=== PATIENT | female | born 1960 | race Two or more races ===

== ENCOUNTER 2018-03-05 17:41 | Inpatient (IN) | payer MEDICARE, OTHER ==
[~2018-03-05] VITALS: Ht 167.6 cm; Wt 75.3 kg
--- NOTE | 2018-03-05 19:42 | PHYS DOC ---
Adult General Chief Complaint Chief Complaint: DIALYSIS PROBLEM HPI HPI Patient is a 57 year old female who presents with this [facility] she had a new dialysis catheter placed in her right chest. Her old catheter stopped working after she received her for full dialysis treatment on Monday. She only received a half dialysis on . Today she went to have dialysis and were able to flush the port but the dialysis would not work when it was up. Patient states that at [facility] they put Flow in the catheter and then pulled back and got some clot-like stuff out of it. Patient states they then started to try else's again and is still would not work. [facility] sent them to the ED. Review of Systems Review of Systems Constitutional: Denies fever or chills [] Eyes: Denies change in visual acuity, redness, or eye pain [] HENT: Denies nasal congestion or sore throat [] Respiratory: Denies cough or shortness of breath [] Cardiovascular: No additional information not addressed in HPI [] GI: Realized abdominal pain, nausea, vomiting, denies bloody stools or diarrhea [] : Denies dysuria or hematuria [] Musculoskeletal: Denies back pain or joint pain [] Integument: Denies rash or skin lesions [] Neurologic: Denies headache, focal weakness or sensory changes [] All other systems were reviewed and found to be within normal limits, except as documented in this note. Allergies Allergies Physical Exam Physical Exam Constitutional: Well developed, well nourished, no acute distress, non-toxic appearance. [] HENT: Normocephalic, atraumatic, bilateral external ears normal, oropharynx moist, no oral exudates, nose normal. [] Eyes: PERRLA, EOMI, conjunctiva normal, no discharge. [] Neck: Normal range of motion, no tenderness, supple, no stridor. [] Cardiovascular:Heart rate regular rhythm, no murmur [] Lungs & Thorax: Bilateral breath sounds clear to auscultation [] Abdomen: Bowel sounds normal, firm, generalized tenderness, no masses, no pulsatile masses. [] Skin: Warm, dry, no erythema, no rash. [] Back: No tenderness, no CVA tenderness. [] Extremities: No tenderness, no cyanosis, no clubbing, ROM intact, no edema. [] Neurologic: Alert and oriented X 3, normal motor function, normal sensory function, no focal deficits noted. [] Psychologic: Affect normal, judgement normal, mood normal. [] Current Patient Data Vital Signs Vital Signs Date Time Temp Pulse Resp B/P (MAP) Pulse Ox O2 Delivery O2 Flow Rate FiO2 03/05/18 21:17 104 16 123/82 (96) 100 Nasal Cannula 2.0 03/05/18 19:20 97.9 97.9 Lab Values Laboratory Tests Test 03/05/18 20:10 White Blood Count 15.1 x10^3/uL (4.0-11.0) H Red Blood Count 2.72 x10^6/uL (3.50-5.40) L Hemoglobin 7.9 g/dL (12.0-15.5) L Hematocrit 24.8 % (36.0-47.0) L Mean Corpuscular Volume 91 fL (79-100) Mean Corpuscular Hemoglobin 29 pg (25-35) Mean Corpuscular Hemoglobin Concent 32 g/dL (31-37) Red Cell Distribution Width 19.5 % (11.5-14.5) H Platelet Count 383 x10^3/uL (140-400) Neutrophils (%) (Auto) 90 % (31-73) H Lymphocytes (%) (Auto) 4 % (24-48) L Monocytes (%) (Auto) 6 % (0-9) Eosinophils (%) (Auto) 0 % (0-3) Basophils (%) (Auto) 0 % (0-3) Neutrophils # (Auto) 13.5 x10^3uL (1.8-7.7) H Lymphocytes # (Auto) 0.5 x10^3/uL (1.0-4.8) L Monocytes # (Auto) 1.0 x10^3/uL (0.0-1.1) Eosinophils # (Auto) 0.1 x10^3/uL (0.0-0.7) Basophils # (Auto) 0.0 x10^3/uL (0.0-0.2) Segmented Neutrophils % 91 % (35-66) H Band Neutrophils % 4 % (0-9) Lymphocytes % 2 % (24-48) L Monocytes % 3 % (0-10) Nucleated Red Blood Cells 1 Toxic Granulation Slight Platelet Estimate Adequate (ADEQUATE) Giant Platelets Occ Polychromasia Slight Hypochromasia Slight Poikilocytosis Slight Basophilic Stippling Present Anisocytosis Slight Spherocytes Occ Helmet Cells Occ Sodium Level 136 mmol/L (136-145) Potassium Level 5.6 mmol/L (3.5-5.1) H Chloride Level 94 mmol/L (98-107) L Carbon Dioxide Level 31 mmol/L (21-32) Anion Gap 11 (6-14) Blood Urea Nitrogen 131 mg/dL (7-20) H Creatinine 8.5 mg/dL (0.6-1.0) H Estimated GFR (Cockcroft-Gault) 4.8 BUN/Creatinine Ratio 15 (6-20) Glucose Level 93 mg/dL (70-99) Calcium Level 9.9 mg/dL (8.5-10.1) Total Bilirubin 0.3 mg/dL (0.2-1.0) Aspartate Amino Transferase (AST) 47 U/L (15-37) H Alanine Aminotransferase (ALT) 16 U/L (14-59) Alkaline Phosphatase 142 U/L (46-116) H Total Protein 6.7 g/dL (6.4-8.2) Albumin 2.2 g/dL (3.4-5.0) L Albumin/Globulin Ratio 0.5 (1.0-1.7) L Laboratory Tests 03/05/18 20:10 Laboratory Tests 03/05/18 20:10 EKG EKG Sinus rhythm no STEMI[] Interpretation Time: [address] CATHERINE Radiology/Procedures Radiology/Procedures PROCEDURE: CHEST PA & LATERAL CHEST PA LATERAL History: SOA,VOMITING, DIALYSIS PORT NOT WORKING Comparison: None. Findings: Right chest Port-A-Cath, tip at superior atriocaval junction. There is right IJ hemodialysis catheter, tip in the upper right atrium. There is left Pleurx catheter. Cardiac size upper limits of normal. Pulmonary vasculature is normal. Trace bilateral pleural effusions. Mild bibasilar airspace disease. No pneumothorax is seen. There is no acute bone abnormality. IMPRESSION: Trace bilateral pleural effusions. Mild bibasilar airspace disease. Electronically signed by: Chase Traylor MD (03/05/2018 11:08 PM) [facility] Course & Med Decision Making Course & Med Decision Making Patient is a 57 year old female who presents with this [facility] she had a new dialysis catheter placed in her right chest. Her old catheter stopped working after she received her for full dialysis treatment on Monday. She only received a half dialysis on . Today she went to have dialysis and were able to flush the port but the dialysis would not work when it was up. Patient states that at [facility] they Cath Flow in the catheter and then pulled back and got some clot-like stuff out of it. Patient states they then started to try else's again and is still would not work. [facility] sent them to the ED. patient states she has pain were the fresh catheter was placed today but otherwise no pain. She states she vomited twice this morning. Abdomen is firm and tender with palpation. Patient is alert and oriented. Skin is pink warm and dry. Mucous membranes are moist. She denies chest pain, shortness of air, dizziness, numbness or tingling or focal weaknesses. I spoken to Dr. Gomez from Interventional radiology he states he can place a temporary catheter tomorrow morning dialysis patient. States also consult nephrology. I have spoken to Dr Lawrence with Nephrology and he states to make sure to give her Kayexalate and then she can be dialyzed in the morning. Dragon Disclaimer Dragon Disclaimer This electronic medical record was generated, in whole or in part, using a voice recognition dictation system. Departure Departure Impression: Primary Impression: Hyperkalemia Additional Impression: Dialysis catheter clot or failure Disposition: ADMITTED INPATIENT Admitting Physician: Xie. Miranda Condition: GUARDED Referrals: FERNANDEZ PERRY MD (PCP) Problem Qualifiers ANA GARCIA APRN Mar 05, 2018 19:42 GARO CATHERINE DO Mar 07, 2018 14:27
[2018-03-05 20:39] LABS: CALCIUM 9.9 mg/dL (8.5-10.1); CREATININE 8.5 mg/dL (0.6-1.0); GFR 4.8; POTASSIUM 5.6 mmol/L (3.5-5.1)
[2018-03-05 20:40] LABS: BASO % 0 % (0-3); EOS # 0.1 x10^3/uL (0.0-0.7); EOS % 0 % (0-3); HEMATOCRIT 24.8 % (36.0-47.0); HEMOGLOBIN 7.9 g/dL (12.0-15.5); LYMPH # 0.5 x10^3/uL (1.0-4.8); LYMPH % 4 % (24-48); MEAN CORPUSCULAR HEMOGLOBIN 29 pg (25-35); MEAN CORPUSCULAR HGB CONC 32 g/dL (31-37); MEAN CORPUSCULAR VOLUME 91 fL (79-100); MONO % 6 % (0-9); NEUT # 13.5 x10^3uL (1.8-7.7); NEUT % 90 % (31-73); PLATELET COUNT 383 x10^3/uL (140-400); RED BLOOD COUNT 2.72 x10^6/uL (3.50-5.40); RED CELL DISTRIBUTION WIDTH 19.5 % (11.5-14.5); WHITE BLOOD COUNT 15.1 x10^3/uL (4.0-11.0)
[2018-03-05 20:45] LABS: ALBUMIN 2.2 g/dL (3.4-5.0); ALBUMIN/GLOBULIN RATIO 0.5 (1.0-1.7); TOTAL BILIRUBIN 0.3 mg/dL (0.2-1.0); TOTAL PROTEIN 6.7 g/dL (6.4-8.2)
[2018-03-05 21:32] LABS: % BANDS 4 % (0-9); % LYMPHS 2 % (24-48); % MONOS 3 % (0-10); % SEGS 91 % (35-66); ANISOCYTOSIS SLIGHT; HYPOCHROMIA SLIGHT; NUCLEATED RBC 1; PLT ESTIMATE ADEQUATE (ADEQUATE); POIKILOCYTOSIS SLIGHT; POLYCHROMASIA SLIGHT; SPHEROCYTES OCC
[2018-03-05 21:33] LABS: HELMET CELLS OCC; TOXIC GRANULATION SLIGHT
[2018-03-05] MEDS ORDERED: ONDANSETRON PF 4 MG/2 ML VIAL. IV PRN (22:00)
[2018-03-05] MEDS ORDERED: SODIUM POLYSTYRENE SULFONATE 15 GM/60 ML ORAL.SUSP. PO ONE (22:15)
[2018-03-05] MEDS ORDERED: SODIUM BICARB ADULT 8.4% 50 MEQ/50 ML DISP.SYRIN. IV ONE (22:15)
[2018-03-05] MEDS ORDERED: CALCIUM GLUCONATE 1,000 MG/10 ML VIAL. IVP ONE (22:15)
[2018-03-05] MEDS ORDERED: ONDANSETRON PF 4 MG/2 ML VIAL. IV ONE (22:45)
[2018-03-05] MEDS: fentaNYL PF VIAL 100 MCG/2 ML VIAL IV PRN (22:55)
--- NOTE | 2018-03-05 23:12 | RAD ---
CHEST PA LATERAL History: SOA,VOMITING, DIALYSIS PORT NOT WORKING Comparison: None. Findings: Right chest Port-A-Cath, tip at superior atriocaval junction. There is right IJ hemodialysis catheter, tip in the upper right atrium. There is left Pleurx catheter. Cardiac size upper limits of normal. Pulmonary vasculature is normal. Trace bilateral pleural effusions. Mild bibasilar airspace disease. No pneumothorax is seen. There is no acute bone abnormality. IMPRESSION: Trace bilateral pleural effusions. Mild bibasilar airspace disease. Electronically signed by: Chase Traylor MD (03/05/2018 11:08 PM) [facility]
--- NOTE | 2018-03-05 23:52 | NUR ---
Pt.just arrived from ED w/ a dialysis catheter problem. She is A/O x4 and will make needs known. @ BS.
[2018-03-06] VITALS (15 sets, daily range): BP systolic 109–136; BP diastolic 67–86
--- NOTE | 2018-03-06 00:36 | EKG ---
[facility] [address] [place] [address] Test Date: 2018-03-05 Test Time: 19:53:44 Pat Name: MARIA LUISA HAYES Department: Room: [facility] Gender: Female Graduate Intern: : 1960 Requested By: ANA GARCIA Order Number: [id number] Reading MD: Fahad Moran Measurements Intervals Marine Rate: 97 P: 51 VA: 138 QRS: 43 QRSD: 82 T: 31 QT: 326 QTc: 418 Interpretive Statements SINUS RHYTHM LEFT ATRIAL ABNORMALITY Electronically Signed On 03-09-2018 17:14:07 JAW SKINNER by Fahad Moran
[2018-03-06] MEDS ORDERED: DEXA4TAB PO (03:51)
[2018-03-06] MEDS ORDERED: MELA3TAB2 PO (03:51)
[2018-03-06] MEDS ORDERED: FENT1PAT17 TP (03:51)
[2018-03-06] MEDS ORDERED: CARV25TA2 PO (03:51)
[2018-03-06] MEDS ORDERED: CLON0.1T PO (03:51)
[2018-03-06] MEDS ORDERED: ONDA4TAB12 PO (03:51)
[2018-03-06] MEDS ORDERED: POLY17PO29 PO (03:51)
[2018-03-06] MEDS ORDERED: GUAI118L13 PO (03:51)
[2018-03-06] MEDS ORDERED: OXYC5CAP PO (03:51)
[2018-03-06] MEDS ORDERED: FAMO40TA4 PO (03:51)
[2018-03-06] MEDS ORDERED: LORA0.5T96 PO (03:51)
[2018-03-06] MEDS ORDERED: ALBU2.5V8 INH (03:51)
[2018-03-06] MEDS ORDERED: SERT100T PO (03:51)
[2018-03-06] MEDS ORDERED: FLUT9.9S NS (03:51)
[2018-03-06] MEDS ORDERED: CALC667T4 PO (03:51)
[2018-03-06] MEDS ORDERED: SENN-87 PO (03:51)
[2018-03-06] MEDS ORDERED: MULT-735 PO (03:51)
[2018-03-06] MEDS: fentaNYL PF VIAL 100 MCG/2 ML VIAL IV PRN (05:35)
[2018-03-06] MEDS ORDERED: oxyCODONE IR 5 MG TABLET PO PRN (06:15)
[2018-03-06] MEDS ORDERED: PROCHLORPERAZINE 10 MG/2 ML VIAL. IM PRN (06:15)
[2018-03-06] MEDS ORDERED: LIDOCAINE 1%/EPI 1:100,000 20 ML VIAL. ONE (09:11)
[2018-03-06] MEDS ORDERED: MIDAZOLAM HCL/PF 2 MG/2 ML VIAL. ONE (09:34)
[2018-03-06] MEDS ORDERED: fentaNYL PF VIAL 100 MCG/2 ML VIAL ONE (09:34)
[2018-03-06] MEDS ORDERED: HEPARIN for IV BOLUS 10,000 UNIT/10 ML VIAL. ONE (09:44)
--- NOTE | 2018-03-06 10:20 | RAD ---
Procedure: Tunneled hemodialysis catheter placement and tunneled hemodialysis catheter removal Clinical Indication: 57-year-old female with nonfunctioning right IJ tunneled hemodialysis catheter, requiring hemodialysis. Sedation: Conscious sedation was administered for 27 minutes. The patient was monitored by a qualified independent observer throughout the time of sedation. Please refer to the medical record for exact doses of medications utilized to achieve moderate sedation. Antibiotics: Antibiotic was administered intravenously within 1 hour of the procedure start time. Fluoro Time: 0.3 minutes. Images: 2 Contrast: None Sterility: All elements of maximal sterile barrier technique including the use of a cap, mask, sterile gown, sterile gloves, large sterile sheet, appropriate hand hygiene, and 2% chlorhexidine for cutaneous antisepsis (or acceptable alternative antiseptic per current guidelines) were followed for this procedure. Consent: The procedure was explained in its entirety to the patient or the patients designated communications representative by a member of the treatment team, including a discussion of the risks, benefits and commonly accepted alternatives to the procedure, as well as the expected consequences of no therapy whatsoever. Discussion of the risks included, but was not limited to, those that are most frequent and those that are rare but possibly severe or life-threatening, as well as the possibility of unforeseen complications. Technique and Findings: Following informed consent, the patient was prepped and draped in the usual sterile fashion. Fluoroscopy over the right chest revealed a kinked right IJ tunnel hemodialysis catheter. This was deemed not suitable for use and suboptimal for exchange. Ultrasound interrogation of the left neck revealed patency and compressibility of the left internal jugular vein. A 21-gauge micropuncture was then used to gain access to this vein under ultrasound guidance. A hard copy ultrasound image was recorded. The needle was exchanged over a wire for a 4 Burmese sheath which was used to guide an Amplatz wire into the IVC. The skin over the left anterior chest wall was copiously anesthetized with 1% Lidocaine plus Epinephrine and a small dermatotomy was made. A 28 cm palindrome tunneled hemodialysis catheter was then tunneled subcutaneously towards the neck dermatotomy and deployed through a large caliber peel-away sheath under fluoroscopic guidance such that the distal tip resided in the mid right atrium. Manual flow rates were assessed and found to be excellent. The catheter was then flushed, packed with Heparin, capped, and sutured to the skin. The neck dermatotomy was closed with Dermabond. The tunneled catheter on the right was then anesthetized 1% lidocaine and blunt dissection techniques were used to free the cuff, and the catheter was then removed in its entirety and hemostasis was achieved with manual compression. Complications: No immediate Impression: 1. Tunneled hemodialysis catheter placement via the left internal jugular vein as described. This catheter demonstrates excellent manual flow rates and is suitable for use immediately. 2. Tunneled hemodialysis catheter removal from the right internal jugular vein as described.
[2018-03-06] MEDS ORDERED: fentaNYL PF VIAL 100 MCG/2 ML VIAL IV ONE (10:30)
[2018-03-06] MEDS ORDERED: MIDAZOLAM HCL/PF 2 MG/2 ML VIAL. IV ONE (10:30)
[2018-03-06] MEDS ORDERED: LIDOCAINE 1%/EPI 1:100,000 20 ML VIAL. IJ ONE (10:30)
[2018-03-06] MEDS ORDERED: LORazepam 0.5 MG TABLET PO PRN (11:30)
[2018-03-06] MEDS ORDERED: guaiFENesin/CODEINE 100mg/10mg 5 ML LIQUID PO PRN (11:45)
[2018-03-06] MEDS: SERTRALINE 50 MG TABLET. PO SCH (12:14)
[2018-03-06] MEDS: CARVEDILOL 6.25 MG TABLET. PO SCH ×2 (12:15→18:11)
[2018-03-06] MEDS: cloNIDine HCL 0.1 MG TABLET PO SCH ×2 (12:15→20:51)
[2018-03-06] MEDS: DEXAMETHASONE 4 MG TABLET PO SCH (12:15)
[2018-03-06] MEDS: SENNOSIDES 8.6 MG TABLET PO SCH (12:15)
[2018-03-06] MEDS: MULTIVITAMIN with MINERAL TABLET. PO SCH (12:15)
[2018-03-06] MEDS: FLUTICASONE 50MCG/NASAL SPRAY 16GM BOTTLE. NS SCH (12:16)
[2018-03-06] MEDS: CALCIUM ACETATE 667 MG CAPSULE PO SCH ×2 (12:16→18:10)
[2018-03-06] MEDS ORDERED: IV NORMAL SALINE 1000ML BAG 1,000 ML IV PRN ×2 (12:30)
[2018-03-06] MEDS: PROCHLORPERAZINE 10 MG/2 ML VIAL. IV PRN (12:34)
--- NOTE | 2018-03-06 13:11 | PDOC2 ---
CONSULT Date of Consult Date of Consult DATE: 03/06/18 TIME: 12:53 Reason for Consult Reason for Consult: ESRD, ^K Referring Physician Referring Physician: Aidee Arias in ER Identification/Chief Complaint Chief Complaint not feeling good. Non-functioning HD Cath Source Source: Caregiver (), Chart review, Patient History of Present Illness Reason for Visit: Mrs. Cox is a pleasant 57-year-old female who currently dial[facility]zes [facility] a [facility] the care of Dr. Richey. She has had difficulties with hemodialysis catheter malfunction. She' s had this replaced almost 2-3 times. tPA was administered at the dialysis unit yesterday in an attempt to get it to work however this failed and she was sent to the ER for further evaluation. Her potassium was 5.6 at presentation and hence it was decided to admit the patient. She was initially treated with Kayexalate. Interventional radiology has been consulted for dialysis catheter exchange. This will be tried on hemodialysis later today. Based on my discussion with the patient it appears that she has not had dialysis for almost a week. Her ESRD status has been attribute it to chemotherapy for ovarian cancer Past Medical History Past Medical History Ovarian cancer status post chemotherapy ESRD on dialysis Previous history of tobaccoism Anemia chronic kidney disease GERD Depression Family History Family History Noncontributory to current problems. Social History Quit Lives: with Family Domestic Violence: Neg Current Problem List Problem List Problems Medical Problems: (1) Dialysis catheter clot or failure Status: Acute (2) Serum potassium elevated Status: Acute Current Medications Current Medications Current Medications Ondansetron HCl (Zofran) 4 mg PRN Q8HRS PRN IV NAUSEA/VOMITING Last administered on 03/06/18at 05:34; Start 03/05/18 at 22:00; Stop 03/06/18 at 21:59 Fentanyl Citrate (Fentanyl 2ml Vial) 50 mcg PRN Q1HR PRN IV PAIN Last administered on 03/06/18at 05:35; Start 03/05/18 at 22:00; Stop 03/06/18 at 21:59 Calcium Gluconate (Calcium Gluconate) 1,000 mg 1X ONCE IVP Last administered on 03/05/18at 23:23; Start 03/05/18 at 22:15; Stop 03/05/18 at 22:16; Status DC Sodium Bicarbonate (Sodium Bicarb Adult 8.4% Syr) 50 meq 1X ONCE IV Last administered on 03/05/18at 23:23; Start 03/05/18 at 22:15; Stop 03/05/18 at 22 :16; Status DC Sodium Polystyrene Sulfonate (Kayexalate) 30 gm 1X ONCE PO Last administered on 03/05/18at 23:23; Start 03/05/18 at 22:15; Stop 03/05/18 at 22:16; Status DC Ondansetron HCl (Zofran) 4 mg 1X ONCE IV Last administered on 03/05/18at 22:55 ; Start 03/05/18 at 22:45; Stop 03/05/18 at 22:55; Status DC Prochlorperazine Edisylate (Compazine) 10 mg PRN Q6HRS PRN IM NAUSEA/VOMITING; Start 03/06/18 at 06:15; Stop 03/06/18 at 12:32; Status DC Oxycodone HCl (Roxicodone) 10 mg PRN Q4HRS PRN PO PAIN; Start 03/06/18 at 06:15 Oxycodone HCl (Roxicodone) 20 mg PRN Q4HRS PRN PO PAIN; Start 03/06/18 at 06:15 Lidocaine/ Epinephrine (LIDOCAINE 1%-EPI 1:100,000 Multi-Dose) 20 ml STK-MED ONCE .ROUTE ; Start 03/06/18 at 09:11; Stop 03/06/18 at 09:12; Status DC Cefazolin Sodium 50 ml @ As Directed STK-MED ONCE IV ; Start 03/06/18 at 09:34; Stop 03/06/18 at 09:35; Status DC Midazolam HCl (Versed) 2 mg STK-MED ONCE .ROUTE ; Start 03/06/18 at 09:34; Stop 03/06/18 at 09:35; Status DC Fentanyl Citrate (Fentanyl 2ml Vial) 100 mcg STK-MED ONCE .ROUTE ; Start at 09:34; Stop 03/06/18 at 09:35; Status DC Heparin Sodium (Porcine) (Heparin Sodium) 10,000 unit STK-MED ONCE .ROUTE ; Start 03/06/18 at 09:44; Stop 03/06/18 at 09:46; Status DC Midazolam HCl (Versed) 2 mg 1X ONCE IV Last administered on 03/06/18 10:11; Start 03/06/18 at 10:30; Stop 03/06/18 at 10:35; Status DC Fentanyl Citrate (Fentanyl 2ml Vial) 100 mcg 1X ONCE IV Last administered on at 10:11; Start 03/06/18 at 10:30; Stop 03/06/18 at 10:35; Status DC Lidocaine/ Epinephrine (LIDOCAINE 1%-EPI 1:100,000 Multi-Dose) 20 ml 1X ONCE IJ Last administered on 03/06/18at 10:09; Start 03/06/18 at 10:30; Stop 03/06/18 at 10:35; Status DC Cefazolin Sodium 50 ml @ 100 mls/hr 1X ONCE IV Last administered on 03/06/18 10:11; Start 03/06/18 at 10:30; Stop 03/06/18 at 10:59; Status DC Heparin Sodium (Porcine) (Heparin Sodium) 4,200 unit 1X ONCE INT CAT Last administered on 03/06/18at 10:11; Start 03/06/18 at 10:30; Stop 03/06/18 at 10:35; Status DC Clonidine HCl (Catapres) 0.1 mg BID PO Last administered on 03/06/18 12:15; Start 03/06/18 at 12:00 Dexamethasone (Decadron) 16 mg DAILY PO Last administered on 03/06/18at 12:15; Start 03/06/18 at 12:00 Fentanyl (Duragesic 50mcg/ Hr Patch) 1 patch Q3DAYS TD ; Start 03/09/18 at 09:00 Lorazepam (Ativan) 0.5 mg PRN Q12HRS PRN PO ANXIETY / AGITATION; Start 03/06/18 at 11:30 Ondansetron HCl (Zofran Odt) 8 mg PRN Q8HRS PRN PO NAUSEA/VOMITING; Start at 11:30 Calcium Acetate (Phoslo) 667 mg TIDWMEALS PO Last administered on 03/06/18at 12: 16; Start 03/06/18 at 12:00 Carvedilol (Coreg) 6.25 mg BIDWMEALS PO Last administered on 03/06/18at 12:15; Start 03/06/18 at 12:00 Famotidine (Pepcid) 20 mg QHS PO ; Start 03/06/18 at 21:00 Fluticasone Propionate (Flonase) 1 spray DAILY NS Last administered on at 12:16; Start 03/06/18 at 12:00 Guaifenesin/ Codeine Phosphate (Robitussin Ac) 10 ml PRN Q4HRS PRN PO COUGH; Start 03/06/18 at 11:45 Non-Formulary Medication (Melatonin ) 1 tab QHS PO ; Start 03/06/18 at 21:00; Status UNV Multivitamins (Thera M Plus) 1 tab DAILY PO Last administered on 03/06/18at 12:15 ; Start 03/06/18 at 12:00 Polyethylene Glycol (miraLAX PACKET) 17 gm QHS PO ; Start 03/06/18 at 21:00 Sennosides (Senna) 8.6 mg DAILY PO Last administered on 03/06/18at 12:15; Start 03/06/18 at 12:00 Sertraline HCl (Zoloft) 150 mg DAILY PO Last administered on 03/06/18at 12:14; Start 03/06/18 at 12:00 Prochlorperazine Edisylate (Compazine) 10 mg PRN Q6HRS PRN IV NAUSEA/VOMITING Last administered on 03/06/18at 12:34; Start 03/06/18 at 12:45 Active Scripts Active Reported Zoloft (Sertraline Hcl) 100 Mg Tablet 150 Mg PO DAILY Senna Lax (Sennosides) 8.6 Mg Tablet 8.6 Mg PO DAILY Proair Hfa (Albuterol Sulfate) 8.5 Gm Hfa.aer.ad 2 Puff INH PRN Q6HRS PRN Miralax (Polyethylene Glycol 3350) 17 Gm Powd.pack 1 Pkt PO HS Oxycodone Hcl 5 Mg Capsule 20 Mg PO PRN Q4HRS PRN Oxycodone Hcl 5 Mg Capsule 10 Mg PO PRN Q4HRS PRN Ondansetron Odt (Ondansetron) 4 Mg Tab.rapdis 8 Mg PO PRN Q8HRS PRN One-Daily Multi-Vitamin (Multivitamin) 1 Each Tablet 1 Each PO HS Melatonin 3 Mg Tablet 1 Tab PO QHS Ativan (Lorazepam) 0.5 Mg Tablet 0.5 Mg PO PRN Q12HRS PRN Guaifenesin-Codeine Syrup (Guaifenesin/Codeine Phosphate) 118 Ml Liquid 10 Ml PO PRN Q4HRS PRN Flonase Allergy Relief (Fluticasone Propionate) 9.9 Ml Sylvester.susp 1 Sprays NS DAILY FENTANYL 50mcg/hr (Fentanyl) 1 Each Patch.td72 1 Patch TP Q3DAYS Famotidine 40 Mg Tablet 20 Mg PO HS Dexamethasone 4 Mg Tablet 4 Tab PO DAILY Clonidine Hcl 0.1 Mg Tablet 0.1 Mg PO BID Carvedilol 25 Mg Tablet 6.25 Mg PO BIDWMEALS Calcium Acetate 667 Mg Tablet 667 Mg PO TIDWMEALS Allergies Allergies: Coded Allergies: Iodinated Contrast- Oral and IV Dye (Verified Allergy, Intermediate, ) milk (Verified Allergy, Intermediate, 03/06/18) paclitaxel (Verified Allergy, Intermediate, 03/06/18) ROS Review of System as per HPI. 14 - pt ROS reviewed with Pt and Physical Exam Physical Exam General Appearance: Awake, slightly drowsy vs tired. Oriented x 3 In no Distress Eyes: VIsion Unchanged Conjunctiva Normal EN: No EN Drainage Mucous Memb. moist Neck: no JVD min JVP Supple no Thyromegaly CVS: S1 S2 ? Murmur No Gallop No Rub tr Edema Resp: no Rales no Rhonchi no Acc. Muscle use GI: BAS +ve NO Bruit Non Tender ? Obese vs Distended : no CVA tenderness; no Suprapubic Tenderness SKIN: no visible petechial Rashes Breast Exam deferred Mu.Sk: Adequate ROM min Muscle Atrophy Heme: Unable to palpate Obvious LAD no palp Splenomegaly NEURO: Good Strength and Tone Cranial Nerves II - XII grossly intact Psych: somewhat Depressed vs Ch Ill appearring, no Active hallucination Vital Signs Vital Signs Date Time Temp Pulse Resp B/P (MAP) Pulse Ox O2 Delivery O2 Flow Rate FiO2 03/06/18 12:15 107 115/67 03/06/18 12:05 18 98 Nasal Cannula 2.0 03/06/18 11:00 97.6 97.6 Assessment & Plan ESRD : Dialysis as below F 180 NR 3.5 Hrs 2 K 2.5 Ca 140 Na 35 HC03 Qb 350 + Qd 500+ Heparin 0 Units Uf 0-1 Kgs or to dry weight as tolerated May give 25-50 gms of 25% Albumin if needed to maintain Hemodynamic stability Treatment plan reviewed and discussed with inspector exhaust emissions Poorly functioning hemodialysis catheter: This appears to have been changed out. We will see how this works Anemia: Epogen as ordered. Transfuse with next HD as needed. HTN: Current BP meds reviewed. See orders for changes. Possible intravascular volume depletion cannot be ruled out. Probably due to poor by mouth intake Hyperkalemia: Patient was treated with Kayexalate. I anticipate this to improve with dialysis. Possible uremic symptoms. It is unclear to me if some of this is related to her lack of dialysis for approximately one week versus associated with her underlying ovarian cancer. She is agreeable to dialysis to 3 straight days in a row. Will attempt to get her back on her regular outpatient schedule Bone & Mineral: Follow phosphorus levels and alter binder regimen as needed. Discussed Plan of Care and prognosis etc. at length with family. Labs Labs Laboratory Tests Test 03/05/18 20:10 03/06/18 07:35 White Blood Count 15.1 x10^3/uL (4.0-11.0) Red Blood Count 2.72 x10^6/uL (3.50-5.40) Hemoglobin 7.9 g/dL (12.0-15.5) Hematocrit 24.8 % (36.0-47.0) Mean Corpuscular Volume 91 fL (79-100) Mean Corpuscular Hemoglobin 29 pg (25-35) Mean Corpuscular Hemoglobin Concent 32 g/dL (31-37) Red Cell Distribution Width 19.5 % (11.5-14.5) Platelet Count 383 x10^3/uL (140-400) Neutrophils (%) (Auto) 90 % (31-73) Lymphocytes (%) (Auto) 4 % (24-48) Monocytes (%) (Auto) 6 % (0-9) Eosinophils (%) (Auto) 0 % (0-3) Basophils (%) (Auto) 0 % (0-3) Neutrophils # (Auto) 13.5 x10^3uL (1.8-7.7) Lymphocytes # (Auto) 0.5 x10^3/uL (1.0-4.8) Monocytes # (Auto) 1.0 x10^3/uL (0.0-1.1) Eosinophils # (Auto) 0.1 x10^3/uL (0.0-0.7) Basophils # (Auto) 0.0 x10^3/uL (0.0-0.2) Segmented Neutrophils % 91 % (35-66) Band Neutrophils % 4 % (0-9) Lymphocytes % 2 % (24-48) Monocytes % 3 % (0-10) Nucleated Red Blood Cells 1 Toxic Granulation Slight Platelet Estimate Adequate (ADEQUATE) Giant Platelets Occ Polychromasia Slight Hypochromasia Slight Poikilocytosis Slight Basophilic Stippling Present Anisocytosis Slight Spherocytes Occ Helmet Cells Occ Sodium Level 136 mmol/L (136-145) Potassium Level 5.6 mmol/L (3.5-5.1) Chloride Level 94 mmol/L (98-107) Carbon Dioxide Level 31 mmol/L (21-32) Anion Gap 11 (6-14) Blood Urea Nitrogen 131 mg/dL (7-20) Creatinine 8.5 mg/dL (0.6-1.0) Estimated GFR (Cockcroft-Gault) 4.8 BUN/Creatinine Ratio 15 (6-20) Glucose Level 93 mg/dL (70-99) Calcium Level 9.9 mg/dL (8.5-10.1) Total Bilirubin 0.3 mg/dL (0.2-1.0) Aspartate Amino Transf (AST/SGOT) 47 U/L (15-37) Alanine Aminotransferase (ALT/SGPT) 16 U/L (14-59) Alkaline Phosphatase 142 U/L (46-116) Total Protein 6.7 g/dL (6.4-8.2) Albumin 2.2 g/dL (3.4-5.0) Albumin/Globulin Ratio 0.5 (1.0-1.7) Glucose (Fingerstick) 94 mg/dL (70-99) Laboratory Tests Test 03/05/18 20:10 03/06/18 07:35 White Blood Count 15.1 x10^3/uL (4.0-11.0) Red Blood Count 2.72 x10^6/uL (3.50-5.40) Hemoglobin 7.9 g/dL (12.0-15.5) Hematocrit 24.8 % (36.0-47.0) Mean Corpuscular Volume 91 fL (79-100) Mean Corpuscular Hemoglobin 29 pg (25-35) Mean Corpuscular Hemoglobin Concent 32 g/dL (31-37) Red Cell Distribution Width 19.5 % (11.5-14.5) Platelet Count 383 x10^3/uL (140-400) Neutrophils (%) (Auto) 90 % (31-73) Lymphocytes (%) (Auto) 4 % (24-48) Monocytes (%) (Auto) 6 % (0-9) Eosinophils (%) (Auto) 0 % (0-3) Basophils (%) (Auto) 0 % (0-3) Neutrophils # (Auto) 13.5 x10^3uL (1.8-7.7) Lymphocytes # (Auto) 0.5 x10^3/uL (1.0-4.8) Monocytes # (Auto) 1.0 x10^3/uL (0.0-1.1) Eosinophils # (Auto) 0.1 x10^3/uL (0.0-0.7) Basophils # (Auto) 0.0 x10^3/uL (0.0-0.2) Segmented Neutrophils % 91 % (35-66) Band Neutrophils % 4 % (0-9) Lymphocytes % 2 % (24-48) Monocytes % 3 % (0-10) Nucleated Red Blood Cells 1 Toxic Granulation Slight Platelet Estimate Adequate (ADEQUATE) Giant Platelets Occ Polychromasia Slight Hypochromasia Slight Poikilocytosis Slight Basophilic Stippling Present Anisocytosis Slight Spherocytes Occ Helmet Cells Occ Sodium Level 136 mmol/L (136-145) Potassium Level 5.6 mmol/L (3.5-5.1) Chloride Level 94 mmol/L (98-107) Carbon Dioxide Level 31 mmol/L (21-32) Anion Gap 11 (6-14) Blood Urea Nitrogen 131 mg/dL (7-20) Creatinine 8.5 mg/dL (0.6-1.0) Estimated GFR (Cockcroft-Gault) 4.8 BUN/Creatinine Ratio 15 (6-20) Glucose Level 93 mg/dL (70-99) Calcium Level 9.9 mg/dL (8.5-10.1) Total Bilirubin 0.3 mg/dL (0.2-1.0) Aspartate Amino Transf (AST/SGOT) 47 U/L (15-37) Alanine Aminotransferase (ALT/SGPT) 16 U/L (14-59) Alkaline Phosphatase 142 U/L (46-116) Total Protein 6.7 g/dL (6.4-8.2) Albumin 2.2 g/dL (3.4-5.0) Albumin/Globulin Ratio 0.5 (1.0-1.7) Glucose (Fingerstick) 94 mg/dL (70-99) Review All relevant outside records, renal labs, imaging studies, telemetry/EKG's were reviewed. Images Images Right chest Port-A-Cath, tip at superior atriocaval junction. There is right IJ hemodialysis catheter, tip in the upper right atrium. There is left Pleurx catheter. Cardiac size upper limits of normal. Pulmonary vasculature is normal. Trace bilateral pleural effusions. Mild bibasilar airspace disease. No pneumothorax is seen. There is no acute bone abnormality. IMPRESSION: Trace bilateral pleural effusions. Mild bibasilar airspace disease. JIGAR OLIVER MD Mar 06, 2018 13:11
[2018-03-06] MEDS ORDERED: MAGNESIUM SULFATE 2GM 50 ML IV PRN (13:45)
--- NOTE | 2018-03-06 13:46 | PDOC ---
Dialysis Progress Note Dialysis Note Dialysis Note Seen on Hemodialysis, tolerating treatment Okay so far. Dialysis catheter seems to be working okay at this time. IV fluid bolus will be administered to see if it helps some. Vitals on Hemodialysis: 98/57 110 It is possible that patient is intravascularly volume depleted. It is unclear to me if her edema is due to her underlying malignancy. I will check lower extremity duplex as well as abdominal sonogram due to her history of ovarian cancer. Vitals Vital Signs Vital Signs Date Time Temp Pulse Resp B/P (MAP) Pulse Ox O2 Delivery O2 Flow Rate FiO2 03/06/18 12:15 107 115/67 03/06/18 12:05 18 98 Nasal Cannula 2.0 03/06/18 11:00 97.6 97.6 Labs Last Labs Laboratory Tests Test 03/05/18 20:10 03/06/18 07:35 White Blood Count 15.1 x10^3/uL (4.0-11.0) Red Blood Count 2.72 x10^6/uL (3.50-5.40) Hemoglobin 7.9 g/dL (12.0-15.5) Hematocrit 24.8 % (36.0-47.0) Mean Corpuscular Volume 91 fL (79-100) Mean Corpuscular Hemoglobin 29 pg (25-35) Mean Corpuscular Hemoglobin Concent 32 g/dL (31-37) Red Cell Distribution Width 19.5 % (11.5-14.5) Platelet Count 383 x10^3/uL (140-400) Neutrophils (%) (Auto) 90 % (31-73) Lymphocytes (%) (Auto) 4 % (24-48) Monocytes (%) (Auto) 6 % (0-9) Eosinophils (%) (Auto) 0 % (0-3) Basophils (%) (Auto) 0 % (0-3) Neutrophils # (Auto) 13.5 x10^3uL (1.8-7.7) Lymphocytes # (Auto) 0.5 x10^3/uL (1.0-4.8) Monocytes # (Auto) 1.0 x10^3/uL (0.0-1.1) Eosinophils # (Auto) 0.1 x10^3/uL (0.0-0.7) Basophils # (Auto) 0.0 x10^3/uL (0.0-0.2) Segmented Neutrophils % 91 % (35-66) Band Neutrophils % 4 % (0-9) Lymphocytes % 2 % (24-48) Monocytes % 3 % (0-10) Nucleated Red Blood Cells 1 Toxic Granulation Slight Platelet Estimate Adequate (ADEQUATE) Giant Platelets Occ Polychromasia Slight Hypochromasia Slight Poikilocytosis Slight Basophilic Stippling Present Anisocytosis Slight Spherocytes Occ Helmet Cells Occ Sodium Level 136 mmol/L (136-145) Potassium Level 5.6 mmol/L (3.5-5.1) Chloride Level 94 mmol/L (98-107) Carbon Dioxide Level 31 mmol/L (21-32) Anion Gap 11 (6-14) Blood Urea Nitrogen 131 mg/dL (7-20) Creatinine 8.5 mg/dL (0.6-1.0) Estimated GFR (Cockcroft-Gault) 4.8 BUN/Creatinine Ratio 15 (6-20) Glucose Level 93 mg/dL (70-99) Calcium Level 9.9 mg/dL (8.5-10.1) Total Bilirubin 0.3 mg/dL (0.2-1.0) Aspartate Amino Transf (AST/SGOT) 47 U/L (15-37) Alanine Aminotransferase (ALT/SGPT) 16 U/L (14-59) Alkaline Phosphatase 142 U/L (46-116) Total Protein 6.7 g/dL (6.4-8.2) Albumin 2.2 g/dL (3.4-5.0) Albumin/Globulin Ratio 0.5 (1.0-1.7) Glucose (Fingerstick) 94 mg/dL (70-99) Laboratory Tests Test 03/05/18 20:10 03/06/18 07:35 White Blood Count 15.1 x10^3/uL (4.0-11.0) Red Blood Count 2.72 x10^6/uL (3.50-5.40) Hemoglobin 7.9 g/dL (12.0-15.5) Hematocrit 24.8 % (36.0-47.0) Mean Corpuscular Volume 91 fL (79-100) Mean Corpuscular Hemoglobin 29 pg (25-35) Mean Corpuscular Hemoglobin Concent 32 g/dL (31-37) Red Cell Distribution Width 19.5 % (11.5-14.5) Platelet Count 383 x10^3/uL (140-400) Neutrophils (%) (Auto) 90 % (31-73) Lymphocytes (%) (Auto) 4 % (24-48) Monocytes (%) (Auto) 6 % (0-9) Eosinophils (%) (Auto) 0 % (0-3) Basophils (%) (Auto) 0 % (0-3) Neutrophils # (Auto) 13.5 x10^3uL (1.8-7.7) Lymphocytes # (Auto) 0.5 x10^3/uL (1.0-4.8) Monocytes # (Auto) 1.0 x10^3/uL (0.0-1.1) Eosinophils # (Auto) 0.1 x10^3/uL (0.0-0.7) Basophils # (Auto) 0.0 x10^3/uL (0.0-0.2) Segmented Neutrophils % 91 % (35-66) Band Neutrophils % 4 % (0-9) Lymphocytes % 2 % (24-48) Monocytes % 3 % (0-10) Nucleated Red Blood Cells 1 Toxic Granulation Slight Platelet Estimate Adequate (ADEQUATE) Giant Platelets Occ Polychromasia Slight Hypochromasia Slight Poikilocytosis Slight Basophilic Stippling Present Anisocytosis Slight Spherocytes Occ Helmet Cells Occ Sodium Level 136 mmol/L (136-145) Potassium Level 5.6 mmol/L (3.5-5.1) Chloride Level 94 mmol/L (98-107) Carbon Dioxide Level 31 mmol/L (21-32) Anion Gap 11 (6-14) Blood Urea Nitrogen 131 mg/dL (7-20) Creatinine 8.5 mg/dL (0.6-1.0) Estimated GFR (Cockcroft-Gault) 4.8 BUN/Creatinine Ratio 15 (6-20) Glucose Level 93 mg/dL (70-99) Calcium Level 9.9 mg/dL (8.5-10.1) Total Bilirubin 0.3 mg/dL (0.2-1.0) Aspartate Amino Transf (AST/SGOT) 47 U/L (15-37) Alanine Aminotransferase (ALT/SGPT) 16 U/L (14-59) Alkaline Phosphatase 142 U/L (46-116) Total Protein 6.7 g/dL (6.4-8.2) Albumin 2.2 g/dL (3.4-5.0) Albumin/Globulin Ratio 0.5 (1.0-1.7) Glucose (Fingerstick) 94 mg/dL (70-99) Assessment Assessment Problems Medical Problems: (1) Dialysis catheter clot or failure Status: Acute (2) Serum potassium elevated Status: Acute Plan Plan of Care Problems Medical Problems: (1) Dialysis catheter clot or failure Status: Acute (2) Serum potassium elevated Status: Acute JIGAR OLIVER MD Mar 06, 2018 13:46
--- NOTE | 2018-03-06 13:52 | HP ---
ADMIT DATE: 03/05/2018 CHIEF COMPLAINT: Dialysis catheter failure. HISTORY OF PRESENT ILLNESS: The patient is a pleasant 57-year-old female who is suffering from a combination of ovarian cancer and end-stage renal disease and she is on dialysis. She has been dialyzing since 02/06/2018. She has had 2 different dialysis catheters put in, but they have both failed, 1 was done yesterday. Once again, her catheter has failed again. It is not functioning. We planned to admit her and get her to the vascular lab and get a new catheter again. It should be also noted that she has a PowerPort on her chest, right near the catheter that she is using for chemo for her ovarian cancer. She rates her symptoms at 7/10. She has associated weakness and pain, tried taking some [id number] meds, but that did not work, describes her diseases as very depressing. PAST MEDICAL HISTORY: Ovarian cancer with mets, end-stage renal disease and she was started on dialysis this month; asthma, hypertension, CHF, chronic pain, anxiety, depression, allergic rhinitis, constipation, GERD, insomnia. ALLERGIES: IODINE, MILK. FAMILY HISTORY: Ovarian cancer. SOCIAL HISTORY: She has been for 36 years. She does not drink, smoke or take drugs. MEDICATIONS: Reviewed. She is on quite a few including melatonin, vitamins, dexamethasone, Pepcid, ondansetron, senna, MiraLax, Flonase, guaifenesin, calcium, Ativan, sertraline, oxycodone, fentanyl, Coreg, clonidine, and albuterol. REVIEW OF SYSTEMS: GENERAL: No history of weight change, weakness or fevers. SKIN: No bruising, hair changes or rashes. EYES: No blurred, double or loss of vision. NOSE AND THROAT: No history of nosebleeds, hoarseness or sore throat. HEART: No history of palpitations, chest pain or shortness of breath on exertion. LUNGS: Denies cough, hemoptysis, wheezing or shortness of breath. GASTROINTESTINAL: She complains of abdominal distention (she did have a paracentesis within the past day or so). GENITOURINARY: No history of frequency, urgency, hesitancy or nocturia. NEUROLOGIC: Denies history of numbness, tingling, tremor or weakness. PSYCHIATRIC: No history of panic, anxiety or depression. ENDOCRINE: No history of heat or cold intolerance, polyuria or polydipsia. EXTREMITIES: Denies muscle weakness, joint pain, pain on walking or stiffness. PHYSICAL EXAMINATION: VITAL SIGNS: Temperature afebrile, pulse 90, respirations 18, blood pressure 113/90. GENERAL: She is alert, cooperative. Her is present. He seems to be good support for her. HEART: Normal S1, S2. LUNGS: Diminished. ABDOMEN: Very distended and firm. There is ascites. EXTREMITIES: 1+ edema. SKIN: No rashes. It is very pale. ENDOCRINE: No thyromegaly. LYMPHATICS: No cervical nodes. HEMATOPOIETIC: No bruising. PSYCHIATRIC: She is depressed. CHEST: She does have a PowerPort and there is also a tunneled catheter on the right for dialysis. LABORATORY DATA: White count 15, hemoglobin 8, platelets 383. Electrolytes: Sodium 136, potassium 5.6, chloride 94, bicarbonate 31, BUN 131, creatinine 8.5, glucose 93, alkaline phosphatase 142, albumin 2.2. ASSESSMENT AND PLAN: Failed dialysis catheter, hyperkalemia, acute on chronic renal failure, leukocytosis, anemia, and probable failure to thrive and ascites. The patient has been admitted. We have consulted Interventional Radiology and Nephrology, also consult GI and Dr. Linder, home medications, frequent labs, PT, OT, she wants to be full code for now, p.r.n. fentanyl. PROGNOSIS: Long-term is guarded. ROGERIO MONSALVE DO DR: YUNIOR/spencer JOB#: [id number] / [id number]
[2018-03-06] MEDS ORDERED: DIALYSIS PATIENT. MC PRN ×2 (15:00)
[2018-03-06] MEDS: DARBEPOETIN ALFA 60 MCG/0.3 ML DISP.SYRIN. SQ SCH (20:52)
[2018-03-06] MEDS: oxyCODONE IR 5 MG TABLET PO PRN (20:56)
[2018-03-06] MEDS: POLYETHYLENE GLYCOL 3350 17 GM PACKET. PO SCH (20:57)
[2018-03-06] MEDS ORDERED: fentaNYL 50MCG/HR PATCH 1 PATCH PATCH.TD72 TD SCH (21:00)
[2018-03-06] MEDS ORDERED: FAMOTIDINE 20 MG TABLET. PO SCH (21:00)
[2018-03-06] MEDS ORDERED: NON FORMULARY ITEM (Melatonin 1 TAB) PO SCH (21:00)
[2018-03-06] MEDS: fentaNYL 50MCG/HR PATCH 1 PATCH PATCH.TD72 TD SCH (21:08)
[2018-03-07 03:00] VITALS: BP 153/94
[2018-03-07] MEDS: PROCHLORPERAZINE 10 MG/2 ML VIAL. IV PRN (03:05)
[2018-03-07 05:30] LABS: ALBUMIN 1.8 g/dL (3.4-5.0); CALCIUM 8.9 mg/dL (8.5-10.1); CREATININE 5.1 mg/dL (0.6-1.0); GFR 8.7; PHOSPHORUS 4.1 mg/dL (2.6-4.7); POTASSIUM 4.5 mmol/L (3.5-5.1)
[2018-03-07 07:00] VITALS: BP 131/88
[2018-03-07] MEDS ORDERED: IV NORMAL SALINE 1000ML BAG 1,000 ML IV PRN ×2 (07:51)
[2018-03-07] MEDS ORDERED: ALBUMIN HUMAN 25% 200 ML IV PRN (08:00)
[2018-03-07] MEDS ORDERED: DIALYSIS PATIENT. MC PRN ×2 (08:00)
[2018-03-07] MEDS: CALCIUM ACETATE 667 MG CAPSULE PO SCH ×3 (08:00→17:00)
--- NOTE | 2018-03-07 08:13 | RAD ---
CLINICAL HISTORY: Abdominal dimension COMPARISON: None available. TECHNIQUE: Ultrasound of the upper abdomen was performed. FINDINGS: Note the exam is somewhat limited given significant overlying bowel gas limiting sonographic penetration. The liver measures 20.3 cm in length in the right mid clavicular line. Mild nodularity of the hepatic margin. There are no focal liver lesions. Flow is identified in the hepatic veins and portal veins. The gallbladder is normal in appearance without evidence for cholelithiasis. There is no wall thickening or pericholecystic fluid. There is no pain with direct transducer pressure over the gallbladder. The common bile duct measures 0.5 cm. The spleen is not well visualized, obscured by associated bowel gas. The head of the pancreas are unremarkable. The remainder is obscured by intestinal gas.. The right kidney measures 9.5 cm in bipolar length. Increased echogenicity of the right kidney may be seen with medical renal disease. No hydronephrosis. Left kidney was obscured by overlying bowel gas. IVC is not well delineated, possibly partially decompressed and obscured by overlying bowel gas. Aorta is obscured by overlying gas. Ascites is seen predominantly in lower abdomen. IMPRESSION: 1. The IVC is not well visualized and possibly collapsed in nature at the level of the hepatic veins. The remainder the IVC is not seen by ultrasound. Of note, evaluation is limited from poor sonographic window and overlying bowel gas. 2. The liver is borderline/mildly nodular in contour. This may be seen with cirrhosis although may also be physiologic for this patient. 3. Right kidney is echogenic, possibly from medical renal disease. Electronically signed by: José Ann MD (03/07/2018 8:09 AM) [facility]
[2018-03-07] MEDS: FLUTICASONE 50MCG/NASAL SPRAY 16GM BOTTLE. NS SCH (09:00)
--- NOTE | 2018-03-07 09:00 | PDOC ---
Dialysis Progress Note Dialysis Note Dialysis Note Seen on Hemodialysis, tolerating treatment Okay so far. Dialysis catheter seems to be working okay at this time. Patient complaints of persistent nausea and some vomiting Vitals on Hemodialysis: 125/76 114 afeb General Appearance: ch Ill Awake: Alert Oriented x 3 Neck: No JVD or JVP Chest: CTA Jason Heart: S1 S2 Abdomen - Soft NTND Extremities - + Edema ESRD: Dialysis as below F 180 NR 3.5 Hrs 3 K 2.5 Ca 140 Na 35 HC03 Qb 350 + Qd 500+ Heparin 0 Units Uf 0 Kgs or to dry weight as tolerated May give 25-50 gms of 25% Albumin if needed to maintain Hemodynamic stability Treatment plan reviewed and discussed with director china Vitals Vital Signs Vital Signs Date Time Temp Pulse Resp B/P (MAP) Pulse Ox O2 Delivery O2 Flow Rate FiO2 03/07/18 07:00 97.7 121 20 131/88 (102) 93 2L 97.7 03/07/18 02:33 2.0 Labs Last Labs Laboratory Tests Test 03/05/18 20:10 03/06/18 07:35 03/06/18 16:25 03/07/18 04:56 White Blood Count 15.1 x10^3/uL (4.0-11.0) Red Blood Count 2.72 x10^6/uL (3.50-5.40) Hemoglobin 7.9 g/dL (12.0-15.5) 7.2 g/dL (12.0-15.5) Hematocrit 24.8 % (36.0-47.0) Mean Corpuscular Volume 91 fL (79-100) Mean Corpuscular Hemoglobin 29 pg (25-35) Mean Corpuscular Hemoglobin Concent 32 g/dL (31-37) Red Cell Distribution Width 19.5 % (11.5-14.5) Platelet Count 383 x10^3/uL (140-400) Neutrophils (%) (Auto) 90 % (31-73) Lymphocytes (%) (Auto) 4 % (24-48) Monocytes (%) (Auto) 6 % (0-9) Eosinophils (%) (Auto) 0 % (0-3) Basophils (%) (Auto) 0 % (0-3) Neutrophils # (Auto) 13.5 x10^3uL (1.8-7.7) Lymphocytes # (Auto) 0.5 x10^3/uL (1.0-4.8) Monocytes # (Auto) 1.0 x10^3/uL (0.0-1.1) Eosinophils # (Auto) 0.1 x10^3/uL (0.0-0.7) Basophils # (Auto) 0.0 x10^3/uL (0.0-0.2) Segmented Neutrophils % 91 % (35-66) Band Neutrophils % 4 % (0-9) Lymphocytes % 2 % (24-48) Monocytes % 3 % (0-10) Nucleated Red Blood Cells 1 Toxic Granulation Slight Platelet Estimate Adequate (ADEQUATE) Giant Platelets Occ Polychromasia Slight Hypochromasia Slight Poikilocytosis Slight Basophilic Stippling Present Anisocytosis Slight Spherocytes Occ Helmet Cells Occ Sodium Level 136 mmol/L (136-145) 140 mmol/L (136-145) Potassium Level 5.6 mmol/L (3.5-5.1) 4.5 mmol/L (3.5-5.1) Chloride Level 94 mmol/L (98-107) 98 mmol/L (98-107) Carbon Dioxide Level 31 mmol/L (21-32) 30 mmol/L (21-32) Anion Gap 11 (6-14) 12 (6-14) Blood Urea Nitrogen 131 mg/dL (7-20) 66 mg/dL (7-20) Creatinine 8.5 mg/dL (0.6-1.0) 5.1 mg/dL (0.6-1.0) Estimated GFR (Cockcroft-Gault) 4.8 8.7 BUN/Creatinine Ratio 15 (6-20) Glucose Level 93 mg/dL (70-99) 120 mg/dL (70-99) Calcium Level 9.9 mg/dL (8.5-10.1) 8.9 mg/dL (8.5-10.1) Total Bilirubin 0.3 mg/dL (0.2-1.0) Aspartate Amino Transf (AST/SGOT) 47 U/L (15-37) Alanine Aminotransferase (ALT/SGPT) 16 U/L (14-59) Alkaline Phosphatase 142 U/L (46-116) Total Protein 6.7 g/dL (6.4-8.2) Albumin 2.2 g/dL (3.4-5.0) 1.8 g/dL (3.4-5.0) Albumin/Globulin Ratio 0.5 (1.0-1.7) Glucose (Fingerstick) 94 mg/dL (70-99) Hepatitis B Surface Antigen Nonreactive (Nonreactive) Hepatitis B Surface Antibody Nonreactive Phosphorus Level 4.1 mg/dL (2.6-4.7) Magnesium Level 2.0 mg/dL (1.8-2.4) Laboratory Tests Test 03/06/18 16:25 03/07/18 04:56 Hepatitis B Surface Antigen Nonreactive (Nonreactive) Hepatitis B Surface Antibody Nonreactive Hemoglobin 7.2 g/dL (12.0-15.5) Sodium Level 140 mmol/L (136-145) Potassium Level 4.5 mmol/L (3.5-5.1) Chloride Level 98 mmol/L (98-107) Carbon Dioxide Level 30 mmol/L (21-32) Anion Gap 12 (6-14) Blood Urea Nitrogen 66 mg/dL (7-20) Creatinine 5.1 mg/dL (0.6-1.0) Estimated GFR (Cockcroft-Gault) 8.7 Glucose Level 120 mg/dL (70-99) Calcium Level 8.9 mg/dL (8.5-10.1) Phosphorus Level 4.1 mg/dL (2.6-4.7) Magnesium Level 2.0 mg/dL (1.8-2.4) Albumin 1.8 g/dL (3.4-5.0) Assessment Assessment Problems Medical Problems: (1) Dialysis catheter clot or failure Status: Acute (2) Serum potassium elevated Status: Acute Plan Plan of Care Problems Medical Problems: (1) Dialysis catheter clot or failure Status: Acute (2) Serum potassium elevated Status: Acute JIGAR OLIVER MD Mar 07, 2018 09:00
--- NOTE | 2018-03-07 09:24 | PDOC2 ---
CONSULT Date of Consult Date of Consult Reason for consultation: Ovarian cancer Consult: Hematology oncology, Dr. 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 Past medical history: Avastin-induced thrombotic microangiopathy Assessment End-stage renal disease on dialysis Allergic rhinitis Constipation History of subdural hematoma reported Ovarian cancer metastatic NSTEMI GERD Hypertension Hyperlipidemia Depression Past surgical history: Total hysterectomy with lymph node dissection Appendectomy Tonsillectomy Hemodialysis catheter with replacement multiple times Port placement Paracentesis Allergies: Taxol, Avastin, milk, IV contrast Medications: See attached list Social history: , [employer] [place], quit tobacco in 2011, autistic son, active in [employer] in the past Family history: Lung and prostate cancer Review of systems: Weight loss, nausea, makes minimal urine, constipation, well controlled at the moment, no active bleeding, abdominal pain, otherwise 10 point review of systems negative Physical exam: Vitals reviewed Gen.: thin female resting in HD bed, in no acute distress HEENT: mucous membranes moist, head normocephalic atraumatic Neck: Supple, no lymphadenopathy, neck line on L, port on R Lymph nodes: No palpable lymphadenopathy neck Lungs: Breathing comfortably on 3L NCO2, no evidence of respiratory distress Heart: Regular rhythm, tachycardia Abdomen: firm, sl TTP, distended, no rebound Extremities: No cyanosis, does have BLE edema Skin: No obvious rashes or skin breakdown Neuro: Alert and oriented �3 Psych: Normal mood and affect Lab reviewed: White count 15.1, hemoglobin 7.2, platelets 383, MCV 91 Creatinine 5.1 Rads reviewed: Chest x-ray with trace bilateral pleural effusions, mild bibasilar airspace disease Case discussed with: Patient, hemodialysis nurse, records reviewed in [facility] and [facility] including labs and radiology, please see note for summary details. Assessment and Plan: She is a 57-year-old female with metastatic ovarian cancer , not a candidate for further anticancer therapy due to functional status, she stays at [facility], and end-stage renal disease on dialysis. She has been followed by palliative care and gynecology oncology at and is not interested in seeing palliative care here or interested in getting hospice involved at this point in time either even though it would be certainly very reasonable. She is on dexamethasone, 16 mg daily, she tells me was to see if it would improve the ascites, she tells me he has had no benefit, we can consider weaning this. Has had paracentesis of 4 L in the past, does not feel like she needs paracentesis at the moment. She is on Aranesp for anemia and is pending lower extremity ultrasounds due to edema with low albumin and getting some albumin replacement today as well. Anemia: Continue Aranesp, will check ferritin and iron panel, transfuse if <Hb of 7 BLE edema: Pending ultrasounds End-stage renal disease: On dialysis Ovarian cancer: Consider pall care consultation if she were ever amenable to this, with follow-up with pall care and gynecology oncology at as needed as outpatient, will wean dexamethasone slowly, go from 16 mg daily to 12 mg daily, this can continue to be weaned over time as long as she is having no benefit from it Thank you kindly for this consultation and please do not hesitate to call with any further questions. DATE: 03/07/18 TIME: 09:12 Social History Quit Lives: with Family Domestic Violence: Neg Current Problem List Problem List Problems Medical Problems: (1) Dialysis catheter clot or failure Status: Acute (2) Serum potassium elevated Status: Acute Current Medications Current Medications Current Medications Ondansetron HCl (Zofran) 4 mg PRN Q8HRS PRN IV NAUSEA/VOMITING Last administered on 03/06/18at 05:34; Start 03/05/18 at 22:00; Stop 03/06/18 at 21:59 ; Status DC Fentanyl Citrate (Fentanyl 2ml Vial) 50 mcg PRN Q1HR PRN IV PAIN Last administered on 03/06/18at 05:35; Start 03/05/18 at 22:00; Stop 03/06/18 at 21:59 ; Status DC Calcium Gluconate (Calcium Gluconate) 1,000 mg 1X ONCE IVP Last administered on 03/05/18at 23:23; Start 03/05/18 at 22:15; Stop 03/05/18 at 22:16; Status DC Sodium Bicarbonate (Sodium Bicarb Adult 8.4% Syr) 50 meq 1X ONCE IV Last administered on 03/05/18at 23:23; Start 03/05/18 at 22:15; Stop 03/05/18 at 22 :16; Status DC Sodium Polystyrene Sulfonate (Kayexalate) 30 gm 1X ONCE PO Last administered on 03/05/18at 23:23; Start 03/05/18 at 22:15; Stop 03/05/18 at 22:16; Status DC Ondansetron HCl (Zofran) 4 mg 1X ONCE IV Last administered on 03/05/18at 22:55 ; Start 03/05/18 at 22:45; Stop 03/05/18 at 22:55; Status DC Prochlorperazine Edisylate (Compazine) 10 mg PRN Q6HRS PRN IM NAUSEA/VOMITING; Start 03/06/18 at 06:15; Stop 03/06/18 at 12:32; Status DC Oxycodone HCl (Roxicodone) 10 mg PRN Q4HRS PRN PO PAIN Last administered on 03/06at 20:56; Start 03/06/18 at 06:15 Oxycodone HCl (Roxicodone) 20 mg PRN Q4HRS PRN PO PAIN; Start 03/06/18 at 06:15 Lidocaine/ Epinephrine (LIDOCAINE 1%-EPI 1:100,000 Multi-Dose) 20 ml STK-MED ONCE .ROUTE ; Start 03/06/18 at 09:11; Stop 03/06/18 at 09:12; Status DC Cefazolin Sodium 50 ml @ As Directed STK-MED ONCE IV ; Start 03/06/18 at 09:34; Stop 03/06/18 at 09:35; Status DC Midazolam HCl (Versed) 2 mg STK-MED ONCE .ROUTE ; Start 03/06/18 at 09:34; Stop 03/06/18 at 09:35; Status DC Fentanyl Citrate (Fentanyl 2ml Vial) 100 mcg STK-MED ONCE .ROUTE ; Start at 09:34; Stop 03/06/18 at 09:35; Status DC Heparin Sodium (Porcine) (Heparin Sodium) 10,000 unit STK-MED ONCE .ROUTE ; Start 03/06/18 at 09:44; Stop 03/06/18 at 09:46; Status DC Midazolam HCl (Versed) 2 mg 1X ONCE IV Last administered on 03/06/18at 10:11; Start 03/06/18 at 10:30; Stop 03/06/18 at 10:35; Status DC Fentanyl Citrate (Fentanyl 2ml Vial) 100 mcg 1X ONCE IV Last administered on at 10:11; Start 03/06/18 at 10:30; Stop 03/06/18 at 10:35; Status DC Lidocaine/ Epinephrine (LIDOCAINE 1%-EPI 1:100,000 Multi-Dose) 20 ml 1X ONCE IJ Last administered on 03/06/18at 10:09; Start 03/06/18 at 10:30; Stop 03/06/18 at 10:35; Status DC Cefazolin Sodium 50 ml @ 100 mls/hr 1X ONCE IV Last administered on 03/06/18at 10:11; Start 03/06/18 at 10:30; Stop 03/06/18 at 10:59; Status DC Heparin Sodium (Porcine) (Heparin Sodium) 4,200 unit 1X ONCE INT CAT Last administered on 03/06/18at 10:11; Start 03/06/18 at 10:30; Stop 03/06/18 at 10:35; Status DC Clonidine HCl (Catapres) 0.1 mg BID PO Last administered on 03/06/18at 12:15; Start 03/06/18 at 12:00 Dexamethasone (Decadron) 16 mg DAILY PO Last administered on 03/06/18at 12:15; Start 03/06/18 at 12:00 Fentanyl (Duragesic 50mcg/ Hr Patch) 1 patch Q3DAYS TD ; Start 03/06/18 at 21:00 ; Stop 03/06/18 at 21:05; Status DC Lorazepam (Ativan) 0.5 mg PRN Q12HRS PRN PO ANXIETY / AGITATION; Start 03/06/18 at 11:30 Ondansetron HCl (Zofran Odt) 8 mg PRN Q8HRS PRN PO NAUSEA/VOMITING; Start at 11:30 Calcium Acetate (Phoslo) 667 mg TIDWMEALS PO Last administered on 03/06/18 18: 10; Start 03/06/18 at 12:00 Carvedilol (Coreg) 6.25 mg BIDWMEALS PO Last administered on 03/06/18 18:11; Start 03/06/18 at 12:00 Famotidine (Pepcid) 20 mg QHS PO Last administered on 03/06/18 20:51; Start 03/06/18 at 21:00 Fluticasone Propionate (Flonase) 1 spray DAILY NS Last administered on 12:16; Start 03/06/18 at 12:00 Guaifenesin/ Codeine Phosphate (Robitussin Ac) 10 ml PRN Q4HRS PRN PO COUGH; Start 03/06/18 at 11:45 Non-Formulary Medication (Melatonin ) 1 tab QHS PO ; Start 03/06/18 at 21:00; Status UNV Multivitamins (Thera M Plus) 1 tab DAILY PO Last administered on 03/06/18 12:15 ; Start 03/06/18 at 12:00 Polyethylene Glycol (miraLAX PACKET) 17 gm QHS PO Last administered on 20:57; Start 03/06/18 at 21:00 Sennosides (Senna) 8.6 mg DAILY PO Last administered on 03/06/18 12:15; Start 03/06/18 at 12:00 Sertraline HCl (Zoloft) 150 mg DAILY PO Last administered on 03/06/18 12:14; Start 03/06/18 at 12:00 Prochlorperazine Edisylate (Compazine) 10 mg PRN Q6HRS PRN IV NAUSEA/VOMITING Last administered on 03/07/18 03:05; Start 03/06/18 at 12:45 Darbepoetin Taran (Aranesp) 60 mcg WEEKLYHS SQ Last administered on 03/06/18 20: 52; Start 03/06/18 at 21:00 Magnesium Sulfate 50 ml @ 25 mls/hr PRN DAILY PRN IV for Mag < 1.7 on am labs; Start 03/06/18 at 13:45 Sodium Chloride 1,000 ml @ 1,000 mls/hr Q1H PRN IV hypotension; Start 03/06/18 at 12:30; Stop 03/06/18 at 18:29; Status DC Sodium Chloride 1,000 ml @ 400 mls/hr Q2H30M PRN IV PATENCY; Start 03/06/18 at 12:30; Stop 03/06/18 at 20:00; Status DC Info (PHARMACY MONITORING -- do not chart) 1 each PRN DAILY PRN MC SEE COMMENTS ; Start 03/06/18 at 15:00; Status UNV Info (PHARMACY MONITORING -- do not chart) 1 each PRN DAILY PRN MC SEE COMMENTS ; Start 03/06/18 at 15:00 Fentanyl (Duragesic 50mcg/ Hr Patch) 1 patch Q72H TD Last administered on at 21:08; Start 03/06/18 at 21:30 Sodium Chloride 1,000 ml @ 1,000 mls/hr Q1H PRN IV hypotension; Start 03/07/18 at 07:51; Stop 03/07/18 at 13:50 Albumin Human 200 ml @ 200 mls/hr 1X PRN PRN IV Hypotension; Start 03/07/18 at 08:00; Stop 03/07/18 at 13:59 Sodium Chloride 1,000 ml @ 400 mls/hr Q2H30M PRN IV PATENCY; Start 03/07/18 at 07:51; Stop 03/07/18 at 19:50 Info (PHARMACY MONITORING -- do not chart) 1 each PRN DAILY PRN MC SEE COMMENTS ; Start 03/07/18 at 08:00 Info (PHARMACY MONITORING -- do not chart) 1 each PRN DAILY PRN MC SEE COMMENTS ; Start 03/07/18 at 08:00; Status UNV Active Scripts Active Reported Zoloft (Sertraline Hcl) 100 Mg Tablet 150 Mg PO DAILY Senna Lax (Sennosides) 8.6 Mg Tablet 8.6 Mg PO DAILY Proair Hfa (Albuterol Sulfate) 8.5 Gm Hfa.aer.ad 2 Puff INH PRN Q6HRS PRN Miralax (Polyethylene Glycol 3350) 17 Gm Powd.pack 1 Pkt PO HS Oxycodone Hcl 5 Mg Capsule 20 Mg PO PRN Q4HRS PRN Oxycodone Hcl 5 Mg Capsule 10 Mg PO PRN Q4HRS PRN Ondansetron Odt (Ondansetron) 4 Mg Tab.rapdis 8 Mg PO PRN Q8HRS PRN One-Daily Multi-Vitamin (Multivitamin) 1 Each Tablet 1 Each PO HS Melatonin 3 Mg Tablet 1 Tab PO QHS Ativan (Lorazepam) 0.5 Mg Tablet 0.5 Mg PO PRN Q12HRS PRN Guaifenesin-Codeine Syrup (Guaifenesin/Codeine Phosphate) 118 Ml Liquid 10 Ml PO PRN Q4HRS PRN Flonase Allergy Relief (Fluticasone Propionate) 9.9 Ml [place].susp 1 Sprays NS DAILY FENTANYL 50mcg/hr (Fentanyl) 1 Each Patch.td72 1 Patch TP Q3DAYS Famotidine 40 Mg Tablet 20 Mg PO HS Dexamethasone 4 Mg Tablet 4 Tab PO DAILY Clonidine Hcl 0.1 Mg Tablet 0.1 Mg PO BID Carvedilol 25 Mg Tablet 6.25 Mg PO BIDWMEALS Calcium Acetate 667 Mg Tablet 667 Mg PO TIDWMEALS Allergies Allergies: Coded Allergies: Iodinated Contrast- Oral and IV Dye (Verified Allergy, Intermediate, ) milk (Verified Allergy, Intermediate, 03/06/18) paclitaxel (Verified Allergy, Intermediate, 03/06/18) Vitals VITALS Vital Signs Date Time Temp Pulse Resp B/P (MAP) Pulse Ox O2 Delivery O2 Flow Rate FiO2 03/07/18 07:00 97.7 121 20 131/88 (102) 93 2L 97.7 03/07/18 02:33 2.0 Labs Labs Laboratory Tests Test 03/05/18 20:10 03/06/18 07:35 03/06/18 16:25 03/07/18 04:56 White Blood Count 15.1 x10^3/uL (4.0-11.0) Red Blood Count 2.72 x10^6/uL (3.50-5.40) Hemoglobin 7.9 g/dL (12.0-15.5) 7.2 g/dL (12.0-15.5) Hematocrit 24.8 % (36.0-47.0) Mean Corpuscular Volume 91 fL (79-100) Mean Corpuscular Hemoglobin 29 pg (25-35) Mean Corpuscular Hemoglobin Concent 32 g/dL (31-37) Red Cell Distribution Width 19.5 % (11.5-14.5) Platelet Count 383 x10^3/uL (140-400) Neutrophils (%) (Auto) 90 % (31-73) Lymphocytes (%) (Auto) 4 % (24-48) Monocytes (%) (Auto) 6 % (0-9) Eosinophils (%) (Auto) 0 % (0-3) Basophils (%) (Auto) 0 % (0-3) Neutrophils # (Auto) 13.5 x10^3uL (1.8-7.7) Lymphocytes # (Auto) 0.5 x10^3/uL (1.0-4.8) Monocytes # (Auto) 1.0 x10^3/uL (0.0-1.1) Eosinophils # (Auto) 0.1 x10^3/uL (0.0-0.7) Basophils # (Auto) 0.0 x10^3/uL (0.0-0.2) Segmented Neutrophils % 91 % (35-66) Band Neutrophils % 4 % (0-9) Lymphocytes % 2 % (24-48) Monocytes % 3 % (0-10) Nucleated Red Blood Cells 1 Toxic Granulation Slight Platelet Estimate Adequate (ADEQUATE) Giant Platelets Occ Polychromasia Slight Hypochromasia Slight Poikilocytosis Slight Basophilic Stippling Present Anisocytosis Slight Spherocytes Occ Helmet Cells Occ Sodium Level 136 mmol/L (136-145) 140 mmol/L (136-145) Potassium Level 5.6 mmol/L (3.5-5.1) 4.5 mmol/L (3.5-5.1) Chloride Level 94 mmol/L (98-107) 98 mmol/L (98-107) Carbon Dioxide Level 31 mmol/L (21-32) 30 mmol/L (21-32) Anion Gap 11 (6-14) 12 (6-14) Blood Urea Nitrogen 131 mg/dL (7-20) 66 mg/dL (7-20) Creatinine 8.5 mg/dL (0.6-1.0) 5.1 mg/dL (0.6-1.0) Estimated GFR (Cockcroft-Gault) 4.8 8.7 BUN/Creatinine Ratio 15 (6-20) Glucose Level 93 mg/dL (70-99) 120 mg/dL (70-99) Calcium Level 9.9 mg/dL (8.5-10.1) 8.9 mg/dL (8.5-10.1) Total Bilirubin 0.3 mg/dL (0.2-1.0) Aspartate Amino Transf (AST/SGOT) 47 U/L (15-37) Alanine Aminotransferase (ALT/SGPT) 16 U/L (14-59) Alkaline Phosphatase 142 U/L (46-116) Total Protein 6.7 g/dL (6.4-8.2) Albumin 2.2 g/dL (3.4-5.0) 1.8 g/dL (3.4-5.0) Albumin/Globulin Ratio 0.5 (1.0-1.7) Glucose (Fingerstick) 94 mg/dL (70-99) Hepatitis B Surface Antigen Nonreactive (Nonreactive) Hepatitis B Surface Antibody Nonreactive Phosphorus Level 4.1 mg/dL (2.6-4.7) Magnesium Level 2.0 mg/dL (1.8-2.4) Laboratory Tests Test 03/06/18 16:25 03/07/18 04:56 Hepatitis B Surface Antigen Nonreactive (Nonreactive) Hepatitis B Surface Antibody Nonreactive Hemoglobin 7.2 g/dL (12.0-15.5) Sodium Level 140 mmol/L (136-145) Potassium Level 4.5 mmol/L (3.5-5.1) Chloride Level 98 mmol/L (98-107) Carbon Dioxide Level 30 mmol/L (21-32) Anion Gap 12 (6-14) Blood Urea Nitrogen 66 mg/dL (7-20) Creatinine 5.1 mg/dL (0.6-1.0) Estimated GFR (Cockcroft-Gault) 8.7 Glucose Level 120 mg/dL (70-99) Calcium Level 8.9 mg/dL (8.5-10.1) Phosphorus Level 4.1 mg/dL (2.6-4.7) Magnesium Level 2.0 mg/dL (1.8-2.4) Albumin 1.8 g/dL (3.4-5.0) ROSALIO PATEL MD Mar 07, 2018 09:24
[2018-03-07] MEDS ORDERED: DEXAMETHASONE 4 MG TABLET PO SCH (09:30)
--- NOTE | 2018-03-07 12:28 | PDOC2 ---
GI CONSULT Reason For Consult: N/v, elevated LFTs, ascites HPI: HPI: 57 y/o female from w/ metastatic ovarian cancer and ESRD on HD, here w/ need for HD cath replacement. GI-duenas, she reports n/v, fullness, and decreased appetite - she says for a couple days, but then thinks this has been present since last week. This morning she vomited foor from last night. H/o GERD not well controlled w/ Pepcid QD. No dysphagia or odynophagia. No hematemesis. Apparently h/o constipation though she denies this (or diarrhea) currently. No hematochezia or melena. Thinks EGD and colonoscopy done 5-6 years ago (?here at [facility]) - recalls no significant findings. Denies GB, liver, or pancreas history - though does have h/o ascites and did have paracentesis last Monday (?4L removed - "across the street" - no records here), on steroids for this (w/ plans to wean per heme/onc). 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) hysterectomy, appendectomy, tonsillectomy, port placement, paracentesis FH: Family History: Cancer (lung, prostate) Social History: Smoke: Quit ALCOHOL: none Drugs: None ROS: GEN: Denies fevers, chills, sweats HEENT: Denies blurred vision, sore throat CV: Denies chest pain RESP: Denies shortness of air, cough GI: Per HPI : Denies hematuria, dysuria ENDO: +weight changes NEURO: Denies confusion, dizziness MSK: +weakness SKIN: Denies jaundice, pruritus Vitals: Vitals: Vital Signs Date Time Temp Pulse Resp B/P (MAP) Pulse Ox O2 Delivery O2 Flow Rate FiO2 03/07/18 08:00 Nasal Cannula 2.0 03/07/18 07:00 97.7 121 20 131/88 (102) 93 97.7 Labs: Labs: Laboratory Tests Test 03/06/18 16:25 03/07/18 04:56 Hepatitis B Surface Antigen Nonreactive (Nonreactive) Hepatitis B Surface Antibody Nonreactive Hemoglobin 7.2 g/dL (12.0-15.5) Sodium Level 140 mmol/L (136-145) Potassium Level 4.5 mmol/L (3.5-5.1) Chloride Level 98 mmol/L (98-107) Carbon Dioxide Level 30 mmol/L (21-32) Anion Gap 12 (6-14) Blood Urea Nitrogen 66 mg/dL (7-20) Creatinine 5.1 mg/dL (0.6-1.0) Estimated GFR (Cockcroft-Gault) 8.7 Glucose Level 120 mg/dL (70-99) Calcium Level 8.9 mg/dL (8.5-10.1) Phosphorus Level 4.1 mg/dL (2.6-4.7) Magnesium Level 2.0 mg/dL (1.8-2.4) Iron Level 17 ug/dL (50-170) Total Iron Binding Capacity 113 ug/dL (250-450) Iron Saturation 15 % (15-34) Ferritin 967 ng/mL (8-252) Albumin 1.8 g/dL (3.4-5.0) Allergies: Coded Allergies: Iodinated Contrast- Oral and IV Dye (Verified Allergy, Intermediate, ) milk (Verified Allergy, Intermediate, 03/06/18) paclitaxel (Verified Allergy, Intermediate, 03/06/18) Medications: Current Medications Medications (Trade) Dose Ordered Sig/Nazia Route PRN Reason Start Time Stop Time Status Last Admin Dose Admin Famotidine (Pepcid) 20 mg QHS PO 03/06/18 21:00 03/06/18 20:51 Polyethylene Glycol (miraLAX PACKET) 17 gm QHS PO 03/06/18 21:00 03/06/18 20:57 Prochlorperazine Edisylate (Compazine) 10 mg PRN Q6HRS PRN IV NAUSEA/VOMITING 03/06/18 12:45 03/07/18 03:05 Darbepoetin Taran (Aranesp) 60 mcg WEEKLYHS SQ 03/06/18 21:00 03/06/18 20:52 Fentanyl (Duragesic 50mcg/ Hr Patch) 1 patch Q72H TD 03/06/18 21:30 03/06/18 21:08 Imaging: Imaging: CXR IMPRESSION: Trace bilateral pleural effusions. Mild bibasilar airspace disease. Tunneled HD cath removal/placement Abd US FINDINGS: The liver measures 20.3 cm in length in the right mid clavicular line. Mild nodularity of the hepatic margin. There are no focal liver lesions. Flow is identified in the hepatic veins and portal veins. The gallbladder is normal in appearance without evidence for cholelithiasis. There is no wall thickening or pericholecystic fluid. There is no pain with direct transducer pressure over the gallbladder. The common bile duct measures 0.5 cm. The spleen is not well visualized, obscured by associated bowel gas. The head of the pancreas are unremarkable. The remainder is obscured by intestinal gas. The right kidney measures 9.5 cm in bipolar length. Increased echogenicity of the right kidney may be seen with medical renal disease. No hydronephrosis. Left kidney was obscured by overlying bowel gas. IVC is not well delineated, possibly partially decompressed and obscured by overlying bowel gas. Aorta is obscured by overlying gas. Ascites is seen predominantly in lower abdomen. IMPRESSION: 1. The IVC is not well visualized and possibly collapsed in nature at the level of the hepatic veins. The remainder the IVC is not seen by ultrasound. Of note, evaluation is limited from poor sonographic window and overlying bowel gas. 2. The liver is borderline/mildly nodular in contour. This may be seen with cirrhosis although may also be physiologic for this patient. 3. Right kidney is echogenic, possibly from medical renal disease. LE US (pending) PE: GEN: NAD, ill, weak HEENT: Atraumatic, PERRL LUNGS: CTAB HEART: tachycardic ABD: BS+, round, tight, vague discomfort EXTREMITY: BLE edema SKIN: pale NEURO/PSYCH: A & O �3 A/P: A/P: Metastatic ovarian cancer ESRD on HD, cath replaced 03/06/18 - potassium, BUN, and Cr improving ACD N/v, early satiety, decreased appetite H/o ascites and paracentesis - mild elevation in AST and Alk Phos, on US: mild nodularity of hepatic margin and ascites in lower abdomen GERD - not completely controlled w/ Pepcid H/o constipation - controlled CRC screen - recalls colonoscopy 5-6 years ago -- Check KUB, consider CT A/P w/o contrast. Will ask for repeat paracentesis. Change from H2 rabia to PPI. Clears for now, adjust as indicated. Will review all w/ Dr. Murdock. CAROL GOMEZ Mar 07, 2018 12:28
[2018-03-07] MEDS: CARVEDILOL 6.25 MG TABLET. PO SCH ×2 (13:11→17:10)
[2018-03-07] MEDS: SENNOSIDES 8.6 MG TABLET PO SCH (13:11)
[2018-03-07] MEDS: SERTRALINE 50 MG TABLET. PO SCH (13:11)
[2018-03-07] MEDS: MULTIVITAMIN with MINERAL TABLET. PO SCH (13:12)
[2018-03-07] MEDS: DEXAMETHASONE 4 MG TABLET PO SCH (13:12)
[2018-03-07] MEDS: cloNIDine HCL 0.1 MG TABLET PO SCH ×2 (13:13→21:00)
--- NOTE | 2018-03-07 13:37 | PDOC ---
PROGRESS NOTES Chief Complaint Chief Complaint Hyperkalemia Ovarian Cancer End Stage Renal Disease, HD dependent Tachycardia History of Present Illness History of Present Illness PT seen and examined, spoke with nursing staff. Pt just back from HD when interviewed. Pt reports N/V. Observed CDI bandage. Pt was educated about potential Hospice options and would like to talk with palliative care. PT requests paracentesis for abdominal fluid. Vitals Vitals Vital Signs Date Time Temp Pulse Resp B/P (MAP) Pulse Ox O2 Delivery O2 Flow Rate FiO2 03/07/18 13:13 110 117/81 03/07/18 08:00 Nasal Cannula 2.0 03/07/18 07:00 97.7 20 93 97.7 Physical Exam General: mild distress Heart: Other (tachycardia at 119 bpm) Abdomen: Other (Marked Ascites, requests paracentesis) Labs LABS Laboratory Tests Test 03/06/18 16:25 03/07/18 04:56 Hepatitis B Surface Antigen Nonreactive (Nonreactive) Hepatitis B Surface Antibody Nonreactive Hemoglobin 7.2 g/dL (12.0-15.5) Sodium Level 140 mmol/L (136-145) Potassium Level 4.5 mmol/L (3.5-5.1) Chloride Level 98 mmol/L (98-107) Carbon Dioxide Level 30 mmol/L (21-32) Anion Gap 12 (6-14) Blood Urea Nitrogen 66 mg/dL (7-20) Creatinine 5.1 mg/dL (0.6-1.0) Estimated GFR (Cockcroft-Gault) 8.7 Glucose Level 120 mg/dL (70-99) Calcium Level 8.9 mg/dL (8.5-10.1) Phosphorus Level 4.1 mg/dL (2.6-4.7) Magnesium Level 2.0 mg/dL (1.8-2.4) Iron Level 17 ug/dL (50-170) Total Iron Binding Capacity 113 ug/dL (250-450) Iron Saturation 15 % (15-34) Ferritin 967 ng/mL (8-252) Albumin 1.8 g/dL (3.4-5.0) Review of Systems Review of Systems Denies CP Admits to abdominal pain Assessment and Plan Assessmemt and Plan Assessment: Hyperkalemia Ovarian Cancer End Stage Renal Disease, HD dependent Tachycardia Plan: Continue HD every other diet Wound residential meds Consult Palliative Care (Linda Sy) - considering hospice Consult Intervention Radiology (Yakelin) - please consider paracentesis Comment Review of Relevant I have reviewed the following items arden (where applicable) has been applied. Labs Laboratory Tests Test 03/05/18 20:10 03/06/18 07:35 03/06/18 16:25 03/07/18 04:56 White Blood Count 15.1 x10^3/uL (4.0-11.0) Red Blood Count 2.72 x10^6/uL (3.50-5.40) Hemoglobin 7.9 g/dL (12.0-15.5) 7.2 g/dL (12.0-15.5) Hematocrit 24.8 % (36.0-47.0) Mean Corpuscular Volume 91 fL (79-100) Mean Corpuscular Hemoglobin 29 pg (25-35) Mean Corpuscular Hemoglobin Concent 32 g/dL (31-37) Red Cell Distribution Width 19.5 % (11.5-14.5) Platelet Count 383 x10^3/uL (140-400) Neutrophils (%) (Auto) 90 % (31-73) Lymphocytes (%) (Auto) 4 % (24-48) Monocytes (%) (Auto) 6 % (0-9) Eosinophils (%) (Auto) 0 % (0-3) Basophils (%) (Auto) 0 % (0-3) Neutrophils # (Auto) 13.5 x10^3uL (1.8-7.7) Lymphocytes # (Auto) 0.5 x10^3/uL (1.0-4.8) Monocytes # (Auto) 1.0 x10^3/uL (0.0-1.1) Eosinophils # (Auto) 0.1 x10^3/uL (0.0-0.7) Basophils # (Auto) 0.0 x10^3/uL (0.0-0.2) Segmented Neutrophils % 91 % (35-66) Band Neutrophils % 4 % (0-9) Lymphocytes % 2 % (24-48) Monocytes % 3 % (0-10) Nucleated Red Blood Cells 1 Toxic Granulation Slight Platelet Estimate Adequate (ADEQUATE) Giant Platelets Occ Polychromasia Slight Hypochromasia Slight Poikilocytosis Slight Basophilic Stippling Present Anisocytosis Slight Spherocytes Occ Helmet Cells Occ Sodium Level 136 mmol/L (136-145) 140 mmol/L (136-145) Potassium Level 5.6 mmol/L (3.5-5.1) 4.5 mmol/L (3.5-5.1) Chloride Level 94 mmol/L (98-107) 98 mmol/L (98-107) Carbon Dioxide Level 31 mmol/L (21-32) 30 mmol/L (21-32) Anion Gap 11 (6-14) 12 (6-14) Blood Urea Nitrogen 131 mg/dL (7-20) 66 mg/dL (7-20) Creatinine 8.5 mg/dL (0.6-1.0) 5.1 mg/dL (0.6-1.0) Estimated GFR (Cockcroft-Gault) 4.8 8.7 BUN/Creatinine Ratio 15 (6-20) Glucose Level 93 mg/dL (70-99) 120 mg/dL (70-99) Calcium Level 9.9 mg/dL (8.5-10.1) 8.9 mg/dL (8.5-10.1) Total Bilirubin 0.3 mg/dL (0.2-1.0) Aspartate Amino Transf (AST/SGOT) 47 U/L (15-37) Alanine Aminotransferase (ALT/SGPT) 16 U/L (14-59) Alkaline Phosphatase 142 U/L (46-116) Total Protein 6.7 g/dL (6.4-8.2) Albumin 2.2 g/dL (3.4-5.0) 1.8 g/dL (3.4-5.0) Albumin/Globulin Ratio 0.5 (1.0-1.7) Glucose (Fingerstick) 94 mg/dL (70-99) Hepatitis B Surface Antigen Nonreactive (Nonreactive) Hepatitis B Surface Antibody Nonreactive Phosphorus Level 4.1 mg/dL (2.6-4.7) Magnesium Level 2.0 mg/dL (1.8-2.4) Iron Level 17 ug/dL (50-170) Total Iron Binding Capacity 113 ug/dL (250-450) Iron Saturation 15 % (15-34) Ferritin 967 ng/mL (8-252) Laboratory Tests Test 03/06/18 16:25 03/07/18 04:56 Hepatitis B Surface Antigen Nonreactive (Nonreactive) Hepatitis B Surface Antibody Nonreactive Hemoglobin 7.2 g/dL (12.0-15.5) Sodium Level 140 mmol/L (136-145) Potassium Level 4.5 mmol/L (3.5-5.1) Chloride Level 98 mmol/L (98-107) Carbon Dioxide Level 30 mmol/L (21-32) Anion Gap 12 (6-14) Blood Urea Nitrogen 66 mg/dL (7-20) Creatinine 5.1 mg/dL (0.6-1.0) Estimated GFR (Cockcroft-Gault) 8.7 Glucose Level 120 mg/dL (70-99) Calcium Level 8.9 mg/dL (8.5-10.1) Phosphorus Level 4.1 mg/dL (2.6-4.7) Magnesium Level 2.0 mg/dL (1.8-2.4) Iron Level 17 ug/dL (50-170) Total Iron Binding Capacity 113 ug/dL (250-450) Iron Saturation 15 % (15-34) Ferritin 967 ng/mL (8-252) Albumin 1.8 g/dL (3.4-5.0) Medications Current Medications Ondansetron HCl (Zofran) 4 mg PRN Q8HRS PRN IV NAUSEA/VOMITING Last administered on 03/06/18at 05:34; Start 03/05/18 at 22:00; Stop 03/06/18 at 21:59 ; Status DC Fentanyl Citrate (Fentanyl 2ml Vial) 50 mcg PRN Q1HR PRN IV PAIN Last administered on 03/06/18at 05:35; Start 03/05/18 at 22:00; Stop 03/06/18 at 21:59 ; Status DC Calcium Gluconate (Calcium Gluconate) 1,000 mg 1X ONCE IVP Last administered on 03/05/18at 23:23; Start 03/05/18 at 22:15; Stop 03/05/18 at 22:16; Status DC Sodium Bicarbonate (Sodium Bicarb Adult 8.4% Syr) 50 meq 1X ONCE IV Last administered on 03/05/18at 23:23; Start 03/05/18 at 22:15; Stop 03/05/18 at 22 :16; Status DC Sodium Polystyrene Sulfonate (Kayexalate) 30 gm 1X ONCE PO Last administered on 03/05/18at 23:23; Start 03/05/18 at 22:15; Stop 03/05/18 at 22:16; Status DC Ondansetron HCl (Zofran) 4 mg 1X ONCE IV Last administered on 03/05/18at 22:55 ; Start 03/05/18 at 22:45; Stop 03/05/18 at 22:55; Status DC Prochlorperazine Edisylate (Compazine) 10 mg PRN Q6HRS PRN IM NAUSEA/VOMITING; Start 03/06/18 at 06:15; Stop 03/06/18 at 12:32; Status DC Oxycodone HCl (Roxicodone) 10 mg PRN Q4HRS PRN PO PAIN Last administered on 03/06at 20:56; Start 03/06/18 at 06:15 Oxycodone HCl (Roxicodone) 20 mg PRN Q4HRS PRN PO PAIN; Start 03/06/18 at 06:15 Lidocaine/ Epinephrine (LIDOCAINE 1%-EPI 1:100,000 Multi-Dose) 20 ml STK-MED ONCE .ROUTE ; Start 03/06/18 at 09:11; Stop 03/06/18 at 09:12; Status DC Cefazolin Sodium 50 ml @ As Directed STK-MED ONCE IV ; Start 03/06/18 at 09:34; Stop 03/06/18 at 09:35; Status DC Midazolam HCl (Versed) 2 mg STK-MED ONCE .ROUTE ; Start 03/06/18 at 09:34; Stop 03/06/18 at 09:35; Status DC Fentanyl Citrate (Fentanyl 2ml Vial) 100 mcg STK-MED ONCE .ROUTE ; Start at 09:34; Stop 03/06/18 at 09:35; Status DC Heparin Sodium (Porcine) (Heparin Sodium) 10,000 unit STK-MED ONCE .ROUTE ; Start 03/06/18 at 09:44; Stop 03/06/18 at 09:46; Status DC Midazolam HCl (Versed) 2 mg 1X ONCE IV Last administered on 03/06/18at 10:11; Start 03/06/18 at 10:30; Stop 03/06/18 at 10:35; Status DC Fentanyl Citrate (Fentanyl 2ml Vial) 100 mcg 1X ONCE IV Last administered on 10:11; Start 03/06/18 at 10:30; Stop 03/06/18 at 10:35; Status DC Lidocaine/ Epinephrine (LIDOCAINE 1%-EPI 1:100,000 Multi-Dose) 20 ml 1X ONCE IJ Last administered on 03/06/18at 10:09; Start 03/06/18 at 10:30; Stop 03/06/18 at 10:35; Status DC Cefazolin Sodium 50 ml @ 100 mls/hr 1X ONCE IV Last administered on 03/06/18 10:11; Start 03/06/18 at 10:30; Stop 03/06/18 at 10:59; Status DC Heparin Sodium (Porcine) (Heparin Sodium) 4,200 unit 1X ONCE INT CAT Last administered on 03/06/18 10:11; Start 03/06/18 at 10:30; Stop 03/06/18 at 10:35; Status DC Clonidine HCl (Catapres) 0.1 mg BID PO Last administered on 03/07/18 13:13; Start 03/06/18 at 12:00 Dexamethasone (Decadron) 16 mg DAILY PO Last administered on 03/07/18 13:12; Start 03/06/18 at 12:00; Stop 03/08/18 at 09:00 Fentanyl (Duragesic 50mcg/ Hr Patch) 1 patch Q3DAYS TD ; Start 03/06/18 at 21:00 ; Stop 03/06/18 at 21:05; Status DC Lorazepam (Ativan) 0.5 mg PRN Q12HRS PRN PO ANXIETY / AGITATION; Start 03/06/18 at 11:30 Ondansetron HCl (Zofran Odt) 8 mg PRN Q8HRS PRN PO NAUSEA/VOMITING; Start at 11:30 Calcium Acetate (Phoslo) 667 mg TIDWMEALS PO Last administered on 03/07/18 13: 12; Start 03/06/18 at 12:00 Carvedilol (Coreg) 6.25 mg BIDWMEALS PO Last administered on 03/07/18 13:11; Start 03/06/18 at 12:00 Famotidine (Pepcid) 20 mg QHS PO Last administered on 1/1/19at 20:51; Start 03/06/18 at 21:00; Stop 03/07/18 at 13:15; Status DC Fluticasone Propionate (Flonase) 1 spray DAILY NS Last administered on at 12:16; Start 03/06/18 at 12:00 Guaifenesin/ Codeine Phosphate (Robitussin Ac) 10 ml PRN Q4HRS PRN PO COUGH; Start 03/06/18 at 11:45 Non-Formulary Medication (Melatonin ) 1 tab QHS PO ; Start 03/06/18 at 21:00; Status UNV Multivitamins (Thera M Plus) 1 tab DAILY PO Last administered on 03/07/18at 13:12 ; Start 03/06/18 at 12:00 Polyethylene Glycol (miraLAX PACKET) 17 gm QHS PO Last administered on at 20:57; Start 03/06/18 at 21:00 Sennosides (Senna) 8.6 mg DAILY PO Last administered on 03/07/18at 13:11; Start 03/06/18 at 12:00 Sertraline HCl (Zoloft) 150 mg DAILY PO Last administered on 03/07/18at 13:11; Start 03/06/18 at 12:00 Prochlorperazine Edisylate (Compazine) 10 mg PRN Q6HRS PRN IV NAUSEA/VOMITING Last administered on 03/07/18at 03:05; Start 03/06/18 at 12:45 Darbepoetin Taran (Aranesp) 60 mcg WEEKLYHS SQ Last administered on 03/06/18at 20: 52; Start 03/06/18 at 21:00 Magnesium Sulfate 50 ml @ 25 mls/hr PRN DAILY PRN IV for Mag < 1.7 on am labs; Start 03/06/18 at 13:45 Sodium Chloride 1,000 ml @ 1,000 mls/hr Q1H PRN IV hypotension; Start 03/06/18 at 12:30; Stop 03/06/18 at 18:29; Status DC Sodium Chloride 1,000 ml @ 400 mls/hr Q2H30M PRN IV PATENCY; Start 03/06/18 at 12:30; Stop 03/06/18 at 20:00; Status DC Info (PHARMACY MONITORING -- do not chart) 1 each PRN DAILY PRN MC SEE COMMENTS ; Start 03/06/18 at 15:00; Status UNV Info (PHARMACY MONITORING -- do not chart) 1 each PRN DAILY PRN MC SEE COMMENTS ; Start 03/06/18 at 15:00 Fentanyl (Duragesic 50mcg/ Hr Patch) 1 patch Q72H TD Last administered on at 21:08; Start 03/06/18 at 21:30 Sodium Chloride 1,000 ml @ 1,000 mls/hr Q1H PRN IV hypotension; Start 03/07/18 at 07:51; Stop 03/07/18 at 13:50 Albumin Human 200 ml @ 200 mls/hr 1X PRN PRN IV Hypotension; Start 03/07/18 at 08:00; Stop 03/07/18 at 13:59 Sodium Chloride 1,000 ml @ 400 mls/hr Q2H30M PRN IV PATENCY; Start 03/07/18 at 07:51; Stop 03/07/18 at 19:50 Info (PHARMACY MONITORING -- do not chart) 1 each PRN DAILY PRN MC SEE COMMENTS ; Start 03/07/18 at 08:00 Info (PHARMACY MONITORING -- do not chart) 1 each PRN DAILY PRN MC SEE COMMENTS ; Start 03/07/18 at 08:00; Status UNV Dexamethasone (Decadron) 12 mg DAILY PO ; Start 03/07/18 at 09:30; Stop 03/07/18 at 09:33; Status DC Dexamethasone (Decadron) 12 mg DAILY PO ; Start 03/09/18 at 09:00 Pantoprazole Sodium (Protonix) 40 mg DAILYAC PO ; Start 03/08/18 at 07:30 Active Scripts Active Reported Zoloft (Sertraline Hcl) 100 Mg Tablet 150 Mg PO DAILY Senna Lax (Sennosides) 8.6 Mg Tablet 8.6 Mg PO DAILY Proair Hfa (Albuterol Sulfate) 8.5 Gm Hfa.aer.ad 2 Puff INH PRN Q6HRS PRN Miralax (Polyethylene Glycol 3350) 17 Gm Powd.pack 1 Pkt PO HS Oxycodone Hcl 5 Mg Capsule 20 Mg PO PRN Q4HRS PRN Oxycodone Hcl 5 Mg Capsule 10 Mg PO PRN Q4HRS PRN Ondansetron Odt (Ondansetron) 4 Mg Tab.rapdis 8 Mg PO PRN Q8HRS PRN One-Daily Multi-Vitamin (Multivitamin) 1 Each Tablet 1 Each PO HS Melatonin 3 Mg Tablet 1 Tab PO QHS Ativan (Lorazepam) 0.5 Mg Tablet 0.5 Mg PO PRN Q12HRS PRN Guaifenesin-Codeine Syrup (Guaifenesin/Codeine Phosphate) 118 Ml Liquid 10 Ml PO PRN Q4HRS PRN Flonase Allergy Relief (Fluticasone Propionate) 9.9 Ml [place].susp 1 Sprays NS DAILY FENTANYL 50mcg/hr (Fentanyl) 1 Each Patch.td72 1 Patch TP Q3DAYS Famotidine 40 Mg Tablet 20 Mg PO HS Dexamethasone 4 Mg Tablet 4 Tab PO DAILY Clonidine Hcl 0.1 Mg Tablet 0.1 Mg PO BID Carvedilol 25 Mg Tablet 6.25 Mg PO BIDWMEALS Calcium Acetate 667 Mg Tablet 667 Mg PO TIDWMEALS Vitals/I & O Vital Sign - Last 24 Hours 03/06/18 03/06/18 03/06/18 03/06/18 18:11 19:00 20:05 20:56 Temp 98.0 98.0 Pulse 105 103 Resp 18 18 B/P (MAP) 129/83 126/77 (93) Pulse Ox 95 95 O2 Delivery Nasal Cannula Nasal Cannula Nasal Cannula O2 Flow Rate 2.0 2.0 2.0 03/06/18 03/06/18 03/06/18 03/07/18 21:08 22:09 23:00 02:33 Temp 97.8 97.8 Pulse 101 Resp 18 18 18 B/P (MAP) 136/82 (100) Pulse Ox 95 95 96 96 O2 Delivery Nasal Cannula Nasal Cannula Nasal Cannula Nasal Cannula O2 Flow Rate 2.0 2.0 2.0 2.0 03/07/18 03/07/18 03/07/18 03/07/18 03:00 07:00 08:00 13:11 Temp 98.2 97.7 98.2 97.7 Pulse 97 121 110 Resp 18 20 B/P (MAP) 153/94 (113) 131/88 (102) 117/81 Pulse Ox 96 93 O2 Delivery Nasal Cannula 2L Nasal Cannula O2 Flow Rate 2.0 03/07/18 13:13 Pulse 110 B/P (MAP) 117/81 Intake and Output 03/06/18 03/06/18 03/07/18 15:01 23:01 07:01 Intake Total 0 ml 320 ml 180 ml Balance 0 ml 320 ml 180 ml ROGERIO MONSALVE III, DO Mar 07, 2018 13:37
--- NOTE | 2018-03-07 14:34 | RAD ---
Abdominal radiograph March 07, 2018 INDICATION: Nausea and vomiting. COMPARISON: Ultrasound abdomen March 07, 2018 TECHNIQUE: Single supine view the abdomen is provided. FINDINGS: Lung bases are included on this radiograph. There are dilated loops of suspected small bowel the central abdomen measuring up to 4.1 cm. Supine technique limits evaluation for free intraperitoneal air. There may be wall thickening involving central small bowel loops suggestive of an enteritis. No suspicious osseous abnormality is identified. Surgical clips are identified in the retroperitoneum bilaterally. IMPRESSION: Dilated small bowel loops are identified within the central abdomen with suggestion of mild wall thickening. Consideration may be given for an enteritis. An ileus versus developing small bowel obstruction may have similar appearance. Electronically signed by: Diane Trent MD (03/07/2018 2:30 PM) [id number]
[2018-03-07 15:00] VITALS: BP 138/95
--- NOTE | 2018-03-07 15:31 | NUR ---
SW following for discharge planning, discussed with RN. Pt is from [facility]. SW faxed updates to [facility], [facility] can hold pt's bed at no charge to family. Attempted to contact pt's . Pt has been in dialysis most of the day, SW unable to visit. SW will continue to follow.
--- NOTE | 2018-03-07 15:49 | RAD ---
PQRS Compliance Statement: One or more of the following individualized dose reduction techniques were utilized for this examination: 1. Automated exposure control 2. Adjustment of the mA and/or kV according to patient size 3. Use of iterative reconstruction technique CT abdomen/pelvis without contrast 03/07/2018 3:10 PM INDICATION: Vomiting. COMPARISON: Abdominal radiograph March 07, 2018 TECHNIQUE: Multiple axial CT images of the abdomen and pelvis were obtained without intravenous contrast. Coronal and sagittal reformats are provided. FINDINGS: There is a small left pleural effusion. There is adjacent compressive atelectasis versus infiltrate. There is subsegmental atelectasis at the right lung base. There is a 6 cm solid noncalcified pulmonary nodule in the right middle lobe (series 2, image 9). A left lower lobe thoracostomy tube is partially profiled. There is suggestion of pleural thickening at the left lung base. Evaluation of the solid abdominal viscera is limited by lack of intravenous contrast. There is mild nodular contour of the hepatic parenchyma which may reflect underlying hepatic disease such as cirrhosis. Spleen is nonenlarged. There is focal hypoattenuation along the superior aspect of the spleen measuring 2.9 cm which is inadequately assessed without contrast. There is nodular thickening of the left adrenal gland which is indeterminate measuring up to 9 mm. A right adrenal gland is normal in appearance. There is mild atrophy of the pancreas. No peripancreatic inflammatory changes are identified. Gallbladder appears surgically absent. Abdominal aorta is normal in course and caliber with mild calcified atheromatous plaque. There are no pathologically enlarged lymph nodes in abdomen and pelvis. There is moderate to large volume abdominal ascites. Mild renal parenchymal atrophy. Duplex right renal collecting system is identified with prominence of the right renal collecting system and right ureter. Findings may be secondary to reflux. There is no hydronephrosis of the inferior moiety. Left kidney appears normal. No definite contour deforming renal masses are identified. Minimal oral contrast is noted. Differential air-fluid levels are identified. There are dilated small bowel loops measuring up to 3.6 cm. Large bowel is normal in caliber with moderate amount of stool. Stomach is normal in appearance. Evaluation for transition point is limited, however it does appear that the distal terminal ileum is somewhat decompressed. There is nodular thickening along the ventral abdominal wall the supra umbilical region measuring up to 14 mm. Findings are indeterminate and correlation with any prior surgical history is recommended. Anasarca is noted with edema and bilateral flanks. Pelvis evaluation is limited by ascites. Urinary bladder is within normal limits given degree of distention. No suspicious adnexal masses are identified. Supervision the left adnexa measures 2.1 cm suggestive of a dominant follicle. As osseous abnormality is identified. IMPRESSION: 1. Dilated small bowel loops most suggestive of small bowel obstruction without definite transition point visualized due to limited evaluation secondary to the lack of contrast opacification of small bowel loops as well as moderate to large volume abdominal ascites. Short-term follow-up radiographs may be of benefit to assess partial versus complete obstruction. 2. Suggestion of cirrhosis with abdominal ascites. No splenomegaly. Small left pleural effusion which appears loculated. Left-sided thoracostomy tube is partially profiled. Bibasilar subsegmental atelectasis versus infiltrates. 3. Indeterminate splenic lesion measuring 2.9 cm. Further evaluation with a contrast-enhanced CT study may be of benefit. 4. Fusiform thickening of the left adrenal gland may be secondary to adrenal hyperplasia. Attention on follow-up exams is recommended. 5. Nodular thickening is identified along the ventral abdominal wall in the supraumbilical region with nodules measuring up to 14 mm. Electronically signed by: Diane Trent MD (03/07/2018 3:45 PM) [id number]
[2018-03-07 16:54] LABS: PROTHROMBIN TIME PATIENT 14.9 SEC (11.7-14.0)
--- NOTE | 2018-03-07 17:07 | PDOC2 ---
PALLIATIVE CARE Palliative Care Note Palliative Care Consult requested by Dr. Phillip to provide information on hospice services. Medical Assessment per medical record Chief Complaint Hyperkalemia Ovarian Cancer End Stage Renal Disease, HD dependent Tachycardia Met with patient and her Richy Provided information regarding Hospice Services and Palliative Care Goal of patient and is to continue dialysis ( result of chemotherapy toxicity per patient) continue with paracentesis when needed. Hopefully be able to stay closer to home in [place]. They have met Hospice and Palliative Care Team when at [facility]. Discussed Code Status; Full code. states he is DPOA and "will make that decision at the time" Informed of emergent situation and that may not have time for discussion. Patient can be removed from Life Support if started. Acknowledges understanding. Plan; Continue current treatment plan Full Code Available tomorrow if more discussion needed ANITA YI Mar 07, 2018 17:07
[2018-03-07 19:00] VITALS: BP 127/77
[2018-03-07] MEDS: POLYETHYLENE GLYCOL 3350 17 GM PACKET. PO SCH (21:00)
[2018-03-07] MEDS: ONDANSETRON ODT 4 MG TAB.RAPDIS. PO PRN (21:42)
[2018-03-07] MEDS: oxyCODONE IR 5 MG TABLET PO PRN (21:43)
[2018-03-07 23:00] VITALS: BP 124/82
[2018-03-08] VITALS (8 sets, daily range): BP systolic 129–149; BP diastolic 52–91
[2018-03-08 05:56] LABS: HEMATOCRIT 22.8 % (36.0-47.0); HEMOGLOBIN 7.1 g/dL (12.0-15.5); RED BLOOD COUNT 2.51 x10^6/uL (3.50-5.40); WHITE BLOOD COUNT 12.3 x10^3/uL (4.0-11.0)
[2018-03-08 06:32] LABS: ALBUMIN 1.8 g/dL (3.4-5.0); CALCIUM 8.7 mg/dL (8.5-10.1); CREATININE 3.1 mg/dL (0.6-1.0); GFR 15.5; PHOSPHORUS 3.1 mg/dL (2.6-4.7); POTASSIUM 3.9 mmol/L (3.5-5.1)
[2018-03-08] MEDS ORDERED: PANTOPRAZOLE 40 MG TABLET.DR. PO SCH (07:30)
[2018-03-08] MEDS: CALCIUM ACETATE 667 MG CAPSULE PO SCH ×3 (08:00→17:34)
[2018-03-08] MEDS: CARVEDILOL 6.25 MG TABLET. PO SCH ×2 (08:00→17:33)
[2018-03-08] MEDS: PANTOPRAZOLE IV PUSH 40 MG VIAL. IVP SCH (08:11)
[2018-03-08] MEDS: cloNIDine HCL 0.1 MG TABLET PO SCH ×2 (08:20→21:07)
[2018-03-08] MEDS: SENNOSIDES 8.6 MG TABLET PO SCH (08:20)
[2018-03-08] MEDS: FLUTICASONE 50MCG/NASAL SPRAY 16GM BOTTLE. NS SCH (08:20)
[2018-03-08] MEDS: MULTIVITAMIN with MINERAL TABLET. PO SCH (08:20)
[2018-03-08] MEDS: DEXAMETHASONE 4 MG TABLET PO SCH (08:20)
[2018-03-08] MEDS: SERTRALINE 50 MG TABLET. PO SCH (08:21)
[2018-03-08] MEDS: POLYETHYLENE GLYCOL 3350 17 GM PACKET. PO SCH (08:21)
--- NOTE | 2018-03-08 08:48 | RAD ---
MR#: [id number] Date of Study: 03/07/2018 Ordering Physician: JIGAR OLIVER, Referring Physician: MIRTHA BEATTY Tech: Kennedi Lima RT R, CT RDMS AB, RVT APPROVED REPORT Bilateral Lower Extremity Venous Study for DVT Patient Location: IN-PATIENT Indications Lower Extremity Edema: Bilateral Vein Imaging (Right) CFV (R): Compressible SFJ (R): Compressible FEM (R): Compressible POP (R): Compressible DFV (R): Compressible PTV (R): Compressible GSV (R): Compressible Vein Imaging (Left) CFV (L): Compressible SFJ (L): Compressible FEM (L): Compressible POP (L): Compressible DFV (L): Compressible PTV (L): Compressible GSV (L): Compressible Doppler Evaluation (Right) CFV (R): Spontaneous POP (R):Spontaneous Doppler Evaluation (Left) CFV (L):Spontaneous POP (L):Spontaneous Findings The bilateral lower extremity deep veins were evaluated for thrombus with color Doppler, spectral and grayscale images. On the right the grayscale images of the common femoral, superficial femoral and popliteal veins do n ot demonstrate any evidence of thrombus and these veins appear to be compressible. The below-knee vei ns were not well visualized but grossly appear to be compressible. Spectral imaging and color Doppler do not reveal any evidence of obstruction to flow with normal respirophasic variation above the knee . Below the knee there is spontaneous flow noted. On the left, the grayscale images of the common femoral, superficial femoral and popliteal veins do n ot demonstrate any evidence of thrombus and these veins appear to be compressible. The below-knee vei ns again were not well visualized but grossly appear to be compressible. Spectral imaging and color D oppler do not reveal any evidence of obstruction to flow with normal respirophasic variation above th e knee. The below-knee veins demonstrate spontaneous flow. Diffuse LE edema noted. Critical Notification Critical Value: No <Conclusion> 1. Negative for DVT 2. Diffuse LE edema noted. 3. Technically difficult stuyd Signed by : Lisandro Arora, Electronically Approved : 03/08/2018 08:47:02
--- NOTE | 2018-03-08 08:53 | PDOC ---
PROGRESS NOTES Chief Complaint Chief Complaint Hyperkalemia Ovarian Cancer End Stage Renal Disease, HD dependent Tachycardia History of Present Illness History of Present Illness PT seen and examined, spoke with nursing staff. when interviewed. Observed CDI bandage. CHOSE Hospice options PT requests paracentesis for abdominal fluid. Vitals Vitals Vital Signs Date Time Temp Pulse Resp B/P (MAP) Pulse Ox O2 Delivery O2 Flow Rate FiO2 03/08/18 08:20 114 145/89 03/08/18 07:00 99.0 16 96 Room Air 99.0 03/07/18 23:07 2.0 Physical Exam Physical Exam General: ALERT Heart: Other (tachycardia at 111 bpm) Abdomen: SOFT GEN: NAD LUNGS: CTAB HEART: RRR There is a small left pleural effusion. There is adjacent compressive atelectasis versus infiltrate. There is subsegmental atelectasis at the right lung base. There is a 6 cm solid noncalcified pulmonary nodule in the right middle lobe (series 2, image 9). A left lower lobe thoracostomy tube is partially profiled. There is suggestion of pleural thickening at the left lung base. Evaluation of the solid abdominal viscera is limited by lack of intravenous contrast. There is mild nodular contour of the hepatic parenchyma which may reflect underlying hepatic disease such as cirrhosis. Spleen is nonenlarged. There is focal hypoattenuation along the superior aspect of the spleen measuring 2.9 cm which is inadequately assessed without contrast. There is nodular thickening of the left adrenal gland which is indeterminate measuring up to 9 mm. A right adrenal gland is normal in appearance. There is mild atrophy of the pancreas. No peripancreatic inflammatory changes are identified. Gallbladder appears surgically absent. Abdominal aorta is normal in course and caliber with mild calcified atheromatous plaque. There are no pathologically enlarged lymph nodes in abdomen and pelvis. There is moderate to large volume abdominal ascites. Mild renal parenchymal atrophy. Duplex right renal collecting system is identified with prominence of the right renal collecting system and right ureter. Findings may be secondary to reflux. There is no hydronephrosis of the inferior moiety. Left kidney appears normal. No definite contour deforming renal masses are identified. Minimal oral contrast is noted. Differential air-fluid levels are identified. There are dilated small bowel loops measuring up to 3.6 cm. Large bowel is normal in caliber with moderate amount of stool. Stomach is normal in appearance. Evaluation for transition point is limited, however it does appear that the distal terminal ileum is somewhat decompressed. There is nodular thickening along the ventral abdominal wall the supra umbilical region measuring up to 14 mm. Findings are indeterminate and correlation with any prior surgical history is recommended. Anasarca is noted with edema and bilateral flanks. Pelvis evaluation is limited by ascites. Urinary bladder is within normal limits given degree of distention. No suspicious adnexal masses are identified. Supervision the left adnexa measures 2.1 cm suggestive of a dominant follicle. As osseous abnormality is identified. IMPRESSION: 1. Dilated small bowel loops most suggestive of small bowel obstruction without definite transition point visualized due to limited evaluation secondary to the lack of contrast opacification of small bowel loops as well as moderate to large volume abdominal ascites. Short-term follow-up radiographs may be of benefit to assess partial versus complete obstruction. 2. Suggestion of cirrhosis with abdominal ascites. No splenomegaly. Small left pleural effusion which appears loculated. Left-sided thoracostomy tube is partially profiled. Bibasilar subsegmental atelectasis versus infiltrates. 3. Indeterminate splenic lesion measuring 2.9 cm. Further evaluation with a contrast-enhanced CT study may be of benefit. 4. Fusiform thickening of the left adrenal gland may be secondary to adrenal hyperplasia. Attention on follow-up exams is recommended. 5. Nodular thickening is identified along the ventral abdominal wall in the supraumbilical region with nodules measuring up to 14 mm. Electronically signed by: Diane Trent MD (03/07/2018 3:45 PM) [id number] General: Cooperative, mild distress Heart: Regular rate, Other (tachycardia at 119 bpm) Abdomen: No hepatosplenomegaly, Other (POST PARACENTESIS) Extremities: No cyanosis Labs LABS Laboratory Tests Test 03/07/18 16:35 03/08/18 05:15 Prothrombin Time 14.9 SEC (11.7-14.0) Prothromb Time International Ratio 1.2 (0.8-1.1) Activated Partial Thromboplast Time 33 SEC (24-38) White Blood Count 12.3 x10^3/uL (4.0-11.0) Red Blood Count 2.51 x10^6/uL (3.50-5.40) Hemoglobin 7.1 g/dL (12.0-15.5) Hematocrit 22.8 % (36.0-47.0) Mean Corpuscular Volume 91 fL (79-100) Mean Corpuscular Hemoglobin 28 pg (25-35) Mean Corpuscular Hemoglobin Concent 31 g/dL (31-37) Red Cell Distribution Width 20.0 % (11.5-14.5) Platelet Count 362 x10^3/uL (140-400) Sodium Level 142 mmol/L (136-145) Potassium Level 3.9 mmol/L (3.5-5.1) Chloride Level 102 mmol/L (98-107) Carbon Dioxide Level 30 mmol/L (21-32) Anion Gap 10 (6-14) Blood Urea Nitrogen 34 mg/dL (7-20) Creatinine 3.1 mg/dL (0.6-1.0) Estimated GFR (Cockcroft-Gault) 15.5 Glucose Level 79 mg/dL (70-99) Calcium Level 8.7 mg/dL (8.5-10.1) Phosphorus Level 3.1 mg/dL (2.6-4.7) Magnesium Level 1.8 mg/dL (1.8-2.4) Albumin 1.8 g/dL (3.4-5.0) Assessment and Plan Assessmemt and Plan Problems Medical Problems: (1) Dialysis catheter clot or failure Status: Acute (2) Serum potassium elevated Status: Acute Comment Review of Relevant I have reviewed the following items arden (where applicable) has been applied. Labs Laboratory Tests Test 03/06/18 16:25 03/07/18 04:56 03/07/18 16:35 03/08/18 05:15 Hepatitis B Surface Antigen Nonreactive (Nonreactive) Hepatitis B Surface Antibody Nonreactive Hemoglobin 7.2 g/dL (12.0-15.5) 7.1 g/dL (12.0-15.5) Sodium Level 140 mmol/L (136-145) 142 mmol/L (136-145) Potassium Level 4.5 mmol/L (3.5-5.1) 3.9 mmol/L (3.5-5.1) Chloride Level 98 mmol/L (98-107) 102 mmol/L (98-107) Carbon Dioxide Level 30 mmol/L (21-32) 30 mmol/L (21-32) Anion Gap 12 (6-14) 10 (6-14) Blood Urea Nitrogen 66 mg/dL (7-20) 34 mg/dL (7-20) Creatinine 5.1 mg/dL (0.6-1.0) 3.1 mg/dL (0.6-1.0) Estimated GFR (Cockcroft-Gault) 8.7 15.5 Glucose Level 120 mg/dL (70-99) 79 mg/dL (70-99) Calcium Level 8.9 mg/dL (8.5-10.1) 8.7 mg/dL (8.5-10.1) Phosphorus Level 4.1 mg/dL (2.6-4.7) 3.1 mg/dL (2.6-4.7) Magnesium Level 2.0 mg/dL (1.8-2.4) 1.8 mg/dL (1.8-2.4) Iron Level 17 ug/dL (50-170) Total Iron Binding Capacity 113 ug/dL (250-450) Iron Saturation 15 % (15-34) Ferritin 967 ng/mL (8-252) Albumin 1.8 g/dL (3.4-5.0) 1.8 g/dL (3.4-5.0) Prothrombin Time 14.9 SEC (11.7-14.0) Prothromb Time International Ratio 1.2 (0.8-1.1) Activated Partial Thromboplast Time 33 SEC (24-38) White Blood Count 12.3 x10^3/uL (4.0-11.0) Red Blood Count 2.51 x10^6/uL (3.50-5.40) Hematocrit 22.8 % (36.0-47.0) Mean Corpuscular Volume 91 fL (79-100) Mean Corpuscular Hemoglobin 28 pg (25-35) Mean Corpuscular Hemoglobin Concent 31 g/dL (31-37) Red Cell Distribution Width 20.0 % (11.5-14.5) Platelet Count 362 x10^3/uL (140-400) Laboratory Tests Test 03/07/18 16:35 03/08/18 05:15 Prothrombin Time 14.9 SEC (11.7-14.0) Prothromb Time International Ratio 1.2 (0.8-1.1) Activated Partial Thromboplast Time 33 SEC (24-38) White Blood Count 12.3 x10^3/uL (4.0-11.0) Red Blood Count 2.51 x10^6/uL (3.50-5.40) Hemoglobin 7.1 g/dL (12.0-15.5) Hematocrit 22.8 % (36.0-47.0) Mean Corpuscular Volume 91 fL (79-100) Mean Corpuscular Hemoglobin 28 pg (25-35) Mean Corpuscular Hemoglobin Concent 31 g/dL (31-37) Red Cell Distribution Width 20.0 % (11.5-14.5) Platelet Count 362 x10^3/uL (140-400) Sodium Level 142 mmol/L (136-145) Potassium Level 3.9 mmol/L (3.5-5.1) Chloride Level 102 mmol/L (98-107) Carbon Dioxide Level 30 mmol/L (21-32) Anion Gap 10 (6-14) Blood Urea Nitrogen 34 mg/dL (7-20) Creatinine 3.1 mg/dL (0.6-1.0) Estimated GFR (Cockcroft-Gault) 15.5 Glucose Level 79 mg/dL (70-99) Calcium Level 8.7 mg/dL (8.5-10.1) Phosphorus Level 3.1 mg/dL (2.6-4.7) Magnesium Level 1.8 mg/dL (1.8-2.4) Albumin 1.8 g/dL (3.4-5.0) Medications Current Medications Ondansetron HCl (Zofran) 4 mg PRN Q8HRS PRN IV NAUSEA/VOMITING Last administered on 03/06/18at 05:34; Start 03/05/18 at 22:00; Stop 03/06/18 at 21:59 ; Status DC Fentanyl Citrate (Fentanyl 2ml Vial) 50 mcg PRN Q1HR PRN IV PAIN Last administered on 03/06/18at 05:35; Start 03/05/18 at 22:00; Stop 03/06/18 at 21:59 ; Status DC Calcium Gluconate (Calcium Gluconate) 1,000 mg 1X ONCE IVP Last administered on 03/05/18at 23:23; Start 03/05/18 at 22:15; Stop 03/05/18 at 22:16; Status DC Sodium Bicarbonate (Sodium Bicarb Adult 8.4% Syr) 50 meq 1X ONCE IV Last administered on 03/05/18at 23:23; Start 03/05/18 at 22:15; Stop 03/05/18 at 22 :16; Status DC Sodium Polystyrene Sulfonate (Kayexalate) 30 gm 1X ONCE PO Last administered on 03/05/18at 23:23; Start 03/05/18 at 22:15; Stop 03/05/18 at 22:16; Status DC Ondansetron HCl (Zofran) 4 mg 1X ONCE IV Last administered on 03/05/18at 22:55 ; Start 03/05/18 at 22:45; Stop 03/05/18 at 22:55; Status DC Prochlorperazine Edisylate (Compazine) 10 mg PRN Q6HRS PRN IM NAUSEA/VOMITING; Start 03/06/18 at 06:15; Stop 03/06/18 at 12:32; Status DC Oxycodone HCl (Roxicodone) 10 mg PRN Q4HRS PRN PO PAIN Last administered on 03/07at 21:43; Start 03/06/18 at 06:15 Oxycodone HCl (Roxicodone) 20 mg PRN Q4HRS PRN PO PAIN; Start 03/06/18 at 06:15 Lidocaine/ Epinephrine (LIDOCAINE 1%-EPI 1:100,000 Multi-Dose) 20 ml STK-MED ONCE .ROUTE ; Start 03/06/18 at 09:11; Stop 03/06/18 at 09:12; Status DC Cefazolin Sodium 50 ml @ As Directed STK-MED ONCE IV ; Start 03/06/18 at 09:34; Stop 03/06/18 at 09:35; Status DC Midazolam HCl (Versed) 2 mg STK-MED ONCE .ROUTE ; Start 03/06/18 at 09:34; Stop 03/06/18 at 09:35; Status DC Fentanyl Citrate (Fentanyl 2ml Vial) 100 mcg STK-MED ONCE .ROUTE ; Start at 09:34; Stop 03/06/18 at 09:35; Status DC Heparin Sodium (Porcine) (Heparin Sodium) 10,000 unit STK-MED ONCE .ROUTE ; Start 03/06/18 at 09:44; Stop 03/06/18 at 09:46; Status DC Midazolam HCl (Versed) 2 mg 1X ONCE IV Last administered on 03/06/18 10:11; Start 03/06/18 at 10:30; Stop 03/06/18 at 10:35; Status DC Fentanyl Citrate (Fentanyl 2ml Vial) 100 mcg 1X ONCE IV Last administered on 10:11; Start 03/06/18 at 10:30; Stop 03/06/18 at 10:35; Status DC Lidocaine/ Epinephrine (LIDOCAINE 1%-EPI 1:100,000 Multi-Dose) 20 ml 1X ONCE IJ Last administered on 03/06/18 10:09; Start 03/06/18 at 10:30; Stop 03/06/18 at 10:35; Status DC Cefazolin Sodium 50 ml @ 100 mls/hr 1X ONCE IV Last administered on 03/06/18 10:11; Start 03/06/18 at 10:30; Stop 03/06/18 at 10:59; Status DC Heparin Sodium (Porcine) (Heparin Sodium) 4,200 unit 1X ONCE INT CAT Last administered on 03/06/18 10:11; Start 03/06/18 at 10:30; Stop 03/06/18 at 10:35; Status DC Clonidine HCl (Catapres) 0.1 mg BID PO Last administered on 03/07/18 13:13; Start 03/06/18 at 12:00 Dexamethasone (Decadron) 16 mg DAILY PO Last administered on 03/07/18 13:12; Start 03/06/18 at 12:00; Stop 03/08/18 at 09:00 Fentanyl (Duragesic 50mcg/ Hr Patch) 1 patch Q3DAYS TD ; Start 03/06/18 at 21:00 ; Stop 03/06/18 at 21:05; Status DC Lorazepam (Ativan) 0.5 mg PRN Q12HRS PRN PO ANXIETY / AGITATION; Start 03/06/18 at 11:30 Ondansetron HCl (Zofran Odt) 8 mg PRN Q8HRS PRN PO NAUSEA/VOMITING Last administered on 03/07/18 21:42; Start 03/06/18 at 11:30 Calcium Acetate (Phoslo) 667 mg TIDWMEALS PO Last administered on 03/07/18 13: 12; Start 03/06/18 at 12:00 Carvedilol (Coreg) 6.25 mg BIDWMEALS PO Last administered on 03/07/18 17:10; Start 03/06/18 at 12:00 Famotidine (Pepcid) 20 mg QHS PO Last administered on 03/06/18at 20:51; Start 03/06/18 at 21:00; Stop 03/07/18 at 13:15; Status DC Fluticasone Propionate (Flonase) 1 spray DAILY NS Last administered on 12:16; Start 03/06/18 at 12:00 Guaifenesin/ Codeine Phosphate (Robitussin Ac) 10 ml PRN Q4HRS PRN PO COUGH; Start 03/06/18 at 11:45 Non-Formulary Medication (Melatonin ) 1 tab QHS PO ; Start 03/06/18 at 21:00; Status UNV Multivitamins (Thera M Plus) 1 tab DAILY PO Last administered on 03/07/18 13:12 ; Start 03/06/18 at 12:00 Polyethylene Glycol (miraLAX PACKET) 17 gm QHS PO Last administered on 20:57; Start 03/06/18 at 21:00 Sennosides (Senna) 8.6 mg DAILY PO Last administered on 03/07/18 13:11; Start 03/06/18 at 12:00 Sertraline HCl (Zoloft) 150 mg DAILY PO Last administered on 03/07/18 13:11; Start 03/06/18 at 12:00 Prochlorperazine Edisylate (Compazine) 10 mg PRN Q6HRS PRN IV NAUSEA/VOMITING Last administered on 03/07/18 03:05; Start 03/06/18 at 12:45 Darbepoetin Taran (Aranesp) 60 mcg WEEKLYHS SQ Last administered on 03/06/18 20: 52; Start 03/06/18 at 21:00 Magnesium Sulfate 50 ml @ 25 mls/hr PRN DAILY PRN IV for Mag < 1.7 on am labs; Start 03/06/18 at 13:45 Sodium Chloride 1,000 ml @ 1,000 mls/hr Q1H PRN IV hypotension; Start 03/06/18 at 12:30; Stop 03/06/18 at 18:29; Status DC Sodium Chloride 1,000 ml @ 400 mls/hr Q2H30M PRN IV PATENCY; Start 03/06/18 at 12:30; Stop 03/06/18 at 20:00; Status DC Info (PHARMACY MONITORING -- do not chart) 1 each PRN DAILY PRN MC SEE COMMENTS ; Start 03/06/18 at 15:00; Status UNV Info (PHARMACY MONITORING -- do not chart) 1 each PRN DAILY PRN MC SEE COMMENTS ; Start 03/06/18 at 15:00; Stop 03/07/18 at 16:17; Status DC Fentanyl (Duragesic 50mcg/ Hr Patch) 1 patch Q72H TD Last administered on at 21:08; Start 03/06/18 at 21:30 Sodium Chloride 1,000 ml @ 1,000 mls/hr Q1H PRN IV hypotension; Start 03/07/18 at 07:51; Stop 03/07/18 at 13:50; Status DC Albumin Human 200 ml @ 200 mls/hr 1X PRN PRN IV Hypotension; Start 03/07/18 at 08:00; Stop 03/07/18 at 13:59; Status DC Sodium Chloride 1,000 ml @ 400 mls/hr Q2H30M PRN IV PATENCY; Start 03/07/18 at 07:51; Stop 03/07/18 at 19:50; Status DC Info (PHARMACY MONITORING -- do not chart) 1 each PRN DAILY PRN MC SEE COMMENTS ; Start 03/07/18 at 08:00 Info (PHARMACY MONITORING -- do not chart) 1 each PRN DAILY PRN MC SEE COMMENTS ; Start 03/07/18 at 08:00; Status UNV Dexamethasone (Decadron) 12 mg DAILY PO ; Start 03/07/18 at 09:30; Stop 03/07/18 at 09:33; Status DC Dexamethasone (Decadron) 12 mg DAILY PO ; Start 03/09/18 at 09:00 Pantoprazole Sodium (Protonix) 40 mg DAILYAC PO ; Start 03/08/18 at 07:30; Stop 03/08/18 at 07:30; Status DC Pantoprazole Sodium (PROTONIX VIAL for IV PUSH) 40 mg DAILYAC IVP Last administered on 03/08/18at 08:11; Start 03/08/18 at 07:30 Active Scripts Active Reported Zoloft (Sertraline Hcl) 100 Mg Tablet 150 Mg PO DAILY Senna Lax (Sennosides) 8.6 Mg Tablet 8.6 Mg PO DAILY Proair Hfa (Albuterol Sulfate) 8.5 Gm Hfa.aer.ad 2 Puff INH PRN Q6HRS PRN Miralax (Polyethylene Glycol 3350) 17 Gm Powd.pack 1 Pkt PO HS Oxycodone Hcl 5 Mg Capsule 20 Mg PO PRN Q4HRS PRN Oxycodone Hcl 5 Mg Capsule 10 Mg PO PRN Q4HRS PRN Ondansetron Odt (Ondansetron) 4 Mg Tab.rapdis 8 Mg PO PRN Q8HRS PRN One-Daily Multi-Vitamin (Multivitamin) 1 Each Tablet 1 Each PO HS Melatonin 3 Mg Tablet 1 Tab PO QHS Ativan (Lorazepam) 0.5 Mg Tablet 0.5 Mg PO PRN Q12HRS PRN Guaifenesin-Codeine Syrup (Guaifenesin/Codeine Phosphate) 118 Ml Liquid 10 Ml PO PRN Q4HRS PRN Flonase Allergy Relief (Fluticasone Propionate) 9.9 Ml [place].susp 1 Sprays NS DAILY FENTANYL 50mcg/hr (Fentanyl) 1 Each Patch.td72 1 Patch TP Q3DAYS Famotidine 40 Mg Tablet 20 Mg PO HS Dexamethasone 4 Mg Tablet 4 Tab PO DAILY Clonidine Hcl 0.1 Mg Tablet 0.1 Mg PO BID Carvedilol 25 Mg Tablet 6.25 Mg PO BIDWMEALS Calcium Acetate 667 Mg Tablet 667 Mg PO TIDWMEALS Vitals/I & O Vital Sign - Last 24 Hours 03/07/18 03/07/18 03/07/18 03/07/18 13:11 13:13 15:00 17:10 Temp 99.1 99.1 Pulse 110 110 115 115 Resp 20 B/P (MAP) 117/81 117/81 138/95 (109) 138/95 Pulse Ox 96 O2 Delivery 2L 03/07/18 03/07/18 03/07/18 03/07/18 19:00 20:12 21:00 21:43 Temp 99.0 99.0 Pulse 110 110 Resp 16 18 B/P (MAP) 127/77 (94) 127/77 Pulse Ox 98 98 O2 Delivery Nasal Cannula Nasal Cannula Nasal Cannula O2 Flow Rate 2.0 2.0 2.0 03/07/18 03/07/18 03/08/18 03/08/18 23:00 23:07 03:00 07:00 Temp 98.3 98.1 99.0 98.3 98.1 99.0 Pulse 107 109 114 Resp 15 18 16 16 B/P (MAP) 124/82 (96) 138/90 (106) 145/89 (107) Pulse Ox 93 98 95 96 O2 Delivery Room Air Nasal Cannula Room Air Room Air O2 Flow Rate 2.0 03/08/18 03/08/18 08:00 08:20 Pulse 114 114 B/P (MAP) 145/89 145/89 Intake and Output 03/07/18 03/07/18 03/08/18 15:01 23:01 07:01 Intake Total 600 ml 330 ml 0 ml Output Total 0 ml Balance 600 ml 330 ml 0 ml Nutrition Consultation Dietary Evaluation: Recommendations by RD: Increase Calorie Intake, Protein supplementation Comments: sending ensure clear tid Expected Outcomes/Goals: diet advancement/ tolerance Malnutrition Findings: Food and Nutrition Intake (Mod: <75% est energy req 7days Weight Status: Overweight PURA MARTÍNEZ MD Mar 08, 2018 08:53
--- NOTE | 2018-03-08 10:01 | PDOC ---
SUBJECTIVE Subjective S: She did see palliative care and has declined further palliative interventions ,fatigue today O: Physical exam: Gen: resting in bed, NAD, tired Psych: pleasant mood and affect Labs: White count 2.3, hemoglobin 7.1, platelets 362, ferritin 967, iron sat 15% Rads: BLE u/s neg for DVT, limited study Assessment and Plan: She is a 57-year-old female with metastatic ovarian cancer , not a candidate for further anticancer therapy due to poor functional status, she stays at [facility], and has end-stage renal disease on dialysis. Good candidate for, but not interested in hospice. On palliative dexamethasone, currently 12 mg daily, and on Aranesp for anemia w/ low iron sat. Anemia: Continue Aranesp, transfuse if <Hb of 7, even though ferritin elevated will add oral iron due to sat less than 20% BLE edema: us neg for DVT, albumin per nephro End-stage renal disease: On dialysis Ovarian cancer: no current active tx, follow-up with pall care and gynecology oncology at as needed as outpatient, will wean dexamethasone slowly, 12 mg daily as of Mar, this can continue to be weaned over time as long as she is having no benefit from it (was started for ascites she tells me). Thank you kindly, and please do not hesitate to call with any further questions. OBJECTIVE Vital Signs Vital Signs Date Time Temp Pulse Resp B/P (MAP) Pulse Ox O2 Delivery O2 Flow Rate FiO2 03/08/18 08:20 114 145/89 03/08/18 08:00 114 145/89 03/08/18 07:00 99.0 114 16 145/89 (107) 96 Room Air 99.0 03/08/18 03:00 98.1 109 16 138/90 (106) 95 Room Air 98.1 03/07/18 23:07 18 98 Nasal Cannula 2.0 03/07/18 23:00 98.3 107 15 124/82 (96) 93 Room Air 98.3 03/07/18 21:43 18 98 Nasal Cannula 2.0 03/07/18 21:00 110 127/77 03/07/18 20:12 Nasal Cannula 2.0 03/07/18 19:00 99.0 110 16 127/77 (94) 98 Nasal Cannula 2.0 99.0 03/07/18 17:10 115 138/95 1/2/19 15:00 99.1 115 20 138/95 (109) 96 2L 99.1 03/07/18 13:13 110 117/81 03/07/18 13:11 110 117/81 I & O Intake and Output 03/08/18 07:01 Intake Total 930 ml Output Total 0 ml Balance 930 ml Intake Oral 930 ml Output Urine Total 0 ml COMMENT Lab Laboratory Tests Test 03/07/18 16:35 03/08/18 05:15 Prothrombin Time 14.9 SEC (11.7-14.0) Prothromb Time International Ratio 1.2 (0.8-1.1) Activated Partial Thromboplast Time 33 SEC (24-38) White Blood Count 12.3 x10^3/uL (4.0-11.0) Red Blood Count 2.51 x10^6/uL (3.50-5.40) Hemoglobin 7.1 g/dL (12.0-15.5) Hematocrit 22.8 % (36.0-47.0) Mean Corpuscular Volume 91 fL (79-100) Mean Corpuscular Hemoglobin 28 pg (25-35) Mean Corpuscular Hemoglobin Concent 31 g/dL (31-37) Red Cell Distribution Width 20.0 % (11.5-14.5) Platelet Count 362 x10^3/uL (140-400) Sodium Level 142 mmol/L (136-145) Potassium Level 3.9 mmol/L (3.5-5.1) Chloride Level 102 mmol/L (98-107) Carbon Dioxide Level 30 mmol/L (21-32) Anion Gap 10 (6-14) Blood Urea Nitrogen 34 mg/dL (7-20) Creatinine 3.1 mg/dL (0.6-1.0) Estimated GFR (Cockcroft-Gault) 15.5 Glucose Level 79 mg/dL (70-99) Calcium Level 8.7 mg/dL (8.5-10.1) Phosphorus Level 3.1 mg/dL (2.6-4.7) Magnesium Level 1.8 mg/dL (1.8-2.4) Albumin 1.8 g/dL (3.4-5.0) Nutrition Consultation Dietary Evaluation: Recommendations by RD: Increase Calorie Intake, Protein supplementation Comments: sending ensure clear tid Expected Outcomes/Goals: diet advancement/ tolerance Malnutrition Findings: Food and Nutrition Intake (Mod: <75% est energy req 7days Weight Status: Overweight ROSALIO DANIELS MD Mar 08, 2018 10:01
[2018-03-08] MEDS: FERROUS SULFATE ORAL 300 MG/5 ML SOLUTION. PO SCH (10:30)
--- NOTE | 2018-03-08 11:00 | PDOC ---
Subjective: Subjective: Didn't get much sleep last night. Tolerating ice chips/water. Abdomen feels the same - passing gas and stooled earlier today. No vomiting. Objective: Vital Signs: Vital Signs Date Time Temp Pulse Resp B/P (MAP) Pulse Ox O2 Delivery O2 Flow Rate FiO2 03/08/18 08:20 114 145/89 03/08/18 07:00 99.0 16 96 Room Air 99.0 03/07/18 23:07 2.0 Labs: Laboratory Tests Test 03/07/18 16:35 03/08/18 05:15 Prothrombin Time 14.9 SEC Prothromb Time International Ratio 1.2 Activated Partial Thromboplast Time 33 SEC White Blood Count 12.3 x10^3/uL Red Blood Count 2.51 x10^6/uL Hemoglobin 7.1 g/dL Hematocrit 22.8 % Mean Corpuscular Volume 91 fL Mean Corpuscular Hemoglobin 28 pg Mean Corpuscular Hemoglobin Concent 31 g/dL Red Cell Distribution Width 20.0 % Platelet Count 362 x10^3/uL Sodium Level 142 mmol/L Potassium Level 3.9 mmol/L Chloride Level 102 mmol/L Carbon Dioxide Level 30 mmol/L Anion Gap 10 Blood Urea Nitrogen 34 mg/dL Creatinine 3.1 mg/dL Estimated GFR (Cockcroft-Gault) 15.5 Glucose Level 79 mg/dL Calcium Level 8.7 mg/dL Phosphorus Level 3.1 mg/dL Magnesium Level 1.8 mg/dL Albumin 1.8 g/dL Imaging: KUB 03/07/18 IMPRESSION: Dilated small bowel loops are identified within the central abdomen with suggestion of mild wall thickening. Consideration may be given for an enteritis. An ileus versus developing small bowel obstruction may have similar appearance. CT A/P IMPRESSION: 1. Dilated small bowel loops most suggestive of small bowel obstruction without definite transition point visualized due to limited evaluation secondary to the lack of contrast opacification of small bowel loops as well as moderate to large volume abdominal ascites. Short-term follow-up radiographs may be of benefit to assess partial versus complete obstruction. 2. Suggestion of cirrhosis with abdominal ascites. No splenomegaly. Small left pleural effusion which appears loculated. Left-sided thoracostomy tube is partially profiled. Bibasilar subsegmental atelectasis versus infiltrates. 3. Indeterminate splenic lesion measuring 2.9 cm. Further evaluation with a contrast-enhanced CT study may be of benefit. 4. Fusiform thickening of the left adrenal gland may be secondary to adrenal hyperplasia. Attention on follow-up exams is recommended. 5. Nodular thickening is identified along the ventral abdominal wall in the supraumbilical region with nodules measuring up to 14 mm. PE: GEN: NAD LUNGS: CTAB HEART: RRR ABD: distended, tight, not particularly tender, BS+ (mostly to left) NEURO/PSYCH: A & O �3 A/P: Metastatic ovarian cancer, ESRD on HD, anemia N/v Ascites w/ past paracentesis Abnormal KUB/CT - ?ileus/SBO, additional findings as above -- Plans for paracentesis this afternoon. Consider trial of clears after. Dr. Murdock will see today. CAROL GOMEZ Mar 08, 2018 11:00
--- NOTE | 2018-03-08 11:07 | PDOC ---
SUBJECTIVE ROS Follow-up for ESRD on hemodialysis Monday Patient claims she does not get much sleep or rest of review. Her nausea vomiting is improved since yesterday but she was only able to take ice chips. Plans for paracentesis noted today. CVS: no Orthopnea, no CP RESP: no SOB, no GARCIA GI: min Nausea, no Vomiting : no Dysuria, no Urgency OBJECTIVE Vital Signs Vital Signs Date Time Temp Pulse Resp B/P (MAP) Pulse Ox O2 Delivery O2 Flow Rate FiO2 03/08/18 10:54 99.8 102 18 141/91 (108) 95 Nasal Cannula 99.8 03/07/18 23:07 2.0 I & 0 Intake and Output 03/08/18 07:01 Intake Total 930 ml Output Total 0 ml Balance 930 ml Intake Oral 930 ml Output Urine Total 0 ml PHYSICAL EXAM Physical Exam GEN: Awake, Oriented x 3, In no distress, chronically ill-appearing white female EYES: Vision Unchanged, Conjunctiva Normal EN: No EN Drainage, Mucous Membranes moist NECK: no JVD, min JVP, Supple, no Thyromegaly CVS: S1S2, soft Murmur, No Gallop, No Rub,+ Edema RESP: Bilateral basal Rales, no Rhonchi,no Acc. Muscle Use GI: BS + ve, NO Bruit, Non Tender, Non Distended : no CVA tenderness, no Suprapubic Tenderness DIAGNOSIS/ASSESSMENT Assessment & Plan ESRD : Dialysis as below F 180 NR 3.5 Hrs 3 K 2.5 Ca 140 Na 35 HC03 Qb 350 + Qd 500+ Heparin 0 Units Uf 0-1 Kgs or to dry weight as tolerated May give 25-50 gms of 25% Albumin if needed to maintain Hemodynamic stability Treatment plan reviewed and discussed with portable grinding machine operator Poorly functioning hemodialysis catheter: This appears to have been changed out. And works well so far Anemia: Epogen as ordered. Transfuse with next HD as needed. She could benefit from some intravenous iron however surgeons to elevated for the same currently. HTN: Current BP meds reviewed. See orders for changes. Possible intravascular volume depletion cannot be ruled out. Probably due to poor by mouth intake Edema lower extremity: Suspect due to cirrhosis/liver infiltration by tumor and associated severe hypoalbuminemia IV albumin as ordered Bone & Mineral: Follow phosphorus levels and alter binder regimen as needed. Current by mouth intake is minimal and phosphorus is well controlled Discussed Plan of Care and prognosis etc. at length withpt COMMENT/RELEVANT DATA Meds Current Medications Medications (Trade) Dose Ordered Sig/Nazia Start Time Stop Time Status Last Admin Dose Admin Albumin Human 200 ml @ 200 mls/hr 1X PRN PRN 03/07/18 08:00 03/07/18 13:59 DC Calcium Acetate (Phoslo) 667 mg TIDWMEALS 03/06/18 12:00 03/07/18 13:12 667 MG Calcium Gluconate (Calcium Gluconate) 1,000 mg 1X ONCE 03/05/18 22:15 03/05/18 22:16 DC 03/05/18 23:23 1,000 MG Carvedilol (Coreg) 6.25 mg BIDWMEALS 03/06/18 12:00 03/07/18 17:10 6.25 MG Cefazolin Sodium 50 ml @ 100 mls/hr 1X ONCE 03/06/18 10:30 03/06/18 10:59 DC 03/06/18 10:11 100 MLS/HR Clonidine HCl (Catapres) 0.1 mg BID 03/06/18 12:00 03/07/18 13:13 0.1 MG Darbepoetin Taran (Aranesp) 60 mcg WEEKLYHS 03/06/18 21:00 03/06/18 20:52 60 MCG Dexamethasone (Decadron) 12 mg DAILY 03/09/18 09:00 Famotidine (Pepcid) 20 mg QHS 03/06/18 21:00 03/07/18 13:15 DC 03/06/18 20:51 20 MG Fentanyl (Duragesic 50mcg/ Hr Patch) 1 patch Q72H 03/06/18 21:30 03/06/18 21:08 1 PATCH Fentanyl Citrate (Fentanyl 2ml Vial) 100 mcg 1X ONCE 03/06/18 10:30 03/06/18 10:35 DC 03/06/18 10:11 100 MCG Ferrous Sulfate (Iron Oral Solution) 300 mg DAILY 03/08/18 10:30 Fluticasone Propionate (Flonase) 1 spray DAILY 03/06/18 12:00 03/06/18 12:16 1 SPRAY Guaifenesin/ Codeine Phosphate (Robitussin Ac) 10 ml PRN Q4HRS PRN 03/06/18 11:45 Heparin Sodium (Porcine) (Heparin Sodium) 4,200 unit 1X ONCE 03/06/18 10:30 03/06/18 10:35 DC 03/06/18 10:11 4,200 UNIT Info (PHARMACY MONITORING -- do not chart) 1 each PRN DAILY PRN 03/07/18 08:00 UNV Lidocaine/ Epinephrine (LIDOCAINE 1%-EPI 1:100,000 Multi-Dose) 20 ml 1X ONCE 03/06/18 10:30 03/06/18 10:35 DC 03/06/18 10:09 9 ML Lorazepam (Ativan) 0.5 mg PRN Q12HRS PRN 03/06/18 11:30 Magnesium Sulfate 50 ml @ 25 mls/hr PRN DAILY PRN 03/06/18 13:45 Midazolam HCl (Versed) 2 mg 1X ONCE 03/06/18 10:30 03/06/18 10:35 DC 03/06/18 10:11 2 MG Multivitamins (Thera M Plus) 1 tab DAILY 03/06/18 12:00 03/07/18 13:12 1 TAB Non-Formulary Medication (Melatonin ) 1 tab QHS 03/06/18 21:00 UNV Ondansetron HCl (Zofran Odt) 8 mg PRN Q8HRS PRN 03/06/18 11:30 03/07/18 21:42 8 MG Ondansetron HCl (Zofran) 4 mg 1X ONCE 03/05/18 22:45 03/05/18 22:55 DC 03/05/18 22:55 4 MG Oxycodone HCl (Roxicodone) 20 mg PRN Q4HRS PRN 03/06/18 06:15 Pantoprazole Sodium (PROTONIX VIAL for IV PUSH) 40 mg DAILYAC 03/08/18 07:30 03/08/18 08:11 40 MG Pantoprazole Sodium (Protonix) 40 mg DAILYAC 03/08/18 07:30 03/08/18 07:30 DC Polyethylene Glycol (miraLAX PACKET) 17 gm QHS 03/06/18 21:00 03/06/18 20:57 17 GM Prochlorperazine Edisylate (Compazine) 10 mg PRN Q6HRS PRN 03/06/18 12:45 03/07/18 03:05 10 MG Sennosides (Senna) 8.6 mg DAILY 03/06/18 12:00 03/07/18 13:11 8.6 MG Sertraline HCl (Zoloft) 150 mg DAILY 03/06/18 12:00 03/07/18 13:11 150 MG Sodium Polystyrene Sulfonate (Kayexalate) 30 gm 1X ONCE 03/05/18 22:15 03/05/18 22:16 DC 03/05/18 23:23 30 GM Sodium Bicarbonate (Sodium Bicarb Adult 8.4% Syr) 50 meq 1X ONCE 03/05/18 22:15 03/05/18 22:16 DC 03/05/18 23:23 50 MEQ Sodium Chloride 1,000 ml @ 400 mls/hr Q2H30M PRN 03/07/18 07:51 03/07/18 19:50 DC Lab Laboratory Tests Test 03/07/18 16:35 03/08/18 05:15 Prothrombin Time 14.9 SEC (11.7-14.0) Prothromb Time International Ratio 1.2 (0.8-1.1) Activated Partial Thromboplast Time 33 SEC (24-38) White Blood Count 12.3 x10^3/uL (4.0-11.0) Red Blood Count 2.51 x10^6/uL (3.50-5.40) Hemoglobin 7.1 g/dL (12.0-15.5) Hematocrit 22.8 % (36.0-47.0) Mean Corpuscular Volume 91 fL (79-100) Mean Corpuscular Hemoglobin 28 pg (25-35) Mean Corpuscular Hemoglobin Concent 31 g/dL (31-37) Red Cell Distribution Width 20.0 % (11.5-14.5) Platelet Count 362 x10^3/uL (140-400) Sodium Level 142 mmol/L (136-145) Potassium Level 3.9 mmol/L (3.5-5.1) Chloride Level 102 mmol/L (98-107) Carbon Dioxide Level 30 mmol/L (21-32) Anion Gap 10 (6-14) Blood Urea Nitrogen 34 mg/dL (7-20) Creatinine 3.1 mg/dL (0.6-1.0) Estimated GFR (Cockcroft-Gault) 15.5 Glucose Level 79 mg/dL (70-99) Calcium Level 8.7 mg/dL (8.5-10.1) Phosphorus Level 3.1 mg/dL (2.6-4.7) Magnesium Level 1.8 mg/dL (1.8-2.4) Albumin 1.8 g/dL (3.4-5.0) Results All relevant outside records, renal labs, imaging studies, telemetry/EKG's were reviewed. JIGAR OLIVER MD Mar 08, 2018 11:07
[2018-03-08] MEDS: ALBUMIN HUMAN 25% 100 ML IV SCH ×2 (12:22→21:02)
[2018-03-08] MEDS: oxyCODONE IR 5 MG TABLET PO PRN (14:45)
[2018-03-08] MEDS ORDERED: 0.9 % SODIUM CHLORIDE 10 ML DISP.SYRIN. IV PRN ×2 (15:00)
[2018-03-08] MEDS ORDERED: IV NORMAL SALINE 1000ML BAG 1,000 ML IV PRN (15:00)
--- NOTE | 2018-03-08 15:03 | NUR ---
SW following. ZACHARY met with pt and pt's this morning to discuss return to [facility]. Awaiting PT/OT. BPCI packet discussed and given to pt. ZACHARY will continue to follow.
--- NOTE | 2018-03-08 16:10 | RAD ---
Ultrasound-guided paracentesis 03/08/2018 4:04 PM Procedure: The risks and benefits of the procedure were discussed the patient. Informed consent was obtained. A timeout procedure was performed. Sonographic evaluation of the abdomen was performed demonstrating ascites . Some loculation was found to be present. The left lower quadrant was prepped and draped using maximum sterile barrier technique. 1% lidocaine without epinephrine was administered for local anesthesia. Real-time ultrasonographic guidance was used in passing a 5 [place] UGOBEeh catheter into the fluid collection. 0.8 L of serous ascites was removed. The catheter was removed and pressure held to achieve hemostasis. A sterile dressing was applied. Impression: Successful ultrasound-guided paracentesis
[2018-03-08] MEDS ORDERED: DIALYSIS PATIENT. MC PRN ×2 (21:15)
[2018-03-09] MEDS: ALBUMIN HUMAN 25% 100 ML IV SCH ×4 (01:19→17:28)
[2018-03-09] MEDS: oxyCODONE IR 5 MG TABLET PO PRN ×3 (01:24→20:54)
[2018-03-09] MEDS: ONDANSETRON ODT 4 MG TAB.RAPDIS. PO PRN ×3 (01:24→20:55)
[2018-03-09 06:39] VITALS: BP 155/94
[2018-03-09] MEDS: PANTOPRAZOLE IV PUSH 40 MG VIAL. IVP SCH (08:19)
[2018-03-09] MEDS: cloNIDine HCL 0.1 MG TABLET PO SCH ×2 (08:19→20:54)
[2018-03-09] MEDS: CALCIUM ACETATE 667 MG CAPSULE PO SCH ×3 (08:20→17:00)
[2018-03-09] MEDS: MULTIVITAMIN with MINERAL TABLET. PO SCH (08:20)
[2018-03-09] MEDS: SENNOSIDES 8.6 MG TABLET PO SCH (08:20)
[2018-03-09] MEDS: FERROUS SULFATE ORAL 300 MG/5 ML SOLUTION. PO SCH (08:20)
[2018-03-09] MEDS: CARVEDILOL 6.25 MG TABLET. PO SCH ×2 (08:20→17:28)
[2018-03-09] MEDS: SERTRALINE 50 MG TABLET. PO SCH (08:20)
[2018-03-09] MEDS: DEXAMETHASONE 4 MG TABLET PO SCH (08:20)
[2018-03-09] MEDS: FLUTICASONE 50MCG/NASAL SPRAY 16GM BOTTLE. NS SCH (08:21)
[2018-03-09] MEDS: POLYETHYLENE GLYCOL 3350 17 GM PACKET. PO SCH (08:25)
[2018-03-09 08:29] LABS: ALBUMIN 3.2 g/dL (3.4-5.0); CALCIUM 8.4 mg/dL (8.5-10.1); CREATININE 2.5 mg/dL (0.6-1.0); GFR 19.9; PHOSPHORUS 3.3 mg/dL (2.6-4.7)
--- NOTE | 2018-03-09 09:57 | PDOC ---
PROGRESS NOTES Chief Complaint Chief Complaint IMPRESSION Hyperkalemia Ovarian Cancer, METASTATIC End Stage Renal Disease, HD dependent Tachycardia small bowel obstruction by ct Ascites - s/p paracentesis (800cc) Abnormal KUB/CT - ?ileus/SBO History of Present Illness History of Present Illness PT seen and examined, spoke with nursing staff. Observed CDI bandage. CHOSE NO Hospice options , FEELS VERY WEAK, not much intake Vitals Vitals Vital Signs Date Time Temp Pulse Resp B/P (MAP) Pulse Ox O2 Delivery O2 Flow Rate FiO2 03/09/18 08:20 109 155/94 03/09/18 08:19 Nasal Cannula 2.0 03/09/18 06:39 98.0 19 99 98.0 Physical Exam Physical Exam General: ALERT Heart: Other (tachycardia at 111 bpm) Abdomen: SOFT GEN: NAD LUNGS: CTAB HEART: RRR There is a small left pleural effusion. There is adjacent compressive atelectasis versus infiltrate. There is subsegmental atelectasis at the right lung base. There is a 6 cm solid noncalcified pulmonary nodule in the right middle lobe (series 2, image 9). A left lower lobe thoracostomy tube is partially profiled. There is suggestion of pleural thickening at the left lung base. Evaluation of the solid abdominal viscera is limited by lack of intravenous contrast. There is mild nodular contour of the hepatic parenchyma which may reflect underlying hepatic disease such as cirrhosis. Spleen is nonenlarged. There is focal hypoattenuation along the superior aspect of the spleen measuring 2.9 cm which is inadequately assessed without contrast. There is nodular thickening of the left adrenal gland which is indeterminate measuring up to 9 mm. A right adrenal gland is normal in appearance. There is mild atrophy of the pancreas. No peripancreatic inflammatory changes are identified. Gallbladder appears surgically absent. Abdominal aorta is normal in course and caliber with mild calcified atheromatous plaque. There are no pathologically enlarged lymph nodes in abdomen and pelvis. There is moderate to large volume abdominal ascites. Mild renal parenchymal atrophy. Duplex right renal collecting system is identified with prominence of the right renal collecting system and right ureter. Findings may be secondary to reflux. There is no hydronephrosis of the inferior moiety. Left kidney appears normal. No definite contour deforming renal masses are identified. Minimal oral contrast is noted. Differential air-fluid levels are identified. There are dilated small bowel loops measuring up to 3.6 cm. Large bowel is normal in caliber with moderate amount of stool. Stomach is normal in appearance. Evaluation for transition point is limited, however it does appear that the distal terminal ileum is somewhat decompressed. There is nodular thickening along the ventral abdominal wall the supra umbilical region measuring up to 14 mm. Findings are indeterminate and correlation with any prior surgical history is recommended. Anasarca is noted with edema and bilateral flanks. Pelvis evaluation is limited by ascites. Urinary bladder is within normal limits given degree of distention. No suspicious adnexal masses are identified. Supervision the left adnexa measures 2.1 cm suggestive of a dominant follicle. As osseous abnormality is identified. IMPRESSION: 1. Dilated small bowel loops most suggestive of small bowel obstruction without definite transition point visualized due to limited evaluation secondary to the lack of contrast opacification of small bowel loops as well as moderate to large volume abdominal ascites. Short-term follow-up radiographs may be of benefit to assess partial versus complete obstruction. 2. Suggestion of cirrhosis with abdominal ascites. No splenomegaly. Small left pleural effusion which appears loculated. Left-sided thoracostomy tube is partially profiled. Bibasilar subsegmental atelectasis versus infiltrates. 3. Indeterminate splenic lesion measuring 2.9 cm. Further evaluation with a contrast-enhanced CT study may be of benefit. 4. Fusiform thickening of the left adrenal gland may be secondary to adrenal hyperplasia. Attention on follow-up exams is recommended. 5. Nodular thickening is identified along the ventral abdominal wall in the supraumbilical region with nodules measuring up to 14 mm. Electronically signed by: Nisa Trent MD (03/07/2018 3:45 PM) [id number] General: Alert, Cooperative, mild distress Heart: Regular rate, Normal S1, Other (tachycardia at 119 bpm) Lungs: Clear Abdomen: No hepatosplenomegaly, Other (POST PARACENTESIS) Extremities: No clubbing, No cyanosis, Normal pulses Labs LABS REASON: vomiting, ?enteritis/ileus on KUB PROCEDURE: CT ABDOMEN PELVIS WO CONTRAST PQRS Compliance Statement: One or more of the following individualized dose reduction techniques were utilized for this examination: 1. Automated exposure control 2. Adjustment of the mA and/or kV according to patient size 3. Use of iterative reconstruction technique CT abdomen/pelvis without contrast 03/07/2018 3:10 PM INDICATION: Vomiting. COMPARISON: Abdominal radiograph March 07, 2018 TECHNIQUE: Multiple axial CT images of the abdomen and pelvis were obtained without intravenous contrast. Coronal and sagittal reformats are provided. FINDINGS: There is a small left pleural effusion. There is adjacent compressive atelectasis versus infiltrate. There is subsegmental atelectasis at the right lung base. There is a 6 cm solid noncalcified pulmonary nodule in the right middle lobe (series 2, image 9). A left lower lobe thoracostomy tube is partially profiled. There is suggestion of pleural thickening at the left lung base. Evaluation of the solid abdominal viscera is limited by lack of intravenous contrast. There is mild nodular contour of the hepatic parenchyma which may reflect underlying hepatic disease such as cirrhosis. Spleen is nonenlarged. There is focal hypoattenuation along the superior aspect of the spleen measuring 2.9 cm which is inadequately assessed without contrast. There is nodular thickening of the left adrenal gland which is indeterminate measuring up to 9 mm. A right adrenal gland is normal in appearance. There is mild atrophy of the pancreas. No peripancreatic inflammatory changes are identified. Gallbladder appears surgically absent. Abdominal aorta is normal in course and caliber with mild calcified atheromatous plaque. There are no pathologically enlarged lymph nodes in abdomen and pelvis. There is moderate to large volume abdominal ascites. Mild renal parenchymal atrophy. Duplex right renal collecting system is identified with prominence of the right renal collecting system and right ureter. Findings may be secondary to reflux. There is no hydronephrosis of the inferior moiety. Left kidney appears normal. No definite contour deforming renal masses are identified. Minimal oral contrast is noted. Differential air-fluid levels are identified. There are dilated small bowel loops measuring up to 3.6 cm. Large bowel is normal in caliber with moderate amount of stool. Stomach is normal in appearance. Evaluation for transition point is limited, however it does appear that the distal terminal ileum is somewhat decompressed. There is nodular thickening along the ventral abdominal wall the supra umbilical region measuring up to 14 mm. Findings are indeterminate and correlation with any prior surgical history is recommended. Anasarca is noted with edema and bilateral flanks. Pelvis evaluation is limited by ascites. Urinary bladder is within normal limits given degree of distention. No suspicious adnexal masses are identified. Supervision the left adnexa measures 2.1 cm suggestive of a dominant follicle. As osseous abnormality is identified. IMPRESSION: 1. Dilated small bowel loops most suggestive of small bowel obstruction without definite transition point visualized due to limited evaluation secondary to the lack of contrast opacification of small bowel loops as well as moderate to large volume abdominal ascites. Short-term follow-up radiographs may be of benefit to assess partial versus complete obstruction. 2. Suggestion of cirrhosis with abdominal ascites. No splenomegaly. Small left pleural effusion which appears loculated. Left-sided thoracostomy tube is partially profiled. Bibasilar subsegmental atelectasis versus infiltrates. 3. Indeterminate splenic lesion measuring 2.9 cm. Further evaluation with a contrast-enhanced CT study may be of benefit. 4. Fusiform thickening of the left adrenal gland may be secondary to adrenal hyperplasia. Attention on follow-up exams is recommended. 5. Nodular thickening is identified along the ventral abdominal wall in the supraumbilical region with nodules measuring up to 14 mm. Electronically signed by: Nisa Trent MD (03/07/2018 3:45 PM) [id number] DICTATED and SIGNED BY: NISA TRENT MD DATE: 03/07/18 1534 Laboratory Tests Test 03/09/18 07:55 Sodium Level 140 mmol/L (136-145) Potassium Level 4.0 mmol/L (3.5-5.1) Chloride Level 99 mmol/L (98-107) Carbon Dioxide Level 25 mmol/L (21-32) Anion Gap 16 (6-14) Blood Urea Nitrogen 27 mg/dL (7-20) Creatinine 2.5 mg/dL (0.6-1.0) Estimated GFR (Cockcroft-Gault) 19.9 Glucose Level 73 mg/dL (70-99) Calcium Level 8.4 mg/dL (8.5-10.1) Phosphorus Level 3.3 mg/dL (2.6-4.7) Magnesium Level 1.9 mg/dL (1.8-2.4) Albumin 3.2 g/dL (3.4-5.0) Assessment and Plan Assessmemt and Plan Problems Medical Problems: (1) Dialysis catheter clot or failure Status: Acute (2) Serum potassium elevated Status: Acute Comment Review of Relevant I have reviewed the following items arden (where applicable) has been applied. Labs Laboratory Tests Test 03/07/18 16:35 03/08/18 05:15 03/09/18 07:55 Prothrombin Time 14.9 SEC (11.7-14.0) Prothromb Time International Ratio 1.2 (0.8-1.1) Activated Partial Thromboplast Time 33 SEC (24-38) White Blood Count 12.3 x10^3/uL (4.0-11.0) Red Blood Count 2.51 x10^6/uL (3.50-5.40) Hemoglobin 7.1 g/dL (12.0-15.5) Hematocrit 22.8 % (36.0-47.0) Mean Corpuscular Volume 91 fL (79-100) Mean Corpuscular Hemoglobin 28 pg (25-35) Mean Corpuscular Hemoglobin Concent 31 g/dL (31-37) Red Cell Distribution Width 20.0 % (11.5-14.5) Platelet Count 362 x10^3/uL (140-400) Sodium Level 142 mmol/L (136-145) 140 mmol/L (136-145) Potassium Level 3.9 mmol/L (3.5-5.1) 4.0 mmol/L (3.5-5.1) Chloride Level 102 mmol/L (98-107) 99 mmol/L (98-107) Carbon Dioxide Level 30 mmol/L (21-32) 25 mmol/L (21-32) Anion Gap 10 (6-14) 16 (6-14) Blood Urea Nitrogen 34 mg/dL (7-20) 27 mg/dL (7-20) Creatinine 3.1 mg/dL (0.6-1.0) 2.5 mg/dL (0.6-1.0) Estimated GFR (Cockcroft-Gault) 15.5 19.9 Glucose Level 79 mg/dL (70-99) 73 mg/dL (70-99) Calcium Level 8.7 mg/dL (8.5-10.1) 8.4 mg/dL (8.5-10.1) Phosphorus Level 3.1 mg/dL (2.6-4.7) 3.3 mg/dL (2.6-4.7) Magnesium Level 1.8 mg/dL (1.8-2.4) 1.9 mg/dL (1.8-2.4) Albumin 1.8 g/dL (3.4-5.0) 3.2 g/dL (3.4-5.0) Laboratory Tests Test 03/09/18 07:55 Sodium Level 140 mmol/L (136-145) Potassium Level 4.0 mmol/L (3.5-5.1) Chloride Level 99 mmol/L (98-107) Carbon Dioxide Level 25 mmol/L (21-32) Anion Gap 16 (6-14) Blood Urea Nitrogen 27 mg/dL (7-20) Creatinine 2.5 mg/dL (0.6-1.0) Estimated GFR (Cockcroft-Gault) 19.9 Glucose Level 73 mg/dL (70-99) Calcium Level 8.4 mg/dL (8.5-10.1) Phosphorus Level 3.3 mg/dL (2.6-4.7) Magnesium Level 1.9 mg/dL (1.8-2.4) Albumin 3.2 g/dL (3.4-5.0) Medications Current Medications Ondansetron HCl (Zofran) 4 mg PRN Q8HRS PRN IV NAUSEA/VOMITING Last administered on 03/06/18at 05:34; Start 03/05/18 at 22:00; Stop 03/06/18 at 21:59 ; Status DC Fentanyl Citrate (Fentanyl 2ml Vial) 50 mcg PRN Q1HR PRN IV PAIN Last administered on 03/06/18at 05:35; Start 03/05/18 at 22:00; Stop 03/06/18 at 21:59 ; Status DC Calcium Gluconate (Calcium Gluconate) 1,000 mg 1X ONCE IVP Last administered on 03/05/18at 23:23; Start 03/05/18 at 22:15; Stop 03/05/18 at 22:16; Status DC Sodium Bicarbonate (Sodium Bicarb Adult 8.4% Syr) 50 meq 1X ONCE IV Last administered on 03/05/18at 23:23; Start 03/05/18 at 22:15; Stop 03/05/18 at 22 :16; Status DC Sodium Polystyrene Sulfonate (Kayexalate) 30 gm 1X ONCE PO Last administered on 03/05/18at 23:23; Start 03/05/18 at 22:15; Stop 03/05/18 at 22:16; Status DC Ondansetron HCl (Zofran) 4 mg 1X ONCE IV Last administered on 03/05/18at 22:55 ; Start 03/05/18 at 22:45; Stop 03/05/18 at 22:55; Status DC Prochlorperazine Edisylate (Compazine) 10 mg PRN Q6HRS PRN IM NAUSEA/VOMITING; Start 03/06/18 at 06:15; Stop 03/06/18 at 12:32; Status DC Oxycodone HCl (Roxicodone) 10 mg PRN Q4HRS PRN PO PAIN MILD TO MOD Last administered on 03/09/18at 08:19; Start 03/06/18 at 06:15 Oxycodone HCl (Roxicodone) 20 mg PRN Q4HRS PRN PO PAIN MOD TO SEV; Start at 06:15 Lidocaine/ Epinephrine (LIDOCAINE 1%-EPI 1:100,000 Multi-Dose) 20 ml STK-MED ONCE .ROUTE ; Start 03/06/18 at 09:11; Stop 03/06/18 at 09:12; Status DC Cefazolin Sodium 50 ml @ As Directed STK-MED ONCE IV ; Start 03/06/18 at 09:34; Stop 03/06/18 at 09:35; Status DC Midazolam HCl (Versed) 2 mg STK-MED ONCE .ROUTE ; Start 03/06/18 at 09:34; Stop 03/06/18 at 09:35; Status DC Fentanyl Citrate (Fentanyl 2ml Vial) 100 mcg STK-MED ONCE .ROUTE ; Start at 09:34; Stop 03/06/18 at 09:35; Status DC Heparin Sodium (Porcine) (Heparin Sodium) 10,000 unit STK-MED ONCE .ROUTE ; Start 03/06/18 at 09:44; Stop 03/06/18 at 09:46; Status DC Midazolam HCl (Versed) 2 mg 1X ONCE IV Last administered on 03/06/18at 10:11; Start 03/06/18 at 10:30; Stop 03/06/18 at 10:35; Status DC Fentanyl Citrate (Fentanyl 2ml Vial) 100 mcg 1X ONCE IV Last administered on at 10:11; Start 03/06/18 at 10:30; Stop 03/06/18 at 10:35; Status DC Lidocaine/ Epinephrine (LIDOCAINE 1%-EPI 1:100,000 Multi-Dose) 20 ml 1X ONCE IJ Last administered on 03/06/18 10:09; Start 03/06/18 at 10:30; Stop 03/06/18 at 10:35; Status DC Cefazolin Sodium 50 ml @ 100 mls/hr 1X ONCE IV Last administered on 03/06/18at 10:11; Start 03/06/18 at 10:30; Stop 03/06/18 at 10:59; Status DC Heparin Sodium (Porcine) (Heparin Sodium) 4,200 unit 1X ONCE INT CAT Last administered on 03/06/18 10:11; Start 03/06/18 at 10:30; Stop 03/06/18 at 10:35; Status DC Clonidine HCl (Catapres) 0.1 mg BID PO Last administered on 03/09/18 08:19; Start 03/06/18 at 12:00 Dexamethasone (Decadron) 16 mg DAILY PO Last administered on 03/07/18 13:12; Start 03/06/18 at 12:00; Stop 03/08/18 at 09:00; Status DC Fentanyl (Duragesic 50mcg/ Hr Patch) 1 patch Q3DAYS TD ; Start 03/06/18 at 21:00 ; Stop 03/06/18 at 21:05; Status DC Lorazepam (Ativan) 0.5 mg PRN Q12HRS PRN PO ANXIETY / AGITATION; Start 03/06/18 at 11:30 Ondansetron HCl (Zofran Odt) 8 mg PRN Q8HRS PRN PO NAUSEA/VOMITING Last administered on 03/09/18 01:24; Start 03/06/18 at 11:30 Calcium Acetate (Phoslo) 667 mg TIDWMEALS PO Last administered on 03/09/18 08: 20; Start 03/06/18 at 12:00 Carvedilol (Coreg) 6.25 mg BIDWMEALS PO Last administered on 03/09/18 08:20; Start 03/06/18 at 12:00 Famotidine (Pepcid) 20 mg QHS PO Last administered on 03/06/18 20:51; Start 03/06/18 at 21:00; Stop 03/07/18 at 13:15; Status DC Fluticasone Propionate (Flonase) 1 spray DAILY NS Last administered on 1/1/ 19at 12:16; Start 03/06/18 at 12:00 Guaifenesin/ Codeine Phosphate (Robitussin Ac) 10 ml PRN Q4HRS PRN PO COUGH; Start 03/06/18 at 11:45 Non-Formulary Medication (Melatonin ) 1 tab QHS PO ; Start 03/06/18 at 21:00; Status UNV Multivitamins (Thera M Plus) 1 tab DAILY PO Last administered on 03/09/18at 08:20 ; Start 03/06/18 at 12:00 Polyethylene Glycol (miraLAX PACKET) 17 gm QHS PO Last administered on at 08:25; Start 03/06/18 at 21:00 Sennosides (Senna) 8.6 mg DAILY PO Last administered on 03/09/18at 08:20; Start 03/06/18 at 12:00 Sertraline HCl (Zoloft) 150 mg DAILY PO Last administered on 03/09/18at 08:20; Start 03/06/18 at 12:00 Prochlorperazine Edisylate (Compazine) 10 mg PRN Q6HRS PRN IV NAUSEA/VOMITING Last administered on 03/07/18at 03:05; Start 03/06/18 at 12:45 Darbepoetin Taran (Aranesp) 60 mcg WEEKLYHS SQ Last administered on 03/06/18at 20: 52; Start 03/06/18 at 21:00 Magnesium Sulfate 50 ml @ 25 mls/hr PRN DAILY PRN IV for Mag < 1.7 on am labs; Start 03/06/18 at 13:45 Sodium Chloride 1,000 ml @ 1,000 mls/hr Q1H PRN IV hypotension; Start 03/06/18 at 12:30; Stop 03/06/18 at 18:29; Status DC Sodium Chloride 1,000 ml @ 400 mls/hr Q2H30M PRN IV PATENCY; Start 03/06/18 at 12:30; Stop 03/06/18 at 20:00; Status DC Info (PHARMACY MONITORING -- do not chart) 1 each PRN DAILY PRN MC SEE COMMENTS ; Start 03/06/18 at 15:00; Status UNV Info (PHARMACY MONITORING -- do not chart) 1 each PRN DAILY PRN MC SEE COMMENTS ; Start 03/06/18 at 15:00; Stop 03/07/18 at 16:17; Status DC Fentanyl (Duragesic 50mcg/ Hr Patch) 1 patch Q72H TD Last administered on at 21:08; Start 03/06/18 at 21:30 Sodium Chloride 1,000 ml @ 1,000 mls/hr Q1H PRN IV hypotension; Start 03/07/18 at 07:51; Stop 03/07/18 at 13:50; Status DC Albumin Human 200 ml @ 200 mls/hr 1X PRN PRN IV Hypotension; Start 03/07/18 at 08:00; Stop 03/07/18 at 13:59; Status DC Sodium Chloride 1,000 ml @ 400 mls/hr Q2H30M PRN IV PATENCY; Start 03/07/18 at 07:51; Stop 03/07/18 at 19:50; Status DC Info (PHARMACY MONITORING -- do not chart) 1 each PRN DAILY PRN MC SEE COMMENTS ; Start 03/07/18 at 08:00 Info (PHARMACY MONITORING -- do not chart) 1 each PRN DAILY PRN MC SEE COMMENTS ; Start 03/07/18 at 08:00; Status UNV Dexamethasone (Decadron) 12 mg DAILY PO ; Start 03/07/18 at 09:30; Stop 03/07/18 at 09:33; Status DC Dexamethasone (Decadron) 12 mg DAILY PO Last administered on 03/09/18at 08:20; Start 03/09/18 at 09:00 Pantoprazole Sodium (Protonix) 40 mg DAILYAC PO ; Start 03/08/18 at 07:30; Stop 03/08/18 at 07:30; Status DC Pantoprazole Sodium (PROTONIX VIAL for IV PUSH) 40 mg DAILYAC IVP Last administered on 03/09/18at 08:19; Start 03/08/18 at 07:30 Ferrous Sulfate (Iron Oral Solution) 300 mg DAILY PO Last administered on at 08:20; Start 03/08/18 at 10:30 Albumin Human 100 ml @ 100 mls/hr Q6HRS IV Last administered on 03/09/18at 06:21 ; Start 03/08/18 at 12:00; Stop 03/09/18 at 18:59 Sodium Chloride 1,000 ml @ 1,000 mls/hr Q1H PRN IV hypotension; Start 03/08/18 at 15:00; Stop 03/08/18 at 21:21; Status DC Sodium Chloride (Normal Saline Flush) 10 ml 1X PRN PRN IV AP catheter pack; Start 03/08/18 at 15:00; Stop 03/09/18 at 14:59 Sodium Chloride (Normal Saline Flush) 10 ml 1X PRN PRN IV NUT GRADER catheter pack; Start 03/08/18 at 15:00; Stop 03/09/18 at 14:59 Info (PHARMACY MONITORING -- do not chart) 1 each PRN DAILY PRN MC SEE COMMENTS ; Start 03/08/18 at 21:15 Info (PHARMACY MONITORING -- do not chart) 1 each PRN DAILY PRN MC SEE COMMENTS ; Start 03/08/18 at 21:15 Active Scripts Active Reported Zoloft (Sertraline Hcl) 100 Mg Tablet 150 Mg PO DAILY Senna Lax (Sennosides) 8.6 Mg Tablet 8.6 Mg PO DAILY Proair Hfa (Albuterol Sulfate) 8.5 Gm Hfa.aer.ad 2 Puff INH PRN Q6HRS PRN Miralax (Polyethylene Glycol 3350) 17 Gm Powd.pack 1 Pkt PO HS Oxycodone Hcl 5 Mg Capsule 20 Mg PO PRN Q4HRS PRN Oxycodone Hcl 5 Mg Capsule 10 Mg PO PRN Q4HRS PRN Ondansetron Odt (Ondansetron) 4 Mg Tab.rapdis 8 Mg PO PRN Q8HRS PRN One-Daily Multi-Vitamin (Multivitamin) 1 Each Tablet 1 Each PO HS Melatonin 3 Mg Tablet 1 Tab PO QHS Ativan (Lorazepam) 0.5 Mg Tablet 0.5 Mg PO PRN Q12HRS PRN Guaifenesin-Codeine Syrup (Guaifenesin/Codeine Phosphate) 118 Ml Liquid 10 Ml PO PRN Q4HRS PRN Flonase Allergy Relief (Fluticasone Propionate) 9.9 Ml [place].susp 1 Sprays NS DAILY FENTANYL 50mcg/hr (Fentanyl) 1 Each Patch.td72 1 Patch TP Q3DAYS Famotidine 40 Mg Tablet 20 Mg PO HS Dexamethasone 4 Mg Tablet 4 Tab PO DAILY Clonidine Hcl 0.1 Mg Tablet 0.1 Mg PO BID Carvedilol 25 Mg Tablet 6.25 Mg PO BIDWMEALS Calcium Acetate 667 Mg Tablet 667 Mg PO TIDWMEALS Vitals/I & O Vital Sign - Last 24 Hours 03/08/18 03/08/18 03/08/18 03/08/18 10:54 14:00 14:15 14:45 Temp 99.8 99.8 Pulse 102 104 104 Resp 18 16 20 B/P (MAP) 141/91 (108) 147/88 (107) 143/82 (102) Pulse Ox 95 96 96 O2 Delivery Nasal Cannula Nasal Cannula Nasal Cannula Nasal Cannula O2 Flow Rate 3.0 3.0 2.0 03/08/18 03/08/18 03/08/18 03/08/18 14:49 19:00 20:30 21:07 Temp 97.6 98.4 97.6 98.4 Pulse 94 104 104 Resp 18 20 B/P (MAP) 149/82 (104) 139/82 (101) 139/82 Pulse Ox 96 96 O2 Delivery Nasal Cannula Nasal Cannula Nasal Cannula O2 Flow Rate 3.0 2.0 2.0 03/08/18 03/09/18 03/09/18 03/09/18 23:00 01:24 02:52 03:00 Temp 98.7 98.7 Pulse 105 Resp 18 18 18 B/P (MAP) 138/82 (100) Pulse Ox 99 99 O2 Delivery Nasal Cannula Nasal Cannula Nasal Cannula Room Air O2 Flow Rate 2.0 2.0 2.0 03/09/18 03/09/18 03/09/18 03/09/18 06:39 07:55 08:19 08:19 Temp 98.0 98.0 Pulse 109 109 Resp 19 B/P (MAP) 155/94 (114) 155/94 Pulse Ox 99 O2 Delivery Nasal Cannula Nasal Cannula Nasal Cannula O2 Flow Rate 2.0 2.0 2.0 03/09/18 08:20 Pulse 109 B/P (MAP) 155/94 Intake and Output 03/08/18 03/08/18 03/09/18 15:01 23:01 07:01 Intake Total 0 ml 100 ml 420 ml Output Total 820 ml Balance -820 ml 100 ml 420 ml Nutrition Consultation Dietary Evaluation: Recommendations by RD: Increase Calorie Intake, Protein supplementation Comments: sending ensure clear tid Expected Outcomes/Goals: diet advancement/ tolerance Malnutrition Findings: Food and Nutrition Intake (Mod: <75% est energy req 7days Weight Status: Overweight PURA MARTÍNEZ MD Mar 09, 2018 09:57
[2018-03-09 10:58] VITALS: BP 129/79
--- NOTE | 2018-03-09 11:46 | PDOC ---
SUBJECTIVE ROS Follow-up for ESRD on hemodialysis Monday Patient feels that she has lost a significant amount of strength during her last few days here. Nausea vomiting is better. She is trying some Jell-O this morning she has not had much solid food to eat though. CVS: no Orthopnea, no CP RESP: no SOB, no GARCIA GI: no Nausea, no Vomiting : no Dysuria, no Urgency OBJECTIVE Vital Signs Vital Signs Date Time Temp Pulse Resp B/P (MAP) Pulse Ox O2 Delivery O2 Flow Rate FiO2 03/09/18 10:58 98.3 101 18 129/79 (96) 94 Nasal Cannula 2.0 98.3 I & 0 Intake and Output 03/09/18 07:01 Intake Total 520 ml Output Total 820 ml Balance -300 ml Intake Oral 320 ml IV Total 200 ml Drainage Total 820 ml PHYSICAL EXAM Physical Exam GEN: Awake, Oriented x 3, In no distress, chronically ill-appearing white female EYES: Vision Unchanged, Conjunctiva Normal EN: No EN Drainage, Mucous Membranes moist NECK: no JVD, min JVP, Supple, no Thyromegaly CVS: S1S2, soft Murmur, No Gallop, No Rub,+ Edema RESP: Bilateral basal Rales, no Rhonchi,no Acc. Muscle Use GI: BS + ve, NO Bruit, Non Tender, Non Distended : no CVA tenderness, no Suprapubic Tenderness DIAGNOSIS/ASSESSMENT Assessment & Plan ESRD: Current fluid and E-lyte status does not necessitate emergent need for dialysis. Will re-evaluate for dialysis in the am and continue on Monday schedule. Anemia: Epogen as ordered. Transfuse with next HD as needed. She could benefit from some intravenous iron As outpatient. Blood transfusion may be required if hemoglobin less than 7 in the morningHTN: Current BP meds reviewed. See orders for changes. Possible intravascular volume depletion cannot be ruled out. Probably due to poor by mouth intake Edema lower extremity: Much improved currently especially after IV albumin and ultrafiltration on dialysis Bone & Mineral: Follow phosphorus levels and alter binder regimen as needed. Current by mouth intake is minimal and phosphorus is well controlled Nausea vomiting: Would like to see patient heat better/tolerate solid foods prior to discharge Discussed Plan of Care and prognosis etc. at length withpt and at bedside COMMENT/RELEVANT DATA Meds Current Medications Medications (Trade) Dose Ordered Sig/Nazia Start Time Stop Time Status Last Admin Dose Admin Albumin Human 100 ml @ 100 mls/hr Q6HRS 03/08/18 12:00 03/09/18 18:59 03/09/18 06:21 100 MLS/HR Calcium Acetate (Phoslo) 667 mg TIDWMEALS 03/06/18 12:00 03/09/18 08:20 667 MG Calcium Gluconate (Calcium Gluconate) 1,000 mg 1X ONCE 03/05/18 22:15 03/05/18 22:16 DC 03/05/18 23:23 1,000 MG Carvedilol (Coreg) 6.25 mg BIDWMEALS 03/06/18 12:00 03/09/18 08:20 6.25 MG Cefazolin Sodium 50 ml @ 100 mls/hr 1X ONCE 03/06/18 10:30 03/06/18 10:59 DC 03/06/18 10:11 100 MLS/HR Clonidine HCl (Catapres) 0.1 mg BID 03/06/18 12:00 03/09/18 08:19 0.1 MG Darbepoetin Taran (Aranesp) 60 mcg WEEKLYHS 03/06/18 21:00 03/06/18 20:52 60 MCG Dexamethasone (Decadron) 12 mg DAILY 03/09/18 09:00 03/09/18 08:20 12 MG Famotidine (Pepcid) 20 mg QHS 03/06/18 21:00 03/07/18 13:15 DC 03/06/18 20:51 20 MG Fentanyl (Duragesic 50mcg/ Hr Patch) 1 patch Q72H 03/06/18 21:30 03/06/18 21:08 1 PATCH Fentanyl Citrate (Fentanyl 2ml Vial) 100 mcg 1X ONCE 03/06/18 10:30 03/06/18 10:35 DC 03/06/18 10:11 100 MCG Ferrous Sulfate (Iron Oral Solution) 300 mg DAILY 03/08/18 10:30 03/09/18 08:20 300 MG Fluticasone Propionate (Flonase) 1 spray DAILY 03/06/18 12:00 03/06/18 12:16 1 SPRAY Guaifenesin/ Codeine Phosphate (Robitussin Ac) 10 ml PRN Q4HRS PRN 03/06/18 11:45 Heparin Sodium (Porcine) (Heparin Sodium) 4,200 unit 1X ONCE 03/06/18 10:30 03/06/18 10:35 DC 03/06/18 10:11 4,200 UNIT Info (PHARMACY MONITORING -- do not chart) 1 each PRN DAILY PRN 03/08/18 21:15 Lidocaine/ Epinephrine (LIDOCAINE 1%-EPI 1:100,000 Multi-Dose) 20 ml 1X ONCE 03/06/18 10:30 03/06/18 10:35 DC 03/06/18 10:09 9 ML Lorazepam (Ativan) 0.5 mg PRN Q12HRS PRN 03/06/18 11:30 Magnesium Sulfate 50 ml @ 25 mls/hr PRN DAILY PRN 03/06/18 13:45 Midazolam HCl (Versed) 2 mg 1X ONCE 03/06/18 10:30 03/06/18 10:35 DC 03/06/18 10:11 2 MG Multivitamins (Thera M Plus) 1 tab DAILY 03/06/18 12:00 03/09/18 08:20 1 TAB Non-Formulary Medication (Melatonin ) 1 tab QHS 03/06/18 21:00 UNV Ondansetron HCl (Zofran Odt) 8 mg PRN Q8HRS PRN 03/06/18 11:30 03/09/18 01:24 8 MG Ondansetron HCl (Zofran) 4 mg 1X ONCE 03/05/18 22:45 03/05/18 22:55 DC 03/05/18 22:55 4 MG Oxycodone HCl (Roxicodone) 20 mg PRN Q4HRS PRN 03/06/18 06:15 Pantoprazole Sodium (PROTONIX VIAL for IV PUSH) 40 mg DAILYAC 03/08/18 07:30 03/09/18 08:19 40 MG Pantoprazole Sodium (Protonix) 40 mg DAILYAC 03/08/18 07:30 03/08/18 07:30 DC Polyethylene Glycol (miraLAX PACKET) 17 gm QHS 03/06/18 21:00 03/09/18 08:25 17 GM Prochlorperazine Edisylate (Compazine) 10 mg PRN Q6HRS PRN 03/06/18 12:45 1/2/19 03:05 10 MG Sennosides (Senna) 8.6 mg DAILY 03/06/18 12:00 03/09/18 08:20 8.6 MG Sertraline HCl (Zoloft) 150 mg DAILY 03/06/18 12:00 03/09/18 08:20 150 MG Sodium Polystyrene Sulfonate (Kayexalate) 30 gm 1X ONCE 03/05/18 22:15 03/05/18 22:16 DC 03/05/18 23:23 30 GM Sodium Bicarbonate (Sodium Bicarb Adult 8.4% Syr) 50 meq 1X ONCE 03/05/18 22:15 03/05/18 22:16 DC 03/05/18 23:23 50 MEQ Sodium Chloride (Normal Saline Flush) 10 ml 1X PRN PRN 03/08/18 15:00 03/09/18 14:59 Lab Laboratory Tests Test 03/09/18 07:55 Sodium Level 140 mmol/L (136-145) Potassium Level 4.0 mmol/L (3.5-5.1) Chloride Level 99 mmol/L (98-107) Carbon Dioxide Level 25 mmol/L (21-32) Anion Gap 16 (6-14) Blood Urea Nitrogen 27 mg/dL (7-20) Creatinine 2.5 mg/dL (0.6-1.0) Estimated GFR (Cockcroft-Gault) 19.9 Glucose Level 73 mg/dL (70-99) Calcium Level 8.4 mg/dL (8.5-10.1) Phosphorus Level 3.3 mg/dL (2.6-4.7) Magnesium Level 1.9 mg/dL (1.8-2.4) Albumin 3.2 g/dL (3.4-5.0) Results All relevant outside records, renal labs, imaging studies, telemetry/EKG's were reviewed. JIGAR OLIVER MD Mar 09, 2018 11:46
--- NOTE | 2018-03-09 12:23 | PDOC ---
Subjective: Subjective: Abdomen feels tight. No n/v - tolerating clears "so far so good," not interested in having more right now. Passing gas, no stool today. Objective: Vital Signs: Vital Signs Date Time Temp Pulse Resp B/P (MAP) Pulse Ox O2 Delivery O2 Flow Rate FiO2 03/09/18 10:58 98.3 101 18 129/79 (96) 94 Nasal Cannula 2.0 98.3 Labs: Laboratory Tests Test 03/09/18 07:55 Sodium Level 140 mmol/L Potassium Level 4.0 mmol/L Chloride Level 99 mmol/L Carbon Dioxide Level 25 mmol/L Anion Gap 16 Blood Urea Nitrogen 27 mg/dL Creatinine 2.5 mg/dL Estimated GFR (Cockcroft-Gault) 19.9 Glucose Level 73 mg/dL Calcium Level 8.4 mg/dL Phosphorus Level 3.3 mg/dL Magnesium Level 1.9 mg/dL Albumin 3.2 g/dL Imaging: Acute Abd Series 03/09/18 (pending) PE: GEN: NAD, up to chair w/ therapy LUNGS: NC HEART: RRR ABD: distended, tight/firm (stable), BS+ EXTREMITY: BLE pitting edema NEURO/PSYCH: A & O �3 A/P: Metastatic ovarian cancer, ESRD on HD, anemia Ascites - s/p paracentesis (800cc) Abnormal KUB/CT - ?ileus/SBO -- Tolerating clears, x-ray pending - ?advance diet Change to PO PPI. CAROL GOMEZ Mar 09, 2018 12:23
--- NOTE | 2018-03-09 13:50 | NUR ---
ZACHARY following for dc planning. Discussed with RN. Pt having an xray today and is still on clear liquid diet. Unlikely to dc today. SW following.
[2018-03-09 14:44] VITALS: BP 129/76
--- NOTE | 2018-03-09 16:20 | RAD ---
Single view chest with upright and supine AP views abdomen 03/09/2018 CLINICAL INDICATION: Small bowel obstruction follow-up. COMPARISON: CT abdomen and pelvis 03/07/2018 FINDINGS: Right IJ chest port with distal tip overlying the superior caval atrial junction. Dual lumen left IJ hemodialysis catheter with distal tip overlying the mid right atrial level. Left-sided chest tube in similar position. Cardiac and mediastinal silhouettes unremarkable. There are small bilateral pleural effusions with patchy bibasilar opacities. No pneumothorax. Mild gaseous dilated small bowel loops measuring up to 3.3 cm with distal colorectal gas. No evidence of pneumoperitoneum. IMPRESSION: 1. No significant change in mild gaseous dilated small bowel loops with distal colorectal gas, indeterminate between partial low-grade small bowel obstruction versus ileus versus physiologic. 2. Stable small bilateral pleural effusions and patchy bibasilar opacities. Electronically signed by: Huber Rodriguez MD (03/09/2018 4:15 PM) [id number]
[2018-03-09] MEDS: PANTOPRAZOLE 40 MG TABLET.DR. PO SCH (17:28)
[2018-03-09 19:57] VITALS: BP 130/75
[2018-03-09] MEDS: fentaNYL 50MCG/HR PATCH 1 PATCH PATCH.TD72 TD SCH (20:55)
[2018-03-10] VITALS (9 sets, daily range): BP systolic 104–156; BP diastolic 75–102
[2018-03-10 05:00] LABS: BASO % 0 % (0-3); EOS % 0 % (0-3); LYMPH # 0.3 x10^3/uL (1.0-4.8); LYMPH % 3 % (24-48); MEAN CORPUSCULAR HEMOGLOBIN 29 pg (25-35); MEAN CORPUSCULAR HGB CONC 32 g/dL (31-37); MEAN CORPUSCULAR VOLUME 89 fL (79-100); MONO # 0.5 x10^3/uL (0.0-1.1); MONO % 4 % (0-9); NEUT # 11.1 x10^3uL (1.8-7.7); NEUT % 93 % (31-73); PLATELET COUNT 322 x10^3/uL (140-400); RED BLOOD COUNT 2.17 x10^6/uL (3.50-5.40); RED CELL DISTRIBUTION WIDTH 20.1 % (11.5-14.5)
[2018-03-10 05:14] LABS: HEMATOCRIT 19.3 % (36.0-47.0); HEMOGLOBIN 6.2 g/dL (12.0-15.5)
--- NOTE | 2018-03-10 05:26 | NUR ---
Around 0512 lab called and notified me that Yessica had a critical HGB of 6.2 and Hct of 19.3. Dr Lino notified @ 0517 and gave orders to transfuse 1 unit of PRBC's in dialysis.
[2018-03-10 05:50] LABS: ALBUMIN 3.4 g/dL (3.4-5.0); CALCIUM 9.1 mg/dL (8.5-10.1); CREATININE 3.3 mg/dL (0.6-1.0); GFR 14.4; PHOSPHORUS 4.1 mg/dL (2.6-4.7)
[2018-03-10] MEDS: PANTOPRAZOLE 40 MG TABLET.DR. PO SCH (08:20)
[2018-03-10] MEDS: ONDANSETRON ODT 4 MG TAB.RAPDIS. PO PRN ×2 (08:28→17:25)
[2018-03-10] MEDS: oxyCODONE IR 5 MG TABLET PO PRN ×2 (08:28→14:04)
[2018-03-10] MEDS ORDERED: IV NORMAL SALINE 1000ML BAG 1,000 ML IV PRN ×2 (08:30)
[2018-03-10] MEDS: FLUTICASONE 50MCG/NASAL SPRAY 16GM BOTTLE. NS SCH (08:45)
[2018-03-10] MEDS: SERTRALINE 50 MG TABLET. PO SCH (08:45)
[2018-03-10] MEDS: SENNOSIDES 8.6 MG TABLET PO SCH (08:45)
[2018-03-10] MEDS: FERROUS SULFATE ORAL 300 MG/5 ML SOLUTION. PO SCH (08:45)
[2018-03-10] MEDS: cloNIDine HCL 0.1 MG TABLET PO SCH ×2 (08:45→21:05)
[2018-03-10] MEDS: DEXAMETHASONE 4 MG TABLET PO SCH (08:45)
[2018-03-10] MEDS: CALCIUM ACETATE 667 MG CAPSULE PO SCH ×3 (08:45→17:00)
[2018-03-10] MEDS: MULTIVITAMIN with MINERAL TABLET. PO SCH (08:45)
[2018-03-10] MEDS: CARVEDILOL 6.25 MG TABLET. PO SCH ×2 (08:45→18:35)
[2018-03-10] MEDS ORDERED: DIALYSIS PATIENT. MC PRN ×2 (10:15)
--- NOTE | 2018-03-10 10:22 | PDOC ---
PROGRESS NOTES Chief Complaint Chief Complaint Hyperkalemia Ovarian Cancer, METASTATIC End Stage Renal Disease, HD dependent Tachycardia small bowel obstruction by ct Ascites - s/p paracentesis (800cc) Abnormal KUB/CT - ?ileus/SBO History of Present Illness History of Present Illness PT seen and examined, spoke with nursing staff. Observed CDI bandage. Pt will receive dialysis today. Pt will receive a unit of blood today secondary to H/H critical low on labs. Observed B/L LE edema, will contact Meredith Mcdonough secondary to this for lymphedema treatment. Pt reports that her chemo port is obstructed. Pt reports "I need something to work out." Vitals Vitals Vital Signs Date Time Temp Pulse Resp B/P (MAP) Pulse Ox O2 Delivery O2 Flow Rate FiO2 03/10/18 08:28 16 Nasal Cannula 2.0 03/10/18 07:00 98.3 97 147/87 (107) 96 98.3 Physical Exam Physical Exam General: ALERT Heart: Other (tachycardia at 111 bpm) Abdomen: SOFT GEN: NAD LUNGS: CTAB HEART: RRR There is a small left pleural effusion. There is adjacent compressive atelectasis versus infiltrate. There is subsegmental atelectasis at the right lung base. There is a 6 cm solid noncalcified pulmonary nodule in the right middle lobe (series 2, image 9). A left lower lobe thoracostomy tube is partially profiled. There is suggestion of pleural thickening at the left lung base. Evaluation of the solid abdominal viscera is limited by lack of intravenous contrast. There is mild nodular contour of the hepatic parenchyma which may reflect underlying hepatic disease such as cirrhosis. Spleen is nonenlarged. There is focal hypoattenuation along the superior aspect of the spleen measuring 2.9 cm which is inadequately assessed without contrast. There is nodular thickening of the left adrenal gland which is indeterminate measuring up to 9 mm. A right adrenal gland is normal in appearance. There is mild atrophy of the pancreas. No peripancreatic inflammatory changes are identified. Gallbladder appears surgically absent. Abdominal aorta is normal in course and caliber with mild calcified atheromatous plaque. There are no pathologically enlarged lymph nodes in abdomen and pelvis. There is moderate to large volume abdominal ascites. Mild renal parenchymal atrophy. Duplex right renal collecting system is identified with prominence of the right renal collecting system and right ureter. Findings may be secondary to reflux. There is no hydronephrosis of the inferior moiety. Left kidney appears normal. No definite contour deforming renal masses are identified. Minimal oral contrast is noted. Differential air-fluid levels are identified. There are dilated small bowel loops measuring up to 3.6 cm. Large bowel is normal in caliber with moderate amount of stool. Stomach is normal in appearance. Evaluation for transition point is limited, however it does appear that the distal terminal ileum is somewhat decompressed. There is nodular thickening along the ventral abdominal wall the supra umbilical region measuring up to 14 mm. Findings are indeterminate and correlation with any prior surgical history is recommended. Anasarca is noted with edema and bilateral flanks. Pelvis evaluation is limited by ascites. Urinary bladder is within normal limits given degree of distention. No suspicious adnexal masses are identified. Supervision the left adnexa measures 2.1 cm suggestive of a dominant follicle. As osseous abnormality is identified. IMPRESSION: 1. Dilated small bowel loops most suggestive of small bowel obstruction without definite transition point visualized due to limited evaluation secondary to the lack of contrast opacification of small bowel loops as well as moderate to large volume abdominal ascites. Short-term follow-up radiographs may be of benefit to assess partial versus complete obstruction. 2. Suggestion of cirrhosis with abdominal ascites. No splenomegaly. Small left pleural effusion which appears loculated. Left-sided thoracostomy tube is partially profiled. Bibasilar subsegmental atelectasis versus infiltrates. 3. Indeterminate splenic lesion measuring 2.9 cm. Further evaluation with a contrast-enhanced CT study may be of benefit. 4. Fusiform thickening of the left adrenal gland may be secondary to adrenal hyperplasia. Attention on follow-up exams is recommended. 5. Nodular thickening is identified along the ventral abdominal wall in the supraumbilical region with nodules measuring up to 14 mm. Electronically signed by: Diane Trent MD (03/07/2018 3:45 PM) [id number] General: Alert, Cooperative, mild distress Heart: Regular rate, Normal S1, Other (tachycardia at 119 bpm) Lungs: Clear Abdomen: No hepatosplenomegaly, Other (POST PARACENTESIS) Extremities: No clubbing, No cyanosis, Normal pulses Labs LABS Laboratory Tests Test 03/10/18 04:30 White Blood Count 12.0 x10^3/uL (4.0-11.0) Red Blood Count 2.17 x10^6/uL (3.50-5.40) Hemoglobin 6.2 g/dL (12.0-15.5) Hematocrit 19.3 % (36.0-47.0) Mean Corpuscular Volume 89 fL (79-100) Mean Corpuscular Hemoglobin 29 pg (25-35) Mean Corpuscular Hemoglobin Concent 32 g/dL (31-37) Red Cell Distribution Width 20.1 % (11.5-14.5) Platelet Count 322 x10^3/uL (140-400) Neutrophils (%) (Auto) 93 % (31-73) Lymphocytes (%) (Auto) 3 % (24-48) Monocytes (%) (Auto) 4 % (0-9) Eosinophils (%) (Auto) 0 % (0-3) Basophils (%) (Auto) 0 % (0-3) Neutrophils # (Auto) 11.1 x10^3uL (1.8-7.7) Lymphocytes # (Auto) 0.3 x10^3/uL (1.0-4.8) Monocytes # (Auto) 0.5 x10^3/uL (0.0-1.1) Eosinophils # (Auto) 0.0 x10^3/uL (0.0-0.7) Basophils # (Auto) 0.0 x10^3/uL (0.0-0.2) Sodium Level 139 mmol/L (136-145) Potassium Level 4.0 mmol/L (3.5-5.1) Chloride Level 99 mmol/L (98-107) Carbon Dioxide Level 25 mmol/L (21-32) Anion Gap 15 (6-14) Blood Urea Nitrogen 41 mg/dL (7-20) Creatinine 3.3 mg/dL (0.6-1.0) Estimated GFR (Cockcroft-Gault) 14.4 Glucose Level 89 mg/dL (70-99) Calcium Level 9.1 mg/dL (8.5-10.1) Phosphorus Level 4.1 mg/dL (2.6-4.7) Magnesium Level 2.0 mg/dL (1.8-2.4) Albumin 3.4 g/dL (3.4-5.0) Review of Systems Review of Systems Denies CP Denies SOB Denies N/V Assessment and Plan Assessmemt and Plan Assessment: Hyperkalemia Ovarian Cancer, METASTATIC End Stage Renal Disease, HD dependent Tachycardia small bowel obstruction by ct Ascites - s/p paracentesis (800cc) Abnormal KUB/CT - ?ileus/SBO Plan: Appreciate subspecialist input Labs PTOT Homemeds Consult Meredith Mcdonough - Lymphedema treatment Comment Review of Relevant I have reviewed the following items arden (where applicable) has been applied. Labs Laboratory Tests Test 03/09/18 07:55 03/10/18 04:30 Sodium Level 140 mmol/L (136-145) 139 mmol/L (136-145) Potassium Level 4.0 mmol/L (3.5-5.1) 4.0 mmol/L (3.5-5.1) Chloride Level 99 mmol/L (98-107) 99 mmol/L (98-107) Carbon Dioxide Level 25 mmol/L (21-32) 25 mmol/L (21-32) Anion Gap 16 (6-14) 15 (6-14) Blood Urea Nitrogen 27 mg/dL (7-20) 41 mg/dL (7-20) Creatinine 2.5 mg/dL (0.6-1.0) 3.3 mg/dL (0.6-1.0) Estimated GFR (Cockcroft-Gault) 19.9 14.4 Glucose Level 73 mg/dL (70-99) 89 mg/dL (70-99) Calcium Level 8.4 mg/dL (8.5-10.1) 9.1 mg/dL (8.5-10.1) Phosphorus Level 3.3 mg/dL (2.6-4.7) 4.1 mg/dL (2.6-4.7) Magnesium Level 1.9 mg/dL (1.8-2.4) 2.0 mg/dL (1.8-2.4) Albumin 3.2 g/dL (3.4-5.0) 3.4 g/dL (3.4-5.0) White Blood Count 12.0 x10^3/uL (4.0-11.0) Red Blood Count 2.17 x10^6/uL (3.50-5.40) Hemoglobin 6.2 g/dL (12.0-15.5) Hematocrit 19.3 % (36.0-47.0) Mean Corpuscular Volume 89 fL (79-100) Mean Corpuscular Hemoglobin 29 pg (25-35) Mean Corpuscular Hemoglobin Concent 32 g/dL (31-37) Red Cell Distribution Width 20.1 % (11.5-14.5) Platelet Count 322 x10^3/uL (140-400) Neutrophils (%) (Auto) 93 % (31-73) Lymphocytes (%) (Auto) 3 % (24-48) Monocytes (%) (Auto) 4 % (0-9) Eosinophils (%) (Auto) 0 % (0-3) Basophils (%) (Auto) 0 % (0-3) Neutrophils # (Auto) 11.1 x10^3uL (1.8-7.7) Lymphocytes # (Auto) 0.3 x10^3/uL (1.0-4.8) Monocytes # (Auto) 0.5 x10^3/uL (0.0-1.1) Eosinophils # (Auto) 0.0 x10^3/uL (0.0-0.7) Basophils # (Auto) 0.0 x10^3/uL (0.0-0.2) Laboratory Tests Test 03/10/18 04:30 White Blood Count 12.0 x10^3/uL (4.0-11.0) Red Blood Count 2.17 x10^6/uL (3.50-5.40) Hemoglobin 6.2 g/dL (12.0-15.5) Hematocrit 19.3 % (36.0-47.0) Mean Corpuscular Volume 89 fL (79-100) Mean Corpuscular Hemoglobin 29 pg (25-35) Mean Corpuscular Hemoglobin Concent 32 g/dL (31-37) Red Cell Distribution Width 20.1 % (11.5-14.5) Platelet Count 322 x10^3/uL (140-400) Neutrophils (%) (Auto) 93 % (31-73) Lymphocytes (%) (Auto) 3 % (24-48) Monocytes (%) (Auto) 4 % (0-9) Eosinophils (%) (Auto) 0 % (0-3) Basophils (%) (Auto) 0 % (0-3) Neutrophils # (Auto) 11.1 x10^3uL (1.8-7.7) Lymphocytes # (Auto) 0.3 x10^3/uL (1.0-4.8) Monocytes # (Auto) 0.5 x10^3/uL (0.0-1.1) Eosinophils # (Auto) 0.0 x10^3/uL (0.0-0.7) Basophils # (Auto) 0.0 x10^3/uL (0.0-0.2) Sodium Level 139 mmol/L (136-145) Potassium Level 4.0 mmol/L (3.5-5.1) Chloride Level 99 mmol/L (98-107) Carbon Dioxide Level 25 mmol/L (21-32) Anion Gap 15 (6-14) Blood Urea Nitrogen 41 mg/dL (7-20) Creatinine 3.3 mg/dL (0.6-1.0) Estimated GFR (Cockcroft-Gault) 14.4 Glucose Level 89 mg/dL (70-99) Calcium Level 9.1 mg/dL (8.5-10.1) Phosphorus Level 4.1 mg/dL (2.6-4.7) Magnesium Level 2.0 mg/dL (1.8-2.4) Albumin 3.4 g/dL (3.4-5.0) Microbiology 03/08/18 Anaerobic/Aerobic Culture, Resulted Pending 03/08/18 Anaerobic Culture Result 1 (TIMOTHY), Resulted Pending 03/08/18 Aerobic Culture, Resulted Pending 03/08/18 Aerobic Culture Result 1 (TIMOTHY), Resulted Pending 03/08/18 Gram Stain - Final, Resulted 03/08/18 Gram Stain Result 1 (TIMOTHY) - Final, Resulted 03/08/18 Gram Stain Result 2 (TIMOTHY) - Final, Resulted Medications Current Medications Ondansetron HCl (Zofran) 4 mg PRN Q8HRS PRN IV NAUSEA/VOMITING Last administered on 03/06/18at 05:34; Start 03/05/18 at 22:00; Stop 03/06/18 at 21:59 ; Status DC Fentanyl Citrate (Fentanyl 2ml Vial) 50 mcg PRN Q1HR PRN IV PAIN Last administered on 03/06/18at 05:35; Start 03/05/18 at 22:00; Stop 03/06/18 at 21:59 ; Status DC Calcium Gluconate (Calcium Gluconate) 1,000 mg 1X ONCE IVP Last administered on 03/05/18at 23:23; Start 03/05/18 at 22:15; Stop 03/05/18 at 22:16; Status DC Sodium Bicarbonate (Sodium Bicarb Adult 8.4% Syr) 50 meq 1X ONCE IV Last administered on 03/05/18at 23:23; Start 03/05/18 at 22:15; Stop 03/05/18 at 22 :16; Status DC Sodium Polystyrene Sulfonate (Kayexalate) 30 gm 1X ONCE PO Last administered on 03/05/18at 23:23; Start 03/05/18 at 22:15; Stop 03/05/18 at 22:16; Status DC Ondansetron HCl (Zofran) 4 mg 1X ONCE IV Last administered on 03/05/18at 22:55 ; Start 03/05/18 at 22:45; Stop 03/05/18 at 22:55; Status DC Prochlorperazine Edisylate (Compazine) 10 mg PRN Q6HRS PRN IM NAUSEA/VOMITING; Start 03/06/18 at 06:15; Stop 03/06/18 at 12:32; Status DC Oxycodone HCl (Roxicodone) 10 mg PRN Q4HRS PRN PO MILD - MODERATE PAIN Last administered on 03/10/18at 08:28; Start 03/06/18 at 06:15 Oxycodone HCl (Roxicodone) 20 mg PRN Q4HRS PRN PO SEVERE PAIN; Start 03/06/18 at 06:15 Lidocaine/ Epinephrine (LIDOCAINE 1%-EPI 1:100,000 Multi-Dose) 20 ml STK-MED ONCE .ROUTE ; Start 03/06/18 at 09:11; Stop 03/06/18 at 09:12; Status DC Cefazolin Sodium 50 ml @ As Directed STK-MED ONCE IV ; Start 03/06/18 at 09:34; Stop 03/06/18 at 09:35; Status DC Midazolam HCl (Versed) 2 mg STK-MED ONCE .ROUTE ; Start 03/06/18 at 09:34; Stop 03/06/18 at 09:35; Status DC Fentanyl Citrate (Fentanyl 2ml Vial) 100 mcg STK-MED ONCE .ROUTE ; Start at 09:34; Stop 03/06/18 at 09:35; Status DC Heparin Sodium (Porcine) (Heparin Sodium) 10,000 unit STK-MED ONCE .ROUTE ; Start 03/06/18 at 09:44; Stop 03/06/18 at 09:46; Status DC Midazolam HCl (Versed) 2 mg 1X ONCE IV Last administered on 03/06/18at 10:11; Start 03/06/18 at 10:30; Stop 03/06/18 at 10:35; Status DC Fentanyl Citrate (Fentanyl 2ml Vial) 100 mcg 1X ONCE IV Last administered on at 10:11; Start 03/06/18 at 10:30; Stop 03/06/18 at 10:35; Status DC Lidocaine/ Epinephrine (LIDOCAINE 1%-EPI 1:100,000 Multi-Dose) 20 ml 1X ONCE IJ Last administered on 03/06/18at 10:09; Start 03/06/18 at 10:30; Stop 03/06/18 at 10:35; Status DC Cefazolin Sodium 50 ml @ 100 mls/hr 1X ONCE IV Last administered on 03/06/18at 10:11; Start 03/06/18 at 10:30; Stop 03/06/18 at 10:59; Status DC Heparin Sodium (Porcine) (Heparin Sodium) 4,200 unit 1X ONCE INT CAT Last administered on 03/06/18at 10:11; Start 03/06/18 at 10:30; Stop 03/06/18 at 10:35; Status DC Clonidine HCl (Catapres) 0.1 mg BID PO Last administered on 03/09/18at 20:54; Start 03/06/18 at 12:00 Dexamethasone (Decadron) 16 mg DAILY PO Last administered on 03/07/18at 13:12; Start 03/06/18 at 12:00; Stop 03/08/18 at 09:00; Status DC Fentanyl (Duragesic 50mcg/ Hr Patch) 1 patch Q3DAYS TD ; Start 03/06/18 at 21:00 ; Stop 03/06/18 at 21:05; Status DC Lorazepam (Ativan) 0.5 mg PRN Q12HRS PRN PO ANXIETY / AGITATION; Start 03/06/18 at 11:30 Ondansetron HCl (Zofran Odt) 8 mg PRN Q8HRS PRN PO NAUSEA/VOMITING Last administered on 03/10/18 08:28; Start 03/06/18 at 11:30 Calcium Acetate (Phoslo) 667 mg TIDWMEALS PO Last administered on 03/09/18 12: 09; Start 03/06/18 at 12:00 Carvedilol (Coreg) 6.25 mg BIDWMEALS PO Last administered on 03/09/18 17:28; Start 03/06/18 at 12:00 Famotidine (Pepcid) 20 mg QHS PO Last administered on 03/06/18 20:51; Start 03/06/18 at 21:00; Stop 03/07/18 at 13:15; Status DC Fluticasone Propionate (Flonase) 1 spray DAILY NS Last administered on 12:16; Start 03/06/18 at 12:00 Guaifenesin/ Codeine Phosphate (Robitussin Ac) 10 ml PRN Q4HRS PRN PO COUGH; Start 03/06/18 at 11:45 Non-Formulary Medication (Melatonin ) 1 tab QHS PO ; Start 03/06/18 at 21:00; Status UNV Multivitamins (Thera M Plus) 1 tab DAILY PO Last administered on 03/09/18 08:20 ; Start 03/06/18 at 12:00 Polyethylene Glycol (miraLAX PACKET) 17 gm QHS PO Last administered on 08:25; Start 03/06/18 at 21:00 Sennosides (Senna) 8.6 mg DAILY PO Last administered on 03/09/18 08:20; Start 03/06/18 at 12:00 Sertraline HCl (Zoloft) 150 mg DAILY PO Last administered on 03/09/18 08:20; Start 03/06/18 at 12:00 Prochlorperazine Edisylate (Compazine) 10 mg PRN Q6HRS PRN IV NAUSEA/VOMITING Last administered on 03/07/18 03:05; Start 03/06/18 at 12:45 Darbepoetin Taran (Aranesp) 60 mcg WEEKLYHS SQ Last administered on 03/06/18 20: 52; Start 03/06/18 at 21:00 Magnesium Sulfate 50 ml @ 25 mls/hr PRN DAILY PRN IV for Mag < 1.7 on am labs; Start 03/06/18 at 13:45 Sodium Chloride 1,000 ml @ 1,000 mls/hr Q1H PRN IV hypotension; Start 03/06/18 at 12:30; Stop 03/06/18 at 18:29; Status DC Sodium Chloride 1,000 ml @ 400 mls/hr Q2H30M PRN IV PATENCY; Start 03/06/18 at 12:30; Stop 03/06/18 at 20:00; Status DC Info (PHARMACY MONITORING -- do not chart) 1 each PRN DAILY PRN MC SEE COMMENTS ; Start 03/06/18 at 15:00; Status UNV Info (PHARMACY MONITORING -- do not chart) 1 each PRN DAILY PRN MC SEE COMMENTS ; Start 03/06/18 at 15:00; Stop 03/07/18 at 16:17; Status DC Fentanyl (Duragesic 50mcg/ Hr Patch) 1 patch Q72H TD Last administered on at 20:55; Start 03/06/18 at 21:30 Sodium Chloride 1,000 ml @ 1,000 mls/hr Q1H PRN IV hypotension; Start 03/07/18 at 07:51; Stop 03/07/18 at 13:50; Status DC Albumin Human 200 ml @ 200 mls/hr 1X PRN PRN IV Hypotension; Start 03/07/18 at 08:00; Stop 03/07/18 at 13:59; Status DC Sodium Chloride 1,000 ml @ 400 mls/hr Q2H30M PRN IV PATENCY; Start 03/07/18 at 07:51; Stop 03/07/18 at 19:50; Status DC Info (PHARMACY MONITORING -- do not chart) 1 each PRN DAILY PRN MC SEE COMMENTS ; Start 03/07/18 at 08:00; Stop 03/09/18 at 18:51; Status DC Info (PHARMACY MONITORING -- do not chart) 1 each PRN DAILY PRN MC SEE COMMENTS ; Start 03/07/18 at 08:00; Status UNV Dexamethasone (Decadron) 12 mg DAILY PO ; Start 03/07/18 at 09:30; Stop 03/07/18 at 09:33; Status DC Dexamethasone (Decadron) 12 mg DAILY PO Last administered on 03/09/18at 08:20; Start 03/09/18 at 09:00 Pantoprazole Sodium (Protonix) 40 mg DAILYAC PO ; Start 03/08/18 at 07:30; Stop 03/08/18 at 07:30; Status DC Pantoprazole Sodium (PROTONIX VIAL for IV PUSH) 40 mg DAILYAC IVP Last administered on 03/09/18at 08:19; Start 03/08/18 at 07:30; Stop 03/09/18 at 12:24; Status DC Ferrous Sulfate (Iron Oral Solution) 300 mg DAILY PO Last administered on at 08:20; Start 03/08/18 at 10:30 Albumin Human 100 ml @ 100 mls/hr Q6HRS IV Last administered on 03/09/18at 17:28 ; Start 03/08/18 at 12:00; Stop 03/09/18 at 18:59; Status DC Sodium Chloride 1,000 ml @ 1,000 mls/hr Q1H PRN IV hypotension; Start 03/08/18 at 15:00; Stop 03/08/18 at 21:21; Status DC Sodium Chloride (Normal Saline Flush) 10 ml 1X PRN PRN IV AP catheter pack; Start 03/08/18 at 15:00; Stop 03/09/18 at 14:59; Status DC Sodium Chloride (Normal Saline Flush) 10 ml 1X PRN PRN IV TECHNICAL DOCUMENT WRITER catheter pack; Start 03/08/18 at 15:00; Stop 03/09/18 at 14:59; Status DC Info (PHARMACY MONITORING -- do not chart) 1 each PRN DAILY PRN MC SEE COMMENTS ; Start 03/08/18 at 21:15; Status Cancel Info (PHARMACY MONITORING -- do not chart) 1 each PRN DAILY PRN MC SEE COMMENTS ; Start 03/08/18 at 21:15 Pantoprazole Sodium (Protonix) 40 mg DAILYAC PO Last administered on 03/10/18at 08:20; Start 03/09/18 at 16:30 Sodium Chloride 1,000 ml @ 1,000 mls/hr Q1H PRN IV hypotension; Start 03/10/18 at 08:30; Stop 03/10/18 at 14:29 Sodium Chloride 1,000 ml @ 400 mls/hr Q2H30M PRN IV PATENCY; Start 03/10/18 at 08:30; Stop 03/10/18 at 20:29 Info (PHARMACY MONITORING -- do not chart) 1 each PRN DAILY PRN MC SEE COMMENTS ; Start 03/10/18 at 10:15; Status UNV Info (PHARMACY MONITORING -- do not chart) 1 each PRN DAILY PRN MC SEE COMMENTS ; Start 03/10/18 at 10:15; Status UNV Active Scripts Active Reported Zoloft (Sertraline Hcl) 100 Mg Tablet 150 Mg PO DAILY Senna Lax (Sennosides) 8.6 Mg Tablet 8.6 Mg PO DAILY Proair Hfa (Albuterol Sulfate) 8.5 Gm Hfa.aer.ad 2 Puff INH PRN Q6HRS PRN Miralax (Polyethylene Glycol 3350) 17 Gm Powd.pack 1 Pkt PO HS Oxycodone Hcl 5 Mg Capsule 20 Mg PO PRN Q4HRS PRN Oxycodone Hcl 5 Mg Capsule 10 Mg PO PRN Q4HRS PRN Ondansetron Odt (Ondansetron) 4 Mg Tab.rapdis 8 Mg PO PRN Q8HRS PRN One-Daily Multi-Vitamin (Multivitamin) 1 Each Tablet 1 Each PO HS Melatonin 3 Mg Tablet 1 Tab PO QHS Ativan (Lorazepam) 0.5 Mg Tablet 0.5 Mg PO PRN Q12HRS PRN Guaifenesin-Codeine Syrup (Guaifenesin/Codeine Phosphate) 118 Ml Liquid 10 Ml PO PRN Q4HRS PRN Flonase Allergy Relief (Fluticasone Propionate) 9.9 Ml Ashley.susp 1 Sprays NS DAILY FENTANYL 50mcg/hr (Fentanyl) 1 Each Patch.td72 1 Patch TP Q3DAYS Famotidine 40 Mg Tablet 20 Mg PO HS Dexamethasone 4 Mg Tablet 4 Tab PO DAILY Clonidine Hcl 0.1 Mg Tablet 0.1 Mg PO BID Carvedilol 25 Mg Tablet 6.25 Mg PO BIDWMEALS Calcium Acetate 667 Mg Tablet 667 Mg PO TIDWMEALS Vitals/I & O Vital Sign - Last 24 Hours 03/09/18 03/09/18 03/09/18 03/09/18 10:58 14:44 17:28 19:57 Temp 98.3 98.2 98.7 98.3 98.2 98.7 Pulse 101 92 92 85 Resp 18 18 18 B/P (MAP) 129/79 (96) 129/76 (93) 129/76 130/75 (93) Pulse Ox 94 97 97 O2 Delivery Nasal Cannula Nasal Cannula Room Air O2 Flow Rate 2.0 2.0 03/09/18 03/09/18 03/09/18 03/09/18 20:21 20:54 20:54 20:55 Pulse 85 Resp 18 B/P (MAP) 130/75 Pulse Ox 97 97 O2 Delivery Nasal Cannula Nasal Cannula Nasal Cannula O2 Flow Rate 2.0 2.0 2.0 03/09/18 03/09/18 03/10/18 03/10/18 21:55 23:59 00:02 01:12 Temp 97.7 97.7 Pulse 89 Resp 18 18 B/P (MAP) 135/78 (97) Pulse Ox 97 99 97 O2 Delivery Nasal Cannula Nasal Cannula Nasal Cannula Nasal Cannula O2 Flow Rate 2.0 2.0 2.0 03/10/18 03/10/18 03/10/18 03:53 07:00 08:28 Temp 98.8 98.3 98.8 98.3 Pulse 93 97 Resp 17 18 16 B/P (MAP) 139/85 (103) 147/87 (107) Pulse Ox 98 96 O2 Delivery Nasal Cannula Nasal Cannula Nasal Cannula O2 Flow Rate 2.0 2.0 2.0 Intake and Output 03/09/18 03/09/18 03/10/18 15:01 23:01 07:01 Intake Total 700 ml 400 ml 150 ml Balance 700 ml 400 ml 150 ml Nutrition Consultation Dietary Evaluation: Recommendations by RD: Increase Calorie Intake, Protein supplementation Comments: sending ensure clear tid and active liquid protein tid Expected Outcomes/Goals: diet advancement/ tolerance Malnutrition Findings: Food and Nutrition Intake (Mod: <75% est energy req 7days Weight Status: Overweight ROGERIO MONSALVE III DO Mar 10, 2018 10:22
[2018-03-10] MEDS ORDERED: ALTEPLASE 2 MG VIAL INT CAT ONE ×2 (11:45→20:00)
--- NOTE | 2018-03-10 14:00 | PDOC ---
PROGRESS NOTES Subjective Subjective SEEN IN FOLLOW UP OF ESRD. HAVING NAUSEA Objective Objective Vital Signs Date Time Temp Pulse Resp B/P (MAP) Pulse Ox O2 Delivery O2 Flow Rate FiO2 03/10/18 11:09 97.1 105 16 115/83 97.1 03/10/18 08:28 Nasal Cannula 2.0 03/10/18 07:00 96 Intake and Output 03/10/18 07:01 Intake Total 1250 ml Balance 1250 ml Intake Oral 950 ml IV Total 300 ml Physical Exam Abdomen: Normal bowel sounds, Soft, No tenderness, No hepatosplenomegaly, No masses Heart: Regular rate, Normal S1, Normal S2, No murmurs, Gallops Extremities: No clubbing, No cyanosis, No edema, Normal pulses, No tenderness/ swelling General: Alert, Oriented X3, Cooperative, No acute distress Lungs: Clear to auscultation, Normal air movement Psych/Mental Status: Mental status NL Diagnosis RENAL FAILURE: ESRD Assessment Assessment Problems Medical Problems: (1) Dialysis catheter clot or failure Status: Acute (2) Serum potassium elevated Status: Acute Plan Plan of Care DIALYSIS TODAY AND TOLERATED WELL. NAUSEA AN ISSUE PRE DIALYSIS. CONT ANTIEMETICS Comment Review of Relevant I have reviewed the following items arden (where applicable) has been applied. Labs Laboratory Tests Test 03/09/18 07:55 03/10/18 04:30 Sodium Level 140 mmol/L (136-145) 139 mmol/L (136-145) Potassium Level 4.0 mmol/L (3.5-5.1) 4.0 mmol/L (3.5-5.1) Chloride Level 99 mmol/L (98-107) 99 mmol/L (98-107) Carbon Dioxide Level 25 mmol/L (21-32) 25 mmol/L (21-32) Anion Gap 16 (6-14) 15 (6-14) Blood Urea Nitrogen 27 mg/dL (7-20) 41 mg/dL (7-20) Creatinine 2.5 mg/dL (0.6-1.0) 3.3 mg/dL (0.6-1.0) Estimated GFR (Cockcroft-Gault) 19.9 14.4 Glucose Level 73 mg/dL (70-99) 89 mg/dL (70-99) Calcium Level 8.4 mg/dL (8.5-10.1) 9.1 mg/dL (8.5-10.1) Phosphorus Level 3.3 mg/dL (2.6-4.7) 4.1 mg/dL (2.6-4.7) Magnesium Level 1.9 mg/dL (1.8-2.4) 2.0 mg/dL (1.8-2.4) Albumin 3.2 g/dL (3.4-5.0) 3.4 g/dL (3.4-5.0) White Blood Count 12.0 x10^3/uL (4.0-11.0) Red Blood Count 2.17 x10^6/uL (3.50-5.40) Hemoglobin 6.2 g/dL (12.0-15.5) Hematocrit 19.3 % (36.0-47.0) Mean Corpuscular Volume 89 fL (79-100) Mean Corpuscular Hemoglobin 29 pg (25-35) Mean Corpuscular Hemoglobin Concent 32 g/dL (31-37) Red Cell Distribution Width 20.1 % (11.5-14.5) Platelet Count 322 x10^3/uL (140-400) Neutrophils (%) (Auto) 93 % (31-73) Lymphocytes (%) (Auto) 3 % (24-48) Monocytes (%) (Auto) 4 % (0-9) Eosinophils (%) (Auto) 0 % (0-3) Basophils (%) (Auto) 0 % (0-3) Neutrophils # (Auto) 11.1 x10^3uL (1.8-7.7) Lymphocytes # (Auto) 0.3 x10^3/uL (1.0-4.8) Monocytes # (Auto) 0.5 x10^3/uL (0.0-1.1) Eosinophils # (Auto) 0.0 x10^3/uL (0.0-0.7) Basophils # (Auto) 0.0 x10^3/uL (0.0-0.2) Laboratory Tests Test 03/10/18 04:30 White Blood Count 12.0 x10^3/uL (4.0-11.0) Red Blood Count 2.17 x10^6/uL (3.50-5.40) Hemoglobin 6.2 g/dL (12.0-15.5) Hematocrit 19.3 % (36.0-47.0) Mean Corpuscular Volume 89 fL (79-100) Mean Corpuscular Hemoglobin 29 pg (25-35) Mean Corpuscular Hemoglobin Concent 32 g/dL (31-37) Red Cell Distribution Width 20.1 % (11.5-14.5) Platelet Count 322 x10^3/uL (140-400) Neutrophils (%) (Auto) 93 % (31-73) Lymphocytes (%) (Auto) 3 % (24-48) Monocytes (%) (Auto) 4 % (0-9) Eosinophils (%) (Auto) 0 % (0-3) Basophils (%) (Auto) 0 % (0-3) Neutrophils # (Auto) 11.1 x10^3uL (1.8-7.7) Lymphocytes # (Auto) 0.3 x10^3/uL (1.0-4.8) Monocytes # (Auto) 0.5 x10^3/uL (0.0-1.1) Eosinophils # (Auto) 0.0 x10^3/uL (0.0-0.7) Basophils # (Auto) 0.0 x10^3/uL (0.0-0.2) Sodium Level 139 mmol/L (136-145) Potassium Level 4.0 mmol/L (3.5-5.1) Chloride Level 99 mmol/L (98-107) Carbon Dioxide Level 25 mmol/L (21-32) Anion Gap 15 (6-14) Blood Urea Nitrogen 41 mg/dL (7-20) Creatinine 3.3 mg/dL (0.6-1.0) Estimated GFR (Cockcroft-Gault) 14.4 Glucose Level 89 mg/dL (70-99) Calcium Level 9.1 mg/dL (8.5-10.1) Phosphorus Level 4.1 mg/dL (2.6-4.7) Magnesium Level 2.0 mg/dL (1.8-2.4) Albumin 3.4 g/dL (3.4-5.0) Microbiology 03/08/18 Anaerobic/Aerobic Culture, Resulted Pending 03/08/18 Anaerobic Culture Result 1 (TIMOTHY), Resulted Pending 03/08/18 Aerobic Culture, Resulted Pending 03/08/18 Aerobic Culture Result 1 (TIMOTHY), Resulted Pending 03/08/18 Gram Stain - Final, Resulted 03/08/18 Gram Stain Result 1 (TIMOTHY) - Final, Resulted 03/08/18 Gram Stain Result 2 (TIMOTHY) - Final, Resulted Medications Current Medications Ondansetron HCl (Zofran) 4 mg PRN Q8HRS PRN IV NAUSEA/VOMITING Last administered on 03/06/18at 05:34; Start 03/05/18 at 22:00; Stop 03/06/18 at 21:59 ; Status DC Fentanyl Citrate (Fentanyl 2ml Vial) 50 mcg PRN Q1HR PRN IV PAIN Last administered on 03/06/18at 05:35; Start 03/05/18 at 22:00; Stop 03/06/18 at 21:59 ; Status DC Calcium Gluconate (Calcium Gluconate) 1,000 mg 1X ONCE IVP Last administered on 03/05/18at 23:23; Start 03/05/18 at 22:15; Stop 03/05/18 at 22:16; Status DC Sodium Bicarbonate (Sodium Bicarb Adult 8.4% Syr) 50 meq 1X ONCE IV Last administered on 03/05/18at 23:23; Start 03/05/18 at 22:15; Stop 03/05/18 at 22 :16; Status DC Sodium Polystyrene Sulfonate (Kayexalate) 30 gm 1X ONCE PO Last administered on 03/05/18at 23:23; Start 03/05/18 at 22:15; Stop 03/05/18 at 22:16; Status DC Ondansetron HCl (Zofran) 4 mg 1X ONCE IV Last administered on 03/05/18at 22:55 ; Start 03/05/18 at 22:45; Stop 03/05/18 at 22:55; Status DC Prochlorperazine Edisylate (Compazine) 10 mg PRN Q6HRS PRN IM NAUSEA/VOMITING; Start 03/06/18 at 06:15; Stop 03/06/18 at 12:32; Status DC Oxycodone HCl (Roxicodone) 10 mg PRN Q4HRS PRN PO MILD - MODERATE PAIN Last administered on 03/10/18at 08:28; Start 03/06/18 at 06:15 Oxycodone HCl (Roxicodone) 20 mg PRN Q4HRS PRN PO SEVERE PAIN; Start 03/06/18 at 06:15 Lidocaine/ Epinephrine (LIDOCAINE 1%-EPI 1:100,000 Multi-Dose) 20 ml STK-MED ONCE .ROUTE ; Start 03/06/18 at 09:11; Stop 03/06/18 at 09:12; Status DC Cefazolin Sodium 50 ml @ As Directed STK-MED ONCE IV ; Start 03/06/18 at 09:34; Stop 03/06/18 at 09:35; Status DC Midazolam HCl (Versed) 2 mg STK-MED ONCE .ROUTE ; Start 03/06/18 at 09:34; Stop 03/06/18 at 09:35; Status DC Fentanyl Citrate (Fentanyl 2ml Vial) 100 mcg STK-MED ONCE .ROUTE ; Start at 09:34; Stop 03/06/18 at 09:35; Status DC Heparin Sodium (Porcine) (Heparin Sodium) 10,000 unit STK-MED ONCE .ROUTE ; Start 03/06/18 at 09:44; Stop 03/06/18 at 09:46; Status DC Midazolam HCl (Versed) 2 mg 1X ONCE IV Last administered on 03/06/18at 10:11; Start 03/06/18 at 10:30; Stop 03/06/18 at 10:35; Status DC Fentanyl Citrate (Fentanyl 2ml Vial) 100 mcg 1X ONCE IV Last administered on at 10:11; Start 03/06/18 at 10:30; Stop 03/06/18 at 10:35; Status DC Lidocaine/ Epinephrine (LIDOCAINE 1%-EPI 1:100,000 Multi-Dose) 20 ml 1X ONCE IJ Last administered on 03/06/18at 10:09; Start 03/06/18 at 10:30; Stop 03/06/18 at 10:35; Status DC Cefazolin Sodium 50 ml @ 100 mls/hr 1X ONCE IV Last administered on 03/06/18at 10:11; Start 03/06/18 at 10:30; Stop 03/06/18 at 10:59; Status DC Heparin Sodium (Porcine) (Heparin Sodium) 4,200 unit 1X ONCE INT CAT Last administered on 03/06/18at 10:11; Start 03/06/18 at 10:30; Stop 03/06/18 at 10:35; Status DC Clonidine HCl (Catapres) 0.1 mg BID PO Last administered on 03/09/18 20:54; Start 03/06/18 at 12:00 Dexamethasone (Decadron) 16 mg DAILY PO Last administered on 03/07/18 13:12; Start 03/06/18 at 12:00; Stop 03/08/18 at 09:00; Status DC Fentanyl (Duragesic 50mcg/ Hr Patch) 1 patch Q3DAYS TD ; Start 03/06/18 at 21:00 ; Stop 03/06/18 at 21:05; Status DC Lorazepam (Ativan) 0.5 mg PRN Q12HRS PRN PO ANXIETY / AGITATION; Start 03/06/18 at 11:30 Ondansetron HCl (Zofran Odt) 8 mg PRN Q8HRS PRN PO NAUSEA/VOMITING Last administered on 03/10/18 08:28; Start 03/06/18 at 11:30 Calcium Acetate (Phoslo) 667 mg TIDWMEALS PO Last administered on 03/09/18 12: 09; Start 03/06/18 at 12:00 Carvedilol (Coreg) 6.25 mg BIDWMEALS PO Last administered on 03/09/18 17:28; Start 03/06/18 at 12:00 Famotidine (Pepcid) 20 mg QHS PO Last administered on 03/06/18 20:51; Start 03/06/18 at 21:00; Stop 03/07/18 at 13:15; Status DC Fluticasone Propionate (Flonase) 1 spray DAILY NS Last administered on at 12:16; Start 03/06/18 at 12:00 Guaifenesin/ Codeine Phosphate (Robitussin Ac) 10 ml PRN Q4HRS PRN PO COUGH; Start 03/06/18 at 11:45 Non-Formulary Medication (Melatonin ) 1 tab QHS PO ; Start 03/06/18 at 21:00; Status UNV Multivitamins (Thera M Plus) 1 tab DAILY PO Last administered on 03/09/18 08:20 ; Start 03/06/18 at 12:00 Polyethylene Glycol (miraLAX PACKET) 17 gm QHS PO Last administered on 1/4/ 19at 08:25; Start 03/06/18 at 21:00 Sennosides (Senna) 8.6 mg DAILY PO Last administered on 03/09/18at 08:20; Start 03/06/18 at 12:00 Sertraline HCl (Zoloft) 150 mg DAILY PO Last administered on 03/09/18at 08:20; Start 03/06/18 at 12:00 Prochlorperazine Edisylate (Compazine) 10 mg PRN Q6HRS PRN IV NAUSEA/VOMITING Last administered on 03/07/18at 03:05; Start 03/06/18 at 12:45 Darbepoetin Taran (Aranesp) 60 mcg WEEKLYHS SQ Last administered on 03/06/18at 20: 52; Start 03/06/18 at 21:00 Magnesium Sulfate 50 ml @ 25 mls/hr PRN DAILY PRN IV for Mag < 1.7 on am labs; Start 03/06/18 at 13:45 Sodium Chloride 1,000 ml @ 1,000 mls/hr Q1H PRN IV hypotension; Start 03/06/18 at 12:30; Stop 03/06/18 at 18:29; Status DC Sodium Chloride 1,000 ml @ 400 mls/hr Q2H30M PRN IV PATENCY; Start 03/06/18 at 12:30; Stop 03/06/18 at 20:00; Status DC Info (PHARMACY MONITORING -- do not chart) 1 each PRN DAILY PRN MC SEE COMMENTS ; Start 03/06/18 at 15:00; Status UNV Info (PHARMACY MONITORING -- do not chart) 1 each PRN DAILY PRN MC SEE COMMENTS ; Start 03/06/18 at 15:00; Stop 03/07/18 at 16:17; Status DC Fentanyl (Duragesic 50mcg/ Hr Patch) 1 patch Q72H TD Last administered on at 20:55; Start 03/06/18 at 21:30 Sodium Chloride 1,000 ml @ 1,000 mls/hr Q1H PRN IV hypotension; Start 03/07/18 at 07:51; Stop 03/07/18 at 13:50; Status DC Albumin Human 200 ml @ 200 mls/hr 1X PRN PRN IV Hypotension; Start 03/07/18 at 08:00; Stop 03/07/18 at 13:59; Status DC Sodium Chloride 1,000 ml @ 400 mls/hr Q2H30M PRN IV PATENCY; Start 03/07/18 at 07:51; Stop 03/07/18 at 19:50; Status DC Info (PHARMACY MONITORING -- do not chart) 1 each PRN DAILY PRN MC SEE COMMENTS ; Start 03/07/18 at 08:00; Stop 03/09/18 at 18:51; Status DC Info (PHARMACY MONITORING -- do not chart) 1 each PRN DAILY PRN MC SEE COMMENTS ; Start 03/07/18 at 08:00; Status UNV Dexamethasone (Decadron) 12 mg DAILY PO ; Start 03/07/18 at 09:30; Stop 03/07/18 at 09:33; Status DC Dexamethasone (Decadron) 12 mg DAILY PO Last administered on 03/09/18at 08:20; Start 03/09/18 at 09:00 Pantoprazole Sodium (Protonix) 40 mg DAILYAC PO ; Start 03/08/18 at 07:30; Stop 03/08/18 at 07:30; Status DC Pantoprazole Sodium (PROTONIX VIAL for IV PUSH) 40 mg DAILYAC IVP Last administered on 03/09/18at 08:19; Start 03/08/18 at 07:30; Stop 03/09/18 at 12:24; Status DC Ferrous Sulfate (Iron Oral Solution) 300 mg DAILY PO Last administered on at 08:20; Start 03/08/18 at 10:30 Albumin Human 100 ml @ 100 mls/hr Q6HRS IV Last administered on 03/09/18at 17:28 ; Start 03/08/18 at 12:00; Stop 03/09/18 at 18:59; Status DC Sodium Chloride 1,000 ml @ 1,000 mls/hr Q1H PRN IV hypotension; Start 03/08/18 at 15:00; Stop 03/08/18 at 21:21; Status DC Sodium Chloride (Normal Saline Flush) 10 ml 1X PRN PRN IV AP catheter pack; Start 03/08/18 at 15:00; Stop 03/09/18 at 14:59; Status DC Sodium Chloride (Normal Saline Flush) 10 ml 1X PRN PRN IV AC/DC REWINDER catheter pack; Start 03/08/18 at 15:00; Stop 03/09/18 at 14:59; Status DC Info (PHARMACY MONITORING -- do not chart) 1 each PRN DAILY PRN MC SEE COMMENTS ; Start 03/08/18 at 21:15; Status Cancel Info (PHARMACY MONITORING -- do not chart) 1 each PRN DAILY PRN MC SEE COMMENTS ; Start 03/08/18 at 21:15 Pantoprazole Sodium (Protonix) 40 mg DAILYAC PO Last administered on 03/10/18at 08:20; Start 03/09/18 at 16:30 Sodium Chloride 1,000 ml @ 1,000 mls/hr Q1H PRN IV hypotension; Start 03/10/18 at 08:30; Stop 03/10/18 at 14:29 Sodium Chloride 1,000 ml @ 400 mls/hr Q2H30M PRN IV PATENCY; Start 03/10/18 at 08:30; Stop 03/10/18 at 20:29 Info (PHARMACY MONITORING -- do not chart) 1 each PRN DAILY PRN MC SEE COMMENTS ; Start 03/10/18 at 10:15; Status UNV Info (PHARMACY MONITORING -- do not chart) 1 each PRN DAILY PRN MC SEE COMMENTS ; Start 03/10/18 at 10:15; Status UNV Alteplase, Recombinant (Cathflo) 2 mg 1X ONCE INT CAT ; Start 03/10/18 at 11:45 ; Stop 03/10/18 at 11:46; Status DC Active Scripts Active Reported Zoloft (Sertraline Hcl) 100 Mg Tablet 150 Mg PO DAILY Senna Lax (Sennosides) 8.6 Mg Tablet 8.6 Mg PO DAILY Proair Hfa (Albuterol Sulfate) 8.5 Gm Hfa.aer.ad 2 Puff INH PRN Q6HRS PRN Miralax (Polyethylene Glycol 3350) 17 Gm Powd.pack 1 Pkt PO HS Oxycodone Hcl 5 Mg Capsule 20 Mg PO PRN Q4HRS PRN Oxycodone Hcl 5 Mg Capsule 10 Mg PO PRN Q4HRS PRN Ondansetron Odt (Ondansetron) 4 Mg Tab.rapdis 8 Mg PO PRN Q8HRS PRN One-Daily Multi-Vitamin (Multivitamin) 1 Each Tablet 1 Each PO HS Melatonin 3 Mg Tablet 1 Tab PO QHS Ativan (Lorazepam) 0.5 Mg Tablet 0.5 Mg PO PRN Q12HRS PRN Guaifenesin-Codeine Syrup (Guaifenesin/Codeine Phosphate) 118 Ml Liquid 10 Ml PO PRN Q4HRS PRN Flonase Allergy Relief (Fluticasone Propionate) 9.9 Ml Orient.susp 1 Sprays NS DAILY FENTANYL 50mcg/hr (Fentanyl) 1 Each Patch.td72 1 Patch TP Q3DAYS Famotidine 40 Mg Tablet 20 Mg PO HS Dexamethasone 4 Mg Tablet 4 Tab PO DAILY Clonidine Hcl 0.1 Mg Tablet 0.1 Mg PO BID Carvedilol 25 Mg Tablet 6.25 Mg PO BIDWMEALS Calcium Acetate 667 Mg Tablet 667 Mg PO TIDWMEALS Vitals/I & O Vital Sign - Last 24 Hours 03/09/18 03/09/18 03/09/18 03/09/18 14:44 17:28 19:57 20:21 Temp 98.2 98.7 98.2 98.7 Pulse 92 92 85 Resp 18 18 B/P (MAP) 129/76 (93) 129/76 130/75 (93) Pulse Ox 97 97 O2 Delivery Nasal Cannula Room Air Nasal Cannula O2 Flow Rate 2.0 2.0 03/09/18 03/09/18 03/09/18 03/09/18 20:54 20:54 20:55 21:55 Pulse 85 Resp 18 18 B/P (MAP) 130/75 Pulse Ox 97 97 97 O2 Delivery Nasal Cannula Nasal Cannula Nasal Cannula O2 Flow Rate 2.0 2.0 2.0 03/09/18 03/10/18 03/10/18 03/10/18 23:59 00:02 01:12 03:53 Temp 97.7 98.8 97.7 98.8 Pulse 89 93 Resp 18 17 B/P (MAP) 135/78 (97) 139/85 (103) Pulse Ox 99 97 98 O2 Delivery Nasal Cannula Nasal Cannula Nasal Cannula Nasal Cannula O2 Flow Rate 2.0 2.0 2.0 03/10/18 03/10/18 03/10/18 03/10/18 07:00 07:50 08:28 08:45 Temp 98.3 98.3 Pulse 97 97 Resp 18 16 B/P (MAP) 147/87 (107) 147/87 Pulse Ox 96 O2 Delivery Nasal Cannula Nasal Cannula Nasal Cannula O2 Flow Rate 2.0 2.0 2.0 03/10/18 03/10/18 03/10/18 03/10/18 08:45 10:24 10:50 11:09 Temp 97.8 97.5 97.1 97.8 97.5 97.1 Pulse 97 108 107 105 Resp 20 18 16 B/P (MAP) 147/87 104/75 104/82 115/83 Intake and Output 03/09/18 03/09/18 03/10/18 15:01 23:01 07:01 Intake Total 700 ml 400 ml 150 ml Balance 700 ml 400 ml 150 ml Nutrition Consultation Dietary Evaluation: Recommendations by RD: Increase Calorie Intake, Protein supplementation Comments: sending ensure clear tid and active liquid protein tid Expected Outcomes/Goals: diet advancement/ tolerance Malnutrition Findings: Food and Nutrition Intake (Mod: <75% est energy req 7days Weight Status: Overweight GARO WEBSTER MD Mar 10, 2018 14:00
[2018-03-10] MEDS: PROCHLORPERAZINE 10 MG/2 ML VIAL. IV PRN ×2 (14:04→20:58)
--- NOTE | 2018-03-10 14:18 | PDOC ---
G I PROGRESS NOTE Reason for Follow-up Peritoneal carcinomatosis Subjective More nauseated today Physical Exam Lungs decreased BS CV S1 S2 ABD distended, hypoactive BS Review of Relevant I have reviewed the following items arden (where applicable) has been applied. Labs Laboratory Tests Test 03/09/18 07:55 03/10/18 04:30 Sodium Level 140 mmol/L (136-145) 139 mmol/L (136-145) Potassium Level 4.0 mmol/L (3.5-5.1) 4.0 mmol/L (3.5-5.1) Chloride Level 99 mmol/L (98-107) 99 mmol/L (98-107) Carbon Dioxide Level 25 mmol/L (21-32) 25 mmol/L (21-32) Anion Gap 16 (6-14) 15 (6-14) Blood Urea Nitrogen 27 mg/dL (7-20) 41 mg/dL (7-20) Creatinine 2.5 mg/dL (0.6-1.0) 3.3 mg/dL (0.6-1.0) Estimated GFR (Cockcroft-Gault) 19.9 14.4 Glucose Level 73 mg/dL (70-99) 89 mg/dL (70-99) Calcium Level 8.4 mg/dL (8.5-10.1) 9.1 mg/dL (8.5-10.1) Phosphorus Level 3.3 mg/dL (2.6-4.7) 4.1 mg/dL (2.6-4.7) Magnesium Level 1.9 mg/dL (1.8-2.4) 2.0 mg/dL (1.8-2.4) Albumin 3.2 g/dL (3.4-5.0) 3.4 g/dL (3.4-5.0) White Blood Count 12.0 x10^3/uL (4.0-11.0) Red Blood Count 2.17 x10^6/uL (3.50-5.40) Hemoglobin 6.2 g/dL (12.0-15.5) Hematocrit 19.3 % (36.0-47.0) Mean Corpuscular Volume 89 fL (79-100) Mean Corpuscular Hemoglobin 29 pg (25-35) Mean Corpuscular Hemoglobin Concent 32 g/dL (31-37) Red Cell Distribution Width 20.1 % (11.5-14.5) Platelet Count 322 x10^3/uL (140-400) Neutrophils (%) (Auto) 93 % (31-73) Lymphocytes (%) (Auto) 3 % (24-48) Monocytes (%) (Auto) 4 % (0-9) Eosinophils (%) (Auto) 0 % (0-3) Basophils (%) (Auto) 0 % (0-3) Neutrophils # (Auto) 11.1 x10^3uL (1.8-7.7) Lymphocytes # (Auto) 0.3 x10^3/uL (1.0-4.8) Monocytes # (Auto) 0.5 x10^3/uL (0.0-1.1) Eosinophils # (Auto) 0.0 x10^3/uL (0.0-0.7) Basophils # (Auto) 0.0 x10^3/uL (0.0-0.2) Laboratory Tests Test 03/10/18 04:30 White Blood Count 12.0 x10^3/uL (4.0-11.0) Red Blood Count 2.17 x10^6/uL (3.50-5.40) Hemoglobin 6.2 g/dL (12.0-15.5) Hematocrit 19.3 % (36.0-47.0) Mean Corpuscular Volume 89 fL (79-100) Mean Corpuscular Hemoglobin 29 pg (25-35) Mean Corpuscular Hemoglobin Concent 32 g/dL (31-37) Red Cell Distribution Width 20.1 % (11.5-14.5) Platelet Count 322 x10^3/uL (140-400) Neutrophils (%) (Auto) 93 % (31-73) Lymphocytes (%) (Auto) 3 % (24-48) Monocytes (%) (Auto) 4 % (0-9) Eosinophils (%) (Auto) 0 % (0-3) Basophils (%) (Auto) 0 % (0-3) Neutrophils # (Auto) 11.1 x10^3uL (1.8-7.7) Lymphocytes # (Auto) 0.3 x10^3/uL (1.0-4.8) Monocytes # (Auto) 0.5 x10^3/uL (0.0-1.1) Eosinophils # (Auto) 0.0 x10^3/uL (0.0-0.7) Basophils # (Auto) 0.0 x10^3/uL (0.0-0.2) Sodium Level 139 mmol/L (136-145) Potassium Level 4.0 mmol/L (3.5-5.1) Chloride Level 99 mmol/L (98-107) Carbon Dioxide Level 25 mmol/L (21-32) Anion Gap 15 (6-14) Blood Urea Nitrogen 41 mg/dL (7-20) Creatinine 3.3 mg/dL (0.6-1.0) Estimated GFR (Cockcroft-Gault) 14.4 Glucose Level 89 mg/dL (70-99) Calcium Level 9.1 mg/dL (8.5-10.1) Phosphorus Level 4.1 mg/dL (2.6-4.7) Magnesium Level 2.0 mg/dL (1.8-2.4) Albumin 3.4 g/dL (3.4-5.0) Microbiology 03/08/18 Anaerobic/Aerobic Culture, Resulted Pending 03/08/18 Anaerobic Culture Result 1 (TIMOTHY), Resulted Pending 03/08/18 Aerobic Culture, Resulted Pending 03/08/18 Aerobic Culture Result 1 (TIMOTHY), Resulted Pending 03/08/18 Gram Stain - Final, Resulted 03/08/18 Gram Stain Result 1 (TIMOTHY) - Final, Resulted 03/08/18 Gram Stain Result 2 (TIMOTHY) - Final, Resulted Medications Current Medications Ondansetron HCl (Zofran) 4 mg PRN Q8HRS PRN IV NAUSEA/VOMITING Last administered on 03/06/18at 05:34; Start 03/05/18 at 22:00; Stop 03/06/18 at 21:59 ; Status DC Fentanyl Citrate (Fentanyl 2ml Vial) 50 mcg PRN Q1HR PRN IV PAIN Last administered on 03/06/18at 05:35; Start 03/05/18 at 22:00; Stop 03/06/18 at 21:59 ; Status DC Calcium Gluconate (Calcium Gluconate) 1,000 mg 1X ONCE IVP Last administered on 03/05/18at 23:23; Start 03/05/18 at 22:15; Stop 03/05/18 at 22:16; Status DC Sodium Bicarbonate (Sodium Bicarb Adult 8.4% Syr) 50 meq 1X ONCE IV Last administered on 03/05/18at 23:23; Start 03/05/18 at 22:15; Stop 03/05/18 at 22 :16; Status DC Sodium Polystyrene Sulfonate (Kayexalate) 30 gm 1X ONCE PO Last administered on 03/05/18at 23:23; Start 03/05/18 at 22:15; Stop 03/05/18 at 22:16; Status DC Ondansetron HCl (Zofran) 4 mg 1X ONCE IV Last administered on 03/05/18at 22:55 ; Start 03/05/18 at 22:45; Stop 03/05/18 at 22:55; Status DC Prochlorperazine Edisylate (Compazine) 10 mg PRN Q6HRS PRN IM NAUSEA/VOMITING; Start 03/06/18 at 06:15; Stop 03/06/18 at 12:32; Status DC Oxycodone HCl (Roxicodone) 10 mg PRN Q4HRS PRN PO MILD - MODERATE PAIN Last administered on 03/10/18at 14:04; Start 03/06/18 at 06:15 Oxycodone HCl (Roxicodone) 20 mg PRN Q4HRS PRN PO SEVERE PAIN; Start 03/06/18 at 06:15 Lidocaine/ Epinephrine (LIDOCAINE 1%-EPI 1:100,000 Multi-Dose) 20 ml STK-MED ONCE .ROUTE ; Start 03/06/18 at 09:11; Stop 03/06/18 at 09:12; Status DC Cefazolin Sodium 50 ml @ As Directed STK-MED ONCE IV ; Start 03/06/18 at 09:34; Stop 03/06/18 at 09:35; Status DC Midazolam HCl (Versed) 2 mg STK-MED ONCE .ROUTE ; Start 03/06/18 at 09:34; Stop 03/06/18 at 09:35; Status DC Fentanyl Citrate (Fentanyl 2ml Vial) 100 mcg STK-MED ONCE .ROUTE ; Start at 09:34; Stop 03/06/18 at 09:35; Status DC Heparin Sodium (Porcine) (Heparin Sodium) 10,000 unit STK-MED ONCE .ROUTE ; Start 03/06/18 at 09:44; Stop 03/06/18 at 09:46; Status DC Midazolam HCl (Versed) 2 mg 1X ONCE IV Last administered on 03/06/18at 10:11; Start 03/06/18 at 10:30; Stop 03/06/18 at 10:35; Status DC Fentanyl Citrate (Fentanyl 2ml Vial) 100 mcg 1X ONCE IV Last administered on at 10:11; Start 03/06/18 at 10:30; Stop 03/06/18 at 10:35; Status DC Lidocaine/ Epinephrine (LIDOCAINE 1%-EPI 1:100,000 Multi-Dose) 20 ml 1X ONCE IJ Last administered on 03/06/18at 10:09; Start 03/06/18 at 10:30; Stop 03/06/18 at 10:35; Status DC Cefazolin Sodium 50 ml @ 100 mls/hr 1X ONCE IV Last administered on 03/06/18at 10:11; Start 03/06/18 at 10:30; Stop 03/06/18 at 10:59; Status DC Heparin Sodium (Porcine) (Heparin Sodium) 4,200 unit 1X ONCE INT CAT Last administered on 03/06/18at 10:11; Start 03/06/18 at 10:30; Stop 03/06/18 at 10:35; Status DC Clonidine HCl (Catapres) 0.1 mg BID PO Last administered on 03/09/18at 20:54; Start 03/06/18 at 12:00 Dexamethasone (Decadron) 16 mg DAILY PO Last administered on 03/07/18at 13:12; Start 03/06/18 at 12:00; Stop 03/08/18 at 09:00; Status DC Fentanyl (Duragesic 50mcg/ Hr Patch) 1 patch Q3DAYS TD ; Start 03/06/18 at 21:00 ; Stop 03/06/18 at 21:05; Status DC Lorazepam (Ativan) 0.5 mg PRN Q12HRS PRN PO ANXIETY / AGITATION; Start 03/06/18 at 11:30 Ondansetron HCl (Zofran Odt) 8 mg PRN Q8HRS PRN PO NAUSEA/VOMITING Last administered on 03/10/18at 08:28; Start 03/06/18 at 11:30 Calcium Acetate (Phoslo) 667 mg TIDWMEALS PO Last administered on 03/09/18at 12: 09; Start 03/06/18 at 12:00 Carvedilol (Coreg) 6.25 mg BIDWMEALS PO Last administered on 03/09/18 17:28; Start 03/06/18 at 12:00 Famotidine (Pepcid) 20 mg QHS PO Last administered on 03/06/18 20:51; Start 03/06/18 at 21:00; Stop 03/07/18 at 13:15; Status DC Fluticasone Propionate (Flonase) 1 spray DAILY NS Last administered on 12:16; Start 03/06/18 at 12:00 Guaifenesin/ Codeine Phosphate (Robitussin Ac) 10 ml PRN Q4HRS PRN PO COUGH; Start 03/06/18 at 11:45 Non-Formulary Medication (Melatonin ) 1 tab QHS PO ; Start 03/06/18 at 21:00; Status UNV Multivitamins (Thera M Plus) 1 tab DAILY PO Last administered on 03/09/18 08:20 ; Start 03/06/18 at 12:00 Polyethylene Glycol (miraLAX PACKET) 17 gm QHS PO Last administered on 08:25; Start 03/06/18 at 21:00 Sennosides (Senna) 8.6 mg DAILY PO Last administered on 03/09/18 08:20; Start 03/06/18 at 12:00 Sertraline HCl (Zoloft) 150 mg DAILY PO Last administered on 03/09/18 08:20; Start 03/06/18 at 12:00 Prochlorperazine Edisylate (Compazine) 10 mg PRN Q6HRS PRN IV NAUSEA/VOMITING Last administered on 03/10/18 14:04; Start 03/06/18 at 12:45 Darbepoetin Taran (Aranesp) 60 mcg WEEKLYHS SQ Last administered on 03/06/18 20: 52; Start 03/06/18 at 21:00 Magnesium Sulfate 50 ml @ 25 mls/hr PRN DAILY PRN IV for Mag < 1.7 on am labs; Start 03/06/18 at 13:45 Sodium Chloride 1,000 ml @ 1,000 mls/hr Q1H PRN IV hypotension; Start 03/06/18 at 12:30; Stop 03/06/18 at 18:29; Status DC Sodium Chloride 1,000 ml @ 400 mls/hr Q2H30M PRN IV PATENCY; Start 03/06/18 at 12:30; Stop 03/06/18 at 20:00; Status DC Info (PHARMACY MONITORING -- do not chart) 1 each PRN DAILY PRN MC SEE COMMENTS ; Start 03/06/18 at 15:00; Status UNV Info (PHARMACY MONITORING -- do not chart) 1 each PRN DAILY PRN MC SEE COMMENTS ; Start 03/06/18 at 15:00; Stop 03/07/18 at 16:17; Status DC Fentanyl (Duragesic 50mcg/ Hr Patch) 1 patch Q72H TD Last administered on at 20:55; Start 03/06/18 at 21:30 Sodium Chloride 1,000 ml @ 1,000 mls/hr Q1H PRN IV hypotension; Start 03/07/18 at 07:51; Stop 03/07/18 at 13:50; Status DC Albumin Human 200 ml @ 200 mls/hr 1X PRN PRN IV Hypotension; Start 03/07/18 at 08:00; Stop 03/07/18 at 13:59; Status DC Sodium Chloride 1,000 ml @ 400 mls/hr Q2H30M PRN IV PATENCY; Start 03/07/18 at 07:51; Stop 03/07/18 at 19:50; Status DC Info (PHARMACY MONITORING -- do not chart) 1 each PRN DAILY PRN MC SEE COMMENTS ; Start 03/07/18 at 08:00; Stop 03/09/18 at 18:51; Status DC Info (PHARMACY MONITORING -- do not chart) 1 each PRN DAILY PRN MC SEE COMMENTS ; Start 03/07/18 at 08:00; Status UNV Dexamethasone (Decadron) 12 mg DAILY PO ; Start 03/07/18 at 09:30; Stop 03/07/18 at 09:33; Status DC Dexamethasone (Decadron) 12 mg DAILY PO Last administered on 03/09/18at 08:20; Start 03/09/18 at 09:00 Pantoprazole Sodium (Protonix) 40 mg DAILYAC PO ; Start 03/08/18 at 07:30; Stop 03/08/18 at 07:30; Status DC Pantoprazole Sodium (PROTONIX VIAL for IV PUSH) 40 mg DAILYAC IVP Last administered on 03/09/18at 08:19; Start 03/08/18 at 07:30; Stop 03/09/18 at 12:24; Status DC Ferrous Sulfate (Iron Oral Solution) 300 mg DAILY PO Last administered on at 08:20; Start 03/08/18 at 10:30 Albumin Human 100 ml @ 100 mls/hr Q6HRS IV Last administered on 03/09/18at 17:28 ; Start 03/08/18 at 12:00; Stop 03/09/18 at 18:59; Status DC Sodium Chloride 1,000 ml @ 1,000 mls/hr Q1H PRN IV hypotension; Start 03/08/18 at 15:00; Stop 03/08/18 at 21:21; Status DC Sodium Chloride (Normal Saline Flush) 10 ml 1X PRN PRN IV AP catheter pack; Start 03/08/18 at 15:00; Stop 03/09/18 at 14:59; Status DC Sodium Chloride (Normal Saline Flush) 10 ml 1X PRN PRN IV FORGER HELPER catheter pack; Start 03/08/18 at 15:00; Stop 03/09/18 at 14:59; Status DC Info (PHARMACY MONITORING -- do not chart) 1 each PRN DAILY PRN MC SEE COMMENTS ; Start 03/08/18 at 21:15; Status Cancel Info (PHARMACY MONITORING -- do not chart) 1 each PRN DAILY PRN MC SEE COMMENTS ; Start 03/08/18 at 21:15 Pantoprazole Sodium (Protonix) 40 mg DAILYAC PO Last administered on 03/10/18at 08:20; Start 03/09/18 at 16:30 Sodium Chloride 1,000 ml @ 1,000 mls/hr Q1H PRN IV hypotension; Start 03/10/18 at 08:30; Stop 03/10/18 at 14:29 Sodium Chloride 1,000 ml @ 400 mls/hr Q2H30M PRN IV PATENCY; Start 03/10/18 at 08:30; Stop 03/10/18 at 20:29 Info (PHARMACY MONITORING -- do not chart) 1 each PRN DAILY PRN MC SEE COMMENTS ; Start 03/10/18 at 10:15; Status UNV Info (PHARMACY MONITORING -- do not chart) 1 each PRN DAILY PRN MC SEE COMMENTS ; Start 03/10/18 at 10:15; Status UNV Alteplase, Recombinant (Cathflo) 2 mg 1X ONCE INT CAT Last administered on 03/10at 14:04; Start 03/10/18 at 11:45; Stop 03/10/18 at 11:46; Status DC Active Scripts Active Reported Zoloft (Sertraline Hcl) 100 Mg Tablet 150 Mg PO DAILY Senna Lax (Sennosides) 8.6 Mg Tablet 8.6 Mg PO DAILY Proair Hfa (Albuterol Sulfate) 8.5 Gm Hfa.aer.ad 2 Puff INH PRN Q6HRS PRN Miralax (Polyethylene Glycol 3350) 17 Gm Powd.pack 1 Pkt PO HS Oxycodone Hcl 5 Mg Capsule 20 Mg PO PRN Q4HRS PRN Oxycodone Hcl 5 Mg Capsule 10 Mg PO PRN Q4HRS PRN Ondansetron Odt (Ondansetron) 4 Mg Tab.rapdis 8 Mg PO PRN Q8HRS PRN One-Daily Multi-Vitamin (Multivitamin) 1 Each Tablet 1 Each PO HS Melatonin 3 Mg Tablet 1 Tab PO QHS Ativan (Lorazepam) 0.5 Mg Tablet 0.5 Mg PO PRN Q12HRS PRN Guaifenesin-Codeine Syrup (Guaifenesin/Codeine Phosphate) 118 Ml Liquid 10 Ml PO PRN Q4HRS PRN Flonase Allergy Relief (Fluticasone Propionate) 9.9 Ml [place].susp 1 Sprays NS DAILY FENTANYL 50mcg/hr (Fentanyl) 1 Each Patch.td72 1 Patch TP Q3DAYS Famotidine 40 Mg Tablet 20 Mg PO HS Dexamethasone 4 Mg Tablet 4 Tab PO DAILY Clonidine Hcl 0.1 Mg Tablet 0.1 Mg PO BID Carvedilol 25 Mg Tablet 6.25 Mg PO BIDWMEALS Calcium Acetate 667 Mg Tablet 667 Mg PO TIDWMEALS Vitals/I & O Vital Sign - Last 24 Hours 03/09/18 03/09/18 03/09/18 03/09/18 14:44 17:28 19:57 20:21 Temp 98.2 98.7 98.2 98.7 Pulse 92 92 85 Resp 18 18 B/P (MAP) 129/76 (93) 129/76 130/75 (93) Pulse Ox 97 97 O2 Delivery Nasal Cannula Room Air Nasal Cannula O2 Flow Rate 2.0 2.0 03/09/18 03/09/18 03/09/18 03/09/18 20:54 20:54 20:55 21:55 Pulse 85 Resp 18 18 B/P (MAP) 130/75 Pulse Ox 97 97 97 O2 Delivery Nasal Cannula Nasal Cannula Nasal Cannula O2 Flow Rate 2.0 2.0 2.0 03/09/18 03/10/18 03/10/18 03/10/18 23:59 00:02 01:12 03:53 Temp 97.7 98.8 97.7 98.8 Pulse 89 93 Resp 18 17 B/P (MAP) 135/78 (97) 139/85 (103) Pulse Ox 99 97 98 O2 Delivery Nasal Cannula Nasal Cannula Nasal Cannula Nasal Cannula O2 Flow Rate 2.0 2.0 2.0 03/10/18 03/10/18 03/10/18 03/10/18 07:00 07:50 08:28 08:45 Temp 98.3 98.3 Pulse 97 97 Resp 18 16 B/P (MAP) 147/87 (107) 147/87 Pulse Ox 96 O2 Delivery Nasal Cannula Nasal Cannula Nasal Cannula O2 Flow Rate 2.0 2.0 2.0 03/10/18 03/10/18 03/10/18 03/10/18 08:45 10:24 10:50 11:09 Temp 97.8 97.5 97.1 97.8 97.5 97.1 Pulse 97 108 107 105 Resp 20 18 16 B/P (MAP) 147/87 104/75 104/82 115/83 03/10/18 14:04 O2 Delivery Nasal Cannula O2 Flow Rate 2.0 Intake and Output 03/09/18 03/09/18 03/10/18 15:01 23:01 07:01 Intake Total 700 ml 400 ml 150 ml Balance 700 ml 400 ml 150 ml Problem List Problems Medical Problems: (1) Dialysis catheter clot or failure Status: Acute (2) Serum potassium elevated Status: Acute Assessment Partial SBO- with metastatic ovarian ca, worsening nausea and vomiting today, vermin exterminator prognosis poor, CPM AMOS CHURCH MD Mar 10, 2018 14:18
[2018-03-10 18:20] LABS: HEMATOCRIT 29.6 % (36.0-47.0); HEMOGLOBIN 9.7 g/dL (12.0-15.5)
--- NOTE | 2018-03-10 19:55 | NUR ---
Received orders per Dr. Phillip to administer another dose of Cathflo to patient's port. Relayed this information to patient. Asked patient if she would prefer to deaccess the port, then reaccess instead of the Cathflo, patient declined.
[2018-03-10] MEDS: AMINO AC 3%/ELECTROLYTE/GLYCER 1,000 ML IV SCH (20:52)
[2018-03-10] MEDS: POLYETHYLENE GLYCOL 3350 17 GM PACKET. PO SCH (21:04)
[2018-03-11] MEDS: oxyCODONE IR 5 MG TABLET PO PRN (00:24)
[2018-03-11] MEDS: ONDANSETRON ODT 4 MG TAB.RAPDIS. PO PRN (01:41)
[2018-03-11 04:30] VITALS: BP 152/99
[2018-03-11 06:03] LABS: BASO % 0 % (0-3); EOS % 0 % (0-3); HEMATOCRIT 29.7 % (36.0-47.0); HEMOGLOBIN 9.8 g/dL (12.0-15.5); LYMPH # 0.3 x10^3/uL (1.0-4.8); LYMPH % 2 % (24-48); MEAN CORPUSCULAR HEMOGLOBIN 29 pg (25-35); MEAN CORPUSCULAR HGB CONC 33 g/dL (31-37); MEAN CORPUSCULAR VOLUME 88 fL (79-100); MONO # 0.6 x10^3/uL (0.0-1.1); MONO % 4 % (0-9); NEUT # 15.5 x10^3uL (1.8-7.7); NEUT % 94 % (31-73); PLATELET COUNT 360 x10^3/uL (140-400); RED CELL DISTRIBUTION WIDTH 19.2 % (11.5-14.5); WHITE BLOOD COUNT 16.4 x10^3/uL (4.0-11.0)
[2018-03-11 06:28] LABS: CALCIUM 8.8 mg/dL (8.5-10.1); CREATININE 2.4 mg/dL (0.6-1.0); GFR 20.8; POTASSIUM 4.1 mmol/L (3.5-5.1)
[2018-03-11 06:32] LABS: CALCIUM 8.7 mg/dL (8.5-10.1); CREATININE 2.3 mg/dL (0.6-1.0); GFR 21.9; PHOSPHORUS 3.6 mg/dL (2.6-4.7); POTASSIUM 3.9 mmol/L (3.5-5.1)
--- NOTE | 2018-03-11 06:37 | RAD ---
Abdomen one view. HISTORY: NG tube placement Single view of the abdomen shows the NG tube extends into the stomach. There is bowel distention. There is a left Pleurx catheter. There is a dialysis catheter. There is a Port-A-Cath. There has been a mild improvement in the basilar infiltrates or edema. IMPRESSION: 1. NG tube extends into the stomach. Electronically signed by: Eduar Combs MD (03/11/2018 6:32 AM) [id number]
[2018-03-11 07:00] VITALS: BP 156/101
[2018-03-11] MEDS: CARVEDILOL 6.25 MG TABLET. PO SCH ×2 (07:28→16:21)
[2018-03-11] MEDS: CALCIUM ACETATE 667 MG CAPSULE PO SCH ×3 (07:28→16:21)
[2018-03-11] MEDS: PANTOPRAZOLE 40 MG TABLET.DR. PO SCH (07:28)
[2018-03-11] MEDS: MULTIVITAMIN with MINERAL TABLET. PO SCH (07:29)
[2018-03-11] MEDS: FERROUS SULFATE ORAL 300 MG/5 ML SOLUTION. PO SCH (07:29)
[2018-03-11] MEDS: SENNOSIDES 8.6 MG TABLET PO SCH (07:29)
[2018-03-11] MEDS: SERTRALINE 50 MG TABLET. PO SCH (07:29)
[2018-03-11] MEDS: DEXAMETHASONE 4 MG TABLET PO SCH (07:29)
[2018-03-11] MEDS: FLUTICASONE 50MCG/NASAL SPRAY 16GM BOTTLE. NS SCH (07:29)
[2018-03-11] MEDS: cloNIDine HCL 0.1 MG TABLET PO SCH ×2 (07:29→20:10)
--- NOTE | 2018-03-11 07:30 | NUR ---
Morning medications non-administered due to newly placed NG tube.
--- NOTE | 2018-03-11 10:11 | RAD ---
KUB History: Adjustment was made to the NG tube. Comparison: 6:00 AM today The endogastric tube has been advanced, proximal sidehole now appears to be within the stomach. Small bowel distention is similar to the previous study. Infiltrate/fluid in both lung bases are again identified. IMPRESSION: The endogastric tube position further advanced into the stomach. Small bowel distention is stable. Electronically signed by: Gianluca Chavez MD (03/11/2018 10:07 AM) [facility]
--- NOTE | 2018-03-11 10:59 | PDOC ---
PROGRESS NOTES Chief Complaint Chief Complaint Hyperkalemia Ovarian Cancer, METASTATIC End Stage Renal Disease, HD dependent Tachycardia small bowel obstruction by ct Ascites - s/p paracentesis (800cc) Abnormal KUB/CT - ?ileus/SBO PATIENT DESIRES TO BE A DNR History of Present Illness History of Present Illness PT seen and examined, spoke with nursing staff. PT TACHY requested iv metoprolol 5 mg q 4 hrs prn, NG in place Observed CDI bandage. reports that her chemo port is obstructed. Pt reports "I need something to work out. will consult palliative care Vitals Vitals Vital Signs Date Time Temp Pulse Resp B/P (MAP) Pulse Ox O2 Delivery O2 Flow Rate FiO2 03/11/18 07:00 98.7 127 14 156/101 (119) 95 Nasal Cannula 2.0 98.7 Physical Exam Physical Exam ABD distended, hypoactive BS, diffuse tenderness General: ALERT Heart: Other (tachycardia at 111 bpm) Abdomen: SOFT GEN: NAD LUNGS: CTAB HEART: RRR There is a small left pleural effusion. There is adjacent compressive atelectasis versus infiltrate. There is subsegmental atelectasis at the right lung base. There is a 6 cm solid noncalcified pulmonary nodule in the right middle lobe (series 2, image 9). A left lower lobe thoracostomy tube is partially profiled. There is suggestion of pleural thickening at the left lung base. Evaluation of the solid abdominal viscera is limited by lack of intravenous contrast. There is mild nodular contour of the hepatic parenchyma which may reflect underlying hepatic disease such as cirrhosis. Spleen is nonenlarged. There is focal hypoattenuation along the superior aspect of the spleen measuring 2.9 cm which is inadequately assessed without contrast. There is nodular thickening of the left adrenal gland which is indeterminate measuring up to 9 mm. A right adrenal gland is normal in appearance. There is mild atrophy of the pancreas. No peripancreatic inflammatory changes are identified. Gallbladder appears surgically absent. Abdominal aorta is normal in course and caliber with mild calcified atheromatous plaque. There are no pathologically enlarged lymph nodes in abdomen and pelvis. There is moderate to large volume abdominal ascites. Mild renal parenchymal atrophy. Duplex right renal collecting system is identified with prominence of the right renal collecting system and right ureter. Findings may be secondary to reflux. There is no hydronephrosis of the inferior moiety. Left kidney appears normal. No definite contour deforming renal masses are identified. Minimal oral contrast is noted. Differential air-fluid levels are identified. There are dilated small bowel loops measuring up to 3.6 cm. Large bowel is normal in caliber with moderate amount of stool. Stomach is normal in appearance. Evaluation for transition point is limited, however it does appear that the distal terminal ileum is somewhat decompressed. There is nodular thickening along the ventral abdominal wall the supra umbilical region measuring up to 14 mm. Findings are indeterminate and correlation with any prior surgical history is recommended. Anasarca is noted with edema and bilateral flanks. Pelvis evaluation is limited by ascites. Urinary bladder is within normal limits given degree of distention. No suspicious adnexal masses are identified. Supervision the left adnexa measures 2.1 cm suggestive of a dominant follicle. As osseous abnormality is identified. IMPRESSION: 1. Dilated small bowel loops most suggestive of small bowel obstruction without definite transition point visualized due to limited evaluation secondary to the lack of contrast opacification of small bowel loops as well as moderate to large volume abdominal ascites. Short-term follow-up radiographs may be of benefit to assess partial versus complete obstruction. 2. Suggestion of cirrhosis with abdominal ascites. No splenomegaly. Small left pleural effusion which appears loculated. Left-sided thoracostomy tube is partially profiled. Bibasilar subsegmental atelectasis versus infiltrates. 3. Indeterminate splenic lesion measuring 2.9 cm. Further evaluation with a contrast-enhanced CT study may be of benefit. 4. Fusiform thickening of the left adrenal gland may be secondary to adrenal hyperplasia. Attention on follow-up exams is recommended. 5. Nodular thickening is identified along the ventral abdominal wall in the supraumbilical region with nodules measuring up to 14 mm. Electronically signed by: Diane Trent MD (03/07/2018 3:45 PM) [facility] General: Alert, Oriented X3, Cooperative, No acute distress, moderate distress Heart: Regular rate, Normal S1, Normal S2, No murmurs, Gallops, Other (TACHY RATE 116) Lungs: Clear Abdomen: Normal bowel sounds, Soft, No tenderness, No hepatosplenomegaly, No masses Extremities: No clubbing, No cyanosis, No edema, Normal pulses, No tenderness/ swelling Labs LABS KUB History: Adjustment was made to the NG tube. Comparison: 6:00 AM today The endogastric tube has been advanced, proximal sidehole now appears to be within the stomach. Small bowel distention is similar to the previous study. Infiltrate/fluid in both lung bases are again identified. IMPRESSION: The endogastric tube position further advanced into the stomach. Small bowel distention is stable. Electronically signed by: Gianluca Chavez MD (03/11/2018 10:07 AM) [facility] Laboratory Tests Test 03/10/18 18:00 03/11/18 05:10 03/11/18 05:40 03/11/18 05:45 Hemoglobin 9.7 g/dL (12.0-15.5) 9.8 g/dL (12.0-15.5) Hematocrit 29.6 % (36.0-47.0) 29.7 % (36.0-47.0) Mean Corpuscular Hemoglobin Concent 33 g/dL (31-37) 33 g/dL (31-37) White Blood Count 16.4 x10^3/uL (4.0-11.0) Red Blood Count 3.40 x10^6/uL (3.50-5.40) Mean Corpuscular Volume 88 fL (79-100) Mean Corpuscular Hemoglobin 29 pg (25-35) Red Cell Distribution Width 19.2 % (11.5-14.5) Platelet Count 360 x10^3/uL (140-400) Neutrophils (%) (Auto) 94 % (31-73) Lymphocytes (%) (Auto) 2 % (24-48) Monocytes (%) (Auto) 4 % (0-9) Eosinophils (%) (Auto) 0 % (0-3) Basophils (%) (Auto) 0 % (0-3) Neutrophils # (Auto) 15.5 x10^3uL (1.8-7.7) Lymphocytes # (Auto) 0.3 x10^3/uL (1.0-4.8) Monocytes # (Auto) 0.6 x10^3/uL (0.0-1.1) Eosinophils # (Auto) 0.0 x10^3/uL (0.0-0.7) Basophils # (Auto) 0.0 x10^3/uL (0.0-0.2) Sodium Level 140 mmol/L (136-145) 141 mmol/L (136-145) Potassium Level 3.9 mmol/L (3.5-5.1) 4.1 mmol/L (3.5-5.1) Chloride Level 98 mmol/L (98-107) 98 mmol/L (98-107) Carbon Dioxide Level 23 mmol/L (21-32) 22 mmol/L (21-32) Anion Gap 19 (6-14) 21 (6-14) Blood Urea Nitrogen 40 mg/dL (7-20) 41 mg/dL (7-20) Creatinine 2.3 mg/dL (0.6-1.0) 2.4 mg/dL (0.6-1.0) Estimated GFR (Cockcroft-Gault) 21.9 20.8 Glucose Level 113 mg/dL (70-99) 106 mg/dL (70-99) Calcium Level 8.7 mg/dL (8.5-10.1) 8.8 mg/dL (8.5-10.1) Phosphorus Level 3.6 mg/dL (2.6-4.7) Albumin 3.0 g/dL (3.4-5.0) Magnesium Level 2.3 mg/dL (1.8-2.4) Assessment and Plan Assessmemt and Plan Problems Medical Problems: (1) Dialysis catheter clot or failure Status: Acute (2) Serum potassium elevated Status: Acute Comment Review of Relevant I have reviewed the following items arden (where applicable) has been applied. Labs Laboratory Tests Test 03/10/18 04:30 03/10/18 18:00 03/11/18 05:10 03/11/18 05:40 White Blood Count 12.0 x10^3/uL (4.0-11.0) 16.4 x10^3/uL (4.0-11.0) Red Blood Count 2.17 x10^6/uL (3.50-5.40) 3.40 x10^6/uL (3.50-5.40) Hemoglobin 6.2 g/dL (12.0-15.5) 9.7 g/dL (12.0-15.5) 9.8 g/dL (12.0-15.5) Hematocrit 19.3 % (36.0-47.0) 29.6 % (36.0-47.0) 29.7 % (36.0-47.0) Mean Corpuscular Volume 89 fL (79-100) 88 fL (79-100) Mean Corpuscular Hemoglobin 29 pg (25-35) 29 pg (25-35) Mean Corpuscular Hemoglobin Concent 32 g/dL (31-37) 33 g/dL (31-37) 33 g/dL (31-37) Red Cell Distribution Width 20.1 % (11.5-14.5) 19.2 % (11.5-14.5) Platelet Count 322 x10^3/uL (140-400) 360 x10^3/uL (140-400) Neutrophils (%) (Auto) 93 % (31-73) 94 % (31-73) Lymphocytes (%) (Auto) 3 % (24-48) 2 % (24-48) Monocytes (%) (Auto) 4 % (0-9) 4 % (0-9) Eosinophils (%) (Auto) 0 % (0-3) 0 % (0-3) Basophils (%) (Auto) 0 % (0-3) 0 % (0-3) Neutrophils # (Auto) 11.1 x10^3uL (1.8-7.7) 15.5 x10^3uL (1.8-7.7) Lymphocytes # (Auto) 0.3 x10^3/uL (1.0-4.8) 0.3 x10^3/uL (1.0-4.8) Monocytes # (Auto) 0.5 x10^3/uL (0.0-1.1) 0.6 x10^3/uL (0.0-1.1) Eosinophils # (Auto) 0.0 x10^3/uL (0.0-0.7) 0.0 x10^3/uL (0.0-0.7) Basophils # (Auto) 0.0 x10^3/uL (0.0-0.2) 0.0 x10^3/uL (0.0-0.2) Sodium Level 139 mmol/L (136-145) 140 mmol/L (136-145) 141 mmol/L (136-145) Potassium Level 4.0 mmol/L (3.5-5.1) 3.9 mmol/L (3.5-5.1) 4.1 mmol/L (3.5-5.1) Chloride Level 99 mmol/L (98-107) 98 mmol/L (98-107) 98 mmol/L (98-107) Carbon Dioxide Level 25 mmol/L (21-32) 23 mmol/L (21-32) 22 mmol/L (21-32) Anion Gap 15 (6-14) 19 (6-14) 21 (6-14) Blood Urea Nitrogen 41 mg/dL (7-20) 40 mg/dL (7-20) 41 mg/dL (7-20) Creatinine 3.3 mg/dL (0.6-1.0) 2.3 mg/dL (0.6-1.0) 2.4 mg/dL (0.6-1.0) Estimated GFR (Cockcroft-Gault) 14.4 21.9 20.8 Glucose Level 89 mg/dL (70-99) 113 mg/dL (70-99) 106 mg/dL (70-99) Calcium Level 9.1 mg/dL (8.5-10.1) 8.7 mg/dL (8.5-10.1) 8.8 mg/dL (8.5-10.1) Phosphorus Level 4.1 mg/dL (2.6-4.7) 3.6 mg/dL (2.6-4.7) Magnesium Level 2.0 mg/dL (1.8-2.4) Albumin 3.4 g/dL (3.4-5.0) 3.0 g/dL (3.4-5.0) Test 03/11/18 05:45 Magnesium Level 2.3 mg/dL (1.8-2.4) Laboratory Tests Test 03/10/18 18:00 03/11/18 05:10 03/11/18 05:40 03/11/18 05:45 Hemoglobin 9.7 g/dL (12.0-15.5) 9.8 g/dL (12.0-15.5) Hematocrit 29.6 % (36.0-47.0) 29.7 % (36.0-47.0) Mean Corpuscular Hemoglobin Concent 33 g/dL (31-37) 33 g/dL (31-37) White Blood Count 16.4 x10^3/uL (4.0-11.0) Red Blood Count 3.40 x10^6/uL (3.50-5.40) Mean Corpuscular Volume 88 fL (79-100) Mean Corpuscular Hemoglobin 29 pg (25-35) Red Cell Distribution Width 19.2 % (11.5-14.5) Platelet Count 360 x10^3/uL (140-400) Neutrophils (%) (Auto) 94 % (31-73) Lymphocytes (%) (Auto) 2 % (24-48) Monocytes (%) (Auto) 4 % (0-9) Eosinophils (%) (Auto) 0 % (0-3) Basophils (%) (Auto) 0 % (0-3) Neutrophils # (Auto) 15.5 x10^3uL (1.8-7.7) Lymphocytes # (Auto) 0.3 x10^3/uL (1.0-4.8) Monocytes # (Auto) 0.6 x10^3/uL (0.0-1.1) Eosinophils # (Auto) 0.0 x10^3/uL (0.0-0.7) Basophils # (Auto) 0.0 x10^3/uL (0.0-0.2) Sodium Level 140 mmol/L (136-145) 141 mmol/L (136-145) Potassium Level 3.9 mmol/L (3.5-5.1) 4.1 mmol/L (3.5-5.1) Chloride Level 98 mmol/L (98-107) 98 mmol/L (98-107) Carbon Dioxide Level 23 mmol/L (21-32) 22 mmol/L (21-32) Anion Gap 19 (6-14) 21 (6-14) Blood Urea Nitrogen 40 mg/dL (7-20) 41 mg/dL (7-20) Creatinine 2.3 mg/dL (0.6-1.0) 2.4 mg/dL (0.6-1.0) Estimated GFR (Cockcroft-Gault) 21.9 20.8 Glucose Level 113 mg/dL (70-99) 106 mg/dL (70-99) Calcium Level 8.7 mg/dL (8.5-10.1) 8.8 mg/dL (8.5-10.1) Phosphorus Level 3.6 mg/dL (2.6-4.7) Albumin 3.0 g/dL (3.4-5.0) Magnesium Level 2.3 mg/dL (1.8-2.4) Microbiology 03/08/18 Anaerobic/Aerobic Culture, Resulted Pending 03/08/18 Anaerobic Culture Result 1 (TIMOTHY), Resulted Pending 03/08/18 Aerobic Culture - Preliminary, Resulted 03/08/18 Aerobic Culture Result 1 (TIMOTHY) - Preliminary, Resulted 03/08/18 Gram Stain - Final, Resulted 03/08/18 Gram Stain Result 1 (TIMOTHY) - Final, Resulted 03/08/18 Gram Stain Result 2 (TIMOTHY) - Final, Resulted Medications Current Medications Ondansetron HCl (Zofran) 4 mg PRN Q8HRS PRN IV NAUSEA/VOMITING Last administered on 03/06/18at 05:34; Start 03/05/18 at 22:00; Stop 03/06/18 at 21:59 ; Status DC Fentanyl Citrate (Fentanyl 2ml Vial) 50 mcg PRN Q1HR PRN IV PAIN Last administered on 03/06/18at 05:35; Start 03/05/18 at 22:00; Stop 03/06/18 at 21:59 ; Status DC Calcium Gluconate (Calcium Gluconate) 1,000 mg 1X ONCE IVP Last administered on 03/05/18at 23:23; Start 03/05/18 at 22:15; Stop 03/05/18 at 22:16; Status DC Sodium Bicarbonate (Sodium Bicarb Adult 8.4% Syr) 50 meq 1X ONCE IV Last administered on 03/05/18at 23:23; Start 03/05/18 at 22:15; Stop 03/05/18 at 22 :16; Status DC Sodium Polystyrene Sulfonate (Kayexalate) 30 gm 1X ONCE PO Last administered on 03/05/18at 23:23; Start 03/05/18 at 22:15; Stop 03/05/18 at 22:16; Status DC Ondansetron HCl (Zofran) 4 mg 1X ONCE IV Last administered on 03/05/18at 22:55 ; Start 03/05/18 at 22:45; Stop 03/05/18 at 22:55; Status DC Prochlorperazine Edisylate (Compazine) 10 mg PRN Q6HRS PRN IM NAUSEA/VOMITING; Start 03/06/18 at 06:15; Stop 03/06/18 at 12:32; Status DC Oxycodone HCl (Roxicodone) 10 mg PRN Q4HRS PRN PO MILD - MODERATE PAIN Last administered on 03/11/18at 00:24; Start 03/06/18 at 06:15 Oxycodone HCl (Roxicodone) 20 mg PRN Q4HRS PRN PO SEVERE PAIN; Start 03/06/18 at 06:15 Lidocaine/ Epinephrine (LIDOCAINE 1%-EPI 1:100,000 Multi-Dose) 20 ml STK-MED ONCE .ROUTE ; Start 03/06/18 at 09:11; Stop 03/06/18 at 09:12; Status DC Cefazolin Sodium 50 ml @ As Directed STK-MED ONCE IV ; Start 03/06/18 at 09:34; Stop 03/06/18 at 09:35; Status DC Midazolam HCl (Versed) 2 mg STK-MED ONCE .ROUTE ; Start 03/06/18 at 09:34; Stop 03/06/18 at 09:35; Status DC Fentanyl Citrate (Fentanyl 2ml Vial) 100 mcg STK-MED ONCE .ROUTE ; Start at 09:34; Stop 03/06/18 at 09:35; Status DC Heparin Sodium (Porcine) (Heparin Sodium) 10,000 unit STK-MED ONCE .ROUTE ; Start 03/06/18 at 09:44; Stop 03/06/18 at 09:46; Status DC Midazolam HCl (Versed) 2 mg 1X ONCE IV Last administered on 03/06/18at 10:11; Start 03/06/18 at 10:30; Stop 03/06/18 at 10:35; Status DC Fentanyl Citrate (Fentanyl 2ml Vial) 100 mcg 1X ONCE IV Last administered on at 10:11; Start 03/06/18 at 10:30; Stop 03/06/18 at 10:35; Status DC Lidocaine/ Epinephrine (LIDOCAINE 1%-EPI 1:100,000 Multi-Dose) 20 ml 1X ONCE IJ Last administered on 03/06/18at 10:09; Start 03/06/18 at 10:30; Stop 03/06/18 at 10:35; Status DC Cefazolin Sodium 50 ml @ 100 mls/hr 1X ONCE IV Last administered on 03/06/18at 10:11; Start 03/06/18 at 10:30; Stop 03/06/18 at 10:59; Status DC Heparin Sodium (Porcine) (Heparin Sodium) 4,200 unit 1X ONCE INT CAT Last administered on 03/06/18at 10:11; Start 03/06/18 at 10:30; Stop 03/06/18 at 10:35; Status DC Clonidine HCl (Catapres) 0.1 mg BID PO Last administered on 03/10/18 21:05; Start 03/06/18 at 12:00 Dexamethasone (Decadron) 16 mg DAILY PO Last administered on 03/07/18at 13:12; Start 03/06/18 at 12:00; Stop 03/08/18 at 09:00; Status DC Fentanyl (Duragesic 50mcg/ Hr Patch) 1 patch Q3DAYS TD ; Start 03/06/18 at 21:00 ; Stop 03/06/18 at 21:05; Status DC Lorazepam (Ativan) 0.5 mg PRN Q12HRS PRN PO ANXIETY / AGITATION; Start 03/06/18 at 11:30 Ondansetron HCl (Zofran Odt) 8 mg PRN Q8HRS PRN PO NAUSEA/VOMITING Last administered on 03/11/18at 01:41; Start 03/06/18 at 11:30 Calcium Acetate (Phoslo) 667 mg TIDWMEALS PO Last administered on 03/09/18at 12: 09; Start 03/06/18 at 12:00 Carvedilol (Coreg) 6.25 mg BIDWMEALS PO Last administered on 03/10/18 18:35; Start 03/06/18 at 12:00 Famotidine (Pepcid) 20 mg QHS PO Last administered on 03/06/18at 20:51; Start 03/06/18 at 21:00; Stop 03/07/18 at 13:15; Status DC Fluticasone Propionate (Flonase) 1 spray DAILY NS Last administered on at 12:16; Start 03/06/18 at 12:00 Guaifenesin/ Codeine Phosphate (Robitussin Ac) 10 ml PRN Q4HRS PRN PO COUGH; Start 03/06/18 at 11:45 Non-Formulary Medication (Melatonin ) 1 tab QHS PO ; Start 03/06/18 at 21:00; Status UNV Multivitamins (Thera M Plus) 1 tab DAILY PO Last administered on 03/09/18at 08:20 ; Start 03/06/18 at 12:00 Polyethylene Glycol (miraLAX PACKET) 17 gm QHS PO Last administered on at 21:04; Start 03/06/18 at 21:00 Sennosides (Senna) 8.6 mg DAILY PO Last administered on 03/09/18 08:20; Start 03/06/18 at 12:00 Sertraline HCl (Zoloft) 150 mg DAILY PO Last administered on 03/09/18 08:20; Start 03/06/18 at 12:00 Prochlorperazine Edisylate (Compazine) 10 mg PRN Q6HRS PRN IV NAUSEA/VOMITING Last administered on 03/10/18at 20:58; Start 03/06/18 at 12:45 Darbepoetin Taran (Aranesp) 60 mcg WEEKLYHS SQ Last administered on 03/06/18at 20: 52; Start 03/06/18 at 21:00 Magnesium Sulfate 50 ml @ 25 mls/hr PRN DAILY PRN IV for Mag < 1.7 on am labs; Start 03/06/18 at 13:45 Sodium Chloride 1,000 ml @ 1,000 mls/hr Q1H PRN IV hypotension; Start 03/06/18 at 12:30; Stop 03/06/18 at 18:29; Status DC Sodium Chloride 1,000 ml @ 400 mls/hr Q2H30M PRN IV PATENCY; Start 03/06/18 at 12:30; Stop 03/06/18 at 20:00; Status DC Info (PHARMACY MONITORING -- do not chart) 1 each PRN DAILY PRN MC SEE COMMENTS ; Start 03/06/18 at 15:00; Status UNV Info (PHARMACY MONITORING -- do not chart) 1 each PRN DAILY PRN MC SEE COMMENTS ; Start 03/06/18 at 15:00; Stop 03/07/18 at 16:17; Status DC Fentanyl (Duragesic 50mcg/ Hr Patch) 1 patch Q72H TD Last administered on at 20:55; Start 03/06/18 at 21:30 Sodium Chloride 1,000 ml @ 1,000 mls/hr Q1H PRN IV hypotension; Start 03/07/18 at 07:51; Stop 03/07/18 at 13:50; Status DC Albumin Human 200 ml @ 200 mls/hr 1X PRN PRN IV Hypotension; Start 03/07/18 at 08:00; Stop 03/07/18 at 13:59; Status DC Sodium Chloride 1,000 ml @ 400 mls/hr Q2H30M PRN IV PATENCY; Start 03/07/18 at 07:51; Stop 03/07/18 at 19:50; Status DC Info (PHARMACY MONITORING -- do not chart) 1 each PRN DAILY PRN MC SEE COMMENTS ; Start 03/07/18 at 08:00; Stop 03/09/18 at 18:51; Status DC Info (PHARMACY MONITORING -- do not chart) 1 each PRN DAILY PRN MC SEE COMMENTS ; Start 03/07/18 at 08:00; Status UNV Dexamethasone (Decadron) 12 mg DAILY PO ; Start 03/07/18 at 09:30; Stop 03/07/18 at 09:33; Status DC Dexamethasone (Decadron) 12 mg DAILY PO Last administered on 03/09/18at 08:20; Start 03/09/18 at 09:00 Pantoprazole Sodium (Protonix) 40 mg DAILYAC PO ; Start 03/08/18 at 07:30; Stop 03/08/18 at 07:30; Status DC Pantoprazole Sodium (PROTONIX VIAL for IV PUSH) 40 mg DAILYAC IVP Last administered on 03/09/18at 08:19; Start 03/08/18 at 07:30; Stop 03/09/18 at 12:24; Status DC Ferrous Sulfate (Iron Oral Solution) 300 mg DAILY PO Last administered on at 08:20; Start 03/08/18 at 10:30 Albumin Human 100 ml @ 100 mls/hr Q6HRS IV Last administered on 03/09/18at 17:28 ; Start 03/08/18 at 12:00; Stop 03/09/18 at 18:59; Status DC Sodium Chloride 1,000 ml @ 1,000 mls/hr Q1H PRN IV hypotension; Start 03/08/18 at 15:00; Stop 03/08/18 at 21:21; Status DC Sodium Chloride (Normal Saline Flush) 10 ml 1X PRN PRN IV AP catheter pack; Start 03/08/18 at 15:00; Stop 03/09/18 at 14:59; Status DC Sodium Chloride (Normal Saline Flush) 10 ml 1X PRN PRN IV [employer] catheter pack; Start 03/08/18 at 15:00; Stop 03/09/18 at 14:59; Status DC Info (PHARMACY MONITORING -- do not chart) 1 each PRN DAILY PRN MC SEE COMMENTS ; Start 03/08/18 at 21:15; Status Cancel Info (PHARMACY MONITORING -- do not chart) 1 each PRN DAILY PRN MC SEE COMMENTS ; Start 03/08/18 at 21:15 Pantoprazole Sodium (Protonix) 40 mg DAILYAC PO Last administered on 03/10/18at 08:20; Start 03/09/18 at 16:30 Sodium Chloride 1,000 ml @ 1,000 mls/hr Q1H PRN IV hypotension; Start 03/10/18 at 08:30; Stop 03/10/18 at 14:29; Status DC Sodium Chloride 1,000 ml @ 400 mls/hr Q2H30M PRN IV PATENCY; Start 03/10/18 at 08:30; Stop 03/10/18 at 20:29; Status DC Info (PHARMACY MONITORING -- do not chart) 1 each PRN DAILY PRN MC SEE COMMENTS ; Start 03/10/18 at 10:15; Status UNV Info (PHARMACY MONITORING -- do not chart) 1 each PRN DAILY PRN MC SEE COMMENTS ; Start 03/10/18 at 10:15; Status UNV Alteplase, Recombinant (Cathflo) 2 mg 1X ONCE INT CAT Last administered on 03/10at 14:04; Start 03/10/18 at 11:45; Stop 03/10/18 at 11:46; Status DC Amino Acids/ Glycerin/ Electrolytes 1,000 ml @ 50 mls/hr Q20H IV Last administered on 03/10/18at 20:52; Start 03/10/18 at 20:00 Alteplase, Recombinant (Cathflo) 2 mg 1X ONCE INT CAT Last administered on 03/10at 21:05; Start 03/10/18 at 20:00; Stop 03/10/18 at 20:16; Status DC Active Scripts Active Reported Zoloft (Sertraline Hcl) 100 Mg Tablet 150 Mg PO DAILY Senna Lax (Sennosides) 8.6 Mg Tablet 8.6 Mg PO DAILY Proair Hfa (Albuterol Sulfate) 8.5 Gm Hfa.aer.ad 2 Puff INH PRN Q6HRS PRN Miralax (Polyethylene Glycol 3350) 17 Gm Powd.pack 1 Pkt PO HS Oxycodone Hcl 5 Mg Capsule 20 Mg PO PRN Q4HRS PRN Oxycodone Hcl 5 Mg Capsule 10 Mg PO PRN Q4HRS PRN Ondansetron Odt (Ondansetron) 4 Mg Tab.rapdis 8 Mg PO PRN Q8HRS PRN One-Daily Multi-Vitamin (Multivitamin) 1 Each Tablet 1 Each PO HS Melatonin 3 Mg Tablet 1 Tab PO QHS Ativan (Lorazepam) 0.5 Mg Tablet 0.5 Mg PO PRN Q12HRS PRN Guaifenesin-Codeine Syrup (Guaifenesin/Codeine Phosphate) 118 Ml Liquid 10 Ml PO PRN Q4HRS PRN Flonase Allergy Relief (Fluticasone Propionate) 9.9 Ml [place].susp 1 Sprays NS DAILY FENTANYL 50mcg/hr (Fentanyl) 1 Each Patch.td72 1 Patch TP Q3DAYS Famotidine 40 Mg Tablet 20 Mg PO HS Dexamethasone 4 Mg Tablet 4 Tab PO DAILY Clonidine Hcl 0.1 Mg Tablet 0.1 Mg PO BID Carvedilol 25 Mg Tablet 6.25 Mg PO BIDWMEALS Calcium Acetate 667 Mg Tablet 667 Mg PO TIDWMEALS Vitals/I & O Vital Sign - Last 24 Hours 03/10/18 03/10/18 03/10/18 03/10/18 11:09 14:04 15:00 18:35 Temp 97.1 97.5 97.1 97.5 Pulse 105 111 109 Resp 16 16 B/P (MAP) 115/83 144/90 (108) 155/90 Pulse Ox 95 O2 Delivery Nasal Cannula Nasal Cannula O2 Flow Rate 2.0 2.0 03/10/18 03/10/18 03/10/185/19 19:50 20:00 21:05 22:35 Temp 98.0 98.1 98.0 98.1 Pulse 111 111 113 Resp 19 18 B/P (MAP) 145/94 (111) 145/94 156/102 (120) Pulse Ox 92 93 O2 Delivery Room Air Nasal Cannula Room Air O2 Flow Rate 2.0 03/11/18 03/11/18 03/11/18 03/11/18 00:24 01:41 03:59 04:30 Temp 97.8 97.8 Pulse 124 Resp 15 17 21 B/P (MAP) 152/99 (116) Pulse Ox 93 93 96 O2 Delivery Nasal Cannula Nasal Cannula Nasal Cannula Nasal Cannula O2 Flow Rate 2.0 2.0 2.0 03/11/18 07:00 Temp 98.7 98.7 Pulse 127 Resp 14 B/P (MAP) 156/101 (119) Pulse Ox 95 O2 Delivery Nasal Cannula O2 Flow Rate 2.0 Intake and Output 03/10/18 03/10/18 03/11/18 15:01 23:01 07:01 Intake Total 250 ml Output Total 50 ml 100 ml Balance 250 ml -50 ml -100 ml Nutrition Consultation Dietary Evaluation: Recommendations by RD: Increase Calorie Intake, Protein supplementation Comments: sending ensure clear tid and active liquid protein tid Expected Outcomes/Goals: diet advancement/ tolerance Malnutrition Findings: Food and Nutrition Intake (Mod: <75% est energy req 7days Weight Status: Overweight PURA MARTÍNEZ MD Mar 11, 2018 10:59
[2018-03-11 11:00] VITALS: BP 161/107
[2018-03-11] MEDS ORDERED: IV NORMAL SALINE 500ML BAG 500 ML IV ONE (11:45)
[2018-03-11] MEDS: HYDROmorphone 2 MG/ML VIAL IV PRN ×3 (12:00→22:17)
[2018-03-11] MEDS ORDERED: METOPROLOL TARTRATE 5 MG/5 ML VIAL. IVP ONE (12:00)
--- NOTE | 2018-03-11 14:57 | PDOC ---
G I PROGRESS NOTE Reason for Follow-up n/v/abd pain Subjective pain unchanged Physical Exam Lungs decreased BS CV S1 S2 ABD distended, hypoactive BS, diffuse tenderness Review of Relevant I have reviewed the following items arden (where applicable) has been applied. Labs Laboratory Tests Test 03/10/18 04:30 03/10/18 18:00 03/11/18 05:10 03/11/18 05:40 White Blood Count 12.0 x10^3/uL (4.0-11.0) 16.4 x10^3/uL (4.0-11.0) Red Blood Count 2.17 x10^6/uL (3.50-5.40) 3.40 x10^6/uL (3.50-5.40) Hemoglobin 6.2 g/dL (12.0-15.5) 9.7 g/dL (12.0-15.5) 9.8 g/dL (12.0-15.5) Hematocrit 19.3 % (36.0-47.0) 29.6 % (36.0-47.0) 29.7 % (36.0-47.0) Mean Corpuscular Volume 89 fL (79-100) 88 fL (79-100) Mean Corpuscular Hemoglobin 29 pg (25-35) 29 pg (25-35) Mean Corpuscular Hemoglobin Concent 32 g/dL (31-37) 33 g/dL (31-37) 33 g/dL (31-37) Red Cell Distribution Width 20.1 % (11.5-14.5) 19.2 % (11.5-14.5) Platelet Count 322 x10^3/uL (140-400) 360 x10^3/uL (140-400) Neutrophils (%) (Auto) 93 % (31-73) 94 % (31-73) Lymphocytes (%) (Auto) 3 % (24-48) 2 % (24-48) Monocytes (%) (Auto) 4 % (0-9) 4 % (0-9) Eosinophils (%) (Auto) 0 % (0-3) 0 % (0-3) Basophils (%) (Auto) 0 % (0-3) 0 % (0-3) Neutrophils # (Auto) 11.1 x10^3uL (1.8-7.7) 15.5 x10^3uL (1.8-7.7) Lymphocytes # (Auto) 0.3 x10^3/uL (1.0-4.8) 0.3 x10^3/uL (1.0-4.8) Monocytes # (Auto) 0.5 x10^3/uL (0.0-1.1) 0.6 x10^3/uL (0.0-1.1) Eosinophils # (Auto) 0.0 x10^3/uL (0.0-0.7) 0.0 x10^3/uL (0.0-0.7) Basophils # (Auto) 0.0 x10^3/uL (0.0-0.2) 0.0 x10^3/uL (0.0-0.2) Sodium Level 139 mmol/L (136-145) 140 mmol/L (136-145) 141 mmol/L (136-145) Potassium Level 4.0 mmol/L (3.5-5.1) 3.9 mmol/L (3.5-5.1) 4.1 mmol/L (3.5-5.1) Chloride Level 99 mmol/L (98-107) 98 mmol/L (98-107) 98 mmol/L (98-107) Carbon Dioxide Level 25 mmol/L (21-32) 23 mmol/L (21-32) 22 mmol/L (21-32) Anion Gap 15 (6-14) 19 (6-14) 21 (6-14) Blood Urea Nitrogen 41 mg/dL (7-20) 40 mg/dL (7-20) 41 mg/dL (7-20) Creatinine 3.3 mg/dL (0.6-1.0) 2.3 mg/dL (0.6-1.0) 2.4 mg/dL (0.6-1.0) Estimated GFR (Cockcroft-Gault) 14.4 21.9 20.8 Glucose Level 89 mg/dL (70-99) 113 mg/dL (70-99) 106 mg/dL (70-99) Calcium Level 9.1 mg/dL (8.5-10.1) 8.7 mg/dL (8.5-10.1) 8.8 mg/dL (8.5-10.1) Phosphorus Level 4.1 mg/dL (2.6-4.7) 3.6 mg/dL (2.6-4.7) Magnesium Level 2.0 mg/dL (1.8-2.4) Albumin 3.4 g/dL (3.4-5.0) 3.0 g/dL (3.4-5.0) Test 03/11/18 05:45 Magnesium Level 2.3 mg/dL (1.8-2.4) Laboratory Tests Test 03/10/18 18:00 03/11/18 05:10 03/11/18 05:40 03/11/18 05:45 Hemoglobin 9.7 g/dL (12.0-15.5) 9.8 g/dL (12.0-15.5) Hematocrit 29.6 % (36.0-47.0) 29.7 % (36.0-47.0) Mean Corpuscular Hemoglobin Concent 33 g/dL (31-37) 33 g/dL (31-37) White Blood Count 16.4 x10^3/uL (4.0-11.0) Red Blood Count 3.40 x10^6/uL (3.50-5.40) Mean Corpuscular Volume 88 fL (79-100) Mean Corpuscular Hemoglobin 29 pg (25-35) Red Cell Distribution Width 19.2 % (11.5-14.5) Platelet Count 360 x10^3/uL (140-400) Neutrophils (%) (Auto) 94 % (31-73) Lymphocytes (%) (Auto) 2 % (24-48) Monocytes (%) (Auto) 4 % (0-9) Eosinophils (%) (Auto) 0 % (0-3) Basophils (%) (Auto) 0 % (0-3) Neutrophils # (Auto) 15.5 x10^3uL (1.8-7.7) Lymphocytes # (Auto) 0.3 x10^3/uL (1.0-4.8) Monocytes # (Auto) 0.6 x10^3/uL (0.0-1.1) Eosinophils # (Auto) 0.0 x10^3/uL (0.0-0.7) Basophils # (Auto) 0.0 x10^3/uL (0.0-0.2) Sodium Level 140 mmol/L (136-145) 141 mmol/L (136-145) Potassium Level 3.9 mmol/L (3.5-5.1) 4.1 mmol/L (3.5-5.1) Chloride Level 98 mmol/L (98-107) 98 mmol/L (98-107) Carbon Dioxide Level 23 mmol/L (21-32) 22 mmol/L (21-32) Anion Gap 19 (6-14) 21 (6-14) Blood Urea Nitrogen 40 mg/dL (7-20) 41 mg/dL (7-20) Creatinine 2.3 mg/dL (0.6-1.0) 2.4 mg/dL (0.6-1.0) Estimated GFR (Cockcroft-Gault) 21.9 20.8 Glucose Level 113 mg/dL (70-99) 106 mg/dL (70-99) Calcium Level 8.7 mg/dL (8.5-10.1) 8.8 mg/dL (8.5-10.1) Phosphorus Level 3.6 mg/dL (2.6-4.7) Albumin 3.0 g/dL (3.4-5.0) Magnesium Level 2.3 mg/dL (1.8-2.4) Microbiology 03/08/18 Anaerobic/Aerobic Culture, Resulted Pending 03/08/18 Anaerobic Culture Result 1 (TIMOTHY), Resulted Pending 03/08/18 Aerobic Culture - Preliminary, Resulted 03/08/18 Aerobic Culture Result 1 (TIMOTHY) - Preliminary, Resulted 03/08/18 Gram Stain - Final, Resulted 03/08/18 Gram Stain Result 1 (TIMOTHY) - Final, Resulted 03/08/18 Gram Stain Result 2 (TIMOTHY) - Final, Resulted Medications Current Medications Ondansetron HCl (Zofran) 4 mg PRN Q8HRS PRN IV NAUSEA/VOMITING Last administered on 03/06/18at 05:34; Start 03/05/18 at 22:00; Stop 03/06/18 at 21:59 ; Status DC Fentanyl Citrate (Fentanyl 2ml Vial) 50 mcg PRN Q1HR PRN IV PAIN Last administered on 03/06/18at 05:35; Start 03/05/18 at 22:00; Stop 03/06/18 at 21:59 ; Status DC Calcium Gluconate (Calcium Gluconate) 1,000 mg 1X ONCE IVP Last administered on 03/05/18at 23:23; Start 03/05/18 at 22:15; Stop 03/05/18 at 22:16; Status DC Sodium Bicarbonate (Sodium Bicarb Adult 8.4% Syr) 50 meq 1X ONCE IV Last administered on 03/05/18at 23:23; Start 03/05/18 at 22:15; Stop 03/05/18 at 22 :16; Status DC Sodium Polystyrene Sulfonate (Kayexalate) 30 gm 1X ONCE PO Last administered on 03/05/18at 23:23; Start 03/05/18 at 22:15; Stop 03/05/18 at 22:16; Status DC Ondansetron HCl (Zofran) 4 mg 1X ONCE IV Last administered on 03/05/18at 22:55 ; Start 03/05/18 at 22:45; Stop 03/05/18 at 22:55; Status DC Prochlorperazine Edisylate (Compazine) 10 mg PRN Q6HRS PRN IM NAUSEA/VOMITING; Start 03/06/18 at 06:15; Stop 03/06/18 at 12:32; Status DC Oxycodone HCl (Roxicodone) 10 mg PRN Q4HRS PRN PO MILD - MODERATE PAIN Last administered on 03/11/18at 00:24; Start 03/06/18 at 06:15 Oxycodone HCl (Roxicodone) 20 mg PRN Q4HRS PRN PO SEVERE PAIN; Start 03/06/18 at 06:15 Lidocaine/ Epinephrine (LIDOCAINE 1%-EPI 1:100,000 Multi-Dose) 20 ml STK-MED ONCE .ROUTE ; Start 03/06/18 at 09:11; Stop 03/06/18 at 09:12; Status DC Cefazolin Sodium 50 ml @ As Directed STK-MED ONCE IV ; Start 03/06/18 at 09:34; Stop 03/06/18 at 09:35; Status DC Midazolam HCl (Versed) 2 mg STK-MED ONCE .ROUTE ; Start 03/06/18 at 09:34; Stop 03/06/18 at 09:35; Status DC Fentanyl Citrate (Fentanyl 2ml Vial) 100 mcg STK-MED ONCE .ROUTE ; Start at 09:34; Stop 03/06/18 at 09:35; Status DC Heparin Sodium (Porcine) (Heparin Sodium) 10,000 unit STK-MED ONCE .ROUTE ; Start 03/06/18 at 09:44; Stop 03/06/18 at 09:46; Status DC Midazolam HCl (Versed) 2 mg 1X ONCE IV Last administered on 03/06/18at 10:11; Start 03/06/18 at 10:30; Stop 03/06/18 at 10:35; Status DC Fentanyl Citrate (Fentanyl 2ml Vial) 100 mcg 1X ONCE IV Last administered on at 10:11; Start 03/06/18 at 10:30; Stop 03/06/18 at 10:35; Status DC Lidocaine/ Epinephrine (LIDOCAINE 1%-EPI 1:100,000 Multi-Dose) 20 ml 1X ONCE IJ Last administered on 03/06/18at 10:09; Start 03/06/18 at 10:30; Stop 03/06/18 at 10:35; Status DC Cefazolin Sodium 50 ml @ 100 mls/hr 1X ONCE IV Last administered on 03/06/18at 10:11; Start 03/06/18 at 10:30; Stop 03/06/18 at 10:59; Status DC Heparin Sodium (Porcine) (Heparin Sodium) 4,200 unit 1X ONCE INT CAT Last administered on 03/06/18at 10:11; Start 03/06/18 at 10:30; Stop 03/06/18 at 10:35; Status DC Clonidine HCl (Catapres) 0.1 mg BID PO Last administered on 03/10/18at 21:05; Start 03/06/18 at 12:00 Dexamethasone (Decadron) 16 mg DAILY PO Last administered on 03/07/18at 13:12; Start 03/06/18 at 12:00; Stop 03/08/18 at 09:00; Status DC Fentanyl (Duragesic 50mcg/ Hr Patch) 1 patch Q3DAYS TD ; Start 03/06/18 at 21:00 ; Stop 03/06/18 at 21:05; Status DC Lorazepam (Ativan) 0.5 mg PRN Q12HRS PRN PO ANXIETY / AGITATION; Start 03/06/18 at 11:30 Ondansetron HCl (Zofran Odt) 8 mg PRN Q8HRS PRN PO NAUSEA/VOMITING Last administered on 03/11/18 01:41; Start 03/06/18 at 11:30 Calcium Acetate (Phoslo) 667 mg TIDWMEALS PO Last administered on 03/09/18 12: 09; Start 03/06/18 at 12:00 Carvedilol (Coreg) 6.25 mg BIDWMEALS PO Last administered on 03/10/18 18:35; Start 03/06/18 at 12:00 Famotidine (Pepcid) 20 mg QHS PO Last administered on 03/06/18 20:51; Start 03/06/18 at 21:00; Stop 03/07/18 at 13:15; Status DC Fluticasone Propionate (Flonase) 1 spray DAILY NS Last administered on 12:16; Start 03/06/18 at 12:00 Guaifenesin/ Codeine Phosphate (Robitussin Ac) 10 ml PRN Q4HRS PRN PO COUGH; Start 03/06/18 at 11:45 Non-Formulary Medication (Melatonin ) 1 tab QHS PO ; Start 03/06/18 at 21:00; Status UNV Multivitamins (Thera M Plus) 1 tab DAILY PO Last administered on 03/09/18 08:20 ; Start 03/06/18 at 12:00 Polyethylene Glycol (miraLAX PACKET) 17 gm QHS PO Last administered on 21:04; Start 03/06/18 at 21:00 Sennosides (Senna) 8.6 mg DAILY PO Last administered on 03/09/18 08:20; Start 03/06/18 at 12:00 Sertraline HCl (Zoloft) 150 mg DAILY PO Last administered on 03/09/18 08:20; Start 03/06/18 at 12:00 Prochlorperazine Edisylate (Compazine) 10 mg PRN Q6HRS PRN IV NAUSEA/VOMITING Last administered on 03/10/18 20:58; Start 03/06/18 at 12:45 Darbepoetin Taran (Aranesp) 60 mcg WEEKLYHS SQ Last administered on 03/06/18at 20: 52; Start 03/06/18 at 21:00 Magnesium Sulfate 50 ml @ 25 mls/hr PRN DAILY PRN IV for Mag < 1.7 on am labs; Start 03/06/18 at 13:45 Sodium Chloride 1,000 ml @ 1,000 mls/hr Q1H PRN IV hypotension; Start 03/06/18 at 12:30; Stop 03/06/18 at 18:29; Status DC Sodium Chloride 1,000 ml @ 400 mls/hr Q2H30M PRN IV PATENCY; Start 03/06/18 at 12:30; Stop 03/06/18 at 20:00; Status DC Info (PHARMACY MONITORING -- do not chart) 1 each PRN DAILY PRN MC SEE COMMENTS ; Start 03/06/18 at 15:00; Status UNV Info (PHARMACY MONITORING -- do not chart) 1 each PRN DAILY PRN MC SEE COMMENTS ; Start 03/06/18 at 15:00; Stop 03/07/18 at 16:17; Status DC Fentanyl (Duragesic 50mcg/ Hr Patch) 1 patch Q72H TD Last administered on at 20:55; Start 03/06/18 at 21:30 Sodium Chloride 1,000 ml @ 1,000 mls/hr Q1H PRN IV hypotension; Start 03/07/18 at 07:51; Stop 03/07/18 at 13:50; Status DC Albumin Human 200 ml @ 200 mls/hr 1X PRN PRN IV Hypotension; Start 03/07/18 at 08:00; Stop 03/07/18 at 13:59; Status DC Sodium Chloride 1,000 ml @ 400 mls/hr Q2H30M PRN IV PATENCY; Start 03/07/18 at 07:51; Stop 03/07/18 at 19:50; Status DC Info (PHARMACY MONITORING -- do not chart) 1 each PRN DAILY PRN MC SEE COMMENTS ; Start 03/07/18 at 08:00; Stop 03/09/18 at 18:51; Status DC Info (PHARMACY MONITORING -- do not chart) 1 each PRN DAILY PRN MC SEE COMMENTS ; Start 03/07/18 at 08:00; Status UNV Dexamethasone (Decadron) 12 mg DAILY PO ; Start 03/07/18 at 09:30; Stop 03/07/18 at 09:33; Status DC Dexamethasone (Decadron) 12 mg DAILY PO Last administered on 03/09/18at 08:20; Start 03/09/18 at 09:00 Pantoprazole Sodium (Protonix) 40 mg DAILYAC PO ; Start 03/08/18 at 07:30; Stop 03/08/18 at 07:30; Status DC Pantoprazole Sodium (PROTONIX VIAL for IV PUSH) 40 mg DAILYAC IVP Last administered on 03/09/18at 08:19; Start 03/08/18 at 07:30; Stop 03/09/18 at 12:24; Status DC Ferrous Sulfate (Iron Oral Solution) 300 mg DAILY PO Last administered on at 08:20; Start 03/08/18 at 10:30 Albumin Human 100 ml @ 100 mls/hr Q6HRS IV Last administered on 03/09/18at 17:28 ; Start 03/08/18 at 12:00; Stop 03/09/18 at 18:59; Status DC Sodium Chloride 1,000 ml @ 1,000 mls/hr Q1H PRN IV hypotension; Start 03/08/18 at 15:00; Stop 03/08/18 at 21:21; Status DC Sodium Chloride (Normal Saline Flush) 10 ml 1X PRN PRN IV AP catheter pack; Start 03/08/18 at 15:00; Stop 03/09/18 at 14:59; Status DC Sodium Chloride (Normal Saline Flush) 10 ml 1X PRN PRN IV LACQUER SHADER catheter pack; Start 03/08/18 at 15:00; Stop 03/09/18 at 14:59; Status DC Info (PHARMACY MONITORING -- do not chart) 1 each PRN DAILY PRN MC SEE COMMENTS ; Start 03/08/18 at 21:15; Status Cancel Info (PHARMACY MONITORING -- do not chart) 1 each PRN DAILY PRN MC SEE COMMENTS ; Start 03/08/18 at 21:15 Pantoprazole Sodium (Protonix) 40 mg DAILYAC PO Last administered on 03/10/18at 08:20; Start 03/09/18 at 16:30 Sodium Chloride 1,000 ml @ 1,000 mls/hr Q1H PRN IV hypotension; Start 03/10/18 at 08:30; Stop 03/10/18 at 14:29; Status DC Sodium Chloride 1,000 ml @ 400 mls/hr Q2H30M PRN IV PATENCY; Start 03/10/18 at 08:30; Stop 03/10/18 at 20:29; Status DC Info (PHARMACY MONITORING -- do not chart) 1 each PRN DAILY PRN MC SEE COMMENTS ; Start 03/10/18 at 10:15; Status UNV Info (PHARMACY MONITORING -- do not chart) 1 each PRN DAILY PRN MC SEE COMMENTS ; Start 03/10/18 at 10:15; Status UNV Alteplase, Recombinant (Cathflo) 2 mg 1X ONCE INT CAT Last administered on 03/10at 14:04; Start 03/10/18 at 11:45; Stop 03/10/18 at 11:46; Status DC Amino Acids/ Glycerin/ Electrolytes 1,000 ml @ 50 mls/hr Q20H IV Last administered on 03/10/18at 20:52; Start 03/10/18 at 20:00 Alteplase, Recombinant (Cathflo) 2 mg 1X ONCE INT CAT Last administered on 03/10at 21:05; Start 03/10/18 at 20:00; Stop 03/10/18 at 20:16; Status DC Metoprolol Tartrate (Lopressor Vial) 5 mg 1X ONCE IVP Last administered on 03/11at 12:01; Start 03/11/18 at 12:00; Stop 03/11/18 at 12:01; Status DC Hydromorphone HCl (Dilaudid) 1 mg PRN Q4HRS PRN IV PAIN Last administered on 03/11/18at 12:00; Start 03/11/18 at 11:45 Sodium Chloride 500 ml @ 500 mls/hr 1X ONCE IV Last administered on 03/11/18at 12:02; Start 03/11/18 at 11:45; Stop 03/11/18 at 12:45; Status DC Active Scripts Active Reported Zoloft (Sertraline Hcl) 100 Mg Tablet 150 Mg PO DAILY Senna Lax (Sennosides) 8.6 Mg Tablet 8.6 Mg PO DAILY Proair Hfa (Albuterol Sulfate) 8.5 Gm Hfa.aer.ad 2 Puff INH PRN Q6HRS PRN Miralax (Polyethylene Glycol 3350) 17 Gm Powd.pack 1 Pkt PO HS Oxycodone Hcl 5 Mg Capsule 20 Mg PO PRN Q4HRS PRN Oxycodone Hcl 5 Mg Capsule 10 Mg PO PRN Q4HRS PRN Ondansetron Odt (Ondansetron) 4 Mg Tab.rapdis 8 Mg PO PRN Q8HRS PRN One-Daily Multi-Vitamin (Multivitamin) 1 Each Tablet 1 Each PO HS Melatonin 3 Mg Tablet 1 Tab PO QHS Ativan (Lorazepam) 0.5 Mg Tablet 0.5 Mg PO PRN Q12HRS PRN Guaifenesin-Codeine Syrup (Guaifenesin/Codeine Phosphate) 118 Ml Liquid 10 Ml PO PRN Q4HRS PRN Flonase Allergy Relief (Fluticasone Propionate) 9.9 Ml [place].susp 1 Sprays NS DAILY FENTANYL 50mcg/hr (Fentanyl) 1 Each Patch.td72 1 Patch TP Q3DAYS Famotidine 40 Mg Tablet 20 Mg PO HS Dexamethasone 4 Mg Tablet 4 Tab PO DAILY Clonidine Hcl 0.1 Mg Tablet 0.1 Mg PO BID Carvedilol 25 Mg Tablet 6.25 Mg PO BIDWMEALS Calcium Acetate 667 Mg Tablet 667 Mg PO TIDWMEALS Vitals/I & O Vital Sign - Last 24 Hours 03/10/18 03/10/18 03/10/18 03/10/18 15:00 18:35 19:50 20:00 Temp 97.5 98.0 97.5 98.0 Pulse 111 109 111 Resp 16 19 B/P (MAP) 144/90 (108) 155/90 145/94 (111) Pulse Ox 95 92 O2 Delivery Nasal Cannula Room Air Nasal Cannula O2 Flow Rate 2.0 2.0 03/10/18 03/10/18 03/11/18 03/11/18 21:05 22:35 00:24 01:41 Temp 98.1 98.1 Pulse 111 113 Resp 18 15 17 B/P (MAP) 145/94 156/102 (120) Pulse Ox 93 93 93 O2 Delivery Room Air Nasal Cannula Nasal Cannula O2 Flow Rate 2.0 2.0 03/11/18 03/11/18 03/11/18 03/11/18 03:59 04:30 07:00 08:00 Temp 97.8 98.7 97.8 98.7 Pulse 124 127 Resp 21 14 B/P (MAP) 152/99 (116) 156/101 (119) Pulse Ox 96 95 O2 Delivery Nasal Cannula Nasal Cannula Nasal Cannula Nasal Cannula O2 Flow Rate 2.0 2.0 2.0 03/11/18 03/11/18 03/11/18 03/11/18 11:00 12:00 12:01 13:43 Temp 98.7 98.7 Pulse 134 134 Resp 16 B/P (MAP) 161/107 (125) 161/107 Pulse Ox 96 O2 Delivery Nasal Cannula Nasal Cannula Room Air O2 Flow Rate 2.0 2.0 Intake and Output 03/10/18 03/10/18 03/11/18 15:01 23:01 07:01 Intake Total 250 ml Output Total 50 ml 100 ml Balance 250 ml -50 ml -100 ml Problem List Problems Medical Problems: (1) Dialysis catheter clot or failure Status: Acute (2) Serum potassium elevated Status: Acute Assessment Abd pain- with metastatic ovarian cancer, patient considering palliative care/ hospice options, doesn't want to be full code, cpm AMOS CHURCH MD Mar 11, 2018 14:57
[2018-03-11 15:00] VITALS: BP 157/103
[2018-03-11] MEDS: AMINO AC 3%/ELECTROLYTE/GLYCER 1,000 ML IV SCH (16:25)
--- NOTE | 2018-03-11 17:23 | NUR ---
Dr. Lino notified of HR at 134, ordered to give dose of metoprolol. HR down to 120. Since no plan to d/c NG and patient cannot have PO medications, metoprolol order was updated to be PRN q6hrs per Dr. Lino. Patient has decided to be a partial code/DNI. Dr. Lino made aware and ordered changed to reflect patient wishes. Dr. Lino notified that patient's port has been flushing but no blood return after 2 attempts of cathflo. 1 more cathflo will be ordered as well as IR consult if not successful. Patient does not wish to have dressing changed at this time.
[2018-03-11] MEDS ORDERED: METOPROLOL TARTRATE 5 MG/5 ML VIAL. IVP SCH (18:00)
[2018-03-11] MEDS ORDERED: HEPARIN PF 500 UNIT/5 ML DISP.SYRIN. IV ONE (18:00)
[2018-03-11] MEDS ORDERED: ALTEPLASE 2 MG VIAL INT CAT ONE (18:00)
[2018-03-11 19:00] VITALS: BP 164/111
--- NOTE | 2018-03-11 19:54 | NUR ---
This RN de-accessed old line and re-accessed with new line, with assistance of propellant charge loader. Blood return retrieved upon insertion. IR consult removed.
[2018-03-11] MEDS: POLYETHYLENE GLYCOL 3350 17 GM PACKET. PO SCH (20:10)
[2018-03-11] MEDS: METOPROLOL TARTRATE 5 MG/5 ML VIAL. IVP PRN (20:13)
[2018-03-11 23:00] VITALS: BP 159/101
[2018-03-12 03:00] VITALS: BP 157/106
[2018-03-12] MEDS: METOPROLOL TARTRATE 5 MG/5 ML VIAL. IVP PRN ×3 (03:36→23:23)
[2018-03-12] MEDS: HYDROmorphone 2 MG/ML VIAL IV PRN ×3 (05:10→23:22)
[2018-03-12 06:33] LABS: BASO % 0 % (0-3); EOS % 0 % (0-3); HEMATOCRIT 29.5 % (36.0-47.0); HEMOGLOBIN 9.6 g/dL (12.0-15.5); LYMPH # 0.5 x10^3/uL (1.0-4.8); LYMPH % 4 % (24-48); MEAN CORPUSCULAR HEMOGLOBIN 28 pg (25-35); MEAN CORPUSCULAR HGB CONC 33 g/dL (31-37); MEAN CORPUSCULAR VOLUME 87 fL (79-100); MONO # 0.9 x10^3/uL (0.0-1.1); MONO % 7 % (0-9); NEUT % 89 % (31-73); PLATELET COUNT 355 x10^3/uL (140-400); RED BLOOD COUNT 3.41 x10^6/uL (3.50-5.40); RED CELL DISTRIBUTION WIDTH 19.5 % (11.5-14.5); WHITE BLOOD COUNT 13.5 x10^3/uL (4.0-11.0)
[2018-03-12 06:41] LABS: ALBUMIN 2.6 g/dL (3.4-5.0); CALCIUM 8.5 mg/dL (8.5-10.1); CREATININE 3.2 mg/dL (0.6-1.0); GFR 14.9; PHOSPHORUS 3.8 mg/dL (2.6-4.7); POTASSIUM 4.6 mmol/L (3.5-5.1)
[2018-03-12 07:00] VITALS: BP 154/103
[2018-03-12] MEDS: PANTOPRAZOLE 40 MG TABLET.DR. PO SCH (07:30)
[2018-03-12] MEDS: CALCIUM ACETATE 667 MG CAPSULE PO SCH ×3 (08:00→16:54)
[2018-03-12] MEDS: CARVEDILOL 6.25 MG TABLET. PO SCH ×2 (08:00→16:53)
[2018-03-12] MEDS ORDERED: PHENOL ORAL SPRAY 177ML BOTTLE. PO PRN (08:45)
[2018-03-12] MEDS ORDERED: ACETAMINOPHEN 650 MG SUPP.RECT. PR PRN (08:45)
[2018-03-12] MEDS: FERROUS SULFATE ORAL 300 MG/5 ML SOLUTION. PO SCH (09:00)
[2018-03-12] MEDS: cloNIDine HCL 0.1 MG TABLET PO SCH ×2 (09:00→20:33)
[2018-03-12] MEDS: FLUTICASONE 50MCG/NASAL SPRAY 16GM BOTTLE. NS SCH (09:00)
[2018-03-12] MEDS: SENNOSIDES 8.6 MG TABLET PO SCH (09:00)
[2018-03-12] MEDS: MULTIVITAMIN with MINERAL TABLET. PO SCH (09:00)
[2018-03-12] MEDS: DEXAMETHASONE 4 MG TABLET PO SCH (09:00)
[2018-03-12] MEDS: SERTRALINE 50 MG TABLET. PO SCH (09:00)
--- NOTE | 2018-03-12 09:01 | PDOC ---
PROGRESS NOTES Chief Complaint Chief Complaint Hyperkalemia Ovarian Cancer, METASTATIC End Stage Renal Disease, HD dependent Tachycardia small bowel obstruction by ct Ascites - s/p paracentesis (800cc) Abnormal KUB/CT - ?ileus/SBO PATIENT DESIRES TO BE A DNR History of Present Illness History of Present Illness PT seen and examined, spoke with nursing staff. PT TACHY requested iv metoprolol 5 mg q 4 hrs prn, NG in place now with some relief. She c/o worsening abdominal pain today, febrile this morning, cultures drawn. will consult palliative care Vitals Vitals Vital Signs Date Time Temp Pulse Resp B/P (MAP) Pulse Ox O2 Delivery O2 Flow Rate FiO2 03/12/18 07:00 100.7 120 18 154/103 (120) 96 3L 100.7 03/12/18 05:10 2.0 Physical Exam Physical Exam ABD distended, hypoactive BS, diffuse tenderness General: ALERT Heart: Other (tachycardia at 111 bpm) Abdomen: SOFT GEN: NAD LUNGS: CTAB HEART: RRR There is a small left pleural effusion. There is adjacent compressive atelectasis versus infiltrate. There is subsegmental atelectasis at the right lung base. There is a 6 cm solid noncalcified pulmonary nodule in the right middle lobe (series 2, image 9). A left lower lobe thoracostomy tube is partially profiled. There is suggestion of pleural thickening at the left lung base. Evaluation of the solid abdominal viscera is limited by lack of intravenous contrast. There is mild nodular contour of the hepatic parenchyma which may reflect underlying hepatic disease such as cirrhosis. Spleen is nonenlarged. There is focal hypoattenuation along the superior aspect of the spleen measuring 2.9 cm which is inadequately assessed without contrast. There is nodular thickening of the left adrenal gland which is indeterminate measuring up to 9 mm. A right adrenal gland is normal in appearance. There is mild atrophy of the pancreas. No peripancreatic inflammatory changes are identified. Gallbladder appears surgically absent. Abdominal aorta is normal in course and caliber with mild calcified atheromatous plaque. There are no pathologically enlarged lymph nodes in abdomen and pelvis. There is moderate to large volume abdominal ascites. Mild renal parenchymal atrophy. Duplex right renal collecting system is identified with prominence of the right renal collecting system and right ureter. Findings may be secondary to reflux. There is no hydronephrosis of the inferior moiety. Left kidney appears normal. No definite contour deforming renal masses are identified. Minimal oral contrast is noted. Differential air-fluid levels are identified. There are dilated small bowel loops measuring up to 3.6 cm. Large bowel is normal in caliber with moderate amount of stool. Stomach is normal in appearance. Evaluation for transition point is limited, however it does appear that the distal terminal ileum is somewhat decompressed. There is nodular thickening along the ventral abdominal wall the supra umbilical region measuring up to 14 mm. Findings are indeterminate and correlation with any prior surgical history is recommended. Anasarca is noted with edema and bilateral flanks. Pelvis evaluation is limited by ascites. Urinary bladder is within normal limits given degree of distention. No suspicious adnexal masses are identified. Supervision the left adnexa measures 2.1 cm suggestive of a dominant follicle. As osseous abnormality is identified. IMPRESSION: 1. Dilated small bowel loops most suggestive of small bowel obstruction without definite transition point visualized due to limited evaluation secondary to the lack of contrast opacification of small bowel loops as well as moderate to large volume abdominal ascites. Short-term follow-up radiographs may be of benefit to assess partial versus complete obstruction. 2. Suggestion of cirrhosis with abdominal ascites. No splenomegaly. Small left pleural effusion which appears loculated. Left-sided thoracostomy tube is partially profiled. Bibasilar subsegmental atelectasis versus infiltrates. 3. Indeterminate splenic lesion measuring 2.9 cm. Further evaluation with a contrast-enhanced CT study may be of benefit. 4. Fusiform thickening of the left adrenal gland may be secondary to adrenal hyperplasia. Attention on follow-up exams is recommended. 5. Nodular thickening is identified along the ventral abdominal wall in the supraumbilical region with nodules measuring up to 14 mm. Electronically signed by: Diane Trent MD (03/07/2018 3:45 PM) [facility] General: Alert, Oriented X3, Cooperative, No acute distress, moderate distress Heart: Regular rate, Normal S1, Normal S2, No murmurs, Gallops, Other (TACHY RATE 116) Lungs: Clear Abdomen: Normal bowel sounds, Soft, No tenderness, No hepatosplenomegaly, No masses Extremities: No clubbing, No cyanosis, No edema, Normal pulses, No tenderness/ swelling Labs LABS Laboratory Tests Test 03/12/18 06:03 White Blood Count 13.5 x10^3/uL (4.0-11.0) Red Blood Count 3.41 x10^6/uL (3.50-5.40) Hemoglobin 9.6 g/dL (12.0-15.5) Hematocrit 29.5 % (36.0-47.0) Mean Corpuscular Volume 87 fL (79-100) Mean Corpuscular Hemoglobin 28 pg (25-35) Mean Corpuscular Hemoglobin Concent 33 g/dL (31-37) Red Cell Distribution Width 19.5 % (11.5-14.5) Platelet Count 355 x10^3/uL (140-400) Neutrophils (%) (Auto) 89 % (31-73) Lymphocytes (%) (Auto) 4 % (24-48) Monocytes (%) (Auto) 7 % (0-9) Eosinophils (%) (Auto) 0 % (0-3) Basophils (%) (Auto) 0 % (0-3) Neutrophils # (Auto) 12.0 x10^3uL (1.8-7.7) Lymphocytes # (Auto) 0.5 x10^3/uL (1.0-4.8) Monocytes # (Auto) 0.9 x10^3/uL (0.0-1.1) Eosinophils # (Auto) 0.0 x10^3/uL (0.0-0.7) Basophils # (Auto) 0.0 x10^3/uL (0.0-0.2) Sodium Level 138 mmol/L (136-145) Potassium Level 4.6 mmol/L (3.5-5.1) Chloride Level 99 mmol/L (98-107) Carbon Dioxide Level 25 mmol/L (21-32) Anion Gap 14 (6-14) Blood Urea Nitrogen 74 mg/dL (7-20) Creatinine 3.2 mg/dL (0.6-1.0) Estimated GFR (Cockcroft-Gault) 14.9 Glucose Level 114 mg/dL (70-99) Calcium Level 8.5 mg/dL (8.5-10.1) Phosphorus Level 3.8 mg/dL (2.6-4.7) Albumin 2.6 g/dL (3.4-5.0) Assessment and Plan Assessmemt and Plan Problems Medical Problems: (1) Dialysis catheter clot or failure Status: Acute (2) Serum potassium elevated Status: Acute Comment Review of Relevant I have reviewed the following items arden (where applicable) has been applied. Labs Laboratory Tests Test 03/10/18 18:00 03/11/18 05:10 03/11/18 05:40 03/11/18 05:45 Hemoglobin 9.7 g/dL (12.0-15.5) 9.8 g/dL (12.0-15.5) Hematocrit 29.6 % (36.0-47.0) 29.7 % (36.0-47.0) Mean Corpuscular Hemoglobin Concent 33 g/dL (31-37) 33 g/dL (31-37) White Blood Count 16.4 x10^3/uL (4.0-11.0) Red Blood Count 3.40 x10^6/uL (3.50-5.40) Mean Corpuscular Volume 88 fL (79-100) Mean Corpuscular Hemoglobin 29 pg (25-35) Red Cell Distribution Width 19.2 % (11.5-14.5) Platelet Count 360 x10^3/uL (140-400) Neutrophils (%) (Auto) 94 % (31-73) Lymphocytes (%) (Auto) 2 % (24-48) Monocytes (%) (Auto) 4 % (0-9) Eosinophils (%) (Auto) 0 % (0-3) Basophils (%) (Auto) 0 % (0-3) Neutrophils # (Auto) 15.5 x10^3uL (1.8-7.7) Lymphocytes # (Auto) 0.3 x10^3/uL (1.0-4.8) Monocytes # (Auto) 0.6 x10^3/uL (0.0-1.1) Eosinophils # (Auto) 0.0 x10^3/uL (0.0-0.7) Basophils # (Auto) 0.0 x10^3/uL (0.0-0.2) Sodium Level 140 mmol/L (136-145) 141 mmol/L (136-145) Potassium Level 3.9 mmol/L (3.5-5.1) 4.1 mmol/L (3.5-5.1) Chloride Level 98 mmol/L (98-107) 98 mmol/L (98-107) Carbon Dioxide Level 23 mmol/L (21-32) 22 mmol/L (21-32) Anion Gap 19 (6-14) 21 (6-14) Blood Urea Nitrogen 40 mg/dL (7-20) 41 mg/dL (7-20) Creatinine 2.3 mg/dL (0.6-1.0) 2.4 mg/dL (0.6-1.0) Estimated GFR (Cockcroft-Gault) 21.9 20.8 Glucose Level 113 mg/dL (70-99) 106 mg/dL (70-99) Calcium Level 8.7 mg/dL (8.5-10.1) 8.8 mg/dL (8.5-10.1) Phosphorus Level 3.6 mg/dL (2.6-4.7) Albumin 3.0 g/dL (3.4-5.0) Magnesium Level 2.3 mg/dL (1.8-2.4) Test 03/12/18 06:03 White Blood Count 13.5 x10^3/uL (4.0-11.0) Red Blood Count 3.41 x10^6/uL (3.50-5.40) Hemoglobin 9.6 g/dL (12.0-15.5) Hematocrit 29.5 % (36.0-47.0) Mean Corpuscular Volume 87 fL (79-100) Mean Corpuscular Hemoglobin 28 pg (25-35) Mean Corpuscular Hemoglobin Concent 33 g/dL (31-37) Red Cell Distribution Width 19.5 % (11.5-14.5) Platelet Count 355 x10^3/uL (140-400) Neutrophils (%) (Auto) 89 % (31-73) Lymphocytes (%) (Auto) 4 % (24-48) Monocytes (%) (Auto) 7 % (0-9) Eosinophils (%) (Auto) 0 % (0-3) Basophils (%) (Auto) 0 % (0-3) Neutrophils # (Auto) 12.0 x10^3uL (1.8-7.7) Lymphocytes # (Auto) 0.5 x10^3/uL (1.0-4.8) Monocytes # (Auto) 0.9 x10^3/uL (0.0-1.1) Eosinophils # (Auto) 0.0 x10^3/uL (0.0-0.7) Basophils # (Auto) 0.0 x10^3/uL (0.0-0.2) Sodium Level 138 mmol/L (136-145) Potassium Level 4.6 mmol/L (3.5-5.1) Chloride Level 99 mmol/L (98-107) Carbon Dioxide Level 25 mmol/L (21-32) Anion Gap 14 (6-14) Blood Urea Nitrogen 74 mg/dL (7-20) Creatinine 3.2 mg/dL (0.6-1.0) Estimated GFR (Cockcroft-Gault) 14.9 Glucose Level 114 mg/dL (70-99) Calcium Level 8.5 mg/dL (8.5-10.1) Phosphorus Level 3.8 mg/dL (2.6-4.7) Albumin 2.6 g/dL (3.4-5.0) Laboratory Tests Test 03/12/18 06:03 White Blood Count 13.5 x10^3/uL (4.0-11.0) Red Blood Count 3.41 x10^6/uL (3.50-5.40) Hemoglobin 9.6 g/dL (12.0-15.5) Hematocrit 29.5 % (36.0-47.0) Mean Corpuscular Volume 87 fL (79-100) Mean Corpuscular Hemoglobin 28 pg (25-35) Mean Corpuscular Hemoglobin Concent 33 g/dL (31-37) Red Cell Distribution Width 19.5 % (11.5-14.5) Platelet Count 355 x10^3/uL (140-400) Neutrophils (%) (Auto) 89 % (31-73) Lymphocytes (%) (Auto) 4 % (24-48) Monocytes (%) (Auto) 7 % (0-9) Eosinophils (%) (Auto) 0 % (0-3) Basophils (%) (Auto) 0 % (0-3) Neutrophils # (Auto) 12.0 x10^3uL (1.8-7.7) Lymphocytes # (Auto) 0.5 x10^3/uL (1.0-4.8) Monocytes # (Auto) 0.9 x10^3/uL (0.0-1.1) Eosinophils # (Auto) 0.0 x10^3/uL (0.0-0.7) Basophils # (Auto) 0.0 x10^3/uL (0.0-0.2) Sodium Level 138 mmol/L (136-145) Potassium Level 4.6 mmol/L (3.5-5.1) Chloride Level 99 mmol/L (98-107) Carbon Dioxide Level 25 mmol/L (21-32) Anion Gap 14 (6-14) Blood Urea Nitrogen 74 mg/dL (7-20) Creatinine 3.2 mg/dL (0.6-1.0) Estimated GFR (Cockcroft-Gault) 14.9 Glucose Level 114 mg/dL (70-99) Calcium Level 8.5 mg/dL (8.5-10.1) Phosphorus Level 3.8 mg/dL (2.6-4.7) Albumin 2.6 g/dL (3.4-5.0) Microbiology 03/08/18 Anaerobic/Aerobic Culture, Resulted Pending 03/08/18 Anaerobic Culture Result 1 (TIMOTHY), Resulted Pending 03/08/18 Aerobic Culture - Final, Resulted 03/08/18 Aerobic Culture Result 1 (TIMOTHY) - Final, Resulted 03/08/18 Gram Stain - Final, Resulted 03/08/18 Gram Stain Result 1 (TIMOTHY) - Final, Resulted 03/08/18 Gram Stain Result 2 (TIMOTHY) - Final, Resulted Medications Current Medications Ondansetron HCl (Zofran) 4 mg PRN Q8HRS PRN IV NAUSEA/VOMITING Last administered on 03/06/18at 05:34; Start 03/05/18 at 22:00; Stop 03/06/18 at 21:59 ; Status DC Fentanyl Citrate (Fentanyl 2ml Vial) 50 mcg PRN Q1HR PRN IV PAIN Last administered on 03/06/18at 05:35; Start 03/05/18 at 22:00; Stop 03/06/18 at 21:59 ; Status DC Calcium Gluconate (Calcium Gluconate) 1,000 mg 1X ONCE IVP Last administered on 03/05/18at 23:23; Start 03/05/18 at 22:15; Stop 03/05/18 at 22:16; Status DC Sodium Bicarbonate (Sodium Bicarb Adult 8.4% Syr) 50 meq 1X ONCE IV Last administered on 03/05/18at 23:23; Start 03/05/18 at 22:15; Stop 03/05/18 at 22 :16; Status DC Sodium Polystyrene Sulfonate (Kayexalate) 30 gm 1X ONCE PO Last administered on 03/05/18at 23:23; Start 03/05/18 at 22:15; Stop 03/05/18 at 22:16; Status DC Ondansetron HCl (Zofran) 4 mg 1X ONCE IV Last administered on 03/05/18at 22:55 ; Start 03/05/18 at 22:45; Stop 03/05/18 at 22:55; Status DC Prochlorperazine Edisylate (Compazine) 10 mg PRN Q6HRS PRN IM NAUSEA/VOMITING; Start 03/06/18 at 06:15; Stop 03/06/18 at 12:32; Status DC Oxycodone HCl (Roxicodone) 10 mg PRN Q4HRS PRN PO MILD - MODERATE PAIN Last administered on 03/11/18at 00:24; Start 03/06/18 at 06:15 Oxycodone HCl (Roxicodone) 20 mg PRN Q4HRS PRN PO SEVERE PAIN; Start 03/06/18 at 06:15 Lidocaine/ Epinephrine (LIDOCAINE 1%-EPI 1:100,000 Multi-Dose) 20 ml STK-MED ONCE .ROUTE ; Start 03/06/18 at 09:11; Stop 03/06/18 at 09:12; Status DC Cefazolin Sodium 50 ml @ As Directed STK-MED ONCE IV ; Start 03/06/18 at 09:34; Stop 03/06/18 at 09:35; Status DC Midazolam HCl (Versed) 2 mg STK-MED ONCE .ROUTE ; Start 03/06/18 at 09:34; Stop 03/06/18 at 09:35; Status DC Fentanyl Citrate (Fentanyl 2ml Vial) 100 mcg STK-MED ONCE .ROUTE ; Start at 09:34; Stop 03/06/18 at 09:35; Status DC Heparin Sodium (Porcine) (Heparin Sodium) 10,000 unit STK-MED ONCE .ROUTE ; Start 03/06/18 at 09:44; Stop 03/06/18 at 09:46; Status DC Midazolam HCl (Versed) 2 mg 1X ONCE IV Last administered on 03/06/18 10:11; Start 03/06/18 at 10:30; Stop 03/06/18 at 10:35; Status DC Fentanyl Citrate (Fentanyl 2ml Vial) 100 mcg 1X ONCE IV Last administered on 10:11; Start 03/06/18 at 10:30; Stop 03/06/18 at 10:35; Status DC Lidocaine/ Epinephrine (LIDOCAINE 1%-EPI 1:100,000 Multi-Dose) 20 ml 1X ONCE IJ Last administered on 03/06/18at 10:09; Start 03/06/18 at 10:30; Stop 03/06/18 at 10:35; Status DC Cefazolin Sodium 50 ml @ 100 mls/hr 1X ONCE IV Last administered on 03/06/18 10:11; Start 03/06/18 at 10:30; Stop 03/06/18 at 10:59; Status DC Heparin Sodium (Porcine) (Heparin Sodium) 4,200 unit 1X ONCE INT CAT Last administered on 03/06/18 10:11; Start 03/06/18 at 10:30; Stop 03/06/18 at 10:35; Status DC Clonidine HCl (Catapres) 0.1 mg BID PO Last administered on 03/10/18 21:05; Start 03/06/18 at 12:00 Dexamethasone (Decadron) 16 mg DAILY PO Last administered on 03/07/18 13:12; Start 03/06/18 at 12:00; Stop 03/08/18 at 09:00; Status DC Fentanyl (Duragesic 50mcg/ Hr Patch) 1 patch Q3DAYS TD ; Start 03/06/18 at 21:00 ; Stop 03/06/18 at 21:05; Status DC Lorazepam (Ativan) 0.5 mg PRN Q12HRS PRN PO ANXIETY / AGITATION; Start 03/06/18 at 11:30 Ondansetron HCl (Zofran Odt) 8 mg PRN Q8HRS PRN PO NAUSEA/VOMITING Last administered on 03/11/18 01:41; Start 03/06/18 at 11:30 Calcium Acetate (Phoslo) 667 mg TIDWMEALS PO Last administered on 03/09/18 12: 09; Start 03/06/18 at 12:00 Carvedilol (Coreg) 6.25 mg BIDWMEALS PO Last administered on 03/10/18 18:35; Start 03/06/18 at 12:00 Famotidine (Pepcid) 20 mg QHS PO Last administered on 03/06/18 20:51; Start 03/06/18 at 21:00; Stop 03/07/18 at 13:15; Status DC Fluticasone Propionate (Flonase) 1 spray DAILY NS Last administered on 12:16; Start 03/06/18 at 12:00 Guaifenesin/ Codeine Phosphate (Robitussin Ac) 10 ml PRN Q4HRS PRN PO COUGH; Start 03/06/18 at 11:45 Non-Formulary Medication (Melatonin ) 1 tab QHS PO ; Start 03/06/18 at 21:00; Status UNV Multivitamins (Thera M Plus) 1 tab DAILY PO Last administered on 03/09/18 08:20 ; Start 03/06/18 at 12:00 Polyethylene Glycol (miraLAX PACKET) 17 gm QHS PO Last administered on 21:04; Start 03/06/18 at 21:00 Sennosides (Senna) 8.6 mg DAILY PO Last administered on 03/09/18 08:20; Start 03/06/18 at 12:00 Sertraline HCl (Zoloft) 150 mg DAILY PO Last administered on 03/09/18 08:20; Start 03/06/18 at 12:00 Prochlorperazine Edisylate (Compazine) 10 mg PRN Q6HRS PRN IV NAUSEA/VOMITING Last administered on 03/10/18 20:58; Start 03/06/18 at 12:45 Darbepoetin Taran (Aranesp) 60 mcg WEEKLYHS SQ Last administered on 03/06/18 20: 52; Start 03/06/18 at 21:00 Magnesium Sulfate 50 ml @ 25 mls/hr PRN DAILY PRN IV for Mag < 1.7 on am labs; Start 03/06/18 at 13:45 Sodium Chloride 1,000 ml @ 1,000 mls/hr Q1H PRN IV hypotension; Start 03/06/18 at 12:30; Stop 03/06/18 at 18:29; Status DC Sodium Chloride 1,000 ml @ 400 mls/hr Q2H30M PRN IV PATENCY; Start 03/06/18 at 12:30; Stop 03/06/18 at 20:00; Status DC Info (PHARMACY MONITORING -- do not chart) 1 each PRN DAILY PRN MC SEE COMMENTS ; Start 03/06/18 at 15:00; Status UNV Info (PHARMACY MONITORING -- do not chart) 1 each PRN DAILY PRN MC SEE COMMENTS ; Start 03/06/18 at 15:00; Stop 03/07/18 at 16:17; Status DC Fentanyl (Duragesic 50mcg/ Hr Patch) 1 patch Q72H TD Last administered on at 20:55; Start 03/06/18 at 21:30 Sodium Chloride 1,000 ml @ 1,000 mls/hr Q1H PRN IV hypotension; Start 03/07/18 at 07:51; Stop 03/07/18 at 13:50; Status DC Albumin Human 200 ml @ 200 mls/hr 1X PRN PRN IV Hypotension; Start 03/07/18 at 08:00; Stop 03/07/18 at 13:59; Status DC Sodium Chloride 1,000 ml @ 400 mls/hr Q2H30M PRN IV PATENCY; Start 03/07/18 at 07:51; Stop 03/07/18 at 19:50; Status DC Info (PHARMACY MONITORING -- do not chart) 1 each PRN DAILY PRN MC SEE COMMENTS ; Start 03/07/18 at 08:00; Stop 03/09/18 at 18:51; Status DC Info (PHARMACY MONITORING -- do not chart) 1 each PRN DAILY PRN MC SEE COMMENTS ; Start 03/07/18 at 08:00; Status UNV Dexamethasone (Decadron) 12 mg DAILY PO ; Start 03/07/18 at 09:30; Stop 03/07/18 at 09:33; Status DC Dexamethasone (Decadron) 12 mg DAILY PO Last administered on 03/09/18at 08:20; Start 03/09/18 at 09:00 Pantoprazole Sodium (Protonix) 40 mg DAILYAC PO ; Start 03/08/18 at 07:30; Stop 03/08/18 at 07:30; Status DC Pantoprazole Sodium (PROTONIX VIAL for IV PUSH) 40 mg DAILYAC IVP Last administered on 03/09/18at 08:19; Start 03/08/18 at 07:30; Stop 03/09/18 at 12:24; Status DC Ferrous Sulfate (Iron Oral Solution) 300 mg DAILY PO Last administered on at 08:20; Start 03/08/18 at 10:30 Albumin Human 100 ml @ 100 mls/hr Q6HRS IV Last administered on 03/09/18at 17:28 ; Start 03/08/18 at 12:00; Stop 03/09/18 at 18:59; Status DC Sodium Chloride 1,000 ml @ 1,000 mls/hr Q1H PRN IV hypotension; Start 03/08/18 at 15:00; Stop 03/08/18 at 21:21; Status DC Sodium Chloride (Normal Saline Flush) 10 ml 1X PRN PRN IV AP catheter pack; Start 03/08/18 at 15:00; Stop 03/09/18 at 14:59; Status DC Sodium Chloride (Normal Saline Flush) 10 ml 1X PRN PRN IV [employer] catheter pack; Start 03/08/18 at 15:00; Stop 03/09/18 at 14:59; Status DC Info (PHARMACY MONITORING -- do not chart) 1 each PRN DAILY PRN MC SEE COMMENTS ; Start 03/08/18 at 21:15; Status Cancel Info (PHARMACY MONITORING -- do not chart) 1 each PRN DAILY PRN MC SEE COMMENTS ; Start 03/08/18 at 21:15 Pantoprazole Sodium (Protonix) 40 mg DAILYAC PO Last administered on 03/10/18at 08:20; Start 03/09/18 at 16:30 Sodium Chloride 1,000 ml @ 1,000 mls/hr Q1H PRN IV hypotension; Start 03/10/18 at 08:30; Stop 03/10/18 at 14:29; Status DC Sodium Chloride 1,000 ml @ 400 mls/hr Q2H30M PRN IV PATENCY; Start 03/10/18 at 08:30; Stop 03/10/18 at 20:29; Status DC Info (PHARMACY MONITORING -- do not chart) 1 each PRN DAILY PRN MC SEE COMMENTS ; Start 03/10/18 at 10:15; Status UNV Info (PHARMACY MONITORING -- do not chart) 1 each PRN DAILY PRN MC SEE COMMENTS ; Start 03/10/18 at 10:15; Status UNV Alteplase, Recombinant (Cathflo) 2 mg 1X ONCE INT CAT Last administered on 03/10at 14:04; Start 03/10/18 at 11:45; Stop 03/10/18 at 11:46; Status DC Amino Acids/ Glycerin/ Electrolytes 1,000 ml @ 50 mls/hr Q20H IV Last administered on 03/11/18at 16:25; Start 03/10/18 at 20:00 Alteplase, Recombinant (Cathflo) 2 mg 1X ONCE INT CAT Last administered on 03/10at 21:05; Start 03/10/18 at 20:00; Stop 03/10/18 at 20:16; Status DC Metoprolol Tartrate (Lopressor Vial) 5 mg 1X ONCE IVP Last administered on 03/11at 12:01; Start 03/11/18 at 12:00; Stop 03/11/18 at 12:01; Status DC Hydromorphone HCl (Dilaudid) 1 mg PRN Q4HRS PRN IV PAIN Last administered on 03/12/18at 05:10; Start 03/11/18 at 11:45 Sodium Chloride 500 ml @ 500 mls/hr 1X ONCE IV Last administered on 03/11/18at 12:02; Start 03/11/18 at 11:45; Stop 03/11/18 at 12:45; Status DC Metoprolol Tartrate (Lopressor Vial) 5 mg Q6HRS IVP ; Start 03/11/18 at 18:00; Stop 03/11/18 at 18:00; Status DC Alteplase, Recombinant (Cathflo) 2 mg 1X ONCE INT CAT ; Start 03/11/18 at 18:00 ; Stop 03/11/18 at 18:01; Status DC Metoprolol Tartrate (Lopressor Vial) 5 mg Q6HRS PRN IVP TACHYCARDIA Last administered on 03/12/18at 03:36; Start 03/11/18 at 18:00 Heparin Sodium (Porcine) (Hep Lock Adult) 500 unit 1X ONCE IV Last administered on 03/11/18at 18:20; Start 03/11/18 at 18:00; Stop 03/11/18 at 18:01; Status DC Acetaminophen (Tylenol Supp) 650 mg PRN Q6HRS PRN [place] MILD PAIN / TEMP; Start at 08:45 Throat Lozenges (Chloraseptic) 1 spray PRN Q2HR PRN PO SORE THROAT; Start at 08:45 Active Scripts Active Reported Zoloft (Sertraline Hcl) 100 Mg Tablet 150 Mg PO DAILY Senna Lax (Sennosides) 8.6 Mg Tablet 8.6 Mg PO DAILY Proair Hfa (Albuterol Sulfate) 8.5 Gm Hfa.aer.ad 2 Puff INH PRN Q6HRS PRN Miralax (Polyethylene Glycol 3350) 17 Gm Powd.pack 1 Pkt PO HS Oxycodone Hcl 5 Mg Capsule 20 Mg PO PRN Q4HRS PRN Oxycodone Hcl 5 Mg Capsule 10 Mg PO PRN Q4HRS PRN Ondansetron Odt (Ondansetron) 4 Mg Tab.rapdis 8 Mg PO PRN Q8HRS PRN One-Daily Multi-Vitamin (Multivitamin) 1 Each Tablet 1 Each PO HS Melatonin 3 Mg Tablet 1 Tab PO QHS Ativan (Lorazepam) 0.5 Mg Tablet 0.5 Mg PO PRN Q12HRS PRN Guaifenesin-Codeine Syrup (Guaifenesin/Codeine Phosphate) 118 Ml Liquid 10 Ml PO PRN Q4HRS PRN Flonase Allergy Relief (Fluticasone Propionate) 9.9 Ml [place].susp 1 Sprays NS DAILY FENTANYL 50mcg/hr (Fentanyl) 1 Each Patch.td72 1 Patch TP Q3DAYS Famotidine 40 Mg Tablet 20 Mg PO HS Dexamethasone 4 Mg Tablet 4 Tab PO DAILY Clonidine Hcl 0.1 Mg Tablet 0.1 Mg PO BID Carvedilol 25 Mg Tablet 6.25 Mg PO BIDWMEALS Calcium Acetate 667 Mg Tablet 667 Mg PO TIDWMEALS Vitals/I & O Vital Sign - Last 24 Hours 03/11/18 03/11/18 03/11/18 03/11/18 11:00 12:00 12:01 15:00 Temp 98.7 98.2 98.7 98.2 Pulse 134 134 127 Resp 16 16 B/P (MAP) 161/107 (125) 161/107 157/103 (121) Pulse Ox 96 99 O2 Delivery Nasal Cannula Nasal Cannula Nasal Cannula O2 Flow Rate 2.0 2.0 2.0 03/11/18 03/11/18 03/11/18 03/11/18 16:25 16:59 19:00 20:00 Temp 99.8 99.8 Pulse 136 Resp 19 B/P (MAP) 164/111 (128) Pulse Ox 93 O2 Delivery Room Air Nasal Cannula Room Air Nasal Cannula O2 Flow Rate 2.0 2.0 03/11/18 03/11/18 03/11/18 03/12/18 20:13 22:17 23:00 03:00 Temp 100.7 100.0 100.7 100.0 Pulse 136 133 140 Resp 18 17 B/P (MAP) 164/111 159/101 (120) 157/106 (123) Pulse Ox 93 94 96 O2 Delivery Nasal Cannula Room Air Room Air O2 Flow Rate 2.0 03/12/18 03/12/18 03/12/18 03:36 05:10 07:00 Temp 100.7 100.7 Pulse 140 120 Resp 18 B/P (MAP) 157/106 154/103 (120) Pulse Ox 96 96 O2 Delivery Nasal Cannula 3L O2 Flow Rate 2.0 Intake and Output 03/11/18 03/11/18 03/12/18 15:01 23:01 07:01 Output Total 450 ml 0 ml Balance -450 ml 0 ml Nutrition Consultation Dietary Evaluation: Recommendations by RD: Increase Calorie Intake, Protein supplementation Comments: sending ensure clear tid and active liquid protein tid Expected Outcomes/Goals: diet advancement/ tolerance Malnutrition Findings: Food and Nutrition Intake (Mod: <75% est energy req 7days Weight Status: Overweight JACKIE RODRIGUEZ MD Mar 12, 2018 09:01
--- NOTE | 2018-03-12 10:22 | PDOC ---
Renal-Progress Notes Subjective Notes Notes NO WORSE OR BETTER History of Present Illness Hx of present illness STABLE Vitals Vitals Vital Signs Date Time Temp Pulse Resp B/P (MAP) Pulse Ox O2 Delivery O2 Flow Rate FiO2 03/12/18 07:55 Nasal Cannula 3.0 03/12/18 07:00 100.7 120 18 154/103 (120) 96 100.7 Weight Weight [ ] I.O. Intake and Output Intake and Output 03/12/18 07:01 Output Total 450 ml Balance -450 ml Output Urine Total 0 ml Gastric Drainage Total 450 ml Labs Labs Laboratory Tests Test 03/12/18 06:03 White Blood Count 13.5 x10^3/uL (4.0-11.0) Red Blood Count 3.41 x10^6/uL (3.50-5.40) Hemoglobin 9.6 g/dL (12.0-15.5) Hematocrit 29.5 % (36.0-47.0) Mean Corpuscular Volume 87 fL (79-100) Mean Corpuscular Hemoglobin 28 pg (25-35) Mean Corpuscular Hemoglobin Concent 33 g/dL (31-37) Red Cell Distribution Width 19.5 % (11.5-14.5) Platelet Count 355 x10^3/uL (140-400) Neutrophils (%) (Auto) 89 % (31-73) Lymphocytes (%) (Auto) 4 % (24-48) Monocytes (%) (Auto) 7 % (0-9) Eosinophils (%) (Auto) 0 % (0-3) Basophils (%) (Auto) 0 % (0-3) Neutrophils # (Auto) 12.0 x10^3uL (1.8-7.7) Lymphocytes # (Auto) 0.5 x10^3/uL (1.0-4.8) Monocytes # (Auto) 0.9 x10^3/uL (0.0-1.1) Eosinophils # (Auto) 0.0 x10^3/uL (0.0-0.7) Basophils # (Auto) 0.0 x10^3/uL (0.0-0.2) Sodium Level 138 mmol/L (136-145) Potassium Level 4.6 mmol/L (3.5-5.1) Chloride Level 99 mmol/L (98-107) Carbon Dioxide Level 25 mmol/L (21-32) Anion Gap 14 (6-14) Blood Urea Nitrogen 74 mg/dL (7-20) Creatinine 3.2 mg/dL (0.6-1.0) Estimated GFR (Cockcroft-Gault) 14.9 Glucose Level 114 mg/dL (70-99) Calcium Level 8.5 mg/dL (8.5-10.1) Phosphorus Level 3.8 mg/dL (2.6-4.7) Albumin 2.6 g/dL (3.4-5.0) Micro Micro Microbiology 03/08/18 Anaerobic/Aerobic Culture, Resulted Pending 03/08/18 Anaerobic Culture Result 1 (TIMOTHY), Resulted Pending 03/08/18 Aerobic Culture - Final, Resulted 03/08/18 Aerobic Culture Result 1 (TIMOTHY) - Final, Resulted 03/08/18 Gram Stain - Final, Resulted 03/08/18 Gram Stain Result 1 (TIMOTHY) - Final, Resulted 03/08/18 Gram Stain Result 2 (TIMOTHY) - Final, Resulted Review of Systems Constitutional: yes: weakness, alert, oriented Ears/Nose/Throat: Yes: no symptom reported Eyes: Yes: no symptom reported Pulmonary: Yes no symptom reported Cardiovascular: Yes no symptom reported Gastrointestional: Yes: abdominal pain Genitourinary: Yes: no symptom reported Musculoskeletal: Yes: no symptom reported Skin: Yes no symptom reported Psychiatric/Neurological: Yes: depressed Endocrine: Yes: no symptom reported Physical Exam General Appearance: no apparent distress Skin: warm Respiratory: decreased breath sounds Heart: S1S2 Abdomen: soft, bowel sounds present Extremities: pulses present Neurology: alert, oriented Assessment Assessment IMP ESRD HTN FEVER LEUCOCYTOSIS ABD PAIN MET OVARIAN CANCER ANEMIA PLAN ANTIBIOTICS ARANESP PPN HD TOMORROW SHE STILL WANTS TO CONTINUE WITH HER HD PALLIATIVE CARE WOULD BE APPROPRIATE CASIMIRO SMITH MD Mar 12, 2018 10:22
--- NOTE | 2018-03-12 10:36 | PDOC ---
Subjective: Subjective: Abd feels better w/ NG. Objective: Objective: On PPN. RN reports 4 stools over the weekend. Vital Signs: Vital Signs Date Time Temp Pulse Resp B/P (MAP) Pulse Ox O2 Delivery O2 Flow Rate FiO2 03/12/18 07:55 Nasal Cannula 3.0 03/12/18 07:00 100.7 120 18 154/103 (120) 96 100.7 Labs: Laboratory Tests Test 03/12/18 06:03 White Blood Count 13.5 x10^3/uL Red Blood Count 3.41 x10^6/uL Hemoglobin 9.6 g/dL Hematocrit 29.5 % Mean Corpuscular Volume 87 fL Mean Corpuscular Hemoglobin 28 pg Mean Corpuscular Hemoglobin Concent 33 g/dL Red Cell Distribution Width 19.5 % Platelet Count 355 x10^3/uL Neutrophils (%) (Auto) 89 % Lymphocytes (%) (Auto) 4 % Monocytes (%) (Auto) 7 % Eosinophils (%) (Auto) 0 % Basophils (%) (Auto) 0 % Neutrophils # (Auto) 12.0 x10^3uL Lymphocytes # (Auto) 0.5 x10^3/uL Monocytes # (Auto) 0.9 x10^3/uL Eosinophils # (Auto) 0.0 x10^3/uL Basophils # (Auto) 0.0 x10^3/uL Sodium Level 138 mmol/L Potassium Level 4.6 mmol/L Chloride Level 99 mmol/L Carbon Dioxide Level 25 mmol/L Anion Gap 14 Blood Urea Nitrogen 74 mg/dL Creatinine 3.2 mg/dL Estimated GFR (Cockcroft-Gault) 14.9 Glucose Level 114 mg/dL Calcium Level 8.5 mg/dL Phosphorus Level 3.8 mg/dL Albumin 2.6 g/dL ANAEROBIC-AEROBIC CULTURE PENDING ANAEROBIC RES 1 PENDING AEROBIC CULT Final Final report AEROBIC RES 1 Final Comment No growth in 56 - 72 hours. GRAM STAIN Final Final report GRAM STAIN RES 1 Final Comment No white blood cells seen. GRAM STAIN RES 2 Final No organisms seen Imaging: KUB 03/11/18 IMPRESSION: The endogastric tube position further advanced into the stomach. Small bowel distention is stable. PE: GEN: ill HEENT: NGT w/ light brown-yellow output LUNGS: NC HEART: tachycardic ABD: abd maybe slightly softer NEURO/PSYCH: A & O �3 A/P: Fever, tachycardia, leukocytosis (better) Metastatic ovarian cancer, ascites s/p paracentesis ESRD on HD, chronic anemia ?ileus/SBO, abd pain/distention, n/v - NPO w/ NG, PPN -- Supportive care per GI, continue NG. ?palliative care to see ?atbx ?ID CAROL GOMEZ Mar 12, 2018 10:36
[2018-03-12 11:00] VITALS: BP 150/100
[2018-03-12] MEDS: AMINO AC 3%/ELECTROLYTE/GLYCER 1,000 ML IV SCH (12:23)
--- NOTE | 2018-03-12 14:28 | NUR ---
SW following for discharge planning. Discussed with RN, RN advised pt has an NG tube and is not ready for discharge. SW will continue to follow.
[2018-03-12 15:00] VITALS: BP 160/107
--- NOTE | 2018-03-12 15:03 | NUR ---
Patient has been tachycardic all night and morning. Dr. Mchugh was notified, patient does have metoprolol IV PRN Q6 hrs which has been given. Patient was told she might be moved to a telemetry unit so we could monitor her heart and patient flat out refused. This RN explained it was just to monitor her heart, there was no intervention. Patient still refused. Physician aware. Will continue to monitor patient.
[2018-03-12 19:00] VITALS: BP 144/92
[2018-03-12] MEDS: fentaNYL 50MCG/HR PATCH 1 PATCH PATCH.TD72 TD SCH (20:32)
[2018-03-12] MEDS: POLYETHYLENE GLYCOL 3350 17 GM PACKET. PO SCH (20:33)
[2018-03-12 23:00] VITALS: BP 149/96
[2018-03-13] MEDS: AMINO AC 3%/ELECTROLYTE/GLYCER 1,000 ML IV SCH ×2 (01:03→18:36)
[2018-03-13 03:00] VITALS: BP 138/89
[2018-03-13 05:51] LABS: BASO % 0 % (0-3); EOS % 0 % (0-3); HEMATOCRIT 27.9 % (36.0-47.0); LYMPH # 1.1 x10^3/uL (1.0-4.8); LYMPH % 7 % (24-48); MEAN CORPUSCULAR HEMOGLOBIN 28 pg (25-35); MEAN CORPUSCULAR HGB CONC 32 g/dL (31-37); MEAN CORPUSCULAR VOLUME 86 fL (79-100); MONO # 0.9 x10^3/uL (0.0-1.1); MONO % 6 % (0-9); NEUT # 13.3 x10^3uL (1.8-7.7); NEUT % 87 % (31-73); PLATELET COUNT 316 x10^3/uL (140-400); RED BLOOD COUNT 3.25 x10^6/uL (3.50-5.40); RED CELL DISTRIBUTION WIDTH 19.4 % (11.5-14.5); WHITE BLOOD COUNT 15.4 x10^3/uL (4.0-11.0)
[2018-03-13 06:18] LABS: ALBUMIN 2.3 g/dL (3.4-5.0); CALCIUM 8.5 mg/dL (8.5-10.1); GFR 11.5
[2018-03-13 06:28] LABS: POTASSIUM 5.4 mmol/L (3.5-5.1)
[2018-03-13 07:13] VITALS: BP 132/89
[2018-03-13] MEDS: CARVEDILOL 6.25 MG TABLET. PO SCH ×2 (07:44→12:21)
[2018-03-13] MEDS: CALCIUM ACETATE 667 MG CAPSULE PO SCH ×3 (07:45→12:22)
[2018-03-13] MEDS: FLUTICASONE 50MCG/NASAL SPRAY 16GM BOTTLE. NS SCH (07:45)
[2018-03-13] MEDS: cloNIDine HCL 0.1 MG TABLET PO SCH ×2 (07:45→21:00)
[2018-03-13] MEDS: MULTIVITAMIN with MINERAL TABLET. PO SCH (07:46)
[2018-03-13] MEDS: FERROUS SULFATE ORAL 300 MG/5 ML SOLUTION. PO SCH (07:46)
[2018-03-13] MEDS: DEXAMETHASONE 4 MG TABLET PO SCH ×2 (07:46→09:30)
[2018-03-13] MEDS: SERTRALINE 50 MG TABLET. PO SCH (07:46)
[2018-03-13] MEDS: SENNOSIDES 8.6 MG TABLET PO SCH (07:47)
[2018-03-13] MEDS: PANTOPRAZOLE IV PUSH 40 MG VIAL. IVP SCH (08:06)
[2018-03-13] MEDS: HYDROmorphone 2 MG/ML VIAL IV PRN ×2 (08:07→23:11)
--- NOTE | 2018-03-13 09:15 | PDOC ---
SUBJECTIVE Subjective S: Appears to be getting weaker, at bedside O: Physical exam: Gen: resting in bed, NAD, fatigued, NG tube in place Psych: depressed mood and tired affect Labs: reviewed Rads: BLE u/s neg for DVT, limited study Assessment and Plan: She is a 57-year-old female with metastatic ovarian cancer , not a candidate for further anticancer therapy due to poor functional status, she stays at [facility], and has end-stage renal disease on dialysis. Good candidate for, but not interested in hospice. On palliative dexamethasone, currently 12 mg daily, and on Aranesp for anemia w/ low iron sat. Anemia: Continue Aranesp, transfuse if <Hb of 7, even though ferritin elevated will add oral iron due to sat less than 20% BLE edema: us neg for DVT, albumin per nephro End-stage renal disease: On dialysis Ovarian cancer: NGT in place, no current active oncology tx, follow-up with pall care prn, will wean dexamethasone slowly, to 8 mg daily as of Mar, this can continue to be weaned over time as able. She confirms for me today that she is not interested in hospice as that would require her to stop dialysis. She could potentially get palliative care at home and continue dialysis if she feels strong enough to continue dialysis prior to the end-of-life which she is certainly getting nearer to. Thank you kindly, and please do not hesitate to call with any further questions. OBJECTIVE Vital Signs Vital Signs Date Time Temp Pulse Resp B/P (MAP) Pulse Ox O2 Delivery O2 Flow Rate FiO2 03/13/18 08:07 18 Nasal Cannula 3.0 03/13/18 07:45 125 132/89 03/13/18 07:44 125 132/89 03/13/18 07:13 97.6 125 19 132/89 (103) 96 Room Air 97.6 03/13/18 03:00 98.5 124 17 138/89 (105) 95 Room Air 98.5 03/13/18 00:42 19 97 Nasal Cannula 3.0 03/13/18 00:09 19 97 Nasal Cannula 3.0 03/12/18 23:23 131 149/96 03/12/18 23:22 16 97 Nasal Cannula 3.0 03/12/18 23:00 98.4 131 16 149/96 (113) 98 Room Air 98.4 03/12/18 20:32 18 97 Nasal Cannula 3.0 03/12/18 19:45 Nasal Cannula 3.0 03/12/18 19:00 98.4 131 17 144/92 (109) 97 Room Air 98.4 03/12/18 18:40 Nasal Cannula 3.0 03/12/18 15:00 99.3 104 18 160/107 (124) 96 3L 99.3 03/12/18 12:28 123 150/100 03/12/18 11:00 99.5 123 18 150/100 (117) 94 3L 99.5 I & O Intake and Output 03/13/18 07:01 Intake Total 1000 ml Output Total 500 ml Balance 500 ml IV Total 1000 ml Output Urine Total 0 ml Gastric Drainage Total 500 ml COMMENT Lab Laboratory Tests Test 03/13/18 05:20 White Blood Count 15.4 x10^3/uL (4.0-11.0) Red Blood Count 3.25 x10^6/uL (3.50-5.40) Hemoglobin 9.0 g/dL (12.0-15.5) Hematocrit 27.9 % (36.0-47.0) Mean Corpuscular Volume 86 fL (79-100) Mean Corpuscular Hemoglobin 28 pg (25-35) Mean Corpuscular Hemoglobin Concent 32 g/dL (31-37) Red Cell Distribution Width 19.4 % (11.5-14.5) Platelet Count 316 x10^3/uL (140-400) Neutrophils (%) (Auto) 87 % (31-73) Lymphocytes (%) (Auto) 7 % (24-48) Monocytes (%) (Auto) 6 % (0-9) Eosinophils (%) (Auto) 0 % (0-3) Basophils (%) (Auto) 0 % (0-3) Neutrophils # (Auto) 13.3 x10^3uL (1.8-7.7) Lymphocytes # (Auto) 1.1 x10^3/uL (1.0-4.8) Monocytes # (Auto) 0.9 x10^3/uL (0.0-1.1) Eosinophils # (Auto) 0.0 x10^3/uL (0.0-0.7) Basophils # (Auto) 0.0 x10^3/uL (0.0-0.2) Sodium Level 137 mmol/L (136-145) Potassium Level 5.4 mmol/L (3.5-5.1) Chloride Level 97 mmol/L (98-107) Carbon Dioxide Level 25 mmol/L (21-32) Anion Gap 15 (6-14) Blood Urea Nitrogen 109 mg/dL (7-20) Creatinine 4.0 mg/dL (0.6-1.0) Estimated GFR (Cockcroft-Gault) 11.5 Glucose Level 106 mg/dL (70-99) Calcium Level 8.5 mg/dL (8.5-10.1) Phosphorus Level 4.0 mg/dL (2.6-4.7) Albumin 2.3 g/dL (3.4-5.0) Nutrition Consultation Dietary Evaluation: Recommendations by RD: Increase Calorie Intake, Protein supplementation Comments: sending ensure clear tid and active liquid protein tid Expected Outcomes/Goals: diet advancement/ tolerance Malnutrition Findings: Food and Nutrition Intake (Mod: <75% est energy req 7days Weight Status: Overweight ROSALIO DANIELS MD Mar 13, 2018 09:15
[2018-03-13] MEDS ORDERED: IV NORMAL SALINE 1000ML BAG 1,000 ML IV PRN (10:05)
--- NOTE | 2018-03-13 10:10 | PDOC ---
PROGRESS NOTES Chief Complaint Chief Complaint Hyperkalemia Ovarian Cancer, METASTATIC End Stage Renal Disease, HD dependent Tachycardia small bowel obstruction by ct Ascites - s/p paracentesis (800cc) Abnormal KUB/CT - ?ileus/SBO PATIENT DESIRES TO BE A DNR History of Present Illness History of Present Illness PT seen and examined, spoke with nursing staff. PT TACHY requested iv metoprolol 5 mg q 4 hrs prn, NG in place now with some relief. She c/o worsening abdominal pain today, febrile 03/13/18, cultures drawn, returned positive for 2/4 bottles with GNR - 2 types. Started empiric rocephin. will consult palliative care. She does not wish to stop dialysis but understands she has metastatic ovarian cancer and wishes for palliation for this. Vitals Vitals Vital Signs Date Time Temp Pulse Resp B/P (MAP) Pulse Ox O2 Delivery O2 Flow Rate FiO2 03/13/18 08:07 18 Nasal Cannula 3.0 03/13/18 07:45 125 132/89 03/13/18 07:13 97.6 96 97.6 Physical Exam Physical Exam ABD distended, hypoactive BS, diffuse tenderness General: ALERT Heart: Other (tachycardia at 111 bpm) Abdomen: SOFT GEN: NAD LUNGS: CTAB HEART: RRR There is a small left pleural effusion. There is adjacent compressive atelectasis versus infiltrate. There is subsegmental atelectasis at the right lung base. There is a 6 cm solid noncalcified pulmonary nodule in the right middle lobe (series 2, image 9). A left lower lobe thoracostomy tube is partially profiled. There is suggestion of pleural thickening at the left lung base. Evaluation of the solid abdominal viscera is limited by lack of intravenous contrast. There is mild nodular contour of the hepatic parenchyma which may reflect underlying hepatic disease such as cirrhosis. Spleen is nonenlarged. There is focal hypoattenuation along the superior aspect of the spleen measuring 2.9 cm which is inadequately assessed without contrast. There is nodular thickening of the left adrenal gland which is indeterminate measuring up to 9 mm. A right adrenal gland is normal in appearance. There is mild atrophy of the pancreas. No peripancreatic inflammatory changes are identified. Gallbladder appears surgically absent. Abdominal aorta is normal in course and caliber with mild calcified atheromatous plaque. There are no pathologically enlarged lymph nodes in abdomen and pelvis. There is moderate to large volume abdominal ascites. Mild renal parenchymal atrophy. Duplex right renal collecting system is identified with prominence of the right renal collecting system and right ureter. Findings may be secondary to reflux. There is no hydronephrosis of the inferior moiety. Left kidney appears normal. No definite contour deforming renal masses are identified. Minimal oral contrast is noted. Differential air-fluid levels are identified. There are dilated small bowel loops measuring up to 3.6 cm. Large bowel is normal in caliber with moderate amount of stool. Stomach is normal in appearance. Evaluation for transition point is limited, however it does appear that the distal terminal ileum is somewhat decompressed. There is nodular thickening along the ventral abdominal wall the supra umbilical region measuring up to 14 mm. Findings are indeterminate and correlation with any prior surgical history is recommended. Anasarca is noted with edema and bilateral flanks. Pelvis evaluation is limited by ascites. Urinary bladder is within normal limits given degree of distention. No suspicious adnexal masses are identified. Supervision the left adnexa measures 2.1 cm suggestive of a dominant follicle. As osseous abnormality is identified. IMPRESSION: 1. Dilated small bowel loops most suggestive of small bowel obstruction without definite transition point visualized due to limited evaluation secondary to the lack of contrast opacification of small bowel loops as well as moderate to large volume abdominal ascites. Short-term follow-up radiographs may be of benefit to assess partial versus complete obstruction. 2. Suggestion of cirrhosis with abdominal ascites. No splenomegaly. Small left pleural effusion which appears loculated. Left-sided thoracostomy tube is partially profiled. Bibasilar subsegmental atelectasis versus infiltrates. 3. Indeterminate splenic lesion measuring 2.9 cm. Further evaluation with a contrast-enhanced CT study may be of benefit. 4. Fusiform thickening of the left adrenal gland may be secondary to adrenal hyperplasia. Attention on follow-up exams is recommended. 5. Nodular thickening is identified along the ventral abdominal wall in the supraumbilical region with nodules measuring up to 14 mm. Electronically signed by: Diane Trent MD (03/07/2018 3:45 PM) [id number] General: Alert, Oriented X3, Cooperative, No acute distress, moderate distress Heart: Regular rate, Normal S1, Normal S2, No murmurs, Gallops, Other (TACHY RATE 116) Lungs: Clear Abdomen: Normal bowel sounds, Soft, No tenderness, No hepatosplenomegaly, No masses Extremities: No clubbing, No cyanosis, No edema, Normal pulses, No tenderness/ swelling Labs LABS Laboratory Tests Test 03/13/18 05:20 White Blood Count 15.4 x10^3/uL (4.0-11.0) Red Blood Count 3.25 x10^6/uL (3.50-5.40) Hemoglobin 9.0 g/dL (12.0-15.5) Hematocrit 27.9 % (36.0-47.0) Mean Corpuscular Volume 86 fL (79-100) Mean Corpuscular Hemoglobin 28 pg (25-35) Mean Corpuscular Hemoglobin Concent 32 g/dL (31-37) Red Cell Distribution Width 19.4 % (11.5-14.5) Platelet Count 316 x10^3/uL (140-400) Neutrophils (%) (Auto) 87 % (31-73) Lymphocytes (%) (Auto) 7 % (24-48) Monocytes (%) (Auto) 6 % (0-9) Eosinophils (%) (Auto) 0 % (0-3) Basophils (%) (Auto) 0 % (0-3) Neutrophils # (Auto) 13.3 x10^3uL (1.8-7.7) Lymphocytes # (Auto) 1.1 x10^3/uL (1.0-4.8) Monocytes # (Auto) 0.9 x10^3/uL (0.0-1.1) Eosinophils # (Auto) 0.0 x10^3/uL (0.0-0.7) Basophils # (Auto) 0.0 x10^3/uL (0.0-0.2) Sodium Level 137 mmol/L (136-145) Potassium Level 5.4 mmol/L (3.5-5.1) Chloride Level 97 mmol/L (98-107) Carbon Dioxide Level 25 mmol/L (21-32) Anion Gap 15 (6-14) Blood Urea Nitrogen 109 mg/dL (7-20) Creatinine 4.0 mg/dL (0.6-1.0) Estimated GFR (Cockcroft-Gault) 11.5 Glucose Level 106 mg/dL (70-99) Calcium Level 8.5 mg/dL (8.5-10.1) Phosphorus Level 4.0 mg/dL (2.6-4.7) Albumin 2.3 g/dL (3.4-5.0) Assessment and Plan Assessmemt and Plan Problems Medical Problems: (1) Dialysis catheter clot or failure Status: Acute (2) Serum potassium elevated Status: Acute Comment Review of Relevant I have reviewed the following items arden (where applicable) has been applied. Labs Laboratory Tests Test 03/12/18 06:03 03/13/18 05:20 White Blood Count 13.5 x10^3/uL (4.0-11.0) 15.4 x10^3/uL (4.0-11.0) Red Blood Count 3.41 x10^6/uL (3.50-5.40) 3.25 x10^6/uL (3.50-5.40) Hemoglobin 9.6 g/dL (12.0-15.5) 9.0 g/dL (12.0-15.5) Hematocrit 29.5 % (36.0-47.0) 27.9 % (36.0-47.0) Mean Corpuscular Volume 87 fL (79-100) 86 fL (79-100) Mean Corpuscular Hemoglobin 28 pg (25-35) 28 pg (25-35) Mean Corpuscular Hemoglobin Concent 33 g/dL (31-37) 32 g/dL (31-37) Red Cell Distribution Width 19.5 % (11.5-14.5) 19.4 % (11.5-14.5) Platelet Count 355 x10^3/uL (140-400) 316 x10^3/uL (140-400) Neutrophils (%) (Auto) 89 % (31-73) 87 % (31-73) Lymphocytes (%) (Auto) 4 % (24-48) 7 % (24-48) Monocytes (%) (Auto) 7 % (0-9) 6 % (0-9) Eosinophils (%) (Auto) 0 % (0-3) 0 % (0-3) Basophils (%) (Auto) 0 % (0-3) 0 % (0-3) Neutrophils # (Auto) 12.0 x10^3uL (1.8-7.7) 13.3 x10^3uL (1.8-7.7) Lymphocytes # (Auto) 0.5 x10^3/uL (1.0-4.8) 1.1 x10^3/uL (1.0-4.8) Monocytes # (Auto) 0.9 x10^3/uL (0.0-1.1) 0.9 x10^3/uL (0.0-1.1) Eosinophils # (Auto) 0.0 x10^3/uL (0.0-0.7) 0.0 x10^3/uL (0.0-0.7) Basophils # (Auto) 0.0 x10^3/uL (0.0-0.2) 0.0 x10^3/uL (0.0-0.2) Sodium Level 138 mmol/L (136-145) 137 mmol/L (136-145) Potassium Level 4.6 mmol/L (3.5-5.1) 5.4 mmol/L (3.5-5.1) Chloride Level 99 mmol/L (98-107) 97 mmol/L (98-107) Carbon Dioxide Level 25 mmol/L (21-32) 25 mmol/L (21-32) Anion Gap 14 (6-14) 15 (6-14) Blood Urea Nitrogen 74 mg/dL (7-20) 109 mg/dL (7-20) Creatinine 3.2 mg/dL (0.6-1.0) 4.0 mg/dL (0.6-1.0) Estimated GFR (Cockcroft-Gault) 14.9 11.5 Glucose Level 114 mg/dL (70-99) 106 mg/dL (70-99) Calcium Level 8.5 mg/dL (8.5-10.1) 8.5 mg/dL (8.5-10.1) Phosphorus Level 3.8 mg/dL (2.6-4.7) 4.0 mg/dL (2.6-4.7) Albumin 2.6 g/dL (3.4-5.0) 2.3 g/dL (3.4-5.0) Laboratory Tests Test 03/13/18 05:20 White Blood Count 15.4 x10^3/uL (4.0-11.0) Red Blood Count 3.25 x10^6/uL (3.50-5.40) Hemoglobin 9.0 g/dL (12.0-15.5) Hematocrit 27.9 % (36.0-47.0) Mean Corpuscular Volume 86 fL (79-100) Mean Corpuscular Hemoglobin 28 pg (25-35) Mean Corpuscular Hemoglobin Concent 32 g/dL (31-37) Red Cell Distribution Width 19.4 % (11.5-14.5) Platelet Count 316 x10^3/uL (140-400) Neutrophils (%) (Auto) 87 % (31-73) Lymphocytes (%) (Auto) 7 % (24-48) Monocytes (%) (Auto) 6 % (0-9) Eosinophils (%) (Auto) 0 % (0-3) Basophils (%) (Auto) 0 % (0-3) Neutrophils # (Auto) 13.3 x10^3uL (1.8-7.7) Lymphocytes # (Auto) 1.1 x10^3/uL (1.0-4.8) Monocytes # (Auto) 0.9 x10^3/uL (0.0-1.1) Eosinophils # (Auto) 0.0 x10^3/uL (0.0-0.7) Basophils # (Auto) 0.0 x10^3/uL (0.0-0.2) Sodium Level 137 mmol/L (136-145) Potassium Level 5.4 mmol/L (3.5-5.1) Chloride Level 97 mmol/L (98-107) Carbon Dioxide Level 25 mmol/L (21-32) Anion Gap 15 (6-14) Blood Urea Nitrogen 109 mg/dL (7-20) Creatinine 4.0 mg/dL (0.6-1.0) Estimated GFR (Cockcroft-Gault) 11.5 Glucose Level 106 mg/dL (70-99) Calcium Level 8.5 mg/dL (8.5-10.1) Phosphorus Level 4.0 mg/dL (2.6-4.7) Albumin 2.3 g/dL (3.4-5.0) Microbiology 03/12/18 Blood Culture - Final, Complete 03/08/18 Anaerobic/Aerobic Culture - Final, Complete 03/08/18 Anaerobic Culture Result 1 (TIMOTHY) - Final, Complete 03/08/18 Aerobic Culture - Final, Complete 03/08/18 Aerobic Culture Result 1 (TIMOTHY) - Final, Complete 03/08/18 Gram Stain - Final, Complete 03/08/18 Gram Stain Result 1 (TIMOTHY) - Final, Complete 03/08/18 Gram Stain Result 2 (TIMOTHY) - Final, Complete Medications Current Medications Ondansetron HCl (Zofran) 4 mg PRN Q8HRS PRN IV NAUSEA/VOMITING Last administered on 03/06/18at 05:34; Start 03/05/18 at 22:00; Stop 03/06/18 at 21:59 ; Status DC Fentanyl Citrate (Fentanyl 2ml Vial) 50 mcg PRN Q1HR PRN IV PAIN Last administered on 03/06/18at 05:35; Start 03/05/18 at 22:00; Stop 03/06/18 at 21:59 ; Status DC Calcium Gluconate (Calcium Gluconate) 1,000 mg 1X ONCE IVP Last administered on 03/05/18at 23:23; Start 03/05/18 at 22:15; Stop 03/05/18 at 22:16; Status DC Sodium Bicarbonate (Sodium Bicarb Adult 8.4% Syr) 50 meq 1X ONCE IV Last administered on 03/05/18at 23:23; Start 03/05/18 at 22:15; Stop 03/05/18 at 22 :16; Status DC Sodium Polystyrene Sulfonate (Kayexalate) 30 gm 1X ONCE PO Last administered on 03/05/18at 23:23; Start 03/05/18 at 22:15; Stop 03/05/18 at 22:16; Status DC Ondansetron HCl (Zofran) 4 mg 1X ONCE IV Last administered on 03/05/18at 22:55 ; Start 03/05/18 at 22:45; Stop 03/05/18 at 22:55; Status DC Prochlorperazine Edisylate (Compazine) 10 mg PRN Q6HRS PRN IM NAUSEA/VOMITING; Start 03/06/18 at 06:15; Stop 03/06/18 at 12:32; Status DC Oxycodone HCl (Roxicodone) 10 mg PRN Q4HRS PRN PO MILD - MODERATE PAIN Last administered on 03/11/18at 00:24; Start 03/06/18 at 06:15 Oxycodone HCl (Roxicodone) 20 mg PRN Q4HRS PRN PO SEVERE PAIN; Start 03/06/18 at 06:15 Lidocaine/ Epinephrine (LIDOCAINE 1%-EPI 1:100,000 Multi-Dose) 20 ml STK-MED ONCE .ROUTE ; Start 03/06/18 at 09:11; Stop 03/06/18 at 09:12; Status DC Cefazolin Sodium 50 ml @ As Directed STK-MED ONCE IV ; Start 03/06/18 at 09:34; Stop 03/06/18 at 09:35; Status DC Midazolam HCl (Versed) 2 mg STK-MED ONCE .ROUTE ; Start 03/06/18 at 09:34; Stop 03/06/18 at 09:35; Status DC Fentanyl Citrate (Fentanyl 2ml Vial) 100 mcg STK-MED ONCE .ROUTE ; Start at 09:34; Stop 03/06/18 at 09:35; Status DC Heparin Sodium (Porcine) (Heparin Sodium) 10,000 unit STK-MED ONCE .ROUTE ; Start 03/06/18 at 09:44; Stop 03/06/18 at 09:46; Status DC Midazolam HCl (Versed) 2 mg 1X ONCE IV Last administered on 03/06/18at 10:11; Start 03/06/18 at 10:30; Stop 03/06/18 at 10:35; Status DC Fentanyl Citrate (Fentanyl 2ml Vial) 100 mcg 1X ONCE IV Last administered on at 10:11; Start 03/06/18 at 10:30; Stop 03/06/18 at 10:35; Status DC Lidocaine/ Epinephrine (LIDOCAINE 1%-EPI 1:100,000 Multi-Dose) 20 ml 1X ONCE IJ Last administered on 03/06/18at 10:09; Start 03/06/18 at 10:30; Stop 03/06/18 at 10:35; Status DC Cefazolin Sodium 50 ml @ 100 mls/hr 1X ONCE IV Last administered on 03/06/18at 10:11; Start 03/06/18 at 10:30; Stop 03/06/18 at 10:59; Status DC Heparin Sodium (Porcine) (Heparin Sodium) 4,200 unit 1X ONCE INT CAT Last administered on 03/06/18at 10:11; Start 03/06/18 at 10:30; Stop 03/06/18 at 10:35; Status DC Clonidine HCl (Catapres) 0.1 mg BID PO Last administered on 03/10/18 21:05; Start 03/06/18 at 12:00 Dexamethasone (Decadron) 16 mg DAILY PO Last administered on 03/07/18 13:12; Start 03/06/18 at 12:00; Stop 03/08/18 at 09:00; Status DC Fentanyl (Duragesic 50mcg/ Hr Patch) 1 patch Q3DAYS TD ; Start 03/06/18 at 21:00 ; Stop 03/06/18 at 21:05; Status DC Lorazepam (Ativan) 0.5 mg PRN Q12HRS PRN PO ANXIETY / AGITATION; Start 03/06/18 at 11:30 Ondansetron HCl (Zofran Odt) 8 mg PRN Q8HRS PRN PO NAUSEA/VOMITING Last administered on 03/11/18at 01:41; Start 03/06/18 at 11:30 Calcium Acetate (Phoslo) 667 mg TIDWMEALS PO Last administered on 03/09/18at 12: 09; Start 03/06/18 at 12:00 Carvedilol (Coreg) 6.25 mg BIDWMEALS PO Last administered on 03/10/18at 18:35; Start 03/06/18 at 12:00 Famotidine (Pepcid) 20 mg QHS PO Last administered on 03/06/18at 20:51; Start 03/06/18 at 21:00; Stop 03/07/18 at 13:15; Status DC Fluticasone Propionate (Flonase) 1 spray DAILY NS Last administered on at 12:16; Start 03/06/18 at 12:00 Guaifenesin/ Codeine Phosphate (Robitussin Ac) 10 ml PRN Q4HRS PRN PO COUGH; Start 03/06/18 at 11:45 Non-Formulary Medication (Melatonin ) 1 tab QHS PO ; Start 03/06/18 at 21:00; Status UNV Multivitamins (Thera M Plus) 1 tab DAILY PO Last administered on 03/09/18at 08:20 ; Start 03/06/18 at 12:00 Polyethylene Glycol (miraLAX PACKET) 17 gm QHS PO Last administered on at 21:04; Start 03/06/18 at 21:00 Sennosides (Senna) 8.6 mg DAILY PO Last administered on 03/09/18at 08:20; Start 03/06/18 at 12:00 Sertraline HCl (Zoloft) 150 mg DAILY PO Last administered on 03/09/18 08:20; Start 03/06/18 at 12:00 Prochlorperazine Edisylate (Compazine) 10 mg PRN Q6HRS PRN IV NAUSEA/VOMITING Last administered on 03/10/18at 20:58; Start 03/06/18 at 12:45 Darbepoetin Taran (Aranesp) 60 mcg WEEKLYHS SQ Last administered on 03/06/18at 20: 52; Start 03/06/18 at 21:00 Magnesium Sulfate 50 ml @ 25 mls/hr PRN DAILY PRN IV for Mag < 1.7 on am labs; Start 03/06/18 at 13:45 Sodium Chloride 1,000 ml @ 1,000 mls/hr Q1H PRN IV hypotension; Start 03/06/18 at 12:30; Stop 03/06/18 at 18:29; Status DC Sodium Chloride 1,000 ml @ 400 mls/hr Q2H30M PRN IV PATENCY; Start 03/06/18 at 12:30; Stop 03/06/18 at 20:00; Status DC Info (PHARMACY MONITORING -- do not chart) 1 each PRN DAILY PRN MC SEE COMMENTS ; Start 03/06/18 at 15:00; Status UNV Info (PHARMACY MONITORING -- do not chart) 1 each PRN DAILY PRN MC SEE COMMENTS ; Start 03/06/18 at 15:00; Stop 03/07/18 at 16:17; Status DC Fentanyl (Duragesic 50mcg/ Hr Patch) 1 patch Q72H TD Last administered on at 20:32; Start 03/06/18 at 21:30 Sodium Chloride 1,000 ml @ 1,000 mls/hr Q1H PRN IV hypotension; Start 03/07/18 at 07:51; Stop 03/07/18 at 13:50; Status DC Albumin Human 200 ml @ 200 mls/hr 1X PRN PRN IV Hypotension; Start 03/07/18 at 08:00; Stop 03/07/18 at 13:59; Status DC Sodium Chloride 1,000 ml @ 400 mls/hr Q2H30M PRN IV PATENCY; Start 03/07/18 at 07:51; Stop 03/07/18 at 19:50; Status DC Info (PHARMACY MONITORING -- do not chart) 1 each PRN DAILY PRN MC SEE COMMENTS ; Start 03/07/18 at 08:00; Stop 03/09/18 at 18:51; Status DC Info (PHARMACY MONITORING -- do not chart) 1 each PRN DAILY PRN MC SEE COMMENTS ; Start 03/07/18 at 08:00; Status UNV Dexamethasone (Decadron) 12 mg DAILY PO ; Start 03/07/18 at 09:30; Stop 03/07/18 at 09:33; Status DC Dexamethasone (Decadron) 12 mg DAILY PO Last administered on 03/09/18at 08:20; Start 03/09/18 at 09:00; Stop 03/13/18 at 09:17; Status DC Pantoprazole Sodium (Protonix) 40 mg DAILYAC PO ; Start 03/08/18 at 07:30; Stop 03/08/18 at 07:30; Status DC Pantoprazole Sodium (PROTONIX VIAL for IV PUSH) 40 mg DAILYAC IVP Last administered on 03/09/18at 08:19; Start 03/08/18 at 07:30; Stop 03/09/18 at 12:24; Status DC Ferrous Sulfate (Iron Oral Solution) 300 mg DAILY PO Last administered on at 08:20; Start 03/08/18 at 10:30 Albumin Human 100 ml @ 100 mls/hr Q6HRS IV Last administered on 03/09/18at 17:28 ; Start 03/08/18 at 12:00; Stop 03/09/18 at 18:59; Status DC Sodium Chloride 1,000 ml @ 1,000 mls/hr Q1H PRN IV hypotension; Start 03/08/18 at 15:00; Stop 03/08/18 at 21:21; Status DC Sodium Chloride (Normal Saline Flush) 10 ml 1X PRN PRN IV AP catheter pack; Start 03/08/18 at 15:00; Stop 03/09/18 at 14:59; Status DC Sodium Chloride (Normal Saline Flush) 10 ml 1X PRN PRN IV DISC PAD GRINDER catheter pack; Start 03/08/18 at 15:00; Stop 03/09/18 at 14:59; Status DC Info (PHARMACY MONITORING -- do not chart) 1 each PRN DAILY PRN MC SEE COMMENTS ; Start 03/08/18 at 21:15; Status Cancel Info (PHARMACY MONITORING -- do not chart) 1 each PRN DAILY PRN MC SEE COMMENTS ; Start 03/08/18 at 21:15 Pantoprazole Sodium (Protonix) 40 mg DAILYAC PO Last administered on 03/10/18at 08:20; Start 03/09/18 at 16:30; Stop 03/12/18 at 10:38; Status DC Sodium Chloride 1,000 ml @ 1,000 mls/hr Q1H PRN IV hypotension; Start 03/10/18 at 08:30; Stop 03/10/18 at 14:29; Status DC Sodium Chloride 1,000 ml @ 400 mls/hr Q2H30M PRN IV PATENCY; Start 03/10/18 at 08:30; Stop 03/10/18 at 20:29; Status DC Info (PHARMACY MONITORING -- do not chart) 1 each PRN DAILY PRN MC SEE COMMENTS ; Start 03/10/18 at 10:15; Status UNV Info (PHARMACY MONITORING -- do not chart) 1 each PRN DAILY PRN MC SEE COMMENTS ; Start 03/10/18 at 10:15; Status UNV Alteplase, Recombinant (Cathflo) 2 mg 1X ONCE INT CAT Last administered on 03/10at 14:04; Start 03/10/18 at 11:45; Stop 03/10/18 at 11:46; Status DC Amino Acids/ Glycerin/ Electrolytes 1,000 ml @ 80 mls/hr [id number] IV Last administered on 03/13/18at 01:03; Start 03/10/18 at 20:00 Alteplase, Recombinant (Cathflo) 2 mg 1X ONCE INT CAT Last administered on 03/10at 21:05; Start 03/10/18 at 20:00; Stop 03/10/18 at 20:16; Status DC Metoprolol Tartrate (Lopressor Vial) 5 mg 1X ONCE IVP Last administered on 03/11at 12:01; Start 03/11/18 at 12:00; Stop 03/11/18 at 12:01; Status DC Hydromorphone HCl (Dilaudid) 1 mg PRN Q4HRS PRN IV PAIN Last administered on 03/13/18at 08:07; Start 03/11/18 at 11:45 Sodium Chloride 500 ml @ 500 mls/hr 1X ONCE IV Last administered on 03/11/18at 12:02; Start 03/11/18 at 11:45; Stop 03/11/18 at 12:45; Status DC Metoprolol Tartrate (Lopressor Vial) 5 mg Q6HRS IVP ; Start 03/11/18 at 18:00; Stop 03/11/18 at 18:00; Status DC Alteplase, Recombinant (Cathflo) 2 mg 1X ONCE INT CAT ; Start 03/11/18 at 18:00 ; Stop 03/11/18 at 18:01; Status DC Metoprolol Tartrate (Lopressor Vial) 5 mg Q6HRS PRN IVP TACHYCARDIA Last administered on 03/12/18at 23:23; Start 03/11/18 at 18:00 Heparin Sodium (Porcine) (Hep Lock Adult) 500 unit 1X ONCE IV Last administered on 03/11/18at 18:20; Start 03/11/18 at 18:00; Stop 03/11/18 at 18:01; Status DC Acetaminophen (Tylenol Supp) 650 mg PRN Q6HRS PRN FL MILD PAIN / TEMP Last administered on 03/12/18at 09:27; Start 03/12/18 at 08:45 Throat Lozenges (Chloraseptic) 1 spray PRN Q2HR PRN PO SORE THROAT Last administered on 03/12/18at 09:26; Start 03/12/18 at 08:45 Pantoprazole Sodium (PROTONIX VIAL for IV PUSH) 40 mg DAILYAC IVP Last administered on 03/13/18at 08:06; Start 03/13/18 at 07:30 Dexamethasone (Decadron) 8 mg DAILY PO ; Start 03/13/18 at 09:30 Ceftriaxone Sodium (Rocephin) 1 gm Q24H IVP ; Start 03/13/18 at 10:15; Status UNV Piperacillin Sod/ Tazobactam Sod 3.375 gm/Sodium Chloride 50 ml @ 100 mls/hr Q6HRS IV ; Start 03/13/18 at 12:00; Status UNV Active Scripts Active Reported Zoloft (Sertraline Hcl) 100 Mg Tablet 150 Mg PO DAILY Senna Lax (Sennosides) 8.6 Mg Tablet 8.6 Mg PO DAILY Proair Hfa (Albuterol Sulfate) 8.5 Gm Hfa.aer.ad 2 Puff INH PRN Q6HRS PRN Miralax (Polyethylene Glycol 3350) 17 Gm Powd.pack 1 Pkt PO HS Oxycodone Hcl 5 Mg Capsule 20 Mg PO PRN Q4HRS PRN Oxycodone Hcl 5 Mg Capsule 10 Mg PO PRN Q4HRS PRN Ondansetron Odt (Ondansetron) 4 Mg Tab.rapdis 8 Mg PO PRN Q8HRS PRN One-Daily Multi-Vitamin (Multivitamin) 1 Each Tablet 1 Each PO HS Melatonin 3 Mg Tablet 1 Tab PO QHS Ativan (Lorazepam) 0.5 Mg Tablet 0.5 Mg PO PRN Q12HRS PRN Guaifenesin-Codeine Syrup (Guaifenesin/Codeine Phosphate) 118 Ml Liquid 10 Ml PO PRN Q4HRS PRN Flonase Allergy Relief (Fluticasone Propionate) 9.9 Ml [place].susp 1 Sprays NS DAILY FENTANYL 50mcg/hr (Fentanyl) 1 Each Patch.td72 1 Patch TP Q3DAYS Famotidine 40 Mg Tablet 20 Mg PO HS Dexamethasone 4 Mg Tablet 4 Tab PO DAILY Clonidine Hcl 0.1 Mg Tablet 0.1 Mg PO BID Carvedilol 25 Mg Tablet 6.25 Mg PO BIDWMEALS Calcium Acetate 667 Mg Tablet 667 Mg PO TIDWMEALS Vitals/I & O Vital Sign - Last 24 Hours 03/12/18 03/12/18 03/12/18 03/12/18 11:00 12:28 15:00 18:40 Temp 99.5 99.3 99.5 99.3 Pulse 123 123 104 Resp 18 18 B/P (MAP) 150/100 (117) 150/100 160/107 (124) Pulse Ox 94 96 O2 Delivery 3L 3L Nasal Cannula O2 Flow Rate 3.0 03/12/18 03/12/18 03/12/18 1/7/19 19:00 19:45 20:32 23:00 Temp 98.4 98.4 98.4 98.4 Pulse 131 131 Resp 17 18 16 B/P (MAP) 144/92 (109) 149/96 (113) Pulse Ox 97 97 98 O2 Delivery Room Air Nasal Cannula Nasal Cannula Room Air O2 Flow Rate 3.0 3.0 03/12/18 03/12/18 03/13/18 03/13/18 23:22 23:23 00:09 00:42 Pulse 131 Resp 16 19 B/P (MAP) 149/96 Pulse Ox 97 97 97 O2 Delivery Nasal Cannula Nasal Cannula Nasal Cannula O2 Flow Rate 3.0 3.0 3.0 03/13/18 03/13/18 03/13/18 03/13/18 03:00 07:13 07:44 07:45 Temp 98.5 97.6 98.5 97.6 Pulse 124 125 125 125 Resp 19 B/P (MAP) 138/89 (105) 132/89 (103) 132/89 132/89 Pulse Ox 95 96 O2 Delivery Room Air Room Air 03/13/18 08:07 Resp 18 O2 Delivery Nasal Cannula O2 Flow Rate 3.0 Intake and Output 03/12/18 03/12/18 03/13/18 15:01 23:01 07:01 Intake Total 1000 ml Output Total 500 ml 0 ml Balance 1000 ml -500 ml 0 ml Nutrition Consultation Dietary Evaluation: Recommendations by RD: Increase Calorie Intake, Protein supplementation Comments: sending ensure clear tid and active liquid protein tid Expected Outcomes/Goals: diet advancement/ tolerance Malnutrition Findings: Food and Nutrition Intake (Mod: <75% est energy req 7days Weight Status: Overweight JACKIE RODRIGUEZ MD Mar 13, 2018 10:10
[2018-03-13] MEDS ORDERED: DIALYSIS PATIENT. MC PRN ×2 (10:15)
[2018-03-13] MEDS ORDERED: ALBUMIN HUMAN 25% 200 ML IV PRN (10:15)
[2018-03-13] MEDS ORDERED: cefTRIAXone IV Push 1 GM VIAL. IVP SCH (10:30)
--- NOTE | 2018-03-13 11:20 | PDOC ---
Renal-Progress Notes Subjective Notes Notes ASLEEP ON HD History of Present Illness Hx of present illness NO CHANGE Vitals Vitals Vital Signs Date Time Temp Pulse Resp B/P (MAP) Pulse Ox O2 Delivery O2 Flow Rate FiO2 03/13/18 08:37 18 96 Nasal Cannula 3.0 03/13/18 07:45 125 132/89 03/13/18 07:13 97.6 97.6 Weight Weight [ ] I.O. Intake and Output Intake and Output 03/13/18 07:01 Intake Total 1000 ml Output Total 500 ml Balance 500 ml IV Total 1000 ml Output Urine Total 0 ml Gastric Drainage Total 500 ml Labs Labs Laboratory Tests Test 03/13/18 05:20 White Blood Count 15.4 x10^3/uL (4.0-11.0) Red Blood Count 3.25 x10^6/uL (3.50-5.40) Hemoglobin 9.0 g/dL (12.0-15.5) Hematocrit 27.9 % (36.0-47.0) Mean Corpuscular Volume 86 fL (79-100) Mean Corpuscular Hemoglobin 28 pg (25-35) Mean Corpuscular Hemoglobin Concent 32 g/dL (31-37) Red Cell Distribution Width 19.4 % (11.5-14.5) Platelet Count 316 x10^3/uL (140-400) Neutrophils (%) (Auto) 87 % (31-73) Lymphocytes (%) (Auto) 7 % (24-48) Monocytes (%) (Auto) 6 % (0-9) Eosinophils (%) (Auto) 0 % (0-3) Basophils (%) (Auto) 0 % (0-3) Neutrophils # (Auto) 13.3 x10^3uL (1.8-7.7) Lymphocytes # (Auto) 1.1 x10^3/uL (1.0-4.8) Monocytes # (Auto) 0.9 x10^3/uL (0.0-1.1) Eosinophils # (Auto) 0.0 x10^3/uL (0.0-0.7) Basophils # (Auto) 0.0 x10^3/uL (0.0-0.2) Sodium Level 137 mmol/L (136-145) Potassium Level 5.4 mmol/L (3.5-5.1) Chloride Level 97 mmol/L (98-107) Carbon Dioxide Level 25 mmol/L (21-32) Anion Gap 15 (6-14) Blood Urea Nitrogen 109 mg/dL (7-20) Creatinine 4.0 mg/dL (0.6-1.0) Estimated GFR (Cockcroft-Gault) 11.5 Glucose Level 106 mg/dL (70-99) Calcium Level 8.5 mg/dL (8.5-10.1) Phosphorus Level 4.0 mg/dL (2.6-4.7) Albumin 2.3 g/dL (3.4-5.0) Micro Micro Microbiology 03/12/18 Blood Culture - Final, Complete 03/08/18 Anaerobic/Aerobic Culture - Final, Complete 03/08/18 Anaerobic Culture Result 1 (TIMOTHY) - Final, Complete 03/08/18 Aerobic Culture - Final, Complete 03/08/18 Aerobic Culture Result 1 (TIMOTHY) - Final, Complete 03/08/18 Gram Stain - Final, Complete 03/08/18 Gram Stain Result 1 (TIMOTHY) - Final, Complete 03/08/18 Gram Stain Result 2 (TIMOTHY) - Final, Complete Review of Systems Ears/Nose/Throat: Yes: no symptom reported Eyes: Yes: no symptom reported Pulmonary: Yes no symptom reported Cardiovascular: Yes no symptom reported Gastrointestional: Yes: abdominal pain Genitourinary: Yes: no symptom reported Musculoskeletal: Yes: no symptom reported Skin: Yes no symptom reported Psychiatric/Neurological: Yes: depressed Endocrine: Yes: no symptom reported Physical Exam General Appearance: no apparent distress Skin: warm Respiratory: decreased breath sounds Heart: S1S2 Abdomen: soft, bowel sounds present Extremities: pulses present Neurology: alert, oriented Assessment Assessment IMP ESRD HTN FEVER LEUCOCYTOSIS ABD PAIN MET OVARIAN CANCER ANEMIA PLAN ANTIBIOTICS ARANESP HD TODAY UF TO DW SHE STILL WANTS TO CONTINUE WITH HER HD PALLIATIVE CARE WOULD BE APPROPRIATE CASIMIRO SMITH MD Mar 13, 2018 11:20
[2018-03-13] MEDS ORDERED: PIPERACILLIN/TAZOBACTAM 3.375 GM in IV NORMAL SALINE 50ML 50 ML IV SCH (12:00)
--- NOTE | 2018-03-13 12:03 | NUR ---
SW following for dc planning. Pt is from [facility]. Per RN, pt is not ready for discharge. Pt is on PPN and has an NG. Pt may be wanting palliative care upon discharge. SW will continue to follow.
--- NOTE | 2018-03-13 12:25 | PDOC ---
Subjective: Subjective: Can't really say how she feels. Objective: Vital Signs: Vital Signs Date Time Temp Pulse Resp B/P (MAP) Pulse Ox O2 Delivery O2 Flow Rate FiO2 03/13/18 08:37 18 96 Nasal Cannula 3.0 03/13/18 07:45 125 132/89 03/13/18 07:13 97.6 97.6 Labs: Laboratory Tests Test 03/13/18 05:20 White Blood Count 15.4 x10^3/uL Red Blood Count 3.25 x10^6/uL Hemoglobin 9.0 g/dL Hematocrit 27.9 % Mean Corpuscular Volume 86 fL Mean Corpuscular Hemoglobin 28 pg Mean Corpuscular Hemoglobin Concent 32 g/dL Red Cell Distribution Width 19.4 % Platelet Count 316 x10^3/uL Neutrophils (%) (Auto) 87 % Lymphocytes (%) (Auto) 7 % Monocytes (%) (Auto) 6 % Eosinophils (%) (Auto) 0 % Basophils (%) (Auto) 0 % Neutrophils # (Auto) 13.3 x10^3uL Lymphocytes # (Auto) 1.1 x10^3/uL Monocytes # (Auto) 0.9 x10^3/uL Eosinophils # (Auto) 0.0 x10^3/uL Basophils # (Auto) 0.0 x10^3/uL Sodium Level 137 mmol/L Potassium Level 5.4 mmol/L Chloride Level 97 mmol/L Carbon Dioxide Level 25 mmol/L Anion Gap 15 Blood Urea Nitrogen 109 mg/dL Creatinine 4.0 mg/dL Estimated GFR (Cockcroft-Gault) 11.5 Glucose Level 106 mg/dL Calcium Level 8.5 mg/dL Phosphorus Level 4.0 mg/dL Albumin 2.3 g/dL ANAEROBIC-AEROBIC CULTURE Final Final report ANAEROBIC RES 1 Final Bacteroides fragilis 4+ AEROBIC CULT Final Final report AEROBIC RES 1 Final Comment No growth in 56 - 72 hours. GRAM STAIN Final Final report GRAM STAIN RES 1 Final Comment No white blood cells seen. GRAM STAIN RES 2 Final No organisms seen BLOOD CULTURE Final VERY TINY GRAM NEGATIVE RODS, IN BOTH ANAEROBIC BOTTLES, 2 OF 4,TWO SETS DRAWN PE: GEN: dialyzing, ill LUNGS: NC HEART: tachycardic ABD: quiet NEURO/PSYCH: awakens briefly - seems slower today A/P: Bacteremia - gram neg rods Metastatic ovarian cancer, ascites s/p paracentesis - Bacteroides fragilis ESRD on HD Ileus/partial SBO -- ID involved. Continue same per GI. CAROL GOMEZ Mar 13, 2018 12:25
--- NOTE | 2018-03-13 12:45 | NUR ---
Pt returned from dialysis at 1245 by this RN; medications behind by time, will run in order of urgency. Procalamine is not yet completed, will restart old bottle once antibiotics are run.
--- NOTE | 2018-03-13 13:57 | PDOC ---
Infectious Disease Note Vital Sign Vital Signs Vital Signs Date Time Temp Pulse Resp B/P (MAP) Pulse Ox O2 Delivery O2 Flow Rate FiO2 03/13/18 08:37 18 96 Nasal Cannula 3.0 03/13/18 07:45 125 132/89 03/13/18 07:13 97.6 97.6 Physical Exam PHYSICAL EXAM ABD distended, hypoactive BS, diffuse tenderness General: ALERT Heart: Other (tachycardia at 111 bpm) Abdomen: SOFT GEN: NAD LUNGS: CTAB HEART: RRR There is a small left pleural effusion. There is adjacent compressive atelectasis versus infiltrate. There is subsegmental atelectasis at the right lung base. There is a 6 cm solid noncalcified pulmonary nodule in the right middle lobe (series 2, image 9). A left lower lobe thoracostomy tube is partially profiled. There is suggestion of pleural thickening at the left lung base. Evaluation of the solid abdominal viscera is limited by lack of intravenous contrast. There is mild nodular contour of the hepatic parenchyma which may reflect underlying hepatic disease such as cirrhosis. Spleen is nonenlarged. There is focal hypoattenuation along the superior aspect of the spleen measuring 2.9 cm which is inadequately assessed without contrast. There is nodular thickening of the left adrenal gland which is indeterminate measuring up to 9 mm. A right adrenal gland is normal in appearance. There is mild atrophy of the pancreas. No peripancreatic inflammatory changes are identified. Gallbladder appears surgically absent. Abdominal aorta is normal in course and caliber with mild calcified atheromatous plaque. There are no pathologically enlarged lymph nodes in abdomen and pelvis. There is moderate to large volume abdominal ascites. Mild renal parenchymal atrophy. Duplex right renal collecting system is identified with prominence of the right renal collecting system and right ureter. Findings may be secondary to reflux. There is no hydronephrosis of the inferior moiety. Left kidney appears normal. No definite contour deforming renal masses are identified. Minimal oral contrast is noted. Differential air-fluid levels are identified. There are dilated small bowel loops measuring up to 3.6 cm. Large bowel is normal in caliber with moderate amount of stool. Stomach is normal in appearance. Evaluation for transition point is limited, however it does appear that the distal terminal ileum is somewhat decompressed. There is nodular thickening along the ventral abdominal wall the supra umbilical region measuring up to 14 mm. Findings are indeterminate and correlation with any prior surgical history is recommended. Anasarca is noted with edema and bilateral flanks. Pelvis evaluation is limited by ascites. Urinary bladder is within normal limits given degree of distention. No suspicious adnexal masses are identified. Supervision the left adnexa measures 2.1 cm suggestive of a dominant follicle. As osseous abnormality is identified. IMPRESSION: 1. Dilated small bowel loops most suggestive of small bowel obstruction without definite transition point visualized due to limited evaluation secondary to the lack of contrast opacification of small bowel loops as well as moderate to large volume abdominal ascites. Short-term follow-up radiographs may be of benefit to assess partial versus complete obstruction. 2. Suggestion of cirrhosis with abdominal ascites. No splenomegaly. Small left pleural effusion which appears loculated. Left-sided thoracostomy tube is partially profiled. Bibasilar subsegmental atelectasis versus infiltrates. 3. Indeterminate splenic lesion measuring 2.9 cm. Further evaluation with a contrast-enhanced CT study may be of benefit. 4. Fusiform thickening of the left adrenal gland may be secondary to adrenal hyperplasia. Attention on follow-up exams is recommended. 5. Nodular thickening is identified along the ventral abdominal wall in the supraumbilical region with nodules measuring up to 14 mm. Electronically signed by: Diane Trent MD (03/07/2018 3:45 PM) [id number] Labs Lab Laboratory Tests Test 03/13/18 05:20 White Blood Count 15.4 x10^3/uL (4.0-11.0) Red Blood Count 3.25 x10^6/uL (3.50-5.40) Hemoglobin 9.0 g/dL (12.0-15.5) Hematocrit 27.9 % (36.0-47.0) Mean Corpuscular Volume 86 fL (79-100) Mean Corpuscular Hemoglobin 28 pg (25-35) Mean Corpuscular Hemoglobin Concent 32 g/dL (31-37) Red Cell Distribution Width 19.4 % (11.5-14.5) Platelet Count 316 x10^3/uL (140-400) Neutrophils (%) (Auto) 87 % (31-73) Lymphocytes (%) (Auto) 7 % (24-48) Monocytes (%) (Auto) 6 % (0-9) Eosinophils (%) (Auto) 0 % (0-3) Basophils (%) (Auto) 0 % (0-3) Neutrophils # (Auto) 13.3 x10^3uL (1.8-7.7) Lymphocytes # (Auto) 1.1 x10^3/uL (1.0-4.8) Monocytes # (Auto) 0.9 x10^3/uL (0.0-1.1) Eosinophils # (Auto) 0.0 x10^3/uL (0.0-0.7) Basophils # (Auto) 0.0 x10^3/uL (0.0-0.2) Sodium Level 137 mmol/L (136-145) Potassium Level 5.4 mmol/L (3.5-5.1) Chloride Level 97 mmol/L (98-107) Carbon Dioxide Level 25 mmol/L (21-32) Anion Gap 15 (6-14) Blood Urea Nitrogen 109 mg/dL (7-20) Creatinine 4.0 mg/dL (0.6-1.0) Estimated GFR (Cockcroft-Gault) 11.5 Glucose Level 106 mg/dL (70-99) Calcium Level 8.5 mg/dL (8.5-10.1) Phosphorus Level 4.0 mg/dL (2.6-4.7) Albumin 2.3 g/dL (3.4-5.0) Micro Microbiology 03/12/18 Blood Culture - Final, Complete 03/08/18 Anaerobic/Aerobic Culture - Final, Complete 03/08/18 Anaerobic Culture Result 1 (TIMOTHY) - Final, Complete 03/08/18 Aerobic Culture - Final, Complete 03/08/18 Aerobic Culture Result 1 (TIMOTHY) - Final, Complete 03/08/18 Gram Stain - Final, Complete 03/08/18 Gram Stain Result 1 (TIMOTHY) - Final, Complete 03/08/18 Gram Stain Result 2 (TIMOTHY) - Final, Complete Objective Assessment Peritonitis - Bacteroides Mar 08 GNR sepsis - 03/12 Tiny GNR - likely anaerobes. larger rods also Metastatic ovarian cancer, ascites s/p paracentesis - Bacteroides fragilis ESRD on HD Ileus/partial SBO Plan Plan of Care Cont Zosyn Added Flagyl Repeat cults in am May need port and HD cath removed F/u labs D/w Dr. Mchugh Thank you # [phone] KATIE JONES MD Mar 13, 2018 13:57
[2018-03-13 14:56] VITALS: BP 144/97
[2018-03-13] MEDS: PIPERACILLIN/TAZOBACTAM 2.25 GM in IV NORMAL SALINE 50ML 50 ML IV SCH ×2 (14:59→22:22)
--- NOTE | 2018-03-13 15:27 | CONS ---
DATE OF CONSULTATION: 03/13/2018 INFECTIOUS DISEASE CONSULTATION ROOM: 560, but seen in the dialysis unit. REQUESTING PHYSICIAN: Dr. Mchugh. REASON FOR CONSULTATION: Bacteremia. HISTORY OF PRESENT ILLNESS: The patient is a 57-year-old female. She has a history of progressive ovarian cancer, chronic kidney disease on hemodialysis. She is undergoing palliative care, but does not want hospice. She is essentially nonverbal. She reportedly had a subdural hematoma, which makes it difficult for her to speak. She was admitted to [facility] about the first or so of March secondary to dialysis catheter failure. She has a Port-A-Cath on the right chest as well as left hemodialysis catheter. She was seen by GI, was noted to have ascites. She underwent a paracentesis on the , apparently there is no fluid numbers collected, but her cultures are now growing Bacteroides fragilis species. Yesterday, she had blood cultures obtained x 2 and they turned positive on 2/4 sets for tiny gram-negative rods as well as a few larger gram-negative rods. Rocephin has been started. I discontinued that and added Zosyn as she did have Bacteroides and is concerned that she could have anaerobic bloodstream infection. Additionally, I added Flagyl. Currently, the patient is in dialysis. She appears comfortable and is only able to voice that she is okay. PAST MEDICAL HISTORY: Positive for progressive ovarian cancer. She has got end-stage renal disease, on hemodialysis. She has had Avastin-induced thrombocytopenia, allergic rhinitis, constipation, history of subdural hematoma, NSTEMI, gastroesophageal reflux disease, hypertension, hyperlipidemia, depression. PAST SURGICAL HISTORY: Positive for total hysterectomy with lymph node dissection, appendectomy, tonsillectomy, HD catheter placements, Port-A-Cath placements and paracentesis. REVIEW OF SYSTEMS: Unable to obtain. ALLERGIES: LISTED TAXOL, AVASTIN, MILK AND IV CONTRAST. SOCIAL HISTORY: She is . She quit tobacco in 2011. FAMILY HISTORY: Positive for lung and prostate cancer. CURRENT MEDICATIONS: Included dexamethasone started today, pantoprazole, metoprolol, hydromorphone, she is on TPN, ferrous sulfate, fentanyl, magnesium, sertraline, Coreg, clonidine, Zofran, lorazepam, oxycodone and the Rocephin that was changed to Zosyn and Flagyl as I mentioned above. PHYSICAL EXAMINATION: VITAL SIGNS: She is afebrile, although yesterday she had temps up to 100.7, currently 97.6, pulse 125, respiration 18, blood pressure 132/89, satting 96% on 3 liters. CONSTITUTIONAL: She is undergoing dialysis. She is alert. She is trying to vocalize some, but is minimal. HEENT: Her pupils equal and reactive. She has normal conjunctivae. Oral cavity, pharynx was clear. NECK: Supple. She has a Port-A-Cath in right chest without signs of any complications and left hemodialysis catheter without signs of any complications or tenderness. LUNGS: Decreased in the bases. HEART: S1, S2. ABDOMEN: Mildly distended. She has decreased bowel sounds. She also has an NG tube in place. Her paracentesis site on the right mid lower quadrant is clean without signs of any complications. EXTREMITIES: Without clubbing, cyanosis. She has 1+ lower extremity edema. SKIN: Warm to touch without any obvious rash. NEUROLOGIC: She is alert and responds to questions. Affect is flat. LABORATORY DATA: White count 15.4, hemoglobin 9, platelets 316, neutrophils 87. Creatinine of 4, glucose 106, AST was 47, ALT was 16. Hepatitis B antigens were negative. KUB from the 03/11/2018, NG tube in place, small bowel distention, stable. IMPRESSION: 1. Peritonitis with Bacteroides obtained on 03/08/2018. 2. Gram-negative sepsis from the 03/12/2018 with tiny gram-negative rods, likely anaerobes and larger rods also. 3. Metastatic ovarian cancer. 4. Ascites, status post paracentesis. 5. End-stage renal disease, on hemodialysis. 6. Ileus/partial small-bowel obstruction. RECOMMENDATIONS: For now, continue Zosyn. I did add Flagyl. Repeat cultures in the morning. May need port and HD catheter removed. Followup labs as discussed with Dr. Mchugh. Thank you for allowing me to participate in the patient's care. Should you have any further questions, please do not hesitate to contact me. KATIE JONES MD DR: DANIELLE/spencer JOB#: [id number] / [id number]
[2018-03-13 19:20] VITALS: BP 134/88
[2018-03-13] MEDS: POLYETHYLENE GLYCOL 3350 17 GM PACKET. PO SCH (21:00)
[2018-03-13] MEDS: DARBEPOETIN ALFA 60 MCG/0.3 ML DISP.SYRIN. SQ SCH (21:03)
[2018-03-13 23:14] VITALS: BP 134/81
[2018-03-14] VITALS (24 sets, daily range): BP systolic 92–144; BP diastolic 60–95
[2018-03-14] MEDS: AMINO AC 3%/ELECTROLYTE/GLYCER 1,000 ML IV SCH ×2 (00:53→13:58)
--- NOTE | 2018-03-14 03:40 | NUR ---
Patient's spouse calls, patient reports she cannot breathe, O2 on 3 L, sat 45%, increased flow to 6 L, 80%, rapid response called at 0346, Radha, Nursing education supervisor, RT, rn women services Dasha Snyder to room, abg's, cxr, other orders received (note order hx), patient transferred to ICU, room 109, accompanied per , belongings per spouse, transferred at approximately 0430.
[2018-03-14 04:06] LABS: BASE EXCESS ABG -3 mmol/L (-3-3); HCO3 ABG 25 mmol/L (21-28); PO2 ABG 71 mmHg (75-108); SAT O2 ABG 91 % (92-99)
[2018-03-14] MEDS: HYDROmorphone 2 MG/ML VIAL IV PRN ×4 (04:12→22:10)
[2018-03-14 04:21] LABS: FIO2 ABG 100
[2018-03-14 04:22] LABS: PCO2 ABG 66 mmHg (35-46)
--- NOTE | 2018-03-14 05:00 | NUR ---
Patient transferred to room 109 via bed with O2 Non-rebreather at 15L, accompanied by RNx2 and patient's who brought belongings which includes wheelchair. Patient oriented to ICU routine, room, nursing call light, bed/TV control, activity (Bedrest at this time), pain scale, POC and introduced to this RN. After explanation and agreement the patient was immediately placed on BiPap with settings of IPAP 20, EPAP 8, rate 20, and O2 100%--these settings slowly increased O2 saturation to >92%. Attempted to draw blood for lab and blood cultur from right chest portacath without any return od blood. Port de-accessed and re-accessed with a larger Patel needle again and flushes well but again unable to withdraw blood. Port de-accessed and re-accessed with the smaller Patel needle flushed fine and unable to withdraw blood--lab notified to draw patient's lab. Patient code status is DNI. See assessment.
--- NOTE | 2018-03-14 05:02 | RAD ---
AP chest. HISTORY: Short of breath AP view was taken of the chest. Right Port-A-Cath, left dialysis catheter and left Pleurx catheter are unchanged. There is a small left pleural effusion and a small right effusion. There is an NG tube in the stomach. There are infiltrates in the lung bases. There are possible pulmonary nodules. Pattern is similar to the recent study from March 09. IMPRESSION: 1. Tubes and lines remain in position. 2. NG tube in the stomach. 3. Persistent infiltrates in pleural effusions. Electronically signed by: Eduar Combs MD (03/14/2018 4:58 AM) [id number]
--- NOTE | 2018-03-14 05:03 | RAD ---
Supine abdomen. HISTORY: Difficulty breathing breathing, ascites Supine view was taken of the abdomen. There is an NG tube in the stomach. There is persistent small bowel distention marginally less prominent than the study from March 11. IMPRESSION: 1. NG tube in the stomach. 2. Persistent mild small bowel distention. Electronically signed by: Eduar Combs MD (03/14/2018 4:59 AM) [id number]
[2018-03-14 05:28] LABS: BASO % 0 % (0-3); EOS % 0 % (0-3); HEMOGLOBIN 8.9 g/dL (12.0-15.5); LYMPH # 1.1 x10^3/uL (1.0-4.8); LYMPH % 7 % (24-48); MEAN CORPUSCULAR HEMOGLOBIN 28 pg (25-35); MEAN CORPUSCULAR HGB CONC 31 g/dL (31-37); MEAN CORPUSCULAR VOLUME 89 fL (79-100); MONO % 6 % (0-9); NEUT # 14.9 x10^3uL (1.8-7.7); NEUT % 87 % (31-73); PLATELET COUNT 307 x10^3/uL (140-400); RED BLOOD COUNT 3.26 x10^6/uL (3.50-5.40); RED CELL DISTRIBUTION WIDTH 19.7 % (11.5-14.5); WHITE BLOOD COUNT 17.1 x10^3/uL (4.0-11.0)
[2018-03-14] MEDS: METOPROLOL TARTRATE 5 MG/5 ML VIAL. IVP PRN (05:28)
[2018-03-14] MEDS: PIPERACILLIN/TAZOBACTAM 2.25 GM in IV NORMAL SALINE 50ML 50 ML IV SCH ×3 (05:35→22:11)
[2018-03-14 05:53] LABS: CALCIUM 8.4 mg/dL (8.5-10.1); CREATININE 3.2 mg/dL (0.6-1.0); GFR 14.9; POTASSIUM 4.9 mmol/L (3.5-5.1)
--- NOTE | 2018-03-14 06:17 | NUR ---
Rapid Response Note Rapid response called at 0348 for respiratory distress. Patient was found by the aide with a SPO2 of 45% on 3L NC. RT placed patient on 50% VM which caused the SPO2 to go to the 80s, then patient was placed on an NRB which improved SPO2 to the 90s. Patient taking shallow breaths, answering questions appropriately. Said had some pain in the chest with breathing, EKG completed. HR in the 110s/120s, BP stable. CXR and KUB done stat. ABG drawn, critical results received, called to Dr. Grimaldo who wanted to transfer the patient and place on BiPAP. Family at bedside.
--- NOTE | 2018-03-14 07:00 | NUR ---
Dr Stokes here, notified of transfer, BiPap, and updated on patient's condition to include sepsis.
--- NOTE | 2018-03-14 07:57 | PDOC ---
Infectious Disease Note Subjective Subjective Events noted On Bipap ROS ROS Unobtainable Vital Sign Vital Signs Vital Signs Date Time Temp Pulse Resp B/P (MAP) Pulse Ox O2 Delivery O2 Flow Rate FiO2 03/14/18 05:28 122 102/68 03/14/18 05:20 93 BiPAP/CPAP 03/14/18 04:12 20 03/14/18 04:04 15.0 03/14/18 03:09 98.2 98.2 Physical Exam PHYSICAL EXAM CONSTITUTIONAL: She is alert. She is trying to vocalize some, but is minimal. HEENT: Her pupils equal and reactive. On bipap NECK: Supple. She has a Port-A-Cath in right chest without signs of any complications and left hemodialysis catheter without signs of any complications or tenderness. LUNGS: Decreased in the bases. HEART: S1, S2. ABDOMEN: Mildly - mod distended. She has decreased bowel sounds. She also has an NG tube in place. Her paracentesis site on the right mid lower quadrant is clean without signs of any complications. EXTREMITIES: Without clubbing, cyanosis. She has 1+ lower extremity edema. SKIN: Warm to touch without any obvious rash. NEUROLOGIC: She is alert Affect is flat. Labs Lab Laboratory Tests Test 03/14/18 04:01 03/14/18 05:15 O2 Saturation 91 % (92-99) Arterial Blood pH 7.20 (7.35-7.45) Arterial Blood pCO2 at Patient Temp 66 mmHg (35-46) Arterial Blood pO2 at Patient Temp 71 mmHg (75-108) Arterial Blood HCO3 25 mmol/L (21-28) Arterial Blood Base Excess -3 mmol/L (-3-3) FiO2 100 White Blood Count 17.1 x10^3/uL (4.0-11.0) Red Blood Count 3.26 x10^6/uL (3.50-5.40) Hemoglobin 8.9 g/dL (12.0-15.5) Hematocrit 29.0 % (36.0-47.0) Mean Corpuscular Volume 89 fL (79-100) Mean Corpuscular Hemoglobin 28 pg (25-35) Mean Corpuscular Hemoglobin Concent 31 g/dL (31-37) Red Cell Distribution Width 19.7 % (11.5-14.5) Platelet Count 307 x10^3/uL (140-400) Neutrophils (%) (Auto) 87 % (31-73) Lymphocytes (%) (Auto) 7 % (24-48) Monocytes (%) (Auto) 6 % (0-9) Eosinophils (%) (Auto) 0 % (0-3) Basophils (%) (Auto) 0 % (0-3) Neutrophils # (Auto) 14.9 x10^3uL (1.8-7.7) Lymphocytes # (Auto) 1.1 x10^3/uL (1.0-4.8) Monocytes # (Auto) 1.0 x10^3/uL (0.0-1.1) Eosinophils # (Auto) 0.0 x10^3/uL (0.0-0.7) Basophils # (Auto) 0.0 x10^3/uL (0.0-0.2) Sodium Level 137 mmol/L (136-145) Potassium Level 4.9 mmol/L (3.5-5.1) Chloride Level 98 mmol/L (98-107) Carbon Dioxide Level 27 mmol/L (21-32) Anion Gap 12 (6-14) Blood Urea Nitrogen 68 mg/dL (7-20) Creatinine 3.2 mg/dL (0.6-1.0) Estimated GFR (Cockcroft-Gault) 14.9 Glucose Level 117 mg/dL (70-99) Calcium Level 8.4 mg/dL (8.5-10.1) Micro Microbiology 03/12/18 Blood Culture - Final, Complete 03/08/18 Anaerobic/Aerobic Culture - Final, Complete 03/08/18 Anaerobic Culture Result 1 (TIMOTHY) - Final, Complete 03/08/18 Aerobic Culture - Final, Complete 03/08/18 Aerobic Culture Result 1 (TIMOTHY) - Final, Complete 03/08/18 Gram Stain - Final, Complete 03/08/18 Gram Stain Result 1 (TIMOTHY) - Final, Complete 03/08/18 Gram Stain Result 2 (TIMOTHY) - Final, Complete Objective Assessment Acute Resp Failure now on Bipap. Pleurx in place Leukocytosis - on Steroids Peritonitis - Bacteroides Cornelio 3 GNR sepsis - 03/12 Tiny GNR - likely anaerobes. larger rods also Metastatic ovarian cancer, ascites s/p paracentesis - Bacteroides fragilis ESRD on HD Ileus/partial SBO Plan Plan of Care Cont Zosyn Added Flagyl 03/13/18 Repeat cults in am Dose Vanc times one Await Pulm eval. Repeat Lower Ext U/S - initially as allergic to contrast Check Lactate May need port and HD cath removed F/u labs Critically ill D/w nursing D/w KATIE JONES MD Mar 14, 2018 07:57
[2018-03-14] MEDS: CARVEDILOL 6.25 MG TABLET. PO SCH ×2 (08:00→17:00)
[2018-03-14] MEDS: CALCIUM ACETATE 667 MG CAPSULE PO SCH ×3 (08:00→17:00)
[2018-03-14] MEDS ORDERED: VANCOMYCIN 1.25 GM in IV NORMAL SALINE 250ML 250 ML IV ONE (08:15)
[2018-03-14] MEDS: SENNOSIDES 8.6 MG TABLET PO SCH (09:00)
[2018-03-14] MEDS: MULTIVITAMIN with MINERAL TABLET. PO SCH (09:00)
[2018-03-14] MEDS: DEXAMETHASONE 4 MG TABLET PO SCH (09:00)
[2018-03-14] MEDS: FERROUS SULFATE ORAL 300 MG/5 ML SOLUTION. PO SCH (09:00)
[2018-03-14] MEDS: SERTRALINE 50 MG TABLET. PO SCH (09:00)
[2018-03-14] MEDS: cloNIDine HCL 0.1 MG TABLET PO SCH ×2 (09:00→21:00)
[2018-03-14] MEDS: FLUTICASONE 50MCG/NASAL SPRAY 16GM BOTTLE. NS SCH (09:00)
[2018-03-14] MEDS: PANTOPRAZOLE IV PUSH 40 MG VIAL. IVP SCH (09:03)
--- NOTE | 2018-03-14 09:23 | RAD ---
Bilateral lower extremity venous ultrasound, 03/14/2018: History: Shortness of breath Duplex evaluation of the deep veins in the lower extremities was performed including grayscale, color-flow and spectral Doppler analysis. The common femoral, superficial femoral and popliteal veins demonstrate normal compressibility and normal responses to distal augmentation maneuvers. Color imaging of those vessels shows no evidence of intraluminal clot. The calf veins are poorly visualized in this patient. No calf vein DVT is identified. IMPRESSION: There is no sonographic evidence of deep vein thrombosis in either lower extremity. Electronically signed by: Alexis Ray MD (03/14/2018 9:19 AM) [facility]
[2018-03-14 10:12] LABS: BASE EXCESS ABG -4 mmol/L (-3-3); HCO3 ABG 25 mmol/L (21-28); PO2 ABG 98 mmHg (75-108); SAT O2 ABG 96 % (92-99)
[2018-03-14 10:18] LABS: FIO2 ABG 80; PCO2 ABG 68 mmHg (35-46)
[2018-03-14] MEDS ORDERED: SODIUM BICARB ADULT 8.4% 50 MEQ/50 ML DISP.SYRIN. IV ONE (10:45)
--- NOTE | 2018-03-14 11:02 | PDOC ---
Renal-Progress Notes Subjective Notes Notes SOMNOLENT History of Present Illness Hx of present illness DETERIORATION Vitals Vitals Vital Signs Date Time Temp Pulse Resp B/P (MAP) Pulse Ox O2 Delivery O2 Flow Rate FiO2 03/14/18 11:00 20 BiPAP/CPAP 03/14/18 10:00 105 114/77 (89) 97 03/14/18 08:00 98.2 98.2 03/14/18 04:45 15.0 Weight Weight [ ] I.O. Intake and Output Intake and Output 03/14/18 07:01 Intake Total 750 ml Output Total 301 ml Balance 449 ml Intake Oral 0 ml IV Total 750 ml Output Urine Total 1 ml Oral Regurgitation 300 ml Labs Labs Laboratory Tests Test 03/14/18 04:01 03/14/18 05:15 03/14/18 09:30 03/14/18 09:55 O2 Saturation 91 % (92-99) 96 % (92-99) Arterial Blood pH 7.20 (7.35-7.45) 7.18 (7.35-7.45) Arterial Blood pCO2 at Patient Temp 66 mmHg (35-46) 68 mmHg (35-46) Arterial Blood pO2 at Patient Temp 71 mmHg (75-108) 98 mmHg (75-108) Arterial Blood HCO3 25 mmol/L (21-28) 25 mmol/L (21-28) Arterial Blood Base Excess -3 mmol/L (-3-3) -4 mmol/L (-3-3) FiO2 100 80 White Blood Count 17.1 x10^3/uL (4.0-11.0) Red Blood Count 3.26 x10^6/uL (3.50-5.40) Hemoglobin 8.9 g/dL (12.0-15.5) Hematocrit 29.0 % (36.0-47.0) Mean Corpuscular Volume 89 fL (79-100) Mean Corpuscular Hemoglobin 28 pg (25-35) Mean Corpuscular Hemoglobin Concent 31 g/dL (31-37) Red Cell Distribution Width 19.7 % (11.5-14.5) Platelet Count 307 x10^3/uL (140-400) Neutrophils (%) (Auto) 87 % (31-73) Lymphocytes (%) (Auto) 7 % (24-48) Monocytes (%) (Auto) 6 % (0-9) Eosinophils (%) (Auto) 0 % (0-3) Basophils (%) (Auto) 0 % (0-3) Neutrophils # (Auto) 14.9 x10^3uL (1.8-7.7) Lymphocytes # (Auto) 1.1 x10^3/uL (1.0-4.8) Monocytes # (Auto) 1.0 x10^3/uL (0.0-1.1) Eosinophils # (Auto) 0.0 x10^3/uL (0.0-0.7) Basophils # (Auto) 0.0 x10^3/uL (0.0-0.2) Sodium Level 137 mmol/L (136-145) Potassium Level 4.9 mmol/L (3.5-5.1) Chloride Level 98 mmol/L (98-107) Carbon Dioxide Level 27 mmol/L (21-32) Anion Gap 12 (6-14) Blood Urea Nitrogen 68 mg/dL (7-20) Creatinine 3.2 mg/dL (0.6-1.0) Estimated GFR (Cockcroft-Gault) 14.9 Glucose Level 117 mg/dL (70-99) Calcium Level 8.4 mg/dL (8.5-10.1) Lactic Acid Level 0.5 mmol/L (0.4-2.0) Micro Micro Microbiology 03/12/18 Blood Culture - Final, Complete 03/08/18 Anaerobic/Aerobic Culture - Final, Complete 03/08/18 Anaerobic Culture Result 1 (TIMOTHY) - Final, Complete 03/08/18 Aerobic Culture - Final, Complete 03/08/18 Aerobic Culture Result 1 (TIMOTHY) - Final, Complete 03/08/18 Gram Stain - Final, Complete 03/08/18 Gram Stain Result 1 (TIMOTHY) - Final, Complete 03/08/18 Gram Stain Result 2 (TIMOTHY) - Final, Complete Review of Systems Ears/Nose/Throat: Yes: no symptom reported Eyes: Yes: no symptom reported Pulmonary: Yes no symptom reported Cardiovascular: Yes no symptom reported Gastrointestional: Yes: abdominal pain Genitourinary: Yes: no symptom reported Musculoskeletal: Yes: no symptom reported Skin: Yes no symptom reported Psychiatric/Neurological: Yes: depressed Endocrine: Yes: no symptom reported Physical Exam General Appearance: no apparent distress Skin: warm Respiratory: decreased breath sounds Heart: S1S2 Abdomen: soft, bowel sounds present Extremities: pulses present Neurology: alert, oriented Assessment Assessment IMP ACIDEMIA ACUTE RESP FAILURE ESRD HTN FEVER LEUCOCYTOSIS ABD PAIN MET OVARIAN CANCER ANEMIA PLAN ANTIBIOTICS ARANESP PALLIATIVE/COMFORT CARE D/W DR MERCHANT AND CASIMIRO GARCIA MD Mar 14, 2018 11:02
--- NOTE | 2018-03-14 11:05 | CONS ---
DATE OF CONSULTATION: PULMONARY CONSULTATION ATTENDING PHYSICIAN: Dr. Truong. REASON FOR CONSULTATION: Respiratory failure. HISTORY OF PRESENT ILLNESS: The patient is a 57-year-old female with history of progressive ovarian cancer and end-stage renal disease, on dialysis. She developed renal failure as a result of chemo toxicity. The patient is not a candidate for any further chemo. She has been followed at palliative care at as well. 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 The patient was hospitalized to [facility] on 03/05/2018 with failed dialysis catheter and also had hyperkalemia and [id number] renal failure. She has been seen by multiple consultants. Last night, Rapid Response was called, which was around 04:00 a.m. and I was informed about the patient's status. Arterial blood gases were done and pH was 7.20, pCO2 of 66 and a pO2 of 71 with bicarbonate of 25. This was obtained on 100% FiO2. At that time, the patient has been on a nonrebreather mask as well as a Ventimask. I had placed the patient on BiPAP and she was transferred to the ICU. Her chest x-rays have been reviewed and the latest one done early this morning showed bibasilar pleural effusions with bibasilar infiltrates and mild vascular congestion. Her hemodialysis catheter is in appropriate position. She also has a chronic pleural catheter on the left side for chronic effusions. Latest ABGs while on BiPAP at a rate of 16/6 and rate of 16 shows a pH of 7.17, pCO2 of 68 and a pO2 of 98 with bicarbonate of 24.6. She is requiring 80% oxygen. Her is at the bedside. Dr. Abad and I had a long discussion with the regarding her progression of disease and multisystem organ involvement and also regarding discussion of advanced care. In terms of her progression of her disease and poor prognosis, her agrees to be DNR and DNI. He also understands that if there is any further progression of the disease and her respiratory status continues to deteriorate, then I have recommended we should go for palliative care and comfort care only and he is agreeable with that as well. PAST MEDICAL HISTORY: Significant for history of end-stage renal disease, on hemodialysis; history of metastatic ovarian cancer; history of chronic left-sided pleural effusion; history of small pleural catheter; history of non-STEMI; GERD; hypertension; hyperlipidemia; depression; reported history of subdural hematoma; allergic rhinitis and history of Avastin-induced thrombotic microangiopathy. PAST SURGICAL HISTORY: Total hysterectomy with lymph node dissection, appendectomy, hemodialysis catheter with multiple times replacements, port placement and paracentesis. ALLERGIES: AVASTIN, MILK, IV CONTRAST AND PACLITAXEL. MEDICATIONS: Reviewed as listed in the MRAD, including broad-spectrum antibiotics. REVIEW OF SYSTEMS: System review is limited, but pertinent positives are discussed in my history of present illness. She denies any chest pain. She does have some shortness of breath. No headaches. No nausea, vomiting or diarrhea. PHYSICAL EXAMINATION: VITAL SIGNS: She is on BiPAP. Blood pressure latest is 105 systolic, afebrile, pulse ox 95%. HEENT: Sclerae nonicteric. NECK: Supple. LUNGS: With diminished breath sounds at the bases. CARDIOVASCULAR EXAMINATION: With a regular rate. ABDOMEN: Soft. EXTREMITIES: With bilateral lower extremity trace pitting edema. LABORATORY DATA: Labs are reviewed. ABGs are all discussed in my history of present illness. Her chemistries revealed a BUN of 68 and a creatinine of 3.2 with bicarbonate of 27. Her INR is 1.2. White cell count 17.1, hemoglobin 8.9 and platelets are 307,000. Her venous Dopplers of the lower extremities shows no evidence of DVT. Her chest x-ray findings are discussed in my history of present illness. IMPRESSION: 1. Progressive hypercapnic and hypoxic respiratory failure secondary to multifactorial etiologies. The patient had progressive metastatic ovarian cancer with ongoing congestive heart failure and bilateral effusions, suspected extreme weakness contributing to hypercapnia as well. Cannot exclude the possibility of thromboembolic disease but clinically less likely 2. End-stage renal disease, on hemodialysis. 3. Metastatic ovarian cancer. 4. History of subdural hematoma. 5. History of gastroesophageal reflux disease. 6. Non-ST elevation myocardial infarction. 7. Depression. 8. Hyperlipidemia. RECOMMENDATIONS: 1. As discussed with the patient's and in view of the poor prognosis, he is agreeable to be DNR/DNI. He also understands that if there is any further progression of her respiratory status and she does not turn around, then we will go with palliative care and he is agreeable with that. 2. In the meantime, I will make some changes in the BiPAP. I have increased the IPAP and respiratory rate and reduced the oxygen flow. 3. At this time, I do not see any further need for any diagnostic or invasive workup. 4. Follow ABGs and make necessary adjustments. 5. Continue antibiotics. 6. Venous Dopplers are negative. 7. Supportive care and follow recommendations of Renal and Oncology. 8. DVT prophylaxis. 9. Stress ulcer prophylaxis. 10. Discussed with RN and RT and discussed with Dr. Abad and her . CRITICAL CARE TIME: 40 minutes. RAEGAN MERCHANT MD DR: ALICE/spencer JOB#: [id number] / [id number] CARLOS
[2018-03-14] MEDS: HEPARIN for SUB-Q USE 5,000 UNIT/ML VIAL. SQ SCH ×2 (12:00→22:13)
--- NOTE | 2018-03-14 12:14 | PDOC ---
Objective: Objective: Reviewed chart, d/w RN and Dr. Re chavarria DNR, monitoring pulm status w/ consideration for comfort care. Vital Signs: Vital Signs Date Time Temp Pulse Resp B/P (MAP) Pulse Ox O2 Delivery O2 Flow Rate FiO2 03/14/18 11:30 20 BiPAP/CPAP 03/14/18 11:00 100 109/70 (83) 95 03/14/18 08:00 98.2 98.2 03/14/18 04:45 15.0 Labs: Laboratory Tests Test 03/14/18 04:01 03/14/18 05:15 03/14/18 09:30 03/14/18 09:55 O2 Saturation 91 % 96 % Arterial Blood pH 7.20 7.18 Arterial Blood pCO2 at Patient Temp 66 mmHg 68 mmHg Arterial Blood pO2 at Patient Temp 71 mmHg 98 mmHg Arterial Blood HCO3 25 mmol/L 25 mmol/L Arterial Blood Base Excess -3 mmol/L -4 mmol/L FiO2 100 80 White Blood Count 17.1 x10^3/uL Red Blood Count 3.26 x10^6/uL Hemoglobin 8.9 g/dL Hematocrit 29.0 % Mean Corpuscular Volume 89 fL Mean Corpuscular Hemoglobin 28 pg Mean Corpuscular Hemoglobin Concent 31 g/dL Red Cell Distribution Width 19.7 % Platelet Count 307 x10^3/uL Neutrophils (%) (Auto) 87 % Lymphocytes (%) (Auto) 7 % Monocytes (%) (Auto) 6 % Eosinophils (%) (Auto) 0 % Basophils (%) (Auto) 0 % Neutrophils # (Auto) 14.9 x10^3uL Lymphocytes # (Auto) 1.1 x10^3/uL Monocytes # (Auto) 1.0 x10^3/uL Eosinophils # (Auto) 0.0 x10^3/uL Basophils # (Auto) 0.0 x10^3/uL Sodium Level 137 mmol/L Potassium Level 4.9 mmol/L Chloride Level 98 mmol/L Carbon Dioxide Level 27 mmol/L Anion Gap 12 Blood Urea Nitrogen 68 mg/dL Creatinine 3.2 mg/dL Estimated GFR (Cockcroft-Gault) 14.9 Glucose Level 117 mg/dL Calcium Level 8.4 mg/dL Lactic Acid Level 0.5 mmol/L PE: GEN: ill LUNGS: BiPAP HEART: tachycardic ABD: distended, a few gurgles, NG bilious NEURO/PSYCH: A & O �3 A/P: Resp failure - multi-factorial Peritonitis, GNR sepsis Metastatic ovarian cancer, ESRD -- Consideration for comfort care if resp status does not improve. CAROL GOMEZ Mar 14, 2018 12:14
--- NOTE | 2018-03-14 12:23 | NUR ---
Nursing Note Heparin to start at 2100 per MD order. Multiple doctors discussed prognosis with patient and ; DNR/DNI-- Will see how the next 24 hours go and if lungs improve. If they do not; patient and family are agreeable to comfort care. Patient on bipap; morning ABG critical- Settings adjusted; Bicarb push; will recheck around 1230. VSS Will continue to monitor Brigette TRAN RN Addendum: 03/14/18 at 1752 by TALON TRAN RN ABGs continued to be critical; discussed with Dr. Grimaldo and family. Family understands that by patient receiving medications for pain/anxiety her CO2 will rise; they wish to proceed and want patient to be comfortable; but remain on bipap for tonight. ABG will be check in A.M. Palliative care meeting planned for tomorrow at 0900. Family very appreciative of care. Tearful. will remain at bedside tonight. Patient's mental status has slowly declined; still responsive, but extremely weak. Patient has adamantly refused turns throughout the day; and becomes unhappy when repositioned. Brigette TRAN RN
[2018-03-14 13:21] LABS: BASE EXCESS ABG -1 mmol/L (-3-3); HCO3 ABG 29 mmol/L (21-28); PO2 ABG 97 mmHg (75-108); SAT O2 ABG 96 % (92-99)
[2018-03-14 13:22] LABS: FIO2 ABG 70; PCO2 ABG 91 mmHg (35-46)
--- NOTE | 2018-03-14 14:26 | PDOC ---
PROGRESS NOTES Chief Complaint Chief Complaint Hyperkalemia Ovarian Cancer, METASTATIC End Stage Renal Disease, HD dependent Tachycardia small bowel obstruction by ct Ascites - s/p paracentesis (800cc) Abnormal KUB/CT - ?ileus/SBO PATIENT DESIRES TO BE A DNR History of Present Illness History of Present Illness Discussed tratment plan expectations with patient and at bedside. Discussed with critical child care giver. Vitals Vitals Vital Signs Date Time Temp Pulse Resp B/P (MAP) Pulse Ox O2 Delivery O2 Flow Rate FiO2 03/14/18 14:00 100 20 114/75 (88) 90 BiPAP/CPAP 03/14/18 12:00 98.2 98.2 03/14/18 04:45 15.0 Physical Exam Physical Exam CONSTITUTIONAL: She is alert. She is trying to vocalize some, but is minimal. HEENT: Her pupils equal and reactive. On bipap NECK: Supple. She has a Port-A-Cath in right chest without signs of any complications and left hemodialysis catheter without signs of any complications or tenderness. LUNGS: Decreased in the bases. HEART: S1, S2. ABDOMEN: Mildly - mod distended. She has decreased bowel sounds. She also has an NG tube in place. Her paracentesis site on the right mid lower quadrant is clean without signs of any complications. EXTREMITIES: Without clubbing, cyanosis. She has 1+ lower extremity edema. SKIN: Warm to touch without any obvious rash. NEUROLOGIC: She is alert Affect is flat. General: Alert, Oriented X3, Cooperative, No acute distress, moderate distress Heart: Regular rate, Normal S1, Normal S2, No murmurs, Gallops, Other (TACHY RATE 116) Lungs: Clear Abdomen: Normal bowel sounds, Soft, No tenderness, No hepatosplenomegaly, No masses Extremities: No clubbing, No cyanosis, Normal pulses, No tenderness/swelling, Other (3+ edema) Labs LABS Laboratory Tests Test 03/14/18 04:01 03/14/18 05:15 03/14/18 09:30 03/14/18 09:55 O2 Saturation 91 % (92-99) 96 % (92-99) Arterial Blood pH 7.20 (7.35-7.45) 7.18 (7.35-7.45) Arterial Blood pCO2 at Patient Temp 66 mmHg (35-46) 68 mmHg (35-46) Arterial Blood pO2 at Patient Temp 71 mmHg (75-108) 98 mmHg (75-108) Arterial Blood HCO3 25 mmol/L (21-28) 25 mmol/L (21-28) Arterial Blood Base Excess -3 mmol/L (-3-3) -4 mmol/L (-3-3) FiO2 100 80 White Blood Count 17.1 x10^3/uL (4.0-11.0) Red Blood Count 3.26 x10^6/uL (3.50-5.40) Hemoglobin 8.9 g/dL (12.0-15.5) Hematocrit 29.0 % (36.0-47.0) Mean Corpuscular Volume 89 fL (79-100) Mean Corpuscular Hemoglobin 28 pg (25-35) Mean Corpuscular Hemoglobin Concent 31 g/dL (31-37) Red Cell Distribution Width 19.7 % (11.5-14.5) Platelet Count 307 x10^3/uL (140-400) Neutrophils (%) (Auto) 87 % (31-73) Lymphocytes (%) (Auto) 7 % (24-48) Monocytes (%) (Auto) 6 % (0-9) Eosinophils (%) (Auto) 0 % (0-3) Basophils (%) (Auto) 0 % (0-3) Neutrophils # (Auto) 14.9 x10^3uL (1.8-7.7) Lymphocytes # (Auto) 1.1 x10^3/uL (1.0-4.8) Monocytes # (Auto) 1.0 x10^3/uL (0.0-1.1) Eosinophils # (Auto) 0.0 x10^3/uL (0.0-0.7) Basophils # (Auto) 0.0 x10^3/uL (0.0-0.2) Sodium Level 137 mmol/L (136-145) Potassium Level 4.9 mmol/L (3.5-5.1) Chloride Level 98 mmol/L (98-107) Carbon Dioxide Level 27 mmol/L (21-32) Anion Gap 12 (6-14) Blood Urea Nitrogen 68 mg/dL (7-20) Creatinine 3.2 mg/dL (0.6-1.0) Estimated GFR (Cockcroft-Gault) 14.9 Glucose Level 117 mg/dL (70-99) Calcium Level 8.4 mg/dL (8.5-10.1) Lactic Acid Level 0.5 mmol/L (0.4-2.0) Test 03/14/18 13:05 O2 Saturation 96 % (92-99) Arterial Blood pH 7.13 (7.35-7.45) Arterial Blood pCO2 at Patient Temp 91 mmHg (35-46) Arterial Blood pO2 at Patient Temp 97 mmHg (75-108) Arterial Blood HCO3 29 mmol/L (21-28) Arterial Blood Base Excess -1 mmol/L (-3-3) FiO2 70 Review of Systems Review of Systems unable to assess due to NIMV Assessment and Plan Assessmemt and Plan Problems Medical Problems: (1) Dialysis catheter clot or failure Status: Acute (2) Serum potassium elevated Status: Acute Comment Review of Relevant I have reviewed the following items arden (where applicable) has been applied. Labs Laboratory Tests Test 03/13/18 05:20 03/14/18 04:01 03/14/18 05:15 03/14/18 09:30 White Blood Count 15.4 x10^3/uL (4.0-11.0) 17.1 x10^3/uL (4.0-11.0) Red Blood Count 3.25 x10^6/uL (3.50-5.40) 3.26 x10^6/uL (3.50-5.40) Hemoglobin 9.0 g/dL (12.0-15.5) 8.9 g/dL (12.0-15.5) Hematocrit 27.9 % (36.0-47.0) 29.0 % (36.0-47.0) Mean Corpuscular Volume 86 fL (79-100) 89 fL (79-100) Mean Corpuscular Hemoglobin 28 pg (25-35) 28 pg (25-35) Mean Corpuscular Hemoglobin Concent 32 g/dL (31-37) 31 g/dL (31-37) Red Cell Distribution Width 19.4 % (11.5-14.5) 19.7 % (11.5-14.5) Platelet Count 316 x10^3/uL (140-400) 307 x10^3/uL (140-400) Neutrophils (%) (Auto) 87 % (31-73) 87 % (31-73) Lymphocytes (%) (Auto) 7 % (24-48) 7 % (24-48) Monocytes (%) (Auto) 6 % (0-9) 6 % (0-9) Eosinophils (%) (Auto) 0 % (0-3) 0 % (0-3) Basophils (%) (Auto) 0 % (0-3) 0 % (0-3) Neutrophils # (Auto) 13.3 x10^3uL (1.8-7.7) 14.9 x10^3uL (1.8-7.7) Lymphocytes # (Auto) 1.1 x10^3/uL (1.0-4.8) 1.1 x10^3/uL (1.0-4.8) Monocytes # (Auto) 0.9 x10^3/uL (0.0-1.1) 1.0 x10^3/uL (0.0-1.1) Eosinophils # (Auto) 0.0 x10^3/uL (0.0-0.7) 0.0 x10^3/uL (0.0-0.7) Basophils # (Auto) 0.0 x10^3/uL (0.0-0.2) 0.0 x10^3/uL (0.0-0.2) Sodium Level 137 mmol/L (136-145) 137 mmol/L (136-145) Potassium Level 5.4 mmol/L (3.5-5.1) 4.9 mmol/L (3.5-5.1) Chloride Level 97 mmol/L (98-107) 98 mmol/L (98-107) Carbon Dioxide Level 25 mmol/L (21-32) 27 mmol/L (21-32) Anion Gap 15 (6-14) 12 (6-14) Blood Urea Nitrogen 109 mg/dL (7-20) 68 mg/dL (7-20) Creatinine 4.0 mg/dL (0.6-1.0) 3.2 mg/dL (0.6-1.0) Estimated GFR (Cockcroft-Gault) 11.5 14.9 Glucose Level 106 mg/dL (70-99) 117 mg/dL (70-99) Calcium Level 8.5 mg/dL (8.5-10.1) 8.4 mg/dL (8.5-10.1) Phosphorus Level 4.0 mg/dL (2.6-4.7) Albumin 2.3 g/dL (3.4-5.0) O2 Saturation 91 % (92-99) Arterial Blood pH 7.20 (7.35-7.45) Arterial Blood pCO2 at Patient Temp 66 mmHg (35-46) Arterial Blood pO2 at Patient Temp 71 mmHg (75-108) Arterial Blood HCO3 25 mmol/L (21-28) Arterial Blood Base Excess -3 mmol/L (-3-3) FiO2 100 Lactic Acid Level 0.5 mmol/L (0.4-2.0) Test 03/14/18 09:55 03/14/18 13:05 O2 Saturation 96 % (92-99) 96 % (92-99) Arterial Blood pH 7.18 (7.35-7.45) 7.13 (7.35-7.45) Arterial Blood pCO2 at Patient Temp 68 mmHg (35-46) 91 mmHg (35-46) Arterial Blood pO2 at Patient Temp 98 mmHg (75-108) 97 mmHg (75-108) Arterial Blood HCO3 25 mmol/L (21-28) 29 mmol/L (21-28) Arterial Blood Base Excess -4 mmol/L (-3-3) -1 mmol/L (-3-3) FiO2 80 70 Laboratory Tests Test 03/14/18 04:01 03/14/18 05:15 03/14/18 09:30 03/14/18 09:55 O2 Saturation 91 % (92-99) 96 % (92-99) Arterial Blood pH 7.20 (7.35-7.45) 7.18 (7.35-7.45) Arterial Blood pCO2 at Patient Temp 66 mmHg (35-46) 68 mmHg (35-46) Arterial Blood pO2 at Patient Temp 71 mmHg (75-108) 98 mmHg (75-108) Arterial Blood HCO3 25 mmol/L (21-28) 25 mmol/L (21-28) Arterial Blood Base Excess -3 mmol/L (-3-3) -4 mmol/L (-3-3) FiO2 100 80 White Blood Count 17.1 x10^3/uL (4.0-11.0) Red Blood Count 3.26 x10^6/uL (3.50-5.40) Hemoglobin 8.9 g/dL (12.0-15.5) Hematocrit 29.0 % (36.0-47.0) Mean Corpuscular Volume 89 fL (79-100) Mean Corpuscular Hemoglobin 28 pg (25-35) Mean Corpuscular Hemoglobin Concent 31 g/dL (31-37) Red Cell Distribution Width 19.7 % (11.5-14.5) Platelet Count 307 x10^3/uL (140-400) Neutrophils (%) (Auto) 87 % (31-73) Lymphocytes (%) (Auto) 7 % (24-48) Monocytes (%) (Auto) 6 % (0-9) Eosinophils (%) (Auto) 0 % (0-3) Basophils (%) (Auto) 0 % (0-3) Neutrophils # (Auto) 14.9 x10^3uL (1.8-7.7) Lymphocytes # (Auto) 1.1 x10^3/uL (1.0-4.8) Monocytes # (Auto) 1.0 x10^3/uL (0.0-1.1) Eosinophils # (Auto) 0.0 x10^3/uL (0.0-0.7) Basophils # (Auto) 0.0 x10^3/uL (0.0-0.2) Sodium Level 137 mmol/L (136-145) Potassium Level 4.9 mmol/L (3.5-5.1) Chloride Level 98 mmol/L (98-107) Carbon Dioxide Level 27 mmol/L (21-32) Anion Gap 12 (6-14) Blood Urea Nitrogen 68 mg/dL (7-20) Creatinine 3.2 mg/dL (0.6-1.0) Estimated GFR (Cockcroft-Gault) 14.9 Glucose Level 117 mg/dL (70-99) Calcium Level 8.4 mg/dL (8.5-10.1) Lactic Acid Level 0.5 mmol/L (0.4-2.0) Test 03/14/18 13:05 O2 Saturation 96 % (92-99) Arterial Blood pH 7.13 (7.35-7.45) Arterial Blood pCO2 at Patient Temp 91 mmHg (35-46) Arterial Blood pO2 at Patient Temp 97 mmHg (75-108) Arterial Blood HCO3 29 mmol/L (21-28) Arterial Blood Base Excess -1 mmol/L (-3-3) FiO2 70 Microbiology 03/12/18 Blood Culture - Final, Complete 03/08/18 Anaerobic/Aerobic Culture - Final, Complete 03/08/18 Anaerobic Culture Result 1 (TIMOTHY) - Final, Complete 03/08/18 Aerobic Culture - Final, Complete 03/08/18 Aerobic Culture Result 1 (TIMOTHY) - Final, Complete 03/08/18 Gram Stain - Final, Complete 03/08/18 Gram Stain Result 1 (TIMOTHY) - Final, Complete 03/08/18 Gram Stain Result 2 (TIMOTHY) - Final, Complete Medications Current Medications Ondansetron HCl (Zofran) 4 mg PRN Q8HRS PRN IV NAUSEA/VOMITING Last administered on 03/06/18at 05:34; Start 03/05/18 at 22:00; Stop 03/06/18 at 21:59 ; Status DC Fentanyl Citrate (Fentanyl 2ml Vial) 50 mcg PRN Q1HR PRN IV PAIN Last administered on 03/06/18at 05:35; Start 03/05/18 at 22:00; Stop 03/06/18 at 21:59 ; Status DC Calcium Gluconate (Calcium Gluconate) 1,000 mg 1X ONCE IVP Last administered on 03/05/18at 23:23; Start 03/05/18 at 22:15; Stop 03/05/18 at 22:16; Status DC Sodium Bicarbonate (Sodium Bicarb Adult 8.4% Syr) 50 meq 1X ONCE IV Last administered on 03/05/18at 23:23; Start 03/05/18 at 22:15; Stop 03/05/18 at 22 :16; Status DC Sodium Polystyrene Sulfonate (Kayexalate) 30 gm 1X ONCE PO Last administered on 03/05/18at 23:23; Start 03/05/18 at 22:15; Stop 03/05/18 at 22:16; Status DC Ondansetron HCl (Zofran) 4 mg 1X ONCE IV Last administered on 03/05/18at 22:55 ; Start 03/05/18 at 22:45; Stop 03/05/18 at 22:55; Status DC Prochlorperazine Edisylate (Compazine) 10 mg PRN Q6HRS PRN IM NAUSEA/VOMITING; Start 03/06/18 at 06:15; Stop 03/06/18 at 12:32; Status DC Oxycodone HCl (Roxicodone) 10 mg PRN Q4HRS PRN PO MILD - MODERATE PAIN Last administered on 03/11/18at 00:24; Start 03/06/18 at 06:15 Oxycodone HCl (Roxicodone) 20 mg PRN Q4HRS PRN PO SEVERE PAIN; Start 03/06/18 at 06:15 Lidocaine/ Epinephrine (LIDOCAINE 1%-EPI 1:100,000 Multi-Dose) 20 ml STK-MED ONCE .ROUTE ; Start 03/06/18 at 09:11; Stop 03/06/18 at 09:12; Status DC Cefazolin Sodium 50 ml @ As Directed STK-MED ONCE IV ; Start 03/06/18 at 09:34; Stop 03/06/18 at 09:35; Status DC Midazolam HCl (Versed) 2 mg STK-MED ONCE .ROUTE ; Start 03/06/18 at 09:34; Stop 03/06/18 at 09:35; Status DC Fentanyl Citrate (Fentanyl 2ml Vial) 100 mcg STK-MED ONCE .ROUTE ; Start at 09:34; Stop 03/06/18 at 09:35; Status DC Heparin Sodium (Porcine) (Heparin Sodium) 10,000 unit STK-MED ONCE .ROUTE ; Start 03/06/18 at 09:44; Stop 03/06/18 at 09:46; Status DC Midazolam HCl (Versed) 2 mg 1X ONCE IV Last administered on 03/06/18at 10:11; Start 03/06/18 at 10:30; Stop 03/06/18 at 10:35; Status DC Fentanyl Citrate (Fentanyl 2ml Vial) 100 mcg 1X ONCE IV Last administered on at 10:11; Start 03/06/18 at 10:30; Stop 03/06/18 at 10:35; Status DC Lidocaine/ Epinephrine (LIDOCAINE 1%-EPI 1:100,000 Multi-Dose) 20 ml 1X ONCE IJ Last administered on 03/06/18at 10:09; Start 03/06/18 at 10:30; Stop 03/06/18 at 10:35; Status DC Cefazolin Sodium 50 ml @ 100 mls/hr 1X ONCE IV Last administered on 03/06/18at 10:11; Start 03/06/18 at 10:30; Stop 03/06/18 at 10:59; Status DC Heparin Sodium (Porcine) (Heparin Sodium) 4,200 unit 1X ONCE INT CAT Last administered on 03/06/18at 10:11; Start 03/06/18 at 10:30; Stop 03/06/18 at 10:35; Status DC Clonidine HCl (Catapres) 0.1 mg BID PO Last administered on 03/10/18 21:05; Start 03/06/18 at 12:00 Dexamethasone (Decadron) 16 mg DAILY PO Last administered on 03/07/18at 13:12; Start 03/06/18 at 12:00; Stop 03/08/18 at 09:00; Status DC Fentanyl (Duragesic 50mcg/ Hr Patch) 1 patch Q3DAYS TD ; Start 03/06/18 at 21:00 ; Stop 03/06/18 at 21:05; Status DC Lorazepam (Ativan) 0.5 mg PRN Q12HRS PRN PO ANXIETY / AGITATION; Start 03/06/18 at 11:30 Ondansetron HCl (Zofran Odt) 8 mg PRN Q8HRS PRN PO NAUSEA/VOMITING Last administered on 03/11/18at 01:41; Start 03/06/18 at 11:30 Calcium Acetate (Phoslo) 667 mg TIDWMEALS PO Last administered on 03/09/18at 12: 09; Start 03/06/18 at 12:00 Carvedilol (Coreg) 6.25 mg BIDWMEALS PO Last administered on 03/10/18 18:35; Start 03/06/18 at 12:00 Famotidine (Pepcid) 20 mg QHS PO Last administered on 03/06/18at 20:51; Start 03/06/18 at 21:00; Stop 03/07/18 at 13:15; Status DC Fluticasone Propionate (Flonase) 1 spray DAILY NS Last administered on at 12:16; Start 03/06/18 at 12:00 Guaifenesin/ Codeine Phosphate (Robitussin Ac) 10 ml PRN Q4HRS PRN PO COUGH; Start 03/06/18 at 11:45 Non-Formulary Medication (Melatonin ) 1 tab QHS PO ; Start 03/06/18 at 21:00; Status UNV Multivitamins (Thera M Plus) 1 tab DAILY PO Last administered on 03/09/18 08:20 ; Start 03/06/18 at 12:00 Polyethylene Glycol (miraLAX PACKET) 17 gm QHS PO Last administered on at 21:04; Start 03/06/18 at 21:00 Sennosides (Senna) 8.6 mg DAILY PO Last administered on 03/09/18 08:20; Start 03/06/18 at 12:00 Sertraline HCl (Zoloft) 150 mg DAILY PO Last administered on 03/09/18 08:20; Start 03/06/18 at 12:00 Prochlorperazine Edisylate (Compazine) 10 mg PRN Q6HRS PRN IV NAUSEA/VOMITING Last administered on 03/10/18at 20:58; Start 03/06/18 at 12:45 Darbepoetin Taran (Aranesp) 60 mcg WEEKLYHS SQ Last administered on 03/13/18 21: 03; Start 03/06/18 at 21:00 Magnesium Sulfate 50 ml @ 25 mls/hr PRN DAILY PRN IV for Mag < 1.7 on am labs; Start 03/06/18 at 13:45 Sodium Chloride 1,000 ml @ 1,000 mls/hr Q1H PRN IV hypotension; Start 03/06/18 at 12:30; Stop 03/06/18 at 18:29; Status DC Sodium Chloride 1,000 ml @ 400 mls/hr Q2H30M PRN IV PATENCY; Start 03/06/18 at 12:30; Stop 03/06/18 at 20:00; Status DC Info (PHARMACY MONITORING -- do not chart) 1 each PRN DAILY PRN MC SEE COMMENTS ; Start 03/06/18 at 15:00; Status UNV Info (PHARMACY MONITORING -- do not chart) 1 each PRN DAILY PRN MC SEE COMMENTS ; Start 03/06/18 at 15:00; Stop 03/07/18 at 16:17; Status DC Fentanyl (Duragesic 50mcg/ Hr Patch) 1 patch Q72H TD Last administered on at 20:32; Start 03/06/18 at 21:30 Sodium Chloride 1,000 ml @ 1,000 mls/hr Q1H PRN IV hypotension; Start 03/07/18 at 07:51; Stop 03/07/18 at 13:50; Status DC Albumin Human 200 ml @ 200 mls/hr 1X PRN PRN IV Hypotension; Start 03/07/18 at 08:00; Stop 03/07/18 at 13:59; Status DC Sodium Chloride 1,000 ml @ 400 mls/hr Q2H30M PRN IV PATENCY; Start 03/07/18 at 07:51; Stop 03/07/18 at 19:50; Status DC Info (PHARMACY MONITORING -- do not chart) 1 each PRN DAILY PRN MC SEE COMMENTS ; Start 03/07/18 at 08:00; Stop 03/09/18 at 18:51; Status DC Info (PHARMACY MONITORING -- do not chart) 1 each PRN DAILY PRN MC SEE COMMENTS ; Start 03/07/18 at 08:00; Status UNV Dexamethasone (Decadron) 12 mg DAILY PO ; Start 03/07/18 at 09:30; Stop 03/07/18 at 09:33; Status DC Dexamethasone (Decadron) 12 mg DAILY PO Last administered on 03/09/18at 08:20; Start 03/09/18 at 09:00; Stop 03/13/18 at 09:17; Status DC Pantoprazole Sodium (Protonix) 40 mg DAILYAC PO ; Start 03/08/18 at 07:30; Stop 03/08/18 at 07:30; Status DC Pantoprazole Sodium (PROTONIX VIAL for IV PUSH) 40 mg DAILYAC IVP Last administered on 03/09/18at 08:19; Start 03/08/18 at 07:30; Stop 03/09/18 at 12:24; Status DC Ferrous Sulfate (Iron Oral Solution) 300 mg DAILY PO Last administered on at 08:20; Start 03/08/18 at 10:30 Albumin Human 100 ml @ 100 mls/hr Q6HRS IV Last administered on 03/09/18at 17:28 ; Start 03/08/18 at 12:00; Stop 03/09/18 at 18:59; Status DC Sodium Chloride 1,000 ml @ 1,000 mls/hr Q1H PRN IV hypotension; Start 03/08/18 at 15:00; Stop 03/08/18 at 21:21; Status DC Sodium Chloride (Normal Saline Flush) 10 ml 1X PRN PRN IV AP catheter pack; Start 03/08/18 at 15:00; Stop 03/09/18 at 14:59; Status DC Sodium Chloride (Normal Saline Flush) 10 ml 1X PRN PRN IV QUALITY CONSULTANT catheter pack; Start 03/08/18 at 15:00; Stop 03/09/18 at 14:59; Status DC Info (PHARMACY MONITORING -- do not chart) 1 each PRN DAILY PRN MC SEE COMMENTS ; Start 03/08/18 at 21:15; Status Cancel Info (PHARMACY MONITORING -- do not chart) 1 each PRN DAILY PRN MC SEE COMMENTS ; Start 03/08/18 at 21:15 Pantoprazole Sodium (Protonix) 40 mg DAILYAC PO Last administered on 03/10/18at 08:20; Start 03/09/18 at 16:30; Stop 03/12/18 at 10:38; Status DC Sodium Chloride 1,000 ml @ 1,000 mls/hr Q1H PRN IV hypotension; Start 03/10/18 at 08:30; Stop 03/10/18 at 14:29; Status DC Sodium Chloride 1,000 ml @ 400 mls/hr Q2H30M PRN IV PATENCY; Start 03/10/18 at 08:30; Stop 03/10/18 at 20:29; Status DC Info (PHARMACY MONITORING -- do not chart) 1 each PRN DAILY PRN MC SEE COMMENTS ; Start 03/10/18 at 10:15; Status UNV Info (PHARMACY MONITORING -- do not chart) 1 each PRN DAILY PRN MC SEE COMMENTS ; Start 03/10/18 at 10:15; Status UNV Alteplase, Recombinant (Cathflo) 2 mg 1X ONCE INT CAT Last administered on 03/10at 14:04; Start 03/10/18 at 11:45; Stop 03/10/18 at 11:46; Status DC Amino Acids/ Glycerin/ Electrolytes 1,000 ml @ 80 mls/hr [id number] IV Last administered on 03/14/18at 13:58; Start 03/10/18 at 20:00 Alteplase, Recombinant (Cathflo) 2 mg 1X ONCE INT CAT Last administered on 03/10at 21:05; Start 03/10/18 at 20:00; Stop 03/10/18 at 20:16; Status DC Metoprolol Tartrate (Lopressor Vial) 5 mg 1X ONCE IVP Last administered on 03/11at 12:01; Start 03/11/18 at 12:00; Stop 03/11/18 at 12:01; Status DC Hydromorphone HCl (Dilaudid) 1 mg PRN Q4HRS PRN IV PAIN Last administered on 03/14/18at 11:00; Start 03/11/18 at 11:45 Sodium Chloride 500 ml @ 500 mls/hr 1X ONCE IV Last administered on 03/11/18at 12:02; Start 03/11/18 at 11:45; Stop 03/11/18 at 12:45; Status DC Metoprolol Tartrate (Lopressor Vial) 5 mg Q6HRS IVP ; Start 03/11/18 at 18:00; Stop 03/11/18 at 18:00; Status DC Alteplase, Recombinant (Cathflo) 2 mg 1X ONCE INT CAT ; Start 03/11/18 at 18:00 ; Stop 03/11/18 at 18:01; Status DC Metoprolol Tartrate (Lopressor Vial) 5 mg Q6HRS PRN IVP TACHYCARDIA Last administered on 03/14/18at 05:28; Start 03/11/18 at 18:00 Heparin Sodium (Porcine) (Hep Lock Adult) 500 unit 1X ONCE IV Last administered on 03/11/18at 18:20; Start 03/11/18 at 18:00; Stop 03/11/18 at 18:01; Status DC Acetaminophen (Tylenol Supp) 650 mg PRN Q6HRS PRN PA MILD PAIN / TEMP Last administered on 03/12/18 09:27; Start 03/12/18 at 08:45 Throat Lozenges (Chloraseptic) 1 spray PRN Q2HR PRN PO SORE THROAT Last administered on 03/12/18 09:26; Start 03/12/18 at 08:45 Pantoprazole Sodium (PROTONIX VIAL for IV PUSH) 40 mg DAILYAC IVP Last administered on 03/14/18at 09:03; Start 03/13/18 at 07:30 Dexamethasone (Decadron) 8 mg DAILY PO ; Start 03/13/18 at 09:30 Ceftriaxone Sodium (Rocephin) 1 gm Q24H IVP ; Start 03/13/18 at 10:30; Stop at 10:34; Status DC Piperacillin Sod/ Tazobactam Sod 3.375 gm/Sodium Chloride 50 ml @ 100 mls/hr Q6HRS IV ; Start 03/13/18 at 12:00; Stop 03/13/18 at 12:00; Status DC Sodium Chloride 1,000 ml @ 1,000 mls/hr Q1H PRN IV hypotension; Start 03/13/18 at 10:05; Stop 03/13/18 at 16:04; Status DC Albumin Human 200 ml @ 200 mls/hr 1X PRN PRN IV Hypotension; Start 03/13/18 at 10:15; Stop 03/13/18 at 16:14; Status DC Info (PHARMACY MONITORING -- do not chart) 1 each PRN DAILY PRN MC SEE COMMENTS ; Start 03/13/18 at 10:15; Status UNV Info (PHARMACY MONITORING -- do not chart) 1 each PRN DAILY PRN MC SEE COMMENTS ; Start 03/13/18 at 10:15; Status UNV Metronidazole 100 ml @ 100 mls/hr Q8HRS IV ; Start 03/13/18 at 10:45; Stop at 10:45; Status DC Piperacillin Sod/ Tazobactam Sod 2.25 gm/Sodium Chloride 50 ml @ 100 mls/hr Q8HRS IV Last administered on 03/14/18at 14:18; Start 03/13/18 at 14:00 Metronidazole 100 ml @ 100 mls/hr Q8HRS IV Last administered on 03/14/18at 14:18 ; Start 03/13/18 at 11:00 Vancomycin HCl 1.25 gm/Sodium Chloride 250 ml @ 166.667 mls/hr 1X ONCE IV Last administered on 03/14/18at 09:02; Start 03/14/18 at 08:15; Stop 03/14/18 at 09: 44; Status DC Sodium Bicarbonate (Sodium Bicarb Adult 8.4% Syr) 100 meq 1X ONCE IV Last administered on 03/14/18at 11:00; Start 03/14/18 at 10:45; Stop 03/14/18 at 10:46; Status DC Heparin Sodium (Porcine) (Heparin Sodium) 5,000 unit BID SQ ; Start 03/14/18 at 12:00 Active Scripts Active Reported Zoloft (Sertraline Hcl) 100 Mg Tablet 150 Mg PO DAILY Senna Lax (Sennosides) 8.6 Mg Tablet 8.6 Mg PO DAILY Proair Hfa (Albuterol Sulfate) 8.5 Gm Hfa.aer.ad 2 Puff INH PRN Q6HRS PRN Miralax (Polyethylene Glycol 3350) 17 Gm Powd.pack 1 Pkt PO HS Oxycodone Hcl 5 Mg Capsule 20 Mg PO PRN Q4HRS PRN Oxycodone Hcl 5 Mg Capsule 10 Mg PO PRN Q4HRS PRN Ondansetron Odt (Ondansetron) 4 Mg Tab.rapdis 8 Mg PO PRN Q8HRS PRN One-Daily Multi-Vitamin (Multivitamin) 1 Each Tablet 1 Each PO HS Melatonin 3 Mg Tablet 1 Tab PO QHS Ativan (Lorazepam) 0.5 Mg Tablet 0.5 Mg PO PRN Q12HRS PRN Guaifenesin-Codeine Syrup (Guaifenesin/Codeine Phosphate) 118 Ml Liquid 10 Ml PO PRN Q4HRS PRN Flonase Allergy Relief (Fluticasone Propionate) 9.9 Ml Vancleave.susp 1 Sprays NS DAILY FENTANYL 50mcg/hr (Fentanyl) 1 Each Patch.td72 1 Patch TP Q3DAYS Famotidine 40 Mg Tablet 20 Mg PO HS Dexamethasone 4 Mg Tablet 4 Tab PO DAILY Clonidine Hcl 0.1 Mg Tablet 0.1 Mg PO BID Carvedilol 25 Mg Tablet 6.25 Mg PO BIDWMEALS Calcium Acetate 667 Mg Tablet 667 Mg PO TIDWMEALS Vitals/I & O Vital Sign - Last 24 Hours 03/13/18 03/13/18 03/13/18 03/13/18 14:56 19:20 20:20 23:11 Temp 97.9 97.9 97.9 97.9 Pulse 123 109 Resp 19 18 20 B/P (MAP) 144/97 (113) 134/88 (103) Pulse Ox 98 O2 Delivery Nasal Cannula Nasal Cannula Nasal Cannula Nasal Cannula O2 Flow Rate 3.0 3.0 3.0 03/13/18 03/14/18 03/14/18 03/14/18 23:14 03:09 04:04 04:12 Temp 97.7 98.2 97.7 98.2 Pulse 105 115 Resp 18 18 20 B/P (MAP) 134/81 (98) 144/95 (111) Pulse Ox 98 93 90 O2 Delivery Room Air Nasal Cannula NonRebreather Mask Nasal Cannula O2 Flow Rate 3.0 15.0 03/14/18 03/14/18 03/14/18 03/14/18 04:30 04:40 04:45 04:45 Temp 98.7 98.7 Pulse 120 122 Resp 30 30 B/P (MAP) 107/68 (81) 116/76 (89) Pulse Ox 85 87 95 90 O2 Delivery NonRebreather Mask BiPAP/CPAP BiPAP/CPAP O2 Flow Rate 15.0 15.0 03/14/18 03/14/18 03/14/18 03/14/18 04:45 05:00 05:15 05:20 Pulse 122 120 Resp 28 28 B/P (MAP) 118/79 (92) 110/72 (85) Pulse Ox 98 96 93 O2 Delivery Bi-pap BiPAP/CPAP BiPAP/CPAP BiPAP/CPAP 03/14/18 03/14/18 03/14/18 03/14/18 05:28 05:30 06:00 06:30 Pulse 122 122 104 109 Resp 26 26 26 B/P (MAP) 102/68 103/68 (80) 117/74 (88) 100/64 (76) Pulse Ox 97 98 95 O2 Delivery BiPAP/CPAP BiPAP/CPAP BiPAP/CPAP 03/14/18 03/14/18 03/14/18 03/14/18 08:00 08:00 09:00 09:56 Temp 98.2 98.2 Pulse 105 106 Resp 22 20 B/P (MAP) 92/64 (73) 105/64 (78) Pulse Ox 96 95 97 O2 Delivery BiPAP/CPAP Bi-pap BiPAP/CPAP BiPAP/CPAP 03/14/18 03/14/18 03/14/18 03/14/18 10:00 11:00 11:00 11:30 Pulse 105 100 Resp 20 20 20 20 B/P (MAP) 114/77 (89) 109/70 (83) Pulse Ox 97 95 O2 Delivery BiPAP/CPAP BiPAP/CPAP BiPAP/CPAP BiPAP/CPAP 03/14/18 03/14/18 03/14/18 03/14/18 12:00 13:00 13:00 13:06 Temp 98.2 98.2 Pulse 108 100 Resp 20 20 B/P (MAP) 114/70 (85) 111/75 (87) Pulse Ox 95 95 98 O2 Delivery BiPAP/CPAP Bi-pap BiPAP/CPAP BiPAP/CPAP 03/14/18 14:00 Pulse 100 Resp 20 B/P (MAP) 114/75 (88) Pulse Ox 90 O2 Delivery BiPAP/CPAP Intake and Output 03/13/18 03/13/18 03/14/18 15:01 23:01 07:01 Intake Total 100 ml 100 ml 550 ml Output Total 301 ml Balance 100 ml 100 ml 249 ml Nutrition Consultation Dietary Evaluation: Recommendations by RD: PPN/TPN Comments: continue PPN at this time Expected Outcomes/Goals: diet advancement/ tolerance Malnutrition Findings: Food and Nutrition Intake (Mod: <75% est energy req 7days Weight Status: Appropriate SYLVIA DORAN MD Mar 14, 2018 14:26
[2018-03-14 16:28] LABS: BASE EXCESS ABG -4 mmol/L (-3-3); HCO3 ABG 27 mmol/L (21-28); PO2 ABG 70 mmHg (75-108); SAT O2 ABG 90 % (92-99)
[2018-03-14 16:32] LABS: FIO2 ABG 65; PCO2 ABG 84 mmHg (35-46)
--- NOTE | 2018-03-14 16:51 | PDOC2 ---
PALLIATIVE CARE Palliative Care Note Palliative Care Plan family meeting tomorrow at 9am. Patient now DNR/DNI ABG's reviewed. PCO2 80's. BiPap tonight. If no improvement will consider comfort care. ANITA YI Mar 14, 2018 16:51
[2018-03-14] MEDS: POLYETHYLENE GLYCOL 3350 17 GM PACKET. PO SCH (21:00)
[2018-03-15] VITALS (24 sets, daily range): BP systolic 84–124; BP diastolic 55–78
[2018-03-15] MEDS: HYDROmorphone 2 MG/ML VIAL IV PRN ×5 (02:05→22:05)
[2018-03-15] MEDS: AMINO AC 3%/ELECTROLYTE/GLYCER 1,000 ML IV SCH ×2 (02:05→14:23)
[2018-03-15 04:42] LABS: BASO % 0 % (0-3); EOS % 0 % (0-3); HEMATOCRIT 26.1 % (36.0-47.0); HEMOGLOBIN 8.3 g/dL (12.0-15.5); LYMPH # 0.7 x10^3/uL (1.0-4.8); LYMPH % 3 % (24-48); MEAN CORPUSCULAR HEMOGLOBIN 29 pg (25-35); MEAN CORPUSCULAR HGB CONC 32 g/dL (31-37); MEAN CORPUSCULAR VOLUME 89 fL (79-100); MONO # 1.2 x10^3/uL (0.0-1.1); MONO % 6 % (0-9); NEUT # 18.7 x10^3uL (1.8-7.7); NEUT % 91 % (31-73); PLATELET COUNT 302 x10^3/uL (140-400); RED BLOOD COUNT 2.91 x10^6/uL (3.50-5.40); RED CELL DISTRIBUTION WIDTH 19.7 % (11.5-14.5); WHITE BLOOD COUNT 20.6 x10^3/uL (4.0-11.0)
[2018-03-15] MEDS: PIPERACILLIN/TAZOBACTAM 2.25 GM in IV NORMAL SALINE 50ML 50 ML IV SCH ×3 (06:06→21:15)
[2018-03-15 06:30] LABS: CALCIUM 8.3 mg/dL (8.5-10.1); CREATININE 3.9 mg/dL (0.6-1.0); GFR 11.9
[2018-03-15 06:36] LABS: POTASSIUM 5.5 mmol/L (3.5-5.1)
[2018-03-15] MEDS: PROCHLORPERAZINE 10 MG/2 ML VIAL. IV PRN (07:03)
--- NOTE | 2018-03-15 07:09 | PDOC ---
Infectious Disease Note Subjective Subjective Events noted On Bipap Some nausea ROS ROS difficult to obtain - denies pain and feeling cold Vital Sign Vital Signs Vital Signs Date Time Temp Pulse Resp B/P (MAP) Pulse Ox O2 Delivery O2 Flow Rate FiO2 03/15/18 06:00 105 24 106/69 (81) 98 BiPAP/CPAP 03/15/18 04:00 97.7 97.7 Physical Exam PHYSICAL EXAM CONSTITUTIONAL: She is alert. Appears comfortable HEENT: Her pupils equal and reactive. On bipap NECK: Supple. She has a Port-A-Cath in right chest without signs of any complications and left hemodialysis catheter without signs of any complications or tenderness. LUNGS: Decreased in the bases. HEART: S1, S2. ABDOMEN: Mildly - mod distended. She has decreased bowel sounds. She also has an NG tube in place. Her paracentesis site on the right mid lower quadrant is clean without signs of any complications. EXTREMITIES: Without clubbing, cyanosis. She has 1+ lower extremity edema. SKIN: Warm to touch without any obvious rash. NEUROLOGIC: She is alert Affect is flat. Labs Lab Laboratory Tests Test 03/14/18 09:30 03/14/18 09:55 03/14/18 13:05 03/14/18 16:00 Lactic Acid Level 0.5 mmol/L (0.4-2.0) O2 Saturation 96 % (92-99) 96 % (92-99) 90 % (92-99) Arterial Blood pH 7.18 (7.35-7.45) 7.13 (7.35-7.45) 7.12 (7.35-7.45) Arterial Blood pCO2 at Patient Temp 68 mmHg (35-46) 91 mmHg (35-46) 84 mmHg (35-46) Arterial Blood pO2 at Patient Temp 98 mmHg (75-108) 97 mmHg (75-108) 70 mmHg (75-108) Arterial Blood HCO3 25 mmol/L (21-28) 29 mmol/L (21-28) 27 mmol/L (21-28) Arterial Blood Base Excess -4 mmol/L (-3-3) -1 mmol/L (-3-3) -4 mmol/L (-3-3) FiO2 80 70 65 Test 03/15/18 03:55 White Blood Count 20.6 x10^3/uL (4.0-11.0) Red Blood Count 2.91 x10^6/uL (3.50-5.40) Hemoglobin 8.3 g/dL (12.0-15.5) Hematocrit 26.1 % (36.0-47.0) Mean Corpuscular Volume 89 fL (79-100) Mean Corpuscular Hemoglobin 29 pg (25-35) Mean Corpuscular Hemoglobin Concent 32 g/dL (31-37) Red Cell Distribution Width 19.7 % (11.5-14.5) Platelet Count 302 x10^3/uL (140-400) Neutrophils (%) (Auto) 91 % (31-73) Lymphocytes (%) (Auto) 3 % (24-48) Monocytes (%) (Auto) 6 % (0-9) Eosinophils (%) (Auto) 0 % (0-3) Basophils (%) (Auto) 0 % (0-3) Neutrophils # (Auto) 18.7 x10^3uL (1.8-7.7) Lymphocytes # (Auto) 0.7 x10^3/uL (1.0-4.8) Monocytes # (Auto) 1.2 x10^3/uL (0.0-1.1) Eosinophils # (Auto) 0.0 x10^3/uL (0.0-0.7) Basophils # (Auto) 0.0 x10^3/uL (0.0-0.2) Sodium Level 136 mmol/L (136-145) Potassium Level 5.5 mmol/L (3.5-5.1) Chloride Level 97 mmol/L (98-107) Carbon Dioxide Level 29 mmol/L (21-32) Anion Gap 10 (6-14) Blood Urea Nitrogen 89 mg/dL (7-20) Creatinine 3.9 mg/dL (0.6-1.0) Estimated GFR (Cockcroft-Gault) 11.9 Glucose Level 115 mg/dL (70-99) Calcium Level 8.3 mg/dL (8.5-10.1) Micro Microbiology 03/12/18 Blood Culture - Final, Complete 03/08/18 Anaerobic/Aerobic Culture - Final, Complete 03/08/18 Anaerobic Culture Result 1 (TIMOTHY) - Final, Complete 03/08/18 Aerobic Culture - Final, Complete 03/08/18 Aerobic Culture Result 1 (TIMOTHY) - Final, Complete 03/08/18 Gram Stain - Final, Complete 03/08/18 Gram Stain Result 1 (TIMOTHY) - Final, Complete 03/08/18 Gram Stain Result 2 (TIMOTHY) - Final, Complete Objective Assessment Acute Resp Failure now on Bipap. Pleurx in place Leukocytosis - on Steroids Peritonitis - Bacteroides Mar 08 GNR sepsis - 03/12 Tiny GNR - likely anaerobes. larger rods also -ID still pending. Repeat 03/14 neg at one day Metastatic ovarian cancer, ascites s/p paracentesis - Bacteroides fragilis ESRD on HD Ileus/partial SBO LE dopplers neg 03/14 Plan Plan of Care Cont Zosyn/ Flagyl added 03/13/18 F/u Repeat cults in am Dosed Vanc times one 03/14 May need port and HD cath removed F/u labs Critically ill D/w nursing D/w Await Palliative KATIE Dalton MD Mar 15, 2018 07:09
--- NOTE | 2018-03-15 07:57 | EKG ---
[facility] [address] [place] [address] Test Date: 2018-03-14 Test Time: 03:58:44 Pat Name: MARIA LUISA HAYES Department: Room: 109 1 Gender: F Principal Military Analyst: KATHY : 1960 Requested By: MIRTHA BEATTY Order Number: [id number] Reading MD: Fahad Moran Measurements Intervals [place] Rate: 123 P: 43 MO: 108 QRS: 44 QRSD: 68 T: 30 QT: 294 QTc: 426 Interpretive Statements SINUS TACHYCARDIA LEFT ATRIAL ABNORMALITY Electronically Signed On 03-20-2018 9:22:27 THERMO PROCESSOR by Fahad Moran
[2018-03-15] MEDS: CALCIUM ACETATE 667 MG CAPSULE PO SCH ×3 (08:00→17:00)
[2018-03-15] MEDS: CARVEDILOL 6.25 MG TABLET. PO SCH ×2 (08:00→17:00)
[2018-03-15 08:03] LABS: BASE EXCESS ABG -2 mmol/L (-3-3); HCO3 ABG 27 mmol/L (21-28); PO2 ABG 129 mmHg (75-108); SAT O2 ABG 97 % (92-99)
[2018-03-15 08:34] LABS: FIO2 ABG 65; PCO2 ABG 74 mmHg (35-46)
[2018-03-15] MEDS: FLUTICASONE 50MCG/NASAL SPRAY 16GM BOTTLE. NS SCH (09:00)
[2018-03-15] MEDS: FERROUS SULFATE ORAL 300 MG/5 ML SOLUTION. PO SCH (09:00)
[2018-03-15] MEDS: DEXAMETHASONE 4 MG TABLET PO SCH (09:00)
[2018-03-15] MEDS: cloNIDine HCL 0.1 MG TABLET PO SCH ×2 (09:00→20:04)
[2018-03-15] MEDS: SERTRALINE 50 MG TABLET. PO SCH (09:00)
[2018-03-15] MEDS: SENNOSIDES 8.6 MG TABLET PO SCH (09:00)
[2018-03-15] MEDS: MULTIVITAMIN with MINERAL TABLET. PO SCH (09:00)
[2018-03-15] MEDS: PANTOPRAZOLE IV PUSH 40 MG VIAL. IVP SCH (10:49)
[2018-03-15] MEDS: HEPARIN for SUB-Q USE 5,000 UNIT/ML VIAL. SQ SCH ×2 (10:50→20:52)
--- NOTE | 2018-03-15 10:57 | PDOC ---
Renal-Progress Notes Subjective Notes Notes SOMNOLENT History of Present Illness Hx of present illness STABLE Vitals Vitals Vital Signs Date Time Temp Pulse Resp B/P (MAP) Pulse Ox O2 Delivery O2 Flow Rate FiO2 03/15/18 10:08 BiPAP/CPAP 03/15/18 09:20 92 03/15/18 06:00 105 24 106/69 (81) 03/15/18 04:00 97.7 97.7 Weight Weight [ ] I.O. Intake and Output Intake and Output 03/15/18 07:01 Intake Total 2287 ml Output Total 200 ml Balance 2087 ml Intake Oral 0 ml IV Total 2287 ml Output Urine Total 0 ml Gastric Drainage Total 200 ml Labs Labs Laboratory Tests Test 03/14/18 13:05 03/14/18 16:00 03/15/18 03:55 03/15/18 08:00 O2 Saturation 96 % (92-99) 90 % (92-99) 97 % (92-99) Arterial Blood pH 7.13 (7.35-7.45) 7.12 (7.35-7.45) 7.17 (7.35-7.45) Arterial Blood pCO2 at Patient Temp 91 mmHg (35-46) 84 mmHg (35-46) 74 mmHg (35-46) Arterial Blood pO2 at Patient Temp 97 mmHg (75-108) 70 mmHg (75-108) 129 mmHg (75-108) Arterial Blood HCO3 29 mmol/L (21-28) 27 mmol/L (21-28) 27 mmol/L (21-28) Arterial Blood Base Excess -1 mmol/L (-3-3) -4 mmol/L (-3-3) -2 mmol/L (-3-3) FiO2 70 65 65 White Blood Count 20.6 x10^3/uL (4.0-11.0) Red Blood Count 2.91 x10^6/uL (3.50-5.40) Hemoglobin 8.3 g/dL (12.0-15.5) Hematocrit 26.1 % (36.0-47.0) Mean Corpuscular Volume 89 fL (79-100) Mean Corpuscular Hemoglobin 29 pg (25-35) Mean Corpuscular Hemoglobin Concent 32 g/dL (31-37) Red Cell Distribution Width 19.7 % (11.5-14.5) Platelet Count 302 x10^3/uL (140-400) Neutrophils (%) (Auto) 91 % (31-73) Lymphocytes (%) (Auto) 3 % (24-48) Monocytes (%) (Auto) 6 % (0-9) Eosinophils (%) (Auto) 0 % (0-3) Basophils (%) (Auto) 0 % (0-3) Neutrophils # (Auto) 18.7 x10^3uL (1.8-7.7) Lymphocytes # (Auto) 0.7 x10^3/uL (1.0-4.8) Monocytes # (Auto) 1.2 x10^3/uL (0.0-1.1) Eosinophils # (Auto) 0.0 x10^3/uL (0.0-0.7) Basophils # (Auto) 0.0 x10^3/uL (0.0-0.2) Sodium Level 136 mmol/L (136-145) Potassium Level 5.5 mmol/L (3.5-5.1) Chloride Level 97 mmol/L (98-107) Carbon Dioxide Level 29 mmol/L (21-32) Anion Gap 10 (6-14) Blood Urea Nitrogen 89 mg/dL (7-20) Creatinine 3.9 mg/dL (0.6-1.0) Estimated GFR (Cockcroft-Gault) 11.9 Glucose Level 115 mg/dL (70-99) Calcium Level 8.3 mg/dL (8.5-10.1) Micro Micro Microbiology 03/14/18 Blood Culture - Preliminary, Resulted NO GROWTH AFTER 1 DAY 03/08/18 Anaerobic/Aerobic Culture - Final, Complete 03/08/18 Anaerobic Culture Result 1 (TIMOTHY) - Final, Complete 03/08/18 Aerobic Culture - Final, Complete 03/08/18 Aerobic Culture Result 1 (TIMOTHY) - Final, Complete 03/08/18 Gram Stain - Final, Complete 03/08/18 Gram Stain Result 1 (TIMOTHY) - Final, Complete 03/08/18 Gram Stain Result 2 (TIMOTHY) - Final, Complete Review of Systems Ears/Nose/Throat: Yes: no symptom reported Eyes: Yes: no symptom reported Pulmonary: Yes no symptom reported Cardiovascular: Yes no symptom reported Gastrointestional: Yes: abdominal pain Genitourinary: Yes: no symptom reported Musculoskeletal: Yes: no symptom reported Skin: Yes no symptom reported Psychiatric/Neurological: Yes: depressed Endocrine: Yes: no symptom reported Physical Exam General Appearance: no apparent distress Skin: warm Respiratory: decreased breath sounds Heart: S1S2 Abdomen: soft, bowel sounds present Extremities: pulses present Neurology: alert, oriented Assessment Assessment IMP ACIDEMIA ACUTE RESP FAILURE ESRD HTN FEVER LEUCOCYTOSIS ABD PAIN MET OVARIAN CANCER ANEMIA PLAN ANTIBIOTICS ARANESP PALLIATIVE/COMFORT CARE D/W DR MERCHANT AND HOPES TO PROCEED WITH COMFORT CARE SOON NO HD PLANNED CASIMIRO SMITH MD Mar 15, 2018 10:57
--- NOTE | 2018-03-15 11:01 | PDOC ---
Subjective: Subjective: Family present. Objective: Objective: Reviewed w/ RN - on BiPAP, NG output slowing, has pain, friend coming from [place] today. Vital Signs: Vital Signs Date Time Temp Pulse Resp B/P (MAP) Pulse Ox O2 Delivery O2 Flow Rate FiO2 03/15/18 10:08 BiPAP/CPAP 03/15/18 09:20 92 03/15/18 06:00 105 24 106/69 (81) 03/15/18 04:00 97.7 97.7 Labs: Laboratory Tests Test 03/14/18 13:05 03/14/18 16:00 03/15/18 03:55 03/15/18 08:00 O2 Saturation 96 % 90 % 97 % Arterial Blood pH 7.13 7.12 7.17 Arterial Blood pCO2 at Patient Temp 91 mmHg 84 mmHg 74 mmHg Arterial Blood pO2 at Patient Temp 97 mmHg 70 mmHg 129 mmHg Arterial Blood HCO3 29 mmol/L 27 mmol/L 27 mmol/L Arterial Blood Base Excess -1 mmol/L -4 mmol/L -2 mmol/L FiO2 70 65 65 White Blood Count 20.6 x10^3/uL Red Blood Count 2.91 x10^6/uL Hemoglobin 8.3 g/dL Hematocrit 26.1 % Mean Corpuscular Volume 89 fL Mean Corpuscular Hemoglobin 29 pg Mean Corpuscular Hemoglobin Concent 32 g/dL Red Cell Distribution Width 19.7 % Platelet Count 302 x10^3/uL Neutrophils (%) (Auto) 91 % Lymphocytes (%) (Auto) 3 % Monocytes (%) (Auto) 6 % Eosinophils (%) (Auto) 0 % Basophils (%) (Auto) 0 % Neutrophils # (Auto) 18.7 x10^3uL Lymphocytes # (Auto) 0.7 x10^3/uL Monocytes # (Auto) 1.2 x10^3/uL Eosinophils # (Auto) 0.0 x10^3/uL Basophils # (Auto) 0.0 x10^3/uL Sodium Level 136 mmol/L Potassium Level 5.5 mmol/L Chloride Level 97 mmol/L Carbon Dioxide Level 29 mmol/L Anion Gap 10 Blood Urea Nitrogen 89 mg/dL Creatinine 3.9 mg/dL Estimated GFR (Cockcroft-Gault) 11.9 Glucose Level 115 mg/dL Calcium Level 8.3 mg/dL PE: GEN: ill HEENT: NG bilious LUNGS: BiPAP HEART: tachycardic ABD: tender NEURO/PSYCH:awake and alert, nods and shakes head A/P: Resp failure, peritonitis, GNR sepsis Metastatic ovarian cancer, ESRD Ileus/SBO -- Will follow re: outcome of family discussion, etc. CAROL GOMEZ Mar 15, 2018 11:01
--- NOTE | 2018-03-15 11:22 | PDOC ---
PULMONARY PROGRESS NOTES Subjective remains lethargic/ on bipap ABG not improved Vitals Vital Signs Date Time Temp Pulse Resp B/P (MAP) Pulse Ox O2 Delivery O2 Flow Rate FiO2 03/15/18 11:00 103 30 98/60 (73) 91 BiPAP/CPAP 03/15/18 08:00 98.3 98.3 General: Lethargic Lungs: Other (decrease bs) Cardiovascular: S1 Abdomen: Soft Extremities: Other (1+edema) Labs Laboratory Tests Test 03/14/18 04:01 03/14/18 05:15 03/14/18 05:30 03/14/18 09:30 O2 Saturation 91 % (92-99) Arterial Blood pH 7.20 (7.35-7.45) Arterial Blood pCO2 at Patient Temp 66 mmHg (35-46) Arterial Blood pO2 at Patient Temp 71 mmHg (75-108) Arterial Blood HCO3 25 mmol/L (21-28) Arterial Blood Base Excess -3 mmol/L (-3-3) FiO2 100 White Blood Count 17.1 x10^3/uL (4.0-11.0) Red Blood Count 3.26 x10^6/uL (3.50-5.40) Hemoglobin 8.9 g/dL (12.0-15.5) Hematocrit 29.0 % (36.0-47.0) Mean Corpuscular Volume 89 fL (79-100) Mean Corpuscular Hemoglobin 28 pg (25-35) Mean Corpuscular Hemoglobin Concent 31 g/dL (31-37) Red Cell Distribution Width 19.7 % (11.5-14.5) Platelet Count 307 x10^3/uL (140-400) Neutrophils (%) (Auto) 87 % (31-73) Lymphocytes (%) (Auto) 7 % (24-48) Monocytes (%) (Auto) 6 % (0-9) Eosinophils (%) (Auto) 0 % (0-3) Basophils (%) (Auto) 0 % (0-3) Neutrophils # (Auto) 14.9 x10^3uL (1.8-7.7) Lymphocytes # (Auto) 1.1 x10^3/uL (1.0-4.8) Monocytes # (Auto) 1.0 x10^3/uL (0.0-1.1) Eosinophils # (Auto) 0.0 x10^3/uL (0.0-0.7) Basophils # (Auto) 0.0 x10^3/uL (0.0-0.2) Sodium Level 137 mmol/L (136-145) Potassium Level 4.9 mmol/L (3.5-5.1) Chloride Level 98 mmol/L (98-107) Carbon Dioxide Level 27 mmol/L (21-32) Anion Gap 12 (6-14) Blood Urea Nitrogen 68 mg/dL (7-20) Creatinine 3.2 mg/dL (0.6-1.0) Estimated GFR (Cockcroft-Gault) 14.9 Glucose Level 117 mg/dL (70-99) Calcium Level 8.4 mg/dL (8.5-10.1) Nasal Screen MRSA (PCR) Negative (Negative) Lactic Acid Level 0.5 mmol/L (0.4-2.0) Test 03/14/18 09:55 03/14/18 13:05 03/14/18 16:00 03/15/18 03:55 O2 Saturation 96 % (92-99) 96 % (92-99) 90 % (92-99) Arterial Blood pH 7.18 (7.35-7.45) 7.13 (7.35-7.45) 7.12 (7.35-7.45) Arterial Blood pCO2 at Patient Temp 68 mmHg (35-46) 91 mmHg (35-46) 84 mmHg (35-46) Arterial Blood pO2 at Patient Temp 98 mmHg (75-108) 97 mmHg (75-108) 70 mmHg (75-108) Arterial Blood HCO3 25 mmol/L (21-28) 29 mmol/L (21-28) 27 mmol/L (21-28) Arterial Blood Base Excess -4 mmol/L (-3-3) -1 mmol/L (-3-3) -4 mmol/L (-3-3) FiO2 80 70 65 White Blood Count 20.6 x10^3/uL (4.0-11.0) Red Blood Count 2.91 x10^6/uL (3.50-5.40) Hemoglobin 8.3 g/dL (12.0-15.5) Hematocrit 26.1 % (36.0-47.0) Mean Corpuscular Volume 89 fL (79-100) Mean Corpuscular Hemoglobin 29 pg (25-35) Mean Corpuscular Hemoglobin Concent 32 g/dL (31-37) Red Cell Distribution Width 19.7 % (11.5-14.5) Platelet Count 302 x10^3/uL (140-400) Neutrophils (%) (Auto) 91 % (31-73) Lymphocytes (%) (Auto) 3 % (24-48) Monocytes (%) (Auto) 6 % (0-9) Eosinophils (%) (Auto) 0 % (0-3) Basophils (%) (Auto) 0 % (0-3) Neutrophils # (Auto) 18.7 x10^3uL (1.8-7.7) Lymphocytes # (Auto) 0.7 x10^3/uL (1.0-4.8) Monocytes # (Auto) 1.2 x10^3/uL (0.0-1.1) Eosinophils # (Auto) 0.0 x10^3/uL (0.0-0.7) Basophils # (Auto) 0.0 x10^3/uL (0.0-0.2) Sodium Level 136 mmol/L (136-145) Potassium Level 5.5 mmol/L (3.5-5.1) Chloride Level 97 mmol/L (98-107) Carbon Dioxide Level 29 mmol/L (21-32) Anion Gap 10 (6-14) Blood Urea Nitrogen 89 mg/dL (7-20) Creatinine 3.9 mg/dL (0.6-1.0) Estimated GFR (Cockcroft-Gault) 11.9 Glucose Level 115 mg/dL (70-99) Calcium Level 8.3 mg/dL (8.5-10.1) Test 03/15/18 08:00 O2 Saturation 97 % (92-99) Arterial Blood pH 7.17 (7.35-7.45) Arterial Blood pCO2 at Patient Temp 74 mmHg (35-46) Arterial Blood pO2 at Patient Temp 129 mmHg (75-108) Arterial Blood HCO3 27 mmol/L (21-28) Arterial Blood Base Excess -2 mmol/L (-3-3) FiO2 65 Laboratory Tests Test 03/14/18 13:05 03/14/18 16:00 03/15/18 03:55 03/15/18 08:00 O2 Saturation 96 % (92-99) 90 % (92-99) 97 % (92-99) Arterial Blood pH 7.13 (7.35-7.45) 7.12 (7.35-7.45) 7.17 (7.35-7.45) Arterial Blood pCO2 at Patient Temp 91 mmHg (35-46) 84 mmHg (35-46) 74 mmHg (35-46) Arterial Blood pO2 at Patient Temp 97 mmHg (75-108) 70 mmHg (75-108) 129 mmHg (75-108) Arterial Blood HCO3 29 mmol/L (21-28) 27 mmol/L (21-28) 27 mmol/L (21-28) Arterial Blood Base Excess -1 mmol/L (-3-3) -4 mmol/L (-3-3) -2 mmol/L (-3-3) FiO2 70 65 65 White Blood Count 20.6 x10^3/uL (4.0-11.0) Red Blood Count 2.91 x10^6/uL (3.50-5.40) Hemoglobin 8.3 g/dL (12.0-15.5) Hematocrit 26.1 % (36.0-47.0) Mean Corpuscular Volume 89 fL (79-100) Mean Corpuscular Hemoglobin 29 pg (25-35) Mean Corpuscular Hemoglobin Concent 32 g/dL (31-37) Red Cell Distribution Width 19.7 % (11.5-14.5) Platelet Count 302 x10^3/uL (140-400) Neutrophils (%) (Auto) 91 % (31-73) Lymphocytes (%) (Auto) 3 % (24-48) Monocytes (%) (Auto) 6 % (0-9) Eosinophils (%) (Auto) 0 % (0-3) Basophils (%) (Auto) 0 % (0-3) Neutrophils # (Auto) 18.7 x10^3uL (1.8-7.7) Lymphocytes # (Auto) 0.7 x10^3/uL (1.0-4.8) Monocytes # (Auto) 1.2 x10^3/uL (0.0-1.1) Eosinophils # (Auto) 0.0 x10^3/uL (0.0-0.7) Basophils # (Auto) 0.0 x10^3/uL (0.0-0.2) Sodium Level 136 mmol/L (136-145) Potassium Level 5.5 mmol/L (3.5-5.1) Chloride Level 97 mmol/L (98-107) Carbon Dioxide Level 29 mmol/L (21-32) Anion Gap 10 (6-14) Blood Urea Nitrogen 89 mg/dL (7-20) Creatinine 3.9 mg/dL (0.6-1.0) Estimated GFR (Cockcroft-Gault) 11.9 Glucose Level 115 mg/dL (70-99) Calcium Level 8.3 mg/dL (8.5-10.1) Medications Active Scripts Medications Dose Route/Sig Max Daily Dose Days Date Category Zoloft (Sertraline Hcl) 100 Mg Tablet 150 Mg PO DAILY 03/06/18 Reported Senna Lax (Sennosides) 8.6 Mg Tablet 8.6 Mg PO DAILY 03/06/18 Reported Proair Hfa (Albuterol Sulfate) 8.5 Gm Hfa.aer.ad 2 Puff INH PRN Q6HRS PRN 03/06/18 Reported Miralax (Polyethylene Glycol 3350) 17 Gm Powd.pack 1 Pkt PO HS 03/06/18 Reported Oxycodone Hcl 5 Mg Capsule 20 Mg PO PRN Q4HRS PRN 03/06/18 Reported Oxycodone Hcl 5 Mg Capsule 10 Mg PO PRN Q4HRS PRN 03/06/18 Reported Ondansetron Odt (Ondansetron) 4 Mg Tab.rapdis 8 Mg PO PRN Q8HRS PRN 03/06/18 Reported One-Daily Multi-Vitamin (Multivitamin) 1 Each Tablet 1 Each PO HS 03/06/18 Reported Melatonin 3 Mg Tablet 1 Tab PO QHS 03/06/18 Reported Ativan (Lorazepam) 0.5 Mg Tablet 0.5 Mg PO PRN Q12HRS PRN 03/06/18 Reported Guaifenesin-Codeine Syrup (Guaifenesin/Codeine Phosphate) 118 Ml Liquid 10 Ml PO PRN Q4HRS PRN 03/06/18 Reported Flonase Allergy Relief (Fluticasone Propionate) 9.9 Ml [place].susp 1 Sprays NS DAILY 03/06/18 Reported FENTANYL 50mcg/hr (Fentanyl) 1 Each Patch.td72 1 Patch TP Q3DAYS 03/06/18 Reported Famotidine 40 Mg Tablet 20 Mg PO HS 03/06/18 Reported Dexamethasone 4 Mg Tablet 4 Tab PO DAILY 03/06/18 Reported Clonidine Hcl 0.1 Mg Tablet 0.1 Mg PO BID 03/06/18 Reported Carvedilol 25 Mg Tablet 6.25 Mg PO BIDWMEALS 03/06/18 Reported Calcium Acetate 667 Mg Tablet 667 Mg PO TIDWMEALS 03/06/18 Reported Impression . 1. Progressive hypercapnic and hypoxic respiratory failure secondary to multifactorial etiologies. The patient had progressive metastatic ovarian cancer with ongoing congestive heart failure and bilateral effusions, suspected extreme weakness contributing to hypercapnia as well. 2. End-stage renal disease, on hemodialysis. 3. Metastatic ovarian cancer. 4. History of subdural hematoma. 5. History of gastroesophageal reflux disease. 6. Non-ST elevation myocardial infarction. 7. Depression. 8. Hyperlipidemia. Plan . 1. Persistent hypercapnic RF despite multiple changes on BIPAP. discussed with the patient's and daughter. poor prognosis, I have recommended comfort care. she has failed BIPAP. She needs aggressive pain control. will let us know today. 2. In the meantime,continue BiPAP. 3. I do not see any further need for any diagnostic or invasive workup. 4. Follow ABGs prn 5. Continue antibiotics. 6. Venous Dopplers are negative. 7. Supportive care and follow recommendations of Renal and Oncology. 8. DVT prophylaxis. 9. Stress ulcer prophylaxis. 10. Discussed with RN and RT and discussed with Dr. Abad and her . cct 30 min RAEGAN MERCHANT MD Mar 15, 2018 11:22
--- NOTE | 2018-03-15 12:50 | PDOC ---
PROGRESS NOTES Chief Complaint Chief Complaint Acute hypoxemic respiratory failure failing Bipap, prognosis very grim, discussed with family at bedside. Ovarian Cancer, METASTATIC End Stage Renal Disease, HD dependent Tachycardia small bowel obstruction by ct Ascites - s/p paracentesis (800cc) Abnormal KUB/CT - ?ileus/SBO PATIENT DESIRES TO BE A DNR History of Present Illness History of Present Illness patient lying in bed in moderate dsitress, still on bipap, has voiced her wishes to be made comfortable, consultation with palliative care has been done and will meet with family this morning Vitals Vitals Vital Signs Date Time Temp Pulse Resp B/P (MAP) Pulse Ox O2 Delivery O2 Flow Rate FiO2 03/15/18 11:16 93 BiPAP/CPAP 03/15/18 11:00 103 30 98/60 (73) 03/15/18 08:00 98.3 98.3 Physical Exam Physical Exam CONSTITUTIONAL: She is alert. Appears comfortable HEENT: Her pupils equal and reactive. On bipap NECK: Supple. She has a Port-A-Cath in right chest without signs of any complications and left hemodialysis catheter without signs of any complications or tenderness. LUNGS: Decreased in the bases. HEART: S1, S2. ABDOMEN: Mildly - mod distended. She has decreased bowel sounds. She also has an NG tube in place. Her paracentesis site on the right mid lower quadrant is clean without signs of any complications. EXTREMITIES: Without clubbing, cyanosis. She has 1+ lower extremity edema. SKIN: Warm to touch without any obvious rash. NEUROLOGIC: She is alert Affect is flat. General: Alert, Oriented X3, Cooperative, No acute distress, moderate distress Heart: Regular rate, Normal S1, Normal S2, No murmurs, Gallops, Other (TACHY RATE 116) Lungs: Other (decrease bs) Abdomen: Normal bowel sounds, Soft, No tenderness, No hepatosplenomegaly, No masses Extremities: No clubbing, No cyanosis, Normal pulses, No tenderness/swelling, Other (3+ edema) Labs LABS Laboratory Tests Test 03/14/18 13:05 03/14/18 16:00 03/15/18 03:55 03/15/18 08:00 O2 Saturation 96 % (92-99) 90 % (92-99) 97 % (92-99) Arterial Blood pH 7.13 (7.35-7.45) 7.12 (7.35-7.45) 7.17 (7.35-7.45) Arterial Blood pCO2 at Patient Temp 91 mmHg (35-46) 84 mmHg (35-46) 74 mmHg (35-46) Arterial Blood pO2 at Patient Temp 97 mmHg (75-108) 70 mmHg (75-108) 129 mmHg (75-108) Arterial Blood HCO3 29 mmol/L (21-28) 27 mmol/L (21-28) 27 mmol/L (21-28) Arterial Blood Base Excess -1 mmol/L (-3-3) -4 mmol/L (-3-3) -2 mmol/L (-3-3) FiO2 70 65 65 White Blood Count 20.6 x10^3/uL (4.0-11.0) Red Blood Count 2.91 x10^6/uL (3.50-5.40) Hemoglobin 8.3 g/dL (12.0-15.5) Hematocrit 26.1 % (36.0-47.0) Mean Corpuscular Volume 89 fL (79-100) Mean Corpuscular Hemoglobin 29 pg (25-35) Mean Corpuscular Hemoglobin Concent 32 g/dL (31-37) Red Cell Distribution Width 19.7 % (11.5-14.5) Platelet Count 302 x10^3/uL (140-400) Neutrophils (%) (Auto) 91 % (31-73) Lymphocytes (%) (Auto) 3 % (24-48) Monocytes (%) (Auto) 6 % (0-9) Eosinophils (%) (Auto) 0 % (0-3) Basophils (%) (Auto) 0 % (0-3) Neutrophils # (Auto) 18.7 x10^3uL (1.8-7.7) Lymphocytes # (Auto) 0.7 x10^3/uL (1.0-4.8) Monocytes # (Auto) 1.2 x10^3/uL (0.0-1.1) Eosinophils # (Auto) 0.0 x10^3/uL (0.0-0.7) Basophils # (Auto) 0.0 x10^3/uL (0.0-0.2) Sodium Level 136 mmol/L (136-145) Potassium Level 5.5 mmol/L (3.5-5.1) Chloride Level 97 mmol/L (98-107) Carbon Dioxide Level 29 mmol/L (21-32) Anion Gap 10 (6-14) Blood Urea Nitrogen 89 mg/dL (7-20) Creatinine 3.9 mg/dL (0.6-1.0) Estimated GFR (Cockcroft-Gault) 11.9 Glucose Level 115 mg/dL (70-99) Calcium Level 8.3 mg/dL (8.5-10.1) Assessment and Plan Assessmemt and Plan Problems Medical Problems: (1) Dialysis catheter clot or failure Status: Acute (2) Serum potassium elevated Status: Acute Comment Review of Relevant I have reviewed the following items arden (where applicable) has been applied. Labs Laboratory Tests Test 03/14/18 04:01 03/14/18 05:15 03/14/18 05:30 03/14/18 09:30 O2 Saturation 91 % (92-99) Arterial Blood pH 7.20 (7.35-7.45) Arterial Blood pCO2 at Patient Temp 66 mmHg (35-46) Arterial Blood pO2 at Patient Temp 71 mmHg (75-108) Arterial Blood HCO3 25 mmol/L (21-28) Arterial Blood Base Excess -3 mmol/L (-3-3) FiO2 100 White Blood Count 17.1 x10^3/uL (4.0-11.0) Red Blood Count 3.26 x10^6/uL (3.50-5.40) Hemoglobin 8.9 g/dL (12.0-15.5) Hematocrit 29.0 % (36.0-47.0) Mean Corpuscular Volume 89 fL (79-100) Mean Corpuscular Hemoglobin 28 pg (25-35) Mean Corpuscular Hemoglobin Concent 31 g/dL (31-37) Red Cell Distribution Width 19.7 % (11.5-14.5) Platelet Count 307 x10^3/uL (140-400) Neutrophils (%) (Auto) 87 % (31-73) Lymphocytes (%) (Auto) 7 % (24-48) Monocytes (%) (Auto) 6 % (0-9) Eosinophils (%) (Auto) 0 % (0-3) Basophils (%) (Auto) 0 % (0-3) Neutrophils # (Auto) 14.9 x10^3uL (1.8-7.7) Lymphocytes # (Auto) 1.1 x10^3/uL (1.0-4.8) Monocytes # (Auto) 1.0 x10^3/uL (0.0-1.1) Eosinophils # (Auto) 0.0 x10^3/uL (0.0-0.7) Basophils # (Auto) 0.0 x10^3/uL (0.0-0.2) Sodium Level 137 mmol/L (136-145) Potassium Level 4.9 mmol/L (3.5-5.1) Chloride Level 98 mmol/L (98-107) Carbon Dioxide Level 27 mmol/L (21-32) Anion Gap 12 (6-14) Blood Urea Nitrogen 68 mg/dL (7-20) Creatinine 3.2 mg/dL (0.6-1.0) Estimated GFR (Cockcroft-Gault) 14.9 Glucose Level 117 mg/dL (70-99) Calcium Level 8.4 mg/dL (8.5-10.1) Nasal Screen MRSA (PCR) Negative (Negative) Lactic Acid Level 0.5 mmol/L (0.4-2.0) Test 03/14/18 09:55 03/14/18 13:05 03/14/18 16:00 03/15/18 03:55 O2 Saturation 96 % (92-99) 96 % (92-99) 90 % (92-99) Arterial Blood pH 7.18 (7.35-7.45) 7.13 (7.35-7.45) 7.12 (7.35-7.45) Arterial Blood pCO2 at Patient Temp 68 mmHg (35-46) 91 mmHg (35-46) 84 mmHg (35-46) Arterial Blood pO2 at Patient Temp 98 mmHg (75-108) 97 mmHg (75-108) 70 mmHg (75-108) Arterial Blood HCO3 25 mmol/L (21-28) 29 mmol/L (21-28) 27 mmol/L (21-28) Arterial Blood Base Excess -4 mmol/L (-3-3) -1 mmol/L (-3-3) -4 mmol/L (-3-3) FiO2 80 70 65 White Blood Count 20.6 x10^3/uL (4.0-11.0) Red Blood Count 2.91 x10^6/uL (3.50-5.40) Hemoglobin 8.3 g/dL (12.0-15.5) Hematocrit 26.1 % (36.0-47.0) Mean Corpuscular Volume 89 fL (79-100) Mean Corpuscular Hemoglobin 29 pg (25-35) Mean Corpuscular Hemoglobin Concent 32 g/dL (31-37) Red Cell Distribution Width 19.7 % (11.5-14.5) Platelet Count 302 x10^3/uL (140-400) Neutrophils (%) (Auto) 91 % (31-73) Lymphocytes (%) (Auto) 3 % (24-48) Monocytes (%) (Auto) 6 % (0-9) Eosinophils (%) (Auto) 0 % (0-3) Basophils (%) (Auto) 0 % (0-3) Neutrophils # (Auto) 18.7 x10^3uL (1.8-7.7) Lymphocytes # (Auto) 0.7 x10^3/uL (1.0-4.8) Monocytes # (Auto) 1.2 x10^3/uL (0.0-1.1) Eosinophils # (Auto) 0.0 x10^3/uL (0.0-0.7) Basophils # (Auto) 0.0 x10^3/uL (0.0-0.2) Sodium Level 136 mmol/L (136-145) Potassium Level 5.5 mmol/L (3.5-5.1) Chloride Level 97 mmol/L (98-107) Carbon Dioxide Level 29 mmol/L (21-32) Anion Gap 10 (6-14) Blood Urea Nitrogen 89 mg/dL (7-20) Creatinine 3.9 mg/dL (0.6-1.0) Estimated GFR (Cockcroft-Gault) 11.9 Glucose Level 115 mg/dL (70-99) Calcium Level 8.3 mg/dL (8.5-10.1) Test 03/15/18 08:00 O2 Saturation 97 % (92-99) Arterial Blood pH 7.17 (7.35-7.45) Arterial Blood pCO2 at Patient Temp 74 mmHg (35-46) Arterial Blood pO2 at Patient Temp 129 mmHg (75-108) Arterial Blood HCO3 27 mmol/L (21-28) Arterial Blood Base Excess -2 mmol/L (-3-3) FiO2 65 Laboratory Tests Test 03/14/18 13:05 03/14/18 16:00 03/15/18 03:55 03/15/18 08:00 O2 Saturation 96 % (92-99) 90 % (92-99) 97 % (92-99) Arterial Blood pH 7.13 (7.35-7.45) 7.12 (7.35-7.45) 7.17 (7.35-7.45) Arterial Blood pCO2 at Patient Temp 91 mmHg (35-46) 84 mmHg (35-46) 74 mmHg (35-46) Arterial Blood pO2 at Patient Temp 97 mmHg (75-108) 70 mmHg (75-108) 129 mmHg (75-108) Arterial Blood HCO3 29 mmol/L (21-28) 27 mmol/L (21-28) 27 mmol/L (21-28) Arterial Blood Base Excess -1 mmol/L (-3-3) -4 mmol/L (-3-3) -2 mmol/L (-3-3) FiO2 70 65 65 White Blood Count 20.6 x10^3/uL (4.0-11.0) Red Blood Count 2.91 x10^6/uL (3.50-5.40) Hemoglobin 8.3 g/dL (12.0-15.5) Hematocrit 26.1 % (36.0-47.0) Mean Corpuscular Volume 89 fL (79-100) Mean Corpuscular Hemoglobin 29 pg (25-35) Mean Corpuscular Hemoglobin Concent 32 g/dL (31-37) Red Cell Distribution Width 19.7 % (11.5-14.5) Platelet Count 302 x10^3/uL (140-400) Neutrophils (%) (Auto) 91 % (31-73) Lymphocytes (%) (Auto) 3 % (24-48) Monocytes (%) (Auto) 6 % (0-9) Eosinophils (%) (Auto) 0 % (0-3) Basophils (%) (Auto) 0 % (0-3) Neutrophils # (Auto) 18.7 x10^3uL (1.8-7.7) Lymphocytes # (Auto) 0.7 x10^3/uL (1.0-4.8) Monocytes # (Auto) 1.2 x10^3/uL (0.0-1.1) Eosinophils # (Auto) 0.0 x10^3/uL (0.0-0.7) Basophils # (Auto) 0.0 x10^3/uL (0.0-0.2) Sodium Level 136 mmol/L (136-145) Potassium Level 5.5 mmol/L (3.5-5.1) Chloride Level 97 mmol/L (98-107) Carbon Dioxide Level 29 mmol/L (21-32) Anion Gap 10 (6-14) Blood Urea Nitrogen 89 mg/dL (7-20) Creatinine 3.9 mg/dL (0.6-1.0) Estimated GFR (Cockcroft-Gault) 11.9 Glucose Level 115 mg/dL (70-99) Calcium Level 8.3 mg/dL (8.5-10.1) Microbiology 03/14/18 Blood Culture - Preliminary, Resulted NO GROWTH AFTER 1 DAY 03/08/18 Anaerobic/Aerobic Culture - Final, Complete 03/08/18 Anaerobic Culture Result 1 (TIMOTHY) - Final, Complete 03/08/18 Aerobic Culture - Final, Complete 03/08/18 Aerobic Culture Result 1 (TIMOTHY) - Final, Complete 03/08/18 Gram Stain - Final, Complete 03/08/18 Gram Stain Result 1 (TIMOTHY) - Final, Complete 03/08/18 Gram Stain Result 2 (TIMOTHY) - Final, Complete Medications Current Medications Ondansetron HCl (Zofran) 4 mg PRN Q8HRS PRN IV NAUSEA/VOMITING Last administered on 03/06/18at 05:34; Start 03/05/18 at 22:00; Stop 03/06/18 at 21:59 ; Status DC Fentanyl Citrate (Fentanyl 2ml Vial) 50 mcg PRN Q1HR PRN IV PAIN Last administered on 03/06/18at 05:35; Start 03/05/18 at 22:00; Stop 03/06/18 at 21:59 ; Status DC Calcium Gluconate (Calcium Gluconate) 1,000 mg 1X ONCE IVP Last administered on 03/05/18at 23:23; Start 03/05/18 at 22:15; Stop 03/05/18 at 22:16; Status DC Sodium Bicarbonate (Sodium Bicarb Adult 8.4% Syr) 50 meq 1X ONCE IV Last administered on 03/05/18at 23:23; Start 03/05/18 at 22:15; Stop 03/05/18 at 22 :16; Status DC Sodium Polystyrene Sulfonate (Kayexalate) 30 gm 1X ONCE PO Last administered on 03/05/18at 23:23; Start 03/05/18 at 22:15; Stop 03/05/18 at 22:16; Status DC Ondansetron HCl (Zofran) 4 mg 1X ONCE IV Last administered on 03/05/18at 22:55 ; Start 03/05/18 at 22:45; Stop 03/05/18 at 22:55; Status DC Prochlorperazine Edisylate (Compazine) 10 mg PRN Q6HRS PRN IM NAUSEA/VOMITING; Start 03/06/18 at 06:15; Stop 03/06/18 at 12:32; Status DC Oxycodone HCl (Roxicodone) 10 mg PRN Q4HRS PRN PO MILD - MODERATE PAIN Last administered on 03/11/18at 00:24; Start 03/06/18 at 06:15 Oxycodone HCl (Roxicodone) 20 mg PRN Q4HRS PRN PO SEVERE PAIN; Start 03/06/18 at 06:15 Lidocaine/ Epinephrine (LIDOCAINE 1%-EPI 1:100,000 Multi-Dose) 20 ml STK-MED ONCE .ROUTE ; Start 03/06/18 at 09:11; Stop 03/06/18 at 09:12; Status DC Cefazolin Sodium 50 ml @ As Directed STK-MED ONCE IV ; Start 03/06/18 at 09:34; Stop 03/06/18 at 09:35; Status DC Midazolam HCl (Versed) 2 mg STK-MED ONCE .ROUTE ; Start 03/06/18 at 09:34; Stop 03/06/18 at 09:35; Status DC Fentanyl Citrate (Fentanyl 2ml Vial) 100 mcg STK-MED ONCE .ROUTE ; Start at 09:34; Stop 03/06/18 at 09:35; Status DC Heparin Sodium (Porcine) (Heparin Sodium) 10,000 unit STK-MED ONCE .ROUTE ; Start 03/06/18 at 09:44; Stop 03/06/18 at 09:46; Status DC Midazolam HCl (Versed) 2 mg 1X ONCE IV Last administered on 03/06/18at 10:11; Start 03/06/18 at 10:30; Stop 03/06/18 at 10:35; Status DC Fentanyl Citrate (Fentanyl 2ml Vial) 100 mcg 1X ONCE IV Last administered on at 10:11; Start 03/06/18 at 10:30; Stop 03/06/18 at 10:35; Status DC Lidocaine/ Epinephrine (LIDOCAINE 1%-EPI 1:100,000 Multi-Dose) 20 ml 1X ONCE IJ Last administered on 03/06/18at 10:09; Start 03/06/18 at 10:30; Stop 03/06/18 at 10:35; Status DC Cefazolin Sodium 50 ml @ 100 mls/hr 1X ONCE IV Last administered on 03/06/18at 10:11; Start 03/06/18 at 10:30; Stop 03/06/18 at 10:59; Status DC Heparin Sodium (Porcine) (Heparin Sodium) 4,200 unit 1X ONCE INT CAT Last administered on 03/06/18at 10:11; Start 03/06/18 at 10:30; Stop 03/06/18 at 10:35; Status DC Clonidine HCl (Catapres) 0.1 mg BID PO Last administered on 03/10/18at 21:05; Start 03/06/18 at 12:00 Dexamethasone (Decadron) 16 mg DAILY PO Last administered on 03/07/18at 13:12; Start 03/06/18 at 12:00; Stop 03/08/18 at 09:00; Status DC Fentanyl (Duragesic 50mcg/ Hr Patch) 1 patch Q3DAYS TD ; Start 03/06/18 at 21:00 ; Stop 03/06/18 at 21:05; Status DC Lorazepam (Ativan) 0.5 mg PRN Q12HRS PRN PO ANXIETY / AGITATION; Start 03/06/18 at 11:30 Ondansetron HCl (Zofran Odt) 8 mg PRN Q8HRS PRN PO NAUSEA/VOMITING Last administered on 03/11/18at 01:41; Start 03/06/18 at 11:30 Calcium Acetate (Phoslo) 667 mg TIDWMEALS PO Last administered on 03/09/18 12: 09; Start 03/06/18 at 12:00 Carvedilol (Coreg) 6.25 mg BIDWMEALS PO Last administered on 03/10/18 18:35; Start 03/06/18 at 12:00 Famotidine (Pepcid) 20 mg QHS PO Last administered on 03/06/18 20:51; Start 03/06/18 at 21:00; Stop 03/07/18 at 13:15; Status DC Fluticasone Propionate (Flonase) 1 spray DAILY NS Last administered on 12:16; Start 03/06/18 at 12:00 Guaifenesin/ Codeine Phosphate (Robitussin Ac) 10 ml PRN Q4HRS PRN PO COUGH; Start 03/06/18 at 11:45 Non-Formulary Medication (Melatonin ) 1 tab QHS PO ; Start 03/06/18 at 21:00; Status UNV Multivitamins (Thera M Plus) 1 tab DAILY PO Last administered on 03/09/18 08:20 ; Start 03/06/18 at 12:00 Polyethylene Glycol (miraLAX PACKET) 17 gm QHS PO Last administered on 21:04; Start 03/06/18 at 21:00 Sennosides (Senna) 8.6 mg DAILY PO Last administered on 03/09/18 08:20; Start 03/06/18 at 12:00 Sertraline HCl (Zoloft) 150 mg DAILY PO Last administered on 03/09/18 08:20; Start 03/06/18 at 12:00 Prochlorperazine Edisylate (Compazine) 10 mg PRN Q6HRS PRN IV NAUSEA/VOMITING Last administered on 03/15/18 07:03; Start 03/06/18 at 12:45 Darbepoetin Taran (Aranesp) 60 mcg [id number] SQ Last administered on 03/13/18 21: 03; Start 03/06/18 at 21:00 Magnesium Sulfate 50 ml @ 25 mls/hr PRN DAILY PRN IV for Mag < 1.7 on am labs; Start 03/06/18 at 13:45 Sodium Chloride 1,000 ml @ 1,000 mls/hr Q1H PRN IV hypotension; Start 03/06/18 at 12:30; Stop 03/06/18 at 18:29; Status DC Sodium Chloride 1,000 ml @ 400 mls/hr Q2H30M PRN IV PATENCY; Start 03/06/18 at 12:30; Stop 03/06/18 at 20:00; Status DC Info (PHARMACY MONITORING -- do not chart) 1 each PRN DAILY PRN MC SEE COMMENTS ; Start 03/06/18 at 15:00; Status UNV Info (PHARMACY MONITORING -- do not chart) 1 each PRN DAILY PRN MC SEE COMMENTS ; Start 03/06/18 at 15:00; Stop 03/07/18 at 16:17; Status DC Fentanyl (Duragesic 50mcg/ Hr Patch) 1 patch Q72H TD Last administered on at 20:32; Start 03/06/18 at 21:30 Sodium Chloride 1,000 ml @ 1,000 mls/hr Q1H PRN IV hypotension; Start 03/07/18 at 07:51; Stop 03/07/18 at 13:50; Status DC Albumin Human 200 ml @ 200 mls/hr 1X PRN PRN IV Hypotension; Start 03/07/18 at 08:00; Stop 03/07/18 at 13:59; Status DC Sodium Chloride 1,000 ml @ 400 mls/hr Q2H30M PRN IV PATENCY; Start 03/07/18 at 07:51; Stop 03/07/18 at 19:50; Status DC Info (PHARMACY MONITORING -- do not chart) 1 each PRN DAILY PRN MC SEE COMMENTS ; Start 03/07/18 at 08:00; Stop 03/09/18 at 18:51; Status DC Info (PHARMACY MONITORING -- do not chart) 1 each PRN DAILY PRN MC SEE COMMENTS ; Start 03/07/18 at 08:00; Status UNV Dexamethasone (Decadron) 12 mg DAILY PO ; Start 03/07/18 at 09:30; Stop 03/07/18 at 09:33; Status DC Dexamethasone (Decadron) 12 mg DAILY PO Last administered on 03/09/18at 08:20; Start 03/09/18 at 09:00; Stop 03/13/18 at 09:17; Status DC Pantoprazole Sodium (Protonix) 40 mg DAILYAC PO ; Start 03/08/18 at 07:30; Stop 03/08/18 at 07:30; Status DC Pantoprazole Sodium (PROTONIX VIAL for IV PUSH) 40 mg DAILYAC IVP Last administered on 03/09/18at 08:19; Start 03/08/18 at 07:30; Stop 03/09/18 at 12:24; Status DC Ferrous Sulfate (Iron Oral Solution) 300 mg DAILY PO Last administered on at 08:20; Start 03/08/18 at 10:30 Albumin Human 100 ml @ 100 mls/hr Q6HRS IV Last administered on 03/09/18at 17:28 ; Start 03/08/18 at 12:00; Stop 03/09/18 at 18:59; Status DC Sodium Chloride 1,000 ml @ 1,000 mls/hr Q1H PRN IV hypotension; Start 03/08/18 at 15:00; Stop 03/08/18 at 21:21; Status DC Sodium Chloride (Normal Saline Flush) 10 ml 1X PRN PRN IV AP catheter pack; Start 03/08/18 at 15:00; Stop 03/09/18 at 14:59; Status DC Sodium Chloride (Normal Saline Flush) 10 ml 1X PRN PRN IV MULTIGRAPHER catheter pack; Start 03/08/18 at 15:00; Stop 03/09/18 at 14:59; Status DC Info (PHARMACY MONITORING -- do not chart) 1 each PRN DAILY PRN MC SEE COMMENTS ; Start 03/08/18 at 21:15; Status Cancel Info (PHARMACY MONITORING -- do not chart) 1 each PRN DAILY PRN MC SEE COMMENTS ; Start 03/08/18 at 21:15 Pantoprazole Sodium (Protonix) 40 mg DAILYAC PO Last administered on 03/10/18at 08:20; Start 03/09/18 at 16:30; Stop 03/12/18 at 10:38; Status DC Sodium Chloride 1,000 ml @ 1,000 mls/hr Q1H PRN IV hypotension; Start 03/10/18 at 08:30; Stop 03/10/18 at 14:29; Status DC Sodium Chloride 1,000 ml @ 400 mls/hr Q2H30M PRN IV PATENCY; Start 03/10/18 at 08:30; Stop 03/10/18 at 20:29; Status DC Info (PHARMACY MONITORING -- do not chart) 1 each PRN DAILY PRN MC SEE COMMENTS ; Start 03/10/18 at 10:15; Status UNV Info (PHARMACY MONITORING -- do not chart) 1 each PRN DAILY PRN MC SEE COMMENTS ; Start 03/10/18 at 10:15; Status UNV Alteplase, Recombinant (Cathflo) 2 mg 1X ONCE INT CAT Last administered on 03/10at 14:04; Start 03/10/18 at 11:45; Stop 03/10/18 at 11:46; Status DC Amino Acids/ Glycerin/ Electrolytes 1,000 ml @ 80 mls/hr [id number] IV Last administered on 03/15/18at 02:05; Start 03/10/18 at 20:00 Alteplase, Recombinant (Cathflo) 2 mg 1X ONCE INT CAT Last administered on 03/10at 21:05; Start 03/10/18 at 20:00; Stop 03/10/18 at 20:16; Status DC Metoprolol Tartrate (Lopressor Vial) 5 mg 1X ONCE IVP Last administered on 03/11at 12:01; Start 03/11/18 at 12:00; Stop 03/11/18 at 12:01; Status DC Hydromorphone HCl (Dilaudid) 1 mg PRN Q4HRS PRN IV PAIN Last administered on 12/22at 09:20; Start 03/11/18 at 11:45 Sodium Chloride 500 ml @ 500 mls/hr 1X ONCE IV Last administered on 03/11/18at 12:02; Start 03/11/18 at 11:45; Stop 03/11/18 at 12:45; Status DC Metoprolol Tartrate (Lopressor Vial) 5 mg Q6HRS IVP ; Start 03/11/18 at 18:00; Stop 03/11/18 at 18:00; Status DC Alteplase, Recombinant (Cathflo) 2 mg 1X ONCE INT CAT ; Start 03/11/18 at 18:00 ; Stop 03/11/18 at 18:01; Status DC Metoprolol Tartrate (Lopressor Vial) 5 mg Q6HRS PRN IVP TACHYCARDIA Last administered on 03/14/18at 05:28; Start 03/11/18 at 18:00 Heparin Sodium (Porcine) (Hep Lock Adult) 500 unit 1X ONCE IV Last administered on 03/11/18at 18:20; Start 03/11/18 at 18:00; Stop 03/11/18 at 18:01; Status DC Acetaminophen (Tylenol Supp) 650 mg PRN Q6HRS PRN [place] MILD PAIN / TEMP Last administered on 03/12/18at 09:27; Start 03/12/18 at 08:45 Throat Lozenges (Chloraseptic) 1 spray PRN Q2HR PRN PO SORE THROAT Last administered on 03/12/18at 09:26; Start 03/12/18 at 08:45 Pantoprazole Sodium (PROTONIX VIAL for IV PUSH) 40 mg DAILYAC IVP Last administered on 03/15/18at 10:49; Start 03/13/18 at 07:30 Dexamethasone (Decadron) 8 mg DAILY PO ; Start 03/13/18 at 09:30 Ceftriaxone Sodium (Rocephin) 1 gm Q24H IVP ; Start 03/13/18 at 10:30; Stop at 10:34; Status DC Piperacillin Sod/ Tazobactam Sod 3.375 gm/Sodium Chloride 50 ml @ 100 mls/hr Q6HRS IV ; Start 03/13/18 at 12:00; Stop 03/13/18 at 12:00; Status DC Sodium Chloride 1,000 ml @ 1,000 mls/hr Q1H PRN IV hypotension; Start 03/13/18 at 10:05; Stop 03/13/18 at 16:04; Status DC Albumin Human 200 ml @ 200 mls/hr 1X PRN PRN IV Hypotension; Start 03/13/18 at 10:15; Stop 03/13/18 at 16:14; Status DC Info (PHARMACY MONITORING -- do not chart) 1 each PRN DAILY PRN MC SEE COMMENTS ; Start 03/13/18 at 10:15; Status UNV Info (PHARMACY MONITORING -- do not chart) 1 each PRN DAILY PRN MC SEE COMMENTS ; Start 03/13/18 at 10:15; Status UNV Metronidazole 100 ml @ 100 mls/hr Q8HRS IV ; Start 03/13/18 at 10:45; Stop at 10:45; Status DC Piperacillin Sod/ Tazobactam Sod 2.25 gm/Sodium Chloride 50 ml @ 100 mls/hr Q8HRS IV Last administered on 03/15/18at 06:06; Start 03/13/18 at 14:00 Metronidazole 100 ml @ 100 mls/hr Q8HRS IV Last administered on 03/15/18at 06: 05; Start 03/13/18 at 11:00 Vancomycin HCl 1.25 gm/Sodium Chloride 250 ml @ 166.667 mls/hr 1X ONCE IV Last administered on 03/14/18at 09:02; Start 03/14/18 at 08:15; Stop 03/14/18 at 09: 44; Status DC Sodium Bicarbonate (Sodium Bicarb Adult 8.4% Syr) 100 meq 1X ONCE IV Last administered on 03/14/18at 11:00; Start 03/14/18 at 10:45; Stop 03/14/18 at 10:46; Status DC Heparin Sodium (Porcine) (Heparin Sodium) 5,000 unit BID SQ Last administered on 03/15/18at 10:50; Start 03/14/18 at 12:00 Lorazepam (Ativan) 0.5 mg PRN Q4HRS PRN IV ANXIETY / AGITATION; Start 03/14/18 at 17:00 Active Scripts Active Reported Zoloft (Sertraline Hcl) 100 Mg Tablet 150 Mg PO DAILY Senna Lax (Sennosides) 8.6 Mg Tablet 8.6 Mg PO DAILY Proair Hfa (Albuterol Sulfate) 8.5 Gm Hfa.aer.ad 2 Puff INH PRN Q6HRS PRN Miralax (Polyethylene Glycol 3350) 17 Gm Powd.pack 1 Pkt PO HS Oxycodone Hcl 5 Mg Capsule 20 Mg PO PRN Q4HRS PRN Oxycodone Hcl 5 Mg Capsule 10 Mg PO PRN Q4HRS PRN Ondansetron Odt (Ondansetron) 4 Mg Tab.rapdis 8 Mg PO PRN Q8HRS PRN One-Daily Multi-Vitamin (Multivitamin) 1 Each Tablet 1 Each PO HS Melatonin 3 Mg Tablet 1 Tab PO QHS Ativan (Lorazepam) 0.5 Mg Tablet 0.5 Mg PO PRN Q12HRS PRN Guaifenesin-Codeine Syrup (Guaifenesin/Codeine Phosphate) 118 Ml Liquid 10 Ml PO PRN Q4HRS PRN Flonase Allergy Relief (Fluticasone Propionate) 9.9 Ml [place].susp 1 Sprays NS DAILY FENTANYL 50mcg/hr (Fentanyl) 1 Each Patch.td72 1 Patch TP Q3DAYS Famotidine 40 Mg Tablet 20 Mg PO HS Dexamethasone 4 Mg Tablet 4 Tab PO DAILY Clonidine Hcl 0.1 Mg Tablet 0.1 Mg PO BID Carvedilol 25 Mg Tablet 6.25 Mg PO BIDWMEALS Calcium Acetate 667 Mg Tablet 667 Mg PO TIDWMEALS Vitals/I & O Vital Sign - Last 24 Hours 03/14/18 03/14/18 03/14/18 03/14/18 13:00 13:00 13:06 14:00 Pulse 100 100 Resp 20 20 B/P (MAP) 111/75 (87) 114/75 (88) Pulse Ox 95 98 90 O2 Delivery Bi-pap BiPAP/CPAP BiPAP/CPAP BiPAP/CPAP 03/14/18 03/14/18 03/14/18 03/14/18 15:00 16:00 16:00 16:03 Temp 97.9 97.9 Pulse 103 111 Resp 20 28 B/P (MAP) 111/75 (87) 112/75 (87) Pulse Ox 88 90 93 O2 Delivery BiPAP/CPAP Bi-pap BiPAP/CPAP BiPAP/CPAP 03/14/18 03/14/18 03/14/18 03/14/18 16:35 17:00 17:05 18:00 Pulse 104 106 Resp 30 20 20 20 B/P (MAP) 98/62 (74) 110/60 (77) Pulse Ox 91 92 O2 Delivery BiPAP/CPAP BiPAP/CPAP BiPAP/CPAP 03/14/18 03/14/18 03/14/18 03/14/18 19:00 19:58 20:00 20:00 Temp 96.8 96.8 Pulse 106 108 Resp 24 24 B/P (MAP) 101/69 (80) 110/76 (87) Pulse Ox 96 94 97 O2 Delivery BiPAP/CPAP BiPAP/CPAP Bi-pap BiPAP/CPAP 1/9/19 1/9/19 1/9/19 1/9/19 21:00 22:00 23:00 23:03 Pulse 106 104 106 Resp 27 23 27 B/P (MAP) 95/65 (75) 93/67 (76) 106/68 (81) Pulse Ox 97 98 97 98 O2 Delivery BiPAP/CPAP BiPAP/CPAP BiPAP/CPAP BiPAP/CPAP 03/15/18 03/15/18 03/15/18 03/15/18 00:00 00:00 01:00 01:38 Temp 97.4 97.4 Pulse 102 105 Resp 25 24 B/P (MAP) 103/75 (84) 102/69 (80) Pulse Ox 97 96 97 O2 Delivery Bi-pap BiPAP/CPAP BiPAP/CPAP BiPAP/CPAP 03/15/18 03/15/18 03/15/18 03/15/18 02:00 03:00 03:55 04:00 Pulse 107 104 Resp 24 25 B/P (MAP) 105/78 (87) 97/66 (76) Pulse Ox 96 96 97 O2 Delivery BiPAP/CPAP BiPAP/CPAP BiPAP/CPAP Bi-pap 03/15/18 03/15/18 03/15/18 03/15/18 04:00 05:00 05:43 06:00 Temp 97.7 97.7 Pulse 107 106 105 Resp 26 25 24 B/P (MAP) 124/73 (90) 105/65 (78) 106/69 (81) Pulse Ox 99 97 97 98 O2 Delivery BiPAP/CPAP BiPAP/CPAP BiPAP/CPAP BiPAP/CPAP 03/15/18 03/15/18 03/15/18 03/15/18 07:00 07:50 08:00 08:00 Temp 98.3 98.3 Pulse 106 104 Resp 27 24 B/P (MAP) 93/62 (72) 84/60 (68) Pulse Ox 99 99 99 O2 Delivery BiPAP/CPAP BiPAP/CPAP BiPAP/CPAP Bi-pap 03/15/18 03/15/18 03/15/18 03/15/18 09:00 09:06 09:20 10:00 Pulse 108 102 Resp 30 39 B/P (MAP) 103/65 (78) 93/64 (74) Pulse Ox 99 99 92 90 O2 Delivery BiPAP/CPAP BiPAP/CPAP BiPAP/CPAP BiPAP/CPAP 03/15/18 03/15/18 03/15/18 10:08 11:00 11:16 Pulse 103 Resp 30 B/P (MAP) 98/60 (73) Pulse Ox 91 93 O2 Delivery BiPAP/CPAP BiPAP/CPAP BiPAP/CPAP Intake and Output 03/14/18 03/14/18 03/15/18 15:01 23:01 07:01 Intake Total 0 ml 1225 ml 1062 ml Output Total 0 ml 200 ml Balance 0 ml 1225 ml 862 ml Nutrition Consultation Dietary Evaluation: Recommendations by RD: PPN/TPN Comments: continue PPN at this time Expected Outcomes/Goals: diet advancement/ tolerance Malnutrition Findings: Food and Nutrition Intake (Mod: <75% est energy req 7days Weight Status: Appropriate SYLVIA DORAN MD Mar 15, 2018 12:50
--- NOTE | 2018-03-15 13:26 | PDOC2 ---
PALLIATIVE CARE Palliative Care Note Palliative Care Patient remains on BiPap remains hypercapnic. Complains of severe abdominal pain. Asking for pain medication. Met with Richy, daughter-Paris and family friend-Estela . Son Eduar is Autistic and did not meet. Reviewed current medical condition; 1. Progressive hypercapnic and hypoxic respiratory failure secondary to multifactorial etiologies. The patient had progressive metastatic ovarian cancer with ongoing congestive heart failure and bilateral effusions, suspected extreme weakness contributing to hypercapnia as well. Cannot exclude the possibility of thromboembolic disease but clinically less likely 2. End-stage renal disease, on hemodialysis. 3. Metastatic ovarian cancer. Reviewed Infections Disease impression , plans and results of cultures. Discussed options for care; continue current treatment plan BiPap, antibiotics , dialysis (scheduled today) vs comfort care. Richy adamant about continuing current treatment plan per him and his 's wishes--focused on breathing and use of BiPap. He declined further discussion and went back to the room to be with is . Continued to discuss concerns of progression of disease and multi-system failure with daughter and friend. They shared concerns: Eduar, son who is Autistic. Concerned that patient is afraid to because of Eduar and his care although several plans are in progress to care for him. At times patient has been very hopeful and then changes to be very discouraged about her prognosis and care. Confirmed Code Status: DNR/DNI Another family friend is arriving THERESE this evening. She is a long time friend of patient and is an [employer]. Richy has gone home to think over options and communication from Dr. Grimaldo and Dr. Abad. Will continue to follow and have discussions with patient and family. Plan; Continue current treatment plan. ANITA YI Mar 15, 2018 13:26
[2018-03-15] MEDS: POLYETHYLENE GLYCOL 3350 17 GM PACKET. PO SCH (20:04)
[2018-03-15] MEDS: fentaNYL 50MCG/HR PATCH 1 PATCH PATCH.TD72 TD SCH (20:46)
[2018-03-16] VITALS (28 sets, daily range): BP systolic 81–120; BP diastolic 51–78
[2018-03-16] MEDS: HYDROmorphone 2 MG/ML VIAL IV PRN ×5 (02:05→19:15)
[2018-03-16] MEDS: AMINO AC 3%/ELECTROLYTE/GLYCER 1,000 ML IV SCH ×2 (04:33→18:47)
[2018-03-16] MEDS: PIPERACILLIN/TAZOBACTAM 2.25 GM in IV NORMAL SALINE 50ML 50 ML IV SCH ×3 (05:17→21:07)
[2018-03-16 05:30] LABS: BASO % 0 % (0-3); EOS % 0 % (0-3); HEMATOCRIT 24.2 % (36.0-47.0); HEMOGLOBIN 7.3 g/dL (12.0-15.5); LYMPH # 0.4 x10^3/uL (1.0-4.8); LYMPH % 2 % (24-48); MEAN CORPUSCULAR HEMOGLOBIN 27 pg (25-35); MEAN CORPUSCULAR HGB CONC 30 g/dL (31-37); MEAN CORPUSCULAR VOLUME 91 fL (79-100); MONO # 0.9 x10^3/uL (0.0-1.1); MONO % 4 % (0-9); NEUT # 18.9 x10^3uL (1.8-7.7); NEUT % 94 % (31-73); PLATELET COUNT 309 x10^3/uL (140-400); RED BLOOD COUNT 2.68 x10^6/uL (3.50-5.40); RED CELL DISTRIBUTION WIDTH 20.5 % (11.5-14.5); WHITE BLOOD COUNT 20.2 x10^3/uL (4.0-11.0)
[2018-03-16 05:50] LABS: CALCIUM 8.5 mg/dL (8.5-10.1); CREATININE 4.4 mg/dL (0.6-1.0); GFR 10.3
[2018-03-16 05:55] LABS: POTASSIUM 5.7 mmol/L (3.5-5.1)
--- NOTE | 2018-03-16 07:20 | PDOC ---
Infectious Disease Note Subjective Subjective Events noted On Bipap Vital Sign Vital Signs Vital Signs Date Time Temp Pulse Resp B/P (MAP) Pulse Ox O2 Delivery O2 Flow Rate FiO2 03/16/18 06:49 24 97 BiPAP/CPAP 03/16/18 06:00 97 105/66 (79) 03/16/18 04:00 96.7 96.7 Physical Exam PHYSICAL EXAM CONSTITUTIONAL: She is sleeping. Appears comfortable HEENT: Her pupils equal and reactive. On bipap NECK: Supple. She has a Port-A-Cath in right chest without signs of any complications and left hemodialysis catheter without signs of any complications or tenderness. LUNGS: Decreased in the bases. HEART: S1, S2. ABDOMEN: Mildly - mod distended. She has decreased bowel sounds. She also has an NG tube in place. Her paracentesis site on the right mid lower quadrant is clean without signs of any complications. EXTREMITIES: Without clubbing, cyanosis. She has 1+ lower extremity edema. SKIN: Warm to touch without any obvious rash. NEUROLOGIC: on bipap and resting Labs Lab Laboratory Tests Test 03/15/18 08:00 03/16/18 05:00 O2 Saturation 97 % (92-99) Arterial Blood pH 7.17 (7.35-7.45) Arterial Blood pCO2 at Patient Temp 74 mmHg (35-46) Arterial Blood pO2 at Patient Temp 129 mmHg (75-108) Arterial Blood HCO3 27 mmol/L (21-28) Arterial Blood Base Excess -2 mmol/L (-3-3) FiO2 65 White Blood Count 20.2 x10^3/uL (4.0-11.0) Red Blood Count 2.68 x10^6/uL (3.50-5.40) Hemoglobin 7.3 g/dL (12.0-15.5) Hematocrit 24.2 % (36.0-47.0) Mean Corpuscular Volume 91 fL (79-100) Mean Corpuscular Hemoglobin 27 pg (25-35) Mean Corpuscular Hemoglobin Concent 30 g/dL (31-37) Red Cell Distribution Width 20.5 % (11.5-14.5) Platelet Count 309 x10^3/uL (140-400) Neutrophils (%) (Auto) 94 % (31-73) Lymphocytes (%) (Auto) 2 % (24-48) Monocytes (%) (Auto) 4 % (0-9) Eosinophils (%) (Auto) 0 % (0-3) Basophils (%) (Auto) 0 % (0-3) Neutrophils # (Auto) 18.9 x10^3uL (1.8-7.7) Lymphocytes # (Auto) 0.4 x10^3/uL (1.0-4.8) Monocytes # (Auto) 0.9 x10^3/uL (0.0-1.1) Eosinophils # (Auto) 0.0 x10^3/uL (0.0-0.7) Basophils # (Auto) 0.0 x10^3/uL (0.0-0.2) Sodium Level 134 mmol/L (136-145) Potassium Level 5.7 mmol/L (3.5-5.1) Chloride Level 95 mmol/L (98-107) Carbon Dioxide Level 25 mmol/L (21-32) Anion Gap 14 (6-14) Blood Urea Nitrogen 103 mg/dL (7-20) Creatinine 4.4 mg/dL (0.6-1.0) Estimated GFR (Cockcroft-Gault) 10.3 Glucose Level 101 mg/dL (70-99) Calcium Level 8.5 mg/dL (8.5-10.1) Micro Microbiology 03/12/18 Blood Culture - Final, Complete 03/08/18 Anaerobic/Aerobic Culture - Final, Complete 03/08/18 Anaerobic Culture Result 1 (TIMOTHY) - Final, Complete 03/08/18 Aerobic Culture - Final, Complete 03/08/18 Aerobic Culture Result 1 (TIMOTHY) - Final, Complete 03/08/18 Gram Stain - Final, Complete 03/08/18 Gram Stain Result 1 (TIMOTHY) - Final, Complete 03/08/18 Gram Stain Result 2 (TIMOTHY) - Final, Complete Objective Assessment Acute Resp Failure now on Bipap. Pleurx in place Leukocytosis - on Steroids Peritonitis - Bacteroides Mar 08 GNR sepsis - 03/12 Tiny GNR - likely anaerobes. larger rods also -ID still pending. Repeat 03/14 neg at one day Metastatic ovarian cancer, ascites s/p paracentesis - Bacteroides fragilis ESRD on HD Ileus/partial SBO LE dopplers neg 03/14 Plan Plan of Care Cont Zosyn Will d/c Flagyl today added 03/13/18 with some nausea F/u Repeat cults - neg Dosed Vanc times one 03/14 May need port and HD cath removed F/u labs Critically ill D/w nursing D/w Await Palliative decisions possibly today KATIE JONES MD Mar 16, 2018 07:20
[2018-03-16] MEDS: CARVEDILOL 6.25 MG TABLET. PO SCH ×2 (08:00→17:00)
[2018-03-16] MEDS: CALCIUM ACETATE 667 MG CAPSULE PO SCH ×3 (08:00→17:00)
[2018-03-16 08:07] LABS: BASE EXCESS ABG -6 mmol/L (-3-3); HCO3 ABG 23 mmol/L (21-28); PO2 ABG 125 mmHg (75-108); SAT O2 ABG 97 % (92-99)
[2018-03-16 08:14] LABS: PCO2 ABG 66 mmHg (35-46)
[2018-03-16 08:15] LABS: FIO2 ABG 50
[2018-03-16] MEDS ORDERED: SODIUM BICARB ADULT 8.4% 50 MEQ/50 ML DISP.SYRIN. IV ONE (08:30)
[2018-03-16] MEDS: DEXAMETHASONE 4 MG TABLET PO SCH (09:00)
[2018-03-16] MEDS: cloNIDine HCL 0.1 MG TABLET PO SCH ×2 (09:00→20:59)
[2018-03-16] MEDS: SENNOSIDES 8.6 MG TABLET PO SCH (09:00)
[2018-03-16] MEDS: FLUTICASONE 50MCG/NASAL SPRAY 16GM BOTTLE. NS SCH (09:00)
[2018-03-16] MEDS: MULTIVITAMIN with MINERAL TABLET. PO SCH (09:00)
[2018-03-16] MEDS: SERTRALINE 50 MG TABLET. PO SCH (09:00)
[2018-03-16] MEDS: FERROUS SULFATE ORAL 300 MG/5 ML SOLUTION. PO SCH (09:00)
[2018-03-16] MEDS: PANTOPRAZOLE IV PUSH 40 MG VIAL. IVP SCH (10:15)
[2018-03-16] MEDS: HEPARIN for SUB-Q USE 5,000 UNIT/ML VIAL. SQ SCH ×2 (10:16→21:09)
--- NOTE | 2018-03-16 10:41 | PDOC ---
Renal-Progress Notes Subjective Notes Notes ON BIPAP History of Present Illness Hx of present illness STABLE Vitals Vitals Vital Signs Date Time Temp Pulse Resp B/P (MAP) Pulse Ox O2 Delivery O2 Flow Rate FiO2 03/16/18 10:20 22 BiPAP/CPAP 03/16/18 09:10 94 03/16/18 09:00 93 100/66 (77) 03/16/18 08:00 96.9 96.9 Weight Weight [ ] I.O. Intake and Output Intake and Output 03/16/18 07:01 Intake Total 2086 ml Output Total 425 ml Balance 1661 ml Intake Oral 0 ml IV Total 2086 ml Output Urine Total 0 ml Gastric Drainage Total 425 ml Labs Labs Laboratory Tests Test 03/16/18 05:00 03/16/18 08:00 White Blood Count 20.2 x10^3/uL (4.0-11.0) Red Blood Count 2.68 x10^6/uL (3.50-5.40) Hemoglobin 7.3 g/dL (12.0-15.5) Hematocrit 24.2 % (36.0-47.0) Mean Corpuscular Volume 91 fL (79-100) Mean Corpuscular Hemoglobin 27 pg (25-35) Mean Corpuscular Hemoglobin Concent 30 g/dL (31-37) Red Cell Distribution Width 20.5 % (11.5-14.5) Platelet Count 309 x10^3/uL (140-400) Neutrophils (%) (Auto) 94 % (31-73) Lymphocytes (%) (Auto) 2 % (24-48) Monocytes (%) (Auto) 4 % (0-9) Eosinophils (%) (Auto) 0 % (0-3) Basophils (%) (Auto) 0 % (0-3) Neutrophils # (Auto) 18.9 x10^3uL (1.8-7.7) Lymphocytes # (Auto) 0.4 x10^3/uL (1.0-4.8) Monocytes # (Auto) 0.9 x10^3/uL (0.0-1.1) Eosinophils # (Auto) 0.0 x10^3/uL (0.0-0.7) Basophils # (Auto) 0.0 x10^3/uL (0.0-0.2) Sodium Level 134 mmol/L (136-145) Potassium Level 5.7 mmol/L (3.5-5.1) Chloride Level 95 mmol/L (98-107) Carbon Dioxide Level 25 mmol/L (21-32) Anion Gap 14 (6-14) Blood Urea Nitrogen 103 mg/dL (7-20) Creatinine 4.4 mg/dL (0.6-1.0) Estimated GFR (Cockcroft-Gault) 10.3 Glucose Level 101 mg/dL (70-99) Calcium Level 8.5 mg/dL (8.5-10.1) O2 Saturation 97 % (92-99) Arterial Blood pH 7.16 (7.35-7.45) Arterial Blood pCO2 at Patient Temp 66 mmHg (35-46) Arterial Blood pO2 at Patient Temp 125 mmHg (75-108) Arterial Blood HCO3 23 mmol/L (21-28) Arterial Blood Base Excess -6 mmol/L (-3-3) FiO2 50 Micro Micro Microbiology 03/14/18 Blood Culture - Preliminary, Resulted NO GROWTH AFTER 2 DAYS 03/08/18 Anaerobic/Aerobic Culture - Final, Complete 03/08/18 Anaerobic Culture Result 1 (TIMOTHY) - Final, Complete 03/08/18 Aerobic Culture - Final, Complete 03/08/18 Aerobic Culture Result 1 (TIMOTHY) - Final, Complete 03/08/18 Gram Stain - Final, Complete 03/08/18 Gram Stain Result 1 (TIMOTHY) - Final, Complete 03/08/18 Gram Stain Result 2 (TIMOTHY) - Final, Complete Review of Systems Ears/Nose/Throat: Yes: no symptom reported Eyes: Yes: no symptom reported Pulmonary: Yes no symptom reported Cardiovascular: Yes no symptom reported Gastrointestional: Yes: abdominal pain Genitourinary: Yes: no symptom reported Musculoskeletal: Yes: no symptom reported Skin: Yes no symptom reported Psychiatric/Neurological: Yes: depressed Endocrine: Yes: no symptom reported Physical Exam General Appearance: no apparent distress Skin: warm Respiratory: decreased breath sounds Heart: S1S2 Abdomen: soft, bowel sounds present Extremities: pulses present Neurology: alert, oriented Assessment Assessment IMP ACIDEMIA ACUTE RESP FAILURE ESRD HTN FEVER LEUCOCYTOSIS ABD PAIN MET OVARIAN CANCER ANEMIA PLAN ANTIBIOTICS ARANESP WANTS TO CONTINUE DIALYSIS FOR NOW WILL HD TODAY AND UF TOLERATED USING HIGH HCO3 DIALYSATE CONT BIPAP D/W DR MERCHANT AND CASIMIRO SMITH MD Mar 16, 2018 10:41
[2018-03-16 11:06] LABS: % BANDS 13 % (0-9); % EOS 1 % (0-5); % METAS 1 % (0-0); % MONOS 3 % (0-10); % MYELOS 1 % (0-0); % SEGS 81 % (35-66); NUCLEATED RBC 3; PLT ESTIMATE ADEQUATE (ADEQUATE)
[2018-03-16 11:07] LABS: ANISOCYTOSIS MOD; TOXIC GRANULATION PRESENT
--- NOTE | 2018-03-16 12:12 | PDOC ---
PULMONARY PROGRESS NOTES Subjective remains on bipap ABG reviewed Vitals Vital Signs Date Time Temp Pulse Resp B/P (MAP) Pulse Ox O2 Delivery O2 Flow Rate FiO2 03/16/18 11:00 93 22 117/66 (83) 92 BiPAP/CPAP 03/16/18 08:00 96.9 96.9 General: Lethargic Lungs: Other (decrease bs) Cardiovascular: S1 Abdomen: Soft Extremities: Other (1+edema) Labs Laboratory Tests Test 03/14/18 13:05 03/14/18 16:00 03/15/18 03:55 03/15/18 08:00 O2 Saturation 96 % (92-99) 90 % (92-99) 97 % (92-99) Arterial Blood pH 7.13 (7.35-7.45) 7.12 (7.35-7.45) 7.17 (7.35-7.45) Arterial Blood pCO2 at Patient Temp 91 mmHg (35-46) 84 mmHg (35-46) 74 mmHg (35-46) Arterial Blood pO2 at Patient Temp 97 mmHg (75-108) 70 mmHg (75-108) 129 mmHg (75-108) Arterial Blood HCO3 29 mmol/L (21-28) 27 mmol/L (21-28) 27 mmol/L (21-28) Arterial Blood Base Excess -1 mmol/L (-3-3) -4 mmol/L (-3-3) -2 mmol/L (-3-3) FiO2 70 65 65 White Blood Count 20.6 x10^3/uL (4.0-11.0) Red Blood Count 2.91 x10^6/uL (3.50-5.40) Hemoglobin 8.3 g/dL (12.0-15.5) Hematocrit 26.1 % (36.0-47.0) Mean Corpuscular Volume 89 fL (79-100) Mean Corpuscular Hemoglobin 29 pg (25-35) Mean Corpuscular Hemoglobin Concent 32 g/dL (31-37) Red Cell Distribution Width 19.7 % (11.5-14.5) Platelet Count 302 x10^3/uL (140-400) Neutrophils (%) (Auto) 91 % (31-73) Lymphocytes (%) (Auto) 3 % (24-48) Monocytes (%) (Auto) 6 % (0-9) Eosinophils (%) (Auto) 0 % (0-3) Basophils (%) (Auto) 0 % (0-3) Neutrophils # (Auto) 18.7 x10^3uL (1.8-7.7) Lymphocytes # (Auto) 0.7 x10^3/uL (1.0-4.8) Monocytes # (Auto) 1.2 x10^3/uL (0.0-1.1) Eosinophils # (Auto) 0.0 x10^3/uL (0.0-0.7) Basophils # (Auto) 0.0 x10^3/uL (0.0-0.2) Sodium Level 136 mmol/L (136-145) Potassium Level 5.5 mmol/L (3.5-5.1) Chloride Level 97 mmol/L (98-107) Carbon Dioxide Level 29 mmol/L (21-32) Anion Gap 10 (6-14) Blood Urea Nitrogen 89 mg/dL (7-20) Creatinine 3.9 mg/dL (0.6-1.0) Estimated GFR (Cockcroft-Gault) 11.9 Glucose Level 115 mg/dL (70-99) Calcium Level 8.3 mg/dL (8.5-10.1) Test 03/16/18 05:00 03/16/18 08:00 White Blood Count 20.2 x10^3/uL (4.0-11.0) Red Blood Count 2.68 x10^6/uL (3.50-5.40) Hemoglobin 7.3 g/dL (12.0-15.5) Hematocrit 24.2 % (36.0-47.0) Mean Corpuscular Volume 91 fL (79-100) Mean Corpuscular Hemoglobin 27 pg (25-35) Mean Corpuscular Hemoglobin Concent 30 g/dL (31-37) Red Cell Distribution Width 20.5 % (11.5-14.5) Platelet Count 309 x10^3/uL (140-400) Neutrophils (%) (Auto) 94 % (31-73) Lymphocytes (%) (Auto) 2 % (24-48) Monocytes (%) (Auto) 4 % (0-9) Eosinophils (%) (Auto) 0 % (0-3) Basophils (%) (Auto) 0 % (0-3) Neutrophils # (Auto) 18.9 x10^3uL (1.8-7.7) Lymphocytes # (Auto) 0.4 x10^3/uL (1.0-4.8) Monocytes # (Auto) 0.9 x10^3/uL (0.0-1.1) Eosinophils # (Auto) 0.0 x10^3/uL (0.0-0.7) Basophils # (Auto) 0.0 x10^3/uL (0.0-0.2) Segmented Neutrophils % 81 % (35-66) Band Neutrophils % 13 % (0-9) Monocytes % 3 % (0-10) Eosinophils % 1 % (0-5) Metamyelocytes % 1 % (0-0) Myelocytes % 1 % (0-0) Nucleated Red Blood Cells 3 Toxic Granulation Present Platelet Estimate Adequate (ADEQUATE) Large Platelets Present Giant Platelets Present Basophilic Stippling Present Anisocytosis Mod Sodium Level 134 mmol/L (136-145) Potassium Level 5.7 mmol/L (3.5-5.1) Chloride Level 95 mmol/L (98-107) Carbon Dioxide Level 25 mmol/L (21-32) Anion Gap 14 (6-14) Blood Urea Nitrogen 103 mg/dL (7-20) Creatinine 4.4 mg/dL (0.6-1.0) Estimated GFR (Cockcroft-Gault) 10.3 Glucose Level 101 mg/dL (70-99) Calcium Level 8.5 mg/dL (8.5-10.1) O2 Saturation 97 % (92-99) Arterial Blood pH 7.16 (7.35-7.45) Arterial Blood pCO2 at Patient Temp 66 mmHg (35-46) Arterial Blood pO2 at Patient Temp 125 mmHg (75-108) Arterial Blood HCO3 23 mmol/L (21-28) Arterial Blood Base Excess -6 mmol/L (-3-3) FiO2 50 Laboratory Tests Test 03/16/18 05:00 03/16/18 08:00 White Blood Count 20.2 x10^3/uL (4.0-11.0) Red Blood Count 2.68 x10^6/uL (3.50-5.40) Hemoglobin 7.3 g/dL (12.0-15.5) Hematocrit 24.2 % (36.0-47.0) Mean Corpuscular Volume 91 fL (79-100) Mean Corpuscular Hemoglobin 27 pg (25-35) Mean Corpuscular Hemoglobin Concent 30 g/dL (31-37) Red Cell Distribution Width 20.5 % (11.5-14.5) Platelet Count 309 x10^3/uL (140-400) Neutrophils (%) (Auto) 94 % (31-73) Lymphocytes (%) (Auto) 2 % (24-48) Monocytes (%) (Auto) 4 % (0-9) Eosinophils (%) (Auto) 0 % (0-3) Basophils (%) (Auto) 0 % (0-3) Neutrophils # (Auto) 18.9 x10^3uL (1.8-7.7) Lymphocytes # (Auto) 0.4 x10^3/uL (1.0-4.8) Monocytes # (Auto) 0.9 x10^3/uL (0.0-1.1) Eosinophils # (Auto) 0.0 x10^3/uL (0.0-0.7) Basophils # (Auto) 0.0 x10^3/uL (0.0-0.2) Segmented Neutrophils % 81 % (35-66) Band Neutrophils % 13 % (0-9) Monocytes % 3 % (0-10) Eosinophils % 1 % (0-5) Metamyelocytes % 1 % (0-0) Myelocytes % 1 % (0-0) Nucleated Red Blood Cells 3 Toxic Granulation Present Platelet Estimate Adequate (ADEQUATE) Large Platelets Present Giant Platelets Present Basophilic Stippling Present Anisocytosis Mod Sodium Level 134 mmol/L (136-145) Potassium Level 5.7 mmol/L (3.5-5.1) Chloride Level 95 mmol/L (98-107) Carbon Dioxide Level 25 mmol/L (21-32) Anion Gap 14 (6-14) Blood Urea Nitrogen 103 mg/dL (7-20) Creatinine 4.4 mg/dL (0.6-1.0) Estimated GFR (Cockcroft-Gault) 10.3 Glucose Level 101 mg/dL (70-99) Calcium Level 8.5 mg/dL (8.5-10.1) O2 Saturation 97 % (92-99) Arterial Blood pH 7.16 (7.35-7.45) Arterial Blood pCO2 at Patient Temp 66 mmHg (35-46) Arterial Blood pO2 at Patient Temp 125 mmHg (75-108) Arterial Blood HCO3 23 mmol/L (21-28) Arterial Blood Base Excess -6 mmol/L (-3-3) FiO2 50 Medications Active Scripts Medications Dose Route/Sig Max Daily Dose Days Date Category Zoloft (Sertraline Hcl) 100 Mg Tablet 150 Mg PO DAILY 03/06/18 Reported Senna Lax (Sennosides) 8.6 Mg Tablet 8.6 Mg PO DAILY 03/06/18 Reported Proair Hfa (Albuterol Sulfate) 8.5 Gm Hfa.aer.ad 2 Puff INH PRN Q6HRS PRN 03/06/18 Reported Miralax (Polyethylene Glycol 3350) 17 Gm Powd.pack 1 Pkt PO HS 03/06/18 Reported Oxycodone Hcl 5 Mg Capsule 20 Mg PO PRN Q4HRS PRN 03/06/18 Reported Oxycodone Hcl 5 Mg Capsule 10 Mg PO PRN Q4HRS PRN 03/06/18 Reported Ondansetron Odt (Ondansetron) 4 Mg Tab.rapdis 8 Mg PO PRN Q8HRS PRN 03/06/18 Reported One-Daily Multi-Vitamin (Multivitamin) 1 Each Tablet 1 Each PO HS 03/06/18 Reported Melatonin 3 Mg Tablet 1 Tab PO QHS 03/06/18 Reported Ativan (Lorazepam) 0.5 Mg Tablet 0.5 Mg PO PRN Q12HRS PRN 03/06/18 Reported Guaifenesin-Codeine Syrup (Guaifenesin/Codeine Phosphate) 118 Ml Liquid 10 Ml PO PRN Q4HRS PRN 03/06/18 Reported Flonase Allergy Relief (Fluticasone Propionate) 9.9 Ml [place].susp 1 Sprays NS DAILY 03/06/18 Reported FENTANYL 50mcg/hr (Fentanyl) 1 Each Patch.td72 1 Patch TP Q3DAYS 03/06/18 Reported Famotidine 40 Mg Tablet 20 Mg PO HS 03/06/18 Reported Dexamethasone 4 Mg Tablet 4 Tab PO DAILY 03/06/18 Reported Clonidine Hcl 0.1 Mg Tablet 0.1 Mg PO BID 03/06/18 Reported Carvedilol 25 Mg Tablet 6.25 Mg PO BIDWMEALS 03/06/18 Reported Calcium Acetate 667 Mg Tablet 667 Mg PO TIDWMEALS 03/06/18 Reported Impression . 1. Progressive hypercapnic and hypoxic respiratory failure secondary to multifactorial etiologies. The patient had progressive metastatic ovarian cancer with ongoing congestive heart failure and bilateral effusions, suspected extreme weakness contributing to hypercapnia as well. 2. End-stage renal disease, on hemodialysis. 3. Metastatic ovarian cancer. 4. History of subdural hematoma. 5. History of gastroesophageal reflux disease. 6. Non-ST elevation myocardial infarction. 7. Depression. 8. Hyperlipidemia. Plan . 1. Persistent hypercapnic RF despite multiple changes on BIPAP. suspect metabolic component as well as PH has not improved despite improvement in PCO2. / Family wants to continue present care 2. In the meantime,continue BiPAP. 3. I do not see any further need for any diagnostic or invasive workup. 4. Follow ABGs prn 5. Continue antibiotics. 6. Venous Dopplers are negative. 7. Supportive care and follow recommendations of Renal and Oncology. 8. DVT prophylaxis. 9. Stress ulcer prophylaxis. 10. Discussed with RN and RT and discussed with Dr. Abad and her daughter 11. HD today RAEGAN MERCHANT MD Mar 16, 2018 12:11
--- NOTE | 2018-03-16 12:33 | PDOC ---
Subjective: Subjective: Abdomen is tight and squeezing. Objective: Objective: D/w RN - plans for dialysis, NG still bilious output. Vital Signs: Vital Signs Date Time Temp Pulse Resp B/P (MAP) Pulse Ox O2 Delivery O2 Flow Rate FiO2 03/16/18 11:51 94 BiPAP/CPAP 03/16/18 11:00 93 22 117/66 (83) 03/16/18 08:00 96.9 96.9 Labs: Laboratory Tests Test 03/16/18 05:00 03/16/18 08:00 White Blood Count 20.2 x10^3/uL Red Blood Count 2.68 x10^6/uL Hemoglobin 7.3 g/dL Hematocrit 24.2 % Mean Corpuscular Volume 91 fL Mean Corpuscular Hemoglobin 27 pg Mean Corpuscular Hemoglobin Concent 30 g/dL Red Cell Distribution Width 20.5 % Platelet Count 309 x10^3/uL Neutrophils (%) (Auto) 94 % Lymphocytes (%) (Auto) 2 % Monocytes (%) (Auto) 4 % Eosinophils (%) (Auto) 0 % Basophils (%) (Auto) 0 % Neutrophils # (Auto) 18.9 x10^3uL Lymphocytes # (Auto) 0.4 x10^3/uL Monocytes # (Auto) 0.9 x10^3/uL Eosinophils # (Auto) 0.0 x10^3/uL Basophils # (Auto) 0.0 x10^3/uL Segmented Neutrophils % 81 % Band Neutrophils % 13 % Monocytes % 3 % Eosinophils % 1 % Metamyelocytes % 1 % Myelocytes % 1 % Nucleated Red Blood Cells 3 Toxic Granulation Present Platelet Estimate Adequate Large Platelets Present Giant Platelets Present Basophilic Stippling Present Anisocytosis Mod Sodium Level 134 mmol/L Potassium Level 5.7 mmol/L Chloride Level 95 mmol/L Carbon Dioxide Level 25 mmol/L Anion Gap 14 Blood Urea Nitrogen 103 mg/dL Creatinine 4.4 mg/dL Estimated GFR (Cockcroft-Gault) 10.3 Glucose Level 101 mg/dL Calcium Level 8.5 mg/dL O2 Saturation 97 % Arterial Blood pH 7.16 Arterial Blood pCO2 at Patient Temp 66 mmHg Arterial Blood pO2 at Patient Temp 125 mmHg Arterial Blood HCO3 23 mmol/L Arterial Blood Base Excess -6 mmol/L FiO2 50 PE: GEN: ill LUNGS: BiPAP ABD: distended, uncomfortable NEURO/PSYCH: A & O �3 A/P: Resp failure, peritonitis, sepsis Metastatic ovarian cancer - DNR ESRD - plans for HD today Ileus/SBO - has NG -- Care plans evolving, consider repeat abd imaging if indicated. CAROL GOMEZ Mar 16, 2018 12:33
--- NOTE | 2018-03-16 13:34 | PDOC ---
PROGRESS NOTES Chief Complaint Chief Complaint Acute hypoxemic respiratory failure failing Bipap, prognosis very grim, discussed with family at bedside. Ovarian Cancer, METASTATIC End Stage Renal Disease, HD dependent Tachycardia small bowel obstruction by ct Ascites - s/p paracentesis (800cc) Abnormal KUB/CT - ?ileus/SBO VERY POOR PROGNOSIS will continue to follow with regarding treatment plan, they have not decided to place patient on comfort measusres continue current support measures her body may not have much reserve left given her multiple comorbidities and underlying malignancy I have tried to provide reassurance and answer patient's questions to the best of my abilities. History of Present Illness History of Present Illness patient lying in bed in moderate distress, complaining of pain, still on bipap which now is starting to create pressure ulcers from the mask, discussed at length with who seems keen on continuing dialysis despite several discussions with myself the consultants in palliative care. Patient has very poor prognosis and I have tried to explain the importance of providing comfort and dignity to the patient especially since she is on most likely her last basal nurse. I have assured him that we will provide him with all the necessary pieces of information so he can make the best decision for the patient since he is the DURABLE POWER OF TOMOGRAPHY TECHNOLOGIST and healthcare surrogate Vitals Vitals Vital Signs Date Time Temp Pulse Resp B/P (MAP) Pulse Ox O2 Delivery O2 Flow Rate FiO2 03/16/18 11:51 94 BiPAP/CPAP 03/16/18 11:00 93 22 117/66 (83) 03/16/18 08:00 96.9 96.9 Physical Exam Physical Exam CONSTITUTIONAL: She is sleeping. Appears comfortable HEENT: Her pupils equal and reactive. On bipap NECK: Supple. She has a Port-A-Cath in right chest without signs of any complications and left hemodialysis catheter without signs of any complications or tenderness. LUNGS: Decreased in the bases. HEART: S1, S2. ABDOMEN: Mildly - mod distended. She has decreased bowel sounds. She also has an NG tube in place. Her paracentesis site on the right mid lower quadrant is clean without signs of any complications. EXTREMITIES: Without clubbing, cyanosis. She has 1+ lower extremity edema. SKIN: Warm to touch without any obvious rash. NEUROLOGIC: on bipap and resting General: Alert, Oriented X3, Cooperative, No acute distress, moderate distress Heart: Regular rate, Normal S1, Normal S2, No murmurs, Gallops, Other (TACHY RATE 116) Lungs: Other (decrease bs) Abdomen: Normal bowel sounds, Soft, No tenderness, No hepatosplenomegaly, No masses Extremities: No clubbing, No cyanosis, Normal pulses, No tenderness/swelling, Other (3+ edema) Labs LABS Laboratory Tests Test 03/16/18 05:00 03/16/18 08:00 White Blood Count 20.2 x10^3/uL (4.0-11.0) Red Blood Count 2.68 x10^6/uL (3.50-5.40) Hemoglobin 7.3 g/dL (12.0-15.5) Hematocrit 24.2 % (36.0-47.0) Mean Corpuscular Volume 91 fL (79-100) Mean Corpuscular Hemoglobin 27 pg (25-35) Mean Corpuscular Hemoglobin Concent 30 g/dL (31-37) Red Cell Distribution Width 20.5 % (11.5-14.5) Platelet Count 309 x10^3/uL (140-400) Neutrophils (%) (Auto) 94 % (31-73) Lymphocytes (%) (Auto) 2 % (24-48) Monocytes (%) (Auto) 4 % (0-9) Eosinophils (%) (Auto) 0 % (0-3) Basophils (%) (Auto) 0 % (0-3) Neutrophils # (Auto) 18.9 x10^3uL (1.8-7.7) Lymphocytes # (Auto) 0.4 x10^3/uL (1.0-4.8) Monocytes # (Auto) 0.9 x10^3/uL (0.0-1.1) Eosinophils # (Auto) 0.0 x10^3/uL (0.0-0.7) Basophils # (Auto) 0.0 x10^3/uL (0.0-0.2) Segmented Neutrophils % 81 % (35-66) Band Neutrophils % 13 % (0-9) Monocytes % 3 % (0-10) Eosinophils % 1 % (0-5) Metamyelocytes % 1 % (0-0) Myelocytes % 1 % (0-0) Nucleated Red Blood Cells 3 Toxic Granulation Present Platelet Estimate Adequate (ADEQUATE) Large Platelets Present Giant Platelets Present Basophilic Stippling Present Anisocytosis Mod Sodium Level 134 mmol/L (136-145) Potassium Level 5.7 mmol/L (3.5-5.1) Chloride Level 95 mmol/L (98-107) Carbon Dioxide Level 25 mmol/L (21-32) Anion Gap 14 (6-14) Blood Urea Nitrogen 103 mg/dL (7-20) Creatinine 4.4 mg/dL (0.6-1.0) Estimated GFR (Cockcroft-Gault) 10.3 Glucose Level 101 mg/dL (70-99) Calcium Level 8.5 mg/dL (8.5-10.1) O2 Saturation 97 % (92-99) Arterial Blood pH 7.16 (7.35-7.45) Arterial Blood pCO2 at Patient Temp 66 mmHg (35-46) Arterial Blood pO2 at Patient Temp 125 mmHg (75-108) Arterial Blood HCO3 23 mmol/L (21-28) Arterial Blood Base Excess -6 mmol/L (-3-3) FiO2 50 Assessment and Plan Assessmemt and Plan Problems Medical Problems: (1) Dialysis catheter clot or failure Status: Acute (2) Serum potassium elevated Status: Acute Comment Review of Relevant I have reviewed the following items arden (where applicable) has been applied. Labs Laboratory Tests Test 03/14/18 16:00 03/15/18 03:55 03/15/18 08:00 03/16/18 05:00 O2 Saturation 90 % (92-99) 97 % (92-99) Arterial Blood pH 7.12 (7.35-7.45) 7.17 (7.35-7.45) Arterial Blood pCO2 at Patient Temp 84 mmHg (35-46) 74 mmHg (35-46) Arterial Blood pO2 at Patient Temp 70 mmHg (75-108) 129 mmHg (75-108) Arterial Blood HCO3 27 mmol/L (21-28) 27 mmol/L (21-28) Arterial Blood Base Excess -4 mmol/L (-3-3) -2 mmol/L (-3-3) FiO2 65 65 White Blood Count 20.6 x10^3/uL (4.0-11.0) 20.2 x10^3/uL (4.0-11.0) Red Blood Count 2.91 x10^6/uL (3.50-5.40) 2.68 x10^6/uL (3.50-5.40) Hemoglobin 8.3 g/dL (12.0-15.5) 7.3 g/dL (12.0-15.5) Hematocrit 26.1 % (36.0-47.0) 24.2 % (36.0-47.0) Mean Corpuscular Volume 89 fL (79-100) 91 fL (79-100) Mean Corpuscular Hemoglobin 29 pg (25-35) 27 pg (25-35) Mean Corpuscular Hemoglobin Concent 32 g/dL (31-37) 30 g/dL (31-37) Red Cell Distribution Width 19.7 % (11.5-14.5) 20.5 % (11.5-14.5) Platelet Count 302 x10^3/uL (140-400) 309 x10^3/uL (140-400) Neutrophils (%) (Auto) 91 % (31-73) 94 % (31-73) Lymphocytes (%) (Auto) 3 % (24-48) 2 % (24-48) Monocytes (%) (Auto) 6 % (0-9) 4 % (0-9) Eosinophils (%) (Auto) 0 % (0-3) 0 % (0-3) Basophils (%) (Auto) 0 % (0-3) 0 % (0-3) Neutrophils # (Auto) 18.7 x10^3uL (1.8-7.7) 18.9 x10^3uL (1.8-7.7) Lymphocytes # (Auto) 0.7 x10^3/uL (1.0-4.8) 0.4 x10^3/uL (1.0-4.8) Monocytes # (Auto) 1.2 x10^3/uL (0.0-1.1) 0.9 x10^3/uL (0.0-1.1) Eosinophils # (Auto) 0.0 x10^3/uL (0.0-0.7) 0.0 x10^3/uL (0.0-0.7) Basophils # (Auto) 0.0 x10^3/uL (0.0-0.2) 0.0 x10^3/uL (0.0-0.2) Sodium Level 136 mmol/L (136-145) 134 mmol/L (136-145) Potassium Level 5.5 mmol/L (3.5-5.1) 5.7 mmol/L (3.5-5.1) Chloride Level 97 mmol/L (98-107) 95 mmol/L (98-107) Carbon Dioxide Level 29 mmol/L (21-32) 25 mmol/L (21-32) Anion Gap 10 (6-14) 14 (6-14) Blood Urea Nitrogen 89 mg/dL (7-20) 103 mg/dL (7-20) Creatinine 3.9 mg/dL (0.6-1.0) 4.4 mg/dL (0.6-1.0) Estimated GFR (Cockcroft-Gault) 11.9 10.3 Glucose Level 115 mg/dL (70-99) 101 mg/dL (70-99) Calcium Level 8.3 mg/dL (8.5-10.1) 8.5 mg/dL (8.5-10.1) Segmented Neutrophils % 81 % (35-66) Band Neutrophils % 13 % (0-9) Monocytes % 3 % (0-10) Eosinophils % 1 % (0-5) Metamyelocytes % 1 % (0-0) Myelocytes % 1 % (0-0) Nucleated Red Blood Cells 3 Toxic Granulation Present Platelet Estimate Adequate (ADEQUATE) Large Platelets Present Giant Platelets Present Basophilic Stippling Present Anisocytosis Mod Test 03/16/18 08:00 O2 Saturation 97 % (92-99) Arterial Blood pH 7.16 (7.35-7.45) Arterial Blood pCO2 at Patient Temp 66 mmHg (35-46) Arterial Blood pO2 at Patient Temp 125 mmHg (75-108) Arterial Blood HCO3 23 mmol/L (21-28) Arterial Blood Base Excess -6 mmol/L (-3-3) FiO2 50 Laboratory Tests Test 03/16/18 05:00 03/16/18 08:00 White Blood Count 20.2 x10^3/uL (4.0-11.0) Red Blood Count 2.68 x10^6/uL (3.50-5.40) Hemoglobin 7.3 g/dL (12.0-15.5) Hematocrit 24.2 % (36.0-47.0) Mean Corpuscular Volume 91 fL (79-100) Mean Corpuscular Hemoglobin 27 pg (25-35) Mean Corpuscular Hemoglobin Concent 30 g/dL (31-37) Red Cell Distribution Width 20.5 % (11.5-14.5) Platelet Count 309 x10^3/uL (140-400) Neutrophils (%) (Auto) 94 % (31-73) Lymphocytes (%) (Auto) 2 % (24-48) Monocytes (%) (Auto) 4 % (0-9) Eosinophils (%) (Auto) 0 % (0-3) Basophils (%) (Auto) 0 % (0-3) Neutrophils # (Auto) 18.9 x10^3uL (1.8-7.7) Lymphocytes # (Auto) 0.4 x10^3/uL (1.0-4.8) Monocytes # (Auto) 0.9 x10^3/uL (0.0-1.1) Eosinophils # (Auto) 0.0 x10^3/uL (0.0-0.7) Basophils # (Auto) 0.0 x10^3/uL (0.0-0.2) Segmented Neutrophils % 81 % (35-66) Band Neutrophils % 13 % (0-9) Monocytes % 3 % (0-10) Eosinophils % 1 % (0-5) Metamyelocytes % 1 % (0-0) Myelocytes % 1 % (0-0) Nucleated Red Blood Cells 3 Toxic Granulation Present Platelet Estimate Adequate (ADEQUATE) Large Platelets Present Giant Platelets Present Basophilic Stippling Present Anisocytosis Mod Sodium Level 134 mmol/L (136-145) Potassium Level 5.7 mmol/L (3.5-5.1) Chloride Level 95 mmol/L (98-107) Carbon Dioxide Level 25 mmol/L (21-32) Anion Gap 14 (6-14) Blood Urea Nitrogen 103 mg/dL (7-20) Creatinine 4.4 mg/dL (0.6-1.0) Estimated GFR (Cockcroft-Gault) 10.3 Glucose Level 101 mg/dL (70-99) Calcium Level 8.5 mg/dL (8.5-10.1) O2 Saturation 97 % (92-99) Arterial Blood pH 7.16 (7.35-7.45) Arterial Blood pCO2 at Patient Temp 66 mmHg (35-46) Arterial Blood pO2 at Patient Temp 125 mmHg (75-108) Arterial Blood HCO3 23 mmol/L (21-28) Arterial Blood Base Excess -6 mmol/L (-3-3) FiO2 50 Microbiology 03/14/18 Blood Culture - Preliminary, Resulted NO GROWTH AFTER 2 DAYS 03/08/18 Anaerobic/Aerobic Culture - Final, Complete 03/08/18 Anaerobic Culture Result 1 (TIMOTHY) - Final, Complete 03/08/18 Aerobic Culture - Final, Complete 03/08/18 Aerobic Culture Result 1 (TIMOTHY) - Final, Complete 03/08/18 Gram Stain - Final, Complete 03/08/18 Gram Stain Result 1 (TIMOTHY) - Final, Complete 03/08/18 Gram Stain Result 2 (TIMOTHY) - Final, Complete Medications Current Medications Ondansetron HCl (Zofran) 4 mg PRN Q8HRS PRN IV NAUSEA/VOMITING Last administered on 03/06/18at 05:34; Start 03/05/18 at 22:00; Stop 03/06/18 at 21:59 ; Status DC Fentanyl Citrate (Fentanyl 2ml Vial) 50 mcg PRN Q1HR PRN IV PAIN Last administered on 03/06/18at 05:35; Start 03/05/18 at 22:00; Stop 03/06/18 at 21:59 ; Status DC Calcium Gluconate (Calcium Gluconate) 1,000 mg 1X ONCE IVP Last administered on 03/05/18at 23:23; Start 03/05/18 at 22:15; Stop 03/05/18 at 22:16; Status DC Sodium Bicarbonate (Sodium Bicarb Adult 8.4% Syr) 50 meq 1X ONCE IV Last administered on 03/05/18at 23:23; Start 03/05/18 at 22:15; Stop 03/05/18 at 22 :16; Status DC Sodium Polystyrene Sulfonate (Kayexalate) 30 gm 1X ONCE PO Last administered on 03/05/18at 23:23; Start 03/05/18 at 22:15; Stop 03/05/18 at 22:16; Status DC Ondansetron HCl (Zofran) 4 mg 1X ONCE IV Last administered on 03/05/18at 22:55 ; Start 03/05/18 at 22:45; Stop 03/05/18 at 22:55; Status DC Prochlorperazine Edisylate (Compazine) 10 mg PRN Q6HRS PRN IM NAUSEA/VOMITING; Start 03/06/18 at 06:15; Stop 03/06/18 at 12:32; Status DC Oxycodone HCl (Roxicodone) 10 mg PRN Q4HRS PRN PO MILD - MODERATE PAIN Last administered on 03/11/18at 00:24; Start 03/06/18 at 06:15 Oxycodone HCl (Roxicodone) 20 mg PRN Q4HRS PRN PO SEVERE PAIN; Start 03/06/18 at 06:15 Lidocaine/ Epinephrine (LIDOCAINE 1%-EPI 1:100,000 Multi-Dose) 20 ml STK-MED ONCE .ROUTE ; Start 03/06/18 at 09:11; Stop 03/06/18 at 09:12; Status DC Cefazolin Sodium 50 ml @ As Directed STK-MED ONCE IV ; Start 03/06/18 at 09:34; Stop 03/06/18 at 09:35; Status DC Midazolam HCl (Versed) 2 mg STK-MED ONCE .ROUTE ; Start 03/06/18 at 09:34; Stop 03/06/18 at 09:35; Status DC Fentanyl Citrate (Fentanyl 2ml Vial) 100 mcg STK-MED ONCE .ROUTE ; Start at 09:34; Stop 03/06/18 at 09:35; Status DC Heparin Sodium (Porcine) (Heparin Sodium) 10,000 unit STK-MED ONCE .ROUTE ; Start 03/06/18 at 09:44; Stop 03/06/18 at 09:46; Status DC Midazolam HCl (Versed) 2 mg 1X ONCE IV Last administered on 03/06/18at 10:11; Start 03/06/18 at 10:30; Stop 03/06/18 at 10:35; Status DC Fentanyl Citrate (Fentanyl 2ml Vial) 100 mcg 1X ONCE IV Last administered on at 10:11; Start 03/06/18 at 10:30; Stop 03/06/18 at 10:35; Status DC Lidocaine/ Epinephrine (LIDOCAINE 1%-EPI 1:100,000 Multi-Dose) 20 ml 1X ONCE IJ Last administered on 03/06/18at 10:09; Start 03/06/18 at 10:30; Stop 03/06/18 at 10:35; Status DC Cefazolin Sodium 50 ml @ 100 mls/hr 1X ONCE IV Last administered on 03/06/18at 10:11; Start 03/06/18 at 10:30; Stop 03/06/18 at 10:59; Status DC Heparin Sodium (Porcine) (Heparin Sodium) 4,200 unit 1X ONCE INT CAT Last administered on 03/06/18at 10:11; Start 03/06/18 at 10:30; Stop 03/06/18 at 10:35; Status DC Clonidine HCl (Catapres) 0.1 mg BID PO Last administered on 03/10/18 21:05; Start 03/06/18 at 12:00 Dexamethasone (Decadron) 16 mg DAILY PO Last administered on 03/07/18at 13:12; Start 03/06/18 at 12:00; Stop 03/08/18 at 09:00; Status DC Fentanyl (Duragesic 50mcg/ Hr Patch) 1 patch Q3DAYS TD ; Start 03/06/18 at 21:00 ; Stop 03/06/18 at 21:05; Status DC Lorazepam (Ativan) 0.5 mg PRN Q12HRS PRN PO ANXIETY / AGITATION; Start 03/06/18 at 11:30 Ondansetron HCl (Zofran Odt) 8 mg PRN Q8HRS PRN PO NAUSEA/VOMITING Last administered on 03/11/18at 01:41; Start 03/06/18 at 11:30 Calcium Acetate (Phoslo) 667 mg TIDWMEALS PO Last administered on 03/09/18at 12: 09; Start 03/06/18 at 12:00 Carvedilol (Coreg) 6.25 mg BIDWMEALS PO Last administered on 03/10/18 18:35; Start 03/06/18 at 12:00 Famotidine (Pepcid) 20 mg QHS PO Last administered on 03/06/18 20:51; Start 03/06/18 at 21:00; Stop 03/07/18 at 13:15; Status DC Fluticasone Propionate (Flonase) 1 spray DAILY NS Last administered on at 12:16; Start 03/06/18 at 12:00 Guaifenesin/ Codeine Phosphate (Robitussin Ac) 10 ml PRN Q4HRS PRN PO COUGH; Start 03/06/18 at 11:45 Non-Formulary Medication (Melatonin ) 1 tab QHS PO ; Start 03/06/18 at 21:00; Status UNV Multivitamins (Thera M Plus) 1 tab DAILY PO Last administered on 03/09/18at 08:20 ; Start 03/06/18 at 12:00 Polyethylene Glycol (miraLAX PACKET) 17 gm QHS PO Last administered on at 21:04; Start 03/06/18 at 21:00 Sennosides (Senna) 8.6 mg DAILY PO Last administered on 03/09/18 08:20; Start 03/06/18 at 12:00 Sertraline HCl (Zoloft) 150 mg DAILY PO Last administered on 03/09/18 08:20; Start 03/06/18 at 12:00 Prochlorperazine Edisylate (Compazine) 10 mg PRN Q6HRS PRN IV NAUSEA/VOMITING Last administered on 03/15/18at 07:03; Start 03/06/18 at 12:45 Darbepoetin Taran (Aranesp) 60 mcg [id number] SQ Last administered on 03/13/18 21: 03; Start 03/06/18 at 21:00 Magnesium Sulfate 50 ml @ 25 mls/hr PRN DAILY PRN IV for Mag < 1.7 on am labs; Start 03/06/18 at 13:45 Sodium Chloride 1,000 ml @ 1,000 mls/hr Q1H PRN IV hypotension; Start 03/06/18 at 12:30; Stop 03/06/18 at 18:29; Status DC Sodium Chloride 1,000 ml @ 400 mls/hr Q2H30M PRN IV PATENCY; Start 03/06/18 at 12:30; Stop 03/06/18 at 20:00; Status DC Info (PHARMACY MONITORING -- do not chart) 1 each PRN DAILY PRN MC SEE COMMENTS ; Start 03/06/18 at 15:00; Status UNV Info (PHARMACY MONITORING -- do not chart) 1 each PRN DAILY PRN MC SEE COMMENTS ; Start 03/06/18 at 15:00; Stop 03/07/18 at 16:17; Status DC Fentanyl (Duragesic 50mcg/ Hr Patch) 1 patch Q72H TD Last administered on at 20:46; Start 03/06/18 at 21:30 Sodium Chloride 1,000 ml @ 1,000 mls/hr Q1H PRN IV hypotension; Start 03/07/18 at 07:51; Stop 03/07/18 at 13:50; Status DC Albumin Human 200 ml @ 200 mls/hr 1X PRN PRN IV Hypotension; Start 03/07/18 at 08:00; Stop 03/07/18 at 13:59; Status DC Sodium Chloride 1,000 ml @ 400 mls/hr Q2H30M PRN IV PATENCY; Start 03/07/18 at 07:51; Stop 03/07/18 at 19:50; Status DC Info (PHARMACY MONITORING -- do not chart) 1 each PRN DAILY PRN MC SEE COMMENTS ; Start 03/07/18 at 08:00; Stop 03/09/18 at 18:51; Status DC Info (PHARMACY MONITORING -- do not chart) 1 each PRN DAILY PRN MC SEE COMMENTS ; Start 03/07/18 at 08:00; Status UNV Dexamethasone (Decadron) 12 mg DAILY PO ; Start 03/07/18 at 09:30; Stop 03/07/18 at 09:33; Status DC Dexamethasone (Decadron) 12 mg DAILY PO Last administered on 03/09/18at 08:20; Start 03/09/18 at 09:00; Stop 03/13/18 at 09:17; Status DC Pantoprazole Sodium (Protonix) 40 mg DAILYAC PO ; Start 03/08/18 at 07:30; Stop 03/08/18 at 07:30; Status DC Pantoprazole Sodium (PROTONIX VIAL for IV PUSH) 40 mg DAILYAC IVP Last administered on 03/09/18at 08:19; Start 03/08/18 at 07:30; Stop 03/09/18 at 12:24; Status DC Ferrous Sulfate (Iron Oral Solution) 300 mg DAILY PO Last administered on at 08:20; Start 03/08/18 at 10:30 Albumin Human 100 ml @ 100 mls/hr Q6HRS IV Last administered on 03/09/18at 17:28 ; Start 03/08/18 at 12:00; Stop 03/09/18 at 18:59; Status DC Sodium Chloride 1,000 ml @ 1,000 mls/hr Q1H PRN IV hypotension; Start 03/08/18 at 15:00; Stop 03/08/18 at 21:21; Status DC Sodium Chloride (Normal Saline Flush) 10 ml 1X PRN PRN IV AP catheter pack; Start 03/08/18 at 15:00; Stop 03/09/18 at 14:59; Status DC Sodium Chloride (Normal Saline Flush) 10 ml 1X PRN PRN IV RN TESTING catheter pack; Start 03/08/18 at 15:00; Stop 03/09/18 at 14:59; Status DC Info (PHARMACY MONITORING -- do not chart) 1 each PRN DAILY PRN MC SEE COMMENTS ; Start 03/08/18 at 21:15; Status Cancel Info (PHARMACY MONITORING -- do not chart) 1 each PRN DAILY PRN MC SEE COMMENTS ; Start 03/08/18 at 21:15 Pantoprazole Sodium (Protonix) 40 mg DAILYAC PO Last administered on 03/10/18at 08:20; Start 03/09/18 at 16:30; Stop 03/12/18 at 10:38; Status DC Sodium Chloride 1,000 ml @ 1,000 mls/hr Q1H PRN IV hypotension; Start 03/10/18 at 08:30; Stop 03/10/18 at 14:29; Status DC Sodium Chloride 1,000 ml @ 400 mls/hr Q2H30M PRN IV PATENCY; Start 03/10/18 at 08:30; Stop 03/10/18 at 20:29; Status DC Info (PHARMACY MONITORING -- do not chart) 1 each PRN DAILY PRN MC SEE COMMENTS ; Start 03/10/18 at 10:15; Status UNV Info (PHARMACY MONITORING -- do not chart) 1 each PRN DAILY PRN MC SEE COMMENTS ; Start 03/10/18 at 10:15; Status UNV Alteplase, Recombinant (Cathflo) 2 mg 1X ONCE INT CAT Last administered on 03/10at 14:04; Start 03/10/18 at 11:45; Stop 03/10/18 at 11:46; Status DC Amino Acids/ Glycerin/ Electrolytes 1,000 ml @ 80 mls/hr [id number] IV Last administered on 03/16/18at 04:33; Start 03/10/18 at 20:00 Alteplase, Recombinant (Cathflo) 2 mg 1X ONCE INT CAT Last administered on 03/10at 21:05; Start 03/10/18 at 20:00; Stop 03/10/18 at 20:16; Status DC Metoprolol Tartrate (Lopressor Vial) 5 mg 1X ONCE IVP Last administered on 03/11at 12:01; Start 03/11/18 at 12:00; Stop 03/11/18 at 12:01; Status DC Hydromorphone HCl (Dilaudid) 1 mg PRN Q4HRS PRN IV PAIN Last administered on 01/22at 10:20; Start 03/11/18 at 11:45 Sodium Chloride 500 ml @ 500 mls/hr 1X ONCE IV Last administered on 03/11/18at 12:02; Start 03/11/18 at 11:45; Stop 03/11/18 at 12:45; Status DC Metoprolol Tartrate (Lopressor Vial) 5 mg Q6HRS IVP ; Start 03/11/18 at 18:00; Stop 03/11/18 at 18:00; Status DC Alteplase, Recombinant (Cathflo) 2 mg 1X ONCE INT CAT ; Start 03/11/18 at 18:00 ; Stop 03/11/18 at 18:01; Status DC Metoprolol Tartrate (Lopressor Vial) 5 mg Q6HRS PRN IVP TACHYCARDIA Last administered on 03/14/18at 05:28; Start 03/11/18 at 18:00 Heparin Sodium (Porcine) (Hep Lock Adult) 500 unit 1X ONCE IV Last administered on 03/11/18at 18:20; Start 03/11/18 at 18:00; Stop 03/11/18 at 18:01; Status DC Acetaminophen (Tylenol Supp) 650 mg PRN Q6HRS PRN DC MILD PAIN / TEMP Last administered on 03/12/18at 09:27; Start 03/12/18 at 08:45 Throat Lozenges (Chloraseptic) 1 spray PRN Q2HR PRN PO SORE THROAT Last administered on 03/12/18at 09:26; Start 03/12/18 at 08:45 Pantoprazole Sodium (PROTONIX VIAL for IV PUSH) 40 mg DAILYAC IVP Last administered on 03/16/18at 10:15; Start 03/13/18 at 07:30 Dexamethasone (Decadron) 8 mg DAILY PO ; Start 03/13/18 at 09:30 Ceftriaxone Sodium (Rocephin) 1 gm Q24H IVP ; Start 03/13/18 at 10:30; Stop at 10:34; Status DC Piperacillin Sod/ Tazobactam Sod 3.375 gm/Sodium Chloride 50 ml @ 100 mls/hr Q6HRS IV ; Start 03/13/18 at 12:00; Stop 03/13/18 at 12:00; Status DC Sodium Chloride 1,000 ml @ 1,000 mls/hr Q1H PRN IV hypotension; Start 03/13/18 at 10:05; Stop 03/13/18 at 16:04; Status DC Albumin Human 200 ml @ 200 mls/hr 1X PRN PRN IV Hypotension; Start 03/13/18 at 10:15; Stop 03/13/18 at 16:14; Status DC Info (PHARMACY MONITORING -- do not chart) 1 each PRN DAILY PRN MC SEE COMMENTS ; Start 03/13/18 at 10:15; Status UNV Info (PHARMACY MONITORING -- do not chart) 1 each PRN DAILY PRN MC SEE COMMENTS ; Start 03/13/18 at 10:15; Status UNV Metronidazole 100 ml @ 100 mls/hr Q8HRS IV ; Start 03/13/18 at 10:45; Stop at 10:45; Status DC Piperacillin Sod/ Tazobactam Sod 2.25 gm/Sodium Chloride 50 ml @ 100 mls/hr Q8HRS IV Last administered on 03/16/18at 05:17; Start 03/13/18 at 14:00 Metronidazole 100 ml @ 100 mls/hr Q8HRS IV Last administered on 03/16/18at 06: 19; Start 03/13/18 at 11:00; Stop 03/16/18 at 07:19; Status DC Vancomycin HCl 1.25 gm/Sodium Chloride 250 ml @ 166.667 mls/hr 1X ONCE IV Last administered on 03/14/18at 09:02; Start 03/14/18 at 08:15; Stop 03/14/18 at 09: 44; Status DC Sodium Bicarbonate (Sodium Bicarb Adult 8.4% Syr) 100 meq 1X ONCE IV Last administered on 03/14/18at 11:00; Start 03/14/18 at 10:45; Stop 03/14/18 at 10:46; Status DC Heparin Sodium (Porcine) (Heparin Sodium) 5,000 unit BID SQ Last administered on 03/16/18at 10:16; Start 03/14/18 at 12:00 Lorazepam (Ativan) 0.5 mg PRN Q4HRS PRN IV ANXIETY / AGITATION Last administered on 03/16/18at 12:41; Start 03/14/18 at 17:00 Sodium Bicarbonate (Sodium Bicarb Adult 8.4% Syr) 50 meq 1X ONCE IV Last administered on 03/16/18at 10:15; Start 03/16/18 at 08:30; Stop 03/16/18 at 08:32 ; Status DC Active Scripts Active Reported Zoloft (Sertraline Hcl) 100 Mg Tablet 150 Mg PO DAILY Senna Lax (Sennosides) 8.6 Mg Tablet 8.6 Mg PO DAILY Proair Hfa (Albuterol Sulfate) 8.5 Gm Hfa.aer.ad 2 Puff INH PRN Q6HRS PRN Miralax (Polyethylene Glycol 3350) 17 Gm Powd.pack 1 Pkt PO HS Oxycodone Hcl 5 Mg Capsule 20 Mg PO PRN Q4HRS PRN Oxycodone Hcl 5 Mg Capsule 10 Mg PO PRN Q4HRS PRN Ondansetron Odt (Ondansetron) 4 Mg Tab.rapdis 8 Mg PO PRN Q8HRS PRN One-Daily Multi-Vitamin (Multivitamin) 1 Each Tablet 1 Each PO HS Melatonin 3 Mg Tablet 1 Tab PO QHS Ativan (Lorazepam) 0.5 Mg Tablet 0.5 Mg PO PRN Q12HRS PRN Guaifenesin-Codeine Syrup (Guaifenesin/Codeine Phosphate) 118 Ml Liquid 10 Ml PO PRN Q4HRS PRN Flonase Allergy Relief (Fluticasone Propionate) 9.9 Ml Amity.susp 1 Sprays NS DAILY FENTANYL 50mcg/hr (Fentanyl) 1 Each Patch.td72 1 Patch TP Q3DAYS Famotidine 40 Mg Tablet 20 Mg PO HS Dexamethasone 4 Mg Tablet 4 Tab PO DAILY Clonidine Hcl 0.1 Mg Tablet 0.1 Mg PO BID Carvedilol 25 Mg Tablet 6.25 Mg PO BIDWMEALS Calcium Acetate 667 Mg Tablet 667 Mg PO TIDWMEALS Vitals/I & O Vital Sign - Last 24 Hours 03/15/18 03/15/18 03/15/18 03/15/18 13:34 14:00 15:00 15:45 Pulse 100 90 Resp 26 29 B/P (MAP) 94/62 (73) 95/60 (72) Pulse Ox 97 96 97 96 O2 Delivery BiPAP/CPAP BiPAP/CPAP BiPAP/CPAP BiPAP/CPAP 03/15/18 03/15/18 03/15/18 03/15/18 16:00 16:00 17:00 17:36 Temp 98.0 98.0 Pulse 102 100 Resp 24 26 B/P (MAP) 110/69 (83) 110/62 (78) Pulse Ox 97 98 96 O2 Delivery Bi-pap BiPAP/CPAP BiPAP/CPAP BiPAP/CPAP 03/15/18 03/15/18 03/15/18 03/15/18 18:00 19:00 19:25 19:51 Temp 99.6 99.6 Pulse 104 98 Resp 28 25 B/P (MAP) 103/63 (76) 94/60 (71) Pulse Ox 92 95 97 O2 Delivery BiPAP/CPAP BiPAP/CPAP Bi-pap BiPAP/CPAP 03/15/18 03/15/18 03/15/18 03/15/18 20:00 21:00 22:00 23:00 Pulse 98 96 98 102 Resp 25 31 26 B/P (MAP) 98/63 (75) 111/67 (82) 106/66 (79) 102/55 (71) Pulse Ox 96 97 98 98 O2 Delivery BiPAP/CPAP BiPAP/CPAP BiPAP/CPAP BiPAP/CPAP 03/15/18 03/16/18 03/16/18 03/16/18 23:49 00:00 00:00 01:00 Temp 97.6 97.6 Pulse 99 98 Resp 32 B/P (MAP) 105/62 (76) 81/51 (61) Pulse Ox 97 98 98 O2 Delivery BiPAP/CPAP BiPAP/CPAP Bi-pap BiPAP/CPAP 03/16/18 03/16/18 03/16/18 03/16/18 02:00 02:15 03:00 03:41 Pulse 92 86 Resp 21 24 B/P (MAP) 105/69 (81) 99/63 (75) Pulse Ox 98 97 98 O2 Delivery BiPAP/CPAP BiPAP/CPAP BiPAP/CPAP Bi-pap 03/16/18 03/16/18 03/16/18 03/16/18 04:00 05:20 05:36 06:00 Temp 96.7 96.7 Pulse 85 94 97 Resp 24 28 28 B/P (MAP) 85/55 (65) 119/66 (83) 105/66 (79) Pulse Ox 98 98 98 98 O2 Delivery BiPAP/CPAP BiPAP/CPAP BiPAP/CPAP BiPAP/CPAP 03/16/18 03/16/18 03/16/18 03/16/18 06:19 06:49 07:00 07:54 Pulse 97 Resp 24 26 B/P (MAP) 111/66 (81) Pulse Ox 98 97 98 99 O2 Delivery BiPAP/CPAP BiPAP/CPAP BiPAP/CPAP 03/16/18 03/16/18 03/16/18 03/16/18 08:00 08:00 09:00 09:10 Temp 96.9 96.9 Pulse 100 93 Resp 22 28 B/P (MAP) 98/58 (71) 100/66 (77) Pulse Ox 97 92 94 O2 Delivery BiPAP/CPAP Bi-pap BiPAP/CPAP BiPAP/CPAP 03/16/18 03/16/18 03/16/18 03/16/18 10:00 10:20 10:50 11:00 Pulse 93 93 Resp 28 22 20 22 B/P (MAP) 105/68 (80) 117/66 (83) Pulse Ox 93 92 O2 Delivery BiPAP/CPAP BiPAP/CPAP BiPAP/CPAP BiPAP/CPAP 03/16/18 11:51 Pulse Ox 94 O2 Delivery BiPAP/CPAP Intake and Output 03/15/18 03/15/18 03/16/18 15:01 23:01 07:01 Intake Total 1036 ml 1050 ml Output Total 0 ml 200 ml 225 ml Balance 0 ml 836 ml 825 ml Nutrition Consultation Dietary Evaluation: Recommendations by RD: PPN/TPN Comments: continue PPN at this time Expected Outcomes/Goals: diet advancement/ tolerance Malnutrition Findings: Food and Nutrition Intake (Mod: <75% est energy req 7days Weight Status: Appropriate SYLVIA DORAN MD Mar 16, 2018 13:34
[2018-03-16] MEDS ORDERED: IV NORMAL SALINE 1000ML BAG 1,000 ML IV PRN ×2 (14:59)
[2018-03-16] MEDS ORDERED: DIALYSIS PATIENT. MC PRN ×2 (15:00)
[2018-03-16] MEDS ORDERED: ALBUMIN HUMAN 25% 200 ML IV PRN (15:00)
[2018-03-16] MEDS ORDERED: NOREPINEPHRIN 8MG/250ML PREMIX 250 ML IV PRN (16:00)
[2018-03-16 19:19] LABS: BASE EXCESS ABG -2 mmol/L (-3-3); HCO3 ABG 24 mmol/L (21-28); PCO2 ABG 47 mmHg (35-46); PO2 ABG 121 mmHg (75-108); SAT O2 ABG 98 % (92-99)
[2018-03-16 19:34] LABS: FIO2 ABG 36
--- NOTE | 2018-03-16 19:46 | NUR ---
Nursing Note Family wants to keep DNR/DNI; but continue aggressive measures. Patient has rested throughout the shift; Dilauded given Q4HRs per patient request. Patient has again refused turns. Family asked for blood to be given d/t hgb dropping 1gm to 7.3 overnight. Patient type and crossed; 1 unit PRBCs given with HD. Dialysis removed 1.5L; Low dose levophed started to maintain BP. Once dialysis complete- Patient suddenly became confused; agitated, and combative. She tried to pull out her NG, Bipap mask, Dialysis catheter and all monitoring equipment; "No, no, please stop, no more no more"...Tried to ask patient if she was "done" or wanted to be comfort care-- but due to her confusion it was difficult to determine. Her daughter and RN tried to gently restrain patient; Mitts applied; medications given-- see eMAR (Patient did nod 'yes' to pain) Stat ABG obtained; WNL; call to Dr. Grimaldo- standing order for precedex if needed. Family at bedside; upset about change in mental status. Pupils and strength equal and reactive. Report given to Servando TRAN RN
[2018-03-16] MEDS: POLYETHYLENE GLYCOL 3350 17 GM PACKET. PO SCH (20:59)
[2018-03-17] VITALS (24 sets, daily range): BP systolic 75–148; BP diastolic 42–91
[2018-03-17] MEDS: HYDROmorphone 2 MG/ML VIAL IV PRN ×2 (02:40→19:33)
[2018-03-17] MEDS: PIPERACILLIN/TAZOBACTAM 2.25 GM in IV NORMAL SALINE 50ML 50 ML IV SCH ×3 (06:02→21:46)
[2018-03-17] MEDS: AMINO AC 3%/ELECTROLYTE/GLYCER 1,000 ML IV SCH ×2 (06:02→17:49)
[2018-03-17 07:24] LABS: BASO # 0.1 x10^3/uL (0.0-0.2); BASO % 0 % (0-3); EOS % 0 % (0-3); HEMATOCRIT 27.4 % (36.0-47.0); HEMOGLOBIN 9.1 g/dL (12.0-15.5); LYMPH % 5 % (24-48); MEAN CORPUSCULAR HEMOGLOBIN 29 pg (25-35); MEAN CORPUSCULAR HGB CONC 33 g/dL (31-37); MEAN CORPUSCULAR VOLUME 89 fL (79-100); MONO # 0.9 x10^3/uL (0.0-1.1); MONO % 4 % (0-9); NEUT # 20.2 x10^3uL (1.8-7.7); NEUT % 91 % (31-73); PLATELET COUNT 371 x10^3/uL (140-400); RED BLOOD COUNT 3.09 x10^6/uL (3.50-5.40); RED CELL DISTRIBUTION WIDTH 18.7 % (11.5-14.5); WHITE BLOOD COUNT 22.2 x10^3/uL (4.0-11.0)
[2018-03-17 07:51] LABS: CALCIUM 8.6 mg/dL (8.5-10.1); CREATININE 2.8 mg/dL (0.6-1.0); GFR 17.4; POTASSIUM 4.6 mmol/L (3.5-5.1)
[2018-03-17] MEDS: CALCIUM ACETATE 667 MG CAPSULE PO SCH ×3 (08:00→17:00)
[2018-03-17] MEDS: CARVEDILOL 6.25 MG TABLET. PO SCH ×2 (08:00→17:00)
[2018-03-17] MEDS: FERROUS SULFATE ORAL 300 MG/5 ML SOLUTION. PO SCH (08:02)
[2018-03-17] MEDS: DEXAMETHASONE 4 MG TABLET PO SCH (08:02)
[2018-03-17] MEDS: cloNIDine HCL 0.1 MG TABLET PO SCH ×2 (08:02→21:00)
[2018-03-17] MEDS: SERTRALINE 50 MG TABLET. PO SCH (08:03)
[2018-03-17] MEDS: SENNOSIDES 8.6 MG TABLET PO SCH (08:03)
[2018-03-17] MEDS: MULTIVITAMIN with MINERAL TABLET. PO SCH (08:03)
[2018-03-17] MEDS: FLUTICASONE 50MCG/NASAL SPRAY 16GM BOTTLE. NS SCH (09:00)
--- NOTE | 2018-03-17 10:23 | PDOC ---
Infectious Disease Note Subjective Subjective No fevers last 24 hours Hypotensive, Levophed 2 mcg Venti -mask no BM PPN ROS ROS per HPI Vital Sign Vital Signs Vital Signs Date Time Temp Pulse Resp B/P (MAP) Pulse Ox O2 Delivery O2 Flow Rate FiO2 03/17/18 09:00 110 125/81 (96) 97 Venturi Mask 9.0 03/17/18 08:00 99.6 99.6 03/17/18 06:00 24 Physical Exam PHYSICAL EXAM GENERAL: Propped up in bed, weak appearing HEENT: Her pupils equal and reactive. Oral cavity dry NECK: Supple. LUNGS: Decreased in the bases. HEART: S1, S2. ABDOMEN: Mildly distended. + BS, soft EXTREMITIES: Without clubbing, cyanosis. 1+ lower extremity edema. SKIN: Warm to touch without any obvious rash. NEUROLOGIC: Awake, nonresponsive to questions Port & HDC clean Labs Lab Laboratory Tests Test 03/16/18 18:59 03/17/18 06:50 O2 Saturation 98 % (92-99) Arterial Blood pH 7.32 (7.35-7.45) Arterial Blood pCO2 at Patient Temp 47 mmHg (35-46) Arterial Blood pO2 at Patient Temp 121 mmHg (75-108) Arterial Blood HCO3 24 mmol/L (21-28) Arterial Blood Base Excess -2 mmol/L (-3-3) FiO2 36 White Blood Count 22.2 x10^3/uL (4.0-11.0) Red Blood Count 3.09 x10^6/uL (3.50-5.40) Hemoglobin 9.1 g/dL (12.0-15.5) Hematocrit 27.4 % (36.0-47.0) Mean Corpuscular Volume 89 fL (79-100) Mean Corpuscular Hemoglobin 29 pg (25-35) Mean Corpuscular Hemoglobin Concent 33 g/dL (31-37) Red Cell Distribution Width 18.7 % (11.5-14.5) Platelet Count 371 x10^3/uL (140-400) Neutrophils (%) (Auto) 91 % (31-73) Lymphocytes (%) (Auto) 5 % (24-48) Monocytes (%) (Auto) 4 % (0-9) Eosinophils (%) (Auto) 0 % (0-3) Basophils (%) (Auto) 0 % (0-3) Neutrophils # (Auto) 20.2 x10^3uL (1.8-7.7) Lymphocytes # (Auto) 1.0 x10^3/uL (1.0-4.8) Monocytes # (Auto) 0.9 x10^3/uL (0.0-1.1) Eosinophils # (Auto) 0.0 x10^3/uL (0.0-0.7) Basophils # (Auto) 0.1 x10^3/uL (0.0-0.2) Sodium Level 134 mmol/L (136-145) Potassium Level 4.6 mmol/L (3.5-5.1) Chloride Level 98 mmol/L (98-107) Carbon Dioxide Level 25 mmol/L (21-32) Anion Gap 11 (6-14) Blood Urea Nitrogen 57 mg/dL (7-20) Creatinine 2.8 mg/dL (0.6-1.0) Estimated GFR (Cockcroft-Gault) 17.4 Glucose Level 98 mg/dL (70-99) Calcium Level 8.6 mg/dL (8.5-10.1) Micro 03/12. BLOOD CULTURE Final VERY TINY GRAM NEGATIVE RODS, IN BOTH ANAEROBIC BOTTLES, 2 OF 4,TWO SETS DRAWN. THIS BOTTLE ALSO HAS FEW LARGER GRAM NEATIVE RODS, SUGGESTIVE OF ENTERICS, WELL. 03/14. BLOOD CULTURE Preliminary NO GROWTH AFTER 3 DAYS 03/08. abdominal fluid ANAEROBIC RES 1 Final Bacteroides fragilis Objective Assessment Acute Resp Failure, Pleurx out Leukocytosis - on Steroids Peritonitis - Bacteroides Mar 08 GNR sepsis - 03/12 Tiny GNR - likely anaerobes. larger rods also -ID still pending. Repeat 03/14 neg so far Metastatic ovarian cancer, Ascites s/p paracentesis - Bacteroides fragilis ESRD on HD Ileus/partial SBO LE Doppler neg 03/14 Plan Plan of Care Cont Zosyn Vanc times one 03/14 May need port and HD cath removed F/u labs Critically ill D/w nursing D/w Await Palliative decisions Attending Co-Sign The patient was seen and interviewed as well as examined at the bedside. The chart was reviewed. The case was discussed. Agree with the plan of care. MARIANNA BHAT APRN Mar 17, 2018 10:23 LISA OLIVER MD Mar 17, 2018 12:53
--- NOTE | 2018-03-17 13:36 | PDOC ---
PULMONARY PROGRESS NOTES Subjective clinically improving off BIPAP Vitals Vital Signs Date Time Temp Pulse Resp B/P (MAP) Pulse Ox O2 Delivery O2 Flow Rate FiO2 03/17/18 11:01 107 28 125/77 (93) 91 Room Air 03/17/18 10:00 9.0 03/17/18 08:00 99.6 99.6 General: Alert, No acute distress Lungs: Other (decrease bs) Cardiovascular: S1 Abdomen: Soft Neuro Exam: Alert Extremities: Other (1+edema) Skin: Warm Labs Laboratory Tests Test 03/16/18 05:00 03/16/18 08:00 03/16/18 18:59 03/17/18 06:50 White Blood Count 20.2 x10^3/uL (4.0-11.0) 22.2 x10^3/uL (4.0-11.0) Red Blood Count 2.68 x10^6/uL (3.50-5.40) 3.09 x10^6/uL (3.50-5.40) Hemoglobin 7.3 g/dL (12.0-15.5) 9.1 g/dL (12.0-15.5) Hematocrit 24.2 % (36.0-47.0) 27.4 % (36.0-47.0) Mean Corpuscular Volume 91 fL (79-100) 89 fL (79-100) Mean Corpuscular Hemoglobin 27 pg (25-35) 29 pg (25-35) Mean Corpuscular Hemoglobin Concent 30 g/dL (31-37) 33 g/dL (31-37) Red Cell Distribution Width 20.5 % (11.5-14.5) 18.7 % (11.5-14.5) Platelet Count 309 x10^3/uL (140-400) 371 x10^3/uL (140-400) Neutrophils (%) (Auto) 94 % (31-73) 91 % (31-73) Lymphocytes (%) (Auto) 2 % (24-48) 5 % (24-48) Monocytes (%) (Auto) 4 % (0-9) 4 % (0-9) Eosinophils (%) (Auto) 0 % (0-3) 0 % (0-3) Basophils (%) (Auto) 0 % (0-3) 0 % (0-3) Neutrophils # (Auto) 18.9 x10^3uL (1.8-7.7) 20.2 x10^3uL (1.8-7.7) Lymphocytes # (Auto) 0.4 x10^3/uL (1.0-4.8) 1.0 x10^3/uL (1.0-4.8) Monocytes # (Auto) 0.9 x10^3/uL (0.0-1.1) 0.9 x10^3/uL (0.0-1.1) Eosinophils # (Auto) 0.0 x10^3/uL (0.0-0.7) 0.0 x10^3/uL (0.0-0.7) Basophils # (Auto) 0.0 x10^3/uL (0.0-0.2) 0.1 x10^3/uL (0.0-0.2) Segmented Neutrophils % 81 % (35-66) Band Neutrophils % 13 % (0-9) Monocytes % 3 % (0-10) Eosinophils % 1 % (0-5) Metamyelocytes % 1 % (0-0) Myelocytes % 1 % (0-0) Nucleated Red Blood Cells 3 Toxic Granulation Present Platelet Estimate Adequate (ADEQUATE) Large Platelets Present Giant Platelets Present Basophilic Stippling Present Anisocytosis Mod Sodium Level 134 mmol/L (136-145) 134 mmol/L (136-145) Potassium Level 5.7 mmol/L (3.5-5.1) 4.6 mmol/L (3.5-5.1) Chloride Level 95 mmol/L (98-107) 98 mmol/L (98-107) Carbon Dioxide Level 25 mmol/L (21-32) 25 mmol/L (21-32) Anion Gap 14 (6-14) 11 (6-14) Blood Urea Nitrogen 103 mg/dL (7-20) 57 mg/dL (7-20) Creatinine 4.4 mg/dL (0.6-1.0) 2.8 mg/dL (0.6-1.0) Estimated GFR (Cockcroft-Gault) 10.3 17.4 Glucose Level 101 mg/dL (70-99) 98 mg/dL (70-99) Calcium Level 8.5 mg/dL (8.5-10.1) 8.6 mg/dL (8.5-10.1) O2 Saturation 97 % (92-99) 98 % (92-99) Arterial Blood pH 7.16 (7.35-7.45) 7.32 (7.35-7.45) Arterial Blood pCO2 at Patient Temp 66 mmHg (35-46) 47 mmHg (35-46) Arterial Blood pO2 at Patient Temp 125 mmHg (75-108) 121 mmHg (75-108) Arterial Blood HCO3 23 mmol/L (21-28) 24 mmol/L (21-28) Arterial Blood Base Excess -6 mmol/L (-3-3) -2 mmol/L (-3-3) FiO2 50 36 Laboratory Tests Test 03/16/18 18:59 03/17/18 06:50 O2 Saturation 98 % (92-99) Arterial Blood pH 7.32 (7.35-7.45) Arterial Blood pCO2 at Patient Temp 47 mmHg (35-46) Arterial Blood pO2 at Patient Temp 121 mmHg (75-108) Arterial Blood HCO3 24 mmol/L (21-28) Arterial Blood Base Excess -2 mmol/L (-3-3) FiO2 36 White Blood Count 22.2 x10^3/uL (4.0-11.0) Red Blood Count 3.09 x10^6/uL (3.50-5.40) Hemoglobin 9.1 g/dL (12.0-15.5) Hematocrit 27.4 % (36.0-47.0) Mean Corpuscular Volume 89 fL (79-100) Mean Corpuscular Hemoglobin 29 pg (25-35) Mean Corpuscular Hemoglobin Concent 33 g/dL (31-37) Red Cell Distribution Width 18.7 % (11.5-14.5) Platelet Count 371 x10^3/uL (140-400) Neutrophils (%) (Auto) 91 % (31-73) Lymphocytes (%) (Auto) 5 % (24-48) Monocytes (%) (Auto) 4 % (0-9) Eosinophils (%) (Auto) 0 % (0-3) Basophils (%) (Auto) 0 % (0-3) Neutrophils # (Auto) 20.2 x10^3uL (1.8-7.7) Lymphocytes # (Auto) 1.0 x10^3/uL (1.0-4.8) Monocytes # (Auto) 0.9 x10^3/uL (0.0-1.1) Eosinophils # (Auto) 0.0 x10^3/uL (0.0-0.7) Basophils # (Auto) 0.1 x10^3/uL (0.0-0.2) Sodium Level 134 mmol/L (136-145) Potassium Level 4.6 mmol/L (3.5-5.1) Chloride Level 98 mmol/L (98-107) Carbon Dioxide Level 25 mmol/L (21-32) Anion Gap 11 (6-14) Blood Urea Nitrogen 57 mg/dL (7-20) Creatinine 2.8 mg/dL (0.6-1.0) Estimated GFR (Cockcroft-Gault) 17.4 Glucose Level 98 mg/dL (70-99) Calcium Level 8.6 mg/dL (8.5-10.1) Medications Active Scripts Medications Dose Route/Sig Max Daily Dose Days Date Category Zoloft (Sertraline Hcl) 100 Mg Tablet 150 Mg PO DAILY 03/06/18 Reported Senna Lax (Sennosides) 8.6 Mg Tablet 8.6 Mg PO DAILY 03/06/18 Reported Proair Hfa (Albuterol Sulfate) 8.5 Gm Hfa.aer.ad 2 Puff INH PRN Q6HRS PRN 03/06/18 Reported Miralax (Polyethylene Glycol 3350) 17 Gm Powd.pack 1 Pkt PO HS 03/06/18 Reported Oxycodone Hcl 5 Mg Capsule 20 Mg PO PRN Q4HRS PRN 03/06/18 Reported Oxycodone Hcl 5 Mg Capsule 10 Mg PO PRN Q4HRS PRN 03/06/18 Reported Ondansetron Odt (Ondansetron) 4 Mg Tab.rapdis 8 Mg PO PRN Q8HRS PRN 03/06/18 Reported One-Daily Multi-Vitamin (Multivitamin) 1 Each Tablet 1 Each PO HS 03/06/18 Reported Melatonin 3 Mg Tablet 1 Tab PO QHS 03/06/18 Reported Ativan (Lorazepam) 0.5 Mg Tablet 0.5 Mg PO PRN Q12HRS PRN 1/1/19 Reported Guaifenesin-Codeine Syrup (Guaifenesin/Codeine Phosphate) 118 Ml Liquid 10 Ml PO PRN Q4HRS PRN 03/06/18 Reported Flonase Allergy Relief (Fluticasone Propionate) 9.9 Ml [place].susp 1 Sprays NS DAILY 03/06/18 Reported FENTANYL 50mcg/hr (Fentanyl) 1 Each Patch.td72 1 Patch TP Q3DAYS 03/06/18 Reported Famotidine 40 Mg Tablet 20 Mg PO HS 03/06/18 Reported Dexamethasone 4 Mg Tablet 4 Tab PO DAILY 03/06/18 Reported Clonidine Hcl 0.1 Mg Tablet 0.1 Mg PO BID 03/06/18 Reported Carvedilol 25 Mg Tablet 6.25 Mg PO BIDWMEALS 03/06/18 Reported Calcium Acetate 667 Mg Tablet 667 Mg PO TIDWMEALS 03/06/18 Reported Impression . 1. Progressive hypercapnic and hypoxic respiratory failure secondary to multifactorial etiologies. The patient had progressive metastatic ovarian cancer with ongoing congestive heart failure and bilateral effusions, suspected extreme weakness contributing to hypercapnia as well. off BIPAP now 2. End-stage renal disease, on hemodialysis. 3. Metastatic ovarian cancer. 4. History of subdural hematoma. 5. History of gastroesophageal reflux disease. 6. Non-ST elevation myocardial infarction. 7. Depression. 8. Hyperlipidemia. Plan . 1. Clinically improved. Met/ Resp acidosis improved. 2. prn BiPAP. 3. HD per renal 4. Follow ABGs prn 5. Continue antibiotics. 6. Venous Dopplers are negative. 7. Supportive care and follow recommendations of Renal and Oncology. 8. DVT prophylaxis. 9. Stress ulcer prophylaxis. 10. Discussed with RN and RT RAEGAN MERCHANT MD Mar 17, 2018 13:36
[2018-03-17] MEDS: PANTOPRAZOLE IV PUSH 40 MG VIAL. IVP SCH (15:33)
[2018-03-17] MEDS: HEPARIN for SUB-Q USE 5,000 UNIT/ML VIAL. SQ SCH ×2 (15:35→21:47)
--- NOTE | 2018-03-17 16:36 | RAD ---
AP portable abdomen 03/17/2018. Reason for exam: Small bowel obstruction. Comparison is made with a film of 03/14/2018. An NG tube remains in the stomach. Gas is seen in the colon and small bowel. There is some small bowel distention similar to the prior exam. There is relatively little gas in the pelvis, similar to the prior exam. No abnormal masses or gas collections are seen. IMPRESSION: Small bowel distention, similar to the prior study. Electronically signed by: Jordy Alexandra Jr., MD (03/17/2018 4:31 PM) [facility] [place]
--- NOTE | 2018-03-17 18:48 | NUR ---
7A BM x1 lg,soft formed w liquid. Foul odor. Pain med x1 per request. Very stoic ... few complaints. Skin care q 3 H when removed from bedpan. Heels noted to be ed/blanchable. Special care to 'float when supine. alternated venti mask and RA w sats 93-98%. Cont poc at this time as family 'adamant on doing all Rx as long as their is results ie dialysis.
[2018-03-17] MEDS: POLYETHYLENE GLYCOL 3350 17 GM PACKET. PO SCH (21:00)
--- NOTE | 2018-03-17 22:03 | PDOC ---
PROGRESS NOTES Chief Complaint Chief Complaint Acute hypoxemic respiratory failure failing Bipap, prognosis very grim given metastatic OC Ovarian Cancer, METASTATIC End Stage Renal Disease, HD dependent Tachycardia small bowel obstruction by ct-->KUB today Ascites - s/p paracentesis (800cc) History of Present Illness History of Present Illness patient lying in bed in moderate distress, complaining of pain, still on bipap which now is starting to create pressure ulcers from the mask, discussed at length with who seems keen on continuing dialysis despite several discussions with myself the consultants in palliative care. Patient has very poor prognosis and I have tried to explain the importance of providing comfort and dignity to the patient especially since she is on most likely her last basal nurse. I have assured him that we will provide him with all the necessary pieces of information so he can make the best decision for the patient since he is the DURABLE POWER OF PATENT PARALEGAL and healthcare surrogate Vitals Vitals Vital Signs Date Time Temp Pulse Resp B/P (MAP) Pulse Ox O2 Delivery O2 Flow Rate FiO2 03/17/18 21:00 110 107/69 03/17/18 20:03 28 94 Room Air 03/17/18 18:00 9.0 03/17/18 17:00 98.9 98.9 Physical Exam Physical Exam GENERAL: Propped up in bed, weak appearing HEENT: Her pupils equal and reactive. Oral cavity dry NECK: Supple. LUNGS: Decreased in the bases. HEART: S1, S2. ABDOMEN: Mildly distended. + BS, soft EXTREMITIES: Without clubbing, cyanosis. 1+ lower extremity edema. SKIN: Warm to touch without any obvious rash. NEUROLOGIC: Awake, nonresponsive to questions Port & HDC clean General: Alert, Oriented X3, Cooperative, No acute distress, moderate distress Heart: Regular rate, Normal S1, Normal S2, No murmurs, Gallops, Other (TACHY RATE 116) Lungs: Other (decrease bs) Abdomen: Normal bowel sounds, Soft, No tenderness, No hepatosplenomegaly, No masses Extremities: No clubbing, No cyanosis, Normal pulses, No tenderness/swelling, Other (3+ edema) Labs LABS Laboratory Tests Test 03/17/18 06:50 White Blood Count 22.2 x10^3/uL (4.0-11.0) Red Blood Count 3.09 x10^6/uL (3.50-5.40) Hemoglobin 9.1 g/dL (12.0-15.5) Hematocrit 27.4 % (36.0-47.0) Mean Corpuscular Volume 89 fL (79-100) Mean Corpuscular Hemoglobin 29 pg (25-35) Mean Corpuscular Hemoglobin Concent 33 g/dL (31-37) Red Cell Distribution Width 18.7 % (11.5-14.5) Platelet Count 371 x10^3/uL (140-400) Neutrophils (%) (Auto) 91 % (31-73) Lymphocytes (%) (Auto) 5 % (24-48) Monocytes (%) (Auto) 4 % (0-9) Eosinophils (%) (Auto) 0 % (0-3) Basophils (%) (Auto) 0 % (0-3) Neutrophils # (Auto) 20.2 x10^3uL (1.8-7.7) Lymphocytes # (Auto) 1.0 x10^3/uL (1.0-4.8) Monocytes # (Auto) 0.9 x10^3/uL (0.0-1.1) Eosinophils # (Auto) 0.0 x10^3/uL (0.0-0.7) Basophils # (Auto) 0.1 x10^3/uL (0.0-0.2) Sodium Level 134 mmol/L (136-145) Potassium Level 4.6 mmol/L (3.5-5.1) Chloride Level 98 mmol/L (98-107) Carbon Dioxide Level 25 mmol/L (21-32) Anion Gap 11 (6-14) Blood Urea Nitrogen 57 mg/dL (7-20) Creatinine 2.8 mg/dL (0.6-1.0) Estimated GFR (Cockcroft-Gault) 17.4 Glucose Level 98 mg/dL (70-99) Calcium Level 8.6 mg/dL (8.5-10.1) Assessment and Plan Assessmemt and Plan Problems Medical Problems: (1) Dialysis catheter clot or failure Status: Acute (2) Serum potassium elevated Status: Acute Comment Review of Relevant I have reviewed the following items arden (where applicable) has been applied. Labs Laboratory Tests Test 03/16/18 05:00 03/16/18 08:00 1/11/19 18:59 03/17/18 06:50 White Blood Count 20.2 x10^3/uL (4.0-11.0) 22.2 x10^3/uL (4.0-11.0) Red Blood Count 2.68 x10^6/uL (3.50-5.40) 3.09 x10^6/uL (3.50-5.40) Hemoglobin 7.3 g/dL (12.0-15.5) 9.1 g/dL (12.0-15.5) Hematocrit 24.2 % (36.0-47.0) 27.4 % (36.0-47.0) Mean Corpuscular Volume 91 fL (79-100) 89 fL (79-100) Mean Corpuscular Hemoglobin 27 pg (25-35) 29 pg (25-35) Mean Corpuscular Hemoglobin Concent 30 g/dL (31-37) 33 g/dL (31-37) Red Cell Distribution Width 20.5 % (11.5-14.5) 18.7 % (11.5-14.5) Platelet Count 309 x10^3/uL (140-400) 371 x10^3/uL (140-400) Neutrophils (%) (Auto) 94 % (31-73) 91 % (31-73) Lymphocytes (%) (Auto) 2 % (24-48) 5 % (24-48) Monocytes (%) (Auto) 4 % (0-9) 4 % (0-9) Eosinophils (%) (Auto) 0 % (0-3) 0 % (0-3) Basophils (%) (Auto) 0 % (0-3) 0 % (0-3) Neutrophils # (Auto) 18.9 x10^3uL (1.8-7.7) 20.2 x10^3uL (1.8-7.7) Lymphocytes # (Auto) 0.4 x10^3/uL (1.0-4.8) 1.0 x10^3/uL (1.0-4.8) Monocytes # (Auto) 0.9 x10^3/uL (0.0-1.1) 0.9 x10^3/uL (0.0-1.1) Eosinophils # (Auto) 0.0 x10^3/uL (0.0-0.7) 0.0 x10^3/uL (0.0-0.7) Basophils # (Auto) 0.0 x10^3/uL (0.0-0.2) 0.1 x10^3/uL (0.0-0.2) Segmented Neutrophils % 81 % (35-66) Band Neutrophils % 13 % (0-9) Monocytes % 3 % (0-10) Eosinophils % 1 % (0-5) Metamyelocytes % 1 % (0-0) Myelocytes % 1 % (0-0) Nucleated Red Blood Cells 3 Toxic Granulation Present Platelet Estimate Adequate (ADEQUATE) Large Platelets Present Giant Platelets Present Basophilic Stippling Present Anisocytosis Mod Sodium Level 134 mmol/L (136-145) 134 mmol/L (136-145) Potassium Level 5.7 mmol/L (3.5-5.1) 4.6 mmol/L (3.5-5.1) Chloride Level 95 mmol/L (98-107) 98 mmol/L (98-107) Carbon Dioxide Level 25 mmol/L (21-32) 25 mmol/L (21-32) Anion Gap 14 (6-14) 11 (6-14) Blood Urea Nitrogen 103 mg/dL (7-20) 57 mg/dL (7-20) Creatinine 4.4 mg/dL (0.6-1.0) 2.8 mg/dL (0.6-1.0) Estimated GFR (Cockcroft-Gault) 10.3 17.4 Glucose Level 101 mg/dL (70-99) 98 mg/dL (70-99) Calcium Level 8.5 mg/dL (8.5-10.1) 8.6 mg/dL (8.5-10.1) O2 Saturation 97 % (92-99) 98 % (92-99) Arterial Blood pH 7.16 (7.35-7.45) 7.32 (7.35-7.45) Arterial Blood pCO2 at Patient Temp 66 mmHg (35-46) 47 mmHg (35-46) Arterial Blood pO2 at Patient Temp 125 mmHg (75-108) 121 mmHg (75-108) Arterial Blood HCO3 23 mmol/L (21-28) 24 mmol/L (21-28) Arterial Blood Base Excess -6 mmol/L (-3-3) -2 mmol/L (-3-3) FiO2 50 36 Laboratory Tests Test 03/17/18 06:50 White Blood Count 22.2 x10^3/uL (4.0-11.0) Red Blood Count 3.09 x10^6/uL (3.50-5.40) Hemoglobin 9.1 g/dL (12.0-15.5) Hematocrit 27.4 % (36.0-47.0) Mean Corpuscular Volume 89 fL (79-100) Mean Corpuscular Hemoglobin 29 pg (25-35) Mean Corpuscular Hemoglobin Concent 33 g/dL (31-37) Red Cell Distribution Width 18.7 % (11.5-14.5) Platelet Count 371 x10^3/uL (140-400) Neutrophils (%) (Auto) 91 % (31-73) Lymphocytes (%) (Auto) 5 % (24-48) Monocytes (%) (Auto) 4 % (0-9) Eosinophils (%) (Auto) 0 % (0-3) Basophils (%) (Auto) 0 % (0-3) Neutrophils # (Auto) 20.2 x10^3uL (1.8-7.7) Lymphocytes # (Auto) 1.0 x10^3/uL (1.0-4.8) Monocytes # (Auto) 0.9 x10^3/uL (0.0-1.1) Eosinophils # (Auto) 0.0 x10^3/uL (0.0-0.7) Basophils # (Auto) 0.1 x10^3/uL (0.0-0.2) Sodium Level 134 mmol/L (136-145) Potassium Level 4.6 mmol/L (3.5-5.1) Chloride Level 98 mmol/L (98-107) Carbon Dioxide Level 25 mmol/L (21-32) Anion Gap 11 (6-14) Blood Urea Nitrogen 57 mg/dL (7-20) Creatinine 2.8 mg/dL (0.6-1.0) Estimated GFR (Cockcroft-Gault) 17.4 Glucose Level 98 mg/dL (70-99) Calcium Level 8.6 mg/dL (8.5-10.1) Microbiology 03/14/18 Blood Culture - Preliminary, Resulted NO GROWTH AFTER 3 DAYS 03/08/18 Anaerobic/Aerobic Culture - Final, Complete 03/08/18 Anaerobic Culture Result 1 (TIMOTHY) - Final, Complete 03/08/18 Aerobic Culture - Final, Complete 03/08/18 Aerobic Culture Result 1 (TIMOTHY) - Final, Complete 03/08/18 Gram Stain - Final, Complete 03/08/18 Gram Stain Result 1 (TIMOTHY) - Final, Complete 03/08/18 Gram Stain Result 2 (TIMOTHY) - Final, Complete Medications Current Medications Ondansetron HCl (Zofran) 4 mg PRN Q8HRS PRN IV NAUSEA/VOMITING Last administered on 03/06/18at 05:34; Start 03/05/18 at 22:00; Stop 03/06/18 at 21:59 ; Status DC Fentanyl Citrate (Fentanyl 2ml Vial) 50 mcg PRN Q1HR PRN IV PAIN Last administered on 03/06/18at 05:35; Start 03/05/18 at 22:00; Stop 03/06/18 at 21:59 ; Status DC Calcium Gluconate (Calcium Gluconate) 1,000 mg 1X ONCE IVP Last administered on 03/05/18at 23:23; Start 03/05/18 at 22:15; Stop 03/05/18 at 22:16; Status DC Sodium Bicarbonate (Sodium Bicarb Adult 8.4% Syr) 50 meq 1X ONCE IV Last administered on 03/05/18at 23:23; Start 03/05/18 at 22:15; Stop 03/05/18 at 22 :16; Status DC Sodium Polystyrene Sulfonate (Kayexalate) 30 gm 1X ONCE PO Last administered on 03/05/18at 23:23; Start 03/05/18 at 22:15; Stop 03/05/18 at 22:16; Status DC Ondansetron HCl (Zofran) 4 mg 1X ONCE IV Last administered on 03/05/18at 22:55 ; Start 03/05/18 at 22:45; Stop 03/05/18 at 22:55; Status DC Prochlorperazine Edisylate (Compazine) 10 mg PRN Q6HRS PRN IM NAUSEA/VOMITING; Start 03/06/18 at 06:15; Stop 03/06/18 at 12:32; Status DC Oxycodone HCl (Roxicodone) 10 mg PRN Q4HRS PRN PO MILD - MODERATE PAIN Last administered on 03/11/18at 00:24; Start 03/06/18 at 06:15 Oxycodone HCl (Roxicodone) 20 mg PRN Q4HRS PRN PO SEVERE PAIN; Start 03/06/18 at 06:15 Lidocaine/ Epinephrine (LIDOCAINE 1%-EPI 1:100,000 Multi-Dose) 20 ml STK-MED ONCE .ROUTE ; Start 03/06/18 at 09:11; Stop 03/06/18 at 09:12; Status DC Cefazolin Sodium 50 ml @ As Directed STK-MED ONCE IV ; Start 03/06/18 at 09:34; Stop 03/06/18 at 09:35; Status DC Midazolam HCl (Versed) 2 mg STK-MED ONCE .ROUTE ; Start 03/06/18 at 09:34; Stop 03/06/18 at 09:35; Status DC Fentanyl Citrate (Fentanyl 2ml Vial) 100 mcg STK-MED ONCE .ROUTE ; Start at 09:34; Stop 03/06/18 at 09:35; Status DC Heparin Sodium (Porcine) (Heparin Sodium) 10,000 unit STK-MED ONCE .ROUTE ; Start 03/06/18 at 09:44; Stop 03/06/18 at 09:46; Status DC Midazolam HCl (Versed) 2 mg 1X ONCE IV Last administered on 03/06/18at 10:11; Start 03/06/18 at 10:30; Stop 03/06/18 at 10:35; Status DC Fentanyl Citrate (Fentanyl 2ml Vial) 100 mcg 1X ONCE IV Last administered on at 10:11; Start 03/06/18 at 10:30; Stop 03/06/18 at 10:35; Status DC Lidocaine/ Epinephrine (LIDOCAINE 1%-EPI 1:100,000 Multi-Dose) 20 ml 1X ONCE IJ Last administered on 03/06/18at 10:09; Start 03/06/18 at 10:30; Stop 03/06/18 at 10:35; Status DC Cefazolin Sodium 50 ml @ 100 mls/hr 1X ONCE IV Last administered on 03/06/18at 10:11; Start 03/06/18 at 10:30; Stop 03/06/18 at 10:59; Status DC Heparin Sodium (Porcine) (Heparin Sodium) 4,200 unit 1X ONCE INT CAT Last administered on 03/06/18at 10:11; Start 03/06/18 at 10:30; Stop 03/06/18 at 10:35; Status DC Clonidine HCl (Catapres) 0.1 mg BID PO Last administered on 03/10/18at 21:05; Start 03/06/18 at 12:00 Dexamethasone (Decadron) 16 mg DAILY PO Last administered on 03/07/18at 13:12; Start 03/06/18 at 12:00; Stop 03/08/18 at 09:00; Status DC Fentanyl (Duragesic 50mcg/ Hr Patch) 1 patch Q3DAYS TD ; Start 03/06/18 at 21:00 ; Stop 03/06/18 at 21:05; Status DC Lorazepam (Ativan) 0.5 mg PRN Q12HRS PRN PO ANXIETY / AGITATION; Start 03/06/18 at 11:30 Ondansetron HCl (Zofran Odt) 8 mg PRN Q8HRS PRN PO NAUSEA/VOMITING Last administered on 03/11/18at 01:41; Start 03/06/18 at 11:30 Calcium Acetate (Phoslo) 667 mg TIDWMEALS PO Last administered on 03/09/18at 12: 09; Start 03/06/18 at 12:00 Carvedilol (Coreg) 6.25 mg BIDWMEALS PO Last administered on 03/10/18at 18:35; Start 03/06/18 at 12:00 Famotidine (Pepcid) 20 mg QHS PO Last administered on 03/06/18at 20:51; Start 03/06/18 at 21:00; Stop 03/07/18 at 13:15; Status DC Fluticasone Propionate (Flonase) 1 spray DAILY NS Last administered on at 12:16; Start 03/06/18 at 12:00 Guaifenesin/ Codeine Phosphate (Robitussin Ac) 10 ml PRN Q4HRS PRN PO COUGH; Start 03/06/18 at 11:45 Non-Formulary Medication (Melatonin ) 1 tab QHS PO ; Start 03/06/18 at 21:00; Status UNV Multivitamins (Thera M Plus) 1 tab DAILY PO Last administered on 03/09/18 08:20 ; Start 03/06/18 at 12:00 Polyethylene Glycol (miraLAX PACKET) 17 gm QHS PO Last administered on 21:04; Start 03/06/18 at 21:00 Sennosides (Senna) 8.6 mg DAILY PO Last administered on 03/09/18 08:20; Start 03/06/18 at 12:00 Sertraline HCl (Zoloft) 150 mg DAILY PO Last administered on 03/09/18 08:20; Start 03/06/18 at 12:00 Prochlorperazine Edisylate (Compazine) 10 mg PRN Q6HRS PRN IV NAUSEA/VOMITING Last administered on 03/15/18 07:03; Start 03/06/18 at 12:45 Darbepoetin Taran (Aranesp) 60 mcg [id number] SQ Last administered on 03/13/18 21: 03; Start 03/06/18 at 21:00 Magnesium Sulfate 50 ml @ 25 mls/hr PRN DAILY PRN IV for Mag < 1.7 on am labs; Start 03/06/18 at 13:45 Sodium Chloride 1,000 ml @ 1,000 mls/hr Q1H PRN IV hypotension; Start 03/06/18 at 12:30; Stop 03/06/18 at 18:29; Status DC Sodium Chloride 1,000 ml @ 400 mls/hr Q2H30M PRN IV PATENCY; Start 03/06/18 at 12:30; Stop 03/06/18 at 20:00; Status DC Info (PHARMACY MONITORING -- do not chart) 1 each PRN DAILY PRN MC SEE COMMENTS ; Start 03/06/18 at 15:00; Status UNV Info (PHARMACY MONITORING -- do not chart) 1 each PRN DAILY PRN MC SEE COMMENTS ; Start 03/06/18 at 15:00; Stop 03/07/18 at 16:17; Status DC Fentanyl (Duragesic 50mcg/ Hr Patch) 1 patch Q72H TD Last administered on at 20:46; Start 03/06/18 at 21:30 Sodium Chloride 1,000 ml @ 1,000 mls/hr Q1H PRN IV hypotension; Start 03/07/18 at 07:51; Stop 03/07/18 at 13:50; Status DC Albumin Human 200 ml @ 200 mls/hr 1X PRN PRN IV Hypotension; Start 03/07/18 at 08:00; Stop 03/07/18 at 13:59; Status DC Sodium Chloride 1,000 ml @ 400 mls/hr Q2H30M PRN IV PATENCY; Start 03/07/18 at 07:51; Stop 03/07/18 at 19:50; Status DC Info (PHARMACY MONITORING -- do not chart) 1 each PRN DAILY PRN MC SEE COMMENTS ; Start 03/07/18 at 08:00; Stop 03/09/18 at 18:51; Status DC Info (PHARMACY MONITORING -- do not chart) 1 each PRN DAILY PRN MC SEE COMMENTS ; Start 03/07/18 at 08:00; Status UNV Dexamethasone (Decadron) 12 mg DAILY PO ; Start 03/07/18 at 09:30; Stop 03/07/18 at 09:33; Status DC Dexamethasone (Decadron) 12 mg DAILY PO Last administered on 03/09/18at 08:20; Start 03/09/18 at 09:00; Stop 03/13/18 at 09:17; Status DC Pantoprazole Sodium (Protonix) 40 mg DAILYAC PO ; Start 03/08/18 at 07:30; Stop 03/08/18 at 07:30; Status DC Pantoprazole Sodium (PROTONIX VIAL for IV PUSH) 40 mg DAILYAC IVP Last administered on 03/09/18at 08:19; Start 03/08/18 at 07:30; Stop 03/09/18 at 12:24; Status DC Ferrous Sulfate (Iron Oral Solution) 300 mg DAILY PO Last administered on at 08:20; Start 03/08/18 at 10:30 Albumin Human 100 ml @ 100 mls/hr Q6HRS IV Last administered on 03/09/18at 17:28 ; Start 03/08/18 at 12:00; Stop 03/09/18 at 18:59; Status DC Sodium Chloride 1,000 ml @ 1,000 mls/hr Q1H PRN IV hypotension; Start 03/08/18 at 15:00; Stop 03/08/18 at 21:21; Status DC Sodium Chloride (Normal Saline Flush) 10 ml 1X PRN PRN IV AP catheter pack; Start 03/08/18 at 15:00; Stop 03/09/18 at 14:59; Status DC Sodium Chloride (Normal Saline Flush) 10 ml 1X PRN PRN IV PRODUCTION ASSISTANT catheter pack; Start 03/08/18 at 15:00; Stop 03/09/18 at 14:59; Status DC Info (PHARMACY MONITORING -- do not chart) 1 each PRN DAILY PRN MC SEE COMMENTS ; Start 03/08/18 at 21:15; Status Cancel Info (PHARMACY MONITORING -- do not chart) 1 each PRN DAILY PRN MC SEE COMMENTS ; Start 03/08/18 at 21:15 Pantoprazole Sodium (Protonix) 40 mg DAILYAC PO Last administered on 03/10/18at 08:20; Start 03/09/18 at 16:30; Stop 03/12/18 at 10:38; Status DC Sodium Chloride 1,000 ml @ 1,000 mls/hr Q1H PRN IV hypotension; Start 03/10/18 at 08:30; Stop 03/10/18 at 14:29; Status DC Sodium Chloride 1,000 ml @ 400 mls/hr Q2H30M PRN IV PATENCY; Start 03/10/18 at 08:30; Stop 03/10/18 at 20:29; Status DC Info (PHARMACY MONITORING -- do not chart) 1 each PRN DAILY PRN MC SEE COMMENTS ; Start 03/10/18 at 10:15; Status UNV Info (PHARMACY MONITORING -- do not chart) 1 each PRN DAILY PRN MC SEE COMMENTS ; Start 03/10/18 at 10:15; Status UNV Alteplase, Recombinant (Cathflo) 2 mg 1X ONCE INT CAT Last administered on 03/10at 14:04; Start 03/10/18 at 11:45; Stop 03/10/18 at 11:46; Status DC Amino Acids/ Glycerin/ Electrolytes 1,000 ml @ 80 mls/hr [id number] IV Last administered on 03/17/18at 17:49; Start 03/10/18 at 20:00 Alteplase, Recombinant (Cathflo) 2 mg 1X ONCE INT CAT Last administered on 03/10at 21:05; Start 03/10/18 at 20:00; Stop 03/10/18 at 20:16; Status DC Metoprolol Tartrate (Lopressor Vial) 5 mg 1X ONCE IVP Last administered on 03/11at 12:01; Start 03/11/18 at 12:00; Stop 03/11/18 at 12:01; Status DC Hydromorphone HCl (Dilaudid) 1 mg PRN Q4HRS PRN IV PAIN Last administered on 02/21at 19:33; Start 03/11/18 at 11:45 Sodium Chloride 500 ml @ 500 mls/hr 1X ONCE IV Last administered on 03/11/18at 12:02; Start 03/11/18 at 11:45; Stop 03/11/18 at 12:45; Status DC Metoprolol Tartrate (Lopressor Vial) 5 mg Q6HRS IVP ; Start 03/11/18 at 18:00; Stop 03/11/18 at 18:00; Status DC Alteplase, Recombinant (Cathflo) 2 mg 1X ONCE INT CAT ; Start 03/11/18 at 18:00 ; Stop 03/11/18 at 18:01; Status DC Metoprolol Tartrate (Lopressor Vial) 5 mg Q6HRS PRN IVP TACHYCARDIA Last administered on 03/14/18at 05:28; Start 03/11/18 at 18:00 Heparin Sodium (Porcine) (Hep Lock Adult) 500 unit 1X ONCE IV Last administered on 03/11/18at 18:20; Start 03/11/18 at 18:00; Stop 03/11/18 at 18:01; Status DC Acetaminophen (Tylenol Supp) 650 mg PRN Q6HRS PRN [place] MILD PAIN / TEMP Last administered on 03/12/18at 09:27; Start 03/12/18 at 08:45 Throat Lozenges (Chloraseptic) 1 spray PRN Q2HR PRN PO SORE THROAT Last administered on 03/12/18at 09:26; Start 03/12/18 at 08:45 Pantoprazole Sodium (PROTONIX VIAL for IV PUSH) 40 mg DAILYAC IVP Last administered on 03/17/18at 15:33; Start 03/13/18 at 07:30 Dexamethasone (Decadron) 8 mg DAILY PO ; Start 03/13/18 at 09:30 Ceftriaxone Sodium (Rocephin) 1 gm Q24H IVP ; Start 03/13/18 at 10:30; Stop at 10:34; Status DC Piperacillin Sod/ Tazobactam Sod 3.375 gm/Sodium Chloride 50 ml @ 100 mls/hr Q6HRS IV ; Start 03/13/18 at 12:00; Stop 03/13/18 at 12:00; Status DC Sodium Chloride 1,000 ml @ 1,000 mls/hr Q1H PRN IV hypotension; Start 03/13/18 at 10:05; Stop 03/13/18 at 16:04; Status DC Albumin Human 200 ml @ 200 mls/hr 1X PRN PRN IV Hypotension; Start 03/13/18 at 10:15; Stop 03/13/18 at 16:14; Status DC Info (PHARMACY MONITORING -- do not chart) 1 each PRN DAILY PRN MC SEE COMMENTS ; Start 03/13/18 at 10:15; Status UNV Info (PHARMACY MONITORING -- do not chart) 1 each PRN DAILY PRN MC SEE COMMENTS ; Start 03/13/18 at 10:15; Status UNV Metronidazole 100 ml @ 100 mls/hr Q8HRS IV ; Start 03/13/18 at 10:45; Stop at 10:45; Status DC Piperacillin Sod/ Tazobactam Sod 2.25 gm/Sodium Chloride 50 ml @ 100 mls/hr Q8HRS IV Last administered on 03/17/18at 21:46; Start 03/13/18 at 14:00 Metronidazole 100 ml @ 100 mls/hr Q8HRS IV Last administered on 03/16/18at 06: 19; Start 03/13/18 at 11:00; Stop 03/16/18 at 07:19; Status DC Vancomycin HCl 1.25 gm/Sodium Chloride 250 ml @ 166.667 mls/hr 1X ONCE IV Last administered on 03/14/18at 09:02; Start 03/14/18 at 08:15; Stop 03/14/18 at 09: 44; Status DC Sodium Bicarbonate (Sodium Bicarb Adult 8.4% Syr) 100 meq 1X ONCE IV Last administered on 03/14/18at 11:00; Start 03/14/18 at 10:45; Stop 03/14/18 at 10:46; Status DC Heparin Sodium (Porcine) (Heparin Sodium) 5,000 unit BID SQ Last administered on 03/17/18at 21:47; Start 03/14/18 at 12:00 Lorazepam (Ativan) 0.5 mg PRN Q4HRS PRN IV ANXIETY / AGITATION Last administered on 03/16/18at 19:15; Start 03/14/18 at 17:00 Sodium Bicarbonate (Sodium Bicarb Adult 8.4% Syr) 50 meq 1X ONCE IV Last administered on 03/16/18at 10:15; Start 03/16/18 at 08:30; Stop 03/16/18 at 08:32 ; Status DC Sodium Chloride 1,000 ml @ 1,000 mls/hr Q1H PRN IV hypotension; Start 03/16/18 at 14:59; Stop 03/16/18 at 20:58; Status DC Albumin Human 200 ml @ 200 mls/hr 1X PRN PRN IV Hypotension; Start 03/16/18 at 15:00; Stop 03/16/18 at 20:59; Status DC Sodium Chloride 1,000 ml @ 400 mls/hr Q2H30M PRN IV PATENCY; Start 03/16/18 at 14:59; Stop 03/17/18 at 02:58; Status DC Info (PHARMACY MONITORING -- do not chart) 1 each PRN DAILY PRN MC SEE COMMENTS ; Start 03/16/18 at 15:00; Status UNV Info (PHARMACY MONITORING -- do not chart) 1 each PRN DAILY PRN MC SEE COMMENTS ; Start 03/16/18 at 15:00 Norepinephrine Bitartrate 250 ml @ 1.875 mls/ hr CONT PRN IV SEE I/O RECORD Last administered on 03/16/18at 15:58; Start 03/16/18 at 16:00 Active Scripts Active Reported Zoloft (Sertraline Hcl) 100 Mg Tablet 150 Mg PO DAILY Senna Lax (Sennosides) 8.6 Mg Tablet 8.6 Mg PO DAILY Proair Hfa (Albuterol Sulfate) 8.5 Gm Hfa.aer.ad 2 Puff INH PRN Q6HRS PRN Miralax (Polyethylene Glycol 3350) 17 Gm Powd.pack 1 Pkt PO HS Oxycodone Hcl 5 Mg Capsule 20 Mg PO PRN Q4HRS PRN Oxycodone Hcl 5 Mg Capsule 10 Mg PO PRN Q4HRS PRN Ondansetron Odt (Ondansetron) 4 Mg Tab.rapdis 8 Mg PO PRN Q8HRS PRN One-Daily Multi-Vitamin (Multivitamin) 1 Each Tablet 1 Each PO HS Melatonin 3 Mg Tablet 1 Tab PO QHS Ativan (Lorazepam) 0.5 Mg Tablet 0.5 Mg PO PRN Q12HRS PRN Guaifenesin-Codeine Syrup (Guaifenesin/Codeine Phosphate) 118 Ml Liquid 10 Ml PO PRN Q4HRS PRN Flonase Allergy Relief (Fluticasone Propionate) 9.9 Ml [place].susp 1 Sprays NS DAILY FENTANYL 50mcg/hr (Fentanyl) 1 Each Patch.td72 1 Patch TP Q3DAYS Famotidine 40 Mg Tablet 20 Mg PO HS Dexamethasone 4 Mg Tablet 4 Tab PO DAILY Clonidine Hcl 0.1 Mg Tablet 0.1 Mg PO BID Carvedilol 25 Mg Tablet 6.25 Mg PO BIDWMEALS Calcium Acetate 667 Mg Tablet 667 Mg PO TIDWMEALS Vitals/I & O Vital Sign - Last 24 Hours 03/16/18 03/16/18 03/17/18 03/17/18 23:00 23:21 00:00 00:00 Temp 99.0 99.0 Pulse 99 101 Resp 22 25 B/P (MAP) 120/71 (87) 137/78 (97) Pulse Ox 97 97 96 O2 Delivery BiPAP/CPAP BiPAP/CPAP Bi-pap BiPAP/CPAP 03/17/18 03/17/18 03/17/18 03/17/18 01:00 02:00 02:40 03:00 Pulse 106 114 111 Resp 32 35 35 32 B/P (MAP) 146/91 (109) 111/67 (82) 98/54 (69) Pulse Ox 96 96 96 96 O2 Delivery Nasal Cannula Nasal Cannula Nasal Cannula Nasal Cannula O2 Flow Rate 3.0 3.0 3.0 3.0 03/17/18 03/17/18 03/17/18 03/17/18 04:00 04:00 04:14 05:00 Temp 99.7 99.7 Pulse 113 108 Resp 25 32 B/P (MAP) 87/42 (57) 82/53 (63) Pulse Ox 95 97 97 O2 Delivery BiPAP/CPAP Bi-pap BiPAP/CPAP BiPAP/CPAP 03/17/18 03/17/18 03/17/18 03/17/18 06:00 07:00 08:00 08:00 Temp 99.6 99.6 Pulse 100 98 102 Resp 24 25 35 B/P (MAP) 75/50 (58) 148/80 (102) 140/84 (102) Pulse Ox 98 98 98 O2 Delivery BiPAP/CPAP Venturi Mask Bi-pap Venturi Mask O2 Flow Rate 9.0 9.0 03/17/18 03/17/18 03/17/18 03/17/18 09:00 10:00 11:01 12:00 Pulse 110 118 107 Resp 30 33 28 B/P (MAP) 125/81 (96) 118/72 (87) 125/77 (93) Pulse Ox 97 98 91 O2 Delivery Venturi Mask Venturi Mask Room Air Bi-pap O2 Flow Rate 9.0 9.0 03/17/18 03/17/18 03/17/18 03/17/18 12:00 13:00 14:00 15:00 Temp 98.0 98.0 Pulse 106 110 112 108 Resp 28 31 28 28 B/P (MAP) 107/64 (78) 117/68 (84) 103/69 (80) 108/71 (83) Pulse Ox 92 93 98 O2 Delivery Room Air Room Air Room Air Venturi Mask O2 Flow Rate 9.0 03/17/18 03/17/18 03/17/18 03/17/18 16:00 16:00 17:00 18:00 Temp 98.9 98.9 Pulse 110 110 116 Resp 27 27 27 B/P (MAP) 104/61 (75) 107/67 (80) 107/63 (78) Pulse Ox 99 99 99 O2 Delivery Bi-pap Venturi Mask Venturi Mask Venturi Mask O2 Flow Rate 9.0 9.0 9.0 03/17/18 03/17/18 03/17/18 03/17/18 19:33 19:45 20:03 21:00 Pulse 110 Resp 16 28 B/P (MAP) 107/69 Pulse Ox 94 94 O2 Delivery Room Air Room Air Room Air Intake and Output 03/16/18 03/16/18 03/17/18 15:01 23:01 07:01 Intake Total 0 ml 1426 ml 966.4 ml Output Total 0 ml 0 ml Balance 0 ml 1426 ml 966.4 ml Nutrition Consultation Dietary Evaluation: Recommendations by RD: PPN/TPN Comments: continue PPN at this time Expected Outcomes/Goals: diet advancement/ tolerance Malnutrition Findings: Food and Nutrition Intake (Mod: <75% est energy req 7days Weight Status: Appropriate BERTA SMART MD Mar 17, 2018 22:03
[2018-03-18] VITALS (20 sets, daily range): BP systolic 105–156; BP diastolic 57–99
[2018-03-18] MEDS: HYDROmorphone 2 MG/ML VIAL IV PRN ×3 (00:21→11:46)
--- NOTE | 2018-03-18 00:30 | NUR ---
Nursing Note: Patient's came out of the room to let me know the patient was having pain. Discussed early with daughter it the room the importance of trying to decrease the amount of pain medication used due to lack of mobility and gi motility. She verbally understood, explained this to the as well. Patient is refusing to turn, educated patient on in the importance of turning. Patient also had a hold of her NGT and was telling her to trust her. She was answering questions appropriately when asking her what she was doing. I asked her if she was giving up and she stated she is not giving up. Reinforced the tape and instructed her to leave it alone.
[2018-03-18] MEDS: AMINO AC 3%/ELECTROLYTE/GLYCER 1,000 ML IV SCH ×2 (05:32→23:15)
[2018-03-18] MEDS: PIPERACILLIN/TAZOBACTAM 2.25 GM in IV NORMAL SALINE 50ML 50 ML IV SCH ×3 (05:32→23:08)
--- NOTE | 2018-03-18 06:00 | NUR ---
Nursing Note: When asking patient if she would like to get washed up she would not look at me, she would only look at her and her stated he would get her cleaned up later in the day.
[2018-03-18] MEDS: CALCIUM ACETATE 667 MG CAPSULE PO SCH ×3 (08:00→14:41)
[2018-03-18] MEDS: CARVEDILOL 6.25 MG TABLET. PO SCH ×2 (08:00→14:40)
--- NOTE | 2018-03-18 08:17 | PDOC ---
Infectious Disease Note Subjective Subjective Not sleeping No fevers last 24 hours No BM PPN Vital Sign Vital Signs Vital Signs Date Time Temp Pulse Resp B/P (MAP) Pulse Ox O2 Delivery O2 Flow Rate FiO2 03/18/18 06:00 106 26 114/72 (86) 94 Room Air 03/18/18 03:00 9.0 03/18/18 00:00 98.9 98.9 Physical Exam PHYSICAL EXAM GENERAL: Propped up in bed, weak appearing, quiet and withdrawn HEENT: Pupils equal and reactive. Oral cavity dry. NGT NECK: Supple. LUNGS: Diminished aeration, nonlabored HEART: S1, S2. ABDOMEN: Distended, hypoactive BM, soft, no grimace to light palpation EXTREMITIES: Without clubbing, cyanosis. 1+ lower extremity edema. SKIN: Warm to touch without any obvious rash. NEUROLOGIC: Awake, nonresponsive to questions Port & HDC clean Labs Micro 03/12. BLOOD CULTURE Final VERY TINY GRAM NEGATIVE RODS, IN BOTH ANAEROBIC BOTTLES, 2 OF 4,TWO SETS DRAWN. THIS BOTTLE ALSO HAS FEW LARGER GRAM NEATIVE RODS, SUGGESTIVE OF ENTERICS, WELL. 03/14. BLOOD CULTURE Preliminary NO GROWTH AFTER 4 DAYS 03/08. abdominal fluid ANAEROBIC RES 1 Final Bacteroides fragilis Objective Assessment Acute Resp Failure, Pleurx out Leukocytosis - on Steroids Peritonitis - Bacteroides Mar 08 GNR sepsis - 03/12 Tiny GNR - likely anaerobes. larger rods also -ID still pending. Repeat 03/14 neg so far Metastatic ovarian cancer, Ascites s/p paracentesis - Bacteroides fragilis ESRD on HD Ileus/partial SBO LE Doppler neg 03/14 Plan Plan of Care Cont Zosyn, renal dosing Vanc times one 03/14 May need port and HD cath removed am labs f/u CT A/P Critically ill Prognosis is poor D/w nursing Attending Co-Sign The patient was seen and interviewed as well as examined at the bedside. The chart was reviewed. The case was discussed. Agree with the plan of care. MARIANNA BHAT APRN Mar 18, 2018 08:17 LISA OLIVER MD Mar 18, 2018 13:57
--- NOTE | 2018-03-18 08:59 | RAD ---
PQRS Compliance Statement: One or more of the following individualized dose reduction techniques were utilized for this examination: 1. Automated exposure control 2. Adjustment of the mA and/or kV according to patient size 3. Use of iterative reconstruction technique CT ABDOMEN PELVIS WO CONTRAST Clinical Indication: Small bowel obstruction. Comparison: CT abdomen and pelvis without contrast March 07, 2018. Technique: Helical CT imaging of the abdomen and pelvis is performed without IV or oral contrast. Findings: Evaluation of solid organs and bowel is limited without oral and IV contrast, decreasing sensitivity for detection of pathology. There is increased consolidation in the left lower lobe with air bronchograms. Loculated left pleural effusion is similar. Left chest tube is noted. Curvilinear opacity in the right lower lobe is similar and may be chronic atelectasis. Fluid along the right major fissure is unchanged. Tip of central line is seen in the right atrium. Cardiac size upper limits of normal. Enteric tube tip is in the distal stomach. Cirrhotic liver. Spleen size normal. Hypodense splenic lesion is unchanged but is incompletely characterized. Left adrenal gland hyperplasia. Pancreas is homogeneous. 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 The upper pole moiety renal pelvis is prominent, unchanged. The left kidney is atrophic. No hydronephrosis. Moderate abdominal ascites is slightly less. Small bowel loops are no longer dilated. No colon wall thickening is identified. Possible venous varix lateral to the right psoas muscle is stable. Urinary bladder is unremarkable. Uterus atrophic or surgically absent. Anasarca is similar. Bones are stable. Nodularity along the supraumbilical ventral abdominal wall is stable, for example image 49. IMPRESSION: 1. Increased consolidation in the left lower lobe with air bronchograms. Considerations include pneumonia, aspiration, or compressive atelectasis. 2. Liver cirrhosis. 3. Splenic lesion is unchanged but incompletely characterized. 4. Moderate abdominal ascites is slightly less. 5. No dilated small bowel. Electronically signed by: Chase Traylor MD (03/18/2018 8:54 AM) [facility]
[2018-03-18] MEDS: SERTRALINE 50 MG TABLET. PO SCH (09:00)
[2018-03-18] MEDS: FLUTICASONE 50MCG/NASAL SPRAY 16GM BOTTLE. NS SCH (09:00)
[2018-03-18] MEDS: SENNOSIDES 8.6 MG TABLET PO SCH (09:00)
[2018-03-18] MEDS: cloNIDine HCL 0.1 MG TABLET PO SCH ×2 (09:00→23:09)
[2018-03-18] MEDS: DEXAMETHASONE 4 MG TABLET PO SCH (09:00)
[2018-03-18] MEDS: FERROUS SULFATE ORAL 300 MG/5 ML SOLUTION. PO SCH (09:00)
[2018-03-18] MEDS: MULTIVITAMIN with MINERAL TABLET. PO SCH (09:00)
--- NOTE | 2018-03-18 11:04 | PDOC ---
PULMONARY PROGRESS NOTES Subjective clinically improving off BIPAP Vitals Vital Signs Date Time Temp Pulse Resp B/P (MAP) Pulse Ox O2 Delivery O2 Flow Rate FiO2 03/18/18 06:00 106 26 114/72 (86) 94 Room Air 03/18/18 03:00 9.0 03/18/18 00:00 98.9 98.9 General: Alert, No acute distress Lungs: Other (decrease bs) Cardiovascular: S1 Abdomen: Soft Neuro Exam: Alert Extremities: Other (1+edema) Skin: Warm Labs Laboratory Tests Test 03/16/18 18:59 03/17/18 06:50 O2 Saturation 98 % (92-99) Arterial Blood pH 7.32 (7.35-7.45) Arterial Blood pCO2 at Patient Temp 47 mmHg (35-46) Arterial Blood pO2 at Patient Temp 121 mmHg (75-108) Arterial Blood HCO3 24 mmol/L (21-28) Arterial Blood Base Excess -2 mmol/L (-3-3) FiO2 36 White Blood Count 22.2 x10^3/uL (4.0-11.0) Red Blood Count 3.09 x10^6/uL (3.50-5.40) Hemoglobin 9.1 g/dL (12.0-15.5) Hematocrit 27.4 % (36.0-47.0) Mean Corpuscular Volume 89 fL (79-100) Mean Corpuscular Hemoglobin 29 pg (25-35) Mean Corpuscular Hemoglobin Concent 33 g/dL (31-37) Red Cell Distribution Width 18.7 % (11.5-14.5) Platelet Count 371 x10^3/uL (140-400) Neutrophils (%) (Auto) 91 % (31-73) Lymphocytes (%) (Auto) 5 % (24-48) Monocytes (%) (Auto) 4 % (0-9) Eosinophils (%) (Auto) 0 % (0-3) Basophils (%) (Auto) 0 % (0-3) Neutrophils # (Auto) 20.2 x10^3uL (1.8-7.7) Lymphocytes # (Auto) 1.0 x10^3/uL (1.0-4.8) Monocytes # (Auto) 0.9 x10^3/uL (0.0-1.1) Eosinophils # (Auto) 0.0 x10^3/uL (0.0-0.7) Basophils # (Auto) 0.1 x10^3/uL (0.0-0.2) Sodium Level 134 mmol/L (136-145) Potassium Level 4.6 mmol/L (3.5-5.1) Chloride Level 98 mmol/L (98-107) Carbon Dioxide Level 25 mmol/L (21-32) Anion Gap 11 (6-14) Blood Urea Nitrogen 57 mg/dL (7-20) Creatinine 2.8 mg/dL (0.6-1.0) Estimated GFR (Cockcroft-Gault) 17.4 Glucose Level 98 mg/dL (70-99) Calcium Level 8.6 mg/dL (8.5-10.1) Medications Active Scripts Medications Dose Route/Sig Max Daily Dose Days Date Category Zoloft (Sertraline Hcl) 100 Mg Tablet 150 Mg PO DAILY 03/06/18 Reported Senna Lax (Sennosides) 8.6 Mg Tablet 8.6 Mg PO DAILY 03/06/18 Reported Proair Hfa (Albuterol Sulfate) 8.5 Gm Hfa.aer.ad 2 Puff INH PRN Q6HRS PRN 03/06/18 Reported Miralax (Polyethylene Glycol 3350) 17 Gm Powd.pack 1 Pkt PO HS 03/06/18 Reported Oxycodone Hcl 5 Mg Capsule 20 Mg PO PRN Q4HRS PRN 03/06/18 Reported Oxycodone Hcl 5 Mg Capsule 10 Mg PO PRN Q4HRS PRN 03/06/18 Reported Ondansetron Odt (Ondansetron) 4 Mg Tab.rapdis 8 Mg PO PRN Q8HRS PRN 03/06/18 Reported One-Daily Multi-Vitamin (Multivitamin) 1 Each Tablet 1 Each PO HS 03/06/18 Reported Melatonin 3 Mg Tablet 1 Tab PO QHS 03/06/18 Reported Ativan (Lorazepam) 0.5 Mg Tablet 0.5 Mg PO PRN Q12HRS PRN 03/06/18 Reported Guaifenesin-Codeine Syrup (Guaifenesin/Codeine Phosphate) 118 Ml Liquid 10 Ml PO PRN Q4HRS PRN 03/06/18 Reported Flonase Allergy Relief (Fluticasone Propionate) 9.9 Ml [place].susp 1 Sprays NS DAILY 03/06/18 Reported FENTANYL 50mcg/hr (Fentanyl) 1 Each Patch.td72 1 Patch TP Q3DAYS 03/06/18 Reported Famotidine 40 Mg Tablet 20 Mg PO HS 03/06/18 Reported Dexamethasone 4 Mg Tablet 4 Tab PO DAILY 03/06/18 Reported Clonidine Hcl 0.1 Mg Tablet 0.1 Mg PO BID 03/06/18 Reported Carvedilol 25 Mg Tablet 6.25 Mg PO BIDWMEALS 03/06/18 Reported Calcium Acetate 667 Mg Tablet 667 Mg PO TIDWMEALS 03/06/18 Reported Impression . 1. Progressive hypercapnic and hypoxic respiratory failure secondary to multifactorial etiologies. The patient had progressive metastatic ovarian cancer with ongoing congestive heart failure and bilateral effusions, suspected extreme weakness contributing to hypercapnia as well. off BIPAP now 2. End-stage renal disease, on hemodialysis. 3. Metastatic ovarian cancer. 4. History of subdural hematoma. 5. History of gastroesophageal reflux disease. 6. Non-ST elevation myocardial infarction. 7. Depression. 8. Hyperlipidemia. 9. Persistent leukocytosis Plan . 1. Clinically improved. Met/ Resp acidosis improved. 2. prn BiPAP. 3. HD per renal 4. Follow ABGs prn 5. Continue antibiotics per ID 6. Venous Dopplers are negative. 7. Supportive care and follow recommendations of Renal and Oncology. 8. DVT prophylaxis. 9. Stress ulcer prophylaxis. 10. Discussed with RN and RAEGAN MERCHANT MD Mar 18, 2018 11:04
[2018-03-18] MEDS: PANTOPRAZOLE IV PUSH 40 MG VIAL. IVP SCH ×2 (11:45→14:26)
--- NOTE | 2018-03-18 12:27 | PDOC ---
PROGRESS NOTES Chief Complaint Chief Complaint Acute hypoxemic respiratory failure failing Bipap, prognosis very grim given metastatic OC Ovarian Cancer, METASTATIC End Stage Renal Disease, HD dependent Tachycardia small bowel obstruction by ct-->KUB today Ascites - s/p paracentesis (800cc) CT a/p with no dilated will start CLD History of Present Illness History of Present Illness patient lying in bed in moderate distress, complaining of pain, still on bipap which now is starting to create pressure ulcers from the mask, discussed at length with who seems keen on continuing dialysis despite several discussions with myself the consultants in palliative care. Patient has very poor prognosis and I have tried to explain the importance of providing comfort and dignity to the patient especially since she is on most likely her last basal nurse. 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 Oral cavity dry. NGT NECK: Supple. LUNGS: Diminished aeration, nonlabored HEART: S1, S2. ABDOMEN: Distended, hypoactive BM, soft, no grimace to light palpation EXTREMITIES: Without clubbing, cyanosis. 1+ lower extremity edema. SKIN: Warm to touch without any obvious rash. NEUROLOGIC: Awake, nonresponsive to questions Port & HDC clean General: Alert, Oriented X3, Cooperative, No acute distress, moderate distress Heart: Regular rate, Normal S1, Normal S2, No murmurs, Gallops, Other (TACHY RATE 116) Lungs: Other (decrease bs) Abdomen: Normal bowel sounds, Soft, No tenderness, No hepatosplenomegaly, No masses Extremities: No clubbing, No cyanosis, Normal pulses, No tenderness/swelling, Other (3+ edema) Assessment and Plan Assessmemt and Plan Problems Medical Problems: (1) Dialysis catheter clot or failure Status: Acute (2) Serum potassium elevated Status: Acute Comment Review of Relevant I have reviewed the following items arden (where applicable) has been applied. Labs Laboratory Tests Test 03/16/18 18:59 03/17/18 06:50 O2 Saturation 98 % (92-99) Arterial Blood pH 7.32 (7.35-7.45) Arterial Blood pCO2 at Patient Temp 47 mmHg (35-46) Arterial Blood pO2 at Patient Temp 121 mmHg (75-108) Arterial Blood HCO3 24 mmol/L (21-28) Arterial Blood Base Excess -2 mmol/L (-3-3) FiO2 36 White Blood Count 22.2 x10^3/uL (4.0-11.0) Red Blood Count 3.09 x10^6/uL (3.50-5.40) Hemoglobin 9.1 g/dL (12.0-15.5) Hematocrit 27.4 % (36.0-47.0) Mean Corpuscular Volume 89 fL (79-100) Mean Corpuscular Hemoglobin 29 pg (25-35) Mean Corpuscular Hemoglobin Concent 33 g/dL (31-37) Red Cell Distribution Width 18.7 % (11.5-14.5) Platelet Count 371 x10^3/uL (140-400) Neutrophils (%) (Auto) 91 % (31-73) Lymphocytes (%) (Auto) 5 % (24-48) Monocytes (%) (Auto) 4 % (0-9) Eosinophils (%) (Auto) 0 % (0-3) Basophils (%) (Auto) 0 % (0-3) Neutrophils # (Auto) 20.2 x10^3uL (1.8-7.7) Lymphocytes # (Auto) 1.0 x10^3/uL (1.0-4.8) Monocytes # (Auto) 0.9 x10^3/uL (0.0-1.1) Eosinophils # (Auto) 0.0 x10^3/uL (0.0-0.7) Basophils # (Auto) 0.1 x10^3/uL (0.0-0.2) Sodium Level 134 mmol/L (136-145) Potassium Level 4.6 mmol/L (3.5-5.1) Chloride Level 98 mmol/L (98-107) Carbon Dioxide Level 25 mmol/L (21-32) Anion Gap 11 (6-14) Blood Urea Nitrogen 57 mg/dL (7-20) Creatinine 2.8 mg/dL (0.6-1.0) Estimated GFR (Cockcroft-Gault) 17.4 Glucose Level 98 mg/dL (70-99) Calcium Level 8.6 mg/dL (8.5-10.1) Microbiology 03/14/18 Blood Culture - Preliminary, Resulted NO GROWTH AFTER 4 DAYS 03/08/18 Anaerobic/Aerobic Culture - Final, Complete 03/08/18 Anaerobic Culture Result 1 (TIMOTHY) - Final, Complete 03/08/18 Aerobic Culture - Final, Complete 03/08/18 Aerobic Culture Result 1 (TIMOTHY) - Final, Complete 03/08/18 Gram Stain - Final, Complete 03/08/18 Gram Stain Result 1 (TIMOTHY) - Final, Complete 03/08/18 Gram Stain Result 2 (TIMOTHY) - Final, Complete Medications Current Medications Ondansetron HCl (Zofran) 4 mg PRN Q8HRS PRN IV NAUSEA/VOMITING Last administered on 03/06/18at 05:34; Start 03/05/18 at 22:00; Stop 03/06/18 at 21:59 ; Status DC Fentanyl Citrate (Fentanyl 2ml Vial) 50 mcg PRN Q1HR PRN IV PAIN Last administered on 03/06/18at 05:35; Start 03/05/18 at 22:00; Stop 03/06/18 at 21:59 ; Status DC Calcium Gluconate (Calcium Gluconate) 1,000 mg 1X ONCE IVP Last administered on 03/05/18at 23:23; Start 03/05/18 at 22:15; Stop 03/05/18 at 22:16; Status DC Sodium Bicarbonate (Sodium Bicarb Adult 8.4% Syr) 50 meq 1X ONCE IV Last administered on 03/05/18at 23:23; Start 03/05/18 at 22:15; Stop 03/05/18 at 22 :16; Status DC Sodium Polystyrene Sulfonate (Kayexalate) 30 gm 1X ONCE PO Last administered on 03/05/18at 23:23; Start 03/05/18 at 22:15; Stop 03/05/18 at 22:16; Status DC Ondansetron HCl (Zofran) 4 mg 1X ONCE IV Last administered on 03/05/18at 22:55 ; Start 03/05/18 at 22:45; Stop 03/05/18 at 22:55; Status DC Prochlorperazine Edisylate (Compazine) 10 mg PRN Q6HRS PRN IM NAUSEA/VOMITING; Start 03/06/18 at 06:15; Stop 03/06/18 at 12:32; Status DC Oxycodone HCl (Roxicodone) 10 mg PRN Q4HRS PRN PO MILD - MODERATE PAIN Last administered on 03/11/18at 00:24; Start 03/06/18 at 06:15 Oxycodone HCl (Roxicodone) 20 mg PRN Q4HRS PRN PO SEVERE PAIN; Start 03/06/18 at 06:15 Lidocaine/ Epinephrine (LIDOCAINE 1%-EPI 1:100,000 Multi-Dose) 20 ml STK-MED ONCE .ROUTE ; Start 03/06/18 at 09:11; Stop 03/06/18 at 09:12; Status DC Cefazolin Sodium 50 ml @ As Directed STK-MED ONCE IV ; Start 03/06/18 at 09:34; Stop 03/06/18 at 09:35; Status DC Midazolam HCl (Versed) 2 mg STK-MED ONCE .ROUTE ; Start 03/06/18 at 09:34; Stop 03/06/18 at 09:35; Status DC Fentanyl Citrate (Fentanyl 2ml Vial) 100 mcg STK-MED ONCE .ROUTE ; Start at 09:34; Stop 03/06/18 at 09:35; Status DC Heparin Sodium (Porcine) (Heparin Sodium) 10,000 unit STK-MED ONCE .ROUTE ; Start 03/06/18 at 09:44; Stop 03/06/18 at 09:46; Status DC Midazolam HCl (Versed) 2 mg 1X ONCE IV Last administered on 03/06/18at 10:11; Start 03/06/18 at 10:30; Stop 03/06/18 at 10:35; Status DC Fentanyl Citrate (Fentanyl 2ml Vial) 100 mcg 1X ONCE IV Last administered on at 10:11; Start 03/06/18 at 10:30; Stop 03/06/18 at 10:35; Status DC Lidocaine/ Epinephrine (LIDOCAINE 1%-EPI 1:100,000 Multi-Dose) 20 ml 1X ONCE IJ Last administered on 03/06/18at 10:09; Start 03/06/18 at 10:30; Stop 03/06/18 at 10:35; Status DC Cefazolin Sodium 50 ml @ 100 mls/hr 1X ONCE IV Last administered on 03/06/18at 10:11; Start 03/06/18 at 10:30; Stop 03/06/18 at 10:59; Status DC Heparin Sodium (Porcine) (Heparin Sodium) 4,200 unit 1X ONCE INT CAT Last administered on 03/06/18at 10:11; Start 03/06/18 at 10:30; Stop 03/06/18 at 10:35; Status DC Clonidine HCl (Catapres) 0.1 mg BID PO Last administered on 03/10/18at 21:05; Start 03/06/18 at 12:00 Dexamethasone (Decadron) 16 mg DAILY PO Last administered on 03/07/18at 13:12; Start 03/06/18 at 12:00; Stop 03/08/18 at 09:00; Status DC Fentanyl (Duragesic 50mcg/ Hr Patch) 1 patch Q3DAYS TD ; Start 03/06/18 at 21:00 ; Stop 03/06/18 at 21:05; Status DC Lorazepam (Ativan) 0.5 mg PRN Q12HRS PRN PO ANXIETY / AGITATION; Start 03/06/18 at 11:30 Ondansetron HCl (Zofran Odt) 8 mg PRN Q8HRS PRN PO NAUSEA/VOMITING Last administered on 03/11/18at 01:41; Start 03/06/18 at 11:30 Calcium Acetate (Phoslo) 667 mg TIDWMEALS PO Last administered on 03/09/18 12: 09; Start 03/06/18 at 12:00 Carvedilol (Coreg) 6.25 mg BIDWMEALS PO Last administered on 03/10/18at 18:35; Start 03/06/18 at 12:00 Famotidine (Pepcid) 20 mg QHS PO Last administered on 03/06/18at 20:51; Start 03/06/18 at 21:00; Stop 03/07/18 at 13:15; Status DC Fluticasone Propionate (Flonase) 1 spray DAILY NS Last administered on at 12:16; Start 03/06/18 at 12:00 Guaifenesin/ Codeine Phosphate (Robitussin Ac) 10 ml PRN Q4HRS PRN PO COUGH; Start 03/06/18 at 11:45 Non-Formulary Medication (Melatonin ) 1 tab QHS PO ; Start 03/06/18 at 21:00; Status UNV Multivitamins (Thera M Plus) 1 tab DAILY PO Last administered on 03/09/18at 08:20 ; Start 03/06/18 at 12:00 Polyethylene Glycol (miraLAX PACKET) 17 gm QHS PO Last administered on 21:04; Start 03/06/18 at 21:00 Sennosides (Senna) 8.6 mg DAILY PO Last administered on 03/09/18 08:20; Start 03/06/18 at 12:00 Sertraline HCl (Zoloft) 150 mg DAILY PO Last administered on 03/09/18at 08:20; Start 03/06/18 at 12:00 Prochlorperazine Edisylate (Compazine) 10 mg PRN Q6HRS PRN IV NAUSEA/VOMITING Last administered on 03/15/18at 07:03; Start 03/06/18 at 12:45 Darbepoetin Taran (Aranesp) 60 mcg WEEKLYHS SQ Last administered on 03/13/18 21: 03; Start 03/06/18 at 21:00 Magnesium Sulfate 50 ml @ 25 mls/hr PRN DAILY PRN IV for Mag < 1.7 on am labs; Start 03/06/18 at 13:45 Sodium Chloride 1,000 ml @ 1,000 mls/hr Q1H PRN IV hypotension; Start 03/06/18 at 12:30; Stop 03/06/18 at 18:29; Status DC Sodium Chloride 1,000 ml @ 400 mls/hr Q2H30M PRN IV PATENCY; Start 03/06/18 at 12:30; Stop 03/06/18 at 20:00; Status DC Info (PHARMACY MONITORING -- do not chart) 1 each PRN DAILY PRN MC SEE COMMENTS ; Start 03/06/18 at 15:00; Status UNV Info (PHARMACY MONITORING -- do not chart) 1 each PRN DAILY PRN MC SEE COMMENTS ; Start 03/06/18 at 15:00; Stop 03/07/18 at 16:17; Status DC Fentanyl (Duragesic 50mcg/ Hr Patch) 1 patch Q72H TD Last administered on at 20:46; Start 03/06/18 at 21:30 Sodium Chloride 1,000 ml @ 1,000 mls/hr Q1H PRN IV hypotension; Start 03/07/18 at 07:51; Stop 03/07/18 at 13:50; Status DC Albumin Human 200 ml @ 200 mls/hr 1X PRN PRN IV Hypotension; Start 03/07/18 at 08:00; Stop 03/07/18 at 13:59; Status DC Sodium Chloride 1,000 ml @ 400 mls/hr Q2H30M PRN IV PATENCY; Start 03/07/18 at 07:51; Stop 03/07/18 at 19:50; Status DC Info (PHARMACY MONITORING -- do not chart) 1 each PRN DAILY PRN MC SEE COMMENTS ; Start 03/07/18 at 08:00; Stop 03/09/18 at 18:51; Status DC Info (PHARMACY MONITORING -- do not chart) 1 each PRN DAILY PRN MC SEE COMMENTS ; Start 03/07/18 at 08:00; Status UNV Dexamethasone (Decadron) 12 mg DAILY PO ; Start 03/07/18 at 09:30; Stop 03/07/18 at 09:33; Status DC Dexamethasone (Decadron) 12 mg DAILY PO Last administered on 03/09/18at 08:20; Start 03/09/18 at 09:00; Stop 03/13/18 at 09:17; Status DC Pantoprazole Sodium (Protonix) 40 mg DAILYAC PO ; Start 03/08/18 at 07:30; Stop 03/08/18 at 07:30; Status DC Pantoprazole Sodium (PROTONIX VIAL for IV PUSH) 40 mg DAILYAC IVP Last administered on 03/09/18at 08:19; Start 03/08/18 at 07:30; Stop 03/09/18 at 12:24; Status DC Ferrous Sulfate (Iron Oral Solution) 300 mg DAILY PO Last administered on at 08:20; Start 03/08/18 at 10:30 Albumin Human 100 ml @ 100 mls/hr Q6HRS IV Last administered on 03/09/18at 17:28 ; Start 03/08/18 at 12:00; Stop 03/09/18 at 18:59; Status DC Sodium Chloride 1,000 ml @ 1,000 mls/hr Q1H PRN IV hypotension; Start 03/08/18 at 15:00; Stop 03/08/18 at 21:21; Status DC Sodium Chloride (Normal Saline Flush) 10 ml 1X PRN PRN IV AP catheter pack; Start 03/08/18 at 15:00; Stop 03/09/18 at 14:59; Status DC Sodium Chloride (Normal Saline Flush) 10 ml 1X PRN PRN IV TELETYPEWRITER OPERATOR catheter pack; Start 03/08/18 at 15:00; Stop 03/09/18 at 14:59; Status DC Info (PHARMACY MONITORING -- do not chart) 1 each PRN DAILY PRN MC SEE COMMENTS ; Start 03/08/18 at 21:15; Status Cancel Info (PHARMACY MONITORING -- do not chart) 1 each PRN DAILY PRN MC SEE COMMENTS ; Start 03/08/18 at 21:15 Pantoprazole Sodium (Protonix) 40 mg DAILYAC PO Last administered on 03/10/18at 08:20; Start 03/09/18 at 16:30; Stop 03/12/18 at 10:38; Status DC Sodium Chloride 1,000 ml @ 1,000 mls/hr Q1H PRN IV hypotension; Start 03/10/18 at 08:30; Stop 03/10/18 at 14:29; Status DC Sodium Chloride 1,000 ml @ 400 mls/hr Q2H30M PRN IV PATENCY; Start 03/10/18 at 08:30; Stop 03/10/18 at 20:29; Status DC Info (PHARMACY MONITORING -- do not chart) 1 each PRN DAILY PRN MC SEE COMMENTS ; Start 03/10/18 at 10:15; Status UNV Info (PHARMACY MONITORING -- do not chart) 1 each PRN DAILY PRN MC SEE COMMENTS ; Start 03/10/18 at 10:15; Status UNV Alteplase, Recombinant (Cathflo) 2 mg 1X ONCE INT CAT Last administered on 03/10at 14:04; Start 03/10/18 at 11:45; Stop 03/10/18 at 11:46; Status DC Amino Acids/ Glycerin/ Electrolytes 1,000 ml @ 80 mls/hr [id number] IV Last administered on 03/18/18at 05:32; Start 03/10/18 at 20:00 Alteplase, Recombinant (Cathflo) 2 mg 1X ONCE INT CAT Last administered on 03/10at 21:05; Start 03/10/18 at 20:00; Stop 03/10/18 at 20:16; Status DC Metoprolol Tartrate (Lopressor Vial) 5 mg 1X ONCE IVP Last administered on 03/11at 12:01; Start 03/11/18 at 12:00; Stop 03/11/18 at 12:01; Status DC Hydromorphone HCl (Dilaudid) 1 mg PRN Q4HRS PRN IV PAIN Last administered on at 11:46; Start 03/11/18 at 11:45 Sodium Chloride 500 ml @ 500 mls/hr 1X ONCE IV Last administered on 03/11/18at 12:02; Start 03/11/18 at 11:45; Stop 03/11/18 at 12:45; Status DC Metoprolol Tartrate (Lopressor Vial) 5 mg Q6HRS IVP ; Start 03/11/18 at 18:00; Stop 03/11/18 at 18:00; Status DC Alteplase, Recombinant (Cathflo) 2 mg 1X ONCE INT CAT ; Start 03/11/18 at 18:00 ; Stop 03/11/18 at 18:01; Status DC Metoprolol Tartrate (Lopressor Vial) 5 mg Q6HRS PRN IVP TACHYCARDIA Last administered on 03/14/18at 05:28; Start 03/11/18 at 18:00 Heparin Sodium (Porcine) (Hep Lock Adult) 500 unit 1X ONCE IV Last administered on 03/11/18at 18:20; Start 03/11/18 at 18:00; Stop 03/11/18 at 18:01; Status DC Acetaminophen (Tylenol Supp) 650 mg PRN Q6HRS PRN CA MILD PAIN / TEMP Last administered on 03/12/18at 09:27; Start 03/12/18 at 08:45 Throat Lozenges (Chloraseptic) 1 spray PRN Q2HR PRN PO SORE THROAT Last administered on 03/12/18at 09:26; Start 03/12/18 at 08:45 Pantoprazole Sodium (PROTONIX VIAL for IV PUSH) 40 mg DAILYAC IVP Last administered on 03/18/18at 11:45; Start 03/13/18 at 07:30 Dexamethasone (Decadron) 8 mg DAILY PO ; Start 03/13/18 at 09:30 Ceftriaxone Sodium (Rocephin) 1 gm Q24H IVP ; Start 03/13/18 at 10:30; Stop at 10:34; Status DC Piperacillin Sod/ Tazobactam Sod 3.375 gm/Sodium Chloride 50 ml @ 100 mls/hr Q6HRS IV ; Start 03/13/18 at 12:00; Stop 03/13/18 at 12:00; Status DC Sodium Chloride 1,000 ml @ 1,000 mls/hr Q1H PRN IV hypotension; Start 03/13/18 at 10:05; Stop 03/13/18 at 16:04; Status DC Albumin Human 200 ml @ 200 mls/hr 1X PRN PRN IV Hypotension; Start 03/13/18 at 10:15; Stop 03/13/18 at 16:14; Status DC Info (PHARMACY MONITORING -- do not chart) 1 each PRN DAILY PRN MC SEE COMMENTS ; Start 03/13/18 at 10:15; Status UNV Info (PHARMACY MONITORING -- do not chart) 1 each PRN DAILY PRN MC SEE COMMENTS ; Start 03/13/18 at 10:15; Status UNV Metronidazole 100 ml @ 100 mls/hr Q8HRS IV ; Start 03/13/18 at 10:45; Stop at 10:45; Status DC Piperacillin Sod/ Tazobactam Sod 2.25 gm/Sodium Chloride 50 ml @ 100 mls/hr Q8HRS IV Last administered on 03/18/18at 05:32; Start 03/13/18 at 14:00 Metronidazole 100 ml @ 100 mls/hr Q8HRS IV Last administered on 03/16/18at 06: 19; Start 03/13/18 at 11:00; Stop 03/16/18 at 07:19; Status DC Vancomycin HCl 1.25 gm/Sodium Chloride 250 ml @ 166.667 mls/hr 1X ONCE IV Last administered on 03/14/18at 09:02; Start 03/14/18 at 08:15; Stop 03/14/18 at 09: 44; Status DC Sodium Bicarbonate (Sodium Bicarb Adult 8.4% Syr) 100 meq 1X ONCE IV Last administered on 03/14/18at 11:00; Start 03/14/18 at 10:45; Stop 03/14/18 at 10:46; Status DC Heparin Sodium (Porcine) (Heparin Sodium) 5,000 unit BID SQ Last administered on 03/17/18at 21:47; Start 03/14/18 at 12:00 Lorazepam (Ativan) 0.5 mg PRN Q4HRS PRN IV ANXIETY / AGITATION Last administered on 03/18/18at 01:30; Start 03/14/18 at 17:00 Sodium Bicarbonate (Sodium Bicarb Adult 8.4% Syr) 50 meq 1X ONCE IV Last administered on 03/16/18at 10:15; Start 03/16/18 at 08:30; Stop 03/16/18 at 08:32 ; Status DC Sodium Chloride 1,000 ml @ 1,000 mls/hr Q1H PRN IV hypotension; Start 03/16/18 at 14:59; Stop 03/16/18 at 20:58; Status DC Albumin Human 200 ml @ 200 mls/hr 1X PRN PRN IV Hypotension; Start 03/16/18 at 15:00; Stop 03/16/18 at 20:59; Status DC Sodium Chloride 1,000 ml @ 400 mls/hr Q2H30M PRN IV PATENCY; Start 03/16/18 at 14:59; Stop 03/17/18 at 02:58; Status DC Info (PHARMACY MONITORING -- do not chart) 1 each PRN DAILY PRN MC SEE COMMENTS ; Start 03/16/18 at 15:00; Status UNV Info (PHARMACY MONITORING -- do not chart) 1 each PRN DAILY PRN MC SEE COMMENTS ; Start 03/16/18 at 15:00 Norepinephrine Bitartrate 250 ml @ 1.875 mls/ hr CONT PRN IV SEE I/O RECORD Last administered on 03/16/18at 15:58; Start 03/16/18 at 16:00 Active Scripts Active Reported Zoloft (Sertraline Hcl) 100 Mg Tablet 150 Mg PO DAILY Senna Lax (Sennosides) 8.6 Mg Tablet 8.6 Mg PO DAILY Proair Hfa (Albuterol Sulfate) 8.5 Gm Hfa.aer.ad 2 Puff INH PRN Q6HRS PRN Miralax (Polyethylene Glycol 3350) 17 Gm Powd.pack 1 Pkt PO HS Oxycodone Hcl 5 Mg Capsule 20 Mg PO PRN Q4HRS PRN Oxycodone Hcl 5 Mg Capsule 10 Mg PO PRN Q4HRS PRN Ondansetron Odt (Ondansetron) 4 Mg Tab.rapdis 8 Mg PO PRN Q8HRS PRN One-Daily Multi-Vitamin (Multivitamin) 1 Each Tablet 1 Each PO HS Melatonin 3 Mg Tablet 1 Tab PO QHS Ativan (Lorazepam) 0.5 Mg Tablet 0.5 Mg PO PRN Q12HRS PRN Guaifenesin-Codeine Syrup (Guaifenesin/Codeine Phosphate) 118 Ml Liquid 10 Ml PO PRN Q4HRS PRN Flonase Allergy Relief (Fluticasone Propionate) 9.9 Ml [place].susp 1 Sprays NS DAILY FENTANYL 50mcg/hr (Fentanyl) 1 Each Patch.td72 1 Patch TP Q3DAYS Famotidine 40 Mg Tablet 20 Mg PO HS Dexamethasone 4 Mg Tablet 4 Tab PO DAILY Clonidine Hcl 0.1 Mg Tablet 0.1 Mg PO BID Carvedilol 25 Mg Tablet 6.25 Mg PO BIDWMEALS Calcium Acetate 667 Mg Tablet 667 Mg PO TIDWMEALS Vitals/I & O Vital Sign - Last 24 Hours 03/17/18 03/17/18 03/17/18 03/17/18 13:00 14:00 15:00 16:00 Pulse 110 112 108 Resp 31 28 28 B/P (MAP) 117/68 (84) 103/69 (80) 108/71 (83) Pulse Ox 93 98 O2 Delivery Room Air Room Air Venturi Mask Bi-pap O2 Flow Rate 9.0 03/17/18 03/17/18 03/17/18 03/17/18 16:00 17:00 18:00 19:00 Temp 98.9 99.8 98.9 99.8 Pulse 110 110 116 110 Resp 27 27 27 26 B/P (MAP) 104/61 (75) 107/67 (80) 107/63 (78) 100/59 (73) Pulse Ox 99 99 99 93 O2 Delivery Venturi Mask Venturi Mask Venturi Mask Room Air O2 Flow Rate 9.0 9.0 9.0 03/17/18 03/17/18 03/17/18 03/17/18 19:33 19:45 20:00 21:00 Pulse 106 110 Resp 16 22 B/P (MAP) 93/57 (69) 107/69 Pulse Ox 94 93 O2 Delivery Room Air Room Air Room Air 03/17/18 03/17/18 03/17/18 03/17/18 21:00 22:00 23:00 23:42 Pulse 106 113 110 Resp 26 27 28 B/P (MAP) 95/57 (70) 113/77 (89) 131/83 (99) Pulse Ox 94 94 98 O2 Delivery Room Air Room Air Room Air Room Air 03/18/18 03/18/18 03/18/18 03/18/18 00:00 00:21 01:00 02:00 Temp 98.9 98.9 Pulse 110 105 109 Resp 27 35 17 24 B/P (MAP) 132/79 (96) 105/57 (73) 108/67 (81) Pulse Ox 94 98 94 93 O2 Delivery Room Air Room Air Room Air Room Air 03/18/18 03/18/18 03/18/18 03/18/18 03:00 04:00 04:00 05:00 Pulse 112 109 108 Resp 20 26 31 B/P (MAP) 128/70 (89) 112/73 (86) 112/79 (90) Pulse Ox 99 93 94 O2 Delivery Venturi Mask Room Air Room Air Room Air O2 Flow Rate 9.0 03/18/18 03/18/18 03/18/18 03/18/18 05:30 06:00 06:00 07:00 Pulse 106 106 Resp 30 16 26 27 B/P (MAP) 114/72 (86) 116/68 (84) Pulse Ox 95 94 94 93 O2 Delivery Room Air Room Air Room Air Room Air 03/18/18 03/18/18 03/18/18 03/18/18 08:00 08:00 10:00 11:00 Temp 98.6 98.6 Pulse 102 104 100 Resp 30 29 23 B/P (MAP) 133/80 (97) 122/74 (90) 115/69 (84) Pulse Ox 94 95 92 O2 Delivery Room Air Room Air Room Air Room Air 03/18/18 03/18/18 11:46 12:01 Resp 20 Pulse Ox 95 O2 Delivery Room Air Room Air Intake and Output 03/17/18 03/17/18 03/18/18 15:01 23:01 07:01 Intake Total 0 ml 1055 ml 1040 ml Output Total 0 ml 0 ml Balance 0 ml 1055 ml 1040 ml Nutrition Consultation Dietary Evaluation: Recommendations by RD: PPN/TPN Comments: continue PPN at this time Expected Outcomes/Goals: diet advancement/ tolerance Malnutrition Findings: Food and Nutrition Intake (Mod: <75% est energy req 7days Weight Status: Appropriate BERTA SMART MD Mar 18, 2018 12:27
[2018-03-18] MEDS: HEPARIN for SUB-Q USE 5,000 UNIT/ML VIAL. SQ SCH ×2 (14:39→23:10)
[2018-03-18] MEDS: POLYETHYLENE GLYCOL 3350 17 GM PACKET. PO SCH (21:00)
[2018-03-18] MEDS: fentaNYL 50MCG/HR PATCH 1 PATCH PATCH.TD72 TD SCH (23:10)
[2018-03-19] VITALS (20 sets, daily range): BP systolic 133–170; BP diastolic 80–108
[2018-03-19 03:56] LABS: BASO # 0.1 x10^3/uL (0.0-0.2); BASO % 0 % (0-3); EOS % 0 % (0-3); HEMATOCRIT 28.7 % (36.0-47.0); HEMOGLOBIN 9.4 g/dL (12.0-15.5); LYMPH # 0.9 x10^3/uL (1.0-4.8); LYMPH % 4 % (24-48); MEAN CORPUSCULAR HEMOGLOBIN 29 pg (25-35); MEAN CORPUSCULAR HGB CONC 33 g/dL (31-37); MEAN CORPUSCULAR VOLUME 88 fL (79-100); MONO # 0.7 x10^3/uL (0.0-1.1); MONO % 4 % (0-9); NEUT # 18.7 x10^3uL (1.8-7.7); NEUT % 92 % (31-73); PLATELET COUNT 414 x10^3/uL (140-400); RED BLOOD COUNT 3.27 x10^6/uL (3.50-5.40); RED CELL DISTRIBUTION WIDTH 18.3 % (11.5-14.5); WHITE BLOOD COUNT 20.4 x10^3/uL (4.0-11.0)
[2018-03-19] MEDS: PIPERACILLIN/TAZOBACTAM 2.25 GM in IV NORMAL SALINE 50ML 50 ML IV SCH ×3 (06:21→22:00)
[2018-03-19] MEDS: AMINO AC 3%/ELECTROLYTE/GLYCER 1,000 ML IV SCH ×3 (06:21→22:59)
[2018-03-19] MEDS: CALCIUM ACETATE 667 MG CAPSULE PO SCH ×3 (08:00→17:00)
--- NOTE | 2018-03-19 08:13 | PDOC ---
Infectious Disease Note Subjective Subjective awake, says is feeling better ROS ROS no n/v/d/sob Vital Sign Vital Signs Vital Signs Date Time Temp Pulse Resp B/P (MAP) Pulse Ox O2 Delivery O2 Flow Rate FiO2 03/19/18 06:24 111 27 146/90 (108) 99 Room Air 03/19/18 04:00 98.2 98.2 03/18/18 15:00 9.0 Physical Exam PHYSICAL EXAM GENERAL: Propped up in bed, weak appearing, quiet and withdrawn HEENT: Pupils equal and reactive. Oral cavity dry. NGT NECK: Supple. LUNGS: Diminished aeration, nonlabored HEART: S1, S2. ABDOMEN: Distended, hypoactive BM, soft, no grimace to light palpation EXTREMITIES: Without clubbing, cyanosis. 1+ lower extremity edema. SKIN: Warm to touch without any obvious rash. NEUROLOGIC: Awake, nonresponsive to questions Port & HDC clean Labs Lab Laboratory Tests Test 03/19/18 03:45 White Blood Count 20.4 x10^3/uL (4.0-11.0) Red Blood Count 3.27 x10^6/uL (3.50-5.40) Hemoglobin 9.4 g/dL (12.0-15.5) Hematocrit 28.7 % (36.0-47.0) Mean Corpuscular Volume 88 fL (79-100) Mean Corpuscular Hemoglobin 29 pg (25-35) Mean Corpuscular Hemoglobin Concent 33 g/dL (31-37) Red Cell Distribution Width 18.3 % (11.5-14.5) Platelet Count 414 x10^3/uL (140-400) Neutrophils (%) (Auto) 92 % (31-73) Lymphocytes (%) (Auto) 4 % (24-48) Monocytes (%) (Auto) 4 % (0-9) Eosinophils (%) (Auto) 0 % (0-3) Basophils (%) (Auto) 0 % (0-3) Neutrophils # (Auto) 18.7 x10^3uL (1.8-7.7) Lymphocytes # (Auto) 0.9 x10^3/uL (1.0-4.8) Monocytes # (Auto) 0.7 x10^3/uL (0.0-1.1) Eosinophils # (Auto) 0.0 x10^3/uL (0.0-0.7) Basophils # (Auto) 0.1 x10^3/uL (0.0-0.2) Micro BC G neg karina Abd , bacteroides Objective Assessment Acute Resp Failure, Pleurx out Leukocytosis - on Steroids Peritonitis - Bacteroides Mar 08 GNR sepsis - 03/12 Tiny GNR - likely anaerobes. larger rods also -ID still pending. Repeat 03/14 neg so far Metastatic ovarian cancer, Ascites s/p paracentesis - Bacteroides fragilis ESRD on HD Ileus/partial SBO LE Doppler neg 03/14 Plan Plan of Care Cont Zosyn, renal dosing Vanc times one 03/14 May need port and HD cath removed am labs f/u CT A/P G neg ID still pending Critically ill Prognosis is poor d/w D/w nursing LISA OLIVER MD Mar 19, 2018 08:13
[2018-03-19] MEDS: FLUTICASONE 50MCG/NASAL SPRAY 16GM BOTTLE. NS SCH (09:00)
[2018-03-19] MEDS: SENNOSIDES 8.6 MG TABLET PO SCH (09:00)
[2018-03-19] MEDS: FERROUS SULFATE ORAL 300 MG/5 ML SOLUTION. PO SCH (09:00)
[2018-03-19] MEDS: MULTIVITAMIN with MINERAL TABLET. PO SCH (09:08)
--- NOTE | 2018-03-19 09:18 | PDOC ---
Subjective: Subjective: Abd might feel better. Objective: Objective: Per RN - took clears yesterday, NG has been clamped, primary asks if okay to remove NG. Has had ~5 stools (some watery, some soft) over the past couple days. not ready for comfort care, etc. Vital Signs: Vital Signs Date Time Temp Pulse Resp B/P (MAP) Pulse Ox O2 Delivery O2 Flow Rate FiO2 03/19/18 06:24 111 27 146/90 (108) 99 Room Air 03/19/18 04:00 98.2 98.2 03/18/18 15:00 9.0 Labs: Laboratory Tests Test 03/19/18 03:45 White Blood Count 20.4 x10^3/uL Red Blood Count 3.27 x10^6/uL Hemoglobin 9.4 g/dL Hematocrit 28.7 % Mean Corpuscular Volume 88 fL Mean Corpuscular Hemoglobin 29 pg Mean Corpuscular Hemoglobin Concent 33 g/dL Red Cell Distribution Width 18.3 % Platelet Count 414 x10^3/uL Neutrophils (%) (Auto) 92 % Lymphocytes (%) (Auto) 4 % Monocytes (%) (Auto) 4 % Eosinophils (%) (Auto) 0 % Basophils (%) (Auto) 0 % Neutrophils # (Auto) 18.7 x10^3uL Lymphocytes # (Auto) 0.9 x10^3/uL Monocytes # (Auto) 0.7 x10^3/uL Eosinophils # (Auto) 0.0 x10^3/uL Basophils # (Auto) 0.1 x10^3/uL Imaging: CT A/P IMPRESSION: 1. Increased consolidation in the left lower lobe with air bronchograms. Considerations include pneumonia, aspiration, or compressive atelectasis. 2. Liver cirrhosis. 3. Splenic lesion is unchanged but incompletely characterized. 4. Moderate abdominal ascites is slightly less. 5. No dilated small bowel. PE: GEN: ill LUNGS: tachypneic, room air HEART: tachycardic ABD: still quiet and distended, might be less uncomfortable NEURO/PSYCH: gives a slight nod, does not speak to me A/P: Metastatic ovarian cancer Resp failure (better), ESRD Sepsis, peritonitis Ileus/SBO - resolved per CT, given clears over the weekend w/ NG clamped -- Okay to remove NG though unfortunately obstructive symptoms may recur. CAROL GOMEZ Mar 19, 2018 09:18
[2018-03-19] MEDS: SERTRALINE 50 MG TABLET. PO SCH (09:35)
[2018-03-19] MEDS: CARVEDILOL 6.25 MG TABLET. PO SCH ×2 (09:36→17:00)
[2018-03-19] MEDS: DEXAMETHASONE 4 MG TABLET PO SCH (09:36)
[2018-03-19] MEDS: cloNIDine HCL 0.1 MG TABLET PO SCH ×2 (09:36→20:50)
[2018-03-19] MEDS: METOPROLOL TARTRATE 5 MG/5 ML VIAL. IVP PRN (09:38)
[2018-03-19] MEDS: HEPARIN for SUB-Q USE 5,000 UNIT/ML VIAL. SQ SCH ×2 (09:39→20:57)
[2018-03-19] MEDS: PANTOPRAZOLE 40 MG TABLET.DR. PO SCH (10:00)
--- NOTE | 2018-03-19 10:43 | NUR ---
7A NG removed per order( G I). Tolerates small sips clear liquids. IV Metoprolol BP -163/103 down to 141/82 5 min after IV med. Essential PO meds crushed/dissolved in H2O /swallowed w/o difficulty. Dialysis delayed until early afternoon. Family and patient informed
[2018-03-19] MEDS ORDERED: IV NORMAL SALINE 1000ML BAG 1,000 ML IV PRN ×2 (11:00)
--- NOTE | 2018-03-19 11:08 | PDOC ---
PULMONARY PROGRESS NOTES Subjective clinically improving off BIPAP Vitals Vital Signs Date Time Temp Pulse Resp B/P (MAP) Pulse Ox O2 Delivery O2 Flow Rate FiO2 03/19/18 09:38 113 163/101 03/19/18 06:24 27 99 Room Air 03/19/18 04:00 98.2 98.2 03/18/18 15:00 9.0 General: Alert, No acute distress Lungs: Other (decrease bs) Cardiovascular: S1 Abdomen: Soft Neuro Exam: Alert Extremities: Other (1+edema) Skin: Warm Labs Laboratory Tests Test 03/19/18 03:45 White Blood Count 20.4 x10^3/uL (4.0-11.0) Red Blood Count 3.27 x10^6/uL (3.50-5.40) Hemoglobin 9.4 g/dL (12.0-15.5) Hematocrit 28.7 % (36.0-47.0) Mean Corpuscular Volume 88 fL (79-100) Mean Corpuscular Hemoglobin 29 pg (25-35) Mean Corpuscular Hemoglobin Concent 33 g/dL (31-37) Red Cell Distribution Width 18.3 % (11.5-14.5) Platelet Count 414 x10^3/uL (140-400) Neutrophils (%) (Auto) 92 % (31-73) Lymphocytes (%) (Auto) 4 % (24-48) Monocytes (%) (Auto) 4 % (0-9) Eosinophils (%) (Auto) 0 % (0-3) Basophils (%) (Auto) 0 % (0-3) Neutrophils # (Auto) 18.7 x10^3uL (1.8-7.7) Lymphocytes # (Auto) 0.9 x10^3/uL (1.0-4.8) Monocytes # (Auto) 0.7 x10^3/uL (0.0-1.1) Eosinophils # (Auto) 0.0 x10^3/uL (0.0-0.7) Basophils # (Auto) 0.1 x10^3/uL (0.0-0.2) Laboratory Tests Test 03/19/18 03:45 White Blood Count 20.4 x10^3/uL (4.0-11.0) Red Blood Count 3.27 x10^6/uL (3.50-5.40) Hemoglobin 9.4 g/dL (12.0-15.5) Hematocrit 28.7 % (36.0-47.0) Mean Corpuscular Volume 88 fL (79-100) Mean Corpuscular Hemoglobin 29 pg (25-35) Mean Corpuscular Hemoglobin Concent 33 g/dL (31-37) Red Cell Distribution Width 18.3 % (11.5-14.5) Platelet Count 414 x10^3/uL (140-400) Neutrophils (%) (Auto) 92 % (31-73) Lymphocytes (%) (Auto) 4 % (24-48) Monocytes (%) (Auto) 4 % (0-9) Eosinophils (%) (Auto) 0 % (0-3) Basophils (%) (Auto) 0 % (0-3) Neutrophils # (Auto) 18.7 x10^3uL (1.8-7.7) Lymphocytes # (Auto) 0.9 x10^3/uL (1.0-4.8) Monocytes # (Auto) 0.7 x10^3/uL (0.0-1.1) Eosinophils # (Auto) 0.0 x10^3/uL (0.0-0.7) Basophils # (Auto) 0.1 x10^3/uL (0.0-0.2) Medications Active Scripts Medications Dose Route/Sig Max Daily Dose Days Date Category Zoloft (Sertraline Hcl) 100 Mg Tablet 150 Mg PO DAILY 03/06/18 Reported Senna Lax (Sennosides) 8.6 Mg Tablet 8.6 Mg PO DAILY 03/06/18 Reported Proair Hfa (Albuterol Sulfate) 8.5 Gm Hfa.aer.ad 2 Puff INH PRN Q6HRS PRN 03/06/18 Reported Miralax (Polyethylene Glycol 3350) 17 Gm Powd.pack 1 Pkt PO HS 03/06/18 Reported Oxycodone Hcl 5 Mg Capsule 20 Mg PO PRN Q4HRS PRN 03/06/18 Reported Oxycodone Hcl 5 Mg Capsule 10 Mg PO PRN Q4HRS PRN 03/06/18 Reported Ondansetron Odt (Ondansetron) 4 Mg Tab.rapdis 8 Mg PO PRN Q8HRS PRN 03/06/18 Reported One-Daily Multi-Vitamin (Multivitamin) 1 Each Tablet 1 Each PO HS 03/06/18 Reported Melatonin 3 Mg Tablet 1 Tab PO QHS 03/06/18 Reported Ativan (Lorazepam) 0.5 Mg Tablet 0.5 Mg PO PRN Q12HRS PRN 03/06/18 Reported Guaifenesin-Codeine Syrup (Guaifenesin/Codeine Phosphate) 118 Ml Liquid 10 Ml PO PRN Q4HRS PRN 03/06/18 Reported Flonase Allergy Relief (Fluticasone Propionate) 9.9 Ml [place].susp 1 Sprays NS DAILY 03/06/18 Reported FENTANYL 50mcg/hr (Fentanyl) 1 Each Patch.td72 1 Patch TP Q3DAYS 03/06/18 Reported Famotidine 40 Mg Tablet 20 Mg PO HS 03/06/18 Reported Dexamethasone 4 Mg Tablet 4 Tab PO DAILY 03/06/18 Reported Clonidine Hcl 0.1 Mg Tablet 0.1 Mg PO BID 03/06/18 Reported Carvedilol 25 Mg Tablet 6.25 Mg PO BIDWMEALS 03/06/18 Reported Calcium Acetate 667 Mg Tablet 667 Mg PO TIDWMEALS 03/06/18 Reported Impression . 1. Progressive hypercapnic and hypoxic respiratory failure secondary to multifactorial etiologies. The patient had progressive metastatic ovarian cancer with congestive heart failure / bilateral effusions, suspected extreme weakness contributing to hypercapnia as well. off BIPAP now 2. End-stage renal disease, on hemodialysis. 3. Metastatic ovarian cancer. 4. History of subdural hematoma. 5. History of gastroesophageal reflux disease. 6. Non-ST elevation myocardial infarction. 7. Depression. 8. Hyperlipidemia. 9. Persistent leukocytosis 10. Met/ Resp acidosis improved. 11. CHRONIC LEFT PLEURA X CATHETER, NOT DRAINING MUCH Plan . 1. Clinically improved. Met/ Resp acidosis improved. 2. prn BiPAP. 3. HD per renal 4. Follow ABGs prn 5. Continue antibiotics per ID 6. Venous Dopplers are negative. 7. Supportive care and follow recommendations of Renal and Oncology. 8. DVT prophylaxis. 9. Stress ulcer prophylaxis. 10. Discussed with RN and 11. TRANSFER TO FLOOR/ REMAINS DNR/DNI RAEGAN MERCHANT MD Mar 19, 2018 11:07
[2018-03-19] MEDS ORDERED: DIALYSIS PATIENT. MC PRN ×2 (11:15)
--- NOTE | 2018-03-19 11:15 | PDOC ---
SUBJECTIVE ROS Comfortable, No complaints , Off pressors OBJECTIVE Vital Signs Vital Signs Date Time Temp Pulse Resp B/P (MAP) Pulse Ox O2 Delivery O2 Flow Rate FiO2 03/19/18 09:38 113 163/101 03/19/18 06:24 27 99 Room Air 03/19/18 04:00 98.2 98.2 03/18/18 15:00 9.0 I & 0 Intake and Output 03/19/18 07:01 Intake Total 2006 ml Output Total 0 ml Balance 2006 ml Intake Oral 60 ml IV Total 1947 ml Output Urine Total 0 ml Drainage Total 0 ml # Bowel Movements 3 PHYSICAL EXAM Physical Exam GENERAL: NAD HEENT: Oral cavity dry. NECK: Supple. LUNGS: Diminished , nonlabored HEART: S1, S2. ABDOMEN: soft, EXTREMITIES: 1+ lower extremity edema. SKIN: warm, no rash. NEUROLOGIC: Awake, answers minimally DIAGNOSIS/ASSESSMENT Assessment & Plan ESRD - [facility] Since Hospitalization have been on MWF schedule Access issues - hemodialysis catheter malfunction multiple times,had this replaced almost 2-3 times. Labs stable ,HD Today as Ordered , Discussed with warehouse receiving supervisor Acute Resp Failure- resolved Metastatic ovarian cancer- not a candidate for further anticancer therapy due to functional status as per Hem/Onc at [facility] and [facility] . Recommended Palliative.Hospice Peritonitis- Ascites s/p paracentesis - Bacteroides fragilis On Abx ,ID following Ileus/partial SBO Critically ill,Prognosis is poor Pt's wants to continue HD despite multiple discussions with by all providers involved in her care. He is the DPOA and healthcare surrogate COMMENT/RELEVANT DATA Meds Current Medications Medications (Trade) Dose Ordered Sig/Nazia Start Time Stop Time Status Last Admin Dose Admin Acetaminophen (Tylenol Supp) 650 mg PRN Q6HRS PRN 03/12/18 08:45 03/12/18 09:27 650 MG Albumin Human 200 ml @ 200 mls/hr 1X PRN PRN 03/16/18 15:00 03/16/18 20:59 DC Alteplase, Recombinant (Cathflo) 2 mg 1X ONCE 03/11/18 18:00 03/11/18 18:01 DC Amino Acids/ Glycerin/ Electrolytes 1,000 ml @ 80 mls/hr [id number] 03/10/18 20:00 03/19/18 09:39 80 MLS/HR Calcium Acetate (Phoslo) 667 mg TIDWMEALS 03/06/18 12:00 03/09/18 12:09 667 MG Calcium Gluconate (Calcium Gluconate) 1,000 mg 1X ONCE 03/05/18 22:15 03/05/18 22:16 DC 03/05/18 23:23 1,000 MG Carvedilol (Coreg) 6.25 mg BIDWMEALS 03/06/18 12:00 03/19/18 09:36 6.25 MG Cefazolin Sodium 50 ml @ 100 mls/hr 1X ONCE 03/06/18 10:30 03/06/18 10:59 DC 03/06/18 10:11 100 MLS/HR Ceftriaxone Sodium (Rocephin) 1 gm Q24H 03/13/18 10:30 03/13/18 10:34 DC Clonidine HCl (Catapres) 0.1 mg BID 03/06/18 12:00 03/19/18 09:36 0.1 MG Darbepoetin Taran (Aranesp) 60 mcg WEEKLYHS 03/06/18 21:00 03/13/18 21:03 60 MCG Dexamethasone (Decadron) 8 mg DAILY 03/13/18 09:30 03/19/18 09:36 8 MG Famotidine (Pepcid) 20 mg QHS 03/06/18 21:00 03/07/18 13:15 DC 03/06/18 20:51 20 MG Fentanyl (Duragesic 50mcg/ Hr Patch) 1 patch Q72H 03/06/18 21:30 03/18/18 23:10 1 PATCH Fentanyl Citrate (Fentanyl 2ml Vial) 100 mcg 1X ONCE 03/06/18 10:30 03/06/18 10:35 DC 03/06/18 10:11 100 MCG Ferrous Sulfate (Iron Oral Solution) 300 mg DAILY 03/08/18 10:30 03/09/18 08:20 300 MG Fluticasone Propionate (Flonase) 1 spray DAILY 03/06/18 12:00 03/06/18 12:16 1 SPRAY Guaifenesin/ Codeine Phosphate (Robitussin Ac) 10 ml PRN Q4HRS PRN 03/06/18 11:45 Heparin Sodium (Porcine) (Hep Lock Adult) 500 unit 1X ONCE 1/6/19 18:00 03/11/18 18:01 DC 03/11/18 18:20 500 UNIT Heparin Sodium (Porcine) (Heparin Sodium) 5,000 unit BID 03/14/18 12:00 03/19/18 09:39 5,000 UNIT Hydromorphone HCl (Dilaudid) 1 mg PRN Q4HRS PRN 03/11/18 11:45 03/18/18 11:46 1 MG Info (PHARMACY MONITORING -- do not chart) 1 each PRN DAILY PRN 03/16/18 15:00 Lidocaine/ Epinephrine (LIDOCAINE 1%-EPI 1:100,000 Multi-Dose) 20 ml 1X ONCE 03/06/18 10:30 03/06/18 10:35 DC 03/06/18 10:09 9 ML Lorazepam (Ativan) 0.5 mg PRN Q4HRS PRN 03/14/18 17:00 03/18/18 01:30 0.5 MG Magnesium Sulfate 50 ml @ 25 mls/hr PRN DAILY PRN 03/06/18 13:45 Metoprolol Tartrate (Lopressor Vial) 5 mg Q6HRS PRN 03/11/18 18:00 03/19/18 09:38 5 MG Metronidazole 100 ml @ 100 mls/hr Q8HRS 03/13/18 11:00 03/16/18 07:19 DC 03/16/18 06:19 100 MLS/HR Midazolam HCl (Versed) 2 mg 1X ONCE 03/06/18 10:30 03/06/18 10:35 DC 03/06/18 10:11 2 MG Multivitamins (Thera M Plus) 1 tab DAILY 03/06/18 12:00 03/09/18 08:20 1 TAB Non-Formulary Medication (Melatonin ) 1 tab QHS 03/06/18 21:00 UNV Norepinephrine Bitartrate 250 ml @ 1.875 mls/ hr CONT PRN 03/16/18 16:00 03/16/18 15:58 3.75 MLS/HR Ondansetron HCl (Zofran Odt) 8 mg PRN Q8HRS PRN 03/06/18 11:30 03/11/18 01:41 8 MG Ondansetron HCl (Zofran) 4 mg 1X ONCE 03/05/18 22:45 03/05/18 22:55 DC 03/05/18 22:55 4 MG Oxycodone HCl (Roxicodone) 20 mg PRN Q4HRS PRN 03/06/18 06:15 Pantoprazole Sodium (PROTONIX VIAL for IV PUSH) 40 mg DAILYAC 03/13/18 07:30 03/19/18 09:19 DC 03/18/18 14:26 40 MG Pantoprazole Sodium (Protonix) 40 mg DAILYAC 03/19/18 10:00 Piperacillin Sod/ Tazobactam Sod 2.25 gm/Sodium Chloride 50 ml @ 100 mls/hr Q8HRS 03/13/18 14:00 03/19/18 06:21 100 MLS/HR Piperacillin Sod/ Tazobactam Sod 3.375 gm/Sodium Chloride 50 ml @ 100 mls/hr Q6HRS 03/13/18 12:00 03/13/18 12:00 DC Polyethylene Glycol (miraLAX PACKET) 17 gm QHS 03/06/18 21:00 03/10/18 21:04 17 GM Prochlorperazine Edisylate (Compazine) 10 mg PRN Q6HRS PRN 03/06/18 12:45 03/15/18 07:03 10 MG Sennosides (Senna) 8.6 mg DAILY 03/06/18 12:00 03/09/18 08:20 8.6 MG Sertraline HCl (Zoloft) 150 mg DAILY 03/06/18 12:00 03/19/18 09:35 150 MG Sodium Polystyrene Sulfonate (Kayexalate) 30 gm 1X ONCE 03/05/18 22:15 03/05/18 22:16 DC 03/05/18 23:23 30 GM Sodium Bicarbonate (Sodium Bicarb Adult 8.4% Syr) 50 meq 1X ONCE 03/16/18 08:30 03/16/18 08:32 DC 03/16/18 10:15 50 MEQ Sodium Chloride 1,000 ml @ 400 mls/hr Q2H30M PRN 03/16/18 14:59 03/17/18 02:58 DC Sodium Chloride (Normal Saline Flush) 10 ml 1X PRN PRN 03/08/18 15:00 03/09/18 14:59 DC Throat Lozenges (Chloraseptic) 1 spray PRN Q2HR PRN 03/12/18 08:45 03/12/18 09:26 1 SPRAY Vancomycin HCl 1.25 gm/Sodium Chloride 250 ml @ 166.667 mls/hr 1X ONCE 03/14/18 08:15 03/14/18 09:44 DC 03/14/18 09:02 166.667 MLS/HR Lab Laboratory Tests Test 03/19/18 03:45 White Blood Count 20.4 x10^3/uL (4.0-11.0) Red Blood Count 3.27 x10^6/uL (3.50-5.40) Hemoglobin 9.4 g/dL (12.0-15.5) Hematocrit 28.7 % (36.0-47.0) Mean Corpuscular Volume 88 fL (79-100) Mean Corpuscular Hemoglobin 29 pg (25-35) Mean Corpuscular Hemoglobin Concent 33 g/dL (31-37) Red Cell Distribution Width 18.3 % (11.5-14.5) Platelet Count 414 x10^3/uL (140-400) Neutrophils (%) (Auto) 92 % (31-73) Lymphocytes (%) (Auto) 4 % (24-48) Monocytes (%) (Auto) 4 % (0-9) Eosinophils (%) (Auto) 0 % (0-3) Basophils (%) (Auto) 0 % (0-3) Neutrophils # (Auto) 18.7 x10^3uL (1.8-7.7) Lymphocytes # (Auto) 0.9 x10^3/uL (1.0-4.8) Monocytes # (Auto) 0.7 x10^3/uL (0.0-1.1) Eosinophils # (Auto) 0.0 x10^3/uL (0.0-0.7) Basophils # (Auto) 0.1 x10^3/uL (0.0-0.2) Results All relevant outside records, renal labs, imaging studies, telemetry/EKG's were reviewed. GUILLERMO GRIGGS MD Mar 19, 2018 11:15
--- NOTE | 2018-03-19 12:43 | PDOC2 ---
PALLIATIVE CARE Palliative Care Note Palliative Care Patient more alert today. Voice quiet --visiting with friend Clarisa. Patient wants to continue current treatment plan including dialysis. Myoclonic jerks noted. Consider changing opioids. Patient has received Dilaudid 1mg x 2 since midnight. Total of 4 doses last 24 hours. Plan: Continue current treatment plan. Patient want to get home eventually. ANITA YI Mar 19, 2018 12:43
--- NOTE | 2018-03-19 13:12 | PDOC ---
PROGRESS NOTES Chief Complaint Chief Complaint Acute hypoxemic respiratory failure failing Bipap, prognosis very grim given metastatic Ovarian Ca Ovarian Cancer, METASTATIC End Stage Renal Disease, HD dependent Tachycardia small bowel obstruction by ct-->KUB today Ascites - s/p paracentesis (800cc) CT a/p with no dilated will start CLD leukocytosis, with bacteremia, peritonitis, and on decadron plan: fu with onco, renal, pulm, id still on iv abx ok to eat , Ngt OUt may dc to rehab still on PPN will not do chemo, but still on decadron as per onco. pt refused hospice for now , PAT consulted, pt want cont HD. ok transfer out of ICU History of Present Illness History of Present Illness pt is ok with clear liquid diet, had BM and flatus, ABD distention better. NGT out. denies pain. looks very week. will not do chemo, but want HD. Vitals Vitals Vital Signs Date Time Temp Pulse Resp B/P (MAP) Pulse Ox O2 Delivery O2 Flow Rate FiO2 03/19/18 11:00 100 140/88 (105) Room Air 03/19/18 10:00 27 03/19/18 07:00 98.0 98.0 03/19/18 06:24 99 03/18/18 15:00 9.0 Physical Exam Physical Exam GENERAL: Propped up in bed, weak appearing, quiet and withdrawn HEENT: Pupils equal and reactive. Oral cavity dry. NGT NECK: Supple. LUNGS: Diminished aeration, nonlabored HEART: S1, S2. ABDOMEN: Distended, hypoactive BM, soft, no grimace to light palpation EXTREMITIES: Without clubbing, cyanosis. 1+ lower extremity edema. SKIN: Warm to touch without any obvious rash. NEUROLOGIC: Awake, nonresponsive to questions Port & HDC clean General: Alert, Oriented X3, Cooperative, No acute distress, moderate distress Heart: Regular rate, Normal S1, Normal S2, No murmurs, Gallops, Other (TACHY RATE 116) Lungs: Other (decrease bs) Abdomen: Normal bowel sounds, Soft, No tenderness, No hepatosplenomegaly, No masses Extremities: No clubbing, No cyanosis, Normal pulses, No tenderness/swelling, Other (3+ edema) Labs LABS Laboratory Tests Test 03/19/18 03:45 White Blood Count 20.4 x10^3/uL (4.0-11.0) Red Blood Count 3.27 x10^6/uL (3.50-5.40) Hemoglobin 9.4 g/dL (12.0-15.5) Hematocrit 28.7 % (36.0-47.0) Mean Corpuscular Volume 88 fL (79-100) Mean Corpuscular Hemoglobin 29 pg (25-35) Mean Corpuscular Hemoglobin Concent 33 g/dL (31-37) Red Cell Distribution Width 18.3 % (11.5-14.5) Platelet Count 414 x10^3/uL (140-400) Neutrophils (%) (Auto) 92 % (31-73) Lymphocytes (%) (Auto) 4 % (24-48) Monocytes (%) (Auto) 4 % (0-9) Eosinophils (%) (Auto) 0 % (0-3) Basophils (%) (Auto) 0 % (0-3) Neutrophils # (Auto) 18.7 x10^3uL (1.8-7.7) Lymphocytes # (Auto) 0.9 x10^3/uL (1.0-4.8) Monocytes # (Auto) 0.7 x10^3/uL (0.0-1.1) Eosinophils # (Auto) 0.0 x10^3/uL (0.0-0.7) Basophils # (Auto) 0.1 x10^3/uL (0.0-0.2) Assessment and Plan Assessmemt and Plan Problems Medical Problems: (1) Dialysis catheter clot or failure Status: Acute (2) Serum potassium elevated Status: Acute Comment Review of Relevant I have reviewed the following items arden (where applicable) has been applied. Labs Laboratory Tests Test 03/19/18 03:45 White Blood Count 20.4 x10^3/uL (4.0-11.0) Red Blood Count 3.27 x10^6/uL (3.50-5.40) Hemoglobin 9.4 g/dL (12.0-15.5) Hematocrit 28.7 % (36.0-47.0) Mean Corpuscular Volume 88 fL (79-100) Mean Corpuscular Hemoglobin 29 pg (25-35) Mean Corpuscular Hemoglobin Concent 33 g/dL (31-37) Red Cell Distribution Width 18.3 % (11.5-14.5) Platelet Count 414 x10^3/uL (140-400) Neutrophils (%) (Auto) 92 % (31-73) Lymphocytes (%) (Auto) 4 % (24-48) Monocytes (%) (Auto) 4 % (0-9) Eosinophils (%) (Auto) 0 % (0-3) Basophils (%) (Auto) 0 % (0-3) Neutrophils # (Auto) 18.7 x10^3uL (1.8-7.7) Lymphocytes # (Auto) 0.9 x10^3/uL (1.0-4.8) Monocytes # (Auto) 0.7 x10^3/uL (0.0-1.1) Eosinophils # (Auto) 0.0 x10^3/uL (0.0-0.7) Basophils # (Auto) 0.1 x10^3/uL (0.0-0.2) Laboratory Tests Test 03/19/18 03:45 White Blood Count 20.4 x10^3/uL (4.0-11.0) Red Blood Count 3.27 x10^6/uL (3.50-5.40) Hemoglobin 9.4 g/dL (12.0-15.5) Hematocrit 28.7 % (36.0-47.0) Mean Corpuscular Volume 88 fL (79-100) Mean Corpuscular Hemoglobin 29 pg (25-35) Mean Corpuscular Hemoglobin Concent 33 g/dL (31-37) Red Cell Distribution Width 18.3 % (11.5-14.5) Platelet Count 414 x10^3/uL (140-400) Neutrophils (%) (Auto) 92 % (31-73) Lymphocytes (%) (Auto) 4 % (24-48) Monocytes (%) (Auto) 4 % (0-9) Eosinophils (%) (Auto) 0 % (0-3) Basophils (%) (Auto) 0 % (0-3) Neutrophils # (Auto) 18.7 x10^3uL (1.8-7.7) Lymphocytes # (Auto) 0.9 x10^3/uL (1.0-4.8) Monocytes # (Auto) 0.7 x10^3/uL (0.0-1.1) Eosinophils # (Auto) 0.0 x10^3/uL (0.0-0.7) Basophils # (Auto) 0.1 x10^3/uL (0.0-0.2) Microbiology 03/14/18 Blood Culture - Final, Complete NO GROWTH AFTER 5 DAYS 03/08/18 Anaerobic/Aerobic Culture - Final, Complete 03/08/18 Anaerobic Culture Result 1 (TIMOTHY) - Final, Complete 03/08/18 Aerobic Culture - Final, Complete 03/08/18 Aerobic Culture Result 1 (TIMOTHY) - Final, Complete 03/08/18 Gram Stain - Final, Complete 03/08/18 Gram Stain Result 1 (TIMOTHY) - Final, Complete 03/08/18 Gram Stain Result 2 (TIMOTHY) - Final, Complete Medications Current Medications Ondansetron HCl (Zofran) 4 mg PRN Q8HRS PRN IV NAUSEA/VOMITING Last administered on 03/06/18at 05:34; Start 03/05/18 at 22:00; Stop 03/06/18 at 21:59 ; Status DC Fentanyl Citrate (Fentanyl 2ml Vial) 50 mcg PRN Q1HR PRN IV PAIN Last administered on 03/06/18at 05:35; Start 03/05/18 at 22:00; Stop 03/06/18 at 21:59 ; Status DC Calcium Gluconate (Calcium Gluconate) 1,000 mg 1X ONCE IVP Last administered on 03/05/18at 23:23; Start 03/05/18 at 22:15; Stop 03/05/18 at 22:16; Status DC Sodium Bicarbonate (Sodium Bicarb Adult 8.4% Syr) 50 meq 1X ONCE IV Last administered on 03/05/18at 23:23; Start 03/05/18 at 22:15; Stop 03/05/18 at 22 :16; Status DC Sodium Polystyrene Sulfonate (Kayexalate) 30 gm 1X ONCE PO Last administered on 03/05/18at 23:23; Start 03/05/18 at 22:15; Stop 03/05/18 at 22:16; Status DC Ondansetron HCl (Zofran) 4 mg 1X ONCE IV Last administered on 03/05/18at 22:55 ; Start 03/05/18 at 22:45; Stop 03/05/18 at 22:55; Status DC Prochlorperazine Edisylate (Compazine) 10 mg PRN Q6HRS PRN IM NAUSEA/VOMITING; Start 03/06/18 at 06:15; Stop 03/06/18 at 12:32; Status DC Oxycodone HCl (Roxicodone) 10 mg PRN Q4HRS PRN PO MILD - MODERATE PAIN Last administered on 03/11/18at 00:24; Start 03/06/18 at 06:15 Oxycodone HCl (Roxicodone) 20 mg PRN Q4HRS PRN PO SEVERE PAIN; Start 03/06/18 at 06:15 Lidocaine/ Epinephrine (LIDOCAINE 1%-EPI 1:100,000 Multi-Dose) 20 ml STK-MED ONCE .ROUTE ; Start 03/06/18 at 09:11; Stop 03/06/18 at 09:12; Status DC Cefazolin Sodium 50 ml @ As Directed STK-MED ONCE IV ; Start 03/06/18 at 09:34; Stop 03/06/18 at 09:35; Status DC Midazolam HCl (Versed) 2 mg STK-MED ONCE .ROUTE ; Start 03/06/18 at 09:34; Stop 03/06/18 at 09:35; Status DC Fentanyl Citrate (Fentanyl 2ml Vial) 100 mcg STK-MED ONCE .ROUTE ; Start at 09:34; Stop 03/06/18 at 09:35; Status DC Heparin Sodium (Porcine) (Heparin Sodium) 10,000 unit STK-MED ONCE .ROUTE ; Start 03/06/18 at 09:44; Stop 03/06/18 at 09:46; Status DC Midazolam HCl (Versed) 2 mg 1X ONCE IV Last administered on 03/06/18at 10:11; Start 03/06/18 at 10:30; Stop 03/06/18 at 10:35; Status DC Fentanyl Citrate (Fentanyl 2ml Vial) 100 mcg 1X ONCE IV Last administered on at 10:11; Start 03/06/18 at 10:30; Stop 03/06/18 at 10:35; Status DC Lidocaine/ Epinephrine (LIDOCAINE 1%-EPI 1:100,000 Multi-Dose) 20 ml 1X ONCE IJ Last administered on 03/06/18at 10:09; Start 03/06/18 at 10:30; Stop 03/06/18 at 10:35; Status DC Cefazolin Sodium 50 ml @ 100 mls/hr 1X ONCE IV Last administered on 03/06/18at 10:11; Start 03/06/18 at 10:30; Stop 03/06/18 at 10:59; Status DC Heparin Sodium (Porcine) (Heparin Sodium) 4,200 unit 1X ONCE INT CAT Last administered on 03/06/18 10:11; Start 03/06/18 at 10:30; Stop 03/06/18 at 10:35; Status DC Clonidine HCl (Catapres) 0.1 mg BID PO Last administered on 03/19/18 09:36; Start 03/06/18 at 12:00 Dexamethasone (Decadron) 16 mg DAILY PO Last administered on 03/07/18 13:12; Start 03/06/18 at 12:00; Stop 03/08/18 at 09:00; Status DC Fentanyl (Duragesic 50mcg/ Hr Patch) 1 patch Q3DAYS TD ; Start 03/06/18 at 21:00 ; Stop 03/06/18 at 21:05; Status DC Lorazepam (Ativan) 0.5 mg PRN Q12HRS PRN PO ANXIETY / AGITATION Last administered on 03/19/18 09:36; Start 03/06/18 at 11:30 Ondansetron HCl (Zofran Odt) 8 mg PRN Q8HRS PRN PO NAUSEA/VOMITING Last administered on 03/11/18 01:41; Start 03/06/18 at 11:30 Calcium Acetate (Phoslo) 667 mg TIDWMEALS PO Last administered on 03/09/18 12: 09; Start 03/06/18 at 12:00 Carvedilol (Coreg) 6.25 mg BIDWMEALS PO Last administered on 03/19/18 09:36; Start 03/06/18 at 12:00 Famotidine (Pepcid) 20 mg QHS PO Last administered on 03/06/18 20:51; Start 03/06/18 at 21:00; Stop 03/07/18 at 13:15; Status DC Fluticasone Propionate (Flonase) 1 spray DAILY NS Last administered on 12:16; Start 03/06/18 at 12:00 Guaifenesin/ Codeine Phosphate (Robitussin Ac) 10 ml PRN Q4HRS PRN PO COUGH; Start 03/06/18 at 11:45 Non-Formulary Medication (Melatonin ) 1 tab QHS PO ; Start 03/06/18 at 21:00; Status UNV Multivitamins (Thera M Plus) 1 tab DAILY PO Last administered on 03/09/18 08:20 ; Start 03/06/18 at 12:00 Polyethylene Glycol (miraLAX PACKET) 17 gm QHS PO Last administered on at 21:04; Start 03/06/18 at 21:00 Sennosides (Senna) 8.6 mg DAILY PO Last administered on 03/09/18 08:20; Start 03/06/18 at 12:00 Sertraline HCl (Zoloft) 150 mg DAILY PO Last administered on 03/19/18at 09:35; Start 03/06/18 at 12:00 Prochlorperazine Edisylate (Compazine) 10 mg PRN Q6HRS PRN IV NAUSEA/VOMITING Last administered on 03/15/18at 07:03; Start 03/06/18 at 12:45 Darbepoetin Taran (Aranesp) 60 mcg [id number] SQ Last administered on 03/13/18 21: 03; Start 03/06/18 at 21:00 Magnesium Sulfate 50 ml @ 25 mls/hr PRN DAILY PRN IV for Mag < 1.7 on am labs; Start 03/06/18 at 13:45 Sodium Chloride 1,000 ml @ 1,000 mls/hr Q1H PRN IV hypotension; Start 03/06/18 at 12:30; Stop 03/06/18 at 18:29; Status DC Sodium Chloride 1,000 ml @ 400 mls/hr Q2H30M PRN IV PATENCY; Start 03/06/18 at 12:30; Stop 03/06/18 at 20:00; Status DC Info (PHARMACY MONITORING -- do not chart) 1 each PRN DAILY PRN MC SEE COMMENTS ; Start 03/06/18 at 15:00; Status UNV Info (PHARMACY MONITORING -- do not chart) 1 each PRN DAILY PRN MC SEE COMMENTS ; Start 03/06/18 at 15:00; Stop 1/19 at 16:17; Status DC Fentanyl (Duragesic 50mcg/ Hr Patch) 1 patch Q72H TD Last administered on at 23:10; Start 03/06/18 at 21:30 Sodium Chloride 1,000 ml @ 1,000 mls/hr Q1H PRN IV hypotension; Start 03/07/18 at 07:51; Stop 03/07/18 at 13:50; Status DC Albumin Human 200 ml @ 200 mls/hr 1X PRN PRN IV Hypotension; Start 03/07/18 at 08:00; Stop 03/07/18 at 13:59; Status DC Sodium Chloride 1,000 ml @ 400 mls/hr Q2H30M PRN IV PATENCY; Start 03/07/18 at 07:51; Stop 03/07/18 at 19:50; Status DC Info (PHARMACY MONITORING -- do not chart) 1 each PRN DAILY PRN MC SEE COMMENTS ; Start 03/07/18 at 08:00; Stop 03/09/18 at 18:51; Status DC Info (PHARMACY MONITORING -- do not chart) 1 each PRN DAILY PRN MC SEE COMMENTS ; Start 03/07/18 at 08:00; Status UNV Dexamethasone (Decadron) 12 mg DAILY PO ; Start 03/07/18 at 09:30; Stop 03/07/18 at 09:33; Status DC Dexamethasone (Decadron) 12 mg DAILY PO Last administered on 03/09/18at 08:20; Start 03/09/18 at 09:00; Stop 03/13/18 at 09:17; Status DC Pantoprazole Sodium (Protonix) 40 mg DAILYAC PO ; Start 03/08/18 at 07:30; Stop 03/08/18 at 07:30; Status DC Pantoprazole Sodium (PROTONIX VIAL for IV PUSH) 40 mg DAILYAC IVP Last administered on 03/09/18at 08:19; Start 03/08/18 at 07:30; Stop 03/09/18 at 12:24; Status DC Ferrous Sulfate (Iron Oral Solution) 300 mg DAILY PO Last administered on at 08:20; Start 03/08/18 at 10:30 Albumin Human 100 ml @ 100 mls/hr Q6HRS IV Last administered on 03/09/18at 17:28 ; Start 03/08/18 at 12:00; Stop 03/09/18 at 18:59; Status DC Sodium Chloride 1,000 ml @ 1,000 mls/hr Q1H PRN IV hypotension; Start 03/08/18 at 15:00; Stop 03/08/18 at 21:21; Status DC Sodium Chloride (Normal Saline Flush) 10 ml 1X PRN PRN IV AP catheter pack; Start 03/08/18 at 15:00; Stop 03/09/18 at 14:59; Status DC Sodium Chloride (Normal Saline Flush) 10 ml 1X PRN PRN IV BOX SORTER catheter pack; Start 03/08/18 at 15:00; Stop 03/09/18 at 14:59; Status DC Info (PHARMACY MONITORING -- do not chart) 1 each PRN DAILY PRN MC SEE COMMENTS ; Start 03/08/18 at 21:15; Status Cancel Info (PHARMACY MONITORING -- do not chart) 1 each PRN DAILY PRN MC SEE COMMENTS ; Start 03/08/18 at 21:15 Pantoprazole Sodium (Protonix) 40 mg DAILYAC PO Last administered on 03/10/18at 08:20; Start 03/09/18 at 16:30; Stop 03/12/18 at 10:38; Status DC Sodium Chloride 1,000 ml @ 1,000 mls/hr Q1H PRN IV hypotension; Start 03/10/18 at 08:30; Stop 03/10/18 at 14:29; Status DC Sodium Chloride 1,000 ml @ 400 mls/hr Q2H30M PRN IV PATENCY; Start 03/10/18 at 08:30; Stop 03/10/18 at 20:29; Status DC Info (PHARMACY MONITORING -- do not chart) 1 each PRN DAILY PRN MC SEE COMMENTS ; Start 03/10/18 at 10:15; Status UNV Info (PHARMACY MONITORING -- do not chart) 1 each PRN DAILY PRN MC SEE COMMENTS ; Start 03/10/18 at 10:15; Status UNV Alteplase, Recombinant (Cathflo) 2 mg 1X ONCE INT CAT Last administered on 03/10at 14:04; Start 03/10/18 at 11:45; Stop 03/10/18 at 11:46; Status DC Amino Acids/ Glycerin/ Electrolytes 1,000 ml @ 80 mls/hr [id number] IV Last administered on 03/19/18at 09:39; Start 03/10/18 at 20:00 Alteplase, Recombinant (Cathflo) 2 mg 1X ONCE INT CAT Last administered on 03/10at 21:05; Start 03/10/18 at 20:00; Stop 03/10/18 at 20:16; Status DC Metoprolol Tartrate (Lopressor Vial) 5 mg 1X ONCE IVP Last administered on 03/11at 12:01; Start 03/11/18 at 12:00; Stop 03/11/18 at 12:01; Status DC Hydromorphone HCl (Dilaudid) 1 mg PRN Q4HRS PRN IV PAIN Last administered on at 11:46; Start 03/11/18 at 11:45 Sodium Chloride 500 ml @ 500 mls/hr 1X ONCE IV Last administered on 03/11/18at 12:02; Start 03/11/18 at 11:45; Stop 03/11/18 at 12:45; Status DC Metoprolol Tartrate (Lopressor Vial) 5 mg Q6HRS IVP ; Start 03/11/18 at 18:00; Stop 03/11/18 at 18:00; Status DC Alteplase, Recombinant (Cathflo) 2 mg 1X ONCE INT CAT ; Start 03/11/18 at 18:00 ; Stop 03/11/18 at 18:01; Status DC Metoprolol Tartrate (Lopressor Vial) 5 mg Q6HRS PRN IVP TACHYCARDIA Last administered on 03/19/18 09:38; Start 03/11/18 at 18:00 Heparin Sodium (Porcine) (Hep Lock Adult) 500 unit 1X ONCE IV Last administered on 03/11/18at 18:20; Start 03/11/18 at 18:00; Stop 03/11/18 at 18:01; Status DC Acetaminophen (Tylenol Supp) 650 mg PRN Q6HRS PRN AL MILD PAIN / TEMP Last administered on 03/12/18 09:27; Start 03/12/18 at 08:45 Throat Lozenges (Chloraseptic) 1 spray PRN Q2HR PRN PO SORE THROAT Last administered on 1/7/19at 09:26; Start 03/12/18 at 08:45 Pantoprazole Sodium (PROTONIX VIAL for IV PUSH) 40 mg DAILYAC IVP Last administered on 03/18/18at 14:26; Start 03/13/18 at 07:30; Stop 03/19/18 at 09:19 ; Status DC Dexamethasone (Decadron) 8 mg DAILY PO Last administered on 03/19/18at 09:36; Start 03/13/18 at 09:30 Ceftriaxone Sodium (Rocephin) 1 gm Q24H IVP ; Start 03/13/18 at 10:30; Stop at 10:34; Status DC Piperacillin Sod/ Tazobactam Sod 3.375 gm/Sodium Chloride 50 ml @ 100 mls/hr Q6HRS IV ; Start 03/13/18 at 12:00; Stop 03/13/18 at 12:00; Status DC Sodium Chloride 1,000 ml @ 1,000 mls/hr Q1H PRN IV hypotension; Start 03/13/18 at 10:05; Stop 03/13/18 at 16:04; Status DC Albumin Human 200 ml @ 200 mls/hr 1X PRN PRN IV Hypotension; Start 03/13/18 at 10:15; Stop 03/13/18 at 16:14; Status DC Info (PHARMACY MONITORING -- do not chart) 1 each PRN DAILY PRN MC SEE COMMENTS ; Start 03/13/18 at 10:15; Status UNV Info (PHARMACY MONITORING -- do not chart) 1 each PRN DAILY PRN MC SEE COMMENTS ; Start 03/13/18 at 10:15; Status UNV Metronidazole 100 ml @ 100 mls/hr Q8HRS IV ; Start 03/13/18 at 10:45; Stop at 10:45; Status DC Piperacillin Sod/ Tazobactam Sod 2.25 gm/Sodium Chloride 50 ml @ 100 mls/hr Q8HRS IV Last administered on 03/19/18at 06:21; Start 03/13/18 at 14:00 Metronidazole 100 ml @ 100 mls/hr Q8HRS IV Last administered on 03/16/18at 06: 19; Start 03/13/18 at 11:00; Stop 03/16/18 at 07:19; Status DC Vancomycin HCl 1.25 gm/Sodium Chloride 250 ml @ 166.667 mls/hr 1X ONCE IV Last administered on 03/14/18at 09:02; Start 03/14/18 at 08:15; Stop 03/14/18 at 09: 44; Status DC Sodium Bicarbonate (Sodium Bicarb Adult 8.4% Syr) 100 meq 1X ONCE IV Last administered on 03/14/18at 11:00; Start 03/14/18 at 10:45; Stop 03/14/18 at 10:46; Status DC Heparin Sodium (Porcine) (Heparin Sodium) 5,000 unit BID SQ Last administered on 03/19/18at 09:39; Start 03/14/18 at 12:00 Lorazepam (Ativan) 0.5 mg PRN Q4HRS PRN IV ANXIETY / AGITATION Last administered on 03/18/18at 01:30; Start 03/14/18 at 17:00 Sodium Bicarbonate (Sodium Bicarb Adult 8.4% Syr) 50 meq 1X ONCE IV Last administered on 03/16/18at 10:15; Start 03/16/18 at 08:30; Stop 03/16/18 at 08:32 ; Status DC Sodium Chloride 1,000 ml @ 1,000 mls/hr Q1H PRN IV hypotension; Start 03/16/18 at 14:59; Stop 03/16/18 at 20:58; Status DC Albumin Human 200 ml @ 200 mls/hr 1X PRN PRN IV Hypotension; Start 03/16/18 at 15:00; Stop 03/16/18 at 20:59; Status DC Sodium Chloride 1,000 ml @ 400 mls/hr Q2H30M PRN IV PATENCY; Start 03/16/18 at 14:59; Stop 03/17/18 at 02:58; Status DC Info (PHARMACY MONITORING -- do not chart) 1 each PRN DAILY PRN MC SEE COMMENTS ; Start 03/16/18 at 15:00; Status UNV Info (PHARMACY MONITORING -- do not chart) 1 each PRN DAILY PRN MC SEE COMMENTS ; Start 03/16/18 at 15:00; Status Cancel Norepinephrine Bitartrate 250 ml @ 1.875 mls/ hr CONT PRN IV SEE I/O RECORD Last administered on 03/16/18at 15:58; Start 03/16/18 at 16:00 Pantoprazole Sodium (Protonix) 40 mg DAILYAC PO ; Start 03/19/18 at 10:00 Sodium Chloride 1,000 ml @ 1,000 mls/hr Q1H PRN IV hypotension; Start 03/19/18 at 11:00; Stop 03/19/18 at 19:00 Sodium Chloride 1,000 ml @ 400 mls/hr Q2H30M PRN IV PATENCY; Start 03/19/18 at 11:00; Stop 03/19/18 at 19:00 Info (PHARMACY MONITORING -- do not chart) 1 each PRN DAILY PRN MC SEE COMMENTS ; Start 03/19/18 at 11:15; Status UNV Info (PHARMACY MONITORING -- do not chart) 1 each PRN DAILY PRN MC SEE COMMENTS ; Start 03/19/18 at 11:15; Status UNV Active Scripts Active Reported Zoloft (Sertraline Hcl) 100 Mg Tablet 150 Mg PO DAILY Senna Lax (Sennosides) 8.6 Mg Tablet 8.6 Mg PO DAILY Proair Hfa (Albuterol Sulfate) 8.5 Gm Hfa.aer.ad 2 Puff INH PRN Q6HRS PRN Miralax (Polyethylene Glycol 3350) 17 Gm Powd.pack 1 Pkt PO HS Oxycodone Hcl 5 Mg Capsule 20 Mg PO PRN Q4HRS PRN Oxycodone Hcl 5 Mg Capsule 10 Mg PO PRN Q4HRS PRN Ondansetron Odt (Ondansetron) 4 Mg Tab.rapdis 8 Mg PO PRN Q8HRS PRN One-Daily Multi-Vitamin (Multivitamin) 1 Each Tablet 1 Each PO HS Melatonin 3 Mg Tablet 1 Tab PO QHS Ativan (Lorazepam) 0.5 Mg Tablet 0.5 Mg PO PRN Q12HRS PRN Guaifenesin-Codeine Syrup (Guaifenesin/Codeine Phosphate) 118 Ml Liquid 10 Ml PO PRN Q4HRS PRN Flonase Allergy Relief (Fluticasone Propionate) 9.9 Ml Justin.susp 1 Sprays NS DAILY FENTANYL 50mcg/hr (Fentanyl) 1 Each Patch.td72 1 Patch TP Q3DAYS Famotidine 40 Mg Tablet 20 Mg PO HS Dexamethasone 4 Mg Tablet 4 Tab PO DAILY Clonidine Hcl 0.1 Mg Tablet 0.1 Mg PO BID Carvedilol 25 Mg Tablet 6.25 Mg PO BIDWMEALS Calcium Acetate 667 Mg Tablet 667 Mg PO TIDWMEALS Vitals/I & O Vital Sign - Last 24 Hours 03/18/18 03/18/18 03/18/18 03/18/18 14:00 15:00 16:00 17:00 Pulse 102 100 B/P (MAP) 128/77 (94) 149/92 (111) Pulse Ox 98 94 O2 Delivery Venturi Mask Venturi Mask Room Air Room Air O2 Flow Rate 9.0 9.0 03/18/18 03/18/18 03/18/18 03/18/18 18:00 19:00 20:00 20:00 Temp 98.2 98.2 Pulse 102 114 Resp 30 27 33 B/P (MAP) 136/84 (101) 119/96 (104) 156/99 (118) Pulse Ox 98 96 96 O2 Delivery Room Air Room Air Room Air Room Air 03/18/18 03/18/18 03/18/18 03/18/18 21:00 22:00 23:00 23:09 Temp 98.2 98.2 Pulse 108 112 113 116 Resp 32 34 32 B/P (MAP) 153/95 (114) 156/95 (115) 136/80 (98) 155/91 Pulse Ox 97 97 97 O2 Delivery Room Air Room Air Room Air 03/18/18 03/19/18 03/19/18 03/19/18 23:10 00:00 00:00 01:00 Pulse 113 113 Resp 34 32 33 B/P (MAP) 136/80 (98) 155/96 (115) Pulse Ox 96 97 98 O2 Delivery Room Air Room Air Room Air Room Air 03/19/18 03/19/18 03/19/18 03/19/18 02:00 03:00 03:10 04:00 Temp 98.2 98.2 Pulse 114 119 113 Resp 33 28 34 B/P (MAP) 147/96 (113) 151/93 (112) 144/97 (113) Pulse Ox 98 97 98 98 O2 Delivery Room Air Room Air Room Air Room Air 03/19/18 03/19/18 03/19/18 03/19/18 04:00 05:00 06:24 07:00 Temp 98.0 98.0 Pulse 110 111 110 Resp 28 27 29 B/P (MAP) 151/90 (110) 146/90 (108) 153/89 (110) Pulse Ox 98 99 O2 Delivery Room Air Room Air Room Air Room Air 03/19/18 03/19/18 03/19/18 03/19/18 08:00 08:00 09:00 09:15 Pulse 108 112 110 Resp 30 32 28 B/P (MAP) 163/101 (121) 167/103 (124) 141/86 (104) O2 Delivery Room Air Room Air Room Air Room Air 03/19/18 03/19/18 03/19/18 03/19/18 09:36 09:36 09:38 10:00 Pulse 111 113 113 98 Resp 27 B/P (MAP) 146/90 141/96 163/101 151/88 (109) O2 Delivery Room Air 03/19/18 11:00 Pulse 100 B/P (MAP) 140/88 (105) O2 Delivery Room Air Intake and Output 03/18/18 03/18/18 03/19/18 15:01 23:01 07:01 Intake Total 0 ml 898 ml 1109 ml Output Total 0 ml 0 ml Balance 0 ml 898 ml 1109 ml Nutrition Consultation Dietary Evaluation: Recommendations by RD: PPN/TPN Comments: continue PPN at this time Expected Outcomes/Goals: diet advancement/ tolerance Malnutrition Findings: Food and Nutrition Intake (Mod: <75% est energy req 7days Weight Status: Appropriate MIRTHA BEATTY MD Mar 19, 2018 13:11
[2018-03-19] MEDS: HYDROmorphone 2 MG/ML VIAL IV PRN (15:40)
--- NOTE | 2018-03-19 15:56 | NUR ---
SS following up with discharge planning. SS spoke with pt's spouse via phone in regards to discharge planning and discussed LTAC at [facility], ; fax [phone], prior to [facility]. Pt's spouse agreeable and reported that he would discuss with pt in the morning. SS phoned and faxed referral to [facility]. SS will await acceptance decision and will proceed accordingly.
--- NOTE | 2018-03-19 18:18 | NUR ---
To dialysis 1600.Report called to RN for 578 and will transfer when dialysis complete. Personal belongings,hosp items/W/C to room. called per SS /agreed to screening for possible transfer.
[2018-03-19] MEDS: POLYETHYLENE GLYCOL 3350 17 GM PACKET. PO SCH (20:50)
[2018-03-20 03:00] VITALS: BP 148/96
[2018-03-20] MEDS: HYDROmorphone 2 MG/ML VIAL IV PRN (03:09)
[2018-03-20 04:50] LABS: CALCIUM 8.9 mg/dL (8.5-10.1); CREATININE 2.4 mg/dL (0.6-1.0); GFR 20.8; POTASSIUM 4.3 mmol/L (3.5-5.1)
[2018-03-20 04:54] LABS: BASO # 0.1 x10^3/uL (0.0-0.2); BASO % 1 % (0-3); EOS # 0.1 x10^3/uL (0.0-0.7); EOS % 0 % (0-3); HEMATOCRIT 27.7 % (36.0-47.0); HEMOGLOBIN 9.3 g/dL (12.0-15.5); LYMPH # 0.7 x10^3/uL (1.0-4.8); LYMPH % 4 % (24-48); MEAN CORPUSCULAR HEMOGLOBIN 29 pg (25-35); MEAN CORPUSCULAR HGB CONC 33 g/dL (31-37); MEAN CORPUSCULAR VOLUME 88 fL (79-100); MONO # 0.7 x10^3/uL (0.0-1.1); MONO % 4 % (0-9); NEUT # 16.5 x10^3uL (1.8-7.7); NEUT % 91 % (31-73); PLATELET COUNT 422 x10^3/uL (140-400); RED BLOOD COUNT 3.16 x10^6/uL (3.50-5.40); WHITE BLOOD COUNT 18.1 x10^3/uL (4.0-11.0)
[2018-03-20] MEDS: PIPERACILLIN/TAZOBACTAM 2.25 GM in IV NORMAL SALINE 50ML 50 ML IV SCH ×2 (06:08→14:04)
[2018-03-20 07:00] VITALS: BP 138/95
--- NOTE | 2018-03-20 08:21 | PDOC ---
PROGRESS NOTES Subjective Subjective S: still wanting HD, wants to go to a SNF or somewhere similar to cont to get stronger, not seemingly likely w/ her decline, would like to cont to wean dex, BP actually hi lately O: Physical exam: Gen: resting on commode, NAD, fatigued Psych: depressed mood but pleasant affect Labs: reviewed Rads: BLE u/s neg for DVT, limited study Assessment and Plan: She is a 57-year-old female with metastatic ovarian cancer , not a candidate for further anticancer therapy due to poor functional status, she stayed at [facility] in the past, and has end-stage renal disease on dialysis. Good candidate for, but not interested in hospice. On palliative dexamethasone, currently 12 mg daily, and on Aranesp for anemia w/ low iron sat. Anemia: Continue Aranesp, transfuse if <Hb of 7, even though ferritin elevated will add oral iron due to sat less than 20% End-stage renal disease: On dialysis Ovarian cancer: no current active oncology tx, follow-up with pall care prn, though refusing hospice so she can cont HD, will cont to wean dexamethasone slowly, to 4 mg daily as of Mar, this can continue to be weaned slowly over time as needed. Thank you kindly, and please do not hesitate to call with any further questions. Objective Objective Vital Signs Date Time Temp Pulse Resp B/P (MAP) Pulse Ox O2 Delivery O2 Flow Rate FiO2 03/20/18 04:07 17 93 Room Air 03/20/18 03:00 97.8 105 148/96 (113) 97.8 03/18/18 15:00 9.0 Intake and Output 03/20/18 07:01 Intake Total 230 ml Output Total 0 ml Balance 230 ml Intake Oral 230 ml Gastric Drainage Total 0 ml Drainage Total 0 ml # Bowel Movements 2 Assessment Assessment Problems Medical Problems: (1) Dialysis catheter clot or failure Status: Acute (2) Serum potassium elevated Status: Acute Comment Review of Relevant I have reviewed the following items arden (where applicable) has been applied. Labs Laboratory Tests Test 03/19/18 03:45 03/20/18 03:28 White Blood Count 20.4 x10^3/uL (4.0-11.0) 18.1 x10^3/uL (4.0-11.0) Red Blood Count 3.27 x10^6/uL (3.50-5.40) 3.16 x10^6/uL (3.50-5.40) Hemoglobin 9.4 g/dL (12.0-15.5) 9.3 g/dL (12.0-15.5) Hematocrit 28.7 % (36.0-47.0) 27.7 % (36.0-47.0) Mean Corpuscular Volume 88 fL (79-100) 88 fL (79-100) Mean Corpuscular Hemoglobin 29 pg (25-35) 29 pg (25-35) Mean Corpuscular Hemoglobin Concent 33 g/dL (31-37) 33 g/dL (31-37) Red Cell Distribution Width 18.3 % (11.5-14.5) 18.0 % (11.5-14.5) Platelet Count 414 x10^3/uL (140-400) 422 x10^3/uL (140-400) Neutrophils (%) (Auto) 92 % (31-73) 91 % (31-73) Lymphocytes (%) (Auto) 4 % (24-48) 4 % (24-48) Monocytes (%) (Auto) 4 % (0-9) 4 % (0-9) Eosinophils (%) (Auto) 0 % (0-3) 0 % (0-3) Basophils (%) (Auto) 0 % (0-3) 1 % (0-3) Neutrophils # (Auto) 18.7 x10^3uL (1.8-7.7) 16.5 x10^3uL (1.8-7.7) Lymphocytes # (Auto) 0.9 x10^3/uL (1.0-4.8) 0.7 x10^3/uL (1.0-4.8) Monocytes # (Auto) 0.7 x10^3/uL (0.0-1.1) 0.7 x10^3/uL (0.0-1.1) Eosinophils # (Auto) 0.0 x10^3/uL (0.0-0.7) 0.1 x10^3/uL (0.0-0.7) Basophils # (Auto) 0.1 x10^3/uL (0.0-0.2) 0.1 x10^3/uL (0.0-0.2) Sodium Level 133 mmol/L (136-145) Potassium Level 4.3 mmol/L (3.5-5.1) Chloride Level 96 mmol/L (98-107) Carbon Dioxide Level 25 mmol/L (21-32) Anion Gap 12 (6-14) Blood Urea Nitrogen 44 mg/dL (7-20) Creatinine 2.4 mg/dL (0.6-1.0) Estimated GFR (Cockcroft-Gault) 20.8 Glucose Level 98 mg/dL (70-99) Calcium Level 8.9 mg/dL (8.5-10.1) Laboratory Tests Test 03/20/18 03:28 White Blood Count 18.1 x10^3/uL (4.0-11.0) Red Blood Count 3.16 x10^6/uL (3.50-5.40) Hemoglobin 9.3 g/dL (12.0-15.5) Hematocrit 27.7 % (36.0-47.0) Mean Corpuscular Volume 88 fL (79-100) Mean Corpuscular Hemoglobin 29 pg (25-35) Mean Corpuscular Hemoglobin Concent 33 g/dL (31-37) Red Cell Distribution Width 18.0 % (11.5-14.5) Platelet Count 422 x10^3/uL (140-400) Neutrophils (%) (Auto) 91 % (31-73) Lymphocytes (%) (Auto) 4 % (24-48) Monocytes (%) (Auto) 4 % (0-9) Eosinophils (%) (Auto) 0 % (0-3) Basophils (%) (Auto) 1 % (0-3) Neutrophils # (Auto) 16.5 x10^3uL (1.8-7.7) Lymphocytes # (Auto) 0.7 x10^3/uL (1.0-4.8) Monocytes # (Auto) 0.7 x10^3/uL (0.0-1.1) Eosinophils # (Auto) 0.1 x10^3/uL (0.0-0.7) Basophils # (Auto) 0.1 x10^3/uL (0.0-0.2) Sodium Level 133 mmol/L (136-145) Potassium Level 4.3 mmol/L (3.5-5.1) Chloride Level 96 mmol/L (98-107) Carbon Dioxide Level 25 mmol/L (21-32) Anion Gap 12 (6-14) Blood Urea Nitrogen 44 mg/dL (7-20) Creatinine 2.4 mg/dL (0.6-1.0) Estimated GFR (Cockcroft-Gault) 20.8 Glucose Level 98 mg/dL (70-99) Calcium Level 8.9 mg/dL (8.5-10.1) Microbiology 03/14/18 Blood Culture - Final, Complete NO GROWTH AFTER 5 DAYS 03/08/18 Anaerobic/Aerobic Culture - Final, Complete 03/08/18 Anaerobic Culture Result 1 (TIMOTHY) - Final, Complete 03/08/18 Aerobic Culture - Final, Complete 03/08/18 Aerobic Culture Result 1 (TIMOTHY) - Final, Complete 03/08/18 Gram Stain - Final, Complete 03/08/18 Gram Stain Result 1 (TIMOTHY) - Final, Complete 03/08/18 Gram Stain Result 2 (TIMOTHY) - Final, Complete Medications Current Medications Ondansetron HCl (Zofran) 4 mg PRN Q8HRS PRN IV NAUSEA/VOMITING Last administered on 03/06/18at 05:34; Start 03/05/18 at 22:00; Stop 03/06/18 at 21:59 ; Status DC Fentanyl Citrate (Fentanyl 2ml Vial) 50 mcg PRN Q1HR PRN IV PAIN Last administered on 03/06/18at 05:35; Start 03/05/18 at 22:00; Stop 03/06/18 at 21:59 ; Status DC Calcium Gluconate (Calcium Gluconate) 1,000 mg 1X ONCE IVP Last administered on 03/05/18at 23:23; Start 03/05/18 at 22:15; Stop 03/05/18 at 22:16; Status DC Sodium Bicarbonate (Sodium Bicarb Adult 8.4% Syr) 50 meq 1X ONCE IV Last administered on 03/05/18at 23:23; Start 03/05/18 at 22:15; Stop 03/05/18 at 22 :16; Status DC Sodium Polystyrene Sulfonate (Kayexalate) 30 gm 1X ONCE PO Last administered on 03/05/18at 23:23; Start 03/05/18 at 22:15; Stop 03/05/18 at 22:16; Status DC Ondansetron HCl (Zofran) 4 mg 1X ONCE IV Last administered on 03/05/18at 22:55 ; Start 03/05/18 at 22:45; Stop 03/05/18 at 22:55; Status DC Prochlorperazine Edisylate (Compazine) 10 mg PRN Q6HRS PRN IM NAUSEA/VOMITING; Start 03/06/18 at 06:15; Stop 03/06/18 at 12:32; Status DC Oxycodone HCl (Roxicodone) 10 mg PRN Q4HRS PRN PO MODERATE PAIN Last administered on 03/11/18at 00:24; Start 03/06/18 at 06:15 Oxycodone HCl (Roxicodone) 20 mg PRN Q4HRS PRN PO SEVERE PAIN; Start 03/06/18 at 06:15 Lidocaine/ Epinephrine (LIDOCAINE 1%-EPI 1:100,000 Multi-Dose) 20 ml STK-MED ONCE .ROUTE ; Start 03/06/18 at 09:11; Stop 03/06/18 at 09:12; Status DC Cefazolin Sodium 50 ml @ As Directed STK-MED ONCE IV ; Start 03/06/18 at 09:34; Stop 03/06/18 at 09:35; Status DC Midazolam HCl (Versed) 2 mg STK-MED ONCE .ROUTE ; Start 03/06/18 at 09:34; Stop 03/06/18 at 09:35; Status DC Fentanyl Citrate (Fentanyl 2ml Vial) 100 mcg STK-MED ONCE .ROUTE ; Start at 09:34; Stop 03/06/18 at 09:35; Status DC Heparin Sodium (Porcine) (Heparin Sodium) 10,000 unit STK-MED ONCE .ROUTE ; Start 03/06/18 at 09:44; Stop 03/06/18 at 09:46; Status DC Midazolam HCl (Versed) 2 mg 1X ONCE IV Last administered on 03/06/18at 10:11; Start 03/06/18 at 10:30; Stop 03/06/18 at 10:35; Status DC Fentanyl Citrate (Fentanyl 2ml Vial) 100 mcg 1X ONCE IV Last administered on at 10:11; Start 03/06/18 at 10:30; Stop 03/06/18 at 10:35; Status DC Lidocaine/ Epinephrine (LIDOCAINE 1%-EPI 1:100,000 Multi-Dose) 20 ml 1X ONCE IJ Last administered on 03/06/18at 10:09; Start 03/06/18 at 10:30; Stop 03/06/18 at 10:35; Status DC Cefazolin Sodium 50 ml @ 100 mls/hr 1X ONCE IV Last administered on 03/06/18at 10:11; Start 03/06/18 at 10:30; Stop 03/06/18 at 10:59; Status DC Heparin Sodium (Porcine) (Heparin Sodium) 4,200 unit 1X ONCE INT CAT Last administered on 03/06/18 10:11; Start 03/06/18 at 10:30; Stop 03/06/18 at 10:35; Status DC Clonidine HCl (Catapres) 0.1 mg BID PO Last administered on 03/19/18 20:50; Start 03/06/18 at 12:00 Dexamethasone (Decadron) 16 mg DAILY PO Last administered on 03/07/18 13:12; Start 03/06/18 at 12:00; Stop 03/08/18 at 09:00; Status DC Fentanyl (Duragesic 50mcg/ Hr Patch) 1 patch Q3DAYS TD ; Start 03/06/18 at 21:00 ; Stop 03/06/18 at 21:05; Status DC Lorazepam (Ativan) 0.5 mg PRN Q12HRS PRN PO ANXIETY / AGITATION Last administered on 03/19/18 09:36; Start 03/06/18 at 11:30 Ondansetron HCl (Zofran Odt) 8 mg PRN Q8HRS PRN PO NAUSEA/VOMITING Last administered on 03/11/18 01:41; Start 03/06/18 at 11:30 Calcium Acetate (Phoslo) 667 mg TIDWMEALS PO Last administered on 03/09/18 12: 09; Start 03/06/18 at 12:00 Carvedilol (Coreg) 6.25 mg BIDWMEALS PO Last administered on 03/19/18 09:36; Start 03/06/18 at 12:00 Famotidine (Pepcid) 20 mg QHS PO Last administered on 1/1/19at 20:51; Start 03/06/18 at 21:00; Stop 03/07/18 at 13:15; Status DC Fluticasone Propionate (Flonase) 1 spray DAILY NS Last administered on at 12:16; Start 03/06/18 at 12:00 Guaifenesin/ Codeine Phosphate (Robitussin Ac) 10 ml PRN Q4HRS PRN PO COUGH; Start 03/06/18 at 11:45 Non-Formulary Medication (Melatonin ) 1 tab QHS PO ; Start 03/06/18 at 21:00; Status UNV Multivitamins (Thera M Plus) 1 tab DAILY PO Last administered on 03/09/18 08:20 ; Start 03/06/18 at 12:00 Polyethylene Glycol (miraLAX PACKET) 17 gm QHS PO Last administered on at 21:04; Start 03/06/18 at 21:00 Sennosides (Senna) 8.6 mg DAILY PO Last administered on 03/09/18 08:20; Start 03/06/18 at 12:00 Sertraline HCl (Zoloft) 150 mg DAILY PO Last administered on 03/19/18at 09:35; Start 03/06/18 at 12:00 Prochlorperazine Edisylate (Compazine) 10 mg PRN Q6HRS PRN IV NAUSEA/VOMITING Last administered on 03/15/18at 07:03; Start 03/06/18 at 12:45 Darbepoetin Taran (Aranesp) 60 mcg [id number] SQ Last administered on 03/13/18 21: 03; Start 03/06/18 at 21:00 Magnesium Sulfate 50 ml @ 25 mls/hr PRN DAILY PRN IV for Mag < 1.7 on am labs; Start 03/06/18 at 13:45 Sodium Chloride 1,000 ml @ 1,000 mls/hr Q1H PRN IV hypotension; Start 03/06/18 at 12:30; Stop 03/06/18 at 18:29; Status DC Sodium Chloride 1,000 ml @ 400 mls/hr Q2H30M PRN IV PATENCY; Start 03/06/18 at 12:30; Stop 03/06/18 at 20:00; Status DC Info (PHARMACY MONITORING -- do not chart) 1 each PRN DAILY PRN MC SEE COMMENTS ; Start 03/06/18 at 15:00; Status UNV Info (PHARMACY MONITORING -- do not chart) 1 each PRN DAILY PRN MC SEE COMMENTS ; Start 03/06/18 at 15:00; Stop 03/07/18 at 16:17; Status DC Fentanyl (Duragesic 50mcg/ Hr Patch) 1 patch Q72H TD Last administered on at 23:10; Start 03/06/18 at 21:30 Sodium Chloride 1,000 ml @ 1,000 mls/hr Q1H PRN IV hypotension; Start 03/07/18 at 07:51; Stop 03/07/18 at 13:50; Status DC Albumin Human 200 ml @ 200 mls/hr 1X PRN PRN IV Hypotension; Start 03/07/18 at 08:00; Stop 03/07/18 at 13:59; Status DC Sodium Chloride 1,000 ml @ 400 mls/hr Q2H30M PRN IV PATENCY; Start 03/07/18 at 07:51; Stop 03/07/18 at 19:50; Status DC Info (PHARMACY MONITORING -- do not chart) 1 each PRN DAILY PRN MC SEE COMMENTS ; Start 03/07/18 at 08:00; Stop 03/09/18 at 18:51; Status DC Info (PHARMACY MONITORING -- do not chart) 1 each PRN DAILY PRN MC SEE COMMENTS ; Start 03/07/18 at 08:00; Status UNV Dexamethasone (Decadron) 12 mg DAILY PO ; Start 03/07/18 at 09:30; Stop 03/07/18 at 09:33; Status DC Dexamethasone (Decadron) 12 mg DAILY PO Last administered on 03/09/18at 08:20; Start 03/09/18 at 09:00; Stop 03/13/18 at 09:17; Status DC Pantoprazole Sodium (Protonix) 40 mg DAILYAC PO ; Start 03/08/18 at 07:30; Stop 03/08/18 at 07:30; Status DC Pantoprazole Sodium (PROTONIX VIAL for IV PUSH) 40 mg DAILYAC IVP Last administered on 03/09/18at 08:19; Start 03/08/18 at 07:30; Stop 03/09/18 at 12:24; Status DC Ferrous Sulfate (Iron Oral Solution) 300 mg DAILY PO Last administered on at 08:20; Start 03/08/18 at 10:30 Albumin Human 100 ml @ 100 mls/hr Q6HRS IV Last administered on 03/09/18at 17:28 ; Start 03/08/18 at 12:00; Stop 03/09/18 at 18:59; Status DC Sodium Chloride 1,000 ml @ 1,000 mls/hr Q1H PRN IV hypotension; Start 03/08/18 at 15:00; Stop 03/08/18 at 21:21; Status DC Sodium Chloride (Normal Saline Flush) 10 ml 1X PRN PRN IV AP catheter pack; Start 03/08/18 at 15:00; Stop 03/09/18 at 14:59; Status DC Sodium Chloride (Normal Saline Flush) 10 ml 1X PRN PRN IV FEEDER CATCHER catheter pack; Start 03/08/18 at 15:00; Stop 03/09/18 at 14:59; Status DC Info (PHARMACY MONITORING -- do not chart) 1 each PRN DAILY PRN MC SEE COMMENTS ; Start 03/08/18 at 21:15; Status Cancel Info (PHARMACY MONITORING -- do not chart) 1 each PRN DAILY PRN MC SEE COMMENTS ; Start 03/08/18 at 21:15 Pantoprazole Sodium (Protonix) 40 mg DAILYAC PO Last administered on 03/10/18at 08:20; Start 03/09/18 at 16:30; Stop 03/12/18 at 10:38; Status DC Sodium Chloride 1,000 ml @ 1,000 mls/hr Q1H PRN IV hypotension; Start 03/10/18 at 08:30; Stop 03/10/18 at 14:29; Status DC Sodium Chloride 1,000 ml @ 400 mls/hr Q2H30M PRN IV PATENCY; Start 03/10/18 at 08:30; Stop 03/10/18 at 20:29; Status DC Info (PHARMACY MONITORING -- do not chart) 1 each PRN DAILY PRN MC SEE COMMENTS ; Start 03/10/18 at 10:15; Status UNV Info (PHARMACY MONITORING -- do not chart) 1 each PRN DAILY PRN MC SEE COMMENTS ; Start 03/10/18 at 10:15; Status UNV Alteplase, Recombinant (Cathflo) 2 mg 1X ONCE INT CAT Last administered on 03/10at 14:04; Start 03/10/18 at 11:45; Stop 03/10/18 at 11:46; Status DC Amino Acids/ Glycerin/ Electrolytes 1,000 ml @ 80 mls/hr [id number] IV Last administered on 03/19/18at 22:59; Start 03/10/18 at 20:00 Alteplase, Recombinant (Cathflo) 2 mg 1X ONCE INT CAT Last administered on 03/10at 21:05; Start 03/10/18 at 20:00; Stop 03/10/18 at 20:16; Status DC Metoprolol Tartrate (Lopressor Vial) 5 mg 1X ONCE IVP Last administered on 03/11at 12:01; Start 03/11/18 at 12:00; Stop 03/11/18 at 12:01; Status DC Hydromorphone HCl (Dilaudid) 1 mg PRN Q4HRS PRN IV PAIN Last administered on at 03:09; Start 03/11/18 at 11:45 Sodium Chloride 500 ml @ 500 mls/hr 1X ONCE IV Last administered on 03/11/18at 12:02; Start 03/11/18 at 11:45; Stop 03/11/18 at 12:45; Status DC Metoprolol Tartrate (Lopressor Vial) 5 mg Q6HRS IVP ; Start 03/11/18 at 18:00; Stop 03/11/18 at 18:00; Status DC Alteplase, Recombinant (Cathflo) 2 mg 1X ONCE INT CAT ; Start 03/11/18 at 18:00 ; Stop 03/11/18 at 18:01; Status DC Metoprolol Tartrate (Lopressor Vial) 5 mg Q6HRS PRN IVP TACHYCARDIA Last administered on 03/19/18at 09:38; Start 03/11/18 at 18:00 Heparin Sodium (Porcine) (Hep Lock Adult) 500 unit 1X ONCE IV Last administered on 03/11/18at 18:20; Start 03/11/18 at 18:00; Stop 03/11/18 at 18:01; Status DC Acetaminophen (Tylenol Supp) 650 mg PRN Q6HRS PRN KS MILD PAIN / TEMP Last administered on 03/12/18at 09:27; Start 03/12/18 at 08:45 Throat Lozenges (Chloraseptic) 1 spray PRN Q2HR PRN PO SORE THROAT Last administered on 03/12/18at 09:26; Start 03/12/18 at 08:45 Pantoprazole Sodium (PROTONIX VIAL for IV PUSH) 40 mg DAILYAC IVP Last administered on 03/18/18at 14:26; Start 03/13/18 at 07:30; Stop 03/19/18 at 09:19 ; Status DC Dexamethasone (Decadron) 8 mg DAILY PO Last administered on 03/19/18at 09:36; Start 03/13/18 at 09:30 Ceftriaxone Sodium (Rocephin) 1 gm Q24H IVP ; Start 03/13/18 at 10:30; Stop at 10:34; Status DC Piperacillin Sod/ Tazobactam Sod 3.375 gm/Sodium Chloride 50 ml @ 100 mls/hr Q6HRS IV ; Start 03/13/18 at 12:00; Stop 03/13/18 at 12:00; Status DC Sodium Chloride 1,000 ml @ 1,000 mls/hr Q1H PRN IV hypotension; Start 03/13/18 at 10:05; Stop 03/13/18 at 16:04; Status DC Albumin Human 200 ml @ 200 mls/hr 1X PRN PRN IV Hypotension; Start 03/13/18 at 10:15; Stop 03/13/18 at 16:14; Status DC Info (PHARMACY MONITORING -- do not chart) 1 each PRN DAILY PRN MC SEE COMMENTS ; Start 03/13/18 at 10:15; Status UNV Info (PHARMACY MONITORING -- do not chart) 1 each PRN DAILY PRN MC SEE COMMENTS ; Start 03/13/18 at 10:15; Status UNV Metronidazole 100 ml @ 100 mls/hr Q8HRS IV ; Start 03/13/18 at 10:45; Stop at 10:45; Status DC Piperacillin Sod/ Tazobactam Sod 2.25 gm/Sodium Chloride 50 ml @ 100 mls/hr Q8HRS IV Last administered on 03/20/18at 06:08; Start 03/13/18 at 14:00 Metronidazole 100 ml @ 100 mls/hr Q8HRS IV Last administered on 03/16/18at 06: 19; Start 03/13/18 at 11:00; Stop 03/16/18 at 07:19; Status DC Vancomycin HCl 1.25 gm/Sodium Chloride 250 ml @ 166.667 mls/hr 1X ONCE IV Last administered on 03/14/18at 09:02; Start 03/14/18 at 08:15; Stop 03/14/18 at 09: 44; Status DC Sodium Bicarbonate (Sodium Bicarb Adult 8.4% Syr) 100 meq 1X ONCE IV Last administered on 03/14/18at 11:00; Start 03/14/18 at 10:45; Stop 03/14/18 at 10:46; Status DC Heparin Sodium (Porcine) (Heparin Sodium) 5,000 unit BID SQ Last administered on 03/19/18at 20:57; Start 03/14/18 at 12:00 Lorazepam (Ativan) 0.5 mg PRN Q4HRS PRN IV ANXIETY / AGITATION Last administered on 03/18/18at 01:30; Start 03/14/18 at 17:00 Sodium Bicarbonate (Sodium Bicarb Adult 8.4% Syr) 50 meq 1X ONCE IV Last administered on 03/16/18at 10:15; Start 03/16/18 at 08:30; Stop 03/16/18 at 08:32 ; Status DC Sodium Chloride 1,000 ml @ 1,000 mls/hr Q1H PRN IV hypotension; Start 03/16/18 at 14:59; Stop 03/16/18 at 20:58; Status DC Albumin Human 200 ml @ 200 mls/hr 1X PRN PRN IV Hypotension; Start 03/16/18 at 15:00; Stop 03/16/18 at 20:59; Status DC Sodium Chloride 1,000 ml @ 400 mls/hr Q2H30M PRN IV PATENCY; Start 03/16/18 at 14:59; Stop 03/17/18 at 02:58; Status DC Info (PHARMACY MONITORING -- do not chart) 1 each PRN DAILY PRN MC SEE COMMENTS ; Start 03/16/18 at 15:00; Status UNV Info (PHARMACY MONITORING -- do not chart) 1 each PRN DAILY PRN MC SEE COMMENTS ; Start 03/16/18 at 15:00; Status Cancel Norepinephrine Bitartrate 250 ml @ 1.875 mls/ hr CONT PRN IV SEE I/O RECORD Last administered on 03/16/18at 15:58; Start 03/16/18 at 16:00 Pantoprazole Sodium (Protonix) 40 mg DAILYAC PO ; Start 03/19/18 at 10:00 Sodium Chloride 1,000 ml @ 1,000 mls/hr Q1H PRN IV hypotension; Start 03/19/18 at 11:00; Stop 03/19/18 at 19:00; Status DC Sodium Chloride 1,000 ml @ 400 mls/hr Q2H30M PRN IV PATENCY; Start 03/19/18 at 11:00; Stop 03/19/18 at 19:00; Status DC Info (PHARMACY MONITORING -- do not chart) 1 each PRN DAILY PRN MC SEE COMMENTS ; Start 03/19/18 at 11:15; Status UNV Info (PHARMACY MONITORING -- do not chart) 1 each PRN DAILY PRN MC SEE COMMENTS ; Start 03/19/18 at 11:15; Status UNV Active Scripts Active Reported Zoloft (Sertraline Hcl) 100 Mg Tablet 150 Mg PO DAILY Senna Lax (Sennosides) 8.6 Mg Tablet 8.6 Mg PO DAILY Proair Hfa (Albuterol Sulfate) 8.5 Gm Hfa.aer.ad 2 Puff INH PRN Q6HRS PRN Miralax (Polyethylene Glycol 3350) 17 Gm Powd.pack 1 Pkt PO HS Oxycodone Hcl 5 Mg Capsule 20 Mg PO PRN Q4HRS PRN Oxycodone Hcl 5 Mg Capsule 10 Mg PO PRN Q4HRS PRN Ondansetron Odt (Ondansetron) 4 Mg Tab.rapdis 8 Mg PO PRN Q8HRS PRN One-Daily Multi-Vitamin (Multivitamin) 1 Each Tablet 1 Each PO HS Melatonin 3 Mg Tablet 1 Tab PO QHS Ativan (Lorazepam) 0.5 Mg Tablet 0.5 Mg PO PRN Q12HRS PRN Guaifenesin-Codeine Syrup (Guaifenesin/Codeine Phosphate) 118 Ml Liquid 10 Ml PO PRN Q4HRS PRN Flonase Allergy Relief (Fluticasone Propionate) 9.9 Ml [place].susp 1 Sprays NS DAILY FENTANYL 50mcg/hr (Fentanyl) 1 Each Patch.td72 1 Patch TP Q3DAYS Famotidine 40 Mg Tablet 20 Mg PO HS Dexamethasone 4 Mg Tablet 4 Tab PO DAILY Clonidine Hcl 0.1 Mg Tablet 0.1 Mg PO BID Carvedilol 25 Mg Tablet 6.25 Mg PO BIDWMEALS Calcium Acetate 667 Mg Tablet 667 Mg PO TIDWMEALS Vitals/I & O Vital Sign - Last 24 Hours 03/19/18 03/19/18 03/19/18 03/19/18 09:00 09:15 09:36 09:36 Pulse 112 110 111 113 Resp 32 28 B/P (MAP) 167/103 (124) 141/86 (104) 146/90 141/96 O2 Delivery Room Air Room Air 03/19/18 03/19/18 03/19/18 03/19/18 09:38 10:00 11:00 12:00 Temp 98.8 98.8 Pulse 113 98 100 90 Resp 27 30 B/P (MAP) 163/101 151/88 (109) 140/88 (105) 140/86 (104) Pulse Ox 98 O2 Delivery Room Air Room Air Room Air 03/19/18 03/19/18 03/19/18 03/19/18 12:00 13:00 14:00 15:00 Pulse 94 94 86 Resp 26 42 26 B/P (MAP) 153/92 (112) 170/101 (124) 167/108 (127) Pulse Ox 90 96 98 O2 Delivery Room Air Room Air Room Air Room Air 03/19/18 03/19/18 03/19/18 03/19/18 15:40 16:00 16:00 20:00 Temp 98.0 98.0 Pulse 86 Resp 25 23 B/P (MAP) 139/89 (106) Pulse Ox 96 97 O2 Delivery Room Air Room Air Room Air Room Air 03/19/18 03/19/18 03/19/18 03/20/18 20:48 20:50 23:00 03:00 Temp 97.5 97.5 97.8 97.5 97.5 97.8 Pulse 95 95 105 105 Resp 19 B/P (MAP) 133/86 (102) 133/86 136/93 (107) 148/96 (113) Pulse Ox 94 93 93 O2 Delivery Room Air Room Air Room Air 03/20/18 03/20/18 03:09 04:07 Resp 19 17 Pulse Ox 93 93 O2 Delivery Room Air Room Air Intake and Output 03/19/18 03/19/18 03/20/18 15:01 23:01 07:01 Intake Total 30 ml 50 ml 150 ml Output Total 0 ml 0 ml Balance 30 ml 50 ml 150 ml Nutrition Consultation Dietary Evaluation: Recommendations by RD: PPN/TPN Comments: continue PPN at this time Expected Outcomes/Goals: diet advancement/ tolerance Malnutrition Findings: Food and Nutrition Intake (Mod: <75% est energy req 7days Weight Status: Appropriate ROSALIO DANIELS MD Mar 20, 2018 08:21
--- NOTE | 2018-03-20 08:46 | PDOC ---
PULMONARY PROGRESS NOTES Subjective clinically improving off BIPAP Vitals Vital Signs Date Time Temp Pulse Resp B/P (MAP) Pulse Ox O2 Delivery O2 Flow Rate FiO2 03/20/18 07:00 96.4 112 24 138/95 (109) 92 Room Air 96.4 General: Alert, No acute distress Lungs: Other (decrease bs) Cardiovascular: S1 Abdomen: Soft Neuro Exam: Alert Extremities: Other (1+edema) Skin: Warm Labs Laboratory Tests Test 03/19/18 03:45 03/20/18 03:28 White Blood Count 20.4 x10^3/uL (4.0-11.0) 18.1 x10^3/uL (4.0-11.0) Red Blood Count 3.27 x10^6/uL (3.50-5.40) 3.16 x10^6/uL (3.50-5.40) Hemoglobin 9.4 g/dL (12.0-15.5) 9.3 g/dL (12.0-15.5) Hematocrit 28.7 % (36.0-47.0) 27.7 % (36.0-47.0) Mean Corpuscular Volume 88 fL (79-100) 88 fL (79-100) Mean Corpuscular Hemoglobin 29 pg (25-35) 29 pg (25-35) Mean Corpuscular Hemoglobin Concent 33 g/dL (31-37) 33 g/dL (31-37) Red Cell Distribution Width 18.3 % (11.5-14.5) 18.0 % (11.5-14.5) Platelet Count 414 x10^3/uL (140-400) 422 x10^3/uL (140-400) Neutrophils (%) (Auto) 92 % (31-73) 91 % (31-73) Lymphocytes (%) (Auto) 4 % (24-48) 4 % (24-48) Monocytes (%) (Auto) 4 % (0-9) 4 % (0-9) Eosinophils (%) (Auto) 0 % (0-3) 0 % (0-3) Basophils (%) (Auto) 0 % (0-3) 1 % (0-3) Neutrophils # (Auto) 18.7 x10^3uL (1.8-7.7) 16.5 x10^3uL (1.8-7.7) Lymphocytes # (Auto) 0.9 x10^3/uL (1.0-4.8) 0.7 x10^3/uL (1.0-4.8) Monocytes # (Auto) 0.7 x10^3/uL (0.0-1.1) 0.7 x10^3/uL (0.0-1.1) Eosinophils # (Auto) 0.0 x10^3/uL (0.0-0.7) 0.1 x10^3/uL (0.0-0.7) Basophils # (Auto) 0.1 x10^3/uL (0.0-0.2) 0.1 x10^3/uL (0.0-0.2) Sodium Level 133 mmol/L (136-145) Potassium Level 4.3 mmol/L (3.5-5.1) Chloride Level 96 mmol/L (98-107) Carbon Dioxide Level 25 mmol/L (21-32) Anion Gap 12 (6-14) Blood Urea Nitrogen 44 mg/dL (7-20) Creatinine 2.4 mg/dL (0.6-1.0) Estimated GFR (Cockcroft-Gault) 20.8 Glucose Level 98 mg/dL (70-99) Calcium Level 8.9 mg/dL (8.5-10.1) Laboratory Tests Test 03/20/18 03:28 White Blood Count 18.1 x10^3/uL (4.0-11.0) Red Blood Count 3.16 x10^6/uL (3.50-5.40) Hemoglobin 9.3 g/dL (12.0-15.5) Hematocrit 27.7 % (36.0-47.0) Mean Corpuscular Volume 88 fL (79-100) Mean Corpuscular Hemoglobin 29 pg (25-35) Mean Corpuscular Hemoglobin Concent 33 g/dL (31-37) Red Cell Distribution Width 18.0 % (11.5-14.5) Platelet Count 422 x10^3/uL (140-400) Neutrophils (%) (Auto) 91 % (31-73) Lymphocytes (%) (Auto) 4 % (24-48) Monocytes (%) (Auto) 4 % (0-9) Eosinophils (%) (Auto) 0 % (0-3) Basophils (%) (Auto) 1 % (0-3) Neutrophils # (Auto) 16.5 x10^3uL (1.8-7.7) Lymphocytes # (Auto) 0.7 x10^3/uL (1.0-4.8) Monocytes # (Auto) 0.7 x10^3/uL (0.0-1.1) Eosinophils # (Auto) 0.1 x10^3/uL (0.0-0.7) Basophils # (Auto) 0.1 x10^3/uL (0.0-0.2) Sodium Level 133 mmol/L (136-145) Potassium Level 4.3 mmol/L (3.5-5.1) Chloride Level 96 mmol/L (98-107) Carbon Dioxide Level 25 mmol/L (21-32) Anion Gap 12 (6-14) Blood Urea Nitrogen 44 mg/dL (7-20) Creatinine 2.4 mg/dL (0.6-1.0) Estimated GFR (Cockcroft-Gault) 20.8 Glucose Level 98 mg/dL (70-99) Calcium Level 8.9 mg/dL (8.5-10.1) Medications Active Scripts Medications Dose Route/Sig Max Daily Dose Days Date Category Zoloft (Sertraline Hcl) 100 Mg Tablet 150 Mg PO DAILY 03/06/18 Reported Senna Lax (Sennosides) 8.6 Mg Tablet 8.6 Mg PO DAILY 03/06/18 Reported Proair Hfa (Albuterol Sulfate) 8.5 Gm Hfa.aer.ad 2 Puff INH PRN Q6HRS PRN 03/06/18 Reported Miralax (Polyethylene Glycol 3350) 17 Gm Powd.pack 1 Pkt PO HS 03/06/18 Reported Oxycodone Hcl 5 Mg Capsule 20 Mg PO PRN Q4HRS PRN 03/06/18 Reported Oxycodone Hcl 5 Mg Capsule 10 Mg PO PRN Q4HRS PRN 03/06/18 Reported Ondansetron Odt (Ondansetron) 4 Mg Tab.rapdis 8 Mg PO PRN Q8HRS PRN 03/06/18 Reported One-Daily Multi-Vitamin (Multivitamin) 1 Each Tablet 1 Each PO HS 03/06/18 Reported Melatonin 3 Mg Tablet 1 Tab PO QHS 03/06/18 Reported Ativan (Lorazepam) 0.5 Mg Tablet 0.5 Mg PO PRN Q12HRS PRN 03/06/18 Reported Guaifenesin-Codeine Syrup (Guaifenesin/Codeine Phosphate) 118 Ml Liquid 10 Ml PO PRN Q4HRS PRN 03/06/18 Reported Flonase Allergy Relief (Fluticasone Propionate) 9.9 Ml [place].susp 1 Sprays NS DAILY 03/06/18 Reported FENTANYL 50mcg/hr (Fentanyl) 1 Each Patch.td72 1 Patch TP Q3DAYS 03/06/18 Reported Famotidine 40 Mg Tablet 20 Mg PO HS 03/06/18 Reported Dexamethasone 4 Mg Tablet 4 Tab PO DAILY 03/06/18 Reported Clonidine Hcl 0.1 Mg Tablet 0.1 Mg PO BID 03/06/18 Reported Carvedilol 25 Mg Tablet 6.25 Mg PO BIDWMEALS 03/06/18 Reported Calcium Acetate 667 Mg Tablet 667 Mg PO TIDWMEALS 03/06/18 Reported Impression . 1. Progressive hypercapnic and hypoxic respiratory failure secondary to multifactorial etiologies. The patient had progressive metastatic ovarian cancer with congestive heart failure / bilateral effusions, suspected extreme weakness contributing to hypercapnia as well. off BIPAP now 2. End-stage renal disease, on hemodialysis. 3. Metastatic ovarian cancer. 4. History of subdural hematoma. 5. History of gastroesophageal reflux disease. 6. Non-ST elevation myocardial infarction. 7. Depression. 8. Hyperlipidemia. 9. Persistent leukocytosis 10. Met/ Resp acidosis improved. 11. CHRONIC LEFT PLEURA X CATHETER, NOT DRAINING MUCH Plan . 1. Clinically improved. Met/ Resp acidosis improved. 2. prn BiPAP. 3. HD per renal 4. Follow ABGs prn 5. Continue antibiotics per ID 6. Venous Dopplers are negative. 7. Supportive care and follow recommendations of Renal and Oncology. 8. DVT prophylaxis. 9. Stress ulcer prophylaxis. 10. Discussed with RN and 11. TRANSFER TO FLOOR/ REMAINS DNR/DNI MALKA SINGLETON MD Mar 20, 2018 08:46
[2018-03-20] MEDS: FLUTICASONE 50MCG/NASAL SPRAY 16GM BOTTLE. NS SCH (09:00)
[2018-03-20] MEDS: SENNOSIDES 8.6 MG TABLET PO SCH (09:00)
[2018-03-20] MEDS ORDERED: DEXAMETHASONE 4 MG TABLET PO SCH (09:00)
[2018-03-20] MEDS: FERROUS SULFATE ORAL 300 MG/5 ML SOLUTION. PO SCH (09:01)
[2018-03-20] MEDS: CALCIUM ACETATE 667 MG CAPSULE PO SCH ×2 (09:01→12:00)
[2018-03-20] MEDS: PANTOPRAZOLE 40 MG TABLET.DR. PO SCH (09:01)
[2018-03-20] MEDS: cloNIDine HCL 0.1 MG TABLET PO SCH (09:02)
[2018-03-20] MEDS: MULTIVITAMIN with MINERAL TABLET. PO SCH (09:02)
[2018-03-20] MEDS: SERTRALINE 50 MG TABLET. PO SCH (09:02)
[2018-03-20] MEDS: CARVEDILOL 6.25 MG TABLET. PO SCH (09:03)
[2018-03-20] MEDS: HEPARIN for SUB-Q USE 5,000 UNIT/ML VIAL. SQ SCH (09:19)
--- NOTE | 2018-03-20 10:10 | PDOC ---
SUBJECTIVE ROS Comfortable, No complaints , transferred out of ICU OBJECTIVE Vital Signs Vital Signs Date Time Temp Pulse Resp B/P (MAP) Pulse Ox O2 Delivery O2 Flow Rate FiO2 03/20/18 09:03 112 138/95 03/20/18 07:00 96.4 24 92 Room Air 96.4 I & 0 Intake and Output 03/20/18 07:01 Intake Total 230 ml Output Total 0 ml Balance 230 ml Intake Oral 230 ml Gastric Drainage Total 0 ml Drainage Total 0 ml # Bowel Movements 2 PHYSICAL EXAM Physical Exam GENERAL: NAD HEENT: Oral cavity dry. NECK: Supple. LUNGS: Diminished , nonlabored HEART: S1, S2. ABDOMEN: soft, EXTREMITIES: 1+ lower extremity edema. SKIN: warm, no rash. NEUROLOGIC: Awake, answers minimally DIAGNOSIS/ASSESSMENT Assessment & Plan ESRD - [facility] as OP Since Hospitalization have been on MWF schedule No Indication for HD today Acute Resp Failure- resolved Metastatic ovarian cancer- not a candidate for further anticancer therapy due to functional status as per Hem/Onc at [facility] and [facility] . Recommended Palliative.Hospice Peritonitis- Ascites s/p paracentesis - Bacteroides fragilis On Abx ,ID following Ileus/partial SBO Critically ill,Prognosis is poor Pt's wants to continue HD despite multiple discussions with by all providers involved in her care. He is the DPOA and healthcare surrogate COMMENT/RELEVANT DATA Meds Current Medications Medications (Trade) Dose Ordered Sig/Nazia Start Time Stop Time Status Last Admin Dose Admin Acetaminophen (Tylenol Supp) 650 mg PRN Q6HRS PRN 03/12/18 08:45 03/12/18 09:27 650 MG Albumin Human 200 ml @ 200 mls/hr 1X PRN PRN 03/16/18 15:00 03/16/18 20:59 DC Alteplase, Recombinant (Cathflo) 2 mg 1X ONCE 03/11/18 18:00 03/11/18 18:01 DC Amino Acids/ Glycerin/ Electrolytes 1,000 ml @ 80 mls/hr [id number] 03/10/18 20:00 03/19/18 22:59 80 MLS/HR Calcium Acetate (Phoslo) 667 mg TIDWMEALS 03/06/18 12:00 03/20/18 09:01 667 MG Calcium Gluconate (Calcium Gluconate) 1,000 mg 1X ONCE 03/05/18 22:15 03/05/18 22:16 DC 03/05/18 23:23 1,000 MG Carvedilol (Coreg) 6.25 mg BIDWMEALS 03/06/18 12:00 03/20/18 09:03 6.25 MG Cefazolin Sodium 50 ml @ 100 mls/hr 1X ONCE 03/06/18 10:30 03/06/18 10:59 DC 03/06/18 10:11 100 MLS/HR Ceftriaxone Sodium (Rocephin) 1 gm Q24H 03/13/18 10:30 03/13/18 10:34 DC Clonidine HCl (Catapres) 0.1 mg BID 03/06/18 12:00 03/20/18 09:02 0.1 MG Darbepoetin Taran (Aranesp) 60 mcg WEEKLYHS 03/06/18 21:00 03/13/18 21:03 60 MCG Dexamethasone (Decadron) 4 mg DAILY 03/20/18 09:00 03/20/18 09:02 4 MG Famotidine (Pepcid) 20 mg QHS 03/06/18 21:00 03/07/18 13:15 DC 03/06/18 20:51 20 MG Fentanyl (Duragesic 50mcg/ Hr Patch) 1 patch Q72H 03/06/18 21:30 03/18/18 23:10 1 PATCH Fentanyl Citrate (Fentanyl 2ml Vial) 100 mcg 1X ONCE 03/06/18 10:30 03/06/18 10:35 DC 03/06/18 10:11 100 MCG Ferrous Sulfate (Iron Oral Solution) 300 mg DAILY 03/08/18 10:30 03/20/18 09:01 300 MG Fluticasone Propionate (Flonase) 1 spray DAILY 03/06/18 12:00 03/06/18 12:16 1 SPRAY Guaifenesin/ Codeine Phosphate (Robitussin Ac) 10 ml PRN Q4HRS PRN 03/06/18 11:45 Heparin Sodium (Porcine) (Hep Lock Adult) 500 unit 1X ONCE 03/11/18 18:00 03/11/18 18:01 DC 03/11/18 18:20 500 UNIT Heparin Sodium (Porcine) (Heparin Sodium) 5,000 unit BID 03/14/18 12:00 03/20/18 09:19 5,000 UNIT Hydromorphone HCl (Dilaudid) 1 mg PRN Q4HRS PRN 03/11/18 11:45 03/20/18 03:09 1 MG Info (PHARMACY MONITORING -- do not chart) 1 each PRN DAILY PRN 03/19/18 11:15 UNV Lidocaine/ Epinephrine (LIDOCAINE 1%-EPI 1:100,000 Multi-Dose) 20 ml 1X ONCE 03/06/18 10:30 03/06/18 10:35 DC 03/06/18 10:09 9 ML Lorazepam (Ativan) 0.5 mg PRN Q4HRS PRN 03/14/18 17:00 03/18/18 01:30 0.5 MG Magnesium Sulfate 50 ml @ 25 mls/hr PRN DAILY PRN 03/06/18 13:45 Metoprolol Tartrate (Lopressor Vial) 5 mg Q6HRS PRN 03/11/18 18:00 03/19/18 09:38 5 MG Metronidazole 100 ml @ 100 mls/hr Q8HRS 03/13/18 11:00 03/16/18 07:19 DC 03/16/18 06:19 100 MLS/HR Midazolam HCl (Versed) 2 mg 1X ONCE 03/06/18 10:30 03/06/18 10:35 DC 03/06/18 10:11 2 MG Multivitamins (Thera M Plus) 1 tab DAILY 03/06/18 12:00 03/20/18 09:02 1 TAB Non-Formulary Medication (Melatonin ) 1 tab QHS 03/06/18 21:00 UNV Norepinephrine Bitartrate 250 ml @ 1.875 mls/ hr CONT PRN 03/16/18 16:00 03/16/18 15:58 3.75 MLS/HR Ondansetron HCl (Zofran Odt) 8 mg PRN Q8HRS PRN 03/06/18 11:30 03/11/18 01:41 8 MG Ondansetron HCl (Zofran) 4 mg 1X ONCE 03/05/18 22:45 03/05/18 22:55 DC 03/05/18 22:55 4 MG Oxycodone HCl (Roxicodone) 20 mg PRN Q4HRS PRN 03/06/18 06:15 Pantoprazole Sodium (PROTONIX VIAL for IV PUSH) 40 mg DAILYAC 03/13/18 07:30 03/19/18 09:19 DC 03/18/18 14:26 40 MG Pantoprazole Sodium (Protonix) 40 mg DAILYAC 03/19/18 10:00 03/20/18 09:01 40 MG Piperacillin Sod/ Tazobactam Sod 2.25 gm/Sodium Chloride 50 ml @ 100 mls/hr Q8HRS 03/13/18 14:00 03/20/18 06:08 100 MLS/HR Piperacillin Sod/ Tazobactam Sod 3.375 gm/Sodium Chloride 50 ml @ 100 mls/hr Q6HRS 03/13/18 12:00 03/13/18 12:00 DC Polyethylene Glycol (miraLAX PACKET) 17 gm QHS 03/06/18 21:00 03/10/18 21:04 17 GM Prochlorperazine Edisylate (Compazine) 10 mg PRN Q6HRS PRN 03/06/18 12:45 03/15/18 07:03 10 MG Sennosides (Senna) 8.6 mg DAILY 03/06/18 12:00 03/09/18 08:20 8.6 MG Sertraline HCl (Zoloft) 150 mg DAILY 03/06/18 12:00 03/20/18 09:02 150 MG Sodium Polystyrene Sulfonate (Kayexalate) 30 gm 1X ONCE 03/05/18 22:15 03/05/18 22:16 DC 03/05/18 23:23 30 GM Sodium Bicarbonate (Sodium Bicarb Adult 8.4% Syr) 50 meq 1X ONCE 03/16/18 08:30 03/16/18 08:32 DC 03/16/18 10:15 50 MEQ Sodium Chloride 1,000 ml @ 400 mls/hr Q2H30M PRN 03/19/18 11:00 03/19/18 19:00 DC Sodium Chloride (Normal Saline Flush) 10 ml 1X PRN PRN 03/08/18 15:00 03/09/18 14:59 DC Throat Lozenges (Chloraseptic) 1 spray PRN Q2HR PRN 03/12/18 08:45 03/12/18 09:26 1 SPRAY Vancomycin HCl 1.25 gm/Sodium Chloride 250 ml @ 166.667 mls/hr 1X ONCE 03/14/18 08:15 03/14/18 09:44 DC 03/14/18 09:02 166.667 MLS/HR Lab Laboratory Tests Test 03/20/18 03:28 White Blood Count 18.1 x10^3/uL (4.0-11.0) Red Blood Count 3.16 x10^6/uL (3.50-5.40) Hemoglobin 9.3 g/dL (12.0-15.5) Hematocrit 27.7 % (36.0-47.0) Mean Corpuscular Volume 88 fL (79-100) Mean Corpuscular Hemoglobin 29 pg (25-35) Mean Corpuscular Hemoglobin Concent 33 g/dL (31-37) Red Cell Distribution Width 18.0 % (11.5-14.5) Platelet Count 422 x10^3/uL (140-400) Neutrophils (%) (Auto) 91 % (31-73) Lymphocytes (%) (Auto) 4 % (24-48) Monocytes (%) (Auto) 4 % (0-9) Eosinophils (%) (Auto) 0 % (0-3) Basophils (%) (Auto) 1 % (0-3) Neutrophils # (Auto) 16.5 x10^3uL (1.8-7.7) Lymphocytes # (Auto) 0.7 x10^3/uL (1.0-4.8) Monocytes # (Auto) 0.7 x10^3/uL (0.0-1.1) Eosinophils # (Auto) 0.1 x10^3/uL (0.0-0.7) Basophils # (Auto) 0.1 x10^3/uL (0.0-0.2) Sodium Level 133 mmol/L (136-145) Potassium Level 4.3 mmol/L (3.5-5.1) Chloride Level 96 mmol/L (98-107) Carbon Dioxide Level 25 mmol/L (21-32) Anion Gap 12 (6-14) Blood Urea Nitrogen 44 mg/dL (7-20) Creatinine 2.4 mg/dL (0.6-1.0) Estimated GFR (Cockcroft-Gault) 20.8 Glucose Level 98 mg/dL (70-99) Calcium Level 8.9 mg/dL (8.5-10.1) Results All relevant outside records, renal labs, imaging studies, telemetry/EKG's were reviewed. GUILLERMO GRIGGS MD Mar 20, 2018 10:10
[2018-03-20] MEDS: AMINO AC 3%/ELECTROLYTE/GLYCER 1,000 ML IV SCH (10:35)
[2018-03-20 11:00] VITALS: BP 140/92
--- NOTE | 2018-03-20 11:27 | DISCH ---
DISCHARGE DISCHARGE INFORMATION: FINAL DIAGNOSIS Problems Medical Problems: (1) Dialysis catheter clot or failure Status: Acute (2) Serum potassium elevated Status: Acute CONDITION ON DISCHARGE: Stable CODE STATUS: Code Status: Full LONGTERM: SNF STAY <30 DAYS: No HOSPICE: HOSPICE: No HOSPICE EVAL & TREAT: No LTAC: ADMIT TO LTAC: Yes POST DISCHARGE ORDERS: ACTIVITY ORDERS: Resume previous activity DIET AFTER DISCHARGE: Renal TREATMENT/EQUIPMENT ORDERS: Physical Therapy For: Evalulation/Treatment Occupational Therapy For: Evaluation/Treatment DISCHARGE MEDICATIONS: Home Meds Reported Medications Sertraline Hcl (ZOLOFT) 100 Mg Tablet, 150 MG PO DAILY for ANTI-DEPRESSANT, TAB 0 Refills 03/06/18 Sennosides (SENNA LAX) 8.6 Mg Tablet, 8.6 MG PO DAILY for constipation, TAB 03/06/18 Albuterol Sulfate (Proair Hfa) 8.5 Gm Hfa.aer.ad, 2 PUFF INH PRN Q6HRS PRN for SHORTNESS OF BREATH, INHALER 03/06/18 Polyethylene Glycol 3350 (MIRALAX) 17 Gm Powd.pack, 1 PKT PO HS for constipation , PKT 03/06/18 Oxycodone Hcl (OXYCODONE HCL) 5 Mg Capsule, 20 MG PO PRN Q4HRS PRN for PAIN, TAB 0 Refills 03/06/18 Oxycodone Hcl (OXYCODONE HCL) 5 Mg Capsule, 10 MG PO PRN Q4HRS PRN for PAIN, TAB 0 Refills 03/06/18 Ondansetron (ONDANSETRON ODT) 4 Mg Tab.rapdis, 8 MG PO PRN Q8HRS PRN for NAUSEA/ VOMITING, TAB 03/06/18 Multivitamin (One-Daily Multi-Vitamin) 1 Each Tablet, 1 EACH PO HS for supplement, TAB 03/06/18 Melatonin (MELATONIN) 3 Mg Tablet, 1 TAB PO QHS for insomnia, #30 TAB 03/06/18 Lorazepam (ATIVAN) 0.5 Mg Tablet, 0.5 MG PO PRN Q12HRS PRN for ANXIETY / AGITATION, TAB 03/06/18 Guaifenesin/Codeine Phosphate (GUAIFENESIN-CODEINE SYRUP) 118 Ml Liquid, 10 ML PO PRN Q4HRS PRN for COUGH, LIQUID 03/06/18 Fluticasone Propionate (Flonase Allergy Relief) 9.9 Ml [place].susp, 1 SPRAYS NS DAILY for allergies, BOTTLE 03/06/18 Fentanyl (FENTANYL 50mcg/hr) 1 Each Patch.td72, 1 PATCH TP Q3DAYS for pain, #10 PATCH 03/06/18 Famotidine (FAMOTIDINE) 40 Mg Tablet, 20 MG PO HS for GERD, TAB 03/06/18 Dexamethasone (DEXAMETHASONE) 4 Mg Tablet, 4 TAB PO DAILY for inflammation, #8 TAB 03/06/18 Clonidine Hcl (CLONIDINE HCL) 0.1 Mg Tablet, 0.1 MG PO BID for HTN, TAB 03/06/18 Carvedilol (CARVEDILOL) 25 Mg Tablet, 6.25 MG PO BIDWMEALS for CARDIAC, TAB 03/06/18 Calcium Acetate (CALCIUM ACETATE) 667 Mg Tablet, 667 MG PO TIDWMEALS for DIALYSIS PATIENTS, CAP 03/06/18 ROGERIO MONSALVE III DO Mar 20, 2018 11:26
--- NOTE | 2018-03-20 11:38 | PDOC ---
PROGRESS NOTES Chief Complaint Chief Complaint CC: Serum K increased Acute hypoxemic respiratory failure History of Present Illness History of Present Illness Patient seen and examined. Is now okay with hospice care now that she understands she can continue her dialysis. No new acute complaints. Vitals Vitals Vital Signs Date Time Temp Pulse Resp B/P (MAP) Pulse Ox O2 Delivery O2 Flow Rate FiO2 03/20/18 09:03 112 138/95 03/20/18 08:00 Room Air 03/20/18 07:00 96.4 24 92 96.4 Physical Exam Physical Exam GENERAL: Propped up in bed, weak appearing, quiet and withdrawn HEENT: Pupils equal and reactive. Oral cavity dry. NGT NECK: Supple. LUNGS: Diminished aeration, nonlabored HEART: S1, S2. ABDOMEN: Distended, hypoactive BM, soft, no grimace to light palpation EXTREMITIES: Without clubbing, cyanosis. 1+ lower extremity edema. SKIN: Warm to touch without any obvious rash. NEUROLOGIC: Awake, nonresponsive to questions Port & HDC clean General: Alert, Oriented X3, Cooperative, No acute distress, moderate distress Heart: Regular rate, Normal S1, Normal S2, No murmurs, Gallops, Other (TACHY RATE 116) Lungs: Other (decrease bs) Abdomen: Normal bowel sounds, Soft, No tenderness, No hepatosplenomegaly, No masses Extremities: No clubbing, No cyanosis, Normal pulses, No tenderness/swelling, Other (3+ edema) Skin: No rashes Labs LABS Laboratory Tests Test 03/20/18 03:28 White Blood Count 18.1 x10^3/uL (4.0-11.0) Red Blood Count 3.16 x10^6/uL (3.50-5.40) Hemoglobin 9.3 g/dL (12.0-15.5) Hematocrit 27.7 % (36.0-47.0) Mean Corpuscular Volume 88 fL (79-100) Mean Corpuscular Hemoglobin 29 pg (25-35) Mean Corpuscular Hemoglobin Concent 33 g/dL (31-37) Red Cell Distribution Width 18.0 % (11.5-14.5) Platelet Count 422 x10^3/uL (140-400) Neutrophils (%) (Auto) 91 % (31-73) Lymphocytes (%) (Auto) 4 % (24-48) Monocytes (%) (Auto) 4 % (0-9) Eosinophils (%) (Auto) 0 % (0-3) Basophils (%) (Auto) 1 % (0-3) Neutrophils # (Auto) 16.5 x10^3uL (1.8-7.7) Lymphocytes # (Auto) 0.7 x10^3/uL (1.0-4.8) Monocytes # (Auto) 0.7 x10^3/uL (0.0-1.1) Eosinophils # (Auto) 0.1 x10^3/uL (0.0-0.7) Basophils # (Auto) 0.1 x10^3/uL (0.0-0.2) Sodium Level 133 mmol/L (136-145) Potassium Level 4.3 mmol/L (3.5-5.1) Chloride Level 96 mmol/L (98-107) Carbon Dioxide Level 25 mmol/L (21-32) Anion Gap 12 (6-14) Blood Urea Nitrogen 44 mg/dL (7-20) Creatinine 2.4 mg/dL (0.6-1.0) Estimated GFR (Cockcroft-Gault) 20.8 Glucose Level 98 mg/dL (70-99) Calcium Level 8.9 mg/dL (8.5-10.1) Review of Systems Review of Systems Heart: denies chest pain Lungs: denies soa Integument: denies rashes Assessment and Plan Assessmemt and Plan Assessment: Acute hypoxemic respiratory failure Ovarian Cancer, METASTATIC End Stage Renal Disease, HD dependent Leukocytosis, with bacteremia, peritonitis, and on decadron Plan: fu with onco, renal, pulm, id still on iv abx on clear liquid diet still on PPN still on decadron as per onco. Plan on moving to LTAC today PT/OT Appreciate subspecialty input Comment Review of Relevant I have reviewed the following items arden (where applicable) has been applied. Labs Laboratory Tests Test 03/19/18 03:45 03/20/18 03:28 White Blood Count 20.4 x10^3/uL (4.0-11.0) 18.1 x10^3/uL (4.0-11.0) Red Blood Count 3.27 x10^6/uL (3.50-5.40) 3.16 x10^6/uL (3.50-5.40) Hemoglobin 9.4 g/dL (12.0-15.5) 9.3 g/dL (12.0-15.5) Hematocrit 28.7 % (36.0-47.0) 27.7 % (36.0-47.0) Mean Corpuscular Volume 88 fL (79-100) 88 fL (79-100) Mean Corpuscular Hemoglobin 29 pg (25-35) 29 pg (25-35) Mean Corpuscular Hemoglobin Concent 33 g/dL (31-37) 33 g/dL (31-37) Red Cell Distribution Width 18.3 % (11.5-14.5) 18.0 % (11.5-14.5) Platelet Count 414 x10^3/uL (140-400) 422 x10^3/uL (140-400) Neutrophils (%) (Auto) 92 % (31-73) 91 % (31-73) Lymphocytes (%) (Auto) 4 % (24-48) 4 % (24-48) Monocytes (%) (Auto) 4 % (0-9) 4 % (0-9) Eosinophils (%) (Auto) 0 % (0-3) 0 % (0-3) Basophils (%) (Auto) 0 % (0-3) 1 % (0-3) Neutrophils # (Auto) 18.7 x10^3uL (1.8-7.7) 16.5 x10^3uL (1.8-7.7) Lymphocytes # (Auto) 0.9 x10^3/uL (1.0-4.8) 0.7 x10^3/uL (1.0-4.8) Monocytes # (Auto) 0.7 x10^3/uL (0.0-1.1) 0.7 x10^3/uL (0.0-1.1) Eosinophils # (Auto) 0.0 x10^3/uL (0.0-0.7) 0.1 x10^3/uL (0.0-0.7) Basophils # (Auto) 0.1 x10^3/uL (0.0-0.2) 0.1 x10^3/uL (0.0-0.2) Sodium Level 133 mmol/L (136-145) Potassium Level 4.3 mmol/L (3.5-5.1) Chloride Level 96 mmol/L (98-107) Carbon Dioxide Level 25 mmol/L (21-32) Anion Gap 12 (6-14) Blood Urea Nitrogen 44 mg/dL (7-20) Creatinine 2.4 mg/dL (0.6-1.0) Estimated GFR (Cockcroft-Gault) 20.8 Glucose Level 98 mg/dL (70-99) Calcium Level 8.9 mg/dL (8.5-10.1) Laboratory Tests Test 03/20/18 03:28 White Blood Count 18.1 x10^3/uL (4.0-11.0) Red Blood Count 3.16 x10^6/uL (3.50-5.40) Hemoglobin 9.3 g/dL (12.0-15.5) Hematocrit 27.7 % (36.0-47.0) Mean Corpuscular Volume 88 fL (79-100) Mean Corpuscular Hemoglobin 29 pg (25-35) Mean Corpuscular Hemoglobin Concent 33 g/dL (31-37) Red Cell Distribution Width 18.0 % (11.5-14.5) Platelet Count 422 x10^3/uL (140-400) Neutrophils (%) (Auto) 91 % (31-73) Lymphocytes (%) (Auto) 4 % (24-48) Monocytes (%) (Auto) 4 % (0-9) Eosinophils (%) (Auto) 0 % (0-3) Basophils (%) (Auto) 1 % (0-3) Neutrophils # (Auto) 16.5 x10^3uL (1.8-7.7) Lymphocytes # (Auto) 0.7 x10^3/uL (1.0-4.8) Monocytes # (Auto) 0.7 x10^3/uL (0.0-1.1) Eosinophils # (Auto) 0.1 x10^3/uL (0.0-0.7) Basophils # (Auto) 0.1 x10^3/uL (0.0-0.2) Sodium Level 133 mmol/L (136-145) Potassium Level 4.3 mmol/L (3.5-5.1) Chloride Level 96 mmol/L (98-107) Carbon Dioxide Level 25 mmol/L (21-32) Anion Gap 12 (6-14) Blood Urea Nitrogen 44 mg/dL (7-20) Creatinine 2.4 mg/dL (0.6-1.0) Estimated GFR (Cockcroft-Gault) 20.8 Glucose Level 98 mg/dL (70-99) Calcium Level 8.9 mg/dL (8.5-10.1) Microbiology 03/14/18 Blood Culture - Final, Complete NO GROWTH AFTER 5 DAYS 03/08/18 Anaerobic/Aerobic Culture - Final, Complete 03/08/18 Anaerobic Culture Result 1 (TIMOTHY) - Final, Complete 03/08/18 Aerobic Culture - Final, Complete 03/08/18 Aerobic Culture Result 1 (TIMOTHY) - Final, Complete 03/08/18 Gram Stain - Final, Complete 03/08/18 Gram Stain Result 1 (TIMOTHY) - Final, Complete 03/08/18 Gram Stain Result 2 (TIMOTHY) - Final, Complete Medications Current Medications Ondansetron HCl (Zofran) 4 mg PRN Q8HRS PRN IV NAUSEA/VOMITING Last administered on 03/06/18at 05:34; Start 03/05/18 at 22:00; Stop 03/06/18 at 21:59 ; Status DC Fentanyl Citrate (Fentanyl 2ml Vial) 50 mcg PRN Q1HR PRN IV PAIN Last administered on 03/06/18at 05:35; Start 03/05/18 at 22:00; Stop 03/06/18 at 21:59 ; Status DC Calcium Gluconate (Calcium Gluconate) 1,000 mg 1X ONCE IVP Last administered on 03/05/18at 23:23; Start 03/05/18 at 22:15; Stop 03/05/18 at 22:16; Status DC Sodium Bicarbonate (Sodium Bicarb Adult 8.4% Syr) 50 meq 1X ONCE IV Last administered on 03/05/18at 23:23; Start 03/05/18 at 22:15; Stop 03/05/18 at 22 :16; Status DC Sodium Polystyrene Sulfonate (Kayexalate) 30 gm 1X ONCE PO Last administered on 03/05/18at 23:23; Start 03/05/18 at 22:15; Stop 03/05/18 at 22:16; Status DC Ondansetron HCl (Zofran) 4 mg 1X ONCE IV Last administered on 03/05/18at 22:55 ; Start 03/05/18 at 22:45; Stop 03/05/18 at 22:55; Status DC Prochlorperazine Edisylate (Compazine) 10 mg PRN Q6HRS PRN IM NAUSEA/VOMITING; Start 03/06/18 at 06:15; Stop 03/06/18 at 12:32; Status DC Oxycodone HCl (Roxicodone) 10 mg PRN Q4HRS PRN PO MODERATE PAIN Last administered on 03/11/18at 00:24; Start 03/06/18 at 06:15 Oxycodone HCl (Roxicodone) 20 mg PRN Q4HRS PRN PO SEVERE PAIN; Start 03/06/18 at 06:15 Lidocaine/ Epinephrine (LIDOCAINE 1%-EPI 1:100,000 Multi-Dose) 20 ml STK-MED ONCE .ROUTE ; Start 03/06/18 at 09:11; Stop 03/06/18 at 09:12; Status DC Cefazolin Sodium 50 ml @ As Directed STK-MED ONCE IV ; Start 03/06/18 at 09:34; Stop 03/06/18 at 09:35; Status DC Midazolam HCl (Versed) 2 mg STK-MED ONCE .ROUTE ; Start 03/06/18 at 09:34; Stop 03/06/18 at 09:35; Status DC Fentanyl Citrate (Fentanyl 2ml Vial) 100 mcg STK-MED ONCE .ROUTE ; Start at 09:34; Stop 03/06/18 at 09:35; Status DC Heparin Sodium (Porcine) (Heparin Sodium) 10,000 unit STK-MED ONCE .ROUTE ; Start 03/06/18 at 09:44; Stop 03/06/18 at 09:46; Status DC Midazolam HCl (Versed) 2 mg 1X ONCE IV Last administered on 03/06/18at 10:11; Start 03/06/18 at 10:30; Stop 03/06/18 at 10:35; Status DC Fentanyl Citrate (Fentanyl 2ml Vial) 100 mcg 1X ONCE IV Last administered on at 10:11; Start 03/06/18 at 10:30; Stop 03/06/18 at 10:35; Status DC Lidocaine/ Epinephrine (LIDOCAINE 1%-EPI 1:100,000 Multi-Dose) 20 ml 1X ONCE IJ Last administered on 03/06/18 10:09; Start 03/06/18 at 10:30; Stop 03/06/18 at 10:35; Status DC Cefazolin Sodium 50 ml @ 100 mls/hr 1X ONCE IV Last administered on 03/06/18at 10:11; Start 03/06/18 at 10:30; Stop 03/06/18 at 10:59; Status DC Heparin Sodium (Porcine) (Heparin Sodium) 4,200 unit 1X ONCE INT CAT Last administered on 03/06/18 10:11; Start 03/06/18 at 10:30; Stop 03/06/18 at 10:35; Status DC Clonidine HCl (Catapres) 0.1 mg BID PO Last administered on 03/20/18 09:02; Start 03/06/18 at 12:00 Dexamethasone (Decadron) 16 mg DAILY PO Last administered on 03/07/18 13:12; Start 03/06/18 at 12:00; Stop 03/08/18 at 09:00; Status DC Fentanyl (Duragesic 50mcg/ Hr Patch) 1 patch Q3DAYS TD ; Start 03/06/18 at 21:00 ; Stop 03/06/18 at 21:05; Status DC Lorazepam (Ativan) 0.5 mg PRN Q12HRS PRN PO ANXIETY / AGITATION Last administered on 03/19/18 09:36; Start 03/06/18 at 11:30 Ondansetron HCl (Zofran Odt) 8 mg PRN Q8HRS PRN PO NAUSEA/VOMITING Last administered on 03/11/18 01:41; Start 03/06/18 at 11:30 Calcium Acetate (Phoslo) 667 mg TIDWMEALS PO Last administered on 03/20/18 09: 01; Start 03/06/18 at 12:00 Carvedilol (Coreg) 6.25 mg BIDWMEALS PO Last administered on 03/20/18 09:03; Start 03/06/18 at 12:00 Famotidine (Pepcid) 20 mg QHS PO Last administered on 03/06/18at 20:51; Start 03/06/18 at 21:00; Stop 03/07/18 at 13:15; Status DC Fluticasone Propionate (Flonase) 1 spray DAILY NS Last administered on at 12:16; Start 03/06/18 at 12:00 Guaifenesin/ Codeine Phosphate (Robitussin Ac) 10 ml PRN Q4HRS PRN PO COUGH; Start 03/06/18 at 11:45 Non-Formulary Medication (Melatonin ) 1 tab QHS PO ; Start 03/06/18 at 21:00; Status UNV Multivitamins (Thera M Plus) 1 tab DAILY PO Last administered on 03/20/18at 09: 02; Start 03/06/18 at 12:00 Polyethylene Glycol (miraLAX PACKET) 17 gm QHS PO Last administered on at 21:04; Start 03/06/18 at 21:00 Sennosides (Senna) 8.6 mg DAILY PO Last administered on 03/09/18at 08:20; Start 03/06/18 at 12:00 Sertraline HCl (Zoloft) 150 mg DAILY PO Last administered on 03/20/18 09:02; Start 03/06/18 at 12:00 Prochlorperazine Edisylate (Compazine) 10 mg PRN Q6HRS PRN IV NAUSEA/VOMITING Last administered on 03/15/18at 07:03; Start 03/06/18 at 12:45 Darbepoetin Taran (Aranesp) 60 mcg WEEKLYHS SQ Last administered on 03/13/18 21: 03; Start 03/06/18 at 21:00 Magnesium Sulfate 50 ml @ 25 mls/hr PRN DAILY PRN IV for Mag < 1.7 on am labs; Start 03/06/18 at 13:45 Sodium Chloride 1,000 ml @ 1,000 mls/hr Q1H PRN IV hypotension; Start 03/06/18 at 12:30; Stop 03/06/18 at 18:29; Status DC Sodium Chloride 1,000 ml @ 400 mls/hr Q2H30M PRN IV PATENCY; Start 03/06/18 at 12:30; Stop 03/06/18 at 20:00; Status DC Info (PHARMACY MONITORING -- do not chart) 1 each PRN DAILY PRN MC SEE COMMENTS ; Start 03/06/18 at 15:00; Status UNV Info (PHARMACY MONITORING -- do not chart) 1 each PRN DAILY PRN MC SEE COMMENTS ; Start 03/06/18 at 15:00; Stop 03/07/18 at 16:17; Status DC Fentanyl (Duragesic 50mcg/ Hr Patch) 1 patch Q72H TD Last administered on at 23:10; Start 03/06/18 at 21:30 Sodium Chloride 1,000 ml @ 1,000 mls/hr Q1H PRN IV hypotension; Start 03/07/18 at 07:51; Stop 03/07/18 at 13:50; Status DC Albumin Human 200 ml @ 200 mls/hr 1X PRN PRN IV Hypotension; Start 03/07/18 at 08:00; Stop 03/07/18 at 13:59; Status DC Sodium Chloride 1,000 ml @ 400 mls/hr Q2H30M PRN IV PATENCY; Start 03/07/18 at 07:51; Stop 03/07/18 at 19:50; Status DC Info (PHARMACY MONITORING -- do not chart) 1 each PRN DAILY PRN MC SEE COMMENTS ; Start 03/07/18 at 08:00; Stop 03/09/18 at 18:51; Status DC Info (PHARMACY MONITORING -- do not chart) 1 each PRN DAILY PRN MC SEE COMMENTS ; Start 03/07/18 at 08:00; Status UNV Dexamethasone (Decadron) 12 mg DAILY PO ; Start 03/07/18 at 09:30; Stop 03/07/18 at 09:33; Status DC Dexamethasone (Decadron) 12 mg DAILY PO Last administered on 03/09/18at 08:20; Start 03/09/18 at 09:00; Stop 03/13/18 at 09:17; Status DC Pantoprazole Sodium (Protonix) 40 mg DAILYAC PO ; Start 03/08/18 at 07:30; Stop 03/08/18 at 07:30; Status DC Pantoprazole Sodium (PROTONIX VIAL for IV PUSH) 40 mg DAILYAC IVP Last administered on 03/09/18at 08:19; Start 03/08/18 at 07:30; Stop 03/09/18 at 12:24; Status DC Ferrous Sulfate (Iron Oral Solution) 300 mg DAILY PO Last administered on at 09:01; Start 03/08/18 at 10:30 Albumin Human 100 ml @ 100 mls/hr Q6HRS IV Last administered on 03/09/18at 17:28 ; Start 03/08/18 at 12:00; Stop 03/09/18 at 18:59; Status DC Sodium Chloride 1,000 ml @ 1,000 mls/hr Q1H PRN IV hypotension; Start 03/08/18 at 15:00; Stop 03/08/18 at 21:21; Status DC Sodium Chloride (Normal Saline Flush) 10 ml 1X PRN PRN IV AP catheter pack; Start 03/08/18 at 15:00; Stop 03/09/18 at 14:59; Status DC Sodium Chloride (Normal Saline Flush) 10 ml 1X PRN PRN IV CAR SEALER catheter pack; Start 03/08/18 at 15:00; Stop 03/09/18 at 14:59; Status DC Info (PHARMACY MONITORING -- do not chart) 1 each PRN DAILY PRN MC SEE COMMENTS ; Start 03/08/18 at 21:15; Status Cancel Info (PHARMACY MONITORING -- do not chart) 1 each PRN DAILY PRN MC SEE COMMENTS ; Start 03/08/18 at 21:15 Pantoprazole Sodium (Protonix) 40 mg DAILYAC PO Last administered on 03/10/18at 08:20; Start 03/09/18 at 16:30; Stop 03/12/18 at 10:38; Status DC Sodium Chloride 1,000 ml @ 1,000 mls/hr Q1H PRN IV hypotension; Start 03/10/18 at 08:30; Stop 03/10/18 at 14:29; Status DC Sodium Chloride 1,000 ml @ 400 mls/hr Q2H30M PRN IV PATENCY; Start 03/10/18 at 08:30; Stop 03/10/18 at 20:29; Status DC Info (PHARMACY MONITORING -- do not chart) 1 each PRN DAILY PRN MC SEE COMMENTS ; Start 03/10/18 at 10:15; Status UNV Info (PHARMACY MONITORING -- do not chart) 1 each PRN DAILY PRN MC SEE COMMENTS ; Start 03/10/18 at 10:15; Status UNV Alteplase, Recombinant (Cathflo) 2 mg 1X ONCE INT CAT Last administered on 03/10 14:04; Start 03/10/18 at 11:45; Stop 03/10/18 at 11:46; Status DC Amino Acids/ Glycerin/ Electrolytes 1,000 ml @ 80 mls/hr [id number] IV Last administered on 03/20/18at 10:35; Start 03/10/18 at 20:00 Alteplase, Recombinant (Cathflo) 2 mg 1X ONCE INT CAT Last administered on 03/10at 21:05; Start 03/10/18 at 20:00; Stop 03/10/18 at 20:16; Status DC Metoprolol Tartrate (Lopressor Vial) 5 mg 1X ONCE IVP Last administered on 03/11at 12:01; Start 03/11/18 at 12:00; Stop 03/11/18 at 12:01; Status DC Hydromorphone HCl (Dilaudid) 1 mg PRN Q4HRS PRN IV PAIN Last administered on at 03:09; Start 03/11/18 at 11:45 Sodium Chloride 500 ml @ 500 mls/hr 1X ONCE IV Last administered on 03/11/18at 12:02; Start 03/11/18 at 11:45; Stop 03/11/18 at 12:45; Status DC Metoprolol Tartrate (Lopressor Vial) 5 mg Q6HRS IVP ; Start 03/11/18 at 18:00; Stop 03/11/18 at 18:00; Status DC Alteplase, Recombinant (Cathflo) 2 mg 1X ONCE INT CAT ; Start 03/11/18 at 18:00 ; Stop 03/11/18 at 18:01; Status DC Metoprolol Tartrate (Lopressor Vial) 5 mg Q6HRS PRN IVP TACHYCARDIA Last administered on 03/19/18at 09:38; Start 03/11/18 at 18:00 Heparin Sodium (Porcine) (Hep Lock Adult) 500 unit 1X ONCE IV Last administered on 03/11/18at 18:20; Start 03/11/18 at 18:00; Stop 03/11/18 at 18:01; Status DC Acetaminophen (Tylenol Supp) 650 mg PRN Q6HRS PRN SD MILD PAIN / TEMP Last administered on 1/7/19at 09:27; Start 03/12/18 at 08:45 Throat Lozenges (Chloraseptic) 1 spray PRN Q2HR PRN PO SORE THROAT Last administered on 03/12/18at 09:26; Start 03/12/18 at 08:45 Pantoprazole Sodium (PROTONIX VIAL for IV PUSH) 40 mg DAILYAC IVP Last administered on 03/18/18at 14:26; Start 03/13/18 at 07:30; Stop 03/19/18 at 09:19 ; Status DC Dexamethasone (Decadron) 8 mg DAILY PO Last administered on 03/19/18at 09:36; Start 03/13/18 at 09:30; Stop 03/20/18 at 08:18; Status DC Ceftriaxone Sodium (Rocephin) 1 gm Q24H IVP ; Start 03/13/18 at 10:30; Stop at 10:34; Status DC Piperacillin Sod/ Tazobactam Sod 3.375 gm/Sodium Chloride 50 ml @ 100 mls/hr Q6HRS IV ; Start 03/13/18 at 12:00; Stop 03/13/18 at 12:00; Status DC Sodium Chloride 1,000 ml @ 1,000 mls/hr Q1H PRN IV hypotension; Start 03/13/18 at 10:05; Stop 03/13/18 at 16:04; Status DC Albumin Human 200 ml @ 200 mls/hr 1X PRN PRN IV Hypotension; Start 03/13/18 at 10:15; Stop 03/13/18 at 16:14; Status DC Info (PHARMACY MONITORING -- do not chart) 1 each PRN DAILY PRN MC SEE COMMENTS ; Start 03/13/18 at 10:15; Status UNV Info (PHARMACY MONITORING -- do not chart) 1 each PRN DAILY PRN MC SEE COMMENTS ; Start 03/13/18 at 10:15; Status UNV Metronidazole 100 ml @ 100 mls/hr Q8HRS IV ; Start 03/13/18 at 10:45; Stop at 10:45; Status DC Piperacillin Sod/ Tazobactam Sod 2.25 gm/Sodium Chloride 50 ml @ 100 mls/hr Q8HRS IV Last administered on 03/20/18at 06:08; Start 03/13/18 at 14:00 Metronidazole 100 ml @ 100 mls/hr Q8HRS IV Last administered on 03/16/18at 06: 19; Start 03/13/18 at 11:00; Stop 03/16/18 at 07:19; Status DC Vancomycin HCl 1.25 gm/Sodium Chloride 250 ml @ 166.667 mls/hr 1X ONCE IV Last administered on 03/14/18at 09:02; Start 03/14/18 at 08:15; Stop 03/14/18 at 09: 44; Status DC Sodium Bicarbonate (Sodium Bicarb Adult 8.4% Syr) 100 meq 1X ONCE IV Last administered on 03/14/18at 11:00; Start 03/14/18 at 10:45; Stop 03/14/18 at 10:46; Status DC Heparin Sodium (Porcine) (Heparin Sodium) 5,000 unit BID SQ Last administered on 03/20/18at 09:19; Start 03/14/18 at 12:00 Lorazepam (Ativan) 0.5 mg PRN Q4HRS PRN IV ANXIETY / AGITATION Last administered on 03/18/18at 01:30; Start 03/14/18 at 17:00 Sodium Bicarbonate (Sodium Bicarb Adult 8.4% Syr) 50 meq 1X ONCE IV Last administered on 03/16/18at 10:15; Start 03/16/18 at 08:30; Stop 03/16/18 at 08:32 ; Status DC Sodium Chloride 1,000 ml @ 1,000 mls/hr Q1H PRN IV hypotension; Start 03/16/18 at 14:59; Stop 03/16/18 at 20:58; Status DC Albumin Human 200 ml @ 200 mls/hr 1X PRN PRN IV Hypotension; Start 03/16/18 at 15:00; Stop 03/16/18 at 20:59; Status DC Sodium Chloride 1,000 ml @ 400 mls/hr Q2H30M PRN IV PATENCY; Start 03/16/18 at 14:59; Stop 03/17/18 at 02:58; Status DC Info (PHARMACY MONITORING -- do not chart) 1 each PRN DAILY PRN MC SEE COMMENTS ; Start 03/16/18 at 15:00; Status UNV Info (PHARMACY MONITORING -- do not chart) 1 each PRN DAILY PRN MC SEE COMMENTS ; Start 03/16/18 at 15:00; Status Cancel Norepinephrine Bitartrate 250 ml @ 1.875 mls/ hr CONT PRN IV SEE I/O RECORD Last administered on 03/16/18at 15:58; Start 03/16/18 at 16:00 Pantoprazole Sodium (Protonix) 40 mg DAILYAC PO Last administered on 03/20/18at 09:01; Start 03/19/18 at 10:00 Sodium Chloride 1,000 ml @ 1,000 mls/hr Q1H PRN IV hypotension; Start 03/19/18 at 11:00; Stop 03/19/18 at 19:00; Status DC Sodium Chloride 1,000 ml @ 400 mls/hr Q2H30M PRN IV PATENCY; Start 03/19/18 at 11:00; Stop 03/19/18 at 19:00; Status DC Info (PHARMACY MONITORING -- do not chart) 1 each PRN DAILY PRN MC SEE COMMENTS ; Start 03/19/18 at 11:15; Status UNV Info (PHARMACY MONITORING -- do not chart) 1 each PRN DAILY PRN MC SEE COMMENTS ; Start 03/19/18 at 11:15; Status UNV Dexamethasone (Decadron) 4 mg DAILY PO Last administered on 03/20/18at 09:02; Start 03/20/18 at 09:00 Active Scripts Active Reported Zoloft (Sertraline Hcl) 100 Mg Tablet 150 Mg PO DAILY Senna Lax (Sennosides) 8.6 Mg Tablet 8.6 Mg PO DAILY Proair Hfa (Albuterol Sulfate) 8.5 Gm Hfa.aer.ad 2 Puff INH PRN Q6HRS PRN Miralax (Polyethylene Glycol 3350) 17 Gm Powd.pack 1 Pkt PO HS Oxycodone Hcl 5 Mg Capsule 20 Mg PO PRN Q4HRS PRN Oxycodone Hcl 5 Mg Capsule 10 Mg PO PRN Q4HRS PRN Ondansetron Odt (Ondansetron) 4 Mg Tab.rapdis 8 Mg PO PRN Q8HRS PRN One-Daily Multi-Vitamin (Multivitamin) 1 Each Tablet 1 Each PO HS Melatonin 3 Mg Tablet 1 Tab PO QHS Ativan (Lorazepam) 0.5 Mg Tablet 0.5 Mg PO PRN Q12HRS PRN Guaifenesin-Codeine Syrup (Guaifenesin/Codeine Phosphate) 118 Ml Liquid 10 Ml PO PRN Q4HRS PRN Flonase Allergy Relief (Fluticasone Propionate) 9.9 Ml [place].susp 1 Sprays NS DAILY FENTANYL 50mcg/hr (Fentanyl) 1 Each Patch.td72 1 Patch TP Q3DAYS Famotidine 40 Mg Tablet 20 Mg PO HS Dexamethasone 4 Mg Tablet 4 Tab PO DAILY Clonidine Hcl 0.1 Mg Tablet 0.1 Mg PO BID Carvedilol 25 Mg Tablet 6.25 Mg PO BIDWMEALS Calcium Acetate 667 Mg Tablet 667 Mg PO TIDWMEALS Vitals/I & O Vital Sign - Last 24 Hours 03/19/18 03/19/18 03/19/18 03/19/18 12:00 12:00 13:00 14:00 Temp 98.8 98.8 Pulse 90 94 94 Resp 30 26 42 B/P (MAP) 140/86 (104) 153/92 (112) 170/101 (124) Pulse Ox 98 90 96 O2 Delivery Room Air Room Air Room Air Room Air 03/19/18 03/19/18 03/19/18 03/19/18 15:00 15:40 16:00 16:00 Temp 98.0 98.0 Pulse 86 86 Resp 25 23 B/P (MAP) 167/108 (127) 139/89 (106) Pulse Ox 98 96 97 O2 Delivery Room Air Room Air Room Air Room Air 03/19/18 03/19/18 03/19/18 03/19/18 20:00 20:48 20:50 23:00 Temp 97.5 97.5 97.5 97.5 Pulse 95 95 105 Resp 18 B/P (MAP) 133/86 (102) 133/86 136/93 (107) Pulse Ox 94 93 O2 Delivery Room Air Room Air Room Air 03/20/18 03/20/18 03/20/18 03/20/18 03:00 03:09 04:07 07:00 Temp 97.8 96.4 97.8 96.4 Pulse 105 112 Resp 24 B/P (MAP) 148/96 (113) 138/95 (109) Pulse Ox 93 93 93 92 O2 Delivery Room Air Room Air Room Air Room Air 03/20/18 03/20/18 03/20/18 08:00 09:02 09:03 Pulse 112 112 B/P (MAP) 138/95 138/95 O2 Delivery Room Air Intake and Output 03/19/18 03/19/18 03/20/18 15:01 23:01 07:01 Intake Total 30 ml 50 ml 150 ml Output Total 0 ml 0 ml Balance 30 ml 50 ml 150 ml Nutrition Consultation Dietary Evaluation: Recommendations by RD: Increase Calorie Intake, Protein supplementation Comments: PPN day 11, consider d/c clear liquids with ensure clear tid advance to renal diet with supplements when able Expected Outcomes/Goals: diet advancement/ tolerance Malnutrition Findings: Food and Nutrition Intake (Mod: <75% est energy req 7days Weight Status: Appropriate ROGERIO MONSALVE III DO Mar 20, 2018 11:38
--- NOTE | 2018-03-20 12:03 | PDOC ---
Subjective: Subjective: Abd feels better, says drinking some, also says passing gas and stool. Objective: Objective: Per RN - taking very little clears, possible DC to [facility]. Vital Signs: Vital Signs Date Time Temp Pulse Resp B/P (MAP) Pulse Ox O2 Delivery O2 Flow Rate FiO2 03/20/18 09:03 112 138/95 03/20/18 08:00 Room Air 03/20/18 07:00 96.4 24 92 96.4 Labs: Laboratory Tests Test 03/20/18 03:28 White Blood Count 18.1 x10^3/uL Red Blood Count 3.16 x10^6/uL Hemoglobin 9.3 g/dL Hematocrit 27.7 % Mean Corpuscular Volume 88 fL Mean Corpuscular Hemoglobin 29 pg Mean Corpuscular Hemoglobin Concent 33 g/dL Red Cell Distribution Width 18.0 % Platelet Count 422 x10^3/uL Neutrophils (%) (Auto) 91 % Lymphocytes (%) (Auto) 4 % Monocytes (%) (Auto) 4 % Eosinophils (%) (Auto) 0 % Basophils (%) (Auto) 1 % Neutrophils # (Auto) 16.5 x10^3uL Lymphocytes # (Auto) 0.7 x10^3/uL Monocytes # (Auto) 0.7 x10^3/uL Eosinophils # (Auto) 0.1 x10^3/uL Basophils # (Auto) 0.1 x10^3/uL Sodium Level 133 mmol/L Potassium Level 4.3 mmol/L Chloride Level 96 mmol/L Carbon Dioxide Level 25 mmol/L Anion Gap 12 Blood Urea Nitrogen 44 mg/dL Creatinine 2.4 mg/dL Estimated GFR (Cockcroft-Gault) 20.8 Glucose Level 98 mg/dL Calcium Level 8.9 mg/dL PE: GEN: NAD - on bedpan LUNGS: NC HEART: RRR ABD: some distention and firmness - stable, doesn't seem particularly tender, quiet NEURO/PSYCH: A & O �3 A/P: Metastatic ovarian cancer ESRD Sepsis Ileus/SBO - taking a few clears, passing gas/stool -- Long-term prognosis poor. CAROL GOMEZ Mar 20, 2018 12:03
--- NOTE | 2018-03-20 13:48 | PDOC ---
Infectious Disease Note Subjective Subjective awake, says is feeling better ROS ROS no n/v/d/sob Vital Sign Vital Signs Vital Signs Date Time Temp Pulse Resp B/P (MAP) Pulse Ox O2 Delivery O2 Flow Rate FiO2 03/20/18 09:03 112 138/95 03/20/18 08:00 Room Air 03/20/18 07:00 96.4 24 92 96.4 Physical Exam PHYSICAL EXAM GENERAL: Propped up in bed, weak appearing, quiet and withdrawn HEENT: Pupils equal and reactive. Oral cavity dry. NGT NECK: Supple. LUNGS: Diminished aeration, nonlabored HEART: S1, S2. ABDOMEN: Distended, hypoactive BM, soft, no grimace to light palpation EXTREMITIES: Without clubbing, cyanosis. 1+ lower extremity edema. SKIN: Warm to touch without any obvious rash. NEUROLOGIC: Awake, nonresponsive to questions Port & HDC clean Labs Lab Laboratory Tests Test 03/20/18 03:28 White Blood Count 18.1 x10^3/uL (4.0-11.0) Red Blood Count 3.16 x10^6/uL (3.50-5.40) Hemoglobin 9.3 g/dL (12.0-15.5) Hematocrit 27.7 % (36.0-47.0) Mean Corpuscular Volume 88 fL (79-100) Mean Corpuscular Hemoglobin 29 pg (25-35) Mean Corpuscular Hemoglobin Concent 33 g/dL (31-37) Red Cell Distribution Width 18.0 % (11.5-14.5) Platelet Count 422 x10^3/uL (140-400) Neutrophils (%) (Auto) 91 % (31-73) Lymphocytes (%) (Auto) 4 % (24-48) Monocytes (%) (Auto) 4 % (0-9) Eosinophils (%) (Auto) 0 % (0-3) Basophils (%) (Auto) 1 % (0-3) Neutrophils # (Auto) 16.5 x10^3uL (1.8-7.7) Lymphocytes # (Auto) 0.7 x10^3/uL (1.0-4.8) Monocytes # (Auto) 0.7 x10^3/uL (0.0-1.1) Eosinophils # (Auto) 0.1 x10^3/uL (0.0-0.7) Basophils # (Auto) 0.1 x10^3/uL (0.0-0.2) Sodium Level 133 mmol/L (136-145) Potassium Level 4.3 mmol/L (3.5-5.1) Chloride Level 96 mmol/L (98-107) Carbon Dioxide Level 25 mmol/L (21-32) Anion Gap 12 (6-14) Blood Urea Nitrogen 44 mg/dL (7-20) Creatinine 2.4 mg/dL (0.6-1.0) Estimated GFR (Cockcroft-Gault) 20.8 Glucose Level 98 mg/dL (70-99) Calcium Level 8.9 mg/dL (8.5-10.1) Micro BC G bacteroides Abd , bacteroides Objective Assessment Acute Resp Failure, Pleurx out Leukocytosis - on Steroids Peritonitis - Bacteroides Mar 08 GNR sepsis - 03/12 Tiny GNR - likely anaerobes. larger rods also -ID still pending. Repeat 03/14 neg so far Metastatic ovarian cancer, Ascites s/p paracentesis - Bacteroides fragilis ESRD on HD Ileus/partial SBO LE Doppler neg 03/14 Plan Plan of Care Cont Zosyn, renal dosing Vanc times one 03/14 May need port and HD cath removed am labs f/u CT A/P G neg ID still pending Critically ill Prognosis is poor d/w D/w nursing LISA OLIVER MD Mar 20, 2018 13:48
--- NOTE | 2018-03-20 15:00 | NUR ---
Discharge Note: MARIA LUISA HAYES [facility] Discharge instructions and discharge home medications reviewed with Other facility and a copy given. All questions have been answered and understanding verbalized. The following instructions and handouts were given: see chart, packet for transfer to [facility] included. Discontinued lines and drains: none- pt continued to [facility] Patient discharged to [facility] for ongoing treatment. Family accompanied pt, who was transported via EMS.
--- NOTE | 2018-04-11 12:19 | DS ---
DATE OF DISCHARGE: 03/20/2018 ADMISSION DIAGNOSES: Elevated potassium, history of ovarian cancer with mets, ascites. DISCHARGE DIAGNOSES: Resolving hyperkalemia, chronic ovarian cancer with mets, end-stage renal disease, on dialysis. HOSPITAL COURSE: The patient is a pleasant 57-year-old female who presented with hyperkalemia. She has a known history of ovarian cancer with metastatic disease. She was admitted. We consulted Nephrology and consulted Hematology/Oncology: We resumed her dialysis and corrected her electrolytes. Over the next few days, she did better, but was quite debilitated. She was discharged to [facility]. DISPOSITION: [facility]. ACTIVITY: As tolerated. DIET: Renal. MEDICATIONS: Please see the MRAD. TOTAL TIME ON DISCHARGE: 38 minutes. ROGERIO MONSALVE DO DR: YUNIOR/spencer JOB#: [id number] / [id number]
== END 2018-03-20 15:00 | DRG 286 ==
LOC: ER 17:41 → 5 SOUTH 21:27 → 1 WEST ICU 03-14 04:44 → 5 SOUTH 03-19 17:49
PROVIDERS: ADMIT Internal Medicine; ATTEND Internal Medicine
PROC: 0JPV3XZ Removal of Tunneled Vascular Access Device from Upper Extremity Subcutaneous Tissue and Fascia, Percutaneous Approach (ICD-10-PCS; principal; 2018-03-06)
PROC: 0JH63XZ Insertion of Tunneled Vascular Access Device into Chest Subcutaneous Tissue and Fascia, Percutaneous Approach (ICD-10-PCS; 2018-03-06)
PROC: 02PYX3Z Removal of Infusion Device from Great Vessel, External Approach (ICD-10-PCS; 2018-03-06)
PROC: 02H633Z Insertion of Infusion Device into Right Atrium, Percutaneous Approach (ICD-10-PCS; 2018-03-06)
PROC: B2141ZZ Fluoroscopy of Right Heart using Low Osmolar Contrast (ICD-10-PCS; 2018-03-06)
PROC: B244ZZZ Ultrasonography of Right Heart (ICD-10-PCS; 2018-03-06)
PROC: 30233N1 Transfusion of Nonautologous Red Blood Cells into Peripheral Vein, Percutaneous Approach (ICD-10-PCS; 2018-03-06)
PROC: 5A1D70Z Performance of Urinary Filtration, Intermittent, Less than 6 Hours Per Day (ICD-10-PCS; 2018-03-06)
PROC: 0D9670Z Drainage of Stomach with Drainage Device, Via Natural or Artificial Opening (ICD-10-PCS; 2018-03-06)
PROC: 5A1D70Z Performance of Urinary Filtration, Intermittent, Less than 6 Hours Per Day (ICD-10-PCS; 2018-03-07)
PROC: 0W9G3ZZ Drainage of Peritoneal Cavity, Percutaneous Approach (ICD-10-PCS; 2018-03-08)
PROC: 5A1D70Z Performance of Urinary Filtration, Intermittent, Less than 6 Hours Per Day (ICD-10-PCS; 2018-03-08)
PROC: 5A1D70Z Performance of Urinary Filtration, Intermittent, Less than 6 Hours Per Day (ICD-10-PCS; 2018-03-10)
PROC: 5A1D70Z Performance of Urinary Filtration, Intermittent, Less than 6 Hours Per Day (ICD-10-PCS; 2018-03-13)
PROC: 5A09457 Assistance with Respiratory Ventilation, 24-96 Consecutive Hours, Continuous Positive Airway Pressure (ICD-10-PCS; 2018-03-14)
PROC: 5A1D70Z Performance of Urinary Filtration, Intermittent, Less than 6 Hours Per Day (ICD-10-PCS; 2018-03-16)
PROC: 5A09357 Assistance with Respiratory Ventilation, Less than 24 Consecutive Hours, Continuous Positive Airway Pressure (ICD-10-PCS; 2018-03-17)
PROC: 5A1D70Z Performance of Urinary Filtration, Intermittent, Less than 6 Hours Per Day (ICD-10-PCS; 2018-03-19)
DX: T82.41XA Breakdown (mechanical) of vascular dialysis catheter, initial encounter (principal); A41.50 Gram-negative sepsis, unspecified; E43 Unspecified severe protein-calorie malnutrition; K65.9 Peritonitis, unspecified; N18.6 End stage renal disease; J96.01 Acute respiratory failure with hypoxia; J96.02 Acute respiratory failure with hypercapnia; M31.1 Thrombotic microangiopathy; N17.9 Acute kidney failure, unspecified; R18.8 Other ascites; C56.9 Malignant neoplasm of unspecified ovary; C80.0 Disseminated malignant neoplasm, unspecified; I13.2 Hypertensive heart and chronic kidney disease with heart failure and with stage 5 chronic kidney disease, or end stage renal disease; K56.600 Partial intestinal obstruction, unspecified as to cause; K56.7 Ileus, unspecified; C78.6 Secondary malignant neoplasm of retroperitoneum and peritoneum; Z99.2 Dependence on renal dialysis; Z91.041 Radiographic dye allergy status; Z91.011 Allergy to milk products; Z91.018 Allergy to other foods; D50.9 Iron deficiency anemia, unspecified; D63.1 Anemia in chronic kidney disease; D73.89 Other diseases of spleen; E78.5 Hyperlipidemia, unspecified; E87.5 Hyperkalemia; F32.9 Major depressive disorder, single episode, unspecified; I25.2 Old myocardial infarction; I50.9 Heart failure, unspecified; I89.0 Lymphedema, not elsewhere classified; J45.909 Unspecified asthma, uncomplicated; K21.9 Gastro-esophageal reflux disease without esophagitis; K74.60 Unspecified cirrhosis of liver; L89.90 Pressure ulcer of unspecified site, unspecified stage; R62.7 Adult failure to thrive; T45.1X5A Adverse effect of antineoplastic and immunosuppressive drugs, initial encounter; B96.6 Bacteroides fragilis [B. fragilis] as the cause of diseases classified elsewhere; Y83.8 Other surgical procedures as the cause of abnormal reaction of the patient, or of later complication, without mention of misadventure at the time of the procedure; Z66 Do not resuscitate; Z51.5 Encounter for palliative care; Z80.1 Family history of malignant neoplasm of trachea, bronchus and lung; Z80.41 Family history of malignant neoplasm of ovary; Z85.43 Personal history of malignant neoplasm of ovary; Z87.891 Personal history of nicotine dependence; Z90.710 Acquired absence of both cervix and uterus; F41.9 Anxiety disorder, unspecified; G47.00 Insomnia, unspecified; G89.29 Other chronic pain; Z90.49 Acquired absence of other specified parts of digestive tract; Y92.89 Other specified places as the place of occurrence of the external cause
CPT/HCPCS: 36415; 36558; 36589; 36600; 49083; 71045; 71046; 74018; 74022; 74176; 76700; 76937; 77001; 80048; 80053; 80069; 82728; 82805; 82962; 83540; 83550; 83605; 83735; 85007; 85014; 85018; 85025; 85027; 85610; 85730; 86706; 86850; 86900; 86901; 86920; 87040; 87071; 87075; 87186; 87205; 87340; 87641; 93005; 93970; 94640; 94660; 94760; 96374; 96375; 96376; 99152; 99153; C1750; C1769; C1892; C9113; J0610; J0690; J0780; J0881; J1170; J1644; J2060; J2250; J2405; J2543; J2997; J3010; J3370; J3490; J7040; J7050; J8540; P9016; P9046; Q0162; 99285-25; G0378; J7030